=== PATIENT | male | born 1940 | race Caucasian/White ===

== ENCOUNTER 2020-05-26 18:31 | Emergency (ER) | payer MEDICARE, MEDICAID, SELFPAY ==
[2020-05-26 18:38] VITALS: BP 210/90; PULSE 102; RESP 20; TEMP 36.9; O2SAT 93; BMI 30.4
[2020-05-26 19:03] VITALS: BP 183/119; PULSE 106; RESP 16; O2SAT 95
--- NOTE | 2020-05-26 19:08 | XRR_ITS ---
PROCEDURE INFORMATION: Exam: XR Chest Exam date and time: 05/26/2020 7:20 PM Age: 79 years old Clinical indication: Other: Dizzy/weak; Additional info: Weakness TECHNIQUE: Imaging protocol: XR of the chest Views: 1 view. COMPARISON: CR Chest 1 [place] [id number] 01/07/2018 8:20 PM FINDINGS: Lungs: Under inflated lungs. No focal consolidation. Interstitium is grossly unremarkable. Pleural spaces: Unremarkable. No pleural effusion. No pneumothorax. Heart/Mediastinum: Mild cardiac enlargement. Bones/joints: Surgical anchors in the proximal right humerus. Bones are demineralized. No acute thoracic fractures. XR/XR chest 1V portable [id number] IMPRESSION: 1. No focal acute pulmonary disease. 2. No change from prior.
--- NOTE | 2020-05-26 19:20 | CTR_ITS ---
PROCEDURE INFORMATION: Exam: CT Head Without Contrast Exam date and time: 05/26/2020 7:27 PM Age: 79 years old Clinical indication: Patient HX: 3-4 episodes of dizziness today w HTN; Additional info: Syncope TECHNIQUE: Imaging protocol: Computed tomography of the head without contrast. Radiation optimization: All CT scans at this facility use at least one of these dose optimization techniques: automated exposure control; mA and/or kV adjustment per patient size (includes targeted exams where dose is matched to clinical indication); or iterative reconstruction. COMPARISON: CT head wo con* [id number] 03/27/2015 9:44 AM RADIATION DOSE METRICS: Total DLP (mGy-cm): 971.99 FINDINGS: Brain: There is moderate cerebral atrophy. No intracranial hemorrhage. No intracranial mass. No acute brain ischemia apparent. No midline shift of brain. Cerebral ventricles: No ventriculomegaly. Bones/joints: Unremarkable. No acute fracture. Paranasal sinuses: Visualized sinuses are unremarkable. No fluid levels. Mastoid air cells: Visualized mastoid air cells are well aerated. Orbital cavity: Orbits are symmetric. Bilateral lens replacements. Vasculature: Intracranial atherosclerosis. Soft tissues: Unremarkable. CT/CT head wo con* [id number] IMPRESSION: 1. No acute intracranial abnormality. 2. No change in the brain from comparison on 03/27/2015. Radiation Dose CTDIVOL = (mGy): DLP = 971.99 (mGy-cm)
--- NOTE | 2020-05-26 19:27 | W.ED.DIZZY ---
HPI - Dizziness General: Chief Complaint: Dizziness Stated Complaint: feels faint Time Seen by Provider: 05/26/20 18:56 Source: patient Mode of arrival: ambulatory Limitations: no limitations History of Present Illness: HPI Narrative: 79-year-old male states that today he has been feeling lightheaded at times and like he may pass out. He states last instance was at 3 PM. He is not had any syncope. Denies any headache denies any chest pain and has not had any shortness of breath. Patient is quite hypertensive here and he denies any known history of high blood pressure but states he does not take his blood pressure on a regular basis. He has no complaints at this time. Associated symptoms: Denies chest pain, chills, nausea or vomiting Review of Systems Const: Denies: fever(s), chills, body aches or change in appetite Eyes: Denies: blurry vision or eye discomfort ENMT: Denies: throat pain or dental pain Card: Denies: chest pain Resp: Denies: dyspnea GI: Denies: abdominal pain, nausea, vomiting or diarrhea : Denies: dysuria Musc: Denies: neck pain or back pain Skin/Breast: Denies: rash Neuro: Reports: dizziness Psych: Denies: depression Daniel/Lymph: Denies: easy bruising All/Imm: Denies: urticaria PFSH ED PFSH: Medical History (Updated 05/26/20 @ 21:05 by Chaz Lopez MD) Atherosclerotic heart disease of [place] coronary artery without angina pectoris Benign essential HTN Chronic episodic atrial fibrillation Dyslipidemia (high LDL; low HDL) Fibromyalgia GERD (gastroesophageal reflux disease) History of atrial fibrillation History of colon polyps Insomnia Lumbar disc disease Surgical History History of cardiac cath History of cholecystectomy History of colonoscopy History of shoulder surgery Family History Brother CAD (coronary artery disease) Social History Smoking and tobacco status: former smoker Alcohol intake: current Alcohol intake frequency: holidays/special occasions only Housing: House Marital status: / History of recent travel: No Physical Exam Const: COMMON NORMALS: no acute distress, patient oriented x3 and healthy appearing HENMT: COMMON NORMALS: normocephalic and atraumatic HEAD & SCALP: normocephalic and atraumatic Eye: COMMON NORMALS: Equal, round and reactive pupils present and EOMs intact bilaterally PUPIL: Yes Equal, round and reactive pupils present Neck/C-Spine: COMMON NORMALS: full ROM and supple Chest: COMMONS NORMALS: normal inspection of the chest and normal palpation of entire chest wall Resp: COMMON NORMALS: normal respiratory effort, No retractions, No use of accessory muscles and clear to auscultation bilaterally AUSCULTATION: clear to auscultation bilaterally Cardio: COMMON NORMALS: regular rate, regular rhythm and No murmurs present (Cardio) RATE: regular rate RHYTHM: regular rhythm GI: COMMON NORMALS: Normal to inspection, nondistended, normoactive bowel sounds present, Soft to palpation, non-tender and no masses PALPATION: Yes Soft to palpation Extremity: COMMON NORMALS: normal to inspection and full ROM Neuro: COMMON NORMALS: patient oriented x3, moves all extremities and no focal motor deficits Psych: COMMON NORMALS: mental status grossly normal, Normal thought process present and cooperative THOUGHT PROCESS: Normal thought process present Skin: COMMON NORMALS: no rashes or lesions noted and no wounds GENERAL SKIN EXAM: no rashes or lesions noted Course Vital Signs: Vital signs: Vital Signs Temperature 98.4 F 05/26/20 18:38 Pulse Rate 76 05/26/20 21:40 Respiratory Rate 16 05/26/20 21:40 Blood Pressure 168/87 05/26/20 21:40 Pulse Oximetry 97 05/26/20 21:40 MDM - Dizziness MDM Narrative: Medical decision making narrative: David presents here with high blood pressure along with near syncope. He is well-appearing here and is asymptomatic here. He said no chest pain his head CT is normal. He has no signs of stroke. Patient's blood pressure here is improved after labetalol. We will start him on metoprolol and he is to take his blood pressure 3 times a day and follow-up his PCP in 3 to 5 days. He is return if he has any return of his symptoms. He understands and agrees to this plan. Lab Data: Labs: Lab Results 05/26/20 05/26/20 05/26/20 Range/Units 19:27 19:27 20:09 WBC 7.9 (4.0-10.0) 10^3/ uL RBC 4.75 (4.1-5.3) 10^6/u L Hgb 15.7 (11.7-16.6) g/dL Hct 45.6 (42.0-52.0) % MCV 96.0 H (80-94) fL MCH 33.1 (28.0-34.0) pg MCHC 34.4 (30.0-36.0) g/dL RDW 12.9 (12.1-15.1) % Plt Count 219 (130-400) 10^3/c mm MPV 9.5 (7.4-10.4) fL Neut % (Auto) 77.8 % Lymph % (Auto) 16.4 % [place] % (Auto) 5.1 % Eos % (Auto) 0.3 % Baso % (Auto) 0.3 % Neut # (Auto) 6.17 (1.8-7.7) 10^3/u L Lymph # (Auto) 1.3 (0.8-4.8) 10^3/u L [place] # (Auto) 0.4 (0.2-0.9) 10^3/u L Eos # (Auto) 0.0 (0.0-0.8) 10^3/u L Baso # (Auto) 0.0 (0.0-0.1) 10^3/u L Nucleated RBC % (a uto) 0 % Nucleated RBCs # 0.0 /100WBC Sodium 137 (136-145) mmol/L Potassium 3.9 (3.5-5.1) mmol/L Chloride 99 (98-107) mmol/L Carbon Dioxide 26 (22-29) mmol/L Anion Gap 15.9 (5-19) BUN 11 (8-23) mg/dL Creatinine 1.0 (0.7-1.2) mg/dL GFR Calculation Not Reportable Glucose 109 (65-115) mg/dL Calculated Osmolal ity 284 L (285-295) mOsm/k g Calcium 9.0 (8.5-10.5) mg/dL Total Bilirubin 0.6 (0.15-1.2) mg/dL AST 17 (0-40) U/L ALT 11 (0-41) U/L Alkaline Phosphata se 79 (40-130) IU/L Total Protein 8.2 (6.6-8.7) g/dL Albumin 4.6 (3.5-5.2) g/dL Globulin 3.6 (1.3-4.6) g/dL Urine Color Yellow (Yellow) Urine Appearance Clear (CLEAR) Urine pH 8 H (5-7) Ur Specific Gravit y 1.010 (1.005-1.030) Urine Protein Neg (Negative) Urine Glucose (UA) 1+ (Normal) Urine Ketones 1+ H (Negative) Urine Blood 2+ H (Negative) Urine Nitrate Negative (Negative) Urine Bilirubin Neg (Negative) Prot Sulfosalicyli c Acd Negative (Negative) Urine Urobilinogen Norm (Negative) mg/dL Ur Leukocyte [place] ase Negative (Negative) Urine RBC 5-10 H (0-2) /hpf Urine WBC 0-4 H (0-5) /hpf Ur Squamous Epith Cells 0-4 H (0-5) /hpf Amorphous Sediment Not Reportable Urine Bacteria Trace (NONE) /hpf Urine Mucus Trace /hpf Imaging Data^: CT Head: Attestation: I personally reviewed and interpreted this imaging study as follows: Radiologist's impression: [address] [address] [address] Scan Report Signed Patient: David Orozco Unit #: [id number] : 1940 Age/Sex: 79 / M ADM Date: 05/26/20 Loc: ER Room/Bed: Attending Dr: Ordering Provider/Ordering MD: Chaz Lopez MD Date of Service: 05/26/20 Procedure(s): CT head wo con* [id number] Accession Number(s): [id number] Report Number: [id number] PROCEDURE INFORMATION: Exam: CT Head Without Contrast Exam date and time: 05/26/2020 7:27 PM Age: 79 years old Clinical indication: Patient HX: 3-4 episodes of dizziness today w HTN; Additional info: Syncope TECHNIQUE: Imaging protocol: Computed tomography of the head without contrast. Radiation optimization: All CT scans at this facility use at least one of these dose optimization techniques: automated exposure control; mA and/or kV adjustment per patient size (includes targeted exams where dose is matched to clinical indication); or iterative reconstruction. COMPARISON: CT head wo con* [id number] 03/27/2015 9:44 AM RADIATION DOSE METRICS: Total DLP (mGy-cm): 971.99 FINDINGS: Brain: There is moderate cerebral atrophy. No intracranial hemorrhage. No intracranial mass. No acute brain ischemia apparent. No midline shift of brain. Cerebral ventricles: No ventriculomegaly. Bones/joints: Unremarkable. No acute fracture. Paranasal sinuses: Visualized sinuses are unremarkable. No fluid levels. Mastoid air cells: Visualized mastoid air cells are well aerated. Orbital cavity: Orbits are symmetric. Bilateral lens replacements. Vasculature: Intracranial atherosclerosis. Soft tissues: Unremarkable. CT/CT head wo con* [id number] IMPRESSION: 1. No acute intracranial abnormality. 2. No change in the brain from comparison on 03/27/2015. EKG Data^: EKG 1: Attestation: I personally reviewed and interpreted this EKG as follows: EKG interpretation date: 05/26/20 EKG interpretation time: 18:47 Interpretation: sinus tach hr [address] or t wave abnormalities qrs 94 qtc 395 Discharge Plan Discharge Patient Disposition: Home Clinical Impression: Near syncope Hypertension Qualifiers: Hypertension type: unspecified Qualified Code(s): I10 - Essential (primary) hypertension Condition: Stable Prescriptions: New metoprolol succinate 50 mg tablet extended release 24 hr 50 mg PO DAILY Qty: 30 RF: 0 No Action ezetimibe [Zetia] 10 mg tablet 10 mg PO DAILY Qty: 90 RF: 3 Aspir-81 81 mg Tablet,Delayed Release (Dr/Ec) 81 mg PO DAILY RF: 0 vitamin E 1 cap PO DAILY RF: 0 Discharge Orders: Discharge ED (Routine); Ordered 05/26/20 Ordered By: Chaz Lopez Referrals: Denis Nowak MD [Primary Care Provider] - 1-3 days Discharge Diet: Advance as tolerated Discharge Activity: Resume usual activity Patient Instructions: Hypertension (ED) Coding Level of Care Code ED Cutting Machine Fixer for Chg Fwd Exam Comprehensive
[2020-05-26] MEDS: labetalol 5 mg/mL SDV 20mL 10 MG IVP (19:31)
--- NOTE | 2020-05-26 19:31 | PC.NURSE ---
PATIENT TO CT
[2020-05-26 19:33] LABS: Basophils % 0.3 %; Eosinophils % 0.3 %; Hematocrit 45.6 % (42.0-52.0); Hemoglobin 15.7 g/dL (11.7-16.6); Lymphocytes # 1.3 10^3/uL (0.8-4.8); Lymphocytes % 16.4 %; Mean Corpuscular HGB Conc 34.4 g/dL (30.0-36.0); Mean Corpuscular Hemoglobin 33.1 pg (28.0-34.0); Mean Platelet Volume 9.5 fL (7.4-10.4); Monocytes # 0.4 10^3/uL (0.2-0.9); Monocytes % 5.1 %; Neutrophils # 6.17 10^3/uL (1.8-7.7); Neutrophils % 77.8 %; Nucleated Red Blood Cells % 0 %; Platelet Count 219 10^3/cmm (130-400); Red Blood Count 4.75 10^6/uL (4.1-5.3); Red Cell Distribution Width 12.9 % (12.1-15.1); White Blood Count 7.9 10^3/uL (4.0-10.0)
--- NOTE | 2020-05-26 19:48 | PC.PHAR ---
pt states he takes care of his own medications-pt states he doesnt take his zetia like he is suppose to pt states he is unsure when he last took
[2020-05-26 19:50] LABS: Alanine Aminotransferase 11 U/L (0-41); Albumin Level 4.6 g/dL (3.5-5.2); Alkaline Phosphatase 79 IU/L (40-130); Anion Gap 15.9 (5-19); Aspartate Amino Transferase 17 U/L (0-40); Blood Urea Nitrogen 11 mg/dL (8-23); Carbon Dioxide 26 mmol/L (22-29); Chloride 99 mmol/L (98-107); Globulin 3.6 g/dL (1.3-4.6); Glucose 109 mg/dL (65-115); Osmolality Calculated 284 mOsm/kg (285-295); Potassium 3.9 mmol/L (3.5-5.1); Sodium 137 mmol/L (136-145); Total Bilirubin 0.6 mg/dL (0.15-1.2); Total Protein 8.2 g/dL (6.6-8.7)
[2020-05-26 20:02] VITALS: BP 189/110; PULSE 90; O2SAT 94
[2020-05-26 20:24] LABS: Add Urine Microscopic? YES; Bacteria Urine TRACE /hpf; Bilirubin Urine Neg (Negative); Blood Urine 2+ (Negative); Glucose Urine UA 1+ (Normal); Ketones Urine 1+ (Negative); Leukocyte Esterase Urine Negative (Negative); Mucus Urine TRACE /hpf; Nitrate Urine Negative (Negative); Protein Urine Neg (Negative); Squamous Epithelial Cell Urine 0-4 /hpf (0-5); Sulfosalicylic Acid Urine Negative (Negative); Urine Appearance Clear (CLEAR); Urine Color Yellow (Yellow); Urobilinogen Urine Norm (Negative); WBC Urine 0-4 /hpf (0-5); pH Urine 8 (5-7)
[2020-05-26 20:31] VITALS: BP 172/86; PULSE 83; RESP 16; O2SAT 97
[2020-05-26 21:40] VITALS: BP 168/87; PULSE 76; RESP 16; O2SAT 97
[2020-05-26 21:41] VITALS: BP 183/104; PULSE 71; RESP 17; O2SAT 96
== END 2020-05-26 21:44 | disposition home or self-care (01) ==
PROVIDERS: Emergency Provider Emergency Medicine; PCP Internal Medicine
DX: R55 Syncope and collapse (principal); I10 Essential (primary) hypertension; Z79.82 Long term (current) use of aspirin; I25.10 Atherosclerotic heart disease of native coronary artery without angina pectoris; I48.20 Chronic atrial fibrillation, unspecified; E78.5 Hyperlipidemia, unspecified; Z87.891 Personal history of nicotine dependence
CPT/HCPCS: 70450; 71045; 80053; 81001; 85025; 96374; 99283; J3490

== ENCOUNTER → 2020-06-28 12:43 | Outpatient (BNVA) | payer MEDICARE, MEDICAID, SELFPAY | PROVIDERS: PCP Internal Medicine; Visit Provider Internal Medicine Cardiovascular Disease | DX: R06.02 Shortness of breath (principal); I50.33 Acute on chronic diastolic (congestive) heart failure; I48.20 Chronic atrial fibrillation, unspecified; E78.5 Hyperlipidemia, unspecified; I10 Essential (primary) hypertension; I25.10 Atherosclerotic heart disease of native coronary artery without angina pectoris | CPT/HCPCS: 80048; 83880 ==

== ENCOUNTER 2020-07-06 19:49 | Observation (INO) | payer MEDICARE, MEDICAID, SELFPAY ==
[2020-07-06 19:57] VITALS: PULSE 49; RESP 18; TEMP 36.6; O2SAT 97; BMI 30.4
--- NOTE | 2020-07-06 20:15 | XRR_ITS ---
PROCEDURE INFORMATION: Exam: XR Chest Exam date and time: 07/06/2020 8:20 PM Age: 79 years old Clinical indication: Pain; Other: Afib; Prior surgery; Surgery type: Gb, RT shoulder; Additional info: Arrythmia TECHNIQUE: Imaging protocol: XR of the chest. Views: 1 view. Total images: 1 COMPARISON: CR XR chest 1V portable [id number] 05/26/2020 7:09 PM FINDINGS: Lungs: No visible active interstitial or alveolar airspace disease. Pleural spaces: Unremarkable. No pleural effusion. No pneumothorax. Heart/Mediastinum: Cardiomegaly with arteriosclerosis. Bones/joints: Right shoulder tendon anchors. Other findings: Obesity. XR/XR chest 1V portable [id number] IMPRESSION: Nonacute.
[2020-07-06 20:18] VITALS: BP 202/100
--- NOTE | 2020-07-06 20:18 | ECG_ITS ---
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 Measurements Intervals [place] Rate: 90 P: RI: QRS: -44 QRSD: 89 T: -8 QT: 366 QTc: 450 Interpretive Statements SINUS RHYTHM LEFT AXIS DEVIATION [QRS AXIS < -30] Compared to ECG 01/07/2018 23:26:51 Left-axis deviation now present T-wave abnormality no longer present Electronically Signed On 07-07-2020 7:15:23 CDT by Anna Soto M.D. [id number]
--- NOTE | 2020-07-06 20:18 | ED_ITS ---
HPI - Dizziness General: Chief Complaint: Dizziness Stated Complaint: htn dizzy Time Seen by Provider: 07/06/20 19:54 Source: patient Mode of arrival: EMS Limitations: no limitations History of Present Illness: HPI Narrative: 79-year-old male brought in by EMS with complaints of dizziness, palpitations, and felt like he was in a pass out. Symptoms were sudden on onset this afternoon. No associated nausea, vomiting, chest pain, diaphoresis. He was seen by cardiology last week, started on losartan for hypertension. Has a remote history of A. fib. EMS noted his pulse to be varying between 30s and 100s. MD elicited complaint: dizziness, lightheadedness and near syncope Onset (ago): hour(s) Associated symptoms: Denies chest pain, chills, diaphoresis, headache(s), nausea, palpitations or vomiting Associated neuro symptoms: Deny numbness in extremities Review of Systems General: Reports: 10 or more systems reviewed and unremarkable except in HPI and below Const: Reports: fatigue; Denies: fever(s), chills, body aches, change in appetite or diaphoresis Eyes: Denies: change in vision or blurry vision ENMT: Denies: throat pain, odynophagia or swelling of lips/tongue Card: Reports: irregular heart rhythm, lightheadedness and pre-syncope; Denies: chest pain, palpitations or swelling of feet/ankles Resp: Denies: dyspnea, productive cough, non-productive cough or wheezing GI: Denies: abdominal pain, nausea, vomiting or diarrhea : Denies: flank pain, difficulty urinating or dysuria Musc: Denies: neck pain, back pain or extremity pain Skin/Breast: Denies: rash, pruritus or erythema Neuro: Denies: headache(s), numbness in extremities or weakness in extremities Endo: Denies: polyuria, polydipsia or tired all the time PFS ED PFSH: Medical History Atherosclerotic heart disease of [place] coronary artery without angina pectoris Benign essential HTN 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 Father Dementia Denies family history of Diabetes CAD (coronary artery disease) Clotting disorder Chronic kidney disease (CKD) Suicide Anesthesia complication Bleeding disorder Lung disease Cancer Stroke Social History Smoking and tobacco status: former smoker Alcohol intake: current Alcohol intake frequency: holidays/special occasions only Housing: House Marital status: / History of recent travel: No Physical Exam Const: COMMON NORMALS: no acute distress, patient oriented x3, no limitations, healthy appearing and alert GENERAL APPEARANCE: cooperative, comfortable and well kempt; not in distress and not anxious ORIENTATION/CONSCIOUSNESS: Yes oriented to person and Yes oriented to place Eye: COMMON NORMALS: Equal, round and reactive pupils present, EOMs intact bilaterally, conjunctivae normal and negative for no scleral icterus CONJUNCTIVA: Yes conjunctivae normal PUPIL: Yes Equal, round and reactive pupils present Neck/C-Spine: COMMON NORMALS: no JVD Resp: COMMON NORMALS: normal respiratory effort EFFORT & INSPECTION: Yes able to speak in complete sentences, Yes symmetric chest movement and No tachypneic Cardio: COMMON NORMALS: no JVD, S1 normal heart sound present, S2 normal heart sound present and Peripheral pulses 2+ throughout RATE: bradycardic RHYTHM: abnormal rhythm irregularly irregular and with ectopic beats HEART SOUNDS: S1 normal heart sound present and S2 normal heart sound present PERIPHERAL PULSES: Peripheral pulses 2+ throughout Extremity: COMMON NORMALS: normal to inspection, full ROM, capillary refill normal and no pedal edema Neuro: COMMON NORMALS: patient oriented x3 and no focal motor deficits SENSORIUM/ORIENTATION: Yes alert, Yes oriented to person and Yes oriented to place Psych: APPEARANCE: Yes well kempt Skin: COMMON NORMALS: no rashes or lesions noted, no wounds, turgor normal and no jaundice GENERAL SKIN EXAM: no rashes or lesions noted and turgor normal Course Vital Signs: Vital signs: Vital Signs Temperature 97.7 F 07/07/20 04:00 Pulse Rate 47 L 07/07/20 04:00 Respiratory Rate 17 07/07/20 04:00 Blood Pressure 147/74 07/07/20 06:19 Pulse Oximetry 95 07/07/20 04:00 MDM - Dizziness MDM Narrative: Medical decision making narrative: 79-year-old male with presyncopal symptoms today, elevated blood pressures. Heart rate irregular, alternating between bradycardia in the high 30s to normal sinus rhythm in the 80s. No heartblock. No ST elevation or depression. He is not having any chest pain. serial troponins stable. Thyroid function tests pending. Discussed with Dr Berkowitz, tactical deception plans officer, who reccommended admission, he will consult tomorrow. NO BP meds. Dr Thomas accepts the admission. Differential Diagnosis: Dizziness Differential Diagnosis: Likely benign paroxysmal positional vertigo, orthostatic hypotension, cerebrovascular accident and transient cerebral ischemia Medical Records: Attestation: I reviewed the patient's medical records. Lab Data: Attestation: I reviewed the patient's lab results. Labs: Lab Results 07/06/20 07/06/20 07/06/20 Range/Units 20:05 20:05 20:05 WBC 9.1 (4.0-10.0) 10^3/ uL RBC 4.56 (4.1-5.3) 10^6/u L Hgb 14.8 (11.7-16.6) g/dL Hct 44.2 (42.0-52.0) % MCV 96.9 H (80-94) fL MCH 32.5 (28.0-34.0) pg MCHC 33.5 (30.0-36.0) g/dL RDW 12.5 (12.1-15.1) % Plt Count 212 (130-400) 10^3/c mm MPV 10.4 (7.4-10.4) fL Neut % (Auto) 71.2 % Lymph % (Auto) 17.3 % [place] % (Auto) 9.6 % Eos % (Auto) 1.3 % Baso % (Auto) 0.3 % Neut # (Auto) 6.44 (1.8-7.7) 10^3/u L Lymph # (Auto) 1.6 (0.8-4.8) 10^3/u L [place] # (Auto) 0.9 (0.2-0.9) 10^3/u L Eos # (Auto) 0.1 (0.0-0.8) 10^3/u L Baso # (Auto) 0.0 (0.0-0.1) 10^3/u L Nucleated RBC % (a uto) 0 % Nucleated RBCs # 0.0 /100WBC PT 14.20 (12.1-14.9) SECO NDS INR 1.06 (0.8-1.2) Sodium 136 (136-145) mmol/L Potassium 3.7 (3.5-5.1) mmol/L Chloride 100 (98-107) mmol/L Carbon Dioxide 26 (22-29) mmol/L Anion Gap 13.7 (5-19) BUN 11 (8-23) mg/dL Creatinine 0.9 (0.7-1.2) mg/dL GFR Calculation Not Reportable Glucose 109 (65-115) mg/dL Calculated Osmolal ity 282 L (285-295) mOsm/k g Calcium 8.6 (8.5-10.5) mg/dL Magnesium 1.9 (1.7-2.3) mg/dL Total Bilirubin 0.7 (0.15-1.2) mg/dL AST 17 (0-40) U/L ALT 10 (0-41) U/L Alkaline Phosphata se 76 (40-130) IU/L Troponin T Baselin e (0-15) ng/L Troponin T 120 Min [place] (0-15) ng/L Delta Troponin T (0-10) ABS# NT-Pro-B Natriuret Pep 191 (0-450) pg/mL Total Protein 7.1 (6.6-8.7) g/dL Albumin 4.4 (3.5-5.2) g/dL Globulin 2.7 (1.3-4.6) g/dL TSH (0.27-4.20) uIU/ mL Free T4 (0.82-1.77) ng/d L Urine Color (Yellow) Urine Appearance (CLEAR) Urine pH (5-7) Ur Specific Gravit y (1.005-1.030) Urine Protein (Negative) Urine Glucose (UA) (Normal) Urine Ketones (Negative) Urine Blood (Negative) Urine Nitrate (Negative) Urine Bilirubin (Negative) Prot Sulfosalicyli c Acd (Negative) Urine Urobilinogen (Negative) mg/dL Ur Leukocyte [place]ils[place] ase (Negative) 07/06/20 07/06/20 07/06/20 Range/Units 20:05 20:05 20:05 WBC (4.0-10.0) 10^3/ uL RBC (4.1-5.3) 10^6/u L Hgb (11.7-16.6) g/dL Hct (42.0-52.0) % MCV (80-94) fL MCH (28.0-34.0) pg MCHC (30.0-36.0) g/dL RDW (12.1-15.1) % Plt Count (130-400) 10^3/c mm MPV (7.4-10.4) fL Neut % (Auto) % Lymph % (Auto) % [place] % (Auto) % Eos % (Auto) % Baso % (Auto) % Neut # (Auto) (1.8-7.7) 10^3/u L Lymph # (Auto) (0.8-4.8) 10^3/u L [place] # (Auto) (0.2-0.9) 10^3/u L Eos # (Auto) (0.0-0.8) 10^3/u L Baso # (Auto) (0.0-0.1) 10^3/u L Nucleated RBC % (a uto) % Nucleated RBCs # /100WBC PT (12.1-14.9) SECO NDS INR (0.8-1.2) Sodium (136-145) mmol/L Potassium (3.5-5.1) mmol/L Chloride (98-107) mmol/L Carbon Dioxide (22-29) mmol/L Anion Gap (5-19) BUN (8-23) mg/dL Creatinine (0.7-1.2) mg/dL GFR Calculation Glucose (65-115) mg/dL Calculated Osmolal ity (285-295) mOsm/k g Calcium (8.5-10.5) mg/dL Magnesium (1.7-2.3) mg/dL Total Bilirubin (0.15-1.2) mg/dL AST (0-40) U/L ALT (0-41) U/L Alkaline Phosphata se (40-130) IU/L Troponin T Baselin e 13 (0-15) ng/L Troponin T 120 Min [place] (0-15) ng/L Delta Troponin T (0-10) ABS# NT-Pro-B Natriuret Pep (0-450) pg/mL Total Protein (6.6-8.7) g/dL Albumin (3.5-5.2) g/dL Globulin (1.3-4.6) g/dL TSH 5.84 H (0.27-4.20) uIU/ mL Free T4 1.17 (0.82-1.77) ng/d L Urine Color (Yellow) Urine Appearance (CLEAR) Urine pH (5-7) Ur Specific Gravit y (1.005-1.030) Urine Protein (Negative) Urine Glucose (UA) (Normal) Urine Ketones (Negative) Urine Blood (Negative) Urine Nitrate (Negative) Urine Bilirubin (Negative) Prot Sulfosalicyli c Acd (Negative) Urine Urobilinogen (Negative) mg/dL Ur Leukocyte Nilsa ase (Negative) 07/06/20 07/06/20 Range/Units 20:45 21:15 WBC (4.0-10.0) 10^3/ uL RBC (4.1-5.3) 10^6/u L Hgb (11.7-16.6) g/dL Hct (42.0-52.0) % MCV (80-94) fL MCH (28.0-34.0) pg MCHC (30.0-36.0) g/dL RDW (12.1-15.1) % Plt Count (130-400) 10^3/c mm MPV (7.4-10.4) fL Neut % (Auto) % Lymph % (Auto) % [place] % (Auto) % Eos % (Auto) % Baso % (Auto) % Neut # (Auto) (1.8-7.7) 10^3/u L Lymph # (Auto) (0.8-4.8) 10^3/u L [place] # (Auto) (0.2-0.9) 10^3/u L Eos # (Auto) (0.0-0.8) 10^3/u L Baso # (Auto) (0.0-0.1) 10^3/u L Nucleated RBC % (a uto) % Nucleated RBCs # /100WBC PT (12.1-14.9) SECO NDS INR (0.8-1.2) Sodium (136-145) mmol/L Potassium (3.5-5.1) mmol/L Chloride (98-107) mmol/L Carbon Dioxide (22-29) mmol/L Anion Gap (5-19) BUN (8-23) mg/dL Creatinine (0.7-1.2) mg/dL GFR Calculation Glucose (65-115) mg/dL Calculated Osmolal ity (285-295) mOsm/k g Calcium (8.5-10.5) mg/dL Magnesium (1.7-2.3) mg/dL Total Bilirubin (0.15-1.2) mg/dL AST (0-40) U/L ALT (0-41) U/L Alkaline Phosphata se (40-130) IU/L Troponin T Baselin e (0-15) ng/L Troponin T 120 Min [place] 12.32 (0-15) ng/L Delta Troponin T -0.68 L (0-10) ABS# NT-Pro-B Natriuret Pep (0-450) pg/mL Total Protein (6.6-8.7) g/dL Albumin (3.5-5.2) g/dL Globulin (1.3-4.6) g/dL TSH (0.27-4.20) uIU/ mL Free T4 (0.82-1.77) ng/d L Urine Color Yellow (Yellow) Urine Appearance Clear (CLEAR) Urine pH 8 H (5-7) Ur Specific Gravit y 1.010 (1.005-1.030) Urine Protein Neg (Negative) Urine Glucose (UA) Trace H (Normal) Urine Ketones Negative (Negative) Urine Blood Neg (Negative) Urine Nitrate Negative (Negative) Urine Bilirubin Neg (Negative) Prot Sulfosalicyli c Acd Negative (Negative) Urine Urobilinogen Norm (Negative) mg/dL Ur Leukocyte Nilsa ase Negative (Negative) EKG Data^: EKG 1: Attestation: I personally reviewed and interpreted this EKG as follows: EKG interpretation date: 07/06/20 EKG interpretation time: 20:25 Computer generated interpretation: Indeterminate rhythm, rate 90, Discharge Plan Discharge Patient Disposition: Placed in Observation Admit Provider: Antoinette Thomas Clinical Impression: Symptomatic bradycardia Coding Level of Care Code ED Osd Clerk for Chg Fwd Exam Comprehensive
[2020-07-06 20:27] LABS: Basophils % 0.3 %; Eosinophils # 0.1 10^3/uL (0.0-0.8); Eosinophils % 1.3 %; Hematocrit 44.2 % (42.0-52.0); Hemoglobin 14.8 g/dL (11.7-16.6); Lymphocytes # 1.6 10^3/uL (0.8-4.8); Lymphocytes % 17.3 %; Mean Corpuscular HGB Conc 33.5 g/dL (30.0-36.0); Mean Corpuscular Hemoglobin 32.5 pg (28.0-34.0); Mean Corpuscular Volume 96.9 fL (80-94); Mean Platelet Volume 10.4 fL (7.4-10.4); Monocytes # 0.9 10^3/uL (0.2-0.9); Monocytes % 9.6 %; Neutrophils # 6.44 10^3/uL (1.8-7.7); Neutrophils % 71.2 %; Nucleated Red Blood Cells % 0 %; Platelet Count 212 10^3/cmm (130-400); Red Blood Count 4.56 10^6/uL (4.1-5.3); Red Cell Distribution Width 12.5 % (12.1-15.1); White Blood Count 9.1 10^3/uL (4.0-10.0)
[2020-07-06 20:39] LABS: Troponin(5th) Baseline 13 ng/L (0-15)
[2020-07-06 20:40] LABS: INR 1.06 (0.8-1.2)
[2020-07-06 20:46] LABS: Alanine Aminotransferase 10 U/L (0-41); Albumin Level 4.4 g/dL (3.5-5.2); Alkaline Phosphatase 76 IU/L (40-130); Aspartate Amino Transferase 17 U/L (0-40); Blood Urea Nitrogen 11 mg/dL (8-23); Calcium 8.6 mg/dL (8.5-10.5); Carbon Dioxide 26 mmol/L (22-29); Chloride 100 mmol/L (98-107); Globulin 2.7 g/dL (1.3-4.6); Glucose 109 mg/dL (65-115); Magnesium 1.9 mg/dL (1.7-2.3); NT Pro B Type Natriuretic Pept 191 pg/mL (0-450); Osmolality Calculated 282 mOsm/kg (285-295); Sodium 136 mmol/L (136-145); Total Bilirubin 0.7 mg/dL (0.15-1.2); Total Protein 7.1 g/dL (6.6-8.7)
[2020-07-06 20:53] LABS: Anion Gap 13.7 (5-19); Potassium 3.7 mmol/L (3.5-5.1)
[2020-07-06 20:57] LABS: Add Urine Microscopic? NO; Charge for UA Resulting for Rev
[2020-07-06 21:04] LABS: Bilirubin Urine Neg (Negative); Blood Urine Neg (Negative); Glucose Urine UA Trace (Normal); Ketones Urine Negative (Negative); Leukocyte Esterase Urine Negative (Negative); Nitrate Urine Negative (Negative); Protein Urine Neg (Negative); Sulfosalicylic Acid Urine Negative (Negative); Urine Appearance Clear (CLEAR); Urine Color Yellow (Yellow); Urobilinogen Urine Norm (Negative); pH Urine 8 (5-7)
[2020-07-06 21:27] LABS: Thyroid Stimulating Hormone 5.84 uIU/mL (0.27-4.20)
--- NOTE | 2020-07-06 21:31 | PM.HP ---
Providers/Chief Complaint Primary Care Provider: Denis Nowak MD Chief Complaint: htn dizzy History of Present Illness David Orozco is a 79 year old male who has known history of atherosclerotic heart disease, BPH, paroxysmal A. fib(refused anticoagulation), has been recently evaluated for dizziness and hypertension by cardiology presented today with chief complaint of dizziness. Patient was in usual state of health until today when he started experiencing dizziness which he is describing as lightheadedness, no recent syncope or fall, he was [place] [facility] [facility] when his symptoms started. He did not experience any fever, chest pain, shortness of breath, as per the he seemed a bit confused as well at home. He does not take any AV zachary blocking agent, never took any anticoagulating agent, has mild coronary disease as per cardiac cath 2003. No previous history of thyroid disease. Diagnostics in the ER revealed sinus bradycardia, patient was asymptomatic, his was hemodynamically stable, TSH 5.8 otherwise electrolytes are normal magnesium 1.9, hypertensive, case was discussed with cardiology who recommended monitoring, no intervention because he is asymptomatic in the ER, his lowest heart rate was 45 detected in the ER Review of Systems Eyes: Denies: change in vision ENMT: Denies: throat pain Card: Reports: lightheadedness; Denies: chest pain Resp: Denies: dyspnea GI: Denies: abdominal pain : Denies: flank pain Musc: Denies: neck pain Skin/Breast: Denies: rash Neuro: Denies: headache(s) Psych: Denies: anxiety Endo: Denies: polyuria Daniel/Lymph: Denies: easy bruising All/Imm: Denies: urticaria Medications/Allergies Home Medications Medication Instructions Recorded Confirmed Last Taken Type aspirin [Aspir-81] 81 mg PO QAM 05/26/20 07/06/20 07/06/20 History vitamin E 1 cap PO QAM 05/26/20 07/06/20 07/06/20 History Zetia 10 mg PO QAM 07/06/20 07/06/20 07/06/20 History losartan 50 mg PO QAM 07/06/20 07/06/20 07/06/20 History Allergies Allergy/AdvReac Type Severity Reaction Status Date / Time atorvastatin [From Lipitor] Allergy Unknown Verified 07/06/20 20:59 cimetidine [From Tagamet] Allergy ALGY-Anaphy Verified 07/06/20 20:59 laxis pravastatin Allergy Unknown Verified 07/06/20 20:59 acetaminophen [From [place]] AdvReac ADR-Itching Verified 07/06/20 20:59 hydrocodone [From [place]] AdvReac ADR-Itching Verified 07/06/20 20:59 PFSH Acute PFSH: Medical History (Updated 07/06/20 @ 22:54 by Antoinette Thomas MD) Atherosclerotic heart disease of [place] coronary artery without angina pectoris Benign essential HTN 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 Father Dementia Denies family history of Diabetes CAD (coronary artery disease) Clotting disorder Chronic kidney disease (CKD) Suicide Anesthesia complication Bleeding disorder Lung disease Cancer Stroke Social History Smoking and tobacco status: former smoker Alcohol intake: current Alcohol intake frequency: holidays/special occasions only Housing: House Marital status: / History of recent travel: No Vitals/I&O/Wt Last Vital Signs Temp 97.8 F 07/06/20 19:57 Pulse 49 L 07/06/20 19:57 Resp 18 07/06/20 19:57 BP 202/100 07/06/20 20:18 Pulse Ox 97 07/06/20 19:57 Weight last 48 hrs Weight 90.718 kg Physical Exam Narrative: EXAM NARRATIVE: Pleasant elderly male Was laying supine in his bed no hemodynamic instability heart rate in 60s at the time of my evaluation No active chest pain shortness of breath abdominal pain S1, S2 no murmur appreciated No signs of heart failure Abdomen distended central obesity nontender Lower symmetry no edema gangrene ulcer Appropriate mood and affect GCS 15 alert oriented x3 No neurological deficit Data : 07/06/20 20:05 07/06/20 20:05 A&P Assessment and plan (1) Symptomatic bradycardia: Symptomatic bradycardia patient described his symptoms as lightheadedness Hypertensive, no active chest pain confusion or shortness of breath No AV zachary blocking agent detected in his home medications No previous history of thyroid disease however TSH is 5.8 will check free T4 level, hold off on starting levothyroxine for now Will follow up with echo in the morning No intervention needed as he is asymptomatic during my evaluation and heart rate is in 60s Monitor with telemetry No active chest pain, troponin not elevated, highly doubt coronary ischemia Consider cardiology evaluation before discharge if he would require Holter monitoring Status: Acute Additional A&P Information History of atrial fibrillation: Not on any AV zachary blocking agent, patient refused anticoagulation in the past Currently in sinus bradycardia Essential hypertension: We will increase dose of losartan to 100 mg daily Cardiac diet DVT prophylaxis Lovenox Full code Attestations Medical Necessity Statement*: Anticipating discharge in less than 48 hours overnight monitoring needed because of symptomatic bradycardia Time Spent in Patient Care: (>than 50% of time spent in counselling and/or direct pt care on unit). 40mins Coding Level of Care Code Acute Car Installations Supervisor for Victor M Hale Diagnoses Symptomatic bradycardia R00.1
[2020-07-06 21:39] LABS: Troponin 5 2HR 12.32 ng/L (0-15)
[2020-07-06 21:40] LABS: Troponin 5 2HR Delta -0.68 ABS# (0-10)
--- NOTE | 2020-07-06 22:16 | PC.NURSE ---
Addendum entered by Kait Ken, LAURO 07/06/20 22:16: Physician was Dr. Thomas Original Note: This nurse got verbal ok to admit the patient to Med Surg with tele.
--- NOTE | 2020-07-06 22:18 | ECG_ITS ---
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 Measurements Intervals [place] Rate: 45 P: 61 [place]: 203 QRS: 20 QRSD: 87 T: 43 QT: 410 QTc: 357 Interpretive Statements SINUS BRADYCARDIA LOW QRS VOLTAGE IN PRECORDIAL LEADS [QRS DEFLECTION < 1.0 mV IN CHEST LEADS] Compared to ECG 07/06/2020 20:22:57 Low QRS voltage now present Atrial fibrillation no longer present Left-axis deviation no longer present Electronically Signed On 07-07-2020 19:19:17 CDT by Maximino Berkowitz M.D. [id number]
[2020-07-06 23:04] VITALS: BP 182/76; PULSE 74; RESP 18; O2SAT 96
[2020-07-06 23:08] VITALS: PULSE 47; RESP 18; O2SAT 96
[2020-07-06 23:17] LABS: Free T4 Free Thyroxine 1.17 ng/dL (0.82-1.77)
[2020-07-06 23:36] VITALS: BP 193/93; PULSE 48; RESP 21; TEMP 36.6; O2SAT 94
[2020-07-06] MEDS: enoxaparin 40 mg/0.4 mL Syringe SUBCUT (23:37)
[2020-07-07] VITALS (10 sets, daily range): BP systolic 147–181; BP diastolic 68–96; PULSE 47–88; RESP 16–18; TEMP 36.4–37.1; O2SAT 92–95
--- NOTE | 2020-07-07 02:18 | ECG_ITS ---
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 Measurements Intervals [place] Rate: 44 P: [place]: QRS: -1 QRSD: 90 T: 44 QT: 418 QTc: 360 Interpretive Statements SINUS BRADYCARDIA WITH 2ND DEGREE AV BLOCK, MOBITZ TYPE II Compared to ECG 07/06/2020 22:44:31 No significant changes Electronically Signed On 07-18-2020 17:48:06 CDT by Anna Soto M.D. [email or web address] [email or web address] anderson hospitalBio-[facility]/store/[id number]
[2020-07-07] MEDS: ezetimibe 10 mg Tablet PO (06:19)
[2020-07-07] MEDS: losartan 50 mg Tablet PO (06:19)
[2020-07-07] MEDS: aspirin 81 mg EC Tablet PO (06:20)
[2020-07-07] MEDS: magnesium oxide 400 mg tablet PO ×2 (08:38→17:41)
--- NOTE | 2020-07-07 14:51 | PM.PN ---
Subjective Subjective: Interval history: Denies lightheadedness currently. No chest pain or pressure. Discussed with him regarding bradycardia, possible heart block, discussed regarding TSH abnormality, what appears to be subclinical hypothyroidism. Discussed obtaining cardiology consultation. He is agreeable. Vitals/I&O/Wt Last Vital Signs Temp 97.6 F 07/07/20 11:07 Pulse 62 07/07/20 11:07 Resp 16 07/07/20 11:07 BP 147/74 07/07/20 11:07 Pulse Ox 93 07/07/20 11:07 07/06/20 07/07/20 07/07/20 22:59 06:59 14:59 Intake Total 100 / 100 720 / 720 Output Total 300 / 300 Balance -200 / -200 720 / 720 Weight last 48 hrs Weight 90.718 kg Physical Exam Const: COMMON NORMALS: no acute distress and patient oriented x3 HENMT: COMMON NORMALS: oropharynx normal Neck/C-Spine: COMMON NORMALS: no JVD Resp: COMMON NORMALS: normal respiratory effort and clear to auscultation bilaterally AUSCULTATION: clear to auscultation bilaterally Cardio: COMMON NORMALS: no JVD, regular rhythm, S1 normal heart sound present, S2 normal heart sound present and No murmurs present (Cardio) RATE: bradycardic RHYTHM: regular rhythm HEART SOUNDS: S1 normal heart sound present and S2 normal heart sound present GI: COMMON NORMALS: Normal to inspection, nondistended, normoactive bowel sounds present, Soft to palpation and non-tender PALPATION: Yes Soft to palpation Extremity: COMMON NORMALS: no joint enlargement and no pedal edema Neuro: COMMON NORMALS: patient oriented x3 and moves all extremities Skin: COMMON NORMALS: no rashes or lesions noted GENERAL SKIN EXAM: no rashes or lesions noted Data : 07/06/20 20:05 07/06/20 20:05 A&P Assessment and plan (1) Symptomatic bradycardia: Second-degree block Mobitz 2 indicated by machine, but to me looks could be sinus arrest. Appreciate cardiology consultation. Continue to monitor on telemetry. Orthostatic precautions. Follow TTE. Monitor with telemetry Checked orthostatic blood pressures. Not significantly orthostatic. Status: Acute Additional A&P Information History of atrial fibrillation: Not on any AV zachary blocking agent, patient refused anticoagulation in the past. Monitor. Essential hypertension: losartan 100 mg daily Cardiac diet DVT prophylaxis Lovenox Full code Attestations Medical Necessity Statement*: Continue hospitalization for assessment of management of symptomatic bradycardia, ending echocardiogram, cardiology assessment, consideration of need of pacemaker. Coding Level of Care Code Acute Staffing And Scheduling Coordinator for Anag Fwd Exam Comprehensive Diagnoses Symptomatic bradycardia R00.1
--- NOTE | 2020-07-07 16:28 | PC.NURSE ---
Called report to Sergio RN on CSU. Report given all questions answered. Patient transferred at this time.
--- NOTE | 2020-07-07 17:27 | P.CONIM_ITS ---
Providers/Reason For Consult Consulting Physican/Specialty*: Cardiology Reason for Consult*: Bradycardia Attending Physician: Lex Dill Primary Care Provider: Denis Nowak MD History of Present Illness History of Present Illness David Orozco is a 79 year old male past medical history significant for no significant cardiac problem other than hyperlipidemia has been admitted with recurrent dizziness and presyncope. On telemetry he was found to be bradycardic occasionally his heart rate dips down to 38 for 2 or 3 beats and then goes right away in the 50s to 60s. According to him for many months he has been feeling this ongoing dizziness and nobody was able to figure it out. He denies dizziness or presyncopal episode while sitting or laying down only when he tried to stand up or occasionally when he is walking he noticed lightheadedness. He denies palpitation pounding or racing of the heart. He is not on any zachary antoinette. TSH is also normal. He denies history of coronary artery disease and denies any chest pain. Twelve-lead EKG is suggestive of possible intermittent sinus arrest. No other signs of ischemia noted. Review of Systems General: Reports: 10 or more systems reviewed and unremarkable except in HPI and below Const: Reports: fatigue; Denies: fever(s), chills, body aches, change in appetite or diaphoresis Eyes: Denies: change in vision or blurry vision ENMT: Denies: throat pain, odynophagia or swelling of lips/tongue Card: Reports: irregular heart rhythm, lightheadedness and pre-syncope; Denies: chest pain, palpitations or swelling of feet/ankles Resp: Denies: dyspnea, productive cough, non-productive cough or wheezing GI: Denies: abdominal pain, nausea, vomiting or diarrhea : Denies: flank pain, difficulty urinating or dysuria Musc: Denies: neck pain, back pain or extremity pain Skin/Breast: Denies: rash, pruritus or erythema Neuro: Denies: headache(s), numbness in extremities or weakness in extremities Psych: Reports: sleeping more; Denies: anxiety Endo: Denies: polyuria, polydipsia or tired all the time Daniel/Lymph: Denies: easy bruising All/Imm: Denies: urticaria or acute wheezing Meds/Allergies Home Medications and Allergies Home Medications Medication Instructions Recorded Confirmed Last Taken Type aspirin 81 mg PO QAM 05/26/20 07/06/20 07/06/20 History vitamin E 1 cap PO QAM 05/26/20 07/06/20 07/06/20 History Zetia 10 mg PO QAM 07/06/20 07/06/20 07/06/20 History losartan 50 mg PO QAM 07/06/20 07/06/20 07/06/20 History Allergies Allergy/AdvReac Type Severity Reaction Status Date / Time atorvastatin [From Lipitor] Allergy Unknown Verified 07/06/20 20:59 cimetidine [From Tagamet] Allergy ALGY-Anaphy Verified 07/06/20 20:59 laxis pravastatin Allergy Unknown Verified 07/06/20 20:59 acetaminophen [From [place]] AdvReac ADR-Itching Verified 07/06/20 20:59 hydrocodone [From [place]] AdvReac ADR-Itching Verified 07/06/20 20:59 Current Medications Current Medications Generic Name Dose Route Start Last Admin Trade Name Freq PRN Reason Stop Dose Admin Aspirin 81 mg 07/07/20 06:00 07/07/20 06:20 Aspirin 81 Mg Ec Tablet PO 81 mg QAM MISTY Administration Ezetimibe 10 mg 07/07/20 06:00 07/07/20 06:19 Ezetimibe 10 Mg Tablet PO 10 mg QAM MISTY Administration Enoxaparin Sodium 40 mg 07/06/20 23:18 07/06/20 23:37 Enoxaparin 40 Mg/0.4 Ml Syringe SUBCUT 40 mg Q24H MISTY Administration Losartan Potassium 50 mg 07/07/20 06:00 07/07/20 06:19 Losartan 50 Mg Tablet PO 50 mg QAM MISTY Administration Magnesium Oxide 400 mg 07/07/20 09:00 07/07/20 08:38 Magnesium Oxide 400 Mg Tablet PO 400 mg BID MISTY Administration PFSH Acute PFSH: Medical History Atherosclerotic heart disease of [place] coronary artery without angina pectoris Benign essential HTN 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 Father Dementia Denies family history of Diabetes CAD (coronary artery disease) Clotting disorder Chronic kidney disease (CKD) Suicide Anesthesia complication Bleeding disorder Lung disease Cancer Stroke Social History Smoking and tobacco status: former smoker Alcohol intake: current Alcohol intake frequency: holidays/special occasions only Housing: House Marital status: / History of recent travel: No Dietary Habits: Current diet type/program: regular Vitals/I&O/Wt Last Vital Signs Temp 97.6 F 07/07/20 11:07 Pulse 55 L 07/07/20 14:00 Resp 16 07/07/20 11:07 BP 147/74 07/07/20 11:07 Pulse Ox 93 07/07/20 11:07 07/07/20 07/07/20 07/07/20 06:59 14:59 22:59 Intake Total 100 / 100 720 / 720 Output Total 300 / 300 Balance -200 / -200 720 / 720 Weight last 48 hrs Weight 200 lb Physical Exam Narrative: EXAM NARRATIVE: GENERAL: Patient is alert, awake and oriented x3. NECK: No jugular vein distension. HEENT: No cyanosis. No icterus. No pallor. HEART: Regular S1 and S2. No murmur, rub or gallop. LUNGS: Clear to auscultate bilaterally. ABDOMEN: Soft, nontender and nondistended. Positive bowel sounds. No guarding, rebound or tenderness. CENTRAL NERVOUS SYSTEM: Grossly nonfocal. EXTREMITIES: Lower extremities without edema bilaterally. 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 He never had dizzy or presyncopal episode while sitting or lying down. He denies any significant shortness of breath or extreme tiredness. His heart rate mostly stays in the 50s occasional dips down to high 30s. We therefore recommending event monitor and treadmill stress test for chronotropic competence. According to the patient he would like to go home and will be taken care of by his friend. He is going to flower buncher or picker event monitor on Friday. Advised in case of worsening of symptoms dizziness fainting he should call 911 and come to ER. We will follow him up in our clinic. Status: Acute (2) Benign essential HTN: Well-controlled. Status: Acute Coding Level of Care Code Acute Paper Counter for g Fwd Diagnoses Bradycardia R00.1 Benign essential HTN I10
--- NOTE | 2020-07-07 20:10 | PC.NURSE ---
Discharge instructions explained to patient with verbalized understanding from patient. All appointment follow-ups were faxed to [facility], Centralized Scheduling and Dr. Nowak's office. IV removed from right wrist with cath intact. Patient taken via wheelchair to family waiting outside. Vital signs stable. Patient has no complaints of pain or other needs at this time.
--- NOTE | 2020-07-07 22:23 | PM.DCS ---
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 However, he otherwise had remained asymptomatic. No significant pauses have been noted. Troponin, EKG work-up not significant for acute ischemia. He remained chest pain-free. Blood pressure was elevated on presentation, as high as 202/100, however, today mostly closer to goal in the 140s/60s-70s. Heart rates here noted variable, mostly in the 40s, up into the 80s. Not currently on any zachary blocking agents. Electrolytes were okay. No suggestion of acute infection/sepsis. TSH noted mildly elevated at 5.84, but with normal free T4, considered subclinical hypothyroidism, not likely contributing. Will benefit from follow-up in outpatient settings. He was assessed by cardiology. Machine read of one of the EKGs reported possible second-degree block Mobitz 2, however, consensus is this was not accurate per discussion with cardiology. He does require, however, additional monitoring and work-up as discussed with him and his daughter by myself and with him by cardiology. Cardiology recommends additional assessment by treadmill stress test, as well as cardiac monitoring to assess for any severe bradycardia during episodes of symptoms, prolonged pauses. Discussed with him that these can be set up on Friday. We discussed staying in the hospital due to risk of significant bradycardia/pauses which are not identified occurring while he is awaiting the additional assessment. He preferred to return home. Discussed with him consideration that if he is returning home to have somebody available around who may keep an eye on him and call for help in case he develops any severe symptoms. He remained otherwise asymptomatic while in the hospital, either at rest, and with ambulation. The additional work-up is requested for him and he knows to follow-up on this at earliest available time which is Friday. Due to elevated blood pressure he is encouraged to adhere to the blood pressure medication given to him before, losartan 50 mg. He is encouraged to monitor blood pressure at least twice daily, in addition to his heart rates, record values. In case blood pressures are elevated he is encouraged to take an extra dose of losartan or seek medical attention if they are very high. Please follow-up on all of the above with him in office. Physical Exam Narrative: EXAM NARRATIVE: Daughter at bedside. Const: COMMON NORMALS: no acute distress and patient oriented x3 OTHER: He reports he is feeling well. Denies any complaints. We have had extensive discussion of all the above. At 1 point during the visit heart rate came down to as low as 37 for several beats, however, he remained asymptomatic. Heart rate continues in the 50s. HENMT: COMMON NORMALS: oropharynx normal Neck/C-Spine: COMMON NORMALS: no JVD Resp: COMMON NORMALS: normal respiratory effort and clear to auscultation bilaterally AUSCULTATION: clear to auscultation bilaterally Cardio: COMMON NORMALS: no JVD, regular rhythm, S1 normal heart sound present, S2 normal heart sound present and No murmurs present (Cardio) RHYTHM: regular rhythm HEART SOUNDS: S1 normal heart sound present and S2 normal heart sound present GI: COMMON NORMALS: Normal to inspection, nondistended, normoactive bowel sounds present, Soft to palpation and non-tender PALPATION: Yes Soft to palpation Extremity: COMMON NORMALS: no joint enlargement and no pedal edema Neuro: COMMON NORMALS: patient oriented x3 and moves all extremities Skin: COMMON NORMALS: no rashes or lesions noted GENERAL SKIN EXAM: no rashes or lesions noted Discharge Data Data Completed and Pending: Completed Studies During Hospitalization Category Date Time Status XR chest 1V martha ble [id number] Stat Exams 07/06/20 20:15 Completed Pending at discharge Category Date Time Status CV echo complete* [id number] Routine Ultrasound 07/07/20 23:18 Taken Labs from last 24 hours 07/07/20 07/06/20 02:26 20:05 Troponin T Hi Sens 6Hr 15.10 H Troponin T Hi Sens 6Hr Delta 2.10 Free T4 1.17 Vitals: Last Vital Signs Temp 98.7 F 07/07/20 19:40 Pulse 51 L 07/07/20 19:40 Resp 17 07/07/20 19:40 BP 149/68 07/07/20 19:40 Pulse Ox 92 07/07/20 19:40 Discharge Plan Discharge Patient Disposition: Home Condition: Stable Prescriptions: Continued aspirin 81 mg Tablet,Delayed Release (Dr/Ec) 81 mg PO QAM RF: 0 vitamin E 1 cap PO QAM RF: 0 losartan 50 mg tablet 50 mg PO QAM RF: 0 Zetia 10 mg tablet 10 mg PO QAM RF: 0 Discharge Orders: Discharge Order (Routine); Ordered 07/07/20 Ordered By: Lex Dill Other Ambulatory Orders: Cardiac Stress Test Request (Routine) Timeframe: 2 Days Facility: [facility] - Location: Cardiac Diagnostic Laboratory Ordered By: Lex VALIENTE cardiac event monitor (Routine) Timeframe: 2 Days Facility: [facility] - Location: Cardiac Diagnostic Laboratory Ordered By: Lex Dill Referrals: Denis Nowak MD [Primary Care Provider] - 4-7 days (You will have an appointment with Dr Nowak in 4-[address] Nowak's office will call on Friday, July 10, 2020 with this appointment. If you do not hear from them by end of day on Friday, please call his office. ) Antoinette Choi MD [Physician] - 2 weeks (You will have an appointment with Dr Choi in 2 weeks. [facility] will call on Friday, July 10, 2020 with this appointment. If you do not hear from them by end of day on Friday, please call his office. ) Luz Harris FNP [Nurse Practitioner] - 1 week (You will have an appointment with Luz Harris in 1 week. [facility] will call on Friday, July 10, 2020 with this appointment. If you do not hear from them by end of day on Friday, please call his office.) Discharge Diet: Cardiac Discharge Activity: Increase activity as tolerated and Limit activity as instructed Patient Instructions: Losartan (By mouth), Bradycardia (GEN), Hypertension (GEN) Activity Restrictions/Additional Instructions: Please monitor your heart rate and blood pressures at home. Please follow-up on Friday to be set up for event monitor, as well as for stress test to closer assess for slow heart rate or pauses. Until that time please have someone stay with you to make sure you do not develop any concerning symptoms. If you do, please call 911. Please avoid heights, avoid driving or operating heavy machinery. Please take the blood pressure medication prescribed by your heart doctor, losartan 50 mg every morning. Please check your blood pressure twice daily, if on recheck of the blood pressure in the afternoon/evening it is still elevated, above 170 top number or above 100 bottom number, please take additional dose of the same medication. If your blood pressure is elevated above 190 top number or above 110 bottom number, please call the cardiology office, or if you are having symptoms like chest pain, dizziness, shortness of breath, or others, call 911. Discharge Attestations Time Spent in Discharge Care*: greater than 30 min Quality Metrics Clinical Quality Measures During this hospital stay, did patient experience: None Coding Level of Care Code Acute Chg FW DC note Diagnoses Bradycardia R00.1 Benign essential HTN I10
--- NOTE | 2020-07-07 23:18 | USCV_ITS ---
David Orozco Age: 79 Gender: M : 1940 Exam Date: 07/07/2020 15:28 Ordering Phys: Antoinette Thomas MD Technologist: Exam Location: [facility] [place] Indication: CHEST PAIN BP: 134 / 75 HR: 64 Rhythm: Sinus Technical Quality: Adequate MEASUREMENTS (Male / Female) Normal Values 2D ECHO LV Diastolic Diameter PLAX 3.7 cm 4.2 - 5.9 / 3.9 - 5.3 cm LV Systolic Diameter PLAX 2.5 cm IVS Diastolic Thickness 1.2 cm 0.6 - 1.0 / 0.6 - 0.9 cm IVS Systolic Thickness 1.6 cm LVPW Diastolic Thickness 0.9 cm 0.6 - 1.0 / 0.6 - 0.9 cm LVPW Systolic Thickness 1.3 cm LVOT Diameter 2.0 cm LV Ejection Fraction 2D Teich 62.1 % LV Ejection Fraction MOD 2C 45.5 % LV Ejection Fraction 2C AL 45.9 % LA Diameter 3.9 cm LA Width 4.2 cm LA Height 5.3 cm RA Width 4.3 cm RA Height 4.9 cm M-MODE LV Diastolic Diameter MM 4.9 cm 4.2 - 5.9 / 3.9 - 5.3 cm LV Systolic Diameter MM 2.6 cm LV Ejection Fraction MM Teich 78.7 % IVS Diastolic Thickness MM 1.1 cm 0.6 - 1.0 / 0.6 - 0.9 cm IVS Systolic Thickness MM 1.2 cm LVPW Diastolic Thickness MM 1.1 cm 0.6 - 1.0 / 0.6 - 0.9 cm LVPW Systolic Thickness MM 1.7 cm RV Diastolic Diameter MM 2.2 cm Aortic Annulus Diameter 3.4 cm LA Ao Ratio MM 1.1 MV E Point Septal Separation 0.8 cm DOPPLER AV Peak Velocity 139.0 cm/s LVOT Peak Velocity 79.0 cm/s AV Area Cont Eq vti 2.7 cm squared AV Area Cont Eq pk 1.8 cm squared MV Area PHT 3.1 cm squared Mitral E to A Ratio 0.9 MV E' Velocity 39.5 cm/s Mitral E to MV E' Ratio 7.6 Mitral E to LV E' Lateral Ratio 8.0 Mitral E to LV E' Septal Ratio 7.4 TR Peak Velocity 285.0 cm/s TR Peak Gradient 32.5 mmHg TV Peak E Velocity 121.0 cm/s Right Atrial Pressure 3.0 mmHg Pulmonary Artery Systolic Pressu 35.5 mmHg FINDINGS Left Ventricle Normal left ventricular cavity size. Normal left ventricular systolic function. No regional wall motion abnormalities. Left ventricular ejection fraction is estimated at 70 %. Right Ventricle The right ventricle is normal in size and function. Right Atrium The right atrium is normal in size. Left Atrium The left atrium is normal in size. Mitral Valve Structurally normal mitral valve without significant stenosis or prolapse. There is no mitral regurgitation. Aortic Valve Moderate aortic valve calcification. Aortic valve sclerosis, mean gradient 2.9 mmHg, DIANA 2.7 cm squared. Mild aortic valve regurgitation. Tricuspid Valve Structurally normal tricuspid valve without significant stenosis or regurgitation. Pulmonary artery systolic pressure is normal. Pulmonic Valve Structurally normal pulmonic valve without significant stenosis. There is no pulmonic regurgitation. Pericardium Normal pericardium without effusion. Aorta Normal ascending aorta dimension. CONCLUSIONS 1-Normal left ventricular cavity size. Normal left ventricular systolic function. No regional wall motion abnormalities. Left ventricular ejection fraction is estimated at 70 %. 2-Moderate aortic valve calcification. Aortic valve sclerosis, mean gradient 2.9 mmHg, DIANA 2.7 cm squared. Mild aortic valve regurgitation. 3-There is no pericardial effusion. 4-Pulmonary artery systolic pressure is within normal limits. 5-Right atrial pressure is around 5 mm of mercury. 6-When compared to the prior echocardiogram dated July 05, 2016 there appeared to be mild aortic valve regurgitation Antoinette Choi MD (Electronically Signed) Final Date: 18 Jul 2020 22:38 S
== END 2020-07-07 20:08 | disposition home or self-care (01) ==
LOC: ER 20:29 → MEDSURG 07-07 08:04 → CSU 07-07 16:22
PROVIDERS: Admitting Provider Internal Medicine; Emergency Provider Family Medicine; PCP Internal Medicine; Visit Provider Internal Medicine
DX: R00.1 Bradycardia, unspecified (principal); I10 Essential (primary) hypertension; Z86.79 Personal history of other diseases of the circulatory system; E78.5 Hyperlipidemia, unspecified; K21.9 Gastro-esophageal reflux disease without esophagitis; M79.7 Fibromyalgia; Z87.891 Personal history of nicotine dependence
CPT/HCPCS: 36415; 71045; 80053; 81003; 83735; 83880; 84439; 84443; 84484; 85025; 85610; 93005; 93306; 96372; 99285; G0378; J1650

== ENCOUNTER 2020-07-13 06:48 | Outpatient (CLI) | payer MEDICARE, MEDICAID, SELFPAY ==
[2020-07-13 06:53] VITALS: BMI 31.3
--- NOTE | 2020-07-13 07:04 | ECG_ITS ---
[facility] Test Date: 2020-07-13 Pat Name: David Orozco Department: Room: Gender: Male Manager Nc: : 1940 Requested By: Lex Dill Order Number: [id number] Jessica MD: VIRGINIA FORTE Interpretive Statements NAME OF STUDY: TREADMILL STRESS TEST INDICATION: afib, EXERCISE DATA: The patient was exercised by Braden protocol. Baseline heart rate was 68 beats per minute. Baseline blood pressure was 175/94 millimeters of mercury. Target heart rate was 139 beats per minute. Maximum heart rate achieved was 147, which was 105 % of the target heart rate. Maximum blood pressure was 263/101 millimeters of mercury. Total exercise time was 40 minutes 36 seconds. Maximum METs achieved was 7.0, maximum VO2 was 24.5. The reason for ending the test was maximum effort achieved. The patient complained of shortness of during the stress test, which then resolved at the end of the test. ELECTROCARDIOGRAM: BASELINE: Showed sinus rhythm, normal axis, no significant ST-T changes at the baseline noted. EXERCISE: At the peak exercise level, no significant ST-T changes suggestive of ischemia noted. RECOVERY: During the recovery period, heart rate dropped appropriately. No significant ST-T changes in the recovery suggestive of ischemia noted. CONCLUSION: 1. Exercise capacity poor. 2. Heart rate response was appropriate. 3. Blood pressure response was hypertensive. 4. Symptoms not suggestive of ischemia. 5. Electrocardiogram portion of the stress test was not suggestive of ischemia. 6. Nuclear scan will be documented separately. Electronically Signed On 07-25-2020 19:10:21 CDT by VIRGINIA FORTE [id number]
[2020-07-13 07:36] VITALS: BP 166/74; PULSE 85
== END 2020-07-13 06:49 | disposition home or self-care (01) ==
LOC: CDL 06:50
PROVIDERS: PCP Internal Medicine; Visit Provider Internal Medicine
DX: I48.91 Unspecified atrial fibrillation (principal)
CPT/HCPCS: 93017

== ENCOUNTER 2020-07-21 06:40 | Outpatient (CLI) | payer MEDICARE, MEDICAID, SELFPAY ==
--- NOTE | 2020-07-21 07:28 | USCV_ITS ---
David Orozco Age: 79 Gender: M : 1940 Exam Date: 07/21/2020 07:32 Ordering Phys: Kavon Cordoba MD ([email or web address]) Technologist: Bijal Rocha Exam Location: [facility] [place] Indication: CHEST PAIN AND SYNCOPE AFIB BP: 150 / 80 HR: 54 Rhythm: Sinus Technical Quality: Adequate MEASUREMENTS (Male / Female) Normal Values 2D ECHO LV Diastolic Diameter PLAX 4.3 cm 4.2 - 5.9 / 3.9 - 5.3 cm LV Systolic Diameter PLAX 2.3 cm LV Chamber Size 3.6 cm IVS Diastolic Thickness 1.1 cm 0.6 - 1.0 / 0.6 - 0.9 cm IVS Systolic Thickness 1.9 cm LVPW Diastolic Thickness 1.2 cm 0.6 - 1.0 / 0.6 - 0.9 cm LVPW Systolic Thickness 1.7 cm RV Chamber Size 2.6 cm LVOT Diameter 2.0 cm LV Ejection Fraction 2D Teich 78.6 % LV Ejection Fraction MOD 2C 74.0 % LV Ejection Fraction 2C AL 75.9 % LA Diameter 3.5 cm LA Width 3.3 cm LA Height 3.9 cm RA Width 3.4 cm RA Height 5.2 cm Aorta at Sinotubular Diameter 3.3 cm M-MODE LV Diastolic Diameter MM 4.7 cm 4.2 - 5.9 / 3.9 - 5.3 cm LV Systolic Diameter MM 2.5 cm LV Ejection Fraction MM Teich 79.0 % IVS Diastolic Thickness MM 1.2 cm 0.6 - 1.0 / 0.6 - 0.9 cm IVS Systolic Thickness MM 1.8 cm LVPW Diastolic Thickness MM 1.1 cm 0.6 - 1.0 / 0.6 - 0.9 cm LVPW Systolic Thickness MM 1.7 cm RV Diastolic Diameter MM 1.8 cm Aortic Annulus Diameter 3.3 cm LA Ao Ratio MM 1.2 MV E Point Septal Separation 0.6 cm DOPPLER AV Peak Velocity 132.0 cm/s LVOT Peak Velocity 109.0 cm/s AV Area Cont Eq vti 2.3 cm squared AV Area Cont Eq pk 2.7 cm squared MV Area PHT 2.5 cm squared Mitral E to A Ratio 1.1 MV E' Velocity 47.5 cm/s Mitral E to MV E' Ratio 7.1 Mitral E to LV E' Lateral Ratio 5.4 Mitral E to LV E' Septal Ratio 10.3 TR Peak Velocity 220.2 cm/s TR Peak Gradient 19.4 mmHg TR Mean Velocity 170.9 cm/s TR Mean Gradient 12.9 mmHg TR Velocity Time Integral 64.1 cm TV Peak E Velocity 72.0 cm/s Right Atrial Pressure 3.0 mmHg Pulmonary Artery Systolic Pressu 22.4 mmHg PV Peak Velocity 50.0 cm/s RV Acceleration Time 0.1 s RV Ejection Time 0.4 s RV AcT/ET 0.3 FINDINGS Left Ventricle Normal left ventricular size and systolic function, EF 71 %. No regional wall motion abnormalities. Right Ventricle The right ventricle is normal in size and function. Right Atrium The right atrium is normal in size. Left Atrium The left atrium is normal in size. Mitral Valve Mild mitral valve regurgitation. Aortic Valve Mild aortic valve regurgitation. Thickened aortic valve. Tricuspid Valve Trace tricuspid valve regurgitation. Pulmonic Valve Pulmonic valve not well visualized. Pericardium Normal pericardium without effusion. Aorta Normal ascending aorta dimension. CONCLUSIONS Normal left ventricular size and systolic function, EF 71 %. No regional wall motion abnormalities. Thickened aortic valve. Mild aortic and mitral regurgitation with trace of tricuspid regurgitation There is no pericardial effusion. There are no intracardiac masses. Estimated pulmonary artery peak systolic pressure of 22 mmHg Compared to the study from 07/07/2020, there may not be a significant change Dr Kavon Cordoba MD [facility] (Electronically Signed) Final Date: 21 Jul 2020 18:19 S
== END 2020-07-21 06:41 | disposition home or self-care (01) ==
PROVIDERS: PCP Internal Medicine; Visit Provider Internal Medicine
DX: I48.91 Unspecified atrial fibrillation (principal); R55 Syncope and collapse; R07.9 Chest pain, unspecified; I08.0 Rheumatic disorders of both mitral and aortic valves
CPT/HCPCS: 93306

== ENCOUNTER 2020-09-29 12:16 | Emergency (ER) | payer MEDICARE, MEDICAID, SELFPAY ==
[2020-09-29 12:30] VITALS: BP 168/84; PULSE 69; RESP 16; TEMP 36.7; O2SAT 97; BMI 31.3
--- NOTE | 2020-09-29 12:38 | XR_ITS ---
WS: [id number] Portable AP upright chest, 09/29/2020 Clinical Data: dyspnea/cough Comparison: Portable chest, 07/06/2020. Findings: No nodules, masses or effusions are seen. The heart is slightly enlarged. The pulmonary vas cularity is not increased. No pneumonia or pneumothorax is seen. The aortic arch and descending aorta show tortuosity. There are monitor leads on the chest wall. There are 2 orthopedic anchors in the ri ght humeral head. XR/XR chest 1V portable [id number] Impression: Atherosclerosis and minimal cardiomegaly.
--- NOTE | 2020-09-29 12:38 | ECG_ITS ---
[facility] Test Date: 2020-09-29 Pat Name: David Orozco Department: Room: Gender: Male Roll Coverer: : 1940 Requested By: Glynn Stephen Order Number: [id number] Jessica MD: Kavon Cordoba M.D. Measurements Intervals [place] Rate: 75 P: HI: QRS: -3 QRSD: 84 T: 40 QT: 380 QTc: 427 Interpretive Statements Multifocal atrial rhythm with a short run of PAT LOW QRS VOLTAGE IN PRECORDIAL LEADS [QRS DEFLECTION < 1.0 mV IN CHEST LEADS] ABNORMAL RHYTHM ECG Compared to ECG 07/07/2020 04:09:41 Low QRS voltage now present Sinus bradycardia no longer present Electronically Signed On 09-29-2020 14:56:18 CDT by Kavon Cordoba M.D. [id number]
--- NOTE | 2020-09-29 12:39 | ED_ITS ---
HPI - Chest Pain General: Chief Complaint: Chest Pain Stated Complaint: CP Time Seen by Provider: 09/29/20 12:37 History of Present Illness: HPI narrative: 79-year-old male comes in complaining of chest pain.He has had intermittently for the last day. He has it at various times when he is resting for the most part today he had it while he was playing poker at a shop. He was not drinking anything he had just eaten. He denies any fever sweats chills cough or shortness of breath. He did have a stress test in July of this year that was negative as a sestamibi Lexiscan however I do not see any follow-up with cardiology after that. He is not currently having any chest pain now. He does take aspirin daily he is on Zetia and losartan as well. MD complaint: chest pain Pertinent past history: coronary artery disease Onset (ago): hour(s) Timing of current episode: episodic and stable Prior episodes: Yes Onset: during rest Pain location: left chest Pain radiation: none Severity: mild Quality: tightness and heaviness Relieving factors: nothing Exacerbating factors: nothing Associated symptoms: Deny abdominal pain, diaphoresis, dyspnea, fever(s), leg edema, nausea, palpitations, sense of impending doom, syncope or vomiting Treatment prior to arrival: none Review of Systems Const: Denies: fever(s) or diaphoresis ENMT: Denies: throat pain, ear or mastoid pain, nasal discharge or nasal congestion Card: Denies: palpitations or syncope Resp: Denies: dyspnea GI: Denies: abdominal pain, nausea or vomiting : Denies: flank pain, dysuria, urinary frequency or urinary urgency Skin/Breast: Denies: rash or pruritus PFSH ED PFSH: Medical History Atherosclerotic heart disease of [place] coronary artery without angina pectoris Benign essential HTN 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 Father Dementia Denies family history of Diabetes CAD (coronary artery disease) Clotting disorder Chronic kidney disease (CKD) Suicide Anesthesia complication Bleeding disorder Lung disease Cancer Stroke Social History Smoking and tobacco status: former smoker Alcohol intake: current Alcohol intake frequency: holidays/special occasions only Housing: House Marital status: / History of recent travel: No Physical Exam Const: COMMON NORMALS: no acute distress GENERAL APPEARANCE: cooperative and comfortable ORIENTATION/CONSCIOUSNESS: Yes awake, Yes oriented to person, Yes oriented to place and Yes oriented to time Neck/C-Spine: COMMON NORMALS: no JVD Resp: COMMON NORMALS: normal respiratory effort, No retractions, No use of accessory muscles and clear to auscultation bilaterally AUSCULTATION: clear to auscultation bilaterally Cardio: COMMON NORMALS: no JVD, regular rate, regular rhythm and No murmurs present (Cardio) RATE: regular rate RHYTHM: regular rhythm GI: COMMON NORMALS: Soft to palpation and No hepatosplenomegaly present AUSCULTATION: Yes normoactive bowel sounds PALPATION: Yes Soft to palpation, No Tenderness to palpation present (GI), No Guarding due to palpation present (GI) and Yes No hepatosplenomegaly present Extremity: COMMON NORMALS: normal to inspection, capillary refill normal, no clubbing, cyanosis or edema, no calf tenderness and no pedal edema Neuro: SENSORIUM/ORIENTATION: Yes oriented to person, Yes oriented to place and Yes oriented to time Skin: COMMON NORMALS: no rashes or lesions noted GENERAL SKIN EXAM: no rashes or lesions noted Course Vital Signs: Vital signs: Vital Signs Temperature 98.1 F 09/29/20 12:30 Pulse Rate 65 09/29/20 17:22 Respiratory Rate 16 09/29/20 17:22 Blood Pressure 159/89 09/29/20 17:22 Pulse Oximetry 98 09/29/20 17:22 MDM - Chest Pain MDM Narrative: Medical decision making narrative: Troponin is negative EKG negative. 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 Lab Data: Labs: Lab Results 09/29/20 09/29/20 09/29/20 Range/Units 13:23 13:23 13:23 WBC 8.1 (4.0-10.0) 10^3/ uL RBC 4.25 (4.1-5.3) 10^6/u L Hgb 13.9 (11.7-16.6) g/dL Hct 41.4 L (42.0-52.0) % MCV 97.4 H (80-94) fL MCH 32.7 (28.0-34.0) pg MCHC 33.6 (30.0-36.0) g/dL RDW 13.0 (12.1-15.1) % Plt Count 200 (130-400) 10^3/c mm MPV 9.9 (7.4-10.4) fL Neut % (Auto) 64.6 % Lymph % (Auto) 20.0 % [place] % (Auto) 12.6 % Eos % (Auto) 2.1 % Baso % (Auto) 0.5 % Neut # (Auto) 5.21 (1.8-7.7) 10^3/u L Lymph # (Auto) 1.6 (0.8-4.8) 10^3/u L [place] # (Auto) 1.0 H (0.2-0.9) 10^3/u L Eos # (Auto) 0.2 (0.0-0.8) 10^3/u L Baso # (Auto) 0.0 (0.0-0.1) 10^3/u L Nucleated RBC % (a uto) 0 % Nucleated RBCs # 0.0 /100WBC Sodium 136 (136-145) mmol/L Potassium 4.2 (3.5-5.1) mmol/L Chloride 102 (98-107) mmol/L Carbon Dioxide 24 (22-29) mmol/L Anion Gap 14.2 (5-19) BUN 11 (8-23) mg/dL Creatinine 1.1 (0.7-1.2) mg/dL GFR Calculation Not Reportable Glucose 101 (65-115) mg/dL Calculated Osmolal ity 282 L (285-295) mOsm/k g Calcium 8.4 L (8.5-10.5) mg/dL Total Bilirubin 0.8 (0.15-1.2) mg/dL AST 19 (0-40) U/L ALT 11 (0-41) U/L Alkaline Phosphata se 85 (40-130) IU/L Troponin T Baselin e 9 (0-15) ng/L Troponin T 120 Min [place] (0-15) ng/L Delta Troponin T (0-10) ABS# Total Protein 6.7 (6.6-8.7) g/dL Albumin 3.9 (3.5-5.2) g/dL Globulin 2.8 (1.3-4.6) g/dL Urine Color (Yellow) Urine Appearance (CLEAR) Urine pH (5-7) Ur Specific Gravit y (1.005-1.030) Urine Protein (Negative) Urine Glucose (UA) (Normal) Urine Ketones (Negative) Urine Blood (Negative) Urine Nitrate (Negative) Urine Bilirubin (Negative) Urine Urobilinogen (Negative) mg/dL Ur Leukocyte Nilsa ase (Negative) 09/29/20 09/29/20 Range/Units 15:21 15:34 WBC (4.0-10.0) 10^3/ uL RBC (4.1-5.3) 10^6/u L Hgb (11.7-16.6) g/dL Hct (42.0-52.0) % MCV (80-94) fL MCH (28.0-34.0) pg MCHC (30.0-36.0) g/dL RDW (12.1-15.1) % Plt Count (130-400) 10^3/c mm MPV (7.4-10.4) fL Neut % (Auto) % Lymph % (Auto) % [place] % (Auto) % Eos % (Auto) % Baso % (Auto) % Neut # (Auto) (1.8-7.7) 10^3/u L Lymph # (Auto) (0.8-4.8) 10^3/u L [place] # (Auto) (0.2-0.9) 10^3/u L Eos # (Auto) (0.0-0.8) 10^3/u L Baso # (Auto) (0.0-0.1) 10^3/u L Nucleated RBC % (a uto) % Nucleated RBCs # /100WBC Sodium (136-145) mmol/L Potassium (3.5-5.1) mmol/L Chloride (98-107) mmol/L Carbon Dioxide (22-29) mmol/L Anion Gap (5-19) BUN (8-23) mg/dL Creatinine (0.7-1.2) mg/dL GFR Calculation Glucose (65-115) mg/dL Calculated Osmolal ity (285-295) mOsm/k g Calcium (8.5-10.5) mg/dL Total Bilirubin (0.15-1.2) mg/dL AST (0-40) U/L ALT (0-41) U/L Alkaline Phosphata se (40-130) IU/L Troponin T Baselin e (0-15) ng/L Troponin T 120 Min [place] 10.12 (0-15) ng/L Delta Troponin T 1.12 (0-10) ABS# Total Protein (6.6-8.7) g/dL Albumin (3.5-5.2) g/dL Globulin (1.3-4.6) g/dL Urine Color Yellow (Yellow) Urine Appearance Clear (CLEAR) Urine pH 6.5 (5-7) Ur Specific Gravit y 1.010 (1.005-1.030) Urine Protein Neg (Negative) Urine Glucose (UA) Norm (Normal) Urine Ketones Negative (Negative) Urine Blood Neg (Negative) Urine Nitrate Negative (Negative) Urine Bilirubin Neg (Negative) Urine Urobilinogen Norm (Negative) mg/dL Ur Leukocyte Nilsa ase Negative (Negative) Discharge Plan Discharge Patient Disposition: Home Clinical Impression: Atypical chest pain, Atherosclerotic heart disease of [place] coronary artery without angina pectoris Condition: Stable Prescriptions: New isosorbide mononitrate 30 mg tablet extended release 24 hr 30 mg PO DAILY Qty: 30 RF: 0 No Action aspirin 81 mg Tablet,Delayed Release (Dr/Ec) 81 mg PO QAM RF: 0 vitamin E 1 cap PO QAM RF: 0 losartan 50 mg tablet 50 mg PO QAM RF: 0 ezetimibe [Zetia] 10 mg tablet 10 mg PO QAM RF: 0 aspirin 325 mg Tablet 650 mg PO PRN RF: 0 Discharge Orders: Discharge ED (Routine); Ordered 09/29/20 Ordered By: Glynn David Referrals: Denis Nowak MD [Primary Care Provider] - Patient Instructions: Opioid Safety Activity Restrictions/Additional Instructions: Follow-up with cardiology return to the emergency room if you have further discomfort. Coding Level of Care Code ED Fish Machine Feeder for Chg Fwd Exam Detailed
[2020-09-29 13:20] VITALS: BP 155/70; PULSE 67; RESP 20; O2SAT 97
[2020-09-29 13:27] LABS: Basophils % 0.5 %; Eosinophils # 0.2 10^3/uL (0.0-0.8); Eosinophils % 2.1 %; Hematocrit 41.4 % (42.0-52.0); Hemoglobin 13.9 g/dL (11.7-16.6); Lymphocytes # 1.6 10^3/uL (0.8-4.8); Mean Corpuscular HGB Conc 33.6 g/dL (30.0-36.0); Mean Corpuscular Hemoglobin 32.7 pg (28.0-34.0); Mean Corpuscular Volume 97.4 fL (80-94); Mean Platelet Volume 9.9 fL (7.4-10.4); Monocytes % 12.6 %; Neutrophils # 5.21 10^3/uL (1.8-7.7); Neutrophils % 64.6 %; Nucleated Red Blood Cells % 0 %; Platelet Count 200 10^3/cmm (130-400); Red Blood Count 4.25 10^6/uL (4.1-5.3); White Blood Count 8.1 10^3/uL (4.0-10.0)
[2020-09-29 13:49] LABS: Troponin(5th) Baseline 9 ng/L (0-15)
[2020-09-29 13:50] LABS: Alanine Aminotransferase 11 U/L (0-41); Albumin Level 3.9 g/dL (3.5-5.2); Alkaline Phosphatase 85 IU/L (40-130); Aspartate Amino Transferase 19 U/L (0-40); Blood Urea Nitrogen 11 mg/dL (8-23); Calcium 8.4 mg/dL (8.5-10.5); Carbon Dioxide 24 mmol/L (22-29); Chloride 102 mmol/L (98-107); Globulin 2.8 g/dL (1.3-4.6); Glucose 101 mg/dL (65-115); Osmolality Calculated 282 mOsm/kg (285-295); Sodium 136 mmol/L (136-145); Total Bilirubin 0.8 mg/dL (0.15-1.2); Total Protein 6.7 g/dL (6.6-8.7)
[2020-09-29 13:55] LABS: Anion Gap 14.2 (5-19); Potassium 4.2 mmol/L (3.5-5.1)
--- NOTE | 2020-09-29 14:38 | ECG_ITS ---
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 Measurements Intervals [place] Rate: 59 P: 67 [place]: 194 QRS: 6 QRSD: 87 T: 30 QT: 408 QTc: 406 Interpretive Statements SINUS BRADYCARDIA Compared to ECG 09/29/2020 12:32:22 No significant changes Electronically Signed On 10-02-2020 22:36:16 CDT by Anna Soto M.D. [id number]
[2020-09-29 15:17] VITALS: BP 160/83; PULSE 63; RESP 20; O2SAT 97
[2020-09-29 15:30] LABS: Add Urine Microscopic? NO; Charge for UA Resulting for Rev
[2020-09-29 15:38] LABS: Bilirubin Urine Neg (Negative); Blood Urine Neg (Negative); Glucose Urine UA Norm (Normal); Ketones Urine Negative (Negative); Leukocyte Esterase Urine Negative (Negative); Nitrate Urine Negative (Negative); Protein Urine Neg (Negative); Urine Appearance Clear (CLEAR); Urine Color Yellow (Yellow); Urobilinogen Urine Norm (Negative); pH Urine 6.5 (5-7)
[2020-09-29 16:03] LABS: Troponin 5 2HR 10.12 ng/L (0-15); Troponin 5 2HR Delta 1.12 ABS# (0-10)
[2020-09-29 16:42] VITALS: BP 165/79; PULSE 62; RESP 18; O2SAT 97
[2020-09-29 17:22] VITALS: BP 159/89; PULSE 65; RESP 16; O2SAT 98
--- NOTE | 2020-10-02 11:35 | DCPLANNER ---
landscape account manager had message to schedule a follow up appointment for patient with [facility]. landscape account manager called [facility], spoke with [place], gave clinic patients information. A follow up appointment was scheduled for Friday, October 04, 2020 at 2:[address] Cordoba. landscape account manager called patients daughter and gave her the appointment information.
== END 2020-09-29 17:33 | disposition home or self-care (01) ==
PROVIDERS: Emergency Provider Family Medicine; PCP Internal Medicine
DX: R07.89 Other chest pain (principal); I25.10 Atherosclerotic heart disease of native coronary artery without angina pectoris; I10 Essential (primary) hypertension; E78.5 Hyperlipidemia, unspecified; Z87.891 Personal history of nicotine dependence; Z79.82 Long term (current) use of aspirin
CPT/HCPCS: 71045; 80053; 81003; 84484; 85025; 93005; 99284

== ENCOUNTER 2020-10-17 19:28 | Emergency (ER) | payer MEDICARE, MEDICAID, SELFPAY ==
[2020-10-17 19:38] VITALS: BP 149/81; PULSE 83; RESP 18; TEMP 36.2; O2SAT 97; BMI 30.4
--- NOTE | 2020-10-17 20:05 | ECG_ITS ---
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 Measurements Intervals [place] Rate: 83 P: 28 [place]: 167 QRS: -3 QRSD: 87 T: 39 QT: 343 QTc: 405 Interpretive Statements SINUS RHYTHM LOW QRS VOLTAGE IN PRECORDIAL LEADS [QRS DEFLECTION < 1.0 mV IN CHEST LEADS] Compared to ECG 09/29/2020 16:29:29 Low QRS voltage now present Sinus bradycardia no longer present Electronically Signed On 10-19-2020 7:41:32 CDT by Anna Soto M.D. [id number]
--- NOTE | 2020-10-26 10:59 | DCPLANNER ---
Patient had a follow up appointment scheduled for 10.04.20 with [facility] - patient did attend appointment.
== END 2020-10-17 21:02 ==
PROVIDERS: PCP Internal Medicine
DX: R06.02 Shortness of breath (principal); M54.6 Pain in thoracic spine; Z53.21 Procedure and treatment not carried out due to patient leaving prior to being seen by health care provider
CPT/HCPCS: 93005

== ENCOUNTER 2021-02-15 07:42 | Emergency (ER) | payer MEDICARE, MEDICAID, SELFPAY ==
[2021-02-15] VITALS (7 sets, daily range): BP systolic 120–171; BP diastolic 71–101; PULSE 70–97; RESP 12–22; TEMP 36.8; O2SAT 93–96; BMI 30.4
--- NOTE | 2021-02-15 07:44 | XR_ITS ---
WS: [id number] Exam: XR chest 1V portable [id number] Date/Time of Exam: 02/15/2021 7:44 AM Reason For Exam: chest pain Comparison 09/29/2020. Findings: The lungs are clear and fully expanded. Costophrenic angles are sharp. No infiltrates. Bronchovascula r relief appears normal. Cardiac silhouette is unremarkable. Bony elements are intact. XR/XR chest 1V portable [id number] IMPRESSION: Unremarkable chest radiograph.
--- NOTE | 2021-02-15 07:44 | ED_ITS ---
HPI - Chest Pain General: Chief Complaint: Back Pain/Injury Stated Complaint: BACK PAIN/ SOB Time Seen by Provider: 02/15/21 07:43 History of Present Illness: HPI narrative: 80-year-old with history of CAD presents due to shortness of breath and pain radiating from between his shoulder blades to his chest. Denies any cough fever. Denies nausea or vomiting. Denies any lower back pain or neck pain. Denies any focal numbness or tingling or urinary or fecal incontinence or retention. Pain is not exertional or pleuritic. Given full-strength aspirin by EMS. Patient also was found to be quite hypertensive at 170/100. Review of Systems Narrative: - CONSTITUTIONAL: Denies weight loss, fever and chills. - HEENT: Denies changes in vision and hearing. - RESPIRATORY: As above - CV: As above - GI: Denies abdominal pain, nausea, vomiting and diarrhea. - : Denies dysuria and urinary frequency. - MSK: Denies myalgia and joint pain. - SKIN: Denies rash and pruritus. - NEUROLOGICAL: Denies headache, weakness, numbness and syncope. - PSYCHIATRIC: Denies suicidal ideation [facility] ED PFSH: Medical History Atherosclerotic heart disease of [place] coronary artery without angina pectoris Benign essential HTN 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 Father Dementia Denies family history of Diabetes CAD (coronary artery disease) Clotting disorder Chronic kidney disease (CKD) Suicide Anesthesia complication Bleeding disorder Lung disease Cancer Stroke Social History Smoking and tobacco status: former smoker Alcohol intake: current Alcohol intake frequency: holidays/special occasions only Housing: House Marital status: / History of recent travel: No Physical Exam Narrative: EXAM NARRATIVE: - GENERAL: Alert and oriented x 3. No acute distress. Well-nourished. - EYES: EOMI. Anicteric. - HENT: Atraumatic, no C-spine tenderness. Moist mucous membranes. No scleral icterus. No cervical lymphadenopathy. - LUNGS: Clear to auscultation bilaterally. No accessory muscle use. Equal lung sounds bilaterally. No respiratory distress. - CARDIOVASCULAR: Regular rate and rhythm. No murmur. No JVD. - ABDOMEN: Soft, non-tender and non-distended. Negative CVA tenderness bilaterally, no rebound or guarding, negative Mandel sign. No palpable masses. - EXTREMITIES: No edema. Non-tender. - SKIN: No rashes or lesions. Warm. - NEUROLOGIC: No meningismus or focal neurological deficits. CN II-XII grossly intact. - PSYCHIATRIC: Cooperative. Appropriate mood and affect. Course Vital Signs: Vital signs: Vital Signs Temperature 98.2 F 02/15/21 07:53 Pulse Rate 70 02/15/21 12:05 Respiratory Rate 12 02/15/21 12:05 Blood Pressure 133/77 02/15/21 12:05 Pulse Oximetry 96 02/15/21 12:05 MDM - Chest Pain MDM Narrative: Medical decision making narrative: 80-year-old male presents due to back pain radiating to her chest as well as nausea dyspnea on exertion. Denies any leonarda chest pain however. CT scan does not reveal any sign of PE or dissection. There is however Covid pneumonia. No sign of focal bacterial pneumonia. He saturating well on room air is hemodynamically stable afebrile nontoxic-appearing. Initially hypertensive but improved labetalol. EKG and 2 troponins do not reveal any sign of acute ischemia. There is however new onset A. fib. Discussed with patient risks and benefits and he elected for Eliquis treatment at this time which was prescribed. Remainder of lab work is unremarkable. Ambulated without desaturation. Nonfocal neurologic exam and did not see any sign of cord compression. At this time I believe patient would be safe for discharge and outpatient follow-up. Return precautions provided. Plan was reviewed with the patient who expressed understanding. Questions answered. Patient will follow up with PCP. Patient discharged in stable condition. Lab Data: Labs: Lab Results 02/15/21 02/15/21 02/15/21 07:59 07:59 07:59 WBC 5.2 10^3/uL 10^3/ uL (4.0-10.0) RBC 4.75 10^6/uL 10^6 /uL (4.1-5.3) Hgb 15.5 g/dL g/dL (11.7-16.6) Hct 46.2 % % (42.0-52.0) MCV 97.3 fl H fl (80-94) MCH 32.6 pg pg (28.0-34.0) MCHC 33.5 g/dL g/dL (30.0-36.0) RDW 12.6 % % (12.1-15.1) Plt Count 147 10^3/cmm 10^3 /cmm (130-400) MPV 9.7 fL fL (7.4-10.4) Neut % (Auto) 64.9 % % Lymph % (Auto) 22.5 % % [place] % (Auto) 11.8 % % Eos % (Auto) 0.2 % % Baso % (Auto) 0.2 % % Neut # (Auto) 3.40 10^3/uL 10^3 /uL (1.8-7.7) Lymph # (Auto) 1.2 10^3/uL 10^3/ uL (0.8-4.8) [place] # (Auto) 0.6 10^3/uL 10^3/ uL (0.2-0.9) Eos # (Auto) 0.0 10^3/uL 10^3/ uL (0.0-0.8) Baso # (Auto) 0.0 10^3/uL 10^3/ uL (0.0-0.1) Nucleated RBC % (a uto) 0 % % Nucleated RBCs # 0.0 /100WBC /100W BC PT 14.70 SECONDS SEC ONDS (12.1-14.9) INR 1.12 (0.8-1.2) APTT 30.9 SECONDS SECO NDS (23.9-36.7) Sodium 137 mmol/L mmol/L (136-145) Potassium 4.1 mmol/L mmol/L (3.5-5.1) Chloride 99 mmol/L mmol/L (98-107) Carbon Dioxide 20 mmol/L L mmol/ L (22-29) Anion Gap 22.1 H (5-19) BUN 15 mg/dL mg/dL (8-23) Creatinine 1.0 mg/dL mg/dL (0.7-1.2) GFR Calculation Not Reportable Glucose 97 mg/dL mg/dL (65-115) Calculated Osmolal ity 285 mOsm/kg mOsm/ kg (285-295) Calcium 8.4 mg/dL L mg/dL (8.5-10.5) Total Bilirubin 0.3 mg/dL mg/dL (0.15-1.2) AST 28 U/L U/L (0-40) ALT 18 U/L U/L (0-41) Alkaline Phosphata se 74 IU/L IU/L (40-130) Creatine Kinase Troponin T Baselin e Troponin T 120 Min [place] Troponin T NT-Pro-B Natriuret Pep 70 pg/mL pg/mL (0-450) Total Protein 7.0 g/dL g/dL (6.6-8.7) Albumin 4.3 g/dL g/dL (3.5-5.2) Globulin 2.7 g/dL g/dL (1.3-4.6) SARS-CoV-2 Ag (Rap id) 02/15/21 02/15/21 02/15/21 07:59 07:59 10:15 WBC RBC Hgb Hct MCV MCH MCHC RDW Plt Count MPV Neut % (Auto) Lymph % (Auto) [place] % (Auto) Eos % (Auto) Baso % (Auto) Neut # (Auto) Lymph # (Auto) [place] # (Auto) Eos # (Auto) Baso # (Auto) Nucleated RBC % (a uto) Nucleated RBCs # PT INR APTT Sodium Potassium Chloride Carbon Dioxide Anion Gap BUN Creatinine GFR Calculation Glucose Calculated Osmolal ity Calcium Total Bilirubin AST ALT Alkaline Phosphata se Creatine Kinase 131 U/L U/L (39-308) Troponin T Baselin e 13 ng/L ng/L (0-15) Troponin T 120 Min [place] 11.29 ng/L ng/L (0-15) Delta Troponin T -1.71 ABS# L ABS# (0-10) NT-Pro-B Natriuret Pep Total Protein Albumin Globulin SARS-CoV-2 Ag (Rap id) 02/15/21 10:55 WBC RBC Hgb Hct MCV MCH MCHC RDW Plt Count MPV Neut % (Auto) Lymph % (Auto) [place] % (Auto) Eos % (Auto) Baso % (Auto) Neut # (Auto) Lymph # (Auto) [place] # (Auto) Eos # (Auto) Baso # (Auto) Nucleated RBC % (a uto) Nucleated RBCs # PT INR APTT Sodium Potassium Chloride Carbon Dioxide Anion Gap BUN Creatinine GFR Calculation Glucose Calculated Osmolal ity Calcium Total Bilirubin AST ALT Alkaline Phosphata se Creatine Kinase Troponin T Baselin e Troponin T 120 Min [place] Troponin T NT-Pro-B Natriuret Pep Total Protein Albumin Globulin SARS-CoV-2 Ag (Rap id) Positive H (Negative) EKG Data^: EKG 1: Other EKG comments: A. fib with a controlled rate of 90, no sign of acute ischemia or other acute abnormality. Discharge Plan Discharge Patient Disposition: Home Clinical Impression: COVID-19, A-fib Condition: Stable Prescriptions: New Eliquis 5 mg tablet 5 mg PO BID Qty: 30 RF: 0 No Action losartan 100 mg tablet 100 mg PO QAM Qty: 30 RF: 3 aspirin 81 mg Tablet,Delayed Release (Dr/Ec) 81 mg PO QAM RF: 0 vitamin E 1 cap PO QAM RF: 0 ezetimibe [Zetia] 10 mg tablet 10 mg PO QAM RF: 0 Synthroid 25 mcg tablet 25 mcg PO DAILY RF: 0 Discharge Orders: Discharge ED (Routine); Ordered 02/15/21 Ordered By: Cholo Blanchard Referrals: Denis Nowak MD [Primary Care Provider] - 1-3 days Patient Instructions: A-fib (Atrial Fibrillation) (ED), COVID-19 (Coronavirus Disease 2019) (ED), Opioid Safety Coding Level of Care Code ED 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
--- NOTE | 2021-02-15 07:44 | CTR_ITS ---
PROCEDURE INFORMATION: Exam: CTA Chest With Contrast Exam date and time: 02/15/2021 7:44 AM Age: 80 years old Clinical indication: Pain; Other: In back between shoulder blades; Additional info: Dissection TECHNIQUE: Imaging protocol: Computed tomographic angiography of the chest with contrast. 3D rendering (Not supervised by radiologist): MIP and/or 3D reconstructed images were created by the technologist. Radiation optimization: All CT scans at this facility use at least one of these dose optimization techniques: automated exposure control; mA and/or kV adjustment per patient size (includes targeted exams where dose is matched to clinical indication); or iterative reconstruction. Contrast material: OMNI 350; Contrast volume: 95 ml; Contrast route: INTRAVENOUS (IV); COMPARISON: CTA Chest-Pulmonary Emb [id number] 03/09/2016 9:52 AM RADIATION DOSE METRICS: Total DLP (mGy-cm): 1437.35 FINDINGS: Pulmonary arteries: Normal. No pulmonary emboli. Aorta: Unremarkable. No aortic aneurysm. No aortic dissection. Lungs: Tiny calcified granuloma noted in the right lower lobe. Stable 1.1 cm nodule in the right upper lobe. Two stable subpleural nodules are again seen in the right lower lobe, the largest measuring 0.7 cm. No new nodule seen. Minimal paraseptal emphysema is present. There is ground-glass opacities scattered throughout both lungs in a predominantly peripheral distribution. Pleural spaces: Unremarkable. No pneumothorax. No pleural effusion. Heart: Normal heart size. Coronary atherosclerotic calcifications seen. No pericardial effusion. Lymph nodes: Tiny calcified lymph nodes noted in the right hilar region, likely sequela of previous granulomatous disease. Liver: Unchanged subcentimeter focus of decreased attenuation in the right hepatic lobe, which may represent a cyst or hemangioma. The liver is otherwise unremarkable. Gallbladder and bile ducts: The gallbladder has been surgically removed. Kidneys and ureters: Interval decrease in size of the cyst along the medial aspect of the left upper kidney. Other bilateral cystic and hyperdense bilateral kidney lesions are stable. There is bilateral nonobstructive kidney stones, the largest in the left upper kidney measuring 0.5 cm. No hydronephrosis. Stomach and bowel: There is diverticulosis without evidence of diverticulitis. Bones/joints: Degenerative changes of the spine seen. Surgical changes of the right shoulder noted. Soft tissues: Unremarkable. CT/CT angio chest [id number] IMPRESSION: 1. No pulmonary embolus. 2. Commonly reported imaging features of (COVID-19) pneumonia are present. Other processes such as influenza pneumonia and organizing pneumonia, as can be seen with drug toxicity and connective tissue disease, can cause a similar imaging pattern. 3. Lungs term stability or pulmonary nodules. No new nodule. 4. Stable bilateral kidney lesions. Further characterization with contrast enhanced abdomen MRI in a non emergent basis should be considered.
[2021-02-15] MEDS: labetalol 5 mg/mL SDV 20mL 10 MG IVP (08:00)
[2021-02-15 08:03] LABS: Basophils % 0.2 %; Eosinophils % 0.2 %; Hematocrit 46.2 % (42.0-52.0); Hemoglobin 15.5 g/dL (11.7-16.6); Lymphocytes # 1.2 10^3/uL (0.8-4.8); Lymphocytes % 22.5 %; Mean Corpuscular HGB Conc 33.5 g/dL (30.0-36.0); Mean Corpuscular Hemoglobin 32.6 pg (28.0-34.0); Mean Corpuscular Volume 97.3 fl (80-94); Mean Platelet Volume 9.7 fL (7.4-10.4); Monocytes # 0.6 10^3/uL (0.2-0.9); Monocytes % 11.8 %; Neutrophils % 64.9 %; Nucleated Red Blood Cells % 0 %; Platelet Count 147 10^3/cmm (130-400); Red Blood Count 4.75 10^6/uL (4.1-5.3); Red Cell Distribution Width 12.6 % (12.1-15.1); White Blood Count 5.2 10^3/uL (4.0-10.0)
[2021-02-15] MEDS: nitroglycerin 0.4 mg sublingual Tablet SUBLINGUAL ×2 (08:25→08:32)
[2021-02-15 08:26] LABS: Troponin(5th) Baseline 13 ng/L (0-15)
[2021-02-15 08:38] LABS: Alanine Aminotransferase 18 U/L (0-41); Albumin Level 4.3 g/dL (3.5-5.2); Alkaline Phosphatase 74 IU/L (40-130); Anion Gap 22.1 (5-19); Aspartate Amino Transferase 28 U/L (0-40); Blood Urea Nitrogen 15 mg/dL (8-23); Calcium 8.4 mg/dL (8.5-10.5); Carbon Dioxide 20 mmol/L (22-29); Chloride 99 mmol/L (98-107); Globulin 2.7 g/dL (1.3-4.6); Glucose 97 mg/dL (65-115); INR 1.12 (0.8-1.2); NT Pro B Type Natriuretic Pept 70 pg/mL (0-450); Osmolality Calculated 285 mOsm/kg (285-295); Potassium 4.1 mmol/L (3.5-5.1); Sodium 137 mmol/L (136-145); Total Bilirubin 0.3 mg/dL (0.15-1.2)
--- NOTE | 2021-02-15 08:51 | PC.NURSE ---
PATIENT GIVEN 2 NITRO TABLETS. THIRD TABLET NOT GIVEN, PATIENT STATES THAT HE IS FEELING BETTER AND CHEST PAIN IS BETTER. PATIENT BP 109/81.
[2021-02-15 08:55] LABS: Partial Thromboplastin Time 30.9 SECONDS (23.9-36.7)
[2021-02-15] MEDS: iohexol 350 mg/mL 100 mL Btl IV (08:56)
--- NOTE | 2021-02-15 09:44 | ECG_ITS ---
[facility] Test Date: 2021-02-15 Pat Name: David Orozco Department: Room: Gender: Male Manager Presentation: : 1940 Requested By: Cholo Blanchard Order Number: [id number] Lopez MD: Maximino Berkowitz M.D. Measurements Intervals [place] Rate: 72 P: 44 [place]: 203 QRS: -11 QRSD: 88 T: 46 QT: 368 QTc: 404 Interpretive Statements SINUS RHYTHM WITH OCCASIONAL SUPRAVENTRICULAR PREMATURE COMPLEXES NONSPECIFIC T-WAVE ABNORMALITY Compared to ECG 02/15/2021 07:51:09 T-wave abnormality now present Atrial fibrillation no longer present Myocardial infarct finding no longer present Electronically Signed On 02-17-2021 7:49:57 DIRECTOR CARDIOLOGY by Maximino Berkowitz M.D. [id number]
[2021-02-15 10:55] LABS: Troponin 5 2HR 11.29 ng/L (0-15)
[2021-02-15 10:56] LABS: Troponin 5 2HR Delta -1.71 ABS# (0-10)
[2021-02-15 11:26] LABS: SARS Covid-2 Antigen Positive (Negative)
--- NOTE | 2021-02-15 12:04 | PC.PHAR ---
pt states he takes care of his own medications-pt states he is unsure if he takes levothyroxine ext med history shows last filled 01/31/21 30d/s 25mcg daily-notes are made in the pharmacy comments
[2021-02-15 12:09] LABS: Creatine Phosphokinase 131 U/L (39-308)
--- NOTE | 2021-02-15 13:44 | ECG_ITS ---
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1940 Requested By: Cholo Blanchard Order Number: [id number] Jessica MD: VIRGINIA FORTE Measurements Intervals [place] Rate: 90 P: [place]: QRS: -21 QRSD: 80 T: 37 QT: 324 QTc: 398 Interpretive Statements ATRIAL FIBRILLATION POSSIBLE ANTERIOR MYOCARDIAL INFARCTION , PROBABLY OLD [30 ms Q WAVE IN V3/V4, OR R < 0.2 mV IN V4] ABNORMAL RHYTHM ECG Compared to ECG 10/17/2020 19:46:12 Myocardial infarct finding now present Sinus rhythm no longer present Electronically Signed On 02-15-2021 9:59:36 ADMINISTRATIVE SERVICES DIRECTOR by VIRGINIA FORTE [id number]
== END 2021-02-15 12:27 | disposition home or self-care (01) ==
PROVIDERS: Emergency Provider Emergency Medicine; PCP Internal Medicine
DX: U07.1 COVID-19 (principal); I48.91 Unspecified atrial fibrillation; Z79.82 Long term (current) use of aspirin; I25.10 Atherosclerotic heart disease of native coronary artery without angina pectoris; I10 Essential (primary) hypertension; E78.5 Hyperlipidemia, unspecified; Z87.891 Personal history of nicotine dependence
CPT/HCPCS: 71045; 71275; 80053; 82550; 83880; 84484; 85025; 85610; 85730; 87426; 93005; 96374; 99284; J3490; Q9967

== ENCOUNTER 2021-02-17 13:50 | Emergency (ER) | payer MEDICARE, MEDICAID, SELFPAY ==
[2021-02-17 13:52] VITALS: BP 168/88; PULSE 81; RESP 16; TEMP 37.1; O2SAT 97
--- NOTE | 2021-02-17 13:52 | ED_ITS ---
HPI - SOB/Dyspnea General: Chief Complaint: Chest Pain Stated Complaint: SOB Time Seen by Provider: 02/17/21 13:51 History of Present Illness: HPI Narrative: Mr. Orozco is an 80-year-old gentleman with history of new atrial fibrillation, hypertension, hyperlipidemia, hypothyroidism,and recent COVID-19 who presents to the emergency department due to pain between her shoulder blades. He reports it being worse throughout the day. He has trouble characterizing it but describes it as a moderate intensity pain. There are no specific other associated symptoms or exacerbating or alleviating factors. He has had similar episodes in the past and was recently in the emergency department on 02/15 and at that time new onset atrial fibrillation and Covid. Review of Systems General: Reports: 10 or more systems reviewed and unremarkable except in HPI and below PFSH ED PFSH: Medical History Atherosclerotic heart disease of [place] coronary artery without angina pectoris Benign essential HTN 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 Father Dementia Denies family history of Diabetes CAD (coronary artery disease) Clotting disorder Chronic kidney disease (CKD) Suicide Anesthesia complication Bleeding disorder Lung disease Cancer Stroke Social History Smoking and tobacco status: former smoker Alcohol intake: current Alcohol intake frequency: holidays/special occasions only Housing: House Marital status: / History of recent travel: No Physical Exam Narrative: EXAM NARRATIVE: GENERAL/CONSTITUTIONAL - well-appearing. Eyes - PERRL, no conjunctival injection ENMT - Atraumatic external nose and ears. Moist mucous membranes NECK - supple. trachea midline CARDIOVASCULAR - regular rate and rhythm. Normal peripheral perfusion RESPIRATORY - diminished and coarse to auscultation bilaterally. No retractions or accessory muscle use. ABDOMEN/GI - Nontender/Nondistended. No tenderness to percussion or evidence of peritonitis MSK - Extremities without obvious deformity or tenderness to palpation SKIN - Warm, Dry NEURO - alert and appropriately oriented. Moves all extremities equally. Course ED course: - Patient was seen and evaluated by me at bedside - Patient placed on cardiac monitors, IV access obtained - Initial evaluation notable for exam as above -Symptom treatment ordered - Labs notable for no significant hematologic or metabolic abnormality to explain patient's symptoms. Delta troponin negative. Procalcitonin negative. - Imaging notable for no acute finding on x-ray - Upon serial reexamination after treatment the patient was similar - Based on patient history, evaluation, labs, and imaging as interpreted the most likely cause of the patient's condition is unclear shoulder blade pain likely secondary to Covid. He has had a cardiac evaluation with the past year which did not reveal abnormality and I have no reason to believe that the patient is suffering from acute change given negative delta troponin and clinical history. - The results of ED evaluation were discussed with the patient including prescr iptions and/or symptomatic cares (if applicable) including appropriate and responsible use, followup plan, and return precautions. The patient did express some concern regarding that his pain did not change significantly however I do not believe that he meets inpatient or observation criteria at this time. - Patient discharged in satisfactory condition. Vital Signs: Vital signs: Vital Signs Temperature 98.7 F 02/17/21 14:44 Pulse Rate 80 02/17/21 19:52 Respiratory Rate 16 02/17/21 19:52 Blood Pressure 105/86 02/17/21 19:52 Pulse Oximetry 94 02/17/21 19:52 MDM - SOB/Dyspnea Medical Records: Attestation: I reviewed the patient's medical records. Lab Data: Attestation: I reviewed the patient's lab results. Labs: Lab Results 02/17/21 02/17/21 02/17/21 14:00 14:00 14:00 WBC 4.7 10^3/uL 10^3/ uL (4.0-10.0) RBC 4.91 10^6/uL 10^6 /uL (4.1-5.3) Hgb 16.0 g/dL g/dL (11.7-16.6) Hct 47.0 % % (42.0-52.0) MCV 95.7 fl H fl (80-94) MCH 32.6 pg pg (28.0-34.0) MCHC 34.0 g/dL g/dL (30.0-36.0) RDW 12.9 % % (12.1-15.1) Plt Count 150 10^3/cmm 10^3 /cmm (130-400) MPV 10.2 fL fL (7.4-10.4) Neut % (Auto) 66.6 % % Lymph % (Auto) 23.9 % % [place] % (Auto) 9.1 % % Eos % (Auto) 0.0 % % Baso % (Auto) 0.2 % % Neut # (Auto) 3.14 10^3/uL 10^3 /uL (1.8-7.7) Lymph # (Auto) 1.1 10^3/uL 10^3/ uL (0.8-4.8) [place] # (Auto) 0.4 10^3/uL 10^3/ uL (0.2-0.9) Eos # (Auto) 0.0 10^3/uL 10^3/ uL (0.0-0.8) Baso # (Auto) 0.0 10^3/uL 10^3/ uL (0.0-0.1) Nucleated RBC % (a uto) 0 % % Nucleated RBCs # 0.0 /100WBC /100W BC Sodium 136 mmol/L mmol/L (136-145) Potassium 4.1 mmol/L mmol/L (3.5-5.1) Chloride 100 mmol/L mmol/L (98-107) Carbon Dioxide 21 mmol/L L mmol/ L (22-29) Anion Gap 19.1 H (5-19) BUN 17 mg/dL mg/dL (8-23) Creatinine 1.1 mg/dL mg/dL (0.7-1.2) GFR Calculation Not Reportable Glucose 107 mg/dL mg/dL (65-115) Calculated Osmolal ity 284 mOsm/kg L mOs m/kg (285-295) Calcium 8.2 mg/dL L mg/dL (8.5-10.5) Total Bilirubin 0.3 mg/dL mg/dL (0.15-1.2) AST 34 U/L U/L (0-40) ALT 21 U/L U/L (0-41) Alkaline Phosphata se 69 IU/L IU/L (40-130) Troponin T Baselin e 14 ng/L ng/L (0-15) Troponin T 120 Min [place] Troponin T C-Reactive Protein NT-Pro-B Natriuret Pep 39 pg/mL pg/mL (0-450) Total Protein 6.7 g/dL g/dL (6.6-8.7) Albumin 3.9 g/dL g/dL (3.5-5.2) Globulin 2.8 g/dL g/dL (1.3-4.6) Lipase 52 U/L U/L (13-60) Procalcitonin 02/17/21 02/17/21 14:00 17:10 WBC RBC Hgb Hct MCV MCH MCHC RDW Plt Count MPV Neut % (Auto) Lymph % (Auto) [place] % (Auto) Eos % (Auto) Baso % (Auto) Neut # (Auto) Lymph # (Auto) [place] # (Auto) Eos # (Auto) Baso # (Auto) Nucleated RBC % (a uto) Nucleated RBCs # Sodium Potassium Chloride Carbon Dioxide Anion Gap BUN Creatinine GFR Calculation Glucose Calculated Osmolal ity Calcium Total Bilirubin AST ALT Alkaline Phosphata se Troponin T Baselin e Troponin T 120 Min [place] 12.94 ng/L ng/L (0-15) Delta Troponin T -1.06 ABS# L ABS# (0-10) C-Reactive Protein 34.5 mg/L H mg/L (0.0-4.9) NT-Pro-B Natriuret Pep Total Protein Albumin Globulin Lipase Procalcitonin 0.12 ng/mL ng/mL (0-0.5) EKG Data^: EKG 1: Attestation: I personally reviewed and interpreted this EKG as follows: EKG Interpretation Date: 02/07/21 EKG interpretation time: 14:47 Interpretation: Twelve-lead EKG shows a regular rhythm at a rate of 73. WA interval 196, QRS duration 89, QTc 393. Normal axis. Interpretation: Sinus rhythm, nonspecific ST segment abnormalities. EKG 2: Attestation: I personally reviewed and interpreted this EKG as follows: EKG Interpretation Date: 02/17/21 EKG interpretation time: 17:06 Interpretation: Twelve-lead EKG shows a regular rhythm at a rate of 70. WA interval is present and appears grossly normal, QRS duration 90, QTc 397. Normal axis. Interpretation: Sinus rhythm. Similar to prior. Electronic interpretation of atrial fibrillation is incorrect. Discharge Plan Discharge Patient Disposition: Home Clinical Impression: Chest pain, COVID-19 Condition: Stable Prescriptions: No Action losartan 100 mg tablet 100 mg PO QAM Qty: 30 RF: 3 aspirin 81 mg Tablet,Delayed Release (Dr/Ec) 81 mg PO QAM RF: 0 vitamin E 1 cap PO QAM RF: 0 ezetimibe [Zetia] 10 mg tablet 10 mg PO QAM RF: 0 Flonase 50 mcg/actuation [place],Suspension 2 spray INTRANASAL DAILY RF: 0 diclofenac sodium 1 % Gel 2 g TOPICAL QID PRN (Reason: Pain) RF: 0 levothyroxine [Synthroid] 25 mcg tablet 25 mcg PO DAILY RF: 0 Eliquis 5 mg tablet 5 mg PO BID Qty: 30 RF: 0 Discharge Orders: Discharge ED (Routine); Ordered 02/17/21 Ordered By: Orlando Valentine Referrals: Denis Nowak MD [Primary Care Provider] - Discharge Diet: Usual diet Discharge Activity: Resume usual activity Patient Instructions: Chest Pain (ED), COVID-19 (Coronavirus Disease 2019) (ED) Activity Restrictions/Additional Instructions: Thank you for visiting the emergency department. You were seen and evaluated for pain behind your shoulder blades. The exact cause of your symptoms is unclear however does not appear to need hospitalization at this time. It is likely related to COVID-19. Please follow-up with your primary care provider. Return to the ED for anything that you are concerned about and feel needs emergency department evaluation. Coding Level of Care Code ED Plant Science Professor for Victo rM Hale
[2021-02-17 14:02] VITALS: BP 168/88; PULSE 81; RESP 16; TEMP 37.1; O2SAT 97
--- NOTE | 2021-02-17 14:09 | XRR_ITS ---
PROCEDURE INFORMATION: Exam: XR Chest Exam date and time: 02/17/2021 2:09 PM Age: 80 years old Clinical indication: Other: Pain between shoulder blades TECHNIQUE: Imaging protocol: XR of the chest. Views: 1 view. COMPARISON: CR XR chest 1V portable [id number] 02/15/2021 7:57 AM FINDINGS: Lungs: No consolidation. Pleural spaces: No pleural effusion. No pneumothorax. Heart/Mediastinum: No cardiomegaly. Bones/joints: Rotator cuff anchors noted in the right humeral head. Visualized osseous structures are intact. XR/XR chest 1V portable [id number] IMPRESSION: No acute findings.
--- NOTE | 2021-02-17 14:10 | ECG_ITS ---
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 Measurements Intervals [place] Rate: 73 P: 56 NE: 196 QRS: 8 QRSD: 89 T: 23 QT: 367 QTc: 406 Interpretive Statements SINUS RHYTHM WITH OCCASIONAL SUPRAVENTRICULAR PREMATURE COMPLEXES LOW QRS VOLTAGE IN PRECORDIAL LEADS [QRS DEFLECTION < 1.0 mV IN CHEST LEADS] Compared to ECG 02/15/2021 10:06:03 Low QRS voltage now present T-wave abnormality no longer present Electronically Signed On 02-17-2021 16:52:02 CONSTRUCTION CARPENTER by Kavon Cordoba M.D. [id number] f
[2021-02-17 14:24] LABS: Basophils % 0.2 %; Lymphocytes # 1.1 10^3/uL (0.8-4.8); Lymphocytes % 23.9 %; Mean Corpuscular Hemoglobin 32.6 pg (28.0-34.0); Mean Corpuscular Volume 95.7 fl (80-94); Mean Platelet Volume 10.2 fL (7.4-10.4); Monocytes # 0.4 10^3/uL (0.2-0.9); Monocytes % 9.1 %; Neutrophils # 3.14 10^3/uL (1.8-7.7); Neutrophils % 66.6 %; Nucleated Red Blood Cells % 0 %; Platelet Count 150 10^3/cmm (130-400); Red Blood Count 4.91 10^6/uL (4.1-5.3); Red Cell Distribution Width 12.9 % (12.1-15.1); White Blood Count 4.7 10^3/uL (4.0-10.0)
[2021-02-17 14:44] VITALS: BP 163/82; PULSE 76; RESP 18; TEMP 37.1; O2SAT 95
[2021-02-17] MEDS: methocarbamol 750 mg Tablet PO (14:44)
[2021-02-17] MEDS: ketorolac 30 mg/mL INJ 15 MG IVP ×2 (14:44→19:27)
[2021-02-17 14:46] LABS: Troponin(5th) Baseline 14 ng/L (0-15)
[2021-02-17 14:53] LABS: Alanine Aminotransferase 21 U/L (0-41); Albumin Level 3.9 g/dL (3.5-5.2); Alkaline Phosphatase 69 IU/L (40-130); Anion Gap 19.1 (5-19); Aspartate Amino Transferase 34 U/L (0-40); Blood Urea Nitrogen 17 mg/dL (8-23); Calcium 8.2 mg/dL (8.5-10.5); Carbon Dioxide 21 mmol/L (22-29); Chloride 100 mmol/L (98-107); Globulin 2.8 g/dL (1.3-4.6); Glucose 107 mg/dL (65-115); Lipase 52 U/L (13-60); NT Pro B Type Natriuretic Pept 39 pg/mL (0-450); Osmolality Calculated 284 mOsm/kg (285-295); Potassium 4.1 mmol/L (3.5-5.1); Sodium 136 mmol/L (136-145); Total Bilirubin 0.3 mg/dL (0.15-1.2); Total Protein 6.7 g/dL (6.6-8.7)
--- NOTE | 2021-02-17 16:10 | ECG_ITS ---
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 Measurements Intervals [place] Rate: 70 P: [place]: QRS: 12 QRSD: 90 T: 12 QT: 377 QTc: 407 Interpretive Statements ATRIAL FIBRILLATION LOW QRS VOLTAGE IN PRECORDIAL LEADS [QRS DEFLECTION < 1.0 mV IN CHEST LEADS] ABNORMAL RHYTHM ECG Compared to ECG 02/17/2021 14:33:49 Sinus rhythm no longer present Electronically Signed On 02-18-2021 20:13:36 DIRECTOR PROCESS ENGINEERING by Kavon Cordoba M.D. [id number] f
[2021-02-17 16:17] LABS: C Reactive Protein 34.5 mg/L (0.0-4.9)
[2021-02-17 16:25] LABS: Procalcitonin 0.12 ng/mL (0-0.5)
[2021-02-17 17:40] LABS: Troponin 5 2HR 12.94 ng/L (0-15)
[2021-02-17 17:46] LABS: Troponin 5 2HR Delta -1.06 ABS# (0-10)
[2021-02-17 19:14] VITALS: BP 173/87; PULSE 76; RESP 18; O2SAT 94
[2021-02-17 19:52] VITALS: BP 105/86; PULSE 80; RESP 16; O2SAT 94
== END 2021-02-17 19:54 | disposition home or self-care (01) ==
PROVIDERS: Emergency Provider Emergency Medicine; PCP Internal Medicine
DX: U07.1 COVID-19 (principal); R07.9 Chest pain, unspecified; Z79.82 Long term (current) use of aspirin; Z79.01 Long term (current) use of anticoagulants; I25.10 Atherosclerotic heart disease of native coronary artery without angina pectoris; E78.5 Hyperlipidemia, unspecified; Z87.891 Personal history of nicotine dependence
CPT/HCPCS: 71045; 80053; 83690; 83880; 84145; 84484; 85025; 86140; 93005; 96374; 96375; 99284; J1885

== ENCOUNTER 2021-03-22 06:49 | Emergency (ER) | payer MEDICARE, MEDICAID, SELFPAY ==
[2021-03-22 07:12] VITALS: BP 180/83; PULSE 90; RESP 16; TEMP 36.8; O2SAT 97; BMI 30.4
--- NOTE | 2021-03-22 07:23 | CT_ITS ---
WS: [id number] CT ABDOMEN PELVIS TECHNIQUE: Contrast-enhanced CT of the abdomen and pelvis with coronal and sagittal reformatted image s. CLINICAL INFORMATION: LLQ pain, hx of diverticula COMPARISON: CT 10 ,018 DLP: 1751.[address] scans at [facility] use at least one of these dose optimization techniques: automated e xposure control; mA and/or kV adjustment per patient size (includes targeted exams where dose is matc hed to clinical indication); or iterative reconstruction. FINDINGS: Mild left hydronephrosis with pelvocaliectasis and ureterectasis. Obstructing left UVJ 5 mm calculus is new from previous. No hydronephrosis in right kidney. Right ureter is decompressed. Bilateral renal cysts largest in the left measuring 4.1 CM. Small hepatic cysts. Normal portal veins and splenic vein. Prior cholecystectomy. Normal GE junction. Lung bases are well aerated. Normal spleen. Adrenal glands are normal. Normal caliber abdominal aort a. Aortic calcification. Sigmoid diverticulosis. No evidence of acute diverticulitis. Normal appendix in the right lower quadr ant. Lumbar scoliosis convex right. No periaortic or pelvic lymphadenopathy. No inguinal lymphadenopa thy. Partial ankylosis of the L3-[address]/CT abdomen pelvis w con* [id number] IMPRESSION: 1. Obstructing 5 mm calculus at the left UVJ with mild left hydronephrosis or ureterectasis. 2. No hydronephrosis in right kidney. 3. Bilateral renal cysts. 4. Diverticulosis. No evidence of acute diverticulitis. 5. No other significant changes compared to previous. Notified REESE Pimentel at 03/22/2021 8:32 AM.
--- NOTE | 2021-03-22 07:25 | W.ED.ABDPA2 ---
HPI - Abdominal Pain General: Chief Complaint: Abdominal Pain Stated Complaint: pain in lower left side Time Seen by Provider: 03/22/21 07:01 History of Present Illness: HPI narrative: This pleasant gentleman presents to the ER with left lower quadrant abdominal pain that began last night. Patient states pain is slightly worse. Has not relented at all. Denies any other related illnesses or recent symptoms. MD elicited complaint: abdominal pain Onset (ago): hour(s) Pain Consistency: constant Location: LLQ Severity: mild Quality: aching Radiation: none Relieving factors: nothing Associated Symptoms: Reports no associated symptoms; Denies chills, fever(s), nausea and vomiting Review of Systems Const: Denies: fever(s), chills or body aches Eyes: Denies: change in vision or blurry vision ENMT: Denies: throat pain or nasal congestion Card: Denies: chest pain or dyspnea on exertion Resp: Denies: dyspnea, productive cough or non-productive cough GI: Reports: abdominal pain; Denies: nausea or vomiting : Denies: difficulty urinating Musc: Denies: extremity pain Skin/Breast: Denies: rash Neuro: Denies: headache(s) Psych: Denies: anxiety or depression Daniel/Lymph: Denies: easy bruising PFSH ED PFSH: Medical History Atherosclerotic heart disease of [place] coronary artery without angina pectoris Benign essential HTN 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 Father Dementia Denies family history of Diabetes CAD (coronary artery disease) Clotting disorder Chronic kidney disease (CKD) Suicide Anesthesia complication Bleeding disorder Lung disease Cancer Stroke Social History Smoking and tobacco status: former smoker Alcohol intake: current Alcohol intake frequency: holidays/special occasions only Housing: House Marital status: / History of recent travel: No Physical Exam Const: COMMON NORMALS: no acute distress, average body habitus and patient oriented x3 HENMT: COMMON NORMALS: normocephalic HEAD & SCALP: normal to inspection and normocephalic FACE & SINUS: normal facial exam Eye: COMMON NORMALS: conjunctivae normal GENERAL EYE: appearance normal, both eyes and all related structures CONJUNCTIVA: Yes conjunctivae normal Neck/C-Spine: COMMON NORMALS: no JVD Chest: COMMONS NORMALS: normal inspection of the chest Resp: COMMON NORMALS: normal respiratory effort and clear to auscultation bilaterally AUSCULTATION: clear to auscultation bilaterally Cardio: COMMON NORMALS: no JVD, regular rate and regular rhythm RATE: regular rate RHYTHM: regular rhythm GI: INSPECTION: Yes normal to inspection AUSCULTATION: Yes normoactive bowel sounds PALPATION: Yes Tenderness to palpation present (GI) Details: LLQ Extremity: COMMON NORMALS: normal to inspection and full ROM Neuro: COMMON NORMALS: patient oriented x3 Course Vital Signs: Vital signs: Vital Signs Temperature 98.3 F 03/22/21 07:12 Pulse Rate 84 03/22/21 08:10 Respiratory Rate 16 03/22/21 08:10 Blood Pressure 168/94 03/22/21 08:10 Pulse Oximetry 97 03/22/21 08:10 MDM - Abdominal Pain MDM Narrative: Medical decision making narrative: Patient presents with left lower quadrant pain and history of diverticulosis. Patient did not have any flank pain. Labs show urine with hematuria and creatinine 1.3 which is just above his baseline. CT were report shows obstructing 5 mm calculus left UVJ with mild hydronephrosis no evidence of diverticulitis. Patient given IV fluids pain medication and an appoint was made with Dr. Vinson for evaluation patient was provided with strainer given prescription for pain medicine and Flomax. Lab Data: Labs: Lab Results 03/22/21 03/22/21 03/22/21 07:55 07:55 07:55 WBC 7.2 10^3/uL 10^3/ uL (4.0-10.0) RBC 4.25 10^6/uL 10^6 /uL (4.1-5.3) Hgb 14.0 g/dL g/dL (11.7-16.6) Hct 41.3 % L % (42.0-52.0) MCV 97.2 fl H fl (80-94) MCH 32.9 pg pg (28.0-34.0) MCHC 33.9 g/dL g/dL (30.0-36.0) RDW 13.2 % % (12.1-15.1) Plt Count 215 10^3/cmm 10^3 /cmm (130-400) MPV 9.4 fL fL (7.4-10.4) Neut % (Auto) 64.8 % % Lymph % (Auto) 19.0 % % [place] % (Auto) 13.7 % % Eos % (Auto) 1.8 % % Baso % (Auto) 0.4 % % Neut # (Auto) 4.68 10^3/uL 10^3 /uL (1.8-7.7) Lymph # (Auto) 1.4 10^3/uL 10^3/ uL (0.8-4.8) [place] # (Auto) 1.0 10^3/uL H 10^ 3/uL (0.2-0.9) Eos # (Auto) 0.1 10^3/uL 10^3/ uL (0.0-0.8) Baso # (Auto) 0.0 10^3/uL 10^3/ uL (0.0-0.1) Nucleated RBC % (a uto) 0 % % Nucleated RBCs # 0.0 /100WBC /100W BC Sodium 138 mmol/L mmol/L (136-145) Potassium 4.0 mmol/L mmol/L (3.5-5.1) Chloride 101 mmol/L mmol/L (98-107) Carbon Dioxide 23 mmol/L mmol/L (22-29) Anion Gap 18.0 (5-19) BUN 11 mg/dL mg/dL (8-23) Creatinine 1.3 mg/dL H mg/dL (0.7-1.2) GFR Calculation Not Reportable Glucose 93 mg/dL mg/dL (65-115) Calculated Osmolal ity 285 mOsm/kg mOsm/ kg (285-295) Calcium 8.7 mg/dL mg/dL (8.5-10.5) Total Bilirubin 0.8 mg/dL mg/dL (0.15-1.2) AST 13 U/L U/L (0-40) ALT 8 U/L U/L (0-41) Alkaline Phosphata se 73 IU/L IU/L (40-130) Total Protein 7.1 g/dL g/dL (6.6-8.7) Albumin 4.0 g/dL g/dL (3.5-5.2) Globulin 3.1 g/dL g/dL (1.3-4.6) Lipase 32 U/L U/L (13-60) Urine Color Yellow (Yellow) Urine Appearance Clear (CLEAR) Urine pH 6 (5-7) Ur Specific Gravit y 1.020 (1.005-1.030) Urine Protein Neg (Negative) Urine Glucose (UA) Norm (Normal) Urine Ketones Negative (Negative) Urine Blood 3+ H (Negative) Urine Nitrate Negative (Negative) Urine Bilirubin Neg (Negative) Urine Urobilinogen Norm mg/dL mg/dL (Negative) Ur Leukocyte [place] ase Negative (Negative) Urine RBC 15-25 /hpf H /hpf (0-2) Urine WBC 0-4 /hpf H /hpf (0-5) Ur Squamous Epith Cells 0-4 /hpf H /hpf (0-5) Amorphous Sediment Not Reportable Urine Bacteria Trace /hpf /hpf (NONE) Urine Mucus Trace /hpf /hpf Discharge Plan Discharge Patient Disposition: Home Clinical Impression: Calculus of ureterovesical junction (UVJ) Condition: Stable Prescriptions: New Flomax 0.4 mg capsule 0.4 mg PO DAILY Qty: 14 RF: 0 tramadol 50 mg tablet 50 mg PO TID PRN (Reason: pain) Qty: 7 RF: 0 No Action ezetimibe [Zetia] 10 mg tablet 10 mg PO QAM Qty: 90 RF: 3 losartan 100 mg tablet 100 mg PO QAM Qty: 90 RF: 3 aspirin 81 mg Tablet,Delayed Release (Dr/Ec) 81 mg PO QAM RF: 0 vitamin E 1 cap PO QAM RF: 0 Flonase 50 mcg/actuation [place],Suspension 2 spray INTRANASAL DAILY RF: 0 diclofenac sodium 1 % Gel 2 g TOPICAL QID PRN (Reason: Pain) RF: 0 levothyroxine [Synthroid] 25 mcg tablet 25 mcg PO DAILY RF: 0 Eliquis 5 mg tablet 5 mg PO BID Qty: 30 RF: 0 Discharge Orders: Discharge ED (Routine); Ordered 03/22/21 Ordered By: John Lopez Referrals: Denis Nowak MD [Primary Care Provider] - Discharge Diet: Usual diet Discharge Activity: Increase activity as tolerated Patient Instructions: Kidney Stones (ED) Activity Restrictions/Additional Instructions: Follow-up with medical provider as directed. Take medications as prescribed. Return to the ER or your medical provider if condition worsens. Please read and understand discharge instructions. If any questions ask please. Make sure you use your strainer to strain all urine. You will be contacted by the hospital without appointment for follow-up with Dr. Vinson to make sure that the stone has moved out of your body. If you have worsening symptoms please return here or see your primary care provider. Coding Level of Care Code ED Carpet Technician for Anag Fwd Exam Comprehensive
[2021-03-22] MEDS: iodixanol 320 mg/mL 100mL Btl IV (07:54)
[2021-03-22 08:03] LABS: Basophils % 0.4 %; Eosinophils # 0.1 10^3/uL (0.0-0.8); Eosinophils % 1.8 %; Hematocrit 41.3 % (42.0-52.0); Lymphocytes # 1.4 10^3/uL (0.8-4.8); Mean Corpuscular HGB Conc 33.9 g/dL (30.0-36.0); Mean Corpuscular Hemoglobin 32.9 pg (28.0-34.0); Mean Corpuscular Volume 97.2 fl (80-94); Mean Platelet Volume 9.4 fL (7.4-10.4); Monocytes % 13.7 %; Neutrophils # 4.68 10^3/uL (1.8-7.7); Neutrophils % 64.8 %; Nucleated Red Blood Cells % 0 %; Platelet Count 215 10^3/cmm (130-400); Red Blood Count 4.25 10^6/uL (4.1-5.3); Red Cell Distribution Width 13.2 % (12.1-15.1); White Blood Count 7.2 10^3/uL (4.0-10.0)
[2021-03-22] MEDS: sodium chloride 0.9% 1,000 ML 125 ML IV (08:05)
[2021-03-22 08:10] VITALS: BP 168/94; PULSE 84; RESP 16; O2SAT 97
[2021-03-22 08:27] LABS: Add Urine Microscopic? YES; Alanine Aminotransferase 8 U/L (0-41); Alkaline Phosphatase 73 IU/L (40-130); Aspartate Amino Transferase 13 U/L (0-40); Bilirubin Urine Neg (Negative); Blood Urea Nitrogen 11 mg/dL (8-23); Blood Urine 3+ (Negative); Calcium 8.7 mg/dL (8.5-10.5); Carbon Dioxide 23 mmol/L (22-29); Chloride 101 mmol/L (98-107); Globulin 3.1 g/dL (1.3-4.6); Glucose 93 mg/dL (65-115); Glucose Urine UA Norm (Normal); Ketones Urine Negative (Negative); Leukocyte Esterase Urine Negative (Negative); Lipase 32 U/L (13-60); Nitrate Urine Negative (Negative); Osmolality Calculated 285 mOsm/kg (285-295); Protein Urine Neg (Negative); Sodium 138 mmol/L (136-145); Total Bilirubin 0.8 mg/dL (0.15-1.2); Total Protein 7.1 g/dL (6.6-8.7); Urine Appearance Clear (CLEAR); Urine Color Yellow (Yellow); Urobilinogen Urine Norm (Negative); pH Urine 6 (5-7)
[2021-03-22 08:28] LABS: Add Urine Culture? Yes; Bacteria Urine TRACE /hpf; Creatinine Clr Calc Pharmacy 47.9164; Mucus Urine TRACE /hpf; RBC Urine 15-25 /hpf (0-2); Squamous Epithelial Cell Urine 0-4 /hpf (0-5); WBC Urine 0-4 /hpf (0-5)
[2021-03-22] MEDS: TRAMadol 50 mg Tablet PO (08:44)
[2021-03-22 08:59] VITALS: BP 168/94; PULSE 84; O2SAT 97
--- NOTE | 2021-03-22 10:11 | DCPLANNER ---
marketing traffic manager had message to schedule a follow up appointment for patient with Dr. Vinson. marketing traffic manager emailed patients information to Lopez Alcala and Luz at the office of Dr. Vinson. Patients information will be printed and reviewed. Clinic will call patient with appointment information.
--- NOTE | 2021-03-23 05:34 | DCPLANNER ---
Patient has a follow up appointment scheduled for Tuesday, March 23, 2021 at 10:[address] Vinson. Clinic will call patient with appointment information.
--- NOTE | 2021-03-27 08:03 | DCPLANNER ---
Patient had a follow up appointment scheduled for 03.23.[address] Vinson - patient did not attend appointment.
== END 2021-03-22 09:02 | disposition home or self-care (01) ==
PROVIDERS: Emergency Provider Nurse Practitioner Family; PCP Internal Medicine
DX: N20.1 Calculus of ureter (principal); Z79.82 Long term (current) use of aspirin; Z79.01 Long term (current) use of anticoagulants; I25.10 Atherosclerotic heart disease of native coronary artery without angina pectoris; I10 Essential (primary) hypertension; Z87.442 Personal history of urinary calculi; E78.5 Hyperlipidemia, unspecified; Z87.891 Personal history of nicotine dependence
CPT/HCPCS: 74177; 80053; 81001; 83690; 85025; 87086; 99283; J7030; Q9967

== ENCOUNTER 2021-04-08 16:31 | Emergency (ER) | payer MEDICARE, MEDICAID, SELFPAY ==
[2021-04-08 16:43] VITALS: BP 165/89; PULSE 92; RESP 18; TEMP 36.8; O2SAT 96; BMI 30.9
--- NOTE | 2021-04-08 17:31 | ED_ITS ---
HPI - Abdominal Pain General: Chief Complaint: Abdominal Pain Stated Complaint: ABD Pain Keeps getting worse Time Seen by Provider: 04/08/21 17:28 History of Present Illness: Patient is an 80-year-old male who comes to the ED for abdominal pain. Patient was seen here in the ED on March 22 and diagnosed with a kidney stone. This morning he woke up and he had worsening pain in his left lower abdomen. Abdominal pain pain is episodic and comes and goes with waves of severity. Currently he says his pain is not too bad and he rates it a 5 out of 10. Patient does not want any narcotics for pain while here in the ED. [place] dysuria or hematuria. Any nausea, vomiting, diarrhea, fevers or chills. Associated Symptoms: Denies chills, constipation, diarrhea, dysuria, fever(s), hematochezia, hematuria, nausea and vomiting Review of Systems Const: Denies: fever(s), chills or fatigue Eyes: Denies: change in vision or eye discomfort ENMT: Denies: throat pain, odynophagia, nasal discharge or nasal congestion Card: Denies: chest pain, palpitations, edema, swelling of feet/ankles, dyspnea on exertion or orthopnea Resp: Denies: dyspnea, productive cough or non-productive cough GI: Reports: abdominal pain; Denies: nausea, vomiting, diarrhea, constipation or hematochezia : Denies: flank pain, difficulty urinating, dysuria or hematuria Musc: Denies: neck pain, back pain or extremity swelling Skin/Breast: Denies: rash or new lesions Neuro: Denies: headache(s), numbness in extremities or weakness in extremities [facility] ED PFSH: Medical History Atherosclerotic heart disease of [place] coronary artery without angina pectoris Benign essential HTN 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 Father Dementia Denies family history of Diabetes CAD (coronary artery disease) Clotting disorder Chronic kidney disease (CKD) Suicide Anesthesia complication Bleeding disorder Lung disease Cancer Stroke Social History Smoking and tobacco status: former smoker Alcohol intake: current Alcohol intake frequency: holidays/special occasions only Housing: House Marital status: / History of recent travel: No Physical Exam Const: COMMON NORMALS: no acute distress, patient oriented x3 and alert GENERAL APPEARANCE: cooperative and comfortable HENMT: COMMON NORMALS: normocephalic HEAD & SCALP: normocephalic MOUTH: Normal oral and palatal mucosa present THROAT: posterior oropharynx normal and uvula midline Neck/C-Spine: COMMON NORMALS: supple GENERAL: Yes normal visual inspection Resp: COMMON NORMALS: normal respiratory effort, No retractions, No use of accessory muscles and clear to auscultation bilaterally AUSCULTATION: clear to auscultation bilaterally Cardio: COMMON NORMALS: regular rate, regular rhythm, S1 normal heart sound present, S2 normal heart sound present, No gallops present (Cardio), No clicks present (Cardio), No murmurs present (Cardio) and Peripheral pulses 2+ throughout RATE: regular rate RHYTHM: regular rhythm HEART SOUNDS: S1 normal heart sound present and S2 normal heart sound present PERIPHERAL PULSES: Peripheral pulses 2+ throughout GI: COMMON NORMALS: Normal to inspection, nondistended, normoactive bowel sounds present, Soft to palpation, non-tender and no masses PALPATION: Yes Soft to palpation : COMMON NORMALS: Yes no CVA tenderness BLADDER/KIDNEY EXAM: Yes no CVA tenderness Back/Pelvis: COMMON NORMALS: no CVA tenderness Extremity: COMMON NORMALS: normal to inspection Neuro: COMMON NORMALS: patient oriented x3 SENSORIUM/ORIENTATION: Yes alert GAIT: Yes Normal gait present Skin: GENERAL SKIN EXAM: dry skin Course Vital Signs: Vital signs: Vital Signs Temperature 98.1 F 04/08/21 20:16 Pulse Rate 64 04/08/21 20:16 Respiratory Rate 18 04/08/21 20:16 Blood Pressure 174/78 04/08/21 20:16 Pulse Oximetry 96 04/08/21 20:16 MDM - Abdominal Pain Medical Decision Making Patient is an 80-year-old male comes to the ED with left lower quadrant abdominal pain. He was seen here in the ED back on March 22 and diagnosed with a kidney stone on the left side. He is currently in the process of being set up with urology for follow-up appointment. Today he started having some acute pain in left lower quadrant earlier during the day but it got better and h ere in the ED his pain is mild and he did not want any narcotics. He denies any other symptoms such as fever, dysuria, hematuria, nausea/vomiting or diarrhea. Vitals are stable. Patient sitting comfortably on exam chair when entered the room and appears in no acute distress or pain. The rest of exam is benign. CBC, CMP and UA were unremarkable. CT kidney stone showed left distal ureteral stone at the UVJ which appears slightly more progressed than prior CT findings. The left hydronephrosis has resolved compared to previous CT. No other acute findings seen in the abdomen. Patient was diagnosed with left-sided kidney stone and discharged home. He was told that case management should be contacting you the next several days to set up an appointment with the urologist for follow-up. He was told to continue taking his previously prescribed medications. Return to ED precautions given. Patient understood and agreed with plan. Lab Data I reviewed the patient's lab results. : 04/08/21 16:50 04/08/21 18:45 Labs/Radiology: Radiology Impressions Abdomen/Pelvis CT 04/08/21 18:08 IMPRESSION: 1. No additional acute abnormalities in the abdomen or pelvis are identified. 2. Left distal ureteral stone is within the distal left UVJ with slightly more distal progression since prior. The hydroureteronephrosis has now resolved. Laboratory Results WBC 5.5 10^3/uL (4.0-10.0) 04/08/21 16:50 RBC 4.26 10^6/uL (4.1-5.3) 04/08/21 16:50 Hgb 14.2 g/dL (11.7-16.6) 04/08/21 16:50 Hct 41.5 % (42.0-52.0) L 04/08/21 16:50 MCV 97.4 fl (80-94) H 04/08/21 16:50 MCH 33.3 pg (28.0-34.0) 04/08/21 16:50 MCHC 34.2 g/dL (30.0-36.0) 04/08/21 16:50 RDW 13.2 % (12.1-15.1) 04/08/21 16:50 Plt Count 234 10^3/cmm (130-400) 04/08/21 16:50 MPV 10.2 fL (7.4-10.4) 04/08/21 16:50 Neut % (Auto) 50.0 % 04/08/21 16:50 Lymph % (Auto) 35.3 % 04/08/21 16:50 [place] % (Auto) 10.5 % 04/08/21 16:50 Eos % (Auto) 3.6 % 04/08/21 16:50 Baso % (Auto) 0.4 % 04/08/21 16:50 Neut # (Auto) 2.75 10^3/uL (1.8-7.7) 04/08/21 16:50 Lymph # (Auto) 1.9 10^3/uL (0.8-4.8) 04/08/21 16:50 [place] # (Auto) 0.6 10^3/uL (0.2-0.9) 04/08/21 16:50 Eos # (Auto) 0.2 10^3/uL (0.0-0.8) 04/08/21 16:50 Baso # (Auto) 0.0 10^3/uL (0.0-0.1) 04/08/21 16:50 Nucleated RBC % (auto) 0 % 04/08/21 16:50 Nucleated RBCs # 0.0 /100WBC 04/08/21 16:50 Sodium 140 mmol/L (136-145) 04/08/21 18:45 Potassium 3.8 mmol/L (3.5-5.1) 04/08/21 18:45 Chloride 102 mmol/L (98-107) 04/08/21 18:45 Carbon Dioxide 24 mmol/L (22-29) 04/08/21 18:45 Anion Gap 17.8 (5-19) 04/08/21 18:45 BUN 11 mg/dL (8-23) 04/08/21 18:45 Creatinine 1.0 mg/dL (0.7-1.2) 04/08/21 18:45 GFR Calculation Not Reportable 04/08/21 18:45 Glucose 84 mg/dL (65-115) 04/08/21 18:45 Calculated Osmolality 289 mOsm/kg (285-295) 04/08/21 18:45 Calcium 9.7 mg/dL (8.5-10.5) 04/08/21 18:45 Total Bilirubin 0.4 mg/dL (0.15-1.2) 04/08/21 18:45 AST 13 U/L (0-40) 04/08/21 18:45 ALT 8 U/L (0-41) 04/08/21 18:45 Alkaline Phosphatase 69 IU/L (40-130) 04/08/21 18:45 Total Protein 7.0 g/dL (6.6-8.7) 04/08/21 18:45 Albumin 4.1 g/dL (3.5-5.2) 04/08/21 18:45 Globulin 2.9 g/dL (1.3-4.6) 04/08/21 18:45 Urine Color Yellow (Yellow) 04/08/21 18:45 Urine Appearance Clear (CLEAR) 04/08/21 18:45 Urine pH 6.5 (5-7) 04/08/21 18:45 Ur Specific [place] 1.015 (1.005-1.030) 04/08/21 18:45 Urine Protein Neg (Negative) 04/08/21 18:45 Urine Glucose (UA) Norm (Normal) 04/08/21 18:45 Urine Ketones Negative (Negative) 04/08/21 18:45 Urine Blood Trace (Negative) H 04/08/21 18:45 Urine Nitrate Negative (Negative) 04/08/21 18:45 Urine Bilirubin Neg (Negative) 04/08/21 18:45 Urine Urobilinogen Norm mg/dL (Negative) 04/08/21 18:45 Ur Leukocyte Esterase Negative (Negative) 04/08/21 18:45 Urine RBC 0-4 /hpf (0-2) H 04/08/21 18:45 Urine WBC 0-4 /hpf (0-5) H 04/08/21 18:45 Ur Squamous Epith Cells 0-4 /hpf (0-5) H 04/08/21 18:45 Amorphous Sediment Not Reportable 04/08/21 18:45 Urine Bacteria Trace /hpf (NONE) 04/08/21 18:45 Discharge Plan Discharge Patient Disposition: Home Clinical Impression: Kidney stone on left side Condition: Stable Prescriptions: No Action ezetimibe [Zetia] 10 mg tablet 10 mg PO QAM Qty: 90 3RF losartan 100 mg tablet 100 mg PO QAM Qty: 90 3RF aspirin 81 mg Tablet,Delayed Release (Dr/Ec) 81 mg PO QAM 0RF vitamin E 1 cap PO QAM 0RF Flonase 50 mcg/actuation [place],Suspension 2 spray INTRANASAL DAILY 0RF diclofenac sodium 1 % Gel 2 g TOPICAL QID PRN (Reason: Pain) 0RF levothyroxine [Synthroid] 25 mcg tablet 25 mcg PO DAILY 0RF Eliquis 5 mg tablet 5 mg PO BID Qty: 30 0RF Flomax 0.4 mg capsule 0.4 mg PO DAILY Qty: 14 0RF tramadol 50 mg tablet 50 mg PO TID PRN (Reason: pain) Qty: 7 0RF Discharge Orders: Discharge ED (Routine); Ordered 04/08/21 Ordered By: Austin Barrera Referrals: Denis Nowak MD [Primary Care Provider] - Discharge Diet: Regular Discharge Activity: Increase activity as tolerated Patient Instructions: Kidney Stones (ED), How to Strain Your Urine (ED) Activity Restrictions/Additional Instructions: Follow-up with medical provider as directed. Case management should be contacting you in the next several days to set up an appointment with Dr. Vinson the urologist. Strain urine to catch stone and drink lots of fluid to stay hydrated and help pass stone. Take medications as prescribed. You can take Tylenol for any pain or fevers. Return to the ER or your medical provider if condition worsens. Please read and understand discharge instructions. If any questions, please ask. Coding Level of Care Code ED Oil Expeller Operator for Victor M Fwd Exam Comprehensive
[2021-04-08 17:35] LABS: Basophils % 0.4 %; Eosinophils # 0.2 10^3/uL (0.0-0.8); Eosinophils % 3.6 %; Hematocrit 41.5 % (42.0-52.0); Hemoglobin 14.2 g/dL (11.7-16.6); Lymphocytes # 1.9 10^3/uL (0.8-4.8); Lymphocytes % 35.3 %; Mean Corpuscular HGB Conc 34.2 g/dL (30.0-36.0); Mean Corpuscular Hemoglobin 33.3 pg (28.0-34.0); Mean Corpuscular Volume 97.4 fl (80-94); Mean Platelet Volume 10.2 fL (7.4-10.4); Monocytes # 0.6 10^3/uL (0.2-0.9); Monocytes % 10.5 %; Neutrophils # 2.75 10^3/uL (1.8-7.7); Nucleated Red Blood Cells % 0 %; Platelet Count 234 10^3/cmm (130-400); Red Blood Count 4.26 10^6/uL (4.1-5.3); Red Cell Distribution Width 13.2 % (12.1-15.1); White Blood Count 5.5 10^3/uL (4.0-10.0)
--- NOTE | 2021-04-08 18:08 | CTR_ITS ---
PROCEDURE INFORMATION: Exam: CT Abdomen And Pelvis Without Contrast Exam date and time: 04/08/2021 6:08 PM Age: 80 years old Clinical indication: Abdominal pain; Flank; Left lower quadrant (llq); Prior surgery; Surgery date: 6+ months; Surgery type: Gb; Patient HX: HX of known stone C/O worsening L groin pain; Additional info: Left lower abdominal pain, recent 5mm stone lft uvj TECHNIQUE: Imaging protocol: Computed tomography of the abdomen and pelvis without contrast. Radiation optimization: All CT scans at this facility use at least one of these dose optimization techniques: automated exposure control; mA and/or kV adjustment per patient size (includes targeted exams where dose is matched to clinical indication); or iterative reconstruction. COMPARISON: CT abdomen pelvis w con* [id number] 03/22/2021 7:52 AM RADIATION DOSE METRICS: Total DLP (mGy-cm): 1619.22 FINDINGS: Liver: Small low-attenuation lesion in the lateral right hepatic lobe stable from prior which may represent small cyst or hemangioma. Gallbladder and bile ducts: Cholecystectomy. Nondilated biliary system. Pancreas: Normal. No ductal dilation. Spleen: Normal. No splenomegaly. Adrenal glands: Normal. No mass. Kidneys and ureters: Bilateral nonobstructing kidney stones are present. The left distal ureteral stone has moved more distal than prior, but still persists at the level of the distal UVJ. The mild severity left collecting system hydroureteronephrosis has resolved. Numerous rounded right renal cortically based lesions of both kidneys stable from prior. Most of the lesions are simple in appearance. A few of the lesions are homogeneous and hyperdense, likely representing proteinaceous cysts. Stomach and bowel: Diverticulosis coli. Negative for inflammatory bowel wall thickening. Negative for bowel obstruction. Negative for bowel perforation. Appendix: No evidence of appendicitis. Intraperitoneal space: Unremarkable. No free air. No significant fluid collection. Vasculature: Calcified plaques of abdominal aorta. Negative for aneurysm. Lymph nodes: Unremarkable. No enlarged lymph nodes. Urinary bladder: Unremarkable as visualized. Reproductive: Unremarkable as visualized. Bones/joints: Rightward convex lumbar spine scoliosis.The lumbar spine demonstrates marked discogenic and apophyseal joint degenerative changes at multiple levels. Soft tissues: Unremarkable. CT/CT kidney stone [id number] IMPRESSION: 1. No additional acute abnormalities in the abdomen or pelvis are identified. 2. Left distal ureteral stone is within the distal left UVJ with slightly more distal progression since prior. The hydroureteronephrosis has now resolved.
[2021-04-08 19:12] LABS: Add Urine Microscopic? YES; Bilirubin Urine Neg (Negative); Blood Urine Trace (Negative); Glucose Urine UA Norm (Normal); Ketones Urine Negative (Negative); Leukocyte Esterase Urine Negative (Negative); Nitrate Urine Negative (Negative); Protein Urine Neg (Negative); Specific Gravity, Urine 1.015 (1.005-1.030); Urine Appearance Clear (CLEAR); Urine Color Yellow (Yellow); Urobilinogen Urine Norm (Negative); pH Urine 6.5 (5-7)
[2021-04-08 19:14] LABS: Alanine Aminotransferase 8 U/L (0-41); Albumin Level 4.1 g/dL (3.5-5.2); Alkaline Phosphatase 69 IU/L (40-130); Anion Gap 17.8 (5-19); Aspartate Amino Transferase 13 U/L (0-40); Blood Urea Nitrogen 11 mg/dL (8-23); Calcium 9.7 mg/dL (8.5-10.5); Carbon Dioxide 24 mmol/L (22-29); Chloride 102 mmol/L (98-107); Globulin 2.9 g/dL (1.3-4.6); Glucose 84 mg/dL (65-115); Osmolality Calculated 289 mOsm/kg (285-295); Potassium 3.8 mmol/L (3.5-5.1); Sodium 140 mmol/L (136-145); Total Bilirubin 0.4 mg/dL (0.15-1.2)
[2021-04-08 19:17] LABS: Add Urine Culture? No; Bacteria Urine TRACE /hpf; RBC Urine 0-4 /hpf (0-2); Squamous Epithelial Cell Urine 0-4 /hpf (0-5); WBC Urine 0-4 /hpf (0-5)
[2021-04-08] MEDS: acetaminophen 500 mg Tablet 1000 MG PO (20:14)
[2021-04-08 20:16] VITALS: BP 174/78; PULSE 64; RESP 18; TEMP 36.7; O2SAT 96
== END 2021-04-08 20:18 | disposition home or self-care (01) ==
PROVIDERS: Emergency Provider Physician Assistant; PCP Internal Medicine
DX: N20.0 Calculus of kidney (principal); Z79.82 Long term (current) use of aspirin; Z79.01 Long term (current) use of anticoagulants; I25.10 Atherosclerotic heart disease of native coronary artery without angina pectoris; I10 Essential (primary) hypertension; Z87.442 Personal history of urinary calculi; E78.5 Hyperlipidemia, unspecified; Z87.891 Personal history of nicotine dependence
CPT/HCPCS: 74176; 80053; 81001; 85025; 99283

== ENCOUNTER 2021-04-23 05:41 | Emergency (ER) | payer MEDICARE, MEDICAID, SELFPAY ==
--- NOTE | 2021-04-23 | CT_ITS ---
WS: [id number] CT ABDOMEN PELVIS TECHNIQUE: Noncontrast CT of the abdomen and pelvis with coronal and sagittal reformatted images. CLINICAL INFORMATION: HEMATURIS / HX NEPHROLITHIASIS COMPARISON: April 08, 2021 DLP: 1538.[address] scans at [facility] use at least one of these dose optimization techniques: automated e xposure control; mA and/or kV adjustment per patient size (includes targeted exams where dose is matc hed to clinical indication); or iterative reconstruction. FINDINGS: Calculus at the LEFT distal UVJ is unchanged since April 08, 2021. Calculus measures 4.3 mm. No hyd ronephrosis or ureterectasis in the LEFT kidney. No obstructing RIGHT renal or ureteral calculi. No o ther significant changes compared to previous. Lung bases are well aerated. Stable RIGHT middle lobe nodule measuring 7 mm. Additional stable nodule RIGHT lower lobe measuring 4 mm. Noncontrast liver is normal. Low-attenuation lesion RIGHT hepatic l obe likely hepatic cyst unchanged. Normal GE junction. Cholecystectomy. Normal spleen. Adrenal glands are normal. Noncontrast pancreas is normal. Bilateral renal cysts are unchanged. A few increased att enuation likely hemorrhagic or proteinaceous cysts unchanged. Normal caliber abdominal aorta. Aortic calcification. Enlarged prostate measuring 4.7 CM. Sigmoid diverticulosis. No evidence of acute diverticulitis. Lumb ar curve convex RIGHT. Advanced spondylitic changes lumbar spine. Fat-containing LEFT inguinal hernia . Normal appendix in the RIGHT lower quadrant. CT/CT kidney stone [id number] IMPRESSION: 1. 4.3 mm LEFT UVJ calculus unchanged since April 08, 2021. 2. No hydronephrosis or ureterectasis LEFT kidney. 3. No obstructing RIGHT renal or ureteral calculi. 4. No other significant changes compared to previous. 5. Nonobstructing bilateral calyceal and renal parenchymal calculi. 6. Enlarged prostate measuring 4.7 CM. 7. Sigmoid diverticulosis. Notified Glynn David DO at 04/23/2021 8:30 AM.
[2021-04-23 05:47] VITALS: BP 168/83; PULSE 123; RESP 18; TEMP 36.5; O2SAT 97; BMI 30.4
--- NOTE | 2021-04-23 06:00 | W.ED.ABDPA2 ---
HPI - Abdominal Pain General: Chief Complaint: Abdominal Pain Stated Complaint: abd pain on left side Time Seen by Provider: 04/23/21 05:57 History of Present Illness: 80 yo male present to the ER with complaints of LLQ abd pain and recent hx of left ureteral stone based on recent CT done at our facility. Patient reports abdominal pain in the left lower quadrant that began overnight woke him up around 3:30 AM. He does not notice any association with urination or bowel movements. Denies any hematochezia melena hematemesis coffee-ground emesis denies any hematuria. Has not had any vomiting or diarrhea. He is unsure if he ever passed the stone he had last month. He has also had diverticulitis in the past. He is on oral anticoagulation for atrial fibrillation he is still taking his Eliquis. He denies any fever. MD elicited complaint: abdominal pain Pertinent past history: kidney stones Onset (ago): hour(s) Location: LLQ Severity: moderate Quality: cramping Radiation: none Exacerbating factors: nothing Relieving factors: nothing Associated Symptoms: Denies anorexia, belching, bloating, change in bowel habits, change in stool character, chills, coffee ground emesis, constipation, GI cramping, diarrhea, dyspepsia, dysuria, excessive flatus, fever(s), heartburn, hematochezia, hematuria, hematemesis, fecal incontinence, loose stools, melena, nausea, poor appetite, syncope and vomiting Review of Systems Const: Denies: fever(s) or chills ENMT: Denies: throat pain, ear or mastoid pain, nasal discharge or nasal congestion Card: Denies: syncope Resp: Denies: dyspnea, productive cough or non-productive cough GI: Reports: abdominal pain; Denies: nausea, vomiting, hematemesis, coffee ground emesis, heartburn, diarrhea, constipation, bloating, GI cramping, belching, excessive flatus, fecal incontinence, change in bowel habits, change in stool character, hematochezia or melena : Denies: dysuria or hematuria Skin/Breast: Denies: rash or pruritus PFSH ED PFSH: Medical History Atherosclerotic heart disease of [place] coronary artery without angina pectoris Benign essential HTN 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 Father Dementia Denies family history of Diabetes CAD (coronary artery disease) Clotting disorder Chronic kidney disease (CKD) Suicide Anesthesia complication Bleeding disorder Lung disease Cancer Stroke Social History Smoking and tobacco status: former smoker Alcohol intake: current Alcohol intake frequency: holidays/special occasions only Housing: House Marital status: / History of recent travel: No Physical Exam Const: COMMON NORMALS: no acute distress GENERAL APPEARANCE: cooperative and comfortable ORIENTATION/CONSCIOUSNESS: Yes awake, Yes oriented to person, Yes oriented to place and Yes oriented to time HENMT: COMMON NORMALS: normocephalic and atraumatic HEAD & SCALP: normocephalic and atraumatic Neck/C-Spine: COMMON NORMALS: no JVD Resp: COMMON NORMALS: normal respiratory effort, No retractions, No use of accessory muscles and clear to auscultation bilaterally AUSCULTATION: clear to auscultation bilaterally Cardio: COMMON NORMALS: no JVD, regular rate, regular rhythm and No murmurs present (Cardio) RATE: regular rate RHYTHM: regular rhythm GI: COMMON NORMALS: No hepatosplenomegaly present AUSCULTATION: Yes normoactive bowel sounds PALPATION: Yes Tenderness to palpation present (GI) (mild) Details: LLQ, No Guarding due to palpation present (GI) and Yes No hepatosplenomegaly present Extremity: COMMON NORMALS: normal to inspection, capillary refill normal, no clubbing, cyanosis or edema, no calf tenderness and no pedal edema Neuro: SENSORIUM/ORIENTATION: Yes oriented to person, Yes oriented to place and Yes oriented to time Skin: COMMON NORMALS: no rashes or lesions noted GENERAL SKIN EXAM: no rashes or lesions noted Course Vital Signs: Vital signs: Vital Signs Temperature 97.7 F 04/23/21 05:47 Pulse Rate 92 04/23/21 08:31 Respiratory Rate 16 04/23/21 08:16 Blood Pressure 148/82 04/23/21 08:31 Pulse Oximetry 96 04/23/21 08:31 MDM - Abdominal Pain Medical Decision Making Labs and imaging reviewed patient has persistent stone at the left UVJ there is no hydronephrosis no sign of infection continue Flomax prescription written for hydrocodone as well as Zofran we will set up follow-up with Dr. Alisson issa urine Medical Records I reviewed the patient's medical records. Lab Data I reviewed the patient's lab results. : 04/23/21 05:58 04/23/21 05:58 Labs/Radiology: Laboratory Results WBC 8.7 10^3/uL (4.0-10.0) 04/23/21 05:58 RBC 4.77 10^6/uL (4.1-5.3) 04/23/21 05:58 Hgb 15.9 g/dL (11.7-16.6) 04/23/21 05:58 Hct 47.0 % (42.0-52.0) 04/23/21 05:58 MCV 98.5 fl (80-94) H 04/23/21 05:58 MCH 33.3 pg (28.0-34.0) 04/23/21 05:58 MCHC 33.8 g/dL (30.0-36.0) 04/23/21 05:58 RDW 13.2 % (12.1-15.1) 04/23/21 05:58 Plt Count 210 10^3/cmm (130-400) 04/23/21 05:58 MPV 9.5 fL (7.4-10.4) 04/23/21 05:58 Neut % (Auto) 82.2 % 04/23/21 05:58 Lymph % (Auto) 9.2 % 04/23/21 05:58 [place] % (Auto) 6.1 % 04/23/21 05:58 Eos % (Auto) 2.1 % 04/23/21 05:58 Baso % (Auto) 0.2 % 04/23/21 05:58 Neut # (Auto) 7.16 10^3/uL (1.8-7.7) 04/23/21 05:58 Lymph # (Auto) 0.8 10^3/uL (0.8-4.8) 04/23/21 05:58 [place] # (Auto) 0.5 10^3/uL (0.2-0.9) 04/23/21 05:58 Eos # (Auto) 0.2 10^3/uL (0.0-0.8) 04/23/21 05:58 Baso # (Auto) 0.0 10^3/uL (0.0-0.1) 04/23/21 05:58 Nucleated RBC % (auto) 0 % 04/23/21 05:58 Nucleated RBCs # 0.0 /100WBC 04/23/21 05:58 Sodium 139 mmol/L (136-145) 04/23/21 05:58 Potassium 4.3 mmol/L (3.5-5.1) 04/23/21 05:58 Chloride 105 mmol/L (98-107) 04/23/21 05:58 Carbon Dioxide 22 mmol/L (22-29) 04/23/21 05:58 Anion Gap 16.3 (5-19) 04/23/21 05:58 BUN 17 mg/dL (8-23) 04/23/21 05:58 Creatinine 1.1 mg/dL (0.7-1.2) 04/23/21 05:58 GFR Calculation Not Reportable 04/23/21 05:58 Glucose 118 mg/dL (65-115) H 04/23/21 05:58 Calculated Osmolality 291 mOsm/kg (285-295) 04/23/21 05:58 Lactate 1.3 mmol/L (0.5-2.2) 04/23/21 05:58 Calcium 9.5 mg/dL (8.5-10.5) 04/23/21 05:58 Total Bilirubin 0.7 mg/dL (0.15-1.2) 04/23/21 05:58 AST 15 U/L (0-40) 04/23/21 05:58 ALT 9 U/L (0-41) 04/23/21 05:58 Alkaline Phosphatase 75 IU/L (40-130) 04/23/21 05:58 C-Reactive Protein 5.5 mg/L (0.0-4.9) H 04/23/21 05:58 Total Protein 8.1 g/dL (6.6-8.7) 04/23/21 05:58 Albumin 4.4 g/dL (3.5-5.2) 04/23/21 05:58 Globulin 3.7 g/dL (1.3-4.6) 04/23/21 05:58 Lipase 36 U/L (13-60) 04/23/21 05:58 Urine Color Yellow (Yellow) 04/23/21 06:30 Urine Appearance Sl hazy (CLEAR) 04/23/21 06:30 Urine pH 5 (5-7) 04/23/21 06:30 Ur Specific [place] 1.020 (1.005-1.030) 04/23/21 06:30 Urine Protein 1+ (Negative) H 04/23/21 06:30 Urine Glucose (UA) Norm (Normal) 04/23/21 06:30 Urine Ketones 1+ (Negative) H 04/23/21 06:30 Urine Blood 3+ (Negative) H 04/23/21 06:30 Urine Nitrate Negative (Negative) 04/23/21 06:30 Urine Bilirubin 1+ (Negative) H 04/23/21 06:30 Urine Urobilinogen 1 mg/dL (Negative) H 04/23/21 06:30 Ur Leukocyte Esterase Negative (Negative) 04/23/21 06:30 Urine RBC 5-10 /hpf (0-2) H 04/23/21 06:30 Urine WBC 5-10 /hpf (0-5) H 04/23/21 06:30 Ur Squamous Epith Cells 0-4 /hpf (0-5) H 04/23/21 06:30 Amorphous Sediment Not Reportable 04/23/21 06:30 Urine Bacteria Trace /hpf (NONE) 04/23/21 06:30 Hyaline Casts 15-25 /lpf H 04/23/21 06:30 Urine Mucus 2+ /hpf 04/23/21 06:30 Discharge Plan Discharge Patient Disposition: Home Clinical Impression: Left nephrolithiasis Condition: Stable Prescriptions: New hydrocodone-acetaminophen 5-325 mg tablet 1 tab PO Q6H PRN (Reason: pain) Qty: 15 0RF Zofran 4 mg tablet 4 mg PO Q6H PRN (Reason: nausea and vomiting) Qty: 15 0RF No Action ezetimibe [Zetia] 10 mg tablet 10 mg PO QAM Qty: 90 3RF losartan 100 mg tablet 100 mg PO QAM Qty: 90 3RF aspirin 81 mg Tablet,Delayed Release (Dr/Ec) 81 mg PO QAM 0RF vitamin E 1 cap PO QAM 0RF Flonase 50 mcg/actuation [place],Suspension 2 spray INTRANASAL DAILY 0RF diclofenac sodium 1 % Gel 2 g TOPICAL QID PRN (Reason: Pain) 0RF levothyroxine [Synthroid] 25 mcg tablet 25 mcg PO DAILY 0RF Eliquis 5 mg tablet 5 mg PO BID Qty: 30 0RF Flomax 0.4 mg capsule 0.4 mg PO DAILY Qty: 14 0RF tramadol 50 mg tablet 50 mg PO TID PRN (Reason: pain) Qty: 7 0RF Discharge Orders: Discharge ED (Routine); Ordered 04/23/21 Ordered By: Glynn David Referrals: Denis Nowak MD [Primary Care Provider] - Discharge Diet: Usual diet Discharge Activity: Resume usual activity Patient Instructions: Opioid Safety Activity Restrictions/Additional Instructions: Strain urine. global logistics manager will call to make follow-up appointment with Dr. Vinson's office. Coding Level of Care Code ED Viscose Cellar Charge Hand for Victor M Fwd Exam Comprehensive
--- NOTE | 2021-04-23 06:03 | XR_ITS ---
WS: [id number] ABDOMEN KUB CLINICAL INFORMATION: Renal/ureteral calculi. FINDINGS: 4.3 mm LEFT UVJ calculus better seen on the concurrent CT. Bilateral renal parenchymal calculi. Mariel cystectomy clips. Advanced spondylitic changes lumbar spine with lumbar scoliosis convex RIGHT. XR/XR KUB portable [id number] Impression: 4.3 mm LEFT UVJ calculus better seen on the concurrent CT
[2021-04-23 06:05] LABS: Basophils % 0.2 %; Eosinophils # 0.2 10^3/uL (0.0-0.8); Eosinophils % 2.1 %; Hemoglobin 15.9 g/dL (11.7-16.6); Lymphocytes # 0.8 10^3/uL (0.8-4.8); Lymphocytes % 9.2 %; Mean Corpuscular HGB Conc 33.8 g/dL (30.0-36.0); Mean Corpuscular Hemoglobin 33.3 pg (28.0-34.0); Mean Corpuscular Volume 98.5 fl (80-94); Mean Platelet Volume 9.5 fL (7.4-10.4); Monocytes # 0.5 10^3/uL (0.2-0.9); Monocytes % 6.1 %; Neutrophils # 7.16 10^3/uL (1.8-7.7); Neutrophils % 82.2 %; Nucleated Red Blood Cells % 0 %; Platelet Count 210 10^3/cmm (130-400); Red Blood Count 4.77 10^6/uL (4.1-5.3); Red Cell Distribution Width 13.2 % (12.1-15.1); White Blood Count 8.7 10^3/uL (4.0-10.0)
[2021-04-23 06:21] VITALS: RESP 18
[2021-04-23] MEDS: morphine 4 mg/mL SDV 1 mL IVP (06:21)
[2021-04-23] MEDS: ondansetron 2 mg/ML SDV 2 mL 4 MG IVP (06:23)
[2021-04-23 06:29] LABS: Lactate (Lactic Acid level) 1.3 mmol/L (0.5-2.2)
[2021-04-23 06:36] LABS: Alanine Aminotransferase 9 U/L (0-41); Albumin Level 4.4 g/dL (3.5-5.2); Alkaline Phosphatase 75 IU/L (40-130); Anion Gap 16.3 (5-19); Aspartate Amino Transferase 15 U/L (0-40); Blood Urea Nitrogen 17 mg/dL (8-23); C Reactive Protein 5.5 mg/L (0.0-4.9); Calcium 9.5 mg/dL (8.5-10.5); Carbon Dioxide 22 mmol/L (22-29); Chloride 105 mmol/L (98-107); Globulin 3.7 g/dL (1.3-4.6); Glucose 118 mg/dL (65-115); Lipase 36 U/L (13-60); Osmolality Calculated 291 mOsm/kg (285-295); Potassium 4.3 mmol/L (3.5-5.1); Sodium 139 mmol/L (136-145); Total Bilirubin 0.7 mg/dL (0.15-1.2); Total Protein 8.1 g/dL (6.6-8.7)
[2021-04-23 06:58] LABS: Bilirubin Urine 1+ (Negative); Blood Urine 3+ (Negative); Glucose Urine UA Norm (Normal); Ketones Urine 1+ (Negative); Nitrate Urine Negative (Negative); Protein Urine 1+ (Negative); Urine Appearance SL Hazy (CLEAR); Urine Color Yellow (Yellow); Urobilinogen Urine 1 mg/dL (Negative); pH Urine 5 (5-7)
[2021-04-23 06:59] LABS: Add Urine Microscopic? YES; Leukocyte Esterase Urine Negative (Negative)
[2021-04-23 07:11] LABS: Bacteria Urine TRACE /hpf; Mucus Urine 2+ /hpf; Squamous Epithelial Cell Urine 0-4 /hpf (0-5)
[2021-04-23 07:12] LABS: Add Urine Culture? No; Hyaline Casts Urine 15-25 /lpf
[2021-04-23 07:30] VITALS: BP 173/89; PULSE 84; RESP 18; O2SAT 96
[2021-04-23 08:16] VITALS: BP 132/87; PULSE 65; RESP 16; O2SAT 99
[2021-04-23 08:31] VITALS: BP 148/82; PULSE 92; O2SAT 96
[2021-04-23 08:55] VITALS: BP 148/82; PULSE 94; O2SAT 96
--- NOTE | 2021-04-24 13:53 | DCPLANNER ---
Addendum entered by Rianna Cardenas 05/04/21 13:12: Patient had a follow up appointment scheduled for 04.30.[address] vinson - patient did attend appointment. Addendum entered by Rianna Cardenas 04/27/21 14:23: Patient has a follow up appointment scheduled for Friday, April 30, 2021 at 8:[address] Vinson. Clinic will call patient with appointment information. Original Note: food and beverage assistant manager had message to schedule a follow up appointment for patient with Dr. Vinson. food and beverage assistant manager emailed patients information to Lopez Alcala and Julie at the office of Dr. Vinson. Patients information will be printed and reviewed. Clinic will call patient with appointment information.
== END 2021-04-23 08:57 | disposition home or self-care (01) ==
PROVIDERS: Emergency Medicine; Emergency Provider Family Medicine; PCP Internal Medicine
DX: N20.0 Calculus of kidney (principal); Z79.82 Long term (current) use of aspirin; Z79.01 Long term (current) use of anticoagulants; I25.10 Atherosclerotic heart disease of native coronary artery without angina pectoris; I10 Essential (primary) hypertension; Z87.442 Personal history of urinary calculi; E78.5 Hyperlipidemia, unspecified; Z87.891 Personal history of nicotine dependence
CPT/HCPCS: 74018; 74176; 80053; 81001; 83605; 83690; 85025; 86140; 96374; 96375; 99284; J2270; J2405

== ENCOUNTER 2021-04-30 07:21 | Outpatient (CLI) | payer MEDICARE, MEDICAID, SELFPAY ==
--- NOTE | 2021-04-30 07:27 | XR_ITS ---
WS: [id number] Exam: XR KUB [id number] Date/Time of Exam: 04/30/2021 7:30 AM Reason For Exam: NEPHROLITHAISIS Comparison 04/23/2021. No sign of bowel obstruction or free air. No sign of organ enlargement. Small calcifications are note d over both kidneys suggesting renal stones. Moderately advanced degenerative change and dextroscolio sis lumbar spine. XR/XR KUB [id number] IMPRESSION: 1. Small calcification superimpose both kidneys suggesting renal lithiasis. 2. No acute abdominal process identified. 3. Nonspecific pelvic calcifications unchanged.
== END 2021-04-30 07:22 | disposition home or self-care (01) ==
PROVIDERS: PCP Internal Medicine; Visit Provider Urology
DX: N20.0 Calculus of kidney (principal)
CPT/HCPCS: 74018; 81003

== ENCOUNTER 2021-05-08 07:07 | Outpatient (CLI) | payer MEDICARE, MEDICAID, SELFPAY ==
--- NOTE | 2021-05-08 07:15 | XRR_ITS ---
PROCEDURE INFORMATION: Exam: XR Abdomen Exam date and time: 05/08/2021 7:15 AM Age: 80 years old Clinical indication: Condition or disease; Kidney or ureter condition; Calculus (stone) in ureter; Additional info: Left ureteral calculus, kub @ [facility] on 05/08/21 @ 0715. Appt to follow TECHNIQUE: Imaging protocol: XR of the abdomen. Views: Frontal supine view of the abdomen. 1 View. COMPARISON: CR XR KUB [id number] 04/30/2021 7:31 AM FINDINGS: Gastrointestinal tract: Normal. No bowel dilation. Organs: Multiple bilateral renal calculi throughout the right kidney in the in the lower pole in the left kidney which are not significantly changed from prior studies. Bones/joints: Multilevel DJD throughout the visualized thoracolumbar spine. XR/XR KUB [id number] IMPRESSION: Similar appearance of bilateral renal calculi.
== END 2021-05-08 07:08 | disposition home or self-care (01) ==
LOC: RAD 07:08
PROVIDERS: PCP Internal Medicine; Visit Provider Urology
DX: N20.1 Calculus of ureter (principal); N20.0 Calculus of kidney
CPT/HCPCS: 74018; 81003

== ENCOUNTER 2021-05-13 07:34 | Emergency (ER) | payer MEDICARE, MEDICAID, SELFPAY ==
[2021-05-13 06:47] VITALS: BP 254/112; PULSE 67; RESP 20; TEMP 36.7; O2SAT 95; BMI 30.4
--- NOTE | 2021-05-13 06:51 | CTR_ITS ---
PROCEDURE INFORMATION: Exam: CT Head Without Contrast Exam date and time: 05/13/2021 6:51 AM Age: 80 years old Clinical indication: Pain; Dizziness; Headache not specified; Additional info: COLLINS TECHNIQUE: Imaging protocol: Computed tomography of the head without contrast. Radiation optimization: All CT scans at this facility use at least one of these dose optimization techniques: automated exposure control; mA and/or kV adjustment per patient size (includes targeted exams where dose is matched to clinical indication); or iterative reconstruction. COMPARISON: CT head wo con* [id number] 05/26/2020 7:47 PM RADIATION DOSE METRICS: Total DLP (mGy-cm): 991.41 FINDINGS: Brain: There is no acute intracranial hemorrhage or mass effect. Moderate diffuse volume loss is within the range of normal for patient age. There are small vessel ischemic changes within the periventricular and subcortical white matter, but the normal hammer-white matter delineation is maintained. Cerebral ventricles: Prominence of the ventricular system is commensurate with volume loss. Paranasal sinuses: Visualized sinuses are unremarkable. No fluid levels. Mastoid air cells: Visualized mastoid air cells are well aerated. Bones/joints: Unremarkable. No acute fracture. Soft tissues: Unremarkable. CT/CT head wo con* [id number] IMPRESSION: No acute hemorrhage or edema.
--- NOTE | 2021-05-13 06:51 | XRR_ITS ---
PROCEDURE INFORMATION: Exam: XR Chest Exam date and time: 05/13/2021 6:51 AM Age: 80 years old Clinical indication: Pain; Chest pressure; Additional info: Cp TECHNIQUE: Imaging protocol: XR of the chest. Views: 1 view. COMPARISON: CR XR chest 1V portable [id number] 02/17/2021 2:15 PM FINDINGS: Lungs: Unremarkable. No consolidation. Pleural spaces: Unremarkable. No pleural effusion. No pneumothorax. Heart/Mediastinum: Unremarkable. No cardiomegaly. Bones/joints: Unremarkable. XR/XR chest 1V portable [id number] IMPRESSION: No acute findings.
--- NOTE | 2021-05-13 06:51 | ECG_ITS ---
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 Measurements Intervals [place] Rate: 69 P: 77 IN: 176 QRS: -21 QRSD: 90 T: 6 QT: 377 QTc: 406 Interpretive Statements SINUS RHYTHM BORDERLINE LEFT AXIS DEVIATION [QRS AXIS < -20] LOW QRS VOLTAGE IN PRECORDIAL LEADS [QRS DEFLECTION < 1.0 mV IN CHEST LEADS] Compared to ECG 02/17/2021 17:01:49 Atrial fibrillation no longer present Electronically Signed On 05-13-2021 12:02:17 ENERGY TECHNICIAN by Anna Soto M.D. [id number]
[2021-05-13 07:00] VITALS: BP 254/112; PULSE 65; RESP 16; O2SAT 95
[2021-05-13] MEDS: labetalol 5 mg/mL SDV 20mL 10 MG IVP ×3 (07:02→08:31)
[2021-05-13] MEDS: meclizine 25 mg tablet 50 MG PO (07:03)
--- NOTE | 2021-05-13 07:20 | PC.NURSE ---
WHILE AT DOORWAY PT IS IN NAD. PT IS AWAKE AND ALERT.
--- NOTE | 2021-05-13 07:25 | PC.NURSE ---
PT PLACED ON CONTINUOUS SPO2, NIBP, AND CM.
[2021-05-13 07:33] LABS: Basophils % 0.6 %; Eosinophils # 0.2 10^3/uL (0.0-0.8); Eosinophils % 3.2 %; Hematocrit 43.4 % (42.0-52.0); Hemoglobin 14.6 g/dL (11.7-16.6); Lymphocytes # 1.5 10^3/uL (0.8-4.8); Lymphocytes % 30.4 %; Mean Corpuscular HGB Conc 33.6 g/dL (30.0-36.0); Mean Corpuscular Hemoglobin 32.3 pg (28.0-34.0); Mean Platelet Volume 10.1 fL (7.4-10.4); Monocytes # 0.6 10^3/uL (0.2-0.9); Monocytes % 12.5 %; Neutrophils # 2.63 10^3/uL (1.8-7.7); Neutrophils % 53.1 %; Nucleated Red Blood Cells % 0 %; Platelet Count 229 10^3/cmm (130-400); Red Blood Count 4.52 10^6/uL (4.1-5.3)
--- NOTE | 2021-05-13 07:37 | ED_ITS ---
HPI - Dizziness General: Chief Complaint: Dizziness Stated Complaint: DIZZY; HNT Source: patient and EMS Mode of arrival: EMS Limitations: no limitations History of Present Illness: HPI Narrative: 80-year-old male states that when he woke up this morning it felt very dizzy. He states he just felt like he was going to pass out he states he did not get out of bed due to feeling like he may fall. He denies any feeling of the room spinning denies a headache he is very hypertensive. States he has not taken his hypertensive meds this morning blood pressure is 254/112 denies chest pain or shortness of breath. Associated symptoms: Denies chest pain, chills, headache(s), nausea or vomiting Review of Systems Const: Denies: fever(s), chills, body aches or change in appetite Eyes: Denies: blurry vision or eye discomfort ENMT: Denies: throat pain or dental pain Card: Denies: chest pain Resp: Denies: dyspnea GI: Denies: abdominal pain, nausea, vomiting or diarrhea : Denies: dysuria Musc: Denies: neck pain or back pain Skin/Breast: Denies: rash Neuro: Reports: dizziness; Denies: headache(s) Psych: Denies: depression Daniel/Lymph: Denies: easy bruising All/Imm: Denies: urticaria PFSH ED PFSH: Medical History Atherosclerotic heart disease of [place] coronary artery without angina pectoris Benign essential HTN Calculus of kidney with calculus of ureter Chronic episodic atrial fibrillation Dyslipidemia (high LDL; low HDL) Fibromyalgia GERD (gastroesophageal reflux disease) History of atrial fibrillation History of colon polyps Insomnia Left ureteral calculus Lumbar disc disease Renal mass Surgical History History of cardiac cath History of cholecystectomy History of colonoscopy History of shoulder surgery Family History Brother No problems noted. Father , at age 93 Dementia Parkinsons Mother , at age 75 No problems noted. Denies family history of Diabetes CAD (coronary artery disease) Clotting disorder Chronic kidney disease (CKD) Suicide Anesthesia complication Bleeding disorder Lung disease Cancer Stroke Social History Smoking and tobacco status: never smoked Alcohol intake: current Alcohol intake frequency: holidays/special occasions only Housing: House Marital status: / Current occupational status: retired History of recent travel: No Physical Exam Const: COMMON NORMALS: no acute distress, patient oriented x3 and healthy appearing HENMT: COMMON NORMALS: normocephalic and atraumatic HEAD & SCALP: normocephalic and atraumatic Eye: COMMON NORMALS: Equal, round and reactive pupils present and EOMs intact bilaterally PUPIL: Yes Equal, round and reactive pupils present Neck/C-Spine: COMMON NORMALS: full ROM and supple Chest: COMMONS NORMALS: normal inspection of the chest and normal palpation of entire chest wall Resp: COMMON NORMALS: normal respiratory effort, No retractions, No use of accessory muscles and clear to auscultation bilaterally AUSCULTATION: clear to auscultation bilaterally Cardio: COMMON NORMALS: regular rate, regular rhythm and No murmurs present (Cardio) RATE: regular rate RHYTHM: regular rhythm GI: COMMON NORMALS: Normal to inspection, nondistended, normoactive bowel sounds present, Soft to palpation, non-tender and no masses PALPATION: Yes Soft to palpation Extremity: COMMON NORMALS: normal to inspection and full ROM Neuro: COMMON NORMALS: patient oriented x3, moves all extremities and no focal motor deficits Psych: COMMON NORMALS: mental status grossly normal, Normal thought process present and cooperative THOUGHT PROCESS: Normal thought process present Skin: COMMON NORMALS: no rashes or lesions noted and no wounds GENERAL SKIN EXAM: no rashes or lesions noted Course Vital Signs: Vital signs: Vital Signs Temperature 98.1 F 05/13/21 06:47 Pulse Rate 63 05/13/21 09:32 Respiratory Rate 12 05/13/21 09:32 Blood Pressure 180/79 05/13/21 09:32 Pulse Oximetry 96 05/13/21 09:32 MDM - Dizziness Medical Decision Making Patient presents here with dizziness likely from his high blood pressure his blood pressure here is improved and he feels much improved he is ambulating the halls here with no difficulty. Went and spoke to him he did not take his blood pressure medicine yet this morning is to take it as prescribed he is requesting to go home I feel he is stable for discharge he is to follow-up his PCP this week and monitor his blood pressure closely he understands agrees to plan. Lab Data : 05/13/21 06:50 05/13/21 08:35 Radiology Impressions Chest X-Ray 05/13/21 06:51 IMPRESSION: No acute findings. Head CT 05/13/21 06:51 IMPRESSION: No acute hemorrhage or edema. Laboratory Results WBC 5.0 10^3/uL (4.0-10.0) 05/13/21 06:50 RBC 4.52 10^6/uL (4.1-5.3) 05/13/21 06:50 Hgb 14.6 g/dL (11.7-16.6) 05/13/21 06:50 Hct 43.4 % (42.0-52.0) 05/13/21 06:50 MCV 96.0 fl (80-94) H 05/13/21 06:50 MCH 32.3 pg (28.0-34.0) 05/13/21 06:50 MCHC 33.6 g/dL (30.0-36.0) 05/13/21 06:50 RDW 13.0 % (12.1-15.1) 05/13/21 06:50 Plt Count 229 10^3/cmm (130-400) 05/13/21 06:50 MPV 10.1 fL (7.4-10.4) 05/13/21 06:50 Neut % (Auto) 53.1 % 05/13/21 06:50 Lymph % (Auto) 30.4 % 05/13/21 06:50 [place] % (Auto) 12.5 % 05/13/21 06:50 Eos % (Auto) 3.2 % 05/13/21 06:50 Baso % (Auto) 0.6 % 05/13/21 06:50 Neut # (Auto) 2.63 10^3/uL (1.8-7.7) 05/13/21 06:50 Lymph # (Auto) 1.5 10^3/uL (0.8-4.8) 05/13/21 06:50 [place] # (Auto) 0.6 10^3/uL (0.2-0.9) 05/13/21 06:50 Eos # (Auto) 0.2 10^3/uL (0.0-0.8) 05/13/21 06:50 Baso # (Auto) 0.0 10^3/uL (0.0-0.1) 05/13/21 06:50 Nucleated RBC % (auto) 0 % 05/13/21 06:50 Nucleated RBCs # 0.0 /100WBC 05/13/21 06:50 PT 12.40 SECONDS (12.1-14.9) 05/13/21 06:50 INR 0.90 (0.8-1.2) 05/13/21 06:50 Sodium 137 mmol/L (136-145) 05/13/21 08:35 Potassium 3.9 mmol/L (3.5-5.1) 05/13/21 08:35 Chloride 101 mmol/L (98-107) 05/13/21 08:35 Carbon Dioxide 25 mmol/L (22-29) 05/13/21 08:35 Anion Gap 14.9 (5-19) 05/13/21 08:35 BUN 9 mg/dL (8-23) 05/13/21 08:35 Creatinine 0.9 mg/dL (0.7-1.2) 05/13/21 08:35 GFR Calculation Not Reportable 05/13/21 08:35 Glucose 111 mg/dL (65-115) 05/13/21 08:35 Calculated Osmolality Cancelled 05/13/21 06:50 Calcium 8.6 mg/dL (8.5-10.5) 05/13/21 08:35 Total Bilirubin 0.6 mg/dL (0.15-1.2) 05/13/21 08:35 AST 13 U/L (0-40) 05/13/21 08:35 ALT 8 U/L (0-41) 05/13/21 08:35 Alkaline Phosphatase 69 IU/L (40-130) 05/13/21 08:35 Troponin T Baseline 8 ng/L (0-15) 05/13/21 08:29 Total Protein 6.8 g/dL (6.6-8.7) 05/13/21 08:35 Albumin 4.0 g/dL (3.5-5.2) 05/13/21 08:35 Globulin 2.8 g/dL (1.3-4.6) 05/13/21 08:35 EKG Data EKG 1: I personally reviewed and interpreted this EKG as follows: EKG interpretation date: 05/13/21 EKG interpretation time: 06:56 Interpretation: nsr hr [address] or t wave abnormalities qrs 90 qtc 396 EKG 2: I personally reviewed and interpreted this EKG as follows: EKG interpretation date: 05/13/21 EKG interpretation time: 10:02 Interpretation: nsr hr [address] or t wave abnormalities qrs 92 qtc 409 Discharge Plan Discharge Patient Disposition: Home Clinical Impression: Benign essential HTN, Dizziness Condition: Stable Prescriptions: New Antivert 50 mg tablet 50 mg PO BID PRN (Reason: dizziness) Qty: 20 0RF No Action tamsulosin 0.4 mg capsule 0.4 mg PO .at bedtime Qty: 30 0RF ezetimibe [Zetia] 10 mg tablet 10 mg PO QAM Qty: 90 3RF losartan 100 mg tablet 100 mg PO QAM Qty: 90 3RF aspirin 81 mg Tablet,Delayed Release (Dr/Ec) 81 mg PO QAM 0RF vitamin E 1 cap PO QAM 0RF Flonase 50 mcg/actuation [place],Suspension 2 spray INTRANASAL DAILY 0RF diclofenac sodium 1 % Gel 2 g TOPICAL QID PRN (Reason: Pain) 0RF Eliquis 5 mg tablet 5 mg PO BID Qty: 30 0RF Discharge Orders: Discharge ED (Routine); Ordered 05/13/21 Ordered By: Chaz Lopez Referrals: Denis Nowak MD [Primary Care Provider] - 1-3 days Discharge Diet: Advance as tolerated Discharge Activity: Resume usual activity Patient Instructions: Hypertension (ED), Dizziness (ED) Coding Level of Care Code ED Student Career Development Specialist for Chg Fwd Exam Comprehensive
[2021-05-13 08:39] VITALS: BP 170/80; PULSE 67; RESP 18; O2SAT 92
--- NOTE | 2021-05-13 08:51 | ECG_ITS ---
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 Measurements Intervals [place] Rate: 64 P: 1 NC: 155 QRS: -16 QRSD: 92 T: 7 QT: 399 QTc: 415 Interpretive Statements SINUS RHYTHM LOW QRS VOLTAGE IN PRECORDIAL LEADS [QRS DEFLECTION < 1.0 mV IN CHEST LEADS] Compared to ECG 05/13/2021 06:56:09 No significant changes Electronically Signed On 05-14-2021 16:22:52 MOBILITY MANAGER by Anna Soto M.D. [id number]
[2021-05-13 09:10] VITALS: BP 156/90; PULSE 66; RESP 12; O2SAT 96
[2021-05-13 09:28] LABS: Troponin(5th) Baseline 8 ng/L (0-15)
[2021-05-13 09:32] VITALS: BP 180/79; PULSE 63; RESP 12; O2SAT 96
[2021-05-13 10:03] LABS: Alanine Aminotransferase 8 U/L (0-41); Alkaline Phosphatase 69 IU/L (40-130); Anion Gap 14.9 (5-19); Aspartate Amino Transferase 13 U/L (0-40); Blood Urea Nitrogen 9 mg/dL (8-23); Calcium 8.6 mg/dL (8.5-10.5); Carbon Dioxide 25 mmol/L (22-29); Chloride 101 mmol/L (98-107); Creatinine Clr Calc Pharmacy 69.2126; Globulin 2.8 g/dL (1.3-4.6); Glucose 111 mg/dL (65-115); Osmolality Calculated 283 mOsm/kg (285-295); Potassium 3.9 mmol/L (3.5-5.1); Sodium 137 mmol/L (136-145); Total Bilirubin 0.6 mg/dL (0.15-1.2); Total Protein 6.8 g/dL (6.6-8.7)
--- NOTE | 2021-05-13 10:17 | PC.NURSE ---
Pt ambulated at this time. Pt ambulated without assistance.
== END 2021-05-13 10:24 | disposition home or self-care (01) ==
PROVIDERS: Emergency Provider Emergency Medicine; PCP Internal Medicine
DX: R42 Dizziness and giddiness (principal); I10 Essential (primary) hypertension; Z79.82 Long term (current) use of aspirin; Z79.01 Long term (current) use of anticoagulants; I25.10 Atherosclerotic heart disease of native coronary artery without angina pectoris; E78.5 Hyperlipidemia, unspecified
CPT/HCPCS: 70450; 71045; 80053; 84484; 85025; 85610; 93005; 96374; 96376; 99284; J3490; J8597

== ENCOUNTER 2021-06-09 19:15 | Emergency (ER) | payer MEDICARE, MEDICAID, SELFPAY ==
[2021-06-09 19:23] VITALS: BP 184/94; PULSE 87; RESP 18; TEMP 36.9; O2SAT 97; BMI 30.4
--- NOTE | 2021-06-09 19:33 | ECG_ITS ---
[facility] Test Date: 2021-06-09 Pat Name: David Orozco Department: Room: Gender: Male Moving Consultant: : 1940 Requested By: Wisam Avila Order Number: [id number] Jessica MD: Js Hendricks M.D. Measurements Intervals [place] Rate: 59 P: 14 ND: 141 QRS: -15 QRSD: 86 T: 31 QT: 400 QTc: 398 Interpretive Statements SINUS BRADYCARDIA Compared to ECG 06/09/2021 21:23:40 Sinus rhythm no longer present Electronically Signed On 06-10-2021 9:37:38 CDT by Js Hendricks M.D. [id number]
[2021-06-09 20:09] LABS: Basophils % 0.5 %; Eosinophils # 0.2 10^3/uL (0.0-0.8); Eosinophils % 2.7 %; Hematocrit 45.5 % (42.0-52.0); Hemoglobin 15.3 g/dL (11.7-16.6); Lymphocytes % 32.8 %; Mean Corpuscular HGB Conc 33.6 g/dL (30.0-36.0); Mean Corpuscular Hemoglobin 32.3 pg (28.0-34.0); Mean Corpuscular Volume 96.2 fl (80-94); Mean Platelet Volume 9.7 fL (7.4-10.4); Monocytes # 0.8 10^3/uL (0.2-0.9); Monocytes % 12.1 %; Neutrophils # 3.21 10^3/uL (1.8-7.7); Neutrophils % 51.6 %; Nucleated Red Blood Cells % 0 %; Platelet Count 229 10^3/cmm (130-400); Red Blood Count 4.73 10^6/uL (4.1-5.3); Red Cell Distribution Width 12.7 % (12.1-15.1); White Blood Count 6.2 10^3/uL (4.0-10.0)
--- NOTE | 2021-06-09 20:32 | W.ED.GENADLT ---
HPI - General Adult General: Chief complaint: General Medical Stated complaint: Pain Between Should blades\Dizzy Time Seen by Provider: 06/09/21 20:32 History of Present Illness: Mr. Orozco is an 80-year-old gentleman with significant past medical history of hypertension, hyperlipidemia, history of atrial fibrillation on anticoagulation who presents to the emergency department due to discomfort in his mid back between the shoulder blades. He also noticed elevated blood pressure. Symptom onset was at approximately noon earlier today. He denies specific provoking factors and was not doing strenuous activity during that time. At worst intensity was approximately 8 out of 10 and currently 3 out of 10. He did note mild lightheadedness. He does not recall how high his blood pressure was. Denies other recent changes in health or frequent episodes in past. And HPI Onset (ago): hour(s) Location: back Radiation: back Severity: mild Quality: other Relieving factors: none Exacerbating factors: none Review of Systems General: Reports: 10 or more systems reviewed and unremarkable except in HPI and below PFSH ED PFSH: Medical History Atherosclerotic heart disease of [place] coronary artery without angina pectoris Benign essential HTN Calculus of kidney with calculus of ureter Chronic episodic atrial fibrillation Dyslipidemia (high LDL; low HDL) Fibromyalgia GERD (gastroesophageal reflux disease) History of atrial fibrillation History of colon polyps Insomnia Left ureteral calculus Lumbar disc disease Renal mass Surgical History History of cardiac cath History of cholecystectomy History of colonoscopy History of shoulder surgery Family History Brother No problems noted. Father , at age 93 Dementia Parkinsons Mother , at age 75 No problems noted. Denies family history of Diabetes CAD (coronary artery disease) Clotting disorder Chronic kidney disease (CKD) Suicide Anesthesia complication Bleeding disorder Lung disease Cancer Stroke Social History Smoking and tobacco status: never smoked Alcohol intake: current Alcohol intake frequency: holidays/special occasions only Housing: House Marital status: / Current occupational status: retired History of recent travel: No Physical Exam Const: COMMON NORMALS: alert GENERAL APPEARANCE: cooperative and well developed HENMT: COMMON NORMALS: normocephalic and atraumatic HEAD & SCALP: normocephalic and atraumatic Eye: COMMON NORMALS: conjunctivae normal CONJUNCTIVA: Yes conjunctivae normal SCLERA: sclerae normal Neck/C-Spine: COMMON NORMALS: supple GENERAL: Yes trachea midline Resp: COMMON NORMALS: clear to auscultation bilaterally EFFORT & INSPECTION: Yes able to speak in complete sentences AUSCULTATION: clear to auscultation bilaterally Cardio: COMMON NORMALS: regular rate and regular rhythm RATE: regular rate RHYTHM: regular rhythm GI: COMMON NORMALS: Soft to palpation PALPATION: Yes Soft to palpation and No Tenderness to palpation present (GI) PERCUSSION: normal to percussion Extremity: GENERAL: Yes normal exam except as noted and No edema Neuro: COMMON NORMALS: moves all extremities SENSORIUM/ORIENTATION: Yes alert and No Orientation impaired Psych: COMMON NORMALS: mental status grossly normal and Normal thought process present THOUGHT PROCESS: Normal thought process present Course ED course: - Patient was seen and evaluated by me at bedside - Patient placed on cardiac monitors, IV access obtained - Initial evaluation notable for exam as above - Labs and xrays personally interpreted by me. EKG from 2122 and 2225 interpreted by me by me. Mild nonspecific ST segment abnormalities. No STEMI. -Symptom treatment noted - Labs notable for no acute hematologic or metabolic abnormality to explain patient's symptoms. Delta troponin is negative. - Imaging notable for no lobar consolidation or pneumothorax. Prior CT imaging reviewed, patient had CT chest from 02/15/2021 which showed unremarkable aorta. - Upon serial reexamination after treatment the patient was improved - Based on patient history, evaluation, and testing as interpreted the most likely cause of the patient's condition is back pain and hypertension of unclear etiology - The results of ED evaluation were discussed with the patient including prescriptions and/or symptomatic cares (if applicable) including appropriate and responsible use, followup plan, and return precautions. The patient verbalized understanding and felt safe for discharge. - Patient discharged in satisfactory condition. Note: Click bubbles or prepopulated naranjo in note writing are used for assistance with data collection and billing and are inherently more limited than narrative and other text portions of this note. Please use narrative for additional clinical history and defer to narrative/free test for any case of contradictory information. If information appears in only free text or click bubble it should be considered present or absent as reported. Please contact note speech writer for clarifications of clinical information or contradictory information. MDM is a brief summary, contradictory or erroneous seeming information should be clarified and full note should be reviewed. Recent CTs Vital Signs: Vital signs: Vital Signs Temperature 98.4 F 06/09/21 19:23 Pulse Rate 61 06/09/21 23:26 Respiratory Rate 17 06/09/21 23:26 Blood Pressure 195/91 06/09/21 23:26 Pulse Oximetry 96 06/09/21 23:26 MDM - General Adult Medical Decision Making 80-year-old gentleman presenting with back pain and high blood pressure. No acute abnormality identified on ED evaluation. Satisfactory for outpatient management. Will add amlodipine to antihypertensive regimen. Medical Records I reviewed the patient's medical records. Lab Data I reviewed the patient's lab results. : 06/09/21 19:59 06/09/21 19:59 Radiology Impressions Chest X-Ray 06/09/21 21:03 IMPRESSION: No acute findings. Laboratory Results WBC 6.2 10^3/uL (4.0-10.0) 06/09/21 19:59 RBC 4.73 10^6/uL (4.1-5.3) 06/09/21 19:59 Hgb 15.3 g/dL (11.7-16.6) 06/09/21 19:59 Hct 45.5 % (42.0-52.0) 06/09/21 19:59 MCV 96.2 fl (80-94) H 06/09/21 19:59 MCH 32.3 pg (28.0-34.0) 06/09/21 19:59 MCHC 33.6 g/dL (30.0-36.0) 06/09/21 19:59 RDW 12.7 % (12.1-15.1) 06/09/21 19:59 Plt Count 229 10^3/cmm (130-400) 06/09/21 19:59 MPV 9.7 fL (7.4-10.4) 06/09/21 19:59 Neut % (Auto) 51.6 % 06/09/21 19:59 Lymph % (Auto) 32.8 % 06/09/21 19:59 [place] % (Auto) 12.1 % 06/09/21 19:59 Eos % (Auto) 2.7 % 06/09/21 19:59 Baso % (Auto) 0.5 % 06/09/21 19:59 Neut # (Auto) 3.21 10^3/uL (1.8-7.7) 06/09/21 19:59 Lymph # (Auto) 2.0 10^3/uL (0.8-4.8) 06/09/21 19:59 [place]ley # (Auto) 0.8 10^3/uL (0.2-0.9) 06/09/21 19:59 Eos # (Auto) 0.2 10^3/uL (0.0-0.8) 06/09/21 19:59 Baso # (Auto) 0.0 10^3/uL (0.0-0.1) 06/09/21:59 Nucleated RBC % (auto) 0 % 06/09/21: Nucleated RBCs # 0.0 /100WBC 06/09/21 19:59 PT 13.00 SECONDS (12.1-14.9) 06/09/21 19:59 INR 0.95 (0.8-1.2) 06/09/21 19:59 APTT 26.0 SECONDS (23.9-36.7) 06/09/21 19:59 Sodium 136 mmol/L (136-145) 06/09/21 19:59 Potassium 4.0 mmol/L (3.5-5.1) 06/09/21 19:59 Chloride 100 mmol/L (98-107) 06/09/21 19:59 Carbon Dioxide 23 mmol/L (22-29) 06/09/21 19:59 Anion Gap 17.0 (5-19) 06/09/21 19:59 BUN 14 mg/dL (8-23) 06/09/21 19:59 Creatinine 1.2 mg/dL (0.7-1.2) 06/09/21 19:59 GFR Calculation Not Reportable 06/09/21 19:59 Glucose 82 mg/dL (65-115) 06/09/21 19:59 Calculated Osmolality 282 mOsm/kg (285-295) L 06/09/21 19:59 Calcium 10.1 mg/dL (8.5-10.5) 06/09/21 19:59 Total Bilirubin 0.7 mg/dL (0.15-1.2) 06/09/21 19:59 AST 17 U/L (0-40) 06/09/21 19:59 ALT 9 U/L (0-41) 06/09/21 19:59 Alkaline Phosphatase 89 IU/L (40-130) 06/09/21 19:59 Troponin T Baseline 10 ng/L (0-15) 06/09/21 19:59 Troponin T 120 Minute 10.77 ng/L (0-15) 06/09/21 22:00 Delta Troponin T Not Reportable 06/09/21 22:00 Total Protein 8.2 g/dL (6.6-8.7) 06/09/21 19:59 Albumin 4.6 g/dL (3.5-5.2) 06/09/21 19:59 Globulin 3.6 g/dL (1.3-4.6) 06/09/21 19:59 Lipase 40 U/L (13-60) 06/09/21 22:00 Discharge Plan Discharge Patient Disposition: Home Clinical Impression: Back pain, Hypertension Condition: Stable Prescriptions: New amlodipine 5 mg tablet 5 mg PO DAILY Qty: 30 0RF No Action tamsulosin 0.4 mg capsule 0.4 mg PO .at bedtime Qty: 30 0RF ezetimibe [Zetia] 10 mg tablet 10 mg PO QAM Qty: 90 3RF losartan 100 mg tablet 100 mg PO QAM Qty: 90 3RF aspirin 81 mg Tablet,Delayed Release (Dr/Ec) 81 mg PO QAM 0RF vitamin E 1 cap PO QAM 0RF Flonase 50 mcg/actuation [place],Suspension 2 spray INTRANASAL DAILY 0RF diclofenac sodium 1 % Gel 2 g TOPICAL QID PRN (Reason: Pain) 0RF Antivert 50 mg tablet 50 mg PO BID PRN (Reason: dizziness) Qty: 20 0RF Eliquis 5 mg tablet 5 mg PO BID Qty: 30 0RF Discharge Orders: Discharge ED (Routine); Ordered 06/09/21 Ordered By: Orlando Valentine Referrals: Denis Nowak MD [Primary Care Provider] - Discharge Diet: Usual diet Discharge Activity: Increase activity as tolerated Patient Instructions: Hypertension (ED), Back Pain (ED) Activity Restrictions/Additional Instructions: Thank you for visiting the emergency department. You were seen and evaluated for back pain and high blood pressure. The exact cause of back pain is unclear, no evidence of heart attack was identified and no other obvious cause was identified on ED exam. Your blood pressure is elevated, I will add a blood pressure medication. Please continue to take all your other medications. Please follow-up with your primary care provider. Please be cautious with new blood pressure medications due to risk of low blood pressure. Ensure that you do not go from laying to sitting or standing suddenly without giving your self time to adjust. Additionally please ensure that you are staying hydrated. Please follow-up with your primary care provider for further blood pressure control. Please return to the emergency department for chest pain, shortness of breath, any fall or head injury, or anything else that you are concerned about and feel needs emergency department evaluation. Coding Level of Care Code ED Lead Enterprise Architect for Victor M Hale
[2021-06-09 20:37] LABS: Alanine Aminotransferase 9 U/L (0-41); Albumin Level 4.6 g/dL (3.5-5.2); Alkaline Phosphatase 89 IU/L (40-130); Aspartate Amino Transferase 17 U/L (0-40); Blood Urea Nitrogen 14 mg/dL (8-23); Calcium 10.1 mg/dL (8.5-10.5); Carbon Dioxide 23 mmol/L (22-29); Chloride 100 mmol/L (98-107); Globulin 3.6 g/dL (1.3-4.6); Glucose 82 mg/dL (65-115); Osmolality Calculated 282 mOsm/kg (285-295); Sodium 136 mmol/L (136-145); Total Bilirubin 0.7 mg/dL (0.15-1.2); Total Protein 8.2 g/dL (6.6-8.7)
[2021-06-09 20:38] LABS: Troponin(5th) Baseline 10 ng/L (0-15)
[2021-06-09 20:51] LABS: INR 0.95 (0.8-1.2)
--- NOTE | 2021-06-09 21:03 | XRR_ITS ---
PROCEDURE INFORMATION: Exam: XR Chest Exam date and time: 06/09/2021 9:20 PM Age: 80 years old Clinical indication: Other: Pain in between shoulder blades TECHNIQUE: Imaging protocol: XR of the chest. Views: 1 view. COMPARISON: CR (CHEST, ) 05/13/2021 7:10 AM FINDINGS: Lungs: Unremarkable. No consolidation. Pleural spaces: Unremarkable. No pleural effusion. No pneumothorax. Heart/Mediastinum: Unremarkable. No cardiomegaly. Bones/joints: Unremarkable. XR/XR chest 1V portable [id number] IMPRESSION: No acute findings.
[2021-06-09] MEDS: ketorolac 30 mg/mL INJ 15 MG IVP (21:14)
[2021-06-09] MEDS: aspirin 81 mg Chew Tablet 324 MG PO (21:16)
[2021-06-09] MEDS: lidocaine 2% viscous 15 ML, aluminum-mag hydrox-simethicon 30 ML, sucralfate oral liq 1 GM PO (21:17)
--- NOTE | 2021-06-09 21:47 | ECG_ITS ---
[facility] Test Date: 2021-06-09 Pat Name: David Orozco Department: Room: Gender: Male Program Rep: : 1940 Requested By: Rodrigue Adorno Order Number: [id number] Jessica MD: Js Hendricks M.D. Measurements Intervals [place] Rate: 62 P: 16 PA: 139 QRS: -18 QRSD: 86 T: 29 QT: 385 QTc: 392 Interpretive Statements SINUS RHYTHM Compared to ECG 05/13/2021 10:02:16 No significant changes Electronically Signed On 06-10-2021 9:43:43 CDT by Js Hendricks M.D. [id number]
[2021-06-09 22:29] LABS: Troponin 5 2HR 10.77 ng/L (0-15)
[2021-06-09 22:31] LABS: Lipase 40 U/L (13-60)
[2021-06-09] MEDS: amlodipine 5 mg Tablet PO (22:35)
[2021-06-09 23:26] VITALS: BP 195/91; PULSE 61; RESP 17; O2SAT 96
== END 2021-06-09 23:27 | disposition home or self-care (01) ==
PROVIDERS: Emergency Medicine; Nurse Practitioner Family; Emergency Provider Emergency Medicine; PCP Internal Medicine
DX: M54.89 Other dorsalgia (principal); I10 Essential (primary) hypertension; I25.10 Atherosclerotic heart disease of native coronary artery without angina pectoris; E78.5 Hyperlipidemia, unspecified; I48.20 Chronic atrial fibrillation, unspecified; Z79.82 Long term (current) use of aspirin; Z79.01 Long term (current) use of anticoagulants
CPT/HCPCS: 71045; 80053; 83690; 84484; 85025; 85610; 85730; 93005; 96374; 99283; J1885

== ENCOUNTER 2021-06-19 13:48 | Emergency (ER) | payer MEDICARE, MEDICAID, SELFPAY ==
[2021-06-19 13:57] VITALS: BP 158/84; PULSE 95; RESP 16; TEMP 36.7; O2SAT 96; BMI 30.4
--- NOTE | 2021-06-19 15:44 | XRR_ITS ---
PROCEDURE INFORMATION: Exam: XR Chest Exam date and time: 06/19/2021 3:51 PM Age: 80 years old Clinical indication: Screening exam; Other screening; Additional info: Eval pathologies TECHNIQUE: Imaging protocol: XR of the chest. Views: 2 views. COMPARISON: CR (CHEST, ) 06/09/2021 9:20 PM FINDINGS: Lungs: Unremarkable. No consolidation. Pleural spaces: Unremarkable. No pleural effusion. No pneumothorax. Heart/Mediastinum: Unremarkable. No cardiomegaly. Bones/joints: Unremarkable. XR/XR chest 2V* [id number] IMPRESSION: No acute findings.
--- NOTE | 2021-06-19 16:12 | ECG_ITS ---
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 Measurements Intervals [place] Rate: 66 P: IN: QRS: -20 QRSD: 80 T: 29 QT: 365 QTc: 385 Interpretive Statements Sinus rhythm Compared to ECG 06/09/2021 22:26:31 Sinus bradycardia no longer present Electronically Signed On 06-19-2021 18:36:23 CDT by Anna Soto M.D. [id number]
[2021-06-19 16:20] VITALS: BP 169/98; PULSE 75; RESP 15; O2SAT 98
--- NOTE | 2021-06-19 16:36 | ED_ITS ---
Documented by User: Glynn David DO 06/20/21 08:38 HPI - Back Pain/Injury General: Chief Complaint: Back Pain/Injury Stated Complaint: pain between shoulder blades/dizziness Time Seen by Provider: 06/19/21 15:57 Source: patient Mode of arrival: ambulatory Limitations: no limitations History of Present Illness: 80-year-old male presents emergency room complaining of back pain mid scapular. Does not really have any chest pain per se he cannot recall anything he did that seem to precipitated he has not been short of breath sick to his stomach nauseous the pain does not radiate into his neck or arms. He has no known history of coronary disease no known history of aneurysm. He has not been short of breath not had fever sweats or chills. MD elicited complaint: back pain Onset (ago): hour(s) (8) Timing: constant Severity: mild Similar Symptoms Previously: Yes Location: lumbar spine Radiation: none Exacerbating factors: none Relieving factors: none Context: while lifting Associated symptoms: Deny abdominal pain, arthralgias, chills, change in bowel habits, difficulty walking, dysuria, fatigue, fecal incontinence, fever(s), hematuria, myalgias, nausea, numbness, syncope, tingling/numbness/burning, urinary frequency, urinary urgency, vomiting or weakness Review of Systems Const: Denies: fever(s), chills or fatigue ENMT: Denies: throat pain, ear or mastoid pain, nasal discharge or nasal congestion Card: Denies: chest pain, palpitations or syncope Resp: Denies: dyspnea, productive cough or non-productive cough GI: Denies: abdominal pain, nausea, vomiting, fecal incontinence or change in bowel habits : Denies: dysuria, urinary urgency or hematuria Musc: Reports: back pain Skin/Breast: Denies: rash or pruritus Neuro: Denies: difficulty walking PFSH ED PFSH: Medical History Atherosclerotic heart disease of alutiiq coronary artery without angina pectoris Benign essential HTN Calculus of kidney with calculus of ureter Chronic episodic atrial fibrillation Dyslipidemia (high LDL; low HDL) Fibromyalgia GERD (gastroesophageal reflux disease) History of atrial fibrillation History of colon polyps Insomnia Left ureteral calculus Lumbar disc disease Renal mass Surgical History History of cardiac cath History of cholecystectomy History of colonoscopy History of shoulder surgery Family History Brother No problems noted. Father , at age 93 Dementia Parkinsons Mother , at age 75 No problems noted. Denies family history of Diabetes CAD (coronary artery disease) Clotting disorder Chronic kidney disease (CKD) Suicide Anesthesia complication Bleeding disorder Lung disease Cancer Stroke Social History Smoking and tobacco status: never smoked Alcohol intake: current Alcohol intake frequency: holidays/special occasions only Housing: House Marital status: / Current occupational status: retired History of recent travel: No Physical Exam Const: GENERAL APPEARANCE: cooperative and comfortable ORIENT ATION/CONSCIOUSNESS: Yes awake, Yes oriented to person, Yes oriented to place and Yes oriented to time HENMT: COMMON NORMALS: normocephalic, atraumatic and hearing grossly normal bilaterally HEAD & SCALP: normocephalic and atraumatic Neck/C-Spine: COMMON NORMALS: no JVD OTHER: Back pain is not reproducible palpation in the mid thoracic spine region Resp: COMMON NORMALS: normal respiratory effort, No retractions, No use of accessory muscles and clear to auscultation bilaterally AUSCULTATION: clear to auscultation bilaterally Cardio: COMMON NORMALS: no JVD, regular rate, regular rhythm and No murmurs present (Cardio) RATE: regular rate RHYTHM: regular rhythm GI: COMMON NORMALS: Soft to palpation and No hepatosplenomegaly present AUSCULTATION: Yes normoactive bowel sounds PALPATION: Yes Soft to palpation, No Tenderness to palpation present (GI), No Guarding due to palpation present (GI) and Yes No hepatosplenomegaly present Extremity: COMMON NORMALS: normal to inspection, capillary refill normal, no clubbing, cyanosis or edema, no calf tenderness and no pedal edema Neuro: SENSORIUM/ORIENTATION: Yes oriented to person, Yes oriented to place and Yes oriented to time Skin: COMMON NORMALS: no rashes or lesions noted GENERAL SKIN EXAM: no rashes or lesions noted Course Vital Signs: Vital signs: Vital Signs Temperature 98.0 F 06/19/21 13:57 Pulse Rate 67 06/19/21 19:37 Respiratory Rate 20 H 06/19/21 19:37 Blood Pressure 173/86 06/19/21 19:37 Pulse Oximetry 96 06/19/21 19:37 MDM - Back Pain/Injury Medical Decision Making First troponin negative waiting on second thoracic spine negative. Remainder of labs reviewed. Patient of related chest pain was evaluating for this being an anginal equivalent. Pain is resolved spontaneously. Chest x-ray is normal no widening of the mediastinum no evidence of pneumonia or pneumothorax. If second troponin negative anticipate discharge. Care signed out to Dr. Valentine At change of shift. See final notes for diagnosis and disposition. See post handoff evaluation note below for my portion of patient care. Labs : 06/19/21 16:19 06/19/21 16:19 Radiology Impressions Chest X-Ray 06/19/21 15:44 IMPRESSION: No acute findings. Thoracic Spine X-Ray 06/19/21 16:40 IMPRESSION: No acute findings. Laboratory Results WBC 6.0 10^3/uL (4.0-10.0) 06/19/21 16:19 RBC 4.66 10^6/uL (4.1-5.3) 06/19/21 16:19 Hgb 15.4 g/dL (11.7-16.6) 06/19/21 16:19 Hct 44.7 % (42.0-52.0) 06/19/21 16:19 MCV 95.9 fl (80-94) H 06/19/21 16:19 MCH 33.0 pg (28.0-34.0) 06/19/21 16:19 MCHC 34.5 g/dL (30.0-36.0) 06/19/21 16:19 RDW 12.4 % (12.1-15.1) 06/19/21 16:19 Plt Count 236 10^3/cmm (130-400) 06/19/21 16:19 MPV 10.4 fL (7.4-10.4) 06/19/21 16:19 Neut % (Auto) 54.7 % 06/19/21 16:19 Lymph % (Auto) 30.8 % 06/19/21 16:19 Winn % (Auto) 11.9 % 06/19/21 16:19 Eos % (Auto) 1.8 % 06/19/21 16:19 Baso % (Auto) 0.5 % 06/19/21 16:19 Neut # (Auto) 3.29 10^3/uL (1.8-7.7) 06/19/21 16:19 Lymph # (Auto) 1.9 10^3/uL (0.8-4.8) 06/19/21 16:19 Winn # (Auto) 0.7 10^3/uL (0.2-0.9) 06/19/21 16:19 Eos # (Auto) 0.1 10^3/uL (0.0-0.8) 06/19/21 16:19 Baso # (Auto) 0.0 10^3/uL (0.0-0.1) 06/19/21 16:19 Nucleated RBC % (auto) 0 % 06/19/21 16:19 Nucleated RBCs # 0.0 /100WBC 06/19/21 16:19 Sodium 136 mmol/L (136-145) 06/19/21 16:19 Potassium 4.5 mmol/L (3.5-5.1) 06/19/21 16:19 Chloride 103 mmol/L (98-107) 06/19/21 16:19 Carbon Dioxide 22 mmol/L (22-29) 06/19/21 16:19 Anion Gap 15.5 (5-19) 06/19/21 16:19 BUN 16 mg/dL (8-23) 06/19/21 16:19 Creatinine 1.0 mg/dL (0.7-1.2) 06/19/21 16:19 GFR Calculation Not Reportable 06/19/21 16:19 Glucose 92 mg/dL (65-115) 06/19/21 16:19 Calculated Osmolality 283 mOsm/kg (285-295) L 06/19/21 16:19 Calcium 9.4 mg/dL (8.5-10.5) 06/19/21 16:19 Total Bilirubin 0.5 mg/dL (0.15-1.2) 06/19/21 16:19 AST 20 U/L (0-40) 06/19/21 16:19 ALT 12 U/L (0-41) 06/19/21 16:19 Alkaline Phosphatase 86 IU/L (40-130) 06/19/21 16:19 Troponin T Baseline 10 ng/L (0-15) 06/19/21 16:19 Troponin T 120 Minute 9.21 ng/L (0-15) 06/19/21 18:14 Delta Troponin T -0.79 ABS# (0-10) L 06/19/21 18:14 Troponin T Hi Sens 6Hr Cancelled 06/19/21 19:38 Troponin T Hi Sens 6Hr Delta Cancelled 06/19/21 19:38 Total Protein 7.8 g/dL (6.6-8.7) 06/19/21 16:19 Albumin 4.6 g/dL (3.5-5.2) 06/19/21 16:19 Globulin 3.2 g/dL (1.3-4.6) 06/19/21 16:19 Urine Color Yellow (Yellow) 06/19/21 18:04 Urine Appearance Clear (CLEAR) 06/19/21 18:04 Urine pH 5 (5-7) 06/19/21 18:04 Ur Specific [place] 1.020 (1.005-1.030) 06/19/21 18:04 Urine Protein Neg (Negative) 06/19/21 18:04 Urine Glucose (UA) Norm (Normal) 06/19/21 18:04 Urine Ketones 1+ (Negative) H 06/19/21 18:04 Urine Blood 2+ (Negative) H 06/19/21 18:04 Urine Nitrate Negative (Negative) 06/19/21 18:04 Urine Bilirubin Neg (Negative) 06/19/21 18:04 Urine Urobilinogen Neg mg/dL (Negative) 06/19/21 18:04 Ur Leukocyte Esterase Negative (Negative) 06/19/21 18:04 Urine RBC 5-10 /hpf (0-2) H 06/19/21 18:04 Urine WBC Rare /hpf (0-5) 06/19/21 18:04 Ur Squamous Epith Cells Rare /hpf (0-5) 06/19/21 18:04 Amorphous Sediment Not Reportable 06/19/21 18:04 Urine Bacteria None /hpf (NONE) 06/19/21 18:04 Urine Mucus 1+ /hpf 06/19/21 18:04 Discharge Plan Discharge Patient Disposition: Home Clinical Impression: Back pain, thoracic, Hematuria Condition: Stable Prescriptions: No Action ezetimibe [Zetia] 10 mg tablet 10 mg PO QAM Qty: 90 3RF losartan 100 mg tablet 100 mg PO QAM Qty: 90 3RF aspirin 81 mg Tablet,Delayed Release (Dr/Ec) 81 mg PO QAM 0RF vitamin E 1 cap PO QAM 0RF Antivert 50 mg tablet 50 mg PO BID PRN (Reason: dizziness) Qty: 20 0RF amlodipine 5 mg tablet 5 mg PO DAILY Qty: 30 0RF Discharge Orders: Discharge ED (Routine); Ordered 06/19/21 Ordered By: Orlando Valentine Referrals: Denis Nowak MD [Primary Care Provider] - Discharge Diet: Usual diet Discharge Activity: Resume usual activity Patient Instructions: Hematuria (ED), Back Pain (ED) Activity Restrictions/Additional Instructions: Thank you for visiting the emergency department. You were seen and evaluated for back pain. The exact cause of your symptoms is unclear however does not appear to need hospitalization at this time. Please follow-up with your primary care provider. Please return to the emergency department for anything that you are concerned about and feel needs emergency department evaluation. You do have a small amount of microscopic blood in your urine. I recommend follow-up with your primary care provider and repeat urinalysis with further testing as indicated if blood in urine persists. Sign Out Sign Out Data: Patient Sign Out occurred on 06/19/21 at 18:35. Patient's care was discussed, and care was transferred from to Orlando Valentine MD. Post-Handoff Eval: Patient care handoff received from Dr. David pending completion of ED eval uation. Laboratory studies and imaging were reviewed. Delta troponin, which was pending at time of handoff, was negative. Based on plan discussed with Dr. David patient satisfactory for discharge. 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 Comprehensive Documented by User: Orlando Valentine MD 06/19/21 19:46 HPI - Back Pain/Injury General: Chief Complaint: Back Pain/Injury Stated Complaint: pain between shoulder blades/dizziness Time Seen by Provider: 06/19/21 15:57 PFSH ED PFSH: Medical History Atherosclerotic heart disease of alutiiq coronary artery without angina pectoris Benign essential HTN Calculus of kidney with calculus of ureter Chronic episodic atrial fibrillation Dyslipidemia (high LDL; low HDL) Fibromyalgia GERD (gastroesophageal reflux disease) History of atrial fibrillation History of colon polyps Insomnia Left ureteral calculus Lumbar disc disease Renal mass Surgical History History of cardiac cath History of cholecystectomy History of colonoscopy History of shoulder surgery Family History Brother No problems noted. Father , at age 93 Dementia Parkinsons Mother , at age 75 No problems noted. Denies family history of Diabetes CAD (coronary artery disease) Clotting disorder Chronic kidney disease (CKD) Suicide Anesthesia complication Bleeding disorder Lung disease Cancer Stroke Social History Smoking and tobacco status: never smoked Alcohol intake: current Alcohol intake frequency: holidays/special occasions only Housing: House Marital status: / Current occupational status: retired History of recent travel: No Course Vital Signs: Vital signs: Vital Signs Temperature 98.0 F 06/19/21 13:57 Pulse Rate 67 06/19/21 19:37 Respiratory Rate 20 H 06/19/21 19:37 Blood Pressure 173/86 06/19/21 19:37 Pulse Oximetry 96 06/19/21 19:37 MDM - Back Pain/Injury Medical Decision Making See post handoff evaluation note below for my portion of patient care. Labs : 06/19/21 16:19 06/19/21 16:19 Radiology Impressions Chest X-Ray 06/19/21 15:44 IMPRESSION: No acute findings. Thoracic Spine X-Ray 06/19/21 16:40 IMPRESSION: No acute findings. Laboratory Results WBC 6.0 10^3/uL (4.0-10.0) 06/19/21 16:19 RBC 4.66 10^6/uL (4.1-5.3) 06/19/21 16:19 Hgb 15.4 g/dL (11.7-16.6) 06/19/21 16:19 Hct 44.7 % (42.0-52.0) 06/19/21 16:19 MCV 95.9 fl (80-94) H 06/19/21 16:19 MCH 33.0 pg (28.0-34.0) 06/19/21 16:19 MCHC 34.5 g/dL (30.0-36.0) 06/19/21 16:19 RDW 12.4 % (12.1-15.1) 06/19/21 16:19 Plt Count 236 10^3/cmm (130-400) 06/19/21 16:19 MPV 10.4 fL (7.4-10.4) 06/19/21 16:19 Neut % (Auto) 54.7 % 06/19/21 16:19 Lymph % (Auto) 30.8 % 06/19/21 16:19 Winn % (Auto) 11.9 % 06/19/21 16:19 Eos % (Auto) 1.8 % 06/19/21 16:19 Baso % (Auto) 0.5 % 06/19/21 16:19 Neut # (Auto) 3.29 10^3/uL (1.8-7.7) 06/19/21 16:19 Lymph # (Auto) 1.9 10^3/uL (0.8-4.8) 06/19/21 16:19 Winn # (Auto) 0.7 10^3/uL (0.2-0.9) 06/19/21 16:19 Eos # (Auto) 0.1 10^3/uL (0.0-0.8) 06/19/21 16:19 Baso # (Auto) 0.0 10^3/uL (0.0-0.1) 06/19/21 16:19 Nucleated RBC % (auto) 0 % 06/19/21 16:19 Nucleated RBCs # 0.0 /100WBC 06/19/21 16:19 Sodium 136 mmol/L (136-145) 06/19/21 16:19 Potassium 4.5 mmol/L (3.5-5.1) 06/19/21 16:19 Chloride 103 mmol/L (98-107) 06/19/21 16:19 Carbon Dioxide 22 mmol/L (22-29) 06/19/21 16:19 Anion Gap 15.5 (5-19) 06/19/21 16:19 BUN 16 mg/dL (8-23) 06/19/21 16:19 Creatinine 1.0 mg/dL (0.7-1.2) 06/19/21 16:19 GFR Calculation Not Reportable 06/19/21 16:19 Glucose 92 mg/dL (65-115) 06/19/21 16:19 Calculated Osmolality 283 mOsm/kg (285-295) L 06/19/21 16:19 Calcium 9.4 mg/dL (8.5-10.5) 06/19/21 16:19 Total Bilirubin 0.5 mg/dL (0.15-1.2) 06/19/21 16:19 AST 20 U/L (0-40) 06/19/21 16:19 ALT 12 U/L (0-41) 06/19/21 16:19 Alkaline Phosphatase 86 IU/L (40-130) 06/19/21 16:19 Troponin T Baseline 10 ng/L (0-15) 06/19/21 16:19 Troponin T 120 Minute 9.21 ng/L (0-15) 06/19/21 18:14 Delta Troponin T -0.79 ABS# (0-10) L 06/19/21 18:14 Troponin T Hi Sens 6Hr Cancelled 06/19/21 19:38 Troponin T Hi Sens 6Hr Delta Cancelled 06/19/21 19:38 Total Protein 7.8 g/dL (6.6-8.7) 06/19/21 16:19 Albumin 4.6 g/dL (3.5-5.2) 06/19/21 16:19 Globulin 3.2 g/dL (1.3-4.6) 06/19/21 16:19 Urine Color Yellow (Yellow) 06/19/21 18:04 Urine Appearance Clear (CLEAR) 06/19/21 18:04 Urine pH 5 (5-7) 06/19/21 18:04 Ur Specific [place] 1.020 (1.005-1.030) 06/19/21 18:04 Urine Protein Neg (Negative) 06/19/21 18:04 Urine Glucose (UA) Norm (Normal) 06/19/21 18:04 Urine Ketones 1+ (Negative) H 06/19/21 18:04 Urine Blood 2+ (Negative) H 06/19/21 18:04 Urine Nitrate Negative (Negative) 06/19/21 18:04 Urine Bilirubin Neg (Negative) 06/19/21 18:04 Urine Urobilinogen Neg mg/dL (Negative) 06/19/21 18:04 Ur Leukocyte Esterase Negative (Negative) 06/19/21 18:04 Urine RBC 5-10 /hpf (0-2) H 06/19/21 18:04 Urine WBC Rare /hpf (0-5) 06/19/21 18:04 Ur Squamous Epith Cells Rare /hpf (0-5) 06/19/21 18:04 Amorphous Sediment Not Reportable 06/19/21 18:04 Urine Bacteria None /hpf (NONE) 06/19/21 18:04 Urine Mucus 1+ /hpf 06/19/21 18:04 Discharge Plan Discharge Patient Disposition: Home Clinical Impression: Back pain, thoracic, Hematuria Condition: Stable Prescriptions: No Action ezetimibe [Zetia] 10 mg tablet 10 mg PO QAM Qty: 90 3RF losartan 100 mg tablet 100 mg PO QAM Qty: 90 3RF aspirin 81 mg Tablet,Delayed Release (Dr/Ec) 81 mg PO QAM 0RF vitamin E 1 cap PO QAM 0RF Antivert 50 mg tablet 50 mg PO BID PRN (Reason: dizziness) Qty: 20 0RF amlodipine 5 mg tablet 5 mg PO DAILY Qty: 30 0RF Discharge Orders: Discharge ED (Routine); Ordered 06/19/21 Ordered By: Orlando Valentine Referrals: Denis Nowak MD [Primary Care Provider] - Discharge Diet: Usual diet Discharge Activity: Resume usual activity Patient Instructions: Hematuria (ED), Back Pain (ED) Activity Restrictions/Additional Instructions: Thank you for visiting the emergency department. You were seen and evaluated fo r back pain. The exact cause of your symptoms is unclear however does not appear to need hospitalization at this time. Please follow-up with your primary care provider. Please return to the emergency department for anything that you are concerned about and feel needs emergency department evaluation. You do have a small amount of microscopic blood in your urine. I recommend follow-up with your primary care provider and repeat urinalysis with further testing as indicated if blood in urine persists. Sign Out Sign Out Data: Patient Sign Out occurred on 06/19/21 at 18:35. Patient's care was discussed, and care was transferred from to Orlando Valentine MD. Post-Handoff Eval: Patient care handoff received from Dr. David pending completion of ED evaluation. Laboratory studies and imaging were reviewed. Delta troponin, which was pending at time of handoff, was negative. Based on plan discussed with Dr. David patient satisfactory for discharge. 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 Comprehensive
--- NOTE | 2021-06-19 16:40 | XRR_ITS ---
PROCEDURE INFORMATION: Exam: XR Thoracic Spine Exam date and time: 06/19/2021 4:52 PM Age: 80 years old Clinical indication: Pain in thoracic spine; Additional info: Upper back pain TECHNIQUE: Imaging protocol: XR of the thoracic spine. Views: 3 views. COMPARISON: CR XR chest 2V* [id number] 06/19/2021 3:51 PM FINDINGS: Bones/joints: No acute fracture. Normal alignment. 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 Soft tissues: Unremarkable. XR/XR thoracic spine 3V* [id number] IMPRESSION: No acute findings.
[2021-06-19 16:55] LABS: Basophils % 0.5 %; Eosinophils # 0.1 10^3/uL (0.0-0.8); Eosinophils % 1.8 %; Hematocrit 44.7 % (42.0-52.0); Hemoglobin 15.4 g/dL (11.7-16.6); Lymphocytes # 1.9 10^3/uL (0.8-4.8); Lymphocytes % 30.8 %; Mean Corpuscular HGB Conc 34.5 g/dL (30.0-36.0); Mean Corpuscular Volume 95.9 fl (80-94); Mean Platelet Volume 10.4 fL (7.4-10.4); Monocytes # 0.7 10^3/uL (0.2-0.9); Monocytes % 11.9 %; Neutrophils # 3.29 10^3/uL (1.8-7.7); Neutrophils % 54.7 %; Nucleated Red Blood Cells % 0 %; Platelet Count 236 10^3/cmm (130-400); Red Blood Count 4.66 10^6/uL (4.1-5.3); Red Cell Distribution Width 12.4 % (12.1-15.1)
[2021-06-19 16:59] LABS: Troponin(5th) Baseline 10 ng/L (0-15)
[2021-06-19 17:02] LABS: Albumin Level 4.6 g/dL (3.5-5.2); Alkaline Phosphatase 86 IU/L (40-130); Blood Urea Nitrogen 16 mg/dL (8-23); Calcium 9.4 mg/dL (8.5-10.5); Carbon Dioxide 22 mmol/L (22-29); Chloride 103 mmol/L (98-107); Globulin 3.2 g/dL (1.3-4.6); Glucose 92 mg/dL (65-115); Osmolality Calculated 283 mOsm/kg (285-295); Sodium 136 mmol/L (136-145); Total Bilirubin 0.5 mg/dL (0.15-1.2); Total Protein 7.8 g/dL (6.6-8.7)
[2021-06-19 17:06] LABS: Alanine Aminotransferase 12 U/L (0-41); Anion Gap 15.5 (5-19); Aspartate Amino Transferase 20 U/L (0-40); Potassium 4.5 mmol/L (3.5-5.1)
[2021-06-19 17:12] VITALS: BP 190/80; PULSE 71; RESP 17; O2SAT 95
--- NOTE | 2021-06-19 17:24 | PC.PHAR ---
pt states he takes care of his own medications-pt states he takes a bp med but is unsure of the name-amlodpine 5mg daily filled and picked up on 06/10/21 30d/s-losartan 100mg qam filled on 03/15/21 90d/s-pt had levothyroxine 25mcg po daily filled on 04/18/21 30d/s no refills and flomax 0.4mg hs filled on 04/30/21 30d/s no refills-pt had eliquis 5mg bid filled on 02/16/21 15d/s pt states not taking any of those medications
[2021-06-19 18:04] VITALS: BP 162/89; PULSE 67; RESP 20; O2SAT 97
--- NOTE | 2021-06-19 18:12 | ECG_ITS ---
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 Measurements Intervals [place] Rate: 71 P: 36 [place]: 203 QRS: -5 QRSD: 87 T: 29 QT: 381 QTc: 414 Interpretive Statements SINUS RHYTHM WITH FREQUENT SUPRAVENTRICULAR PREMATURE COMPLEXES LOW QRS VOLTAGE IN PRECORDIAL LEADS [QRS DEFLECTION < 1.0 mV IN CHEST LEADS] ABNORMAL RHYTHM ECG Compared to ECG 06/19/2021 16:27:10 Low QRS voltage now present Electronically Signed On 06-20-2021 6:48:47 CDT by Anna Soto M.D. [id number]
[2021-06-19 18:24] LABS: Add Urine Microscopic? YES; Bilirubin Urine Neg (Negative); Blood Urine 2+ (Negative); Glucose Urine UA Norm (Normal); Ketones Urine 1+ (Negative); Leukocyte Esterase Urine Negative (Negative); Mucus Urine 1+ /hpf; Nitrate Urine Negative (Negative); Protein Urine Neg (Negative); Squamous Epithelial Cell Urine RARE /hpf (0-5); Urine Appearance Clear (CLEAR); Urine Color Yellow (Yellow); Urobilinogen Urine Neg (Negative); WBC Urine RARE /hpf (0-5); pH Urine 5 (5-7)
[2021-06-19 18:25] LABS: Add Urine Culture? No
[2021-06-19 19:07] LABS: Troponin 5 2HR 9.21 ng/L (0-15)
[2021-06-19 19:09] VITALS: BP 186/110; PULSE 69; RESP 20; O2SAT 96
[2021-06-19 19:37] VITALS: BP 173/86; PULSE 67; RESP 20; O2SAT 96
[2021-06-19 19:38] LABS: Troponin 5 2HR Delta -0.79 ABS# (0-10)
== END 2021-06-19 19:39 | disposition home or self-care (01) ==
PROVIDERS: Family Medicine; Emergency Provider Emergency Medicine; PCP Internal Medicine
DX: M54.6 Pain in thoracic spine (principal); R31.9 Hematuria, unspecified; I10 Essential (primary) hypertension; E78.5 Hyperlipidemia, unspecified
CPT/HCPCS: 36415; 71046; 72072; 80053; 81001; 84484; 85025; 93005; 99284

== ENCOUNTER 2021-08-24 14:00 | Emergency (ER) | payer MEDICARE, MEDICAID, SELFPAY ==
[2021-08-24 14:13] VITALS: BP 182/95; PULSE 117; RESP 20; TEMP 37.4; O2SAT 96; BMI 27.3
--- NOTE | 2021-08-24 15:30 | ECG_ITS ---
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 Measurements Intervals [place] Rate: 115 P: 47 [place]: 218 QRS: -15 QRSD: 86 T: 72 QT: 297 QTc: 412 Interpretive Statements SINUS TACHYCARDIA WITH FIRST DEGREE AV BLOCK NONSPECIFIC T-WAVE ABNORMALITY Compared to ECG 06/19/2021 19:21:45 First degree AV block now present T-wave abnormality now present Sinus rhythm no longer present Electronically Signed On 08-24-2021 20:41:59 CDT by Maximino Berkowitz M.D. [id number]
--- NOTE | 2021-08-24 15:30 | XRR_ITS ---
PROCEDURE INFORMATION: Exam: XR Chest Exam date and time: 08/24/2021 4:26 PM Age: 80 years old Clinical indication: Cough and shortness of breath; Additional info: Dyspnea/cough TECHNIQUE: Imaging protocol: Radiologic exam of the chest. Views: 1 view. COMPARISON: CR XR chest 2V* [id number] 06/19/2021 3:51 PM FINDINGS: Lungs: Two images of the chest were obtained. Bilateral lower lobe atelectasis noted only on the 2nd image acquired. Pleural spaces: No pleural effusion. No pneumothorax. Heart/Mediastinum: Stable mild enlargement of the cardiac silhouette. Mediastinal contours are unremarkable. Vasculature: Stable vascular calcifications in the aorta. Stable tortuosity of the aorta. Bones/joints: Bones are diffusely osteopenic. Degenerative changes in the spine and shoulders. Patient has had a previous right rotator cuff repair. XR/XR chest 1V portable [id number] IMPRESSION: 1. Two images of the chest were obtained. Bilateral lower lobe atelectasis noted only on the 2nd image acquired. 2. Incidental/nonacute findings are listed in the report.
--- NOTE | 2021-08-24 16:52 | W.ED.SOB ---
HPI - SOB/Dyspnea General: Chief Complaint: Shortness of Breath/Dyspnea Stated Complaint: sob Time Seen by Provider: 08/24/21 16:23 Source: patient Mode of arrival: ambulatory Limitations: no limitations History of Present Illness: HPI Narrative: 80-year-old male presents emergency room his initial complaint in the nurses note is that he short of breath and I came to see him he focused more on the fact that he has low back pain at the lumbosacral junction. There is no radiation of pain into the lower extremities. He has chronic low back pain he seems to have gotten worse recently. He has not taken anything for it. No vomiting or diarrhea. No dysuria urgency or frequency no hematuria. He is mildly tachycardic with a low-grade fever at this time. Went back to the patient's room and reinterviewed him asking about the shortness of breath he states that was yesterday and last evening resolved pretty much resolved now. He denies ever having any history of any coronary disease he is not on any anticoagulants. MD elicited complaint: shortness of breath Pertinent past history: COPD Timing: constant Severity: mild Exacerbating factors: exertion Relieving factors: rest Associated symptoms: Deny abdominal pain, chest congestion, chest pain, cough, diaphoresis, dizziness, extremity pain, fever(s), hemoptysis, lightheadedness, myalgias, nausea, orthopnea, palpitations, paresthesias, polydipsia, polyuria, rash, sense of impending doom, syncope or vomiting Treatment prior to arrival: none Review of Systems Const: Denies: fever(s) or diaphoresis ENMT: Denies: throat pain, ear or mastoid pain, nasal discharge or nasal congestion Card: Denies: chest pain, palpitations, lightheadedness, syncope or orthopnea Resp: Denies: hemoptysis or chest congestion GI: Denies: abdominal pain, nausea or vomiting : Denies: flank pain, dysuria, urinary frequency or urinary urgency Musc: Reports: back pain; Denies: extremity pain Skin/Breast: Denies: rash or pruritus Neuro: Denies: dizziness Endo: Denies: polyuria or polydipsia PFSH ED PFSH: Medical History Atherosclerotic heart disease of [place] coronary artery without angina pectoris Benign essential HTN Calculus of kidney with calculus of ureter Chronic episodic atrial fibrillation Dyslipidemia (high LDL; low HDL) Fibromyalgia GERD (gastroesophageal reflux disease) History of atrial fibrillation History of colon polyps Insomnia Left ureteral calculus Lumbar disc disease Renal mass Surgical History History of cardiac cath History of cholecystectomy History of colonoscopy History of shoulder surgery Family History Brother No problems noted. Father , at age 93 Dementia Parkinsons Mother , at age 75 No problems noted. Denies family history of Diabetes CAD (coronary artery disease) Clotting disorder Chronic kidney disease (CKD) Suicide Anesthesia complication Bleeding disorder Lung disease Cancer Stroke Social History Smoking and tobacco status: never smoked Alcohol intake: current Alcohol intake frequency: holidays/special occasions only Housing: House Marital status: / Current occupational status: retired History of recent travel: No Physical Exam Const: GENERAL APPEARANCE: cooperative and comfortable ORIENTATION/CONSCIOUSNESS: Yes awake, Yes oriented to person, Yes oriented to place and Yes oriented to time HENMT: COMMON NORMALS: normocephalic, atraumatic and hearing grossly normal bilaterally HEAD & SCALP: normocephalic and atraumatic Neck/C-Spine: COMMON NORMALS: no JVD Resp: COMMON NORMALS: normal respiratory effort, No retractions, No use of accessory muscles and clear to auscultation bilaterally AUSCULTATION: clear to auscultation bilaterally Cardio: COMMON NORMALS: no JVD, regular rate, regular rhythm and No murmurs present (Cardio) RATE: regular rate RHYTHM: regular rhythm GI: COMMON NORMALS: Soft to palpation and No hepatosplenomegaly present AUSCULTATION: Yes normoactive bowel sounds PALPATION: Yes Soft to palpation, No Tenderness to palpation present (GI), No Guarding due to palpation present (GI) and Yes No hepatosplenomegaly present Extremity: COMMON NORMALS: normal to inspection, capillary refill normal, no clubbing, cyanosis or edema, no calf tenderness and no pedal edema Neuro: SENSORIUM/ORIENTATION: Yes oriented to person, Yes oriented to place and Yes oriented to time Skin: COMMON NORMALS: no rashes or lesions noted GENERAL SKIN EXAM: no rashes or lesions noted Course Vital Signs: Vital signs: Vital Signs Temperature 99.4 F 08/24/21 14:13 Pulse Rate 117 H 08/24/21 14:13 Respiratory Rate 20 H 08/24/21 14:13 Blood Pressure 182/95 08/24/21 14:13 Pulse Oximetry 96 08/24/21 14:13 MDM - SOB/Dyspnea Medical Decision Making Patient's breathing remains good. He states he still has a little bit of back discomfort for the most part this is an acute worsening of chronic ongoing problem. We will refer him back to his primary care doctor gave Celebrex to use 1 p.o. twice daily additionally he use a prednisone taper. If he has worsening difficulty breathing return to the emergency room. Medical Records I reviewed the patient's medical records. Lab Data I reviewed the patient's lab results. : 08/24/21 16:45 08/24/21 17:25 Labs/Radiology: Radiology Impressions Chest X-Ray 08/24/21 15:30 IMPRESSION: 1. Two images of the chest were obtained. Bilateral lower lobe atelectasis noted only on the 2nd image acquired. 2. Incidental/nonacute findings are listed in the report. Laboratory Results WBC 11.2 10^3/uL (4.0-10.0) H 08/24/21 16:45 RBC 5.04 10^6/uL (4.1-5.3) 08/24/21 16:45 Hgb 16.4 g/dL (11.7-16.6) 08/24/21 16:45 Hct 46.7 % (42.0-52.0) 08/24/21 16:45 MCV 92.7 fl (80-94) 08/24/21 16:45 MCH 32.5 pg (28.0-34.0) 08/24/21 16:45 MCHC 35.1 g/dL (30.0-36.0) 08/24/21 16:45 RDW 12.6 % (12.1-15.1) 08/24/21 16:45 Plt Count 214 10^3/cmm (130-400) 08/24/21 16:45 MPV 11.1 fL (7.4-10.4) H 08/24/21 16:45 Neut % (Auto) 84.2 % 08/24/21 16:45 Lymph % (Auto) 7.7 % 08/24/21 16:45 [place] % (Auto) 7.3 % 08/24/21 16:45 Eos % (Auto) 0.3 % 08/24/21 16:45 Baso % (Auto) 0.2 % 08/24/21 16:45 Neut # (Auto) 9.44 10^3/uL (1.8-7.7) H 08/24/21 16:45 Lymph # (Auto) 0.9 10^3/uL (0.8-4.8) 08/24/21 16:45 [place] # (Auto) 0.8 10^3/uL (0.2-0.9) 08/24/21 16:45 Eos # (Auto) 0.0 10^3/uL (0.0-0.8) 08/24/21 16:45 Baso # (Auto) 0.0 10^3/uL (0.0-0.1) 08/24/21 16:45 Nucleated RBC % (auto) 0 % 08/24/21 16:45 Nucleated RBCs # 0.0 /100WBC 08/24/21 16:45 Sodium 133 mmol/L (136-145) L 08/24/21 17:25 Potassium 3.9 mmol/L (3.5-5.1) 08/24/21 17:25 Chloride 97 mmol/L (98-107) L 08/24/21 17:25 Carbon Dioxide 22 mmol/L (22-29) 08/24/21 17:25 Anion Gap 17.9 (5-19) 08/24/21 17:25 BUN 13 mg/dL (8-23) 08/24/21 17:25 Creatinine 1.1 mg/dL (0.7-1.2) 08/24/21 17:25 GFR Calculation Not Reportable 08/24/21 17:25 Glucose 95 mg/dL (65-115) 08/24/21 17:25 Calculated Osmolality 276 mOsm/kg (285-295) L 08/24/21 17:25 Calcium 9.2 mg/dL (8.5-10.5) 08/24/21 17:25 Total Bilirubin 0.8 mg/dL (0.15-1.2) 08/24/21 17:25 AST 15 U/L (0-40) 08/24/21 17:25 ALT 10 U/L (0-41) 08/24/21 17:25 Alkaline Phosphatase 82 IU/L (40-130) 08/24/21 17:25 Total Protein 7.9 g/dL (6.6-8.7) 08/24/21 17:25 Albumin 4.2 g/dL (3.5-5.2) 08/24/21 17:25 Globulin 3.7 g/dL (1.3-4.6) 08/24/21 17:25 Discharge Plan Discharge Patient Disposition: Home Clinical Impression: Back pain, COPD (chronic obstructive pulmonary disease) Condition: Stable Prescriptions: New Medrol (Kale) 4 mg tablets,dose pack See Rx Instructions .ROUTE .COMPLEX Qty: 21 0RF Rx Instructions: orally per package directions Celebrex 100 mg capsule 100 mg PO BID Qty: 20 0RF No Action amlodipine 5 mg tablet 5 mg PO DAILY Qty: 90 3RF ezetimibe [Zetia] 10 mg tablet 10 mg PO QAM Qty: 90 3RF losartan 100 mg tablet 100 mg PO QAM Qty: 90 3RF aspirin 81 mg Tablet,Delayed Release (Dr/Ec) 81 mg PO QAM 0RF vitamin E 1 cap PO QAM 0RF Discharge Orders: Discharge ED (Routine); Ordered 08/24/21 Ordered By: Glynn David Referrals: Denis Nowak MD [Primary Care Provider] - Discharge Activity: Limit activity as instructed Patient Instructions: Back Pain (ED), Opioid Safety Activity Restrictions/Additional Instructions: Avoid bending or stooping avoid lifting. Start prednisone taper use the Celebrex twice daily as needed follow-up with your primary care doctor if persists. Coding Level of Care Code ED Professional Wrestler for Victor M Fwd Exam Comprehensive
[2021-08-24 17:00] LABS: Basophils % 0.2 %; Eosinophils % 0.3 %; Hematocrit 46.7 % (42.0-52.0); Hemoglobin 16.4 g/dL (11.7-16.6); Lymphocytes # 0.9 10^3/uL (0.8-4.8); Lymphocytes % 7.7 %; Mean Corpuscular HGB Conc 35.1 g/dL (30.0-36.0); Mean Corpuscular Hemoglobin 32.5 pg (28.0-34.0); Mean Corpuscular Volume 92.7 fl (80-94); Mean Platelet Volume 11.1 fL (7.4-10.4); Monocytes # 0.8 10^3/uL (0.2-0.9); Monocytes % 7.3 %; Neutrophils # 9.44 10^3/uL (1.8-7.7); Neutrophils % 84.2 %; Nucleated Red Blood Cells % 0 %; Platelet Count 214 10^3/cmm (130-400); Red Blood Count 5.04 10^6/uL (4.1-5.3); Red Cell Distribution Width 12.6 % (12.1-15.1); White Blood Count 11.2 10^3/uL (4.0-10.0)
[2021-08-24] MEDS: ketorolac 30 mg/mL INJ 15 MG IVP (17:18)
[2021-08-24] MEDS: orphenadrine 30 mg/mL Inj 2 mL 60 MG IM (17:19)
--- NOTE | 2021-08-24 17:23 | PC.NURSE ---
PT IS PLACED ON CONTINUOUS SPO2, NIBP, AND CM.
[2021-08-24 17:49] LABS: Alanine Aminotransferase 10 U/L (0-41); Albumin Level 4.2 g/dL (3.5-5.2); Alkaline Phosphatase 82 IU/L (40-130); Anion Gap 17.9 (5-19); Aspartate Amino Transferase 15 U/L (0-40); Blood Urea Nitrogen 13 mg/dL (8-23); Calcium 9.2 mg/dL (8.5-10.5); Carbon Dioxide 22 mmol/L (22-29); Chloride 97 mmol/L (98-107); Creatinine Clr Calc Pharmacy 53.9713; Globulin 3.7 g/dL (1.3-4.6); Glucose 95 mg/dL (65-115); Osmolality Calculated 276 mOsm/kg (285-295); Potassium 3.9 mmol/L (3.5-5.1); Sodium 133 mmol/L (136-145); Total Bilirubin 0.8 mg/dL (0.15-1.2); Total Protein 7.9 g/dL (6.6-8.7)
[2021-08-24 18:42] VITALS: BP 171/93; PULSE 102; RESP 20; O2SAT 94
== END 2021-08-24 18:44 | disposition home or self-care (01) ==
PROVIDERS: Emergency Provider Family Medicine; PCP Internal Medicine
DX: J44.9 Chronic obstructive pulmonary disease, unspecified (principal); M54.9 Dorsalgia, unspecified
CPT/HCPCS: 71045; 80053; 85025; 93005; 96372; 96374; 99284; J1885; J2360

== ENCOUNTER 2021-12-03 00:04 | Emergency (ER) | payer MEDICARE, MEDICAID, SELFPAY ==
[2021-12-03] VITALS (10 sets, daily range): BP systolic 119–139; BP diastolic 63–88; PULSE 81–98; RESP 15–24; TEMP 36.6–36.7; O2SAT 91–96; BMI 30.4
--- NOTE | 2021-12-03 00:11 | XRR_ITS ---
PROCEDURE INFORMATION: Exam: XR Chest Exam date and time: 12/03/2021 12:38 AM Age: 81 years old Clinical indication: Pain; Other: Heart burn; Additional info: Abd pain TECHNIQUE: Imaging protocol: Radiologic exam of the chest. Views: 1 view. COMPARISON: CR XR chest 1V portable [id number] 08/24/2021 4:26 PM FINDINGS: Lungs: Unremarkable. No consolidation. Pleural spaces: Unremarkable. No pleural effusion. No pneumothorax. Heart/Mediastinum: Unremarkable. No cardiomegaly. Bones/joints: Suture anchor seen at right humeral head. XR/XR chest 1V portable [id number] IMPRESSION: No acute findings.
--- NOTE | 2021-12-03 00:12 | ECG_ITS ---
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 Measurements Intervals [place] Rate: 97 P: 46 MA: 198 QRS: -21 QRSD: 88 T: 82 QT: 316 QTc: 402 Interpretive Statements SINUS RHYTHM WITH OCCASIONAL SUPRAVENTRICULAR PREMATURE COMPLEXES POSSIBLE ANTERIOR MYOCARDIAL INFARCTION , PROBABLY OLD [30 ms Q WAVE IN V3/V4, OR R < 0.2 mV IN V4] Compared to ECG 08/24/2021 16:05:00 Myocardial infarct finding now present Sinus tachycardia no longer present First degree AV block no longer present T-wave abnormality no longer present Electronically Signed On 12-04-2021 0:06:35 CDT by Kavon Cordoba M.D. [email or web address]
--- NOTE | 2021-12-03 00:18 | ED_ITS ---
HPI - Abdominal Pain General: Chief Complaint: Abdominal Pain Stated Complaint: Heartburn, abd pain Time Seen by Provider: 12/03/21 00:06 Source: patient Mode of arrival: ambulatory Limitations: no limitations History of Present Illness: 81-year-old male who states that he has been having a burning sensation in his chest and upper abdomen since 3 PM he states been constant states it radiates to her shoulder blades as well. States pain is currently a 4 out of 10 denies any vomiting or diarrhea patient denies any fever he does have extensive heart disease. He denies any worsening improving factors . Associated Symptoms: Denies chills, dysuria and fever(s) Review of Systems Const: Denies: fever(s), chills, body aches or change in appetite Eyes: Denies: blurry vision or eye discomfort ENMT: Denies: throat pain or dental pain Card: Reports: chest pain Resp: Denies: dyspnea GI: Reports: abdominal pain : Denies: dysuria Musc: Denies: neck pain or back pain Skin/Breast: Denies: rash Neuro: Denies: headache(s) Psych: Denies: depression Daniel/Lymph: Denies: easy bruising All/Imm: Denies: urticaria PFSH ED PFSH: Medical History Atherosclerotic heart disease of [place] coronary artery without angina pectoris Benign essential HTN Calculus of kidney with calculus of ureter Chronic episodic atrial fibrillation Dyslipidemia (high LDL; low HDL) Fibromyalgia GERD (gastroesophageal reflux disease) History of atrial fibrillation History of colon polyps Insomnia Left ureteral calculus Lumbar disc disease Renal mass Surgical History History of cardiac cath History of cholecystectomy History of colonoscopy History of shoulder surgery Family History Brother No problems noted. Father , at age 93 Dementia Parkinsons Mother , at age 75 No problems noted. Denies family history of Diabetes CAD (coronary artery disease) Clotting disorder Chronic kidney disease (CKD) Suicide Anesthesia complication Bleeding disorder Lung disease Cancer Stroke Social History Smoking and tobacco status: never smoked Alcohol intake: current Alcohol intake frequency: holidays/special occasions only Housing: House Marital status: / Current occupational status: retired History of recent travel: No Physical Exam Const: COMMON NORMALS: patient oriented x3 HENMT: COMMON NORMALS: normocephalic and atraumatic HEAD & SCALP: normocephalic and atraumatic Eye: COMMON NORMALS: Equal, round and reactive pupils present and EOMs intact bilaterally PUPIL: Yes Equal, round and reactive pupils present Neck/C-Spine: COMMON NORMALS: full ROM and supple Chest: COMMONS NORMALS: normal inspection of the chest and normal palpation of entire chest wall Resp: COMMON NORMALS: normal respiratory effort, No retractions, No use of accessory muscles and clear to auscultation bilaterally AUSCULTATION: clear to auscultation bilaterally Cardio: COMMON NORMALS: regular rate, regular rhythm and No murmurs present (Cardio) RATE: regular rate RHYTHM: regular rhythm GI: COMMON NORMALS: Normal to inspection, nondistended, normoactive bowel sounds present, Soft to palpation, non-tender and no masses PALPATION: Yes Soft to palpation Extremity: COMMON NORMALS: normal to inspection and full ROM Neuro: COMMON NORMALS: patient oriented x3, moves all extremities and no focal motor deficits Psych: COMMON NORMALS: mental status grossly normal, Normal thought process present and cooperative THOUGHT PROCESS: Normal thought process present Skin: COMMON NORMALS: no rashes or lesions noted and no wounds GENERAL SKIN EXAM: no rashes or lesions noted Course Vital Signs: Vital signs: Vital Signs Temperature 97.8 F 12/03/21 00:20 Pulse Rate 82 12/03/21 04:00 Respiratory Rate 21 H 12/03/21 04:00 Blood Pressure 119/73 12/03/21 04:00 Pulse Oximetry 93 12/03/21 04:00 Oxygen Delivery Me thod 12/03/21 04:00 MDM - Abdominal Pain Medical Decision Making Patient presents here with abdominal pain likely reflux his pain is improved here with a GI cocktail CT scan is normal his blood work here is normal as well he is to follow-up with PCP and return if worsening he understands agrees to plan. Lab Data : 12/03/21 00:15 12/03/21 00:15 Labs/Radiology: Radiology Impressions Chest X-Ray 12/03/21 00:11 IMPRESSION: No acute findings. Chest/Abdomen/Pelvis CT 12/03/21 01:08 IMPRESSION: No acute findings. IMPRESSION: Bowel fluid can be correlated with infectious process or other etiology of secretory or osmotic diarrhea. Additional details as above. Laboratory Results WBC 7.4 10^3/uL (4.0-10.0) 12/03/21 00:15 RBC 4.89 10^6/uL (4.1-5.3) 12/03/21 00:15 Hgb 15.9 g/dL (11.7-16.6) 12/03/21 00:15 Hct 47.0 % (42.0-52.0) 12/03/21 00:15 MCV 96.1 fl (80-94) H 12/03/21 00:15 MCH 32.5 pg (28.0-34.0) 12/03/21 00:15 MCHC 33.8 g/dL (30.0-36.0) 12/03/21 00:15 RDW 13.4 % (12.1-15.1) 12/03/21 00:15 Plt Count 256 10^3/cmm (130-400) 12/03/21 00:15 MPV 9.5 fL (7.4-10.4) 12/03/21 00:15 Neut % (Auto) 72.8 % 12/03/21 00:15 Lymph % (Auto) 17.9 % 12/03/21 00:15 [place] % (Auto) 7.0 % 12/03/21 00:15 Eos % (Auto) 1.9 % 12/03/21 00:15 Baso % (Auto) 0.0 % 12/03/21 00:15 Neut # (Auto) 5.40 10^3/uL (1.8-7.7) 12/03/21 00:15 Lymph # (Auto) 1.3 10^3/uL (0.8-4.8) 12/03/21 00:15 [place] # (Auto) 0.5 10^3/uL (0.2-0.9) 12/03/21 00:15 Eos # (Auto) 0.1 10^3/uL (0.0-0.8) 12/03/21 00:15 Baso # (Auto) 0.0 10^3/uL (0.0-0.1) 12/03/21 00:15 Nucleated RBC % (auto) 0 % 12/03/21 00:15 Nucleated RBCs # 0.0 /100WBC 12/03/21 00:15 Sodium 137 mmol/L (136-145) 12/03/21 00:15 Potassium 4.1 mmol/L (3.5-5.1) 12/03/21 00:15 Chloride 101 mmol/L (98-107) 12/03/21 00:15 Carbon Dioxide 25 mmol/L (22-29) 12/03/21 00:15 Anion Gap 15.1 (5-19) 12/03/21 00:15 BUN 20 mg/dL (8-23) 12/03/21 00:15 Creatinine 1.2 mg/dL (0.7-1.2) 12/03/21 00:15 GFR Calculation Not Reportable 12/03/21 00:15 Glucose 118 mg/dL (65-115) H 12/03/21 00:15 Calculated Osmolality 288 mOsm/kg (285-295) 12/03/21 00:15 Calcium 9.2 mg/dL (8.5-10.5) 12/03/21 00:15 Total Bilirubin 0.7 mg/dL (0.15-1.2) 12/03/21 00:15 AST 18 U/L (0-40) 12/03/21 00:15 ALT 12 U/L (0-41) 12/03/21 00:15 Alkaline Phosphatase 85 U/L (40-130) 12/03/21 00:15 Troponin T Baseline 10 ng/L (0-15) 12/03/21 00:15 Troponin T 120 Minute 10.97 ng/L (0-15) 12/03/21 02:23 Delta Troponin T 0.97 ABS# (0-10) 12/03/21 02:23 Total Protein 8.0 g/dL (6.6-8.7) 12/03/21 00:15 Albumin 4.5 g/dL (3.5-5.2) 12/03/21 00:15 Globulin 3.5 g/dL (1.3-4.6) 12/03/21 00:15 Lipase 48 U/L (13-60) 12/03/21 00:15 EKG Data EKG 1: I personally reviewed and interpreted this EKG as follows: EKG interpretation date: 12/03/21 EKG interpretation time: 00:12 Interpretation: nsr hr [address] elevation qrs 88 qtc 370 Discharge Plan Discharge Patient Disposition: Home Clinical Impression: Abdominal pain, Chest pain Condition: Stable Prescriptions: No Action amlodipine 5 mg tablet 5 mg PO DAILY Qty: 90 3RF ezetimibe [Zetia] 10 mg tablet 10 mg PO QAM Qty: 90 3RF losartan 100 mg tablet 100 mg PO QAM Qty: 90 3RF vitamin E 100 unit Capsule 100 unit PO DAILY Qty: 0 aspirin 81 mg Tablet,Delayed Release (Dr/Ec) 81 mg PO QAM Medrol (Kale) 4 mg tablets,dose pack See Rx Instructions .ROUTE .COMPLEX Qty: 21 0RF Rx Instructions: orally per package directions Celebrex 100 mg capsule 100 mg PO BID Qty: 20 0RF Discharge Orders: Discharge ED (Routine); Ordered 12/03/21 Ordered By: Chaz Lopez Referrals: Denis Nowak MD [Primary Care Provider] - 1-3 days Discharge Diet: Advance as tolerated Discharge Activity: Resume usual activity Patient Instructions: Chest Pain (ED), Abdominal Pain (ED) Coding Level of Care Code ED Cardiology Technologist for Chg Fwd Exam Comprehensive
[2021-12-03 00:25] LABS: Eosinophils # 0.1 10^3/uL (0.0-0.8); Eosinophils % 1.9 %; Hemoglobin 15.9 g/dL (11.7-16.6); Lymphocytes # 1.3 10^3/uL (0.8-4.8); Lymphocytes % 17.9 %; Mean Corpuscular HGB Conc 33.8 g/dL (30.0-36.0); Mean Corpuscular Hemoglobin 32.5 pg (28.0-34.0); Mean Corpuscular Volume 96.1 fl (80-94); Mean Platelet Volume 9.5 fL (7.4-10.4); Monocytes # 0.5 10^3/uL (0.2-0.9); Neutrophils % 72.8 %; Nucleated Red Blood Cells % 0 %; Platelet Count 256 10^3/cmm (130-400); Red Blood Count 4.89 10^6/uL (4.1-5.3); Red Cell Distribution Width 13.4 % (12.1-15.1); White Blood Count 7.4 10^3/uL (4.0-10.0)
[2021-12-03] MEDS: ondansetron 2 mg/ML SDV 2 mL 4 MG IVP (00:25)
[2021-12-03] MEDS: lidocaine 2% viscous 15 ML, aluminum-mag hydrox-simethicon 30 ML, sucralfate oral liq 1 GM PO (00:25)
[2021-12-03 00:53] LABS: Alanine Aminotransferase 12 U/L (0-41); Albumin Level 4.5 g/dL (3.5-5.2); Alkaline Phosphatase 85 U/L (40-130); Anion Gap 15.1 (5-19); Aspartate Amino Transferase 18 U/L (0-40); Blood Urea Nitrogen 20 mg/dL (8-23); Calcium 9.2 mg/dL (8.5-10.5); Carbon Dioxide 25 mmol/L (22-29); Chloride 101 mmol/L (98-107); Globulin 3.5 g/dL (1.3-4.6); Glucose 118 mg/dL (65-115); Lipase 48 U/L (13-60); Osmolality Calculated 288 mOsm/kg (285-295); Potassium 4.1 mmol/L (3.5-5.1); Sodium 137 mmol/L (136-145); Total Bilirubin 0.7 mg/dL (0.15-1.2); Troponin(5th) Baseline 10 ng/L (0-15)
--- NOTE | 2021-12-03 01:08 | CTR_ITS ---
PROCEDURE INFORMATION: Exam: CTA Chest With Contrast Exam date and time: 12/03/2021 1:21 AM Age: 81 years old Clinical indication: Abdominal pain; Other: Back; Prior surgery; Surgery date: 6+ months; Surgery type: Cholecystectomy; Additional info: Abd pain TECHNIQUE: Imaging protocol: Computed tomographic angiography of the chest with contrast. 3D rendering (Not supervised by radiologist): MIP and/or 3D reconstructed images were created by the technologist. Radiation optimization: All CT scans at this facility use at least one of these dose optimization techniques: automated exposure control; mA and/or kV adjustment per patient size (includes targeted exams where dose is matched to clinical indication); or iterative reconstruction. Contrast material: OMNI 350; Contrast volume: 95 ml; Contrast route: INTRAVENOUS (IV); COMPARISON: CT angio chest [id number] 02/15/2021 8:55 AM RADIATION DOSE METRICS: Total DLP (mGy-cm): 1275.6 FINDINGS: Pulmonary arteries: Normal. No pulmonary emboli. Aorta: No aortic aneurysm. No aortic dissection. Lungs: Nodule at right upper lobe measures up to 1.2 cm greatest dimension and is unchanged dating back to 2016. Suture anchors are seen at right humeral head. Impression: No acute findings. Pleural spaces: No pneumothorax. No pleural effusion. Heart: Mild prominence of pericardial fat. Coronary calcifications are noted. Lymph nodes: No enlarged lymph nodes. Bones/joints: See Lungs finding. Soft tissues: Unremarkable. PROCEDURE INFORMATION: Exam: CT Abdomen And Pelvis With Contrast Exam date and time: 12/03/2021 1:21 AM Age: 81 years old Clinical indication: Abdominal pain; Other: Back; Prior surgery; Surgery date: 6+ months; Surgery type: Cholecystectomy; Additional info: Abd pain TECHNIQUE: Imaging protocol: Computed tomography of the abdomen and pelvis with contrast. Radiation optimization: All CT scans at this facility use at least one of these dose optimization techniques: automated exposure control; mA and/or kV adjustment per patient size (includes targeted exams where dose is matched to clinical indication); or iterative reconstruction. Contrast material: OMNI 350; Contrast volume: 95 ml; Contrast route: INTRAVENOUS (IV); COMPARISON: CT kidney stone [id number] 04/08/2021 6:29 PM RADIATION DOSE METRICS: Total DLP (mGy-cm): 1275.6 FINDINGS: Liver: Small lesion in right hepatic lobe is unchanged back at least to 2018. Gallbladder and bile ducts: Cholecystectomy. Pancreas: Normal. No ductal dilation. Spleen: Normal. No splenomegaly. Adrenal glands: Normal. No mass. Kidneys and ureters: Bilateral renal lesions are suggestive of benign lesions; the dense or intermediately dense findings are unchanged dating back at least to 2018. Stomach and bowel: Radiodense material in stomach can be correlated with ingestion of small quantity of therapeutic material or enteric contrast. There is moderate gastric fluid. Duodenal diverticulum noted. Fluid is seen in nondilated small bowel and colon. Colonic diverticuli are noted. Appendix: No evidence of appendicitis. Intraperitoneal space: Unremarkable. No free air. No significant fluid collection. Vasculature: Vascular calcifications are noted. No abdominal aortic aneurysm. Lymph nodes: Unremarkable. No enlarged lymph nodes. Urinary bladder: Unremarkable as visualized. Reproductive: Unremarkable as visualized. Bones/joints: No acute fracture. Soft tissues: Fatty left inguinal hernia noted. CT/CT angio chest w abd pel w con IMPRESSION: No acute findings. IMPRESSION: Bowel fluid can be correlated with infectious process or other etiology of secretory or osmotic diarrhea. Additional details as above.
[2021-12-03] MEDS: HYDROmorphone 1 mg/mL INJ 1 mL 0.5 MG IVP (01:36)
[2021-12-03] MEDS: iohexol 350 mg/mL 100 mL Btl IV (01:36)
[2021-12-03 02:56] LABS: Troponin 5 2HR 10.97 ng/L (0-15)
[2021-12-03 03:08] LABS: Troponin 5 2HR Delta 0.97 ABS# (0-10)
--- NOTE | 2021-12-03 03:18 | PC.NURSE ---
0305 orders acknowledged for patient's discharge; unable to discharge patient at this time due to the administration of 0.5 mg of IV Dilaudid @ 0136 and patient's only way home is to drive himself; will continue to monitor
== END 2021-12-03 06:20 | disposition home or self-care (01) ==
PROVIDERS: Emergency Provider Emergency Medicine; PCP Internal Medicine
DX: R10.9 Unspecified abdominal pain (principal); R07.9 Chest pain, unspecified; I10 Essential (primary) hypertension; E78.5 Hyperlipidemia, unspecified; I25.10 Atherosclerotic heart disease of native coronary artery without angina pectoris; I44.0 Atrioventricular block, first degree; Z79.82 Long term (current) use of aspirin
CPT/HCPCS: 71045; 71275; 74177; 80053; 83690; 84484; 85025; 93005; 96374; 96375; 99285; J1170; J2405; Q9967

== ENCOUNTER → 2021-12-05 15:17 | Outpatient (BNVA) | payer MEDICARE, MEDICAID, SELFPAY | PROVIDERS: PCP Internal Medicine; Visit Provider Internal Medicine | DX: K22.70 Barrett's esophagus without dysplasia (principal); R41.3 Other amnesia; Z09 Encounter for follow-up examination after completed treatment for conditions other than malignant neoplasm | CPT/HCPCS: 80053; 82607; 82746; 84443; 85025 ==

== ENCOUNTER 2022-01-30 04:11 | Emergency (ER) | payer MEDICARE, MEDICAID, SELFPAY ==
[2022-01-30 04:14] VITALS: BP 171/78; PULSE 86; RESP 16; TEMP 36.4; O2SAT 97
--- NOTE | 2022-01-30 04:19 | CTR_ITS ---
PROCEDURE INFORMATION: Exam: CT Abdomen And Pelvis Without Contrast Exam date and time: 01/30/2022 4:26 AM Age: 81 years old Clinical indication: Abdominal pain; Localized; Left lower quadrant (llq); Patient HX: C/O llq pain. History of nephrolithiasis. TECHNIQUE: Imaging protocol: Computed tomography of the abdomen and pelvis without contrast.The sensitivity and specificity for detection of intra-abdominal pathology is Radiation optimization: All CT scans at this facility use at least one of these dose optimization techniques: automated exposure control; mA and/or kV adjustment per patient size (includes targeted exams where dose is matched to clinical indication); or iterative reconstruction. Other technique: decreased due to lack of intravenous and oral contrast. COMPARISON: CT angio chest w abd pel w con 12/03/2021 1:21 AM RADIATION DOSE METRICS: Total DLP (mGy-cm): 824.44 FINDINGS: Lungs: 3-4 mm subpleural right lower lobe pulmonary nodule. Calcified granuloma noted in the right lower lobe. No consolidation. Heart: There are coronary artery calcifications. Liver: Hypodense lesion too small to characterize measuring 5 mm in the right hepatic lobe, no change. Gallbladder and bile ducts: Status post cholecystectomy. Pancreas: No ductal dilation. Spleen: No splenomegaly. Adrenal glands: Normal. No mass. Kidneys and ureters: Nonobstructing renal calculi. No calcified ureteral stones. No hydronephrosis. Multiple bilateral cortical renal lesions the larger hypodense lesions probably represents cysts. However, there are multiple indeterminate hyperdense lesions. Stomach and bowel: Colonic diverticulosis with thickening and mild stranding seen adjacent to the junction of the left and sigmoid colon suggestive of early acute diverticulitis. An underlying lesion cannot be excluded. No dilated bowel loops. No high-grade bowel obstruction. Appendix: No evidence of appendicitis. Intraperitoneal space: No free air. No significant fluid collection. Vasculature: Atherosclerotic changes of the aorta. Lymph nodes: No enlarged lymph nodes. Urinary bladder: Unremarkable as visualized. Reproductive: Prostate gland is enlarged. Bones/joints: Unremarkable. No acute fracture. Soft tissues: Small fat containing inguinal hernias. CT/CT kidney stone [id number] IMPRESSION: 1. Colonic diverticulosis with thickening and mild stranding seen adjacent to the junction of the left and sigmoid colon suggestive of early acute diverticulitis. An underlying lesion cannot be excluded. Further evaluation is suggested as clinically indicated. 2. Multiple bilateral cortical renal lesions the larger hypodense lesions probably represents cysts. However, there are multiple indeterminate hyperdense lesions. Nonemergent evaluation with renal ultrasound and/or MRI liver protocol may be helpful further characterization if not already performed. 3. 3-4 mm subpleural right lower lobe pulmonary nodule. For patients at low risk (minimal or absent history of smoking and of other known risk factors), no routine follow-up is indicated. For patients at high risk (history of smoking or of other known risk factors), consider optional CT Chest at 12 months. (Reference: Monty) References: Aleshahobeltran H, et al. Guidelines for Management of Incidental Pulmonary Nodules Detected on CT Images: From the Fleischner Society 2017. Radiology. 2017;284(1):228-243.
--- NOTE | 2022-01-30 04:20 | ED_ITS ---
HPI - Abdominal Pain General: Chief Complaint: Abdominal Pain Stated Complaint: left abdomen pain Time Seen by Provider: 01/30/22 04:14 Source: patient Mode of arrival: ambulatory Limitations: no limitations History of Present Illness: 81-year-old male who states that he has been having abdominal pain over the last 2 days he states it is worsened today states the pain is left lower quadrant denies any worsening proved factors he denies any fevers. He states his pain is currently a 5 out of 10. He denies any vomiting or diarrhea. Denies any dysuria. Associated Symptoms: Denies chills, dysuria and fever(s) Review of Systems Const: Denies: fever(s), chills, body aches or change in appetite Eyes: Denies: blurry vision or eye discomfort ENMT: Denies: throat pain or dental pain Card: Denies: chest pain Resp: Denies: dyspnea GI: Reports: abdominal pain : Denies: dysuria Musc: Denies: neck pain or back pain Skin/Breast: Denies: rash Neuro: Denies: headache(s) Psych: Denies: depression Daniel/Lymph: Denies: easy bruising All/Imm: Denies: urticaria PFSH ED PFSH: Medical History Atherosclerotic heart disease of [place] coronary artery without angina pectoris Benign essential HTN Calculus of kidney with calculus of ureter Chronic episodic atrial fibrillation Dyslipidemia (high LDL; low HDL) Fibromyalgia GERD (gastroesophageal reflux disease) History of atrial fibrillation History of colon polyps Insomnia Left ureteral calculus Lumbar disc disease Renal mass Surgical History History of cardiac cath History of cholecystectomy History of colonoscopy History of shoulder surgery Family History Brother No problems noted. Father , at age 93 Dementia Parkinsons Mother , at age 75 No problems noted. Denies family history of Diabetes CAD (coronary artery disease) Clotting disorder Chronic kidney disease (CKD) Suicide Anesthesia complication Bleeding disorder Lung disease Cancer Stroke Social History Smoking and tobacco status: never smoked Alcohol intake: current Alcohol intake frequency: holidays/special occasions only Housing: House Marital status: / Current occupational status: retired History of recent travel: No Physical Exam Const: COMMON NORMALS: no acute distress, patient oriented x3 and healthy appearing HENMT: COMMON NORMALS: normocephalic and atraumatic HEAD & SCALP: normocephalic and atraumatic Eye: COMMON NORMALS: Equal, round and reactive pupils present and EOMs intact bilaterally PUPIL: Yes Equal, round and reactive pupils present Neck/C-Spine: COMMON NORMALS: full ROM and supple Chest: COMMONS NORMALS: normal inspection of the chest and normal palpation of entire chest wall Resp: COMMON NORMALS: normal respiratory effort, No retractions, No use of accessory muscles and clear to auscultation bilaterally AUSCULTATION: clear to auscultation bilaterally Cardio: COMMON NORMALS: regular rate, regular rhythm and No murmurs present (Cardio) RATE: regular rate RHYTHM: regular rhythm GI: COMMON NORMALS: Normal to inspection, nondistended, normoactive bowel sounds present, Soft to palpation and no masses PALPATION: Yes Soft to palpation and Yes Tenderness to palpation present (GI) Details: LLQ Extremity: COMMON NORMALS: normal to inspection and full ROM Neuro: COMMON NORMALS: patient oriented x3, moves all extremities and no focal motor deficits Psych: COMMON NORMALS: mental status grossly normal, Normal thought process present and cooperative THOUGHT PROCESS: Normal thought process present Skin: COMMON NORMALS: no rashes or lesions noted and no wounds GENERAL SKIN EXAM: no rashes or lesions noted Course Vital Signs: Vital signs: Vital Signs Temperature 97.6 F 01/30/22 04:14 Pulse Rate 83 01/30/22 04:23 Respiratory Rate 16 01/30/22 04:37 Blood Pressure 171/78 01/30/22 04:14 Pulse Oximetry 98 01/30/22 04:23 Oxygen Delivery Me thod 01/30/22 04:23 MDM - Abdominal Pain Medical Decision Making Patient presents here with diverticulitis likely causing abdominal pain his exam here is benign he is nontoxic-appearing it is mild on CT I believe he is stable for discharge for treatment at home we will prescribe antibiotics he is to follow-up with PCP and return if worsening he understands agrees to plan. Lab Data 01/30/22 04:25 01/30/22 04:25 Labs/Radiology: Radiology Impressions Abdomen/Pelvis CT 01/30/22 04:19 IMPRESSION: 1. Colonic diverticulosis with thickening and mild stranding seen adjacent to the junction of the left and sigmoid colon suggestive of early acute diverticulitis. An underlying lesion cannot be excluded. Further evaluation is suggested as clinically indicated. 2. Multiple bilateral cortical renal lesions the larger hypodense lesions probably represents cysts. However, there are multiple indeterminate hyperdense lesions. Nonemergent evaluation with renal ultrasound and/or MRI liver protocol may be helpful further characterization if not already performed. 3. 3-4 mm subpleural right lower lobe pulmonary nodule. For patients at low risk (minimal or absent history of smoking and of other known risk factors), no routine follow-up is indicated. For patients at high risk (history of smoking or of other known risk factors), consider optional CT Chest at 12 months. (Reference: Monty) References: Monty Cooper, et al. Guidelines for Management of Incidental Pulmonary Nodules Detected on CT Images: From the Fleischner Society 2017. Radiology. 2017;284(1):228-243. Laboratory Results WBC 8.2 10^3/uL (4.0-10.0) 01/30/22 04:25 RBC 4.74 10^6/uL (4.1-5.3) 01/30/22 04:25 Hgb 15.7 g/dL (11.7-16.6) 01/30/22 04:25 Hct 45.9 % (42.0-52.0) 01/30/22 04:25 MCV 96.8 fl (80-94) H 01/30/22 04:25 MCH 33.1 pg (28.0-34.0) 01/30/22 04:25 MCHC 34.2 g/dL (30.0-36.0) 01/30/22 04:25 RDW 12.7 % (12.1-15.1) 01/30/22 04:25 Plt Count 211 10^3/cmm (130-400) 01/30/22 04:25 MPV 9.7 fL (7.4-10.4) 01/30/22 04:25 Neut % (Auto) 55.3 % 01/30/22 04:25 Lymph % (Auto) 28.6 % 01/30/22 04:25 Wood % (Auto) 11.3 % 01/30/22 04:25 Eos % (Auto) 3.9 % 01/30/22 04:25 Baso % (Auto) 0.5 % 01/30/22 04:25 Neut # (Auto) 4.55 10^3/uL (1.8-7.7) 01/30/22 04:25 Lymph # (Auto) 2.4 10^3/uL (0.8-4.8) 01/30/22 04:25 Wood # (Auto) 0.9 10^3/uL (0.2-0.9) 01/30/22 04:25 Eos # (Auto) 0.3 10^3/uL (0.0-0.8) 01/30/22 04:25 Baso # (Auto) 0.0 10^3/uL (0.0-0.1) 01/30/22 04:25 Nucleated RBC % (auto) 0 % 01/30/22 04:25 Nucleated RBCs # 0.0 /100WBC 01/30/22 04:25 Sodium 138 mmol/L (136-145) 01/30/22 04:25 Potassium 3.9 mmol/L (3.5-5.1) 01/30/22 04:25 Chloride 102 mmol/L (98-107) 01/30/22 04:25 Carbon Dioxide 25 mmol/L (22-29) 01/30/22 04:25 Anion Gap 14.9 (5-19) 01/30/22 04:25 BUN 12 mg/dL (8-23) 01/30/22 04:25 Creatinine 1.2 mg/dL (0.7-1.2) 01/30/22 04:25 GFR Calculation Not Reportable 01/30/22 04:25 Glucose 102 mg/dL (65-115) 01/30/22 04:25 Calculated Osmolality 286 mOsm/kg (285-295) 01/30/22 04:25 Calcium 9.5 mg/dL (8.5-10.5) 01/30/22 04:25 Total Bilirubin 0.5 mg/dL (0.15-1.2) 01/30/22 04:25 AST 14 U/L (0-40) 01/30/22 04:25 ALT 8 U/L (0-41) 01/30/22 04:25 Alkaline Phosphatase 88 U/L (40-130) 01/30/22 04:25 Total Protein 7.8 g/dL (6.6-8.7) 01/30/22 04:25 Albumin 4.3 g/dL (3.5-5.2) 01/30/22 04:25 Globulin 3.5 g/dL (1.3-4.6) 01/30/22 04:25 Lipase 58 U/L (13-60) 01/30/22 04:25 Discharge Plan Discharge Patient Disposition: Home Clinical Impression: Diverticulitis Condition: Stable Prescriptions: New hydrocodone-acetaminophen 5-325 mg tablet 1 tab PO Q6H PRN (Reason: pain) Qty: 14 0RF metronidazole 500 mg tablet 500 mg PO Q8H 7 Days Qty: 21 0RF Cipro 500 mg tablet 500 mg PO BID Qty: 14 0RF ondansetron 4 mg tablet,disintegrating 4 mg PO Q6H PRN (Reason: nausea and vomiting) Qty: 14 0RF No Action pantoprazole 40 mg tablet,delayed release (DR/EC) 40 mg PO QAM Qty: 90 3RF cyanocobalamin (vitamin B-12) 1,000 mcg/mL solution 1,000 mcg SUBCUT .Monthly Qty: 10 3RF Rx Instructions: Do weekly for the first month. Dispense appropriate needles and syringes. levothyroxine [Synthroid] 25 mcg tablet 25 mcg PO DAILY Qty: 90 3RF amlodipine 5 mg tablet 5 mg PO DAILY Qty: 90 3RF ezetimibe [Zetia] 10 mg tablet 10 mg PO QAM Qty: 90 3RF losartan 100 mg tablet 100 mg PO QAM Qty: 90 3RF vitamin E 100 unit Capsule 100 unit PO DAILY Qty: 0 aspirin 81 mg Tablet,Delayed Release (Dr/Ec) 81 mg PO QAM celecoxib [Celebrex] 100 mg capsule 100 mg PO BID Qty: 20 0RF Discharge Orders: Discharge ED (Routine); Ordered 01/30/22 Ordered By: Chaz Lopez Referrals: Denis Nowak MD [Primary Care Provider] - 1-3 days Discharge Diet: Advance as tolerated Discharge Activity: Resume usual activity Patient Instructions: Diverticulitis (ED), Opioid Safety Coding Level of Care Code ED Reinsurance Claim Analyst for Chg Fwd Exam Comprehensive
[2022-01-30 04:23] VITALS: PULSE 83; RESP 16; O2SAT 98
[2022-01-30 04:29] LABS: Basophils % 0.5 %; Eosinophils # 0.3 10^3/uL (0.0-0.8); Eosinophils % 3.9 %; Hematocrit 45.9 % (42.0-52.0); Hemoglobin 15.7 g/dL (11.7-16.6); Lymphocytes # 2.4 10^3/uL (0.8-4.8); Lymphocytes % 28.6 %; Mean Corpuscular HGB Conc 34.2 g/dL (30.0-36.0); Mean Corpuscular Hemoglobin 33.1 pg (28.0-34.0); Mean Corpuscular Volume 96.8 fl (80-94); Mean Platelet Volume 9.7 fL (7.4-10.4); Monocytes # 0.9 10^3/uL (0.2-0.9); Monocytes % 11.3 %; Neutrophils # 4.55 10^3/uL (1.8-7.7); Neutrophils % 55.3 %; Nucleated Red Blood Cells % 0 %; Platelet Count 211 10^3/cmm (130-400); Red Blood Count 4.74 10^6/uL (4.1-5.3); Red Cell Distribution Width 12.7 % (12.1-15.1); White Blood Count 8.2 10^3/uL (4.0-10.0)
[2022-01-30] MEDS: sodium chloride 0.9% 1,000 ML 999 ML IV (04:35)
[2022-01-30] MEDS: ondansetron 2 mg/ML SDV 2 mL 4 MG IVP (04:35)
[2022-01-30 04:37] VITALS: RESP 16
[2022-01-30] MEDS: morphine 4 mg/mL SDV 1 mL IVP (04:37)
[2022-01-30 04:46] LABS: Alanine Aminotransferase 8 U/L (0-41); Albumin Level 4.3 g/dL (3.5-5.2); Alkaline Phosphatase 88 U/L (40-130); Anion Gap 14.9 (5-19); Aspartate Amino Transferase 14 U/L (0-40); Blood Urea Nitrogen 12 mg/dL (8-23); Calcium 9.5 mg/dL (8.5-10.5); Carbon Dioxide 25 mmol/L (22-29); Chloride 102 mmol/L (98-107); Globulin 3.5 g/dL (1.3-4.6); Glucose 102 mg/dL (65-115); Lipase 58 U/L (13-60); Osmolality Calculated 286 mOsm/kg (285-295); Potassium 3.9 mmol/L (3.5-5.1); Sodium 138 mmol/L (136-145); Total Bilirubin 0.5 mg/dL (0.15-1.2); Total Protein 7.8 g/dL (6.6-8.7)
[2022-01-30 05:32] LABS: Urine Color Yellow (Yellow)
[2022-01-30 05:33] LABS: Add Urine Microscopic? YES; Bilirubin Urine Neg (Negative); Blood Urine 2+ (Negative); Glucose Urine UA Norm (Normal); Ketones Urine Negative (Negative); Leukocyte Esterase Urine Negative (Negative); Nitrate Urine Negative (Negative); Protein Urine Neg (Negative); RBC Urine 0-4 /hpf (0-2); Urine Appearance Clear (CLEAR); Urobilinogen Urine Norm (Negative); pH Urine 5 (5-7)
[2022-01-30 05:34] LABS: Add Urine Culture? No; Mucus Urine 1+ /hpf; Squamous Epithelial Cell Urine 0-4 /hpf (0-5)
[2022-01-30 06:00] VITALS: BP 130/74; PULSE 61; RESP 16; O2SAT 97
== END 2022-01-30 07:56 | disposition home or self-care (01) ==
PROVIDERS: Emergency Provider Emergency Medicine; PCP Internal Medicine
DX: K57.92 Diverticulitis of intestine, part unspecified, without perforation or abscess without bleeding (principal); Z79.82 Long term (current) use of aspirin; I25.10 Atherosclerotic heart disease of native coronary artery without angina pectoris; I10 Essential (primary) hypertension; E78.5 Hyperlipidemia, unspecified
CPT/HCPCS: 74176; 80053; 81001; 83690; 85025; 96361; 96374; 96375; 99285; J2270; J2405; J7030

== ENCOUNTER 2022-05-07 08:52 | Emergency (ER) | payer MEDICARE, MEDICAID, SELFPAY ==
[2022-05-07] VITALS (7 sets, daily range): BP systolic 126–186; BP diastolic 71–102; PULSE 76–94; RESP 16–19; TEMP 36.5; O2SAT 92–97; BMI 30.4
--- NOTE | 2022-05-07 09:06 | XR_ITS ---
WS: [id number] Chest 2 views, 05/07/2022 Clinical Data: cough Comparison: Portable chest, 12/03/2021 Findings: No nodules, masses or effusions are seen. The heart is normal. The pulmonary vascularity is not increased. No pneumonia or pneumothorax is seen. The aortic arch and descending thoracic aorta s how tortuosity. There are orthopedic anchors in the right humeral head. XR/XR chest 2V* [id number] Impression: Atherosclerosis.
--- NOTE | 2022-05-07 09:14 | ECG_ITS ---
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 Measurements Intervals [place] Rate: 83 P: 57 MA: 203 QRS: -5 QRSD: 85 T: 48 QT: 346 QTc: 408 Interpretive Statements SINUS RHYTHM Compared to ECG 12/03/2021 00:12:49 Myocardial infarct finding no longer present Electronically Signed On 05-08-2022 14:07:23 PETROLEUM ANALYST by Kavon Cordoba M.D. [id number]
[2022-05-07] MEDS: albuterol 2.5 mg/3 mL Neb INHALATION (09:43)
[2022-05-07 09:45] LABS: Influenza A by IFA negative (Negative); Influenza B by IFA negative (Negative); SARS Covid-2 Antigen negative (Negative)
[2022-05-07 10:05] LABS: Basophils % 0.4 %; Eosinophils # 0.3 10^3/uL (0.0-0.8); Eosinophils % 4.9 %; Hematocrit 44.5 % (42.0-52.0); Hemoglobin 14.8 g/dL (11.7-16.6); Lymphocytes # 1.3 10^3/uL (0.8-4.8); Mean Corpuscular HGB Conc 33.3 g/dL (30.0-36.0); Mean Corpuscular Hemoglobin 32.1 pg (28.0-34.0); Mean Corpuscular Volume 96.5 fl (80-94); Mean Platelet Volume 9.8 fL (7.4-10.4); Monocytes # 0.7 10^3/uL (0.2-0.9); Monocytes % 13.6 %; Neutrophils # 2.97 10^3/uL (1.8-7.7); Neutrophils % 55.9 %; Nucleated Red Blood Cells % 0 %; Platelet Count 195 10^3/cmm (130-400); Red Blood Count 4.61 10^6/uL (4.1-5.3); Red Cell Distribution Width 13.5 % (12.1-15.1); White Blood Count 5.3 10^3/uL (4.0-10.0)
[2022-05-07 10:26] LABS: Alanine Aminotransferase 10 U/L (0-41); Albumin Level 4.1 g/dL (3.5-5.2); Alkaline Phosphatase 95 U/L (40-130); Anion Gap 14.8 (5-19); Aspartate Amino Transferase 18 U/L (0-40); Blood Urea Nitrogen 12 mg/dL (8-23); Carbon Dioxide 26 mmol/L (22-29); Chloride 102 mmol/L (98-107); Globulin 2.9 g/dL (1.3-4.6); Glucose 104 mg/dL (65-115); Osmolality Calculated 286 mOsm/kg (285-295); Potassium 4.8 mmol/L (3.5-5.1); Sodium 138 mmol/L (136-145); Total Bilirubin 0.6 mg/dL (0.15-1.2)
[2022-05-07 10:29] LABS: Troponin(5th) Baseline 10 ng/L (0-15)
--- NOTE | 2022-05-07 11:07 | ECG_ITS ---
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 Measurements Intervals [place] Rate: 69 P: -5 IA: 180 QRS: -8 QRSD: 92 T: 31 QT: 362 QTc: 390 Interpretive Statements SINUS RHYTHM WITH OCCASIONAL SUPRAVENTRICULAR PREMATURE COMPLEXES Compared to ECG 05/07/2022 09:14:35 No significant changes Electronically Signed On 05-08-2022 16:17:38 SHOPPER'S AIDE by Kavon Cordoba M.D. [id number]
--- NOTE | 2022-05-07 11:11 | ED_ITS ---
HPI - General Adult General: Chief complaint: General Medical Stated complaint: states flu-like symptoms Time Seen by Provider: 05/07/22 09:00 History of Present Illness: Patient is in today for flulike symptoms. He reports that since yesterday he has had a cough minimally productive. He reports that he has pain between his shoulder blades that is not bad . He rates his pain a 7 on a 0-to-10 scale but states it is not bad. Patient reports that he has noticed wheezing when he breathes deep he has a couple chills. He denies fever. Patient offers that the pain between his shoulder blades is a constant pain since yesterday. He denies that anything makes the pain better or worse. He reports it is just a dull pressure Associated symptoms: Deny chest pain, headache(s), nausea, palpitations, syncope or vomiting Review of Systems Const: Reports: chills and body aches; Denies: fever(s) Eyes: Denies: change in vision or blurry vision ENMT: Denies: throat pain Card: Denies: chest pain, palpitations, irregular heart rhythm, lightheadedness or syncope Resp: Reports: productive cough and wheezing; Denies: non-productive cough GI: Denies: abdominal pain, nausea or vomiting : Denies: flank pain, dysuria, urinary frequency, urinary urgency or urinary hesitancy Musc: Denies: neck pain or back pain Neuro: Denies: headache(s), numbness in extremities or weakness in extremities PFSH ED PFSH: Medical History Atherosclerotic heart disease of [place] coronary artery without angina pectoris Benign essential HTN Calculus of kidney with calculus of ureter Chronic episodic atrial fibrillation Dyslipidemia (high LDL; low HDL) Fibromyalgia GERD (gastroesophageal reflux disease) History of atrial fibrillation History of colon polyps Insomnia Left ureteral calculus Lumbar disc disease Renal mass Surgical History History of cardiac cath History of cholecystectomy History of colonoscopy History of shoulder surgery Family History Brother No problems noted. Father , at age 93 Dementia Parkinsons Mother , at age 75 No problems noted. Denies family history of Diabetes CAD (coronary artery disease) Clotting disorder Chronic kidney disease (CKD) Suicide Anesthesia complication Bleeding disorder Lung disease Cancer Stroke Social History Smoking and tobacco status: never smoked Alcohol intake: current Alcohol intake frequency: holidays/special occasions only Housing: House Marital status: / Current occupational status: retired Physical Exam Const: COMMON NORMALS: no acute distress, patient oriented x3 and alert GENERAL APPEARANCE: cooperative ORIENTATION/CONSCIOUSNESS: Yes awake, Yes oriented to person, Yes oriented to place and Yes oriented to time Eye: COMMON NORMALS: Equal, round and reactive pupils present, EOMs intact bilaterally and conjunctivae normal GENERAL EYE: appearance normal, both eyes and all related structures ALIGNMENT: Yes alignment normal CONJUNCTIVA: Yes conjunctivae normal SCLERA: sclerae normal PUPIL: Yes Equal, round and reactive pupils present Neck/C-Spine: COMMON NORMALS: full ROM Resp: COMMON NORMALS: normal respiratory effort, No retractions and No use of accessory muscles EFFORT & INSPECTION: Yes symmetric chest movement AUSCULTATION: wheezes expiratory wheezes and throughout Cardio: COMMON NORMALS: regular rate, regular rhythm, S1 normal heart sound present and S2 normal heart sound present RATE: regular rate RHYTHM: regular rhythm HEART SOUNDS: S1 normal heart sound present and S2 normal heart sound present GI: COMMON NORMALS: Normal to inspection, nondistended, normoactive bowel sounds present, Soft to palpation, non-tender, No hepatosplenomegaly present, no masses and no bruits INSPECTION: Yes normal to inspection PALPATION: Yes Soft to palpation and Yes No hepatosplenomegaly present : COMMON NORMALS: Yes no CVA tenderness BLADDER/KIDNEY EXAM: Yes no CVA tenderness Back/Pelvis: COMMON NORMALS: no CVA tenderness Neuro: COMMON NORMALS: patient oriented x3 SENSORIUM/ORIENTATION: Yes alert, Yes oriented to person, Yes oriented to place and Yes oriented to time Psych: COMMON NORMALS: cooperative Course Vital Signs: Vital signs: Vital Signs Temperature 97.7 F 05/07/22 08:56 Pulse Rate 76 05/07/22 13:13 Respiratory Rate 18 05/07/22 11:33 Blood Pressure 135/76 05/07/22 13:13 Pulse Oximetry 95 05/07/22 11:33 Oxygen Delivery Me thod 05/07/22 11:33 MDM - General Adult Medical Decision Making Differentials include cardiac chest pain, pneumonia, upper respiratory infection X-ray chest no acute cardiopulmonary changes?atherosclerosis Initial troponin is within normal limits. 2-hour repeat troponin? EKG shows sinus rhythm with no acute ST changes Responded well to albuterol nebulized treatment We will treat patient for upper respiratory infection. Discussed typical course of illness. Discussed conservative treatments at home. Follow-up with primary care provider as needed. Return to the ER for new or worsening symptoms Lab Data 05/07/22 09:42 05/07/22 09:42 Radiology Impressions Chest X-Ray 05/07/22 09:06 Impression: Atherosclerosis. Laboratory Results WBC 5.3 10^3/uL (4.0-10.0) 05/07/22 09:42 RBC 4.61 10^6/uL (4.1-5.3) 05/07/22 09:42 Hgb 14.8 g/dL (11.7-16.6) 05/07/22 09:42 Hct 44.5 % (42.0-52.0) 05/07/22 09:42 MCV 96.5 fl (80-94) H 05/07/22 09:42 MCH 32.1 pg (28.0-34.0) 05/07/22 09:42 MCHC 33.3 g/dL (30.0-36.0) 05/07/22 09:42 RDW 13.5 % (12.1-15.1) 05/07/22 09:42 Plt Count 195 10^3/cmm (130-400) 05/07/22 09:42 MPV 9.8 fL (7.4-10.4) 05/07/22 09:42 Neut % (Auto) 55.9 % 05/07/22 09:42 Lymph % (Auto) 25.0 % 05/07/22 09:42 Mcdonald % (Auto) 13.6 % 05/07/22 09:42 Eos % (Auto) 4.9 % 05/07/22 09:42 Baso % (Auto) 0.4 % 05/07/22 09:42 Neut # (Auto) 2.97 10^3/uL (1.8-7.7) 05/07/22 09:42 Lymph # (Auto) 1.3 10^3/uL (0.8-4.8) 05/07/22 09:42 Mcdonald # (Auto) 0.7 10^3/uL (0.2-0.9) 05/07/22 09:42 Eos # (Auto) 0.3 10^3/uL (0.0-0.8) 05/07/22 09:42 Baso # (Auto) 0.0 10^3/uL (0.0-0.1) 05/07/22 09:42 Nucleated RBC % (auto) 0 % 05/07/22 09:42 Nucleated RBCs # 0.0 /100WBC 05/07/22 09:42 Sodium 138 mmol/L (136-145) 05/07/22 09:42 Potassium 4.8 mmol/L (3.5-5.1) 05/07/22 09:42 Chloride 102 mmol/L (98-107) 05/07/22 09:42 Carbon Dioxide 26 mmol/L (22-29) 05/07/22 09:42 Anion Gap 14.8 (5-19) 05/07/22 09:42 BUN 12 mg/dL (8-23) 05/07/22 09:42 Creatinine 1.3 mg/dL (0.7-1.2) H 05/07/22 09:42 GFR Calculation Not Reportable 05/07/22 09:42 Glucose 104 mg/dL (65-115) 05/07/22 09:42 Calculated Osmolality 286 mOsm/kg (285-295) 05/07/22 09:42 Calcium 9.0 mg/dL (8.5-10.5) 05/07/22 09:42 Total Bilirubin 0.6 mg/dL (0.15-1.2) 05/07/22 09:42 AST 18 U/L (0-40) 05/07/22 09:42 ALT 10 U/L (0-41) 05/07/22 09:42 Alkaline Phosphatase 95 U/L (40-130) 05/07/22 09:42 Troponin T Baseline 10 ng/L (0-15) 05/07/22 09:42 Troponin T 120 Minute 10.24 ng/L (0-15) 05/07/22 11:42 Delta Troponin T 0.24 ABS# (0-10) 05/07/22 11:42 Total Protein 7.0 g/dL (6.6-8.7) 05/07/22 09:42 Albumin 4.1 g/dL (3.5-5.2) 05/07/22 09:42 Globulin 2.9 g/dL (1.3-4.6) 05/07/22 09:42 Influenza Type A Ag negative (Negative) 05/07/22 09:10 Influenza Type B Ag negative (Negative) 05/07/22 09:10 SARS-CoV-2 Ag (Rapid) negative (Negative) 05/07/22 09:10 Discharge Plan Discharge Patient Disposition: Home Clinical Impression: Acute upper respiratory infection Condition: Stable Prescriptions: New Ventolin HFA 90 mcg/actuation HFA aerosol inhaler 2 inh inhalation QID PRN (Reason: shortness of breath or wheezing) Qty: 6.7 0RF No Action amlodipine 5 mg tablet 5 mg PO DAILY Qty: 90 3RF ezetimibe [Zetia] 10 mg tablet 10 mg PO QAM Qty: 90 3RF losartan 100 mg tablet 100 mg PO QAM Qty: 90 3RF vitamin E 100 unit Capsule 100 unit PO DAILY Qty: 0 aspirin 81 mg Tablet,Delayed Release (Dr/Ec) 81 mg PO QAM Synthroid 25 mcg tablet 25 mcg PO QAM pantoprazole 40 mg tablet,delayed release (DR/EC) 40 mg PO DAILY PRN (Reason: Heartburn) Discharge Orders: Discharge ED (Routine); Ordered 05/07/22 Ordered By: Tiffany Joshua Referrals: Denis Nowak MD [Primary Care Provider] - Discharge Diet: Usual diet Discharge Activity: Resume usual activity Patient Instructions: Upper Respiratory Infection - Adult Activity Restrictions/Additional Instructions: Make sure that you are staying well-hydrated. Make sure that you are coughing and deep breathing numerous times an hour to keep the airways opened up. Use the albuterol inhaler every 4-6 hours as needed for wheezing or shortness of breath. Follow-up with primary care provider. Return to the ER as needed for any new or worsening symptoms Coding Level of Care Code ED Guest Relations Executive for Victor M Hale
--- NOTE | 2022-05-07 11:24 | PC.NURSE ---
report taken at [facility] @ 4600.
[2022-05-07 12:45] LABS: Troponin 5 2HR 10.24 ng/L (0-15)
[2022-05-07 13:14] LABS: Troponin 5 2HR Delta 0.24 ABS# (0-10)
== END 2022-05-07 13:16 | disposition home or self-care (01) ==
PROVIDERS: Emergency Provider Nurse Practitioner Family; PCP Internal Medicine
DX: J06.9 Acute upper respiratory infection, unspecified (principal); Z20.822 Contact with and (suspected) exposure to COVID-19; Z79.82 Long term (current) use of aspirin; I25.10 Atherosclerotic heart disease of native coronary artery without angina pectoris; I10 Essential (primary) hypertension; E78.5 Hyperlipidemia, unspecified
CPT/HCPCS: 36415; 71046; 80053; 84484; 85025; 87426; 87804; 93005; 94640; 99285; J7613

== ENCOUNTER 2022-07-21 05:44 | Emergency (ER) | payer MEDICARE, MEDICAID, SELFPAY ==
--- NOTE | 2022-07-21 05:49 | XRR_ITS ---
PROCEDURE INFORMATION: Exam: XR Chest Exam date and time: 07/21/2022 5:59 AM Age: 81 years old Clinical indication: Shortness of breath; Additional info: SOB TECHNIQUE: Imaging protocol: Radiologic exam of the chest. Views: 1 view. COMPARISON: CR XR chest 2V* [id number] 05/07/2022 9:19 AM FINDINGS: Lungs: Unremarkable. No consolidation. Pleural spaces: Unremarkable. No pleural effusion. No pneumothorax. Heart/Mediastinum: Unremarkable. No cardiomegaly. Bones/joints: Unremarkable. XR/XR chest 1V portable [id number] IMPRESSION: No acute findings. Stable appearance of the chest compared with 05/07/2022.
--- NOTE | 2022-07-21 05:49 | ECG_ITS ---
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 Measurements Intervals [place] Rate: 114 P: 0 MT: 0 QRS: 23 QRSD: 85 T: 43 QT: 306 QTc: 422 Interpretive Statements ATRIAL FIBRILLATION WITH RAPID VENTRICULAR RESPONSE LOW QRS VOLTAGE IN PRECORDIAL LEADS [QRS DEFLECTION < 1.0 mV IN CHEST LEADS] MINIMAL ST DEPRESSION [0.025+ mV ST DEPRESSION] ABNORMAL RHYTHM ECG Compared to ECG 05/07/2022 11:10:45 Low QRS voltage now present ST (T wave) deviation now present Sinus rhythm no longer present Electronically Signed On 07-21-2022 21:07:27 CDT by Kavon Cordoba M.D. [id number]
[2022-07-21 05:51] VITALS: BP 148/78; PULSE 114; RESP 18; TEMP 36.6; O2SAT 92
[2022-07-21 06:08] VITALS: BP 124/73; PULSE 113; RESP 14; O2SAT 95
[2022-07-21] MEDS: dilTIAZem 5 mg/mL SDV 5 mL 10 MG IVP (06:08)
[2022-07-21 06:30] VITALS: BP 111/73; PULSE 90; RESP 27; O2SAT 94
[2022-07-21 06:38] LABS: Basophils % 0.4 %; Eosinophils # 0.2 10^3/uL (0.0-0.8); Eosinophils % 3.1 %; Hematocrit 44.1 % (42.0-52.0); Hemoglobin 14.9 g/dL (11.7-16.6); Lymphocytes # 0.9 10^3/uL (0.8-4.8); Lymphocytes % 12.2 %; Mean Corpuscular HGB Conc 33.8 g/dL (30.0-36.0); Mean Corpuscular Hemoglobin 32.4 pg (28.0-34.0); Mean Corpuscular Volume 95.9 fl (80-94); Mean Platelet Volume 9.9 fL (7.4-10.4); Monocytes # 0.8 10^3/uL (0.2-0.9); Monocytes % 10.3 %; Neutrophils # 5.56 10^3/uL (1.8-7.7); Neutrophils % 73.7 %; Nucleated Red Blood Cells % 0 %; Platelet Count 219 10^3/cmm (130-400); Red Cell Distribution Width 13.2 % (12.1-15.1); White Blood Count 7.5 10^3/uL (4.0-10.0)
[2022-07-21 06:45] LABS: INR 1.06 (0.8-1.2)
--- NOTE | 2022-07-21 06:46 | W.ED.SOB ---
HPI - SOB/Dyspnea General: Chief Complaint: Shortness of Breath/Dyspnea Stated Complaint: SOB Time Seen by Provider: 07/21/22 05:48 Source: patient Mode of arrival: ambulatory Limitations: no limitations History of Present Illness: HPI Narrative: 81-year-old male states that he is having some shortness of breath throughout the night. Denies any cough or fever he does have a history of episodic A-fib he is in A-fib with RVR here and denies any chest pain patient is in no distress here his pulse ox is 97% on room air. Denies any leg swelling or leg pain. Associated symptoms: Reports palpitations; Deny abdominal pain, fever(s), nausea or vomiting Review of Systems Const: Denies: fever(s), chills, body aches or change in appetite Eyes: Denies: eye discomfort ENMT: Denies: throat pain or dental pain Card: Reports: palpitations Resp: Reports: dyspnea GI: Denies: abdominal pain, nausea, vomiting or diarrhea : Denies: dysuria Musc: Denies: neck pain or back pain Skin/Breast: Denies: rash Neuro: Denies: headache(s) Psych: Denies: depression PFSH ED PFSH: Medical History Atherosclerotic heart disease of [place] coronary artery without angina pectoris Benign essential HTN Calculus of kidney with calculus of ureter Chronic episodic atrial fibrillation Dyslipidemia (high LDL; low HDL) Fibromyalgia GERD (gastroesophageal reflux disease) History of atrial fibrillation History of colon polyps Insomnia Left ureteral calculus Lumbar disc disease Renal mass Surgical History History of cardiac cath History of cholecystectomy History of colonoscopy History of shoulder surgery Family History Brother No problems noted. Father , at age 93 Dementia Parkinsons Mother , at age 75 No problems noted. Denies family history of Diabetes CAD (coronary artery disease) Clotting disorder Chronic kidney disease (CKD) Suicide Anesthesia complication Bleeding disorder Lung disease Cancer Stroke Social History Smoking and tobacco status: never smoked Alcohol intake: current Alcohol intake frequency: holidays/special occasions only Substance/Drug Use: never Housing: House Marital status: / Current occupational status: retired Physical Exam Const: COMMON NORMALS: no acute distress, patient oriented x3 and healthy appearing HENMT: COMMON NORMALS: normocephalic and atraumatic HEAD & SCALP: normocephalic and atraumatic Eye: COMMON NORMALS: conjunctivae normal CONJUNCTIVA: Yes conjunctivae normal Neck/C-Spine: COMMON NORMALS: full ROM and supple Chest: COMMONS NORMALS: normal inspection of the chest and normal palpation of entire chest wall Resp: COMMON NORMALS: normal respiratory effort, No retractions, No use of accessory muscles and clear to auscultation bilaterally AUSCULTATION: clear to auscultation bilaterally Cardio: COMMON NORMALS: No murmurs present (Cardio) RATE: tachycardic RHYTHM: abnormal rhythm irregularly irregular GI: COMMON NORMALS: Normal to inspection, nondistended, normoactive bowel sounds present, Soft to palpation, non-tender and no masses PALPATION: Yes Soft to palpation Extremity: COMMON NORMALS: normal to inspection and full ROM Neuro: COMMON NORMALS: patient oriented x3, moves all extremities and no focal motor deficits Psych: COMMON NORMALS: mental status grossly normal, Normal thought process present and cooperative THOUGHT PROCESS: Normal thought process present Skin: COMMON NORMALS: no rashes or lesions noted and no wounds GENERAL SKIN EXAM: no rashes or lesions noted Course Vital Signs: Vital signs: Vital Signs Temperature 97.8 F 07/21/22 05:51 Pulse Rate 90 07/21/22 06:30 Respiratory Rate 27 H 07/21/22 06:30 Blood Pressure 111/73 07/21/22 06:30 Pulse Oximetry 94 07/21/22 06:30 Oxygen Delivery Me thod Room Air 07/21/22 06:30 MDM - SOB/Dyspnea Medical Decision Making Patient presents here with some dyspnea palpitations likely due to his A-fib and his heart rates in the 80s after Cardizem his symptoms of complete resolved and no longer has any dyspnea never had any chest pain he has no signs of pulmonary embolism his x-ray here is normal no signs of pneumonia we will start him on metoprolol he is to follow-up with his PCP in 3 to 5 days return if worsening he understands agrees to plan. Lab Data 07/21/22 06:04 07/21/22 06:04 Labs/Radiology: Laboratory Results WBC 7.5 10^3/uL (4.0-10.0) 07/21/22 06:04 RBC 4.60 10^6/uL (4.1-5.3) 07/21/22 06:04 Hgb 14.9 g/dL (11.7-16.6) 07/21/22 06:04 Hct 44.1 % (42.0-52.0) 07/21/22 06:04 MCV 95.9 fl (80-94) H 07/21/22 06:04 MCH 32.4 pg (28.0-34.0) 07/21/22 06:04 MCHC 33.8 g/dL (30.0-36.0) 07/21/22 06:04 RDW 13.2 % (12.1-15.1) 07/21/22 06:04 Plt Count 219 10^3/cmm (130-400) 07/21/22 06:04 MPV 9.9 fL (7.4-10.4) 07/21/22 06:04 Neut % (Auto) 73.7 % 07/21/22 06:04 Lymph % (Auto) 12.2 % 07/21/22 06:04 [place] % (Auto) 10.3 % 07/21/22 06:04 Eos % (Auto) 3.1 % 07/21/22 06:04 Baso % (Auto) 0.4 % 07/21/22 06:04 Neut # (Auto) 5.56 10^3/uL (1.8-7.7) 07/21/22 06:04 Lymph # (Auto) 0.9 10^3/uL (0.8-4.8) 07/21/22 06:04 [place] # (Auto) 0.8 10^3/uL (0.2-0.9) 07/21/22 06:04 Eos # (Auto) 0.2 10^3/uL (0.0-0.8) 07/21/22 06:04 Baso # (Auto) 0.0 10^3/uL (0.0-0.1) 07/21/22 06:04 Nucleated RBC % (auto) 0 % 07/21/22 06:04 Nucleated RBCs # 0.0 /100WBC 07/21/22 06:04 PT 14.10 SECONDS (12.1-14.9) 07/21/22 06:04 INR 1.06 (0.8-1.2) 07/21/22 06:04 Sodium 137 mmol/L (136-145) 07/21/22 06:04 Potassium 4.0 mmol/L (3.5-5.1) 07/21/22 06:04 Chloride 105 mmol/L (98-107) 07/21/22 06:04 Carbon Dioxide 22 mmol/L (22-29) 07/21/22 06:04 Anion Gap 14.0 (5-19) 07/21/22 06:04 BUN 12 mg/dL (8-23) 07/21/22 06:04 Creatinine 1.3 mg/dL (0.7-1.2) H 07/21/22 06:04 GFR Calculation Not Reportable 07/21/22 06:04 Glucose 107 mg/dL (65-115) 07/21/22 06:04 Calculated Osmolality 284 mOsm/kg (285-295) L 07/21/22 06:04 Calcium 8.7 mg/dL (8.5-10.5) 07/21/22 06:04 Total Bilirubin 0.7 mg/dL (0.15-1.2) 07/21/22 06:04 AST 14 U/L (0-40) 07/21/22 06:04 ALT 8 U/L (0-41) 07/21/22 06:04 Alkaline Phosphatase 82 U/L (40-130) 07/21/22 06:04 NT-Pro-B Natriuret Pep 1178 pg/mL (0-450) H 07/21/22 06:04 Total Protein 7.2 g/dL (6.6-8.7) 07/21/22 06:04 Albumin 4.0 g/dL (3.5-5.2) 07/21/22 06:04 Globulin 3.2 g/dL (1.3-4.6) 07/21/22 06:04 Discharge Plan Discharge Patient Disposition: Home Clinical Impression: A-fib, Dyspnea Condition: Stable Prescriptions: New metoprolol succinate 25 mg capsule,sprinkle,ER 24hr 25 mg PO DAILY Qty: 30 0RF No Action amlodipine 5 mg tablet 5 mg PO DAILY Qty: 90 3RF ezetimibe [Zetia] 10 mg tablet 10 mg PO QAM Qty: 30 0RF Rx Instructions: patient needs follow up for future refills losartan 100 mg tablet 100 mg PO QAM Qty: 30 0RF Rx Instructions: patient needs follow up for future refills vitamin E 100 unit Capsule 100 unit PO DAILY Qty: 0 aspirin 81 mg Tablet,Delayed Release (Dr/Ec) 81 mg PO QAM Synthroid 25 mcg tablet 25 mcg PO QAM pantoprazole 40 mg tablet,delayed release (DR/EC) 40 mg PO DAILY PRN (Reason: Heartburn) Ventolin HFA 90 mcg/actuation HFA aerosol inhaler 2 inh inhalation QID PRN (Reason: shortness of breath or wheezing) Qty: 6.7 0RF Discharge Orders: Discharge ED (Routine); Ordered 07/21/22 Ordered By: Chaz Lopez Referrals: Denis Nowak MD [Primary Care Provider] - 1-3 days Discharge Diet: Advance as tolerated Discharge Activity: Resume usual activity Patient Instructions: A-fib (Atrial Fibrillation) (ED), Dyspnea (ED) Coding Level of Care Code ED Station Manager for Victor M Hale
[2022-07-21 06:59] LABS: Alanine Aminotransferase 8 U/L (0-41); Alkaline Phosphatase 82 U/L (40-130); Aspartate Amino Transferase 14 U/L (0-40); Blood Urea Nitrogen 12 mg/dL (8-23); Calcium 8.7 mg/dL (8.5-10.5); Carbon Dioxide 22 mmol/L (22-29); Chloride 105 mmol/L (98-107); Globulin 3.2 g/dL (1.3-4.6); Glucose 107 mg/dL (65-115); NT Pro B Type Natriuretic Pept 1178 pg/mL (0-450); Osmolality Calculated 284 mOsm/kg (285-295); Sodium 137 mmol/L (136-145); Total Bilirubin 0.7 mg/dL (0.15-1.2); Total Protein 7.2 g/dL (6.6-8.7)
[2022-07-21 07:36] VITALS: BP 114/71; PULSE 88; RESP 19; O2SAT 91
== END 2022-07-21 07:40 | disposition home or self-care (01) ==
PROVIDERS: Emergency Provider Emergency Medicine; PCP Internal Medicine
DX: I48.91 Unspecified atrial fibrillation (principal); R06.00 Dyspnea, unspecified; Z79.82 Long term (current) use of aspirin; I25.10 Atherosclerotic heart disease of native coronary artery without angina pectoris; I10 Essential (primary) hypertension; E78.5 Hyperlipidemia, unspecified
CPT/HCPCS: 71045; 80053; 83880; 85025; 85610; 93005; 96374; 99285; J3490

== ENCOUNTER 2022-08-13 14:00 | Emergency (ER) | payer MEDICARE, MEDICAID, SELFPAY ==
[2022-08-13 14:39] VITALS: BP 173/98; PULSE 101; RESP 14; TEMP 36.8; O2SAT 96; BMI 30.4
--- NOTE | 2022-08-13 14:53 | XRR_ITS ---
PROCEDURE INFORMATION: Exam: XR Chest Exam date and time: 08/13/2022 3:07 PM Age: 81 years old Clinical indication: Pain; Other: Mid back/shoulder; Additional info: R shoulder pain TECHNIQUE: Imaging protocol: Radiologic exam of the chest. Views: 1 view. COMPARISON: CR (CHEST, ) 07/21/2022 5:59 AM FINDINGS: Lungs: Unremarkable. No consolidation. Pleural spaces: Unremarkable. No pleural effusion. No pneumothorax. Heart/Mediastinum: Unremarkable. No cardiomegaly. Bones/joints: Unremarkable. XR/XR chest 1V portable [id number] IMPRESSION: No acute findings.
--- NOTE | 2022-08-13 14:54 | W.ED.EXTPRO ---
HPI - Extremity Problem General: Chief complaint: Back Pain/Injury Stated complaint: upper back pain Time Seen by Provider: 08/13/22 14:46 Source: patient Mode of arrival: ambulatory Limitations: no limitations History of Present Illness: Patient is an 81-year-old male who presents to ED today with a complaint of pain near his right shoulder blade. He states pain began yesterday while at rest. He states it is not my shoulder as he proceeds to move his shoulder joint all around. He states it feels deeper inside . Looks like patient has been seen here previously for thoracic and scapular discomforts. Patient is not having any chest pain. He does not complain of any shortness of breath or difficulty breathing. He has not had any recent injury or traumas or lifting/straining injuries. MD Complaint: extremity pain Onset (ago): day(s) (yesterday) Pain Consistency: constant Location: right and upper extremity Quality: sharp Radiation: none Relieving factors: nothing Exacerbating factors: nothing Associated symptoms: Reports no associated symptoms; Deny chest pain, fever(s) or rash Review of Systems Const: Denies: fever(s), chills, body aches, fatigue or malaise Card: Reports: irregular heart rhythm (hx of atrial fib); Denies: chest pain, palpitations, edema, lightheadedness, syncope, pre-syncope, dyspnea on exertion, orthopnea, leg pain with exertion or acrocyanosis Resp: Reports: pain on inspiration; Denies: dyspnea, productive cough, wheezing, hemoptysis or chest congestion GI: Denies: abdominal pain, nausea, vomiting or diarrhea Musc: Reports: joint pain (R posterior shoulder); Denies: neck pain, back pain, extremity pain, extremity swelling, joint swelling, joint redness or joint warmth Skin/Breast: Denies: rash Neuro: Denies: headache(s), numbness in extremities, weakness in extremities or sensory changes PFSH ED PFSH: Medical History Atherosclerotic heart disease of [place] coronary artery without angina pectoris Benign essential HTN Calculus of kidney with calculus of ureter Chronic episodic atrial fibrillation Dyslipidemia (high LDL; low HDL) Fibromyalgia GERD (gastroesophageal reflux disease) History of atrial fibrillation History of colon polyps Insomnia Left ureteral calculus Lumbar disc disease Renal mass Surgical History History of cardiac cath History of cholecystectomy History of colonoscopy History of shoulder surgery Family History Brother No problems noted. Father , at age 93 Dementia Parkinsons Mother , at age 75 No problems noted. Denies family history of Diabetes CAD (coronary artery disease) Clotting disorder Chronic kidney disease (CKD) Suicide Anesthesia complication Bleeding disorder Lung disease Cancer Stroke Social History Smoking and tobacco status: never smoked Alcohol intake: current Alcohol intake frequency: holidays/special occasions only Substance/Drug Use: never Housing: House Marital status: / Current occupational status: retired Physical Exam Const: COMMON NORMALS: no acute distress, average body habitus, patient oriented x3, no limitations, healthy appearing, alert and well nourished HENMT: COMMON NORMALS: normocephalic and atraumatic HEAD & SCALP: normal to inspection, normocephalic and atraumatic Neck/C-Spine: COMMON NORMALS: full ROM, no lymphadenopathy, supple, no meningeal signs and no JVD Chest: COMMONS NORMALS: normal inspection of the chest and normal palpation of entire chest wall Resp: COMMON NORMALS: normal respiratory effort and clear to auscultation bilaterally AUSCULTATION: clear to auscultation bilaterally Cardio: COMMON NORMALS: no JVD and regular rate RATE: regular rate RHYTHM: abnormal rhythm irregularly irregular GI: COMMON NORMALS: Normal to inspection, nondistended, normoactive bowel sounds present, Soft to palpation, non-tender, No hepatosplenomegaly present and no masses PALPATION: Yes Soft to palpation and Yes No hepatosplenomegaly present : COMMON NORMALS: Yes no CVA tenderness BLADDER/KIDNEY EXAM: Yes no CVA tenderness Back/Pelvis: COMMON NORMALS: no CVA tenderness, thoracic and lumbar spine normal to inspection, no thoracic nor lumbar tenderness and thoraco-lumbar ROM normal Extremity: COMMON NORMALS: normal to inspection, full ROM, capillary refill normal and no joint enlargement GENERAL: Yes normal exam except as noted LEFT UPPER EXTREMITY: Yes shoulder joint (normal ROM; pain is not reproducible with palpation) Left shoulder joint: Yes neurovascular exam (normal) Neuro: DELMY COMA SCALE: document GCS findings Delmy coma scale eye opening: Spontaneous [place] coma scale verbal response: Orientated [place] coma scale motor response: Obey commands Delmy coma scale total score: 15 COMMON NORMALS: patient oriented x3, moves all extremities, no focal motor deficits and no sensory deficits noted SENSORIUM/ORIENTATION: Yes alert MENINGEAL SIGNS: Yes no meningeal signs MOTOR EXAM: 5/5 motor strength present throughout Skin: COMMON NORMALS: no rashes or lesions noted GENERAL SKIN EXAM: no rashes or lesions noted Course Vital Signs: Vital signs: Vital Signs Temperature 98.2 F 08/13/22 14:39 Pulse Rate 79 08/13/22 17:00 Respiratory Rate 16 08/13/22 17:00 Blood Pressure 149/64 08/13/22 17:00 Pulse Oximetry 95 08/13/22 17:00 Oxygen Delivery Me thod Room Air 08/13/22 17:00 MDM - Extremity (Nontraumatic) Medical Decision Making Patient here with nonreproducible right scapular pain. Patient appears in no acute distress. His vital signs are stable. Blood work including baseline and repeat troponins are nonconcerning. EKG showing his known chronic atrial fibrillation-rate controlled. CXR showing no acute findings. Looking at previous documentation he has been here several times for complaints of thoracic region and scapular discomforts. At this time I would have a low suspicion that symptoms are secondary to any type of cardiac etiology/angina equivalent. Patient states he is going to follow-up with his PCP Dr. Nowak. He is stable for discharge from an ED standpoint. Lab Data 08/13/22 15:12 08/13/22 15:12 Radiology Impressions Chest X-Ray 08/13/22 14:53 IMPRESSION: No acute findings. Laboratory Results WBC 7.6 10^3/uL (4.0-10.0) 08/13/22 15:12 RBC 4.57 10^6/uL (4.1-5.3) 08/13/22 15:12 Hgb 14.8 g/dL (11.7-16.6) 08/13/22 15:12 Hct 44.5 % (42.0-52.0) 08/13/22 15:12 MCV 97.4 fl (80-94) H 08/13/22 15:12 MCH 32.4 pg (28.0-34.0) 08/13/22 15:12 MCHC 33.3 g/dL (30.0-36.0) 08/13/22 15:12 RDW 12.9 % (12.1-15.1) 08/13/22 15:12 Plt Count 198 10^3/cmm (130-400) 08/13/22 15:12 MPV 9.8 fL (7.4-10.4) 08/13/22 15:12 Neut % (Auto) 61.0 % 08/13/22 15:12 Lymph % (Auto) 23.6 % 08/13/22 15:12 [place] % (Auto) 13.4 % 08/13/22 15:12 Eos % (Auto) 1.0 % 08/13/22 15:12 Baso % (Auto) 0.7 % 08/13/22 15:12 Neut # (Auto) 4.65 10^3/uL (1.8-7.7) 08/13/22 15:12 Lymph # (Auto) 1.8 10^3/uL (0.8-4.8) 08/13/22 15:12 [place] # (Auto) 1.0 10^3/uL (0.2-0.9) H 08/13/22 15:12 Eos # (Auto) 0.1 10^3/uL (0.0-0.8) 08/13/22 15:12 Baso # (Auto) 0.1 10^3/uL (0.0-0.1) 08/13/22 15:12 Nucleated RBC % (auto) 0 % 08/13/22 15:12 Nucleated RBCs # 0.0 /100WBC 08/13/22 15:12 Sodium 138 mmol/L (136-145) 08/13/22 15:12 Potassium 4.1 mmol/L (3.5-5.1) 08/13/22 15:12 Chloride 103 mmol/L (98-107) 08/13/22 15:12 Carbon Dioxide 23 mmol/L (22-29) 08/13/22 15:12 Anion Gap 16.1 (5-19) 08/13/22 15:12 BUN 10 mg/dL (8-23) 08/13/22 15:12 Creatinine 1.2 mg/dL (0.7-1.2) 08/13/22 15:12 GFR Calculation Not Reportable 08/13/22 15:12 Glucose 98 mg/dL (65-115) 08/13/22 15:12 Calculated Osmolality 285 mOsm/kg (285-295) 08/13/22 15:12 Calcium 9.3 mg/dL (8.5-10.5) 08/13/22 15:12 Total Bilirubin 1.0 mg/dL (0.15-1.2) 08/13/22 15:12 AST 15 U/L (0-40) 08/13/22 15:12 ALT 7 U/L (0-41) 08/13/22 15:12 Alkaline Phosphatase 91 U/L (40-130) 08/13/22 15:12 Troponin T Baseline 9 ng/L (0-15) 08/13/22 15:12 Troponin T 120 Minute 8.81 ng/L (0-15) 08/13/22 17:12 Delta Troponin T -0.19 ABS# (0-10) L 08/13/22 17:12 Total Protein 7.8 g/dL (6.6-8.7) 08/13/22 15:12 Albumin 4.0 g/dL (3.5-5.2) 08/13/22 15:12 Globulin 3.8 g/dL (1.3-4.6) 08/13/22 15:12 Discharge Plan Discharge Patient Disposition: Home Clinical Impression: Pain in right shoulder Qualifiers: Chronicity: acute Qualified Code(s): M25.511 - Pain in right shoulder Condition: Stable Prescriptions: No Action amlodipine 5 mg tablet 5 mg PO DAILY Qty: 90 3RF ezetimibe [Zetia] 10 mg tablet 10 mg PO QAM Qty: 30 0RF Rx Instructions: patient needs follow up for future refills losartan 100 mg tablet 100 mg PO QAM Qty: 30 0RF Rx Instructions: patient needs follow up for future refills vitamin E 100 unit Capsule 100 unit PO DAILY Qty: 0 aspirin 81 mg Tablet,Delayed Release (Dr/Ec) 81 mg PO QAM metoprolol succinate 25 mg capsule,sprinkle,ER 24hr 25 mg PO DAILY Qty: 30 0RF Synthroid 25 mcg tablet 25 mcg PO QAM pantoprazole 40 mg tablet,delayed release (DR/EC) 40 mg PO DAILY PRN (Reason: Heartburn) Ventolin HFA 90 mcg/actuation HFA aerosol inhaler 2 inh inhalation QID PRN (Reason: shortness of breath or wheezing) Qty: 6.7 0RF Discharge Orders: Discharge ED (Routine); Ordered 08/13/22 Ordered By: Dana Singh Referrals: Denis Nowak MD [Primary Care Provider] - Coding Level of Care Code ED Doctor Of Veterinary Medicine for Victor M Hale
[2022-08-13 15:23] LABS: Basophils # 0.1 10^3/uL (0.0-0.1); Basophils % 0.7 %; Eosinophils # 0.1 10^3/uL (0.0-0.8); Hematocrit 44.5 % (42.0-52.0); Hemoglobin 14.8 g/dL (11.7-16.6); Lymphocytes # 1.8 10^3/uL (0.8-4.8); Lymphocytes % 23.6 %; Mean Corpuscular HGB Conc 33.3 g/dL (30.0-36.0); Mean Corpuscular Hemoglobin 32.4 pg (28.0-34.0); Mean Corpuscular Volume 97.4 fl (80-94); Mean Platelet Volume 9.8 fL (7.4-10.4); Monocytes % 13.4 %; Neutrophils # 4.65 10^3/uL (1.8-7.7); Nucleated Red Blood Cells % 0 %; Platelet Count 198 10^3/cmm (130-400); Red Blood Count 4.57 10^6/uL (4.1-5.3); Red Cell Distribution Width 12.9 % (12.1-15.1); White Blood Count 7.6 10^3/uL (4.0-10.0)
--- NOTE | 2022-08-13 15:42 | ECG_ITS ---
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 Measurements Intervals [place] Rate: 91 P: 0 DE: 0 QRS: -23 QRSD: 89 T: 41 QT: 336 QTc: 414 Interpretive Statements SINUS RHYTHM WITH PACs POSSIBLE ANTERIOR MYOCARDIAL INFARCTION , PROBABLY OLD [30 ms Q WAVE IN V3/V4, OR R < 0.2 mV IN V4] Compared to ECG 07/21/2022 05:58:03 Myocardial infarct finding now present ST (T wave) deviation no longer present Electronically Signed On 08-14-2022 2:56:01 CDT by Maximino Berkowitz M.D. [id number]
[2022-08-13 15:45] LABS: Alanine Aminotransferase 7 U/L (0-41); Alkaline Phosphatase 91 U/L (40-130); Anion Gap 16.1 (5-19); Aspartate Amino Transferase 15 U/L (0-40); Blood Urea Nitrogen 10 mg/dL (8-23); Calcium 9.3 mg/dL (8.5-10.5); Carbon Dioxide 23 mmol/L (22-29); Chloride 103 mmol/L (98-107); Globulin 3.8 g/dL (1.3-4.6); Glucose 98 mg/dL (65-115); Osmolality Calculated 285 mOsm/kg (285-295); Potassium 4.1 mmol/L (3.5-5.1); Sodium 138 mmol/L (136-145); Total Protein 7.8 g/dL (6.6-8.7)
[2022-08-13 16:54] LABS: Troponin(5th) Baseline 9 ng/L (0-15)
[2022-08-13 17:00] VITALS: BP 149/64; PULSE 79; RESP 16; O2SAT 95
[2022-08-13 17:47] LABS: Troponin 5 2HR 8.81 ng/L (0-15)
[2022-08-13 18:08] LABS: Troponin 5 2HR Delta -0.19 ABS# (0-10)
== END 2022-08-13 17:37 | disposition home or self-care (01) ==
PROVIDERS: Emergency Provider Physician Assistant; PCP Internal Medicine
DX: M25.511 Pain in right shoulder (principal); I48.91 Unspecified atrial fibrillation
CPT/HCPCS: 36415; 71045; 80053; 84484; 85025; 93005; 99285

== ENCOUNTER 2022-09-10 21:42 | Observation (INO) | payer MEDICARE, MEDICAID, SELFPAY ==
[2022-09-10 21:56] VITALS: BP 155/82; PULSE 115; RESP 20; TEMP 36.9; O2SAT 94; BMI 30.4
--- NOTE | 2022-09-10 22:07 | W.ED.SOB ---
HPI - SOB/Dyspnea General: Chief Complaint: Shortness of Breath/Dyspnea Stated Complaint: Feel Bad\Head Ache Time Seen by Provider: 09/10/22 22:07 History of Present Illness: HPI Narrative: 81-year-old gentleman presenting with shortness of breath started approximately 2 hours prior to arrival at rest. Notes associated generalized aches and pains with it. Denies fevers, no cough, no specific chest pain. Moderate to severe in intensity. No other specific changes in health, exacerbating, or alleviating factors identified. Onset (ago): hour(s) Timing: constant Severity: moderate Review of Systems General: Reports: 10 or more systems reviewed and unremarkable except in HPI and below PFSH ED PFSH: Medical History Atherosclerotic heart disease of [place] coronary artery without angina pectoris Benign essential HTN Calculus of kidney with calculus of ureter Chronic episodic atrial fibrillation Dyslipidemia (high LDL; low HDL) Fibromyalgia GERD (gastroesophageal reflux disease) History of atrial fibrillation History of colon polyps Insomnia Left ureteral calculus Lumbar disc disease Renal mass Surgical History History of cardiac cath History of cholecystectomy History of colonoscopy History of shoulder surgery Family History Brother No problems noted. Father , at age 93 Dementia Parkinsons Mother , at age 75 No problems noted. Denies family history of Diabetes CAD (coronary artery disease) Clotting disorder Chronic kidney disease (CKD) Suicide Anesthesia complication Bleeding disorder Lung disease Cancer Stroke Social History Smoking and tobacco status: never smoked Alcohol intake: current Alcohol intake frequency: holidays/special occasions only Substance/Drug Use: never Housing: House Marital status: / Current occupational status: retired Physical Exam Const: COMMON NORMALS: alert GENERAL APPEARANCE: cooperative, well developed and ill appearing HENMT: COMMON NORMALS: normocephalic and atraumatic HEAD & SCALP: normocephalic and atraumatic Eye: COMMON NORMALS: conjunctivae normal CONJUNCTIVA: Yes conjunctivae normal SCLERA: sclerae normal Neck/C-Spine: COMMON NORMALS: supple GENERAL: Yes trachea midline Resp: COMMON NORMALS: clear to auscultation bilaterally EFFORT & INSPECTION: Yes able to speak in complete sentences AUSCULTATION: clear to auscultation bilaterally Cardio: RATE: tachycardic RHYTHM: abnormal rhythm GI: COMMON NORMALS: Soft to palpation PALPATION: Yes Soft to palpation and No Tenderness to palpation present (GI) Extremity: GENERAL: Yes normal exam except as noted and No edema Neuro: COMMON NORMALS: moves all extremities SENSORIUM/ORIENTATION: Yes alert and No Orientation impaired Psych: COMMON NORMALS: mental status grossly normal and Normal thought process present THOUGHT PROCESS: Normal thought process present Course Vital Signs: Vital signs: Vital Signs Temperature 98.1 F 09/11/22 07:38 Pulse Rate 59 L 09/11/22 14:23 Respiratory Rate 19 H 09/11/22 14:23 Blood Pressure 143/71 09/11/22 14:23 Pulse Oximetry 94 09/11/22 14:23 Oxygen Delivery Me thod Room Air 09/11/22 11:55 MDM - SOB/Dyspnea Medical Decision Making 81-year-old gentleman presenting with generalized illness. Exam as above. Ill however nontoxic. EKG demonstrates atrial fibrillation with rapid ventricular response, no STEMI. Labs with unremarkable hematologic panel. Metabolic panel without significant derangement. Negative range 2-hour delta troponin. Viral panel pending. Chest x-ray with no lobar consolidation or pneumothorax. CTA demonstrates no PE, patient has cardiomegaly with pulmonary vascular congestion. Treated with RT treatment, small fluid bolus, analgesia, metoprolol, Lasix. Most likely has heart failure exacerbation and atrial fibrillation with RVR. The results of ED evaluation were discussed with the patient including plan for admission due to requirement for level of care not available if discharged to prevent significant worsening/deterioration. Patient agreeable with plan. Discussed with hospitalist service who was agreeable to admit patient. Medical Records I reviewed the patient's medical records. Lab Data I reviewed the patient's lab results. 09/10/22 22:30 09/10/22 22:30 Labs/Radiology: Radiology Impressions Chest X-Ray 09/10/22 22:16 IMPRESSION: No acute finding. Chest CTA 09/10/22 23:51 IMPRESSION: 1. No PE. 2. Large heart with mild venous congestion. No focal pneumonia. 3. Multiple chronic/incidental findings above. These are similar to 12/03/2021. Recommend six-month follow-up. Laboratory Results WBC 6.1 10^3/uL (4.0-10.0) 09/10/22: RBC 4.55 10^6/uL (4.1-5.3) 09/10/22: Hgb 14.6 g/dL (11.7-16.6) 09/10/22: Hct 42.8 % (42.0-52.0) 09/10/22: MCV 94.1 fl (80-94) H 09/10/22: MCH 32.1 pg (28.0-34.0) 09/10/22: MCHC 34.1 g/dL (30.0-36.0) 09/10/22: RDW 13.3 % (12.1-15.1) 09/10/22: Plt Count 210 10^3/cmm (130-400) 09/10/22: MPV 9.8 fL (7.4-10.4) 09/10/22: Neut % (Auto) 71.5 % 09/10/22: Lymph % (Auto) 11.1 % 09/10/22: Graves % (Auto) 14.3 % 09/10/22: Eos % (Auto) 2.5 % 09/10/22: Baso % (Auto) 0.3 % 09/10/22: Neut # (Auto) 4.36 10^3/uL (1.8-7.7) 09/10/22: Lymph # (Auto) 0.7 10^3/uL (0.8-4.8) L 09/10/22: Graves # (Auto) 0.9 10^3/uL (0.2-0.9) 09/10/22: Eos # (Auto) 0.2 10^3/uL (0.0-0.8) 09/10/22: Baso # (Auto) 0.0 10^3/uL (0.0-0.1) 09/10/22: Nucleated RBC % (auto) 0 % 09/10/22:30 Nucleated RBCs # 0.0 /100WBC 09/10/22 22:30 D-Dimer 0.96 ug/mIFEU (0-0.59) H 09/10/22 23:20 Sodium 139 mmol/L (136-145) 09/10/22 22:30 Potassium 4.2 mmol/L (3.5-5.1) 09/10/22 22:30 Chloride 102 mmol/L (98-107) 09/10/22 22:30 Carbon Dioxide 23 mmol/L (22-29) 09/10/22 22:30 Anion Gap 18.2 (5-19) 09/10/22 22:30 BUN 10 mg/dL (8-23) 09/10/22 22:30 Creatinine 1.2 mg/dL (0.7-1.2) 09/10/22 22:30 GFR Calculation Not Reportable 09/10/22 22:30 Glucose 123 mg/dL (65-115) H 09/10/22 22:30 Estimat Average Glucose 105 09/10/22 22:30 Hemoglobin A1c 5.3 % (4.0-6.0) 09/10/22 22:30 Calculated Osmolality 288 mOsm/kg (285-295) 09/10/22 22:30 Lactic Acid 1.7 mmol/L (0.5-2.2) 09/10/22 22:45 Calcium 9.0 mg/dL (8.5-10.5) 09/10/22 22:30 Total Bilirubin 0.4 mg/dL (0.15-1.2) 09/10/22 22:30 AST 16 U/L (0-40) 09/10/22 22:30 ALT 7 U/L (0-41) 09/10/22 22:30 Alkaline Phosphatase 88 U/L (40-130) 09/10/22 22:30 Troponin T Baseline 11 ng/L (0-15) 09/10/22 22:30 Troponin T 120 Minute 10.59 ng/L (0-15) 09/11/22 00:10 Delta Troponin T -0.41 ABS# (0-10) L 09/11/22 00:10 NT-Pro-B Natriuret Pep 302 pg/mL (0-450) 09/10/22 22:30 Total Protein 7.3 g/dL (6.6-8.7) 09/10/22 22:30 Albumin 4.2 g/dL (3.5-5.2) 09/10/22 22:30 Globulin 3.1 g/dL (1.3-4.6) 09/10/22 22:30 Procalcitonin 0.07 ng/mL (0-0.5) 09/11/22 00:10 TSH 1.79 uIU/mL (0.27-4.20) 09/11/22 00:10 Nasal Influ A H1 2009 PCR Not detected (NOT DETECT) 09/10/22 23:45 Adenovirus (PCR) Not detected (NOT DETECT) 09/10/22 23:45 C. pneumoniae DNA (PCR) Not detected (NOT DETECT) 09/10/22 23:45 Coronavirus 229E (PCR) Not detected (NOT DETECT) 09/10/22 23:45 Human Metapneumovir PCR Not detected (NOT DETECT) 09/10/22 23:45 Influenza A (H1) PCR Not detected (NOT DETECT) 09/10/22 23:45 Influenza A (H3) PCR Not detected (NOT DETECT) 09/10/22 23:45 Influenza Type A (PCR) Not detected (NOT DETECT) 09/10/22 23:45 Influenza Type B (PCR) Not detected (NOT DETECT) 09/10/22 23:45 M. pneumoniae (PCR) Not detected (NOT DETECT) 09/10/22 23:45 Parainfluenza 1 (PCR) Not detected (NOT DETECT) 09/10/22 23:45 Parainfluenza 2 (PCR) Not detected (NOT DETECT) 09/10/22 23:45 Parainfluenza 3 (PCR) Not detected (NOT DETECT) 09/10/22 23:45 Parainfluenza 4 (PCR) Not detected (NOT DETECT) 09/10/22 23:45 RSV Type A (PCR) Not detected (NOT DETECT) 09/10/22 23:45 RSV Type B (PCR) Not detected (NOT DETECT) 09/10/22 23:45 Entero/Rhino (PCR) Not detected (NOT DETECT) 09/10/22 23:45 SARS-CoV-2 (PCR) Detected (NOT DETECT) A 09/10/22 23:45 Critical Care Time Critical Care Time: Critical Care Time: Yes Total Critical Care Time: 35 Attestation: Due to a high probability of clinically significant, possibly life threatening deterioration, the patient required my highest level of attention and preparedness to intervene emergently and I personally spent this critical care time directly and personally managing the patient. This critical care time included obtaining a history; examining the patient; pulse oximetry; ordering and review of laboratory and imaging studies; arranging urgent treatment with development of a management plan; evaluation of patient's response to treatment; frequent reassessment; and, discussions with other providers as applicable. It was exclusive of separately billable procedures. Primary system involved is cardiac Discharge Plan Discharge Patient Disposition: Placed in Observation Admit Provider: Tasha Meadows Clinical Impression: Acute exacerbation of CHF (congestive heart failure), Atrial fibrillation with RVR Discharge Diet: Cardiac Coding Level of Care Code ED [employer] Operator for Victor M Hale
[2022-09-10 22:16] VITALS: PULSE 88
--- NOTE | 2022-09-10 22:16 | XRR_ITS ---
PROCEDURE INFORMATION: Exam: XR Chest Exam date and time: 09/10/2022 10:42 PM Age: 81 years old Clinical indication: Shortness of breath; Additional info: SOB TECHNIQUE: Imaging protocol: Radiologic exam of the chest. Views: 1 view. COMPARISON: CR XR chest 1V portable [id number] 08/13/2022 3:07 PM FINDINGS: Lungs: Mild COPD. Lung base atelectasis or scarring. No consolidation. Pleural spaces: Unremarkable. No pleural effusion. No pneumothorax. Heart/Mediastinum: Heart is mildly enlarged. Bones/joints: Right humeral head screw. XR/XR chest 1V portable [id number] IMPRESSION: No acute finding.
[2022-09-10 22:37] LABS: Basophils % 0.3 %; Eosinophils # 0.2 10^3/uL (0.0-0.8); Eosinophils % 2.5 %; Hematocrit 42.8 % (42.0-52.0); Hemoglobin 14.6 g/dL (11.7-16.6); Lymphocytes # 0.7 10^3/uL (0.8-4.8); Lymphocytes % 11.1 %; Mean Corpuscular HGB Conc 34.1 g/dL (30.0-36.0); Mean Corpuscular Hemoglobin 32.1 pg (28.0-34.0); Mean Corpuscular Volume 94.1 fl (80-94); Mean Platelet Volume 9.8 fL (7.4-10.4); Monocytes # 0.9 10^3/uL (0.2-0.9); Monocytes % 14.3 %; Neutrophils # 4.36 10^3/uL (1.8-7.7); Neutrophils % 71.5 %; Nucleated Red Blood Cells % 0 %; Platelet Count 210 10^3/cmm (130-400); Red Blood Count 4.55 10^6/uL (4.1-5.3); Red Cell Distribution Width 13.3 % (12.1-15.1); White Blood Count 6.1 10^3/uL (4.0-10.0)
--- NOTE | 2022-09-10 22:39 | ECG_ITS ---
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 Measurements Intervals [place] Rate: 108 P: 0 NV: 0 QRS: -3 QRSD: 89 T: 55 QT: 293 QTc: 394 Interpretive Statements ATRIAL FIBRILLATION WITH RAPID VENTRICULAR RESPONSE ABNORMAL RHYTHM ECG Compared to ECG 08/13/2022 15:42:30 Sinus rhythm no longer present Myocardial infarct finding no longer present Electronically Signed On 09-11-2022 4:15:37 CDT by Anna Soto M.D. [id number]
[2022-09-10 23:02] LABS: Troponin(5th) Baseline 11 ng/L (0-15)
[2022-09-10] MEDS: morphine 4 mg/mL SDV 1 mL IVP (23:08)
[2022-09-10] MEDS: sodium chloride 0.9% 500 ML 999 ML IV (23:08)
[2022-09-10 23:11] LABS: Alanine Aminotransferase 7 U/L (0-41); Albumin Level 4.2 g/dL (3.5-5.2); Alkaline Phosphatase 88 U/L (40-130); Blood Urea Nitrogen 10 mg/dL (8-23); Carbon Dioxide 23 mmol/L (22-29); Chloride 102 mmol/L (98-107); Globulin 3.1 g/dL (1.3-4.6); Glucose 123 mg/dL (65-115); NT Pro B Type Natriuretic Pept 302 pg/mL (0-450); Osmolality Calculated 288 mOsm/kg (285-295); Sodium 139 mmol/L (136-145); Total Bilirubin 0.4 mg/dL (0.15-1.2); Total Protein 7.3 g/dL (6.6-8.7)
[2022-09-10 23:13] LABS: Anion Gap 18.2 (5-19); Aspartate Amino Transferase 16 U/L (0-40); Potassium 4.2 mmol/L (3.5-5.1)
[2022-09-10] MEDS: metoprolol tartrate 1 mg/1 mL SDV 5 mL 5 MG IVP (23:29)
[2022-09-10] MEDS: ipratropium-albuterol 3 mL Neb INHALATION (23:33)
[2022-09-10 23:35] VITALS: PULSE 99; RESP 18; O2SAT 96
[2022-09-10 23:41] VITALS: PULSE 91; RESP 16; O2SAT 97
[2022-09-10 23:42] LABS: Lactic Sepsis W/Reflex 1.7 mmol/L (0.5-2.2)
[2022-09-10 23:47] LABS: D Dimer 0.96 ug/mIFEU (0-0.59)
--- NOTE | 2022-09-10 23:51 | CTR_ITS ---
PROCEDURE INFORMATION: Exam: CTA Chest With Contrast Exam date and time: 09/11/2022 12:21 AM Age: 81 years old Clinical indication: Shortness of breath; Additional info: SOB, elevated ddimer TECHNIQUE: Imaging protocol: Computed tomographic angiography of the chest with contrast. Exam focused on the arteries. 3D rendering (Not supervised by radiologist): MIP and/or 3D reconstructed images were created by the technologist. Radiation optimization: All CT scans at this facility use at least one of these dose optimization techniques: automated exposure control; mA and/or kV adjustment per patient size (includes targeted exams where dose is matched to clinical indication); or iterative reconstruction. Contrast material: OMNI 350; Contrast volume: 85 ml; Contrast route: INTRAVENOUS (IV); REPORTING DATA: Count of CT and Cardiac NM exams in prior 12 months: This patient has received 2 known CTs and 0 known cardiac nuclear medicine studies in the 12 months prior to the current study. COMPARISON: CT angio chest w abd pel w con 12/03/2021 1:21 AM RADIATION DOSE METRICS: Total DLP (mGy-cm): 395.87 FINDINGS: Pulmonary arteries: No evidence of PE. Aorta: Unremarkable. No aortic aneurysm. No aortic dissection. Veins: Mild venous congestion. Lungs: Mild areas of lung base atelectasis or scarring. RUL noncalcified 9 mm nodule. This has not grown from 12/03/2021. No new mass or spiculated nodule. A few minute calcified lung nodules are seen incidentally. No new consolidation. Pleural spaces: No pneumothorax. No pleural effusion noted. Heart: The heart is large. No pericardial effusion. No evidence of main, lobar, or segmental occlusive PE. Lymph nodes: There is mild mediastinal lymphadenopathy with nodes measuring up to about 2.1 cm. Liver: A few minute hepatic cystic foci are too small to characterize. Bones/joints: Cenl-hj-zvelkwah spine DJD. Soft tissues: Unremarkable. Other findings: Advanced diffuse vascular calcification noted. CT/CT angio chest PE protcl [id number] IMPRESSION: 1. No PE. 2. Large heart with mild venous congestion. No focal pneumonia. 3. Multiple chronic/incidental findings above. These are similar to 12/03/2021. Recommend six-month follow-up.
[2022-09-10 23:56] VITALS: BP 136/93; PULSE 99; RESP 16; O2SAT 96
[2022-09-11] VITALS (37 sets, daily range): BP systolic 136–157; BP diastolic 71–97; PULSE 59–98; RESP 13–26; TEMP 36.7–36.9; O2SAT 91–98
[2022-09-11] MEDS: iohexol 350 mg/mL 500 mL Btl (per mL) IV (00:26)
--- NOTE | 2022-09-11 00:34 | ECG_ITS ---
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 Measurements Intervals [place] Rate: 98 P: 0 GA: 0 QRS: -18 QRSD: 91 T: 45 QT: 330 QTc: 421 Interpretive Statements ATRIAL FIBRILLATION ABNORMAL RHYTHM ECG Compared to ECG 09/10/2022 22:39:42 No significant changes Electronically Signed On 09-11-2022 4:17:26 CDT by Anna Soto M.D. [id number]
[2022-09-11 00:41] LABS: Troponin 5 2HR 10.59 ng/L (0-15)
[2022-09-11 01:06] LABS: Troponin 5 2HR Delta -0.41 ABS# (0-10)
[2022-09-11] MEDS: FUROsemide 10 mg/mL SDV 4mL 40 MG IVP (01:11)
--- NOTE | 2022-09-11 01:11 | PM.HP ---
Providers/Chief Complaint Primary Care Provider: Denis Nowak MD Chief Complaint: Feel Bad\Head Ache\SOB History of Present Illness David Orozco is a 81 year old male With history of chronic episodic atrial fibrillation, colonic polyps, hypertension, renal mass, atherosclerotic heart disease, dyslipidemia, GERD, fibromyalgia, kidney stone presented to the hospital today for complaint of shortness of breath that started pretty much suddenly about 2 hours prior to arrival to ER. He was sitting down when the shortness of breath started. He also states that he has been having generalized aches and pains lately. Nothing made the shortness of breath better or worse. Denies cough chest pain, fever, nausea, vomiting, diarrhea, abdominal pain. Does not have a formal diagnosis of heart failure from before. Denies recent illness or sick contacts. ED course: 155/82, 20, 115, 98.4, saturating 94% on room air. EKG showed A-fib with RVR with rate of 108. Patient was given 5 mg metoprolol tartrate x1, DuoNeb x1, 1 L normal saline bolus. D-dimer was checked which was elevated slightly. CTA chest was pursued which ruled out a PE but showed enlarged heart with mild venous congestion no focal pneumonia. BNP 300. WBC 6.1, platelets 210, creatinine 1.2, sodium 139, potassium four-point, lactic acid 1.7. 2-hour delta troponin -0.41. Respiratory viral panel is ordered however pending at this time. Medications/Allergies Home Medications Medication Instructions Recorded Confirmed Last Taken Type aspirin 81 mg tablet,delayed 81 mg PO QAM 05/26/20 05/07/22 05/06/22 History release vitamin E 100 unit capsule 100 unit PO DAILY ##0 05/26/20 05/07/22 06/19/21 History amlodipine 5 mg tablet 5 mg PO DAILY #90 tabs 06/27/21 05/07/22 05/06/22 Rx albuterol sulfate 90 mcg/actuation 2 inh inhalation QID PRN shortness 05/07/22 Unknown Rx aerosol inhaler (Ventolin HFA) of breath or wheezing #6.7 grams levothyroxine 25 mcg tablet 25 mcg PO QAM 05/07/22 05/07/22 05/06/22 History (Synthroid) pantoprazole 40 mg tablet,delayed 40 mg PO DAILY PRN Heartburn 05/07/22 05/07/22 Unknown History release ezetimibe 10 mg tablet (Zetia) 10 mg PO QAM #30 tabs 05/13/22 Unknown Rx losartan 100 mg tablet 100 mg PO QAM #30 tabs 07/05/22 Unknown Rx metoprolol succinate 25 mg capsule 25 mg PO DAILY #30 ea 07/21/22 Unknown Rx sprinkle, ext. release 24 hr Allergies Allergy/AdvReac Type Severity Reaction Status Date / Time No Known Allergies Allergy Verified 09/10/22 21:56 PFSH Acute PFSH: Medical History Atherosclerotic heart disease of [place] coronary artery without angina pectoris Benign essential HTN Calculus of kidney with calculus of ureter Chronic episodic atrial fibrillation Dyslipidemia (high LDL; low HDL) Fibromyalgia GERD (gastroesophageal reflux disease) History of atrial fibrillation History of colon polyps Insomnia Left ureteral calculus Lumbar disc disease Renal mass Surgical History History of cardiac cath History of cholecystectomy History of colonoscopy History of shoulder surgery Family History Brother No problems noted. Father , at age 93 Dementia Parkinsons Mother , at age 75 No problems noted. Denies family history of Diabetes CAD (coronary artery disease) Clotting disorder Chronic kidney disease (CKD) Suicide Anesthesia complication Bleeding disorder Lung disease Cancer Stroke Social History Smoking and tobacco status: never smoked Alcohol intake: current Alcohol intake frequency: holidays/special occasions only Substance/Drug Use: never Housing: House Marital status: / Current occupational status: retired Vitals/I&O/Wt Last Vital Signs Temp 98.4 F 09/10/22 21:56 Pulse 98 09/11/22 01:08 Resp 16 09/11/22 01:08 BP 136/93 09/10/22 23:56 Pulse Ox 96 09/11/22 01:08 O2 Del Method Room Air 09/10/22 23:41 Weight last 48 hrs Weight 90.718 kg Physical Exam Narrative: General: Alert oriented x3, patient seen in bed, no acute distress. HEENT: Normocephalic, atraumatic, EOMI, breathing room air saturating 96% Cardio: RRR normal S1-S2, Respiratory: Clear to auscultation bilaterally no wheezes or rhonchi. GI: Abdomen soft, nontender, nondistended, bowel sounds + Behavior: Appropriate and cooperative Extremities: No lower extremity edema present. Data 09/10/22 22:30 09/10/22 22:30 A&P Assessment and plan (1) Acute exacerbation of CHF (congestive heart failure): (2) Atrial fibrillation with RVR: (3) Hypothyroidism: (4) B12 deficiency: (5) A-fib: (6) Dyslipidemia (high LDL; low HDL): (7) Benign essential HTN: (8) GERD (gastroesophageal reflux disease): (9) Atherosclerotic heart disease of [place] coronary artery without angina pectoris: Qualifiers: [place] vs. transplanted heart: [place] heart Qualified Code(s): I25.10 - Atherosclerotic heart disease of [place] coronary artery without angina pectoris (10) Chronic episodic atrial fibrillation: Plan #Shortness of breath, sudden onset, PE ruled out #Hx of bradycardia #Atrial fibrillation with RVR, carries a history of paroxysmal atrial fibrillation #COVID positive #Hypertension #Atherosclerotic heart disease #Dyslipidemia #GERD #Fibromyalgia ? Patient is on metoprolol succinate 25 daily at home. I will switch to metoprolol titrate 25 twice daily at this time and continue to monitor on telemetry. Patient does have a history of bradycardia with first-degree AV block. He wore a Holter monitor in 2020 which showed frequent PACs associated bradycardia and lowest heart rate being 34. Patient may not be able to tolerate higher dose of metoprolol. We will have to monitor on telemetry at this time. ? PE has been ruled out. ? Check echocardiogram ? BNP 300. Venous congestion and cardiomegaly noted on CT scan. Patient given Lasix 40 IV x1 in ER. He appears euvolemic to me. I would hold off on giving further doses of lasix at this time. ? Check TSH, magnesium, potassium. Keep potassium above 4, magnesium above 2 ? Continue on Synthroid 25 daily till TSH returns and may need dose adjustment. ? Patient did get 1 L of normal saline bolus in ER as well. ? Continue amlodipine.. ? Observation admission to cardiac stepdown unit at this time. ? Continue aspirin, ? DuoNeb every 6 hours as needed ? Respiratory viral panel pending at this time ? 6-hour troponin pending at this time. 2-hour troponin has negative delta. -Patient to follow-up with cardiology at discharge -Consider placing on Eliquis at discharge for atrial fibrillation. [id number] score: 3 - He has been found to be covid positive, not requiring any supplemental oxygen. Will start dexamethasone 6 mg IV daily. Hold of on remdesivir. - Continue vitamin C, vitamin D Full code SCDs, heparin SQ twice daily Attestations Medical Necessity Statement*: Observation admission for atrial fibrillation, shortness of breath. Coding Level of Care Code G0425 (30 min) TH Encounter Time (min): 45 Patient seen via Telehealth in the acute care setting (hospital or ED location) by agreement and consent of patient or patient claims representative. Telehealth technology used during the visit includes video and audio. This patient encounter is appropriate and reasonable under the circumstances given the patient?s particular presentation at this time. The patient has been advised of the potential risks and limitations of this mode of treatment (including but not limited to the absence of in-person examination at this time) and has agreed to be treated by an off-site physician for this visit. If deemed clinically necessary from this telehealth visit, or if condition or consent for telehealth visit changes, an in-person visit will be arranged. For this encounter, total time for the origination of telehealth care on this date is as shown. Diagnoses Acute exacerbation of CHF (congestive heart failure) I50.9 Atrial fibrillation with RVR I48.91 Hypothyroidism E03.9 B12 deficiency E53.8 A-fib I48.91 Dyslipidemia (high LDL; low HDL) E78.5 Benign essential HTN I10 GERD (gastroesophageal reflux disease) K21.9 Atherosclerotic heart disease of [place] coronary artery without angina pectoris I25.10 [place] vs. transplanted heart: [place] heart Chronic episodic atrial fibrillation I48.20
--- NOTE | 2022-09-11 01:14 | USCV_ITS ---
David Orozco Age: 81 Gender: M : 1940 Exam Date: 09/11/2022 04:31 Ordering Phys: Tasha Meadows MD Technologist: DAVID [place] [facility] [place]: SOB, hf. No history of cardiac intervention per patient. BP: 157 / 97 HR: 75 Rhythm: Sinus Technical Quality: Adequate MEASUREMENTS (Male / Female) Normal Values 2D ECHO LV Diastolic Diameter PLAX 4.6 cm 4.2 - 5.9 / 3.9 - 5.3 cm LV Systolic Diameter PLAX 2.7 cm IVS Diastolic Thickness 1.6 cm 0.6 - 1.0 / 0.6 - 0.9 cm IVS Systolic Thickness 1.9 cm LVPW Diastolic Thickness 0.9 cm 0.6 - 1.0 / 0.6 - 0.9 cm LVPW Systolic Thickness 1.6 cm LVOT Diameter 2.0 cm LV Ejection Fraction 2D Teich 72.7 % LV Ejection Fraction MOD 2C 71.0 % LV Ejection Fraction 2C AL 70.0 % LA Diameter 3.5 cm LA Width 4.4 cm LA Height 5.9 cm RA Width 2.2 cm RA Height 4.2 cm Aorta at Sinotubular Diameter 2.9 cm IVC Diameter 1.6 cm M-MODE Aortic Annulus Diameter 3.0 cm LA Ao Ratio MM 1.2 MV E Point Septal Separation 0.4 cm DOPPLER AV Peak Velocity 100.0 cm/s LVOT Peak Velocity 62.0 cm/s AV Area Cont Eq vti 2.0 cm squared AV Area Cont Eq pk 1.9 cm squared MV Area PHT 4.2 cm squared Mitral E to A Ratio 1.6 MV E' Velocity 50.5 cm/s Mitral E to MV E' Ratio 13.4 Mitral E to LV E' Lateral Ratio 11.9 Mitral E to LV E' Septal Ratio 15.5 TV Peak E Velocity 38.0 cm/s PV Peak Velocity 113.0 cm/s RV Acceleration Time 0.1 s RV Ejection Time 0.3 s RV AcT/ET 0.2 FINDINGS Left Ventricle Normal left ventricular size, systolic function and wall thickness, with no regional wall motion abnormalities. Left ventricular ejection fraction is estimated at 65-70 %. Grade II diastolic dysfunction, moderately elevated filling pressures. Right Ventricle Normal right ventricular size and systolic function. RVSP could not be calculated due to incomplete tricuspid regurgitation velocity profile. Right Atrium Normal right atrial size. Left Atrium Mildly increased left atrial size. Mitral Valve Structurally normal mitral valve. No mitral valve stenosis. Mild-moderate eccentric mitral valve regurgitation. Aortic Valve Mildly thickened trileaflet aortic valve. No aortic valve stenosis. Trace aortic valve regurgitation. Tricuspid Valve Structurally normal tricuspid valve. No tricuspid valve stenosis. Trace tricuspid valve regurgitation. Pulmonic Valve Structurally normal pulmonic valve. No pulmonary valve stenosis. Trace pulmonary valve regurgitation. Pericardium No pericardial effusion. Aorta Normal size aortic root and proximal ascending aorta. IVC Normal IVC dimension with >50% respiratory change of the inferior vena cava. CONCLUSIONS 1. Normal left ventricular size, systolic function and wall thickness, with no regional wall motion abnormalities. Left ventricular ejection fraction is estimated at 65-70 %. Grade II diastolic dysfunction, moderately elevated filling pressures. 2. Mild-moderate eccentric mitral valve regurgitation. 3. When compared to study dated 07/21/2020, mitral regurgitation may be somewhat worse. Anna Soto MD (Electronically Signed) Final Date: 11 September 2022 12:07 S
[2022-09-11] MEDS: heparin 5,000 unit/mL INJ 1 mL 5000 UNIT SUBCUT (01:28)
[2022-09-11 01:30] LABS: Adenovirus Not Detected (NOT DETECT); Chlamydia Pneumoniae Not Detected (NOT DETECT); Coronavirus 229E,HKU1,NL63,OC4 Not Detected (NOT DETECT); Human Metapneumovirus Not Detected (NOT DETECT); Human Rhinovirus/Enterovirus Not Detected (NOT DETECT); Influenza A Not Detected (NOT DETECT); Influenza A H1 Not Detected (NOT DETECT); Influenza A H1-2009 Not Detected (NOT DETECT); Influenza A H3 Not Detected (NOT DETECT); Influenza B Not Detected (NOT DETECT); Mycoplasma Pneumoniae Not Detected (NOT DETECT); Parainfluenza Virus Type 1 Not Detected (NOT DETECT); Parainfluenza Virus Type 2 Not Detected (NOT DETECT); Parainfluenza Virus Type 3 Not Detected (NOT DETECT); Parainfluenza Virus Type 4 Not Detected (NOT DETECT); Respiratory Syncytial Virus A Not Detected (NOT DETECT); Respiratory Syncytial Virus B Not Detected (NOT DETECT)
[2022-09-11 02:01] LABS: Procalcitonin 0.07 ng/mL (0-0.5); Thyroid Stimulating Hormone 1.79 uIU/mL (0.27-4.20)
[2022-09-11 02:03] LABS: SARS-COV-2 Detected (NOT DETECT)
[2022-09-11 02:32] LABS: Estmated Average Glucose 105; Hemoglobin A1C 5.3 % (4.0-6.0)
[2022-09-11] MEDS: dexamethasone 10 mg/mL INJ 6 MG IVP (03:46)
--- NOTE | 2022-09-11 04:16 | ECG_ITS ---
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 Measurements Intervals [place] Rate: 68 P: -63 [place]: 178 QRS: 7 QRSD: 88 T: 3 QT: 388 QTc: 415 Interpretive Statements SINUS RHYTHM POSSIBLE ANTERIOR MYOCARDIAL INFARCTION , OF INDETERMINATE AGE [30 ms Q WAVE IN V3/V4, OR R < 0.2 mV IN V4] Compared to ECG 09/11/2022 00:34:19 Myocardial infarct finding now present Atrial fibrillation no longer present Electronically Signed On 09-11-2022 9:52:23 CDT by Anna Soto M.D. [id number]
[2022-09-11] MEDS: aspirin 81 mg EC Tablet PO (06:09)
[2022-09-11] MEDS: levothyroxine 25 mcg Tablet PO (06:09)
[2022-09-11] MEDS: metoprolol tartrate 25 mg Tablet PO (09:17)
[2022-09-11] MEDS: cholecalciferol (vitamin D3) 1,000 unit Tablet 2000 UNIT PO (09:17)
[2022-09-11] MEDS: amlodipine 5 mg Tablet PO (09:17)
[2022-09-11] MEDS: ascorbic acid 500 mg Tablet 1000 MG PO (09:17)
[2022-09-11] MEDS: zinc gluconate 50 mg Tablet PO (09:18)
--- NOTE | 2022-09-11 12:57 | PM.DCS ---
Discharge Providers Date of Admission: 09/11/22 01:03 Date of Discharge: September 11, 2022 Attending Provider at Admission: Tasha Meadows MD Attending Provider at Discharge: Lex Dill Primary Care Provider: Denis Nowak MD Diagnoses at Discharge Discharge Diagnosis (1) Acute exacerbation of CHF (congestive heart failure): Status: Acute (2) Atrial fibrillation with RVR: Status: Acute (3) Hypothyroidism: Status: Acute (4) B12 deficiency: Status: Acute (5) A-fib: Status: Acute (6) Dyslipidemia (high LDL; low HDL): Status: Acute (7) Benign essential HTN: Status: Acute (8) GERD (gastroesophageal reflux disease): Status: Acute (9) Atherosclerotic heart disease of [place] coronary artery without angina pectoris: Status: Acute Qualifiers: [place] vs. transplanted heart: [place] heart Qualified Code(s): I25.10 - Atherosclerotic heart disease of [place] coronary artery without angina pectoris (10) Chronic episodic atrial fibrillation: Status: Acute Reason for Visit Reason for Visit: Feel Bad\Head Ache\SOB Hospital Course Hospital Course Pleasant 80-year-old gentleman with history of HTN, paroxysmal A-fib, additional comorbidities including CAD was placed in observation presenting with shortness of breath, malaise, headache, on presentation found to be in atrial fibrillation with RVR, for which his metoprolol dose was adjusted with metoprolol changed from succinate to tartrate with dose of 25 mg twice daily. His heart rate has improved. He was also found to be positive for COVID-19. He has not required any oxygen supplementation and is found to have mild to moderate COVID. As such options were discussed with him for consideration of additional treatment with either remdesivir in the hospital or with Paxlovid at discharge due to some risk factors of severe COVID-19. Alternatively he prefers, as he otherwise is doing better, to continue with expectant management, but knows to seek medical attention in case of any worsening. He denies having any cough, has not had any chest pain or pressure. Shortness of breath has improved. Denies any headache, no nausea vomiting or diarrhea. He is saturating mid 90s on room air, home oxygen evaluation is being obtained at discharge. Additionally on chest imaging on presentation, CTA was negative for PE, however, is noted to have venous congestion changes with concern for decompensated diastolic CHF. Echocardiogram was obtained. Troponin series not suggestive of acute CO, although with mild increase at 6 hours although he has remained chest pain-free and overall feeling much better. He did receive a dose of Lasix last night. Echocardiogram is coming back with grade 2 diastolic dysfunction, mild to moderate mitral regurgitation. Findings discussed with him. Discussed with him exacerbation of diastolic heart failure. Discussed follow-up with cardiology. Discussed additionally need for continued optimization of risk factors of CAD, especially hypertension as it may lead to further progression of diastolic function and heart failure. To aid in blood pressure control he is additionally started on 5 mg daily amlodipine. Additionally with risk factors of CVA with [id number] score of 4 discussed with him consideration of anticoagulation for stroke risk reduction, discussed risks, he is agreeable to start with Eliquis. He states he will follow-up with cardiology in office. Physical Exam Const: COMMON NORMALS: patient oriented x3 and alert GENERAL APPEARANCE: cooperative ORIENTATION/CONSCIOUSNESS: Yes awake HENMT: COMMON NORMALS: oropharynx normal Neck/C-Spine: COMMON NORMALS: no JVD Resp: COMMON NORMALS: normal respiratory effort and clear to auscultation bilaterally AUSCULTATION: clear to auscultation bilaterally Cardio: COMMON NORMALS: no JVD, regular rhythm, S1 normal heart sound present, S2 normal heart sound present and No murmurs present (Cardio) RHYTHM: regular rhythm HEART SOUNDS: S1 normal heart sound present and S2 normal heart sound present GI: COMMON NORMALS: Normal to inspection, nondistended, normoactive bowel sounds present, Soft to palpation and non-tender PALPATION: Yes Soft to palpation Extremity: COMMON NORMALS: no joint enlargement and no pedal edema Neuro: COMMON NORMALS: patient oriented x3 and moves all extremities SENSORIUM/ORIENTATION: Yes alert Skin: COMMON NORMALS: no rashes or lesions noted GENERAL SKIN EXAM: no rashes or lesions noted Discharge Data Studies Completed and Pending Completed Studies During Hospitalization Category Date Time Status CTA chest [CT angio chest PE protcl [id number]] Stat Cat Scan 09/10/22 23:51 Completed XR chest 1V portable [id number] Stat Exams 09/10/22 22:16 Completed US echo complete [CV. echo complete* [id number]] Routine Ultrasound 09/11/22 01:14 Completed Pending at discharge Category Date Time Status Basic Metabolic Panel AM LABS Lab 09/12/22 04:00 Ordered Complete Blood Count w/Auto AM LABS Lab 09/12/22 04:00 Ordered Magnesium AM LABS Lab 09/12/22 04:00 Ordered Sputum Culture and Gram Stain Stat Lab 09/11/22 02:13 Uncollected Radiology Impressions Chest X-Ray 09/10/22 22:16 IMPRESSION: No acute finding. Chest CTA 09/10/22 23:51 IMPRESSION: 1. No PE. 2. Large heart with mild venous congestion. No focal pneumonia. 3. Multiple chronic/incidental findings above. These are similar to 12/03/2021. Recommend six-month follow-up. Laboratory Results WBC 6.1 10^3/uL (4.0-10.0) 09/10/22 22:30 RBC 4.55 10^6/uL (4.1-5.3) 09/10/22 22:30 Hgb 14.6 g/dL (11.7-16.6) 09/10/22 22:30 Hct 42.8 % (42.0-52.0) 09/10/22 22:30 MCV 94.1 fl (80-94) H 09/10/22 22:30 MCH 32.1 pg (28.0-34.0) 09/10/22 22:30 MCHC 34.1 g/dL (30.0-36.0) 09/10/22 22:30 RDW 13.3 % (12.1-15.1) 09/10/22 22:30 Plt Count 210 10^3/cmm (130-400) 09/10/22 22:30 MPV 9.8 fL (7.4-10.4) 09/10/22 22:30 Neut % (Auto) 71.5 % 09/10/22 22:30 Lymph % (Auto) 11.1 % 09/10/22 22:30 [place] % (Auto) 14.3 % 09/10/22 22:30 Eos % (Auto) 2.5 % 09/10/22 22:30 Baso % (Auto) 0.3 % 09/10/22 22:30 Neut # (Auto) 4.36 10^3/uL (1.8-7.7) 09/10/22 22:30 Lymph # (Auto) 0.7 10^3/uL (0.8-4.8) L 09/10/22 22:30 [place] # (Auto) 0.9 10^3/uL (0.2-0.9) 09/10/22 22:30 Eos # (Auto) 0.2 10^3/uL (0.0-0.8) 09/10/22 22:30 Baso # (Auto) 0.0 10^3/uL (0.0-0.1) 09/10/22 22:30 Nucleated RBC % (auto) 0 % 09/10/22 22:30 Nucleated RBCs # 0.0 /100WBC 09/10/22 22:30 D-Dimer 0.96 ug/mIFEU (0-0.59) H 09/10/22 23:20 Sodium 139 mmol/L (136-145) 09/10/22 22:30 Potassium 4.2 mmol/L (3.5-5.1) 09/10/22 22:30 Chloride 102 mmol/L (98-107) 09/10/22 22:30 Carbon Dioxide 23 mmol/L (22-29) 09/10/22 22:30 Anion Gap 18.2 (5-19) 09/10/22 22:30 BUN 10 mg/dL (8-23) 09/10/22 22:30 Creatinine 1.2 mg/dL (0.7-1.2) 09/10/22 22:30 GFR Calculation Not Reportable 09/10/22 22:30 Glucose 123 mg/dL (65-115) H 09/10/22 22:30 Estimat Average Glucose 105 09/10/22 22:30 Hemoglobin A1c 5.3 % (4.0-6.0) 09/10/22 22:30 Calculated Osmolality 288 mOsm/kg (285-295) 09/10/22 22:30 Lactic Acid 1.7 mmol/L (0.5-2.2) 09/10/22 22:45 Calcium 9.0 mg/dL (8.5-10.5) 09/10/22 22:30 Total Bilirubin 0.4 mg/dL (0.15-1.2) 09/10/22 22:30 AST 16 U/L (0-40) 09/10/22 22:30 ALT 7 U/L (0-41) 09/10/22 22:30 Alkaline Phosphatase 88 U/L (40-130) 09/10/22 22:30 Troponin T Baseline 11 ng/L (0-15) 09/10/22 22:30 Troponin T 120 Minute 10.59 ng/L (0-15) 09/11/22 00:10 Delta Troponin T -0.41 ABS# (0-10) L 09/11/22 00:10 Troponin T Hi Sens 6Hr 20.90 ng/L (0-15) H 09/11/22 04:20 Troponin T Hi Sens 6Hr Delta 9.90 ng/L (0-12) 09/11/22 04:20 NT-Pro-B Natriuret Pep 302 pg/mL (0-450) 09/10/22 22:30 Total Protein 7.3 g/dL (6.6-8.7) 09/10/22 22:30 Albumin 4.2 g/dL (3.5-5.2) 09/10/22 22:30 Globulin 3.1 g/dL (1.3-4.6) 09/10/22 22:30 Procalcitonin 0.07 ng/mL (0-0.5) 09/11/22 00:10 TSH 1.79 uIU/mL (0.27-4.20) 09/11/22 00:10 Nasal Influ A H1 2008 PCR Not detected (NOT DETECT) 09/10/22 23:45 Adenovirus (PCR) Not detected (NOT DETECT) 09/10/22 23:45 C. pneumoniae DNA (PCR) Not detected (NOT DETECT) 09/10/22 23:45 Coronavirus 229E (PCR) Not detected (NOT DETECT) 09/10/22 23:45 Human Metapneumovir PCR Not detected (NOT DETECT) 09/10/22 23:45 Influenza A (H1) PCR Not detected (NOT DETECT) 09/10/22 23:45 Influenza A (H3) PCR Not detected (NOT DETECT) 09/10/22 23:45 Influenza Type A (PCR) Not detected (NOT DETECT) 09/10/22 23:45 Influenza Type B (PCR) Not detected (NOT DETECT) 09/10/22 23:45 M. pneumoniae (PCR) Not detected (NOT DETECT) 09/10/22 23:45 Parainfluenza 1 (PCR) Not detected (NOT DETECT) 09/10/22 23:45 Parainfluenza 2 (PCR) Not detected (NOT DETECT) 09/10/22 23:45 Parainfluenza 3 (PCR) Not detected (NOT DETECT) 09/10/22 23:45 Parainfluenza 4 (PCR) Not detected (NOT DETECT) 09/10/22 23:45 RSV Type A (PCR) Not detected (NOT DETECT) 09/10/22 23:45 RSV Type B (PCR) Not detected (NOT DETECT) 09/10/22 23:45 Entero/Rhino (PCR) Not detected (NOT DETECT) 09/10/22 23:45 SARS-CoV-2 (PCR) Detected (NOT DETECT) A 09/10/22 23:45 Vitals Last Vital Signs Temp 98.1 F 09/11/22 07:38 Pulse 59 L 09/11/22 11:55 Resp 19 H 09/11/22 11:55 BP 143/71 09/11/22 11:55 Pulse Ox 94 09/11/22 11:55 O2 Del Method Room Air 09/11/22 11:55 Discharge Plan Discharge Patient Disposition: Home Condition: Stable Prescriptions: New amlodipine 5 mg Tablet 5 mg PO DAILY Qty: 90 0RF apixaban 5 mg tablet 5 mg PO BID Qty: 180 0RF benzonatate 100 mg Capsule 100 mg PO TID PRN (Reason: Cough) Qty: 30 3RF metoprolol tartrate 25 mg Tablet 25 mg PO BID@0900,2100 Qty: 180 0RF furosemide [Lasix] 20 mg tablet 20 mg PO DAILY PRN (Reason: edema) Qty: 30 0RF Continued ezetimibe [Zetia] 10 mg tablet 10 mg PO QAM Qty: 30 0RF Rx Instructions: patient needs follow up for future refills losartan 100 mg tablet 100 mg PO QAM Qty: 30 0RF Rx Instructions: patient needs follow up for future refills vitamin E 100 unit Capsule 100 unit PO DAILY Qty: 0 aspirin 81 mg Tablet,Delayed Release (Dr/Ec) 81 mg PO QAM levothyroxine [Synthroid] 25 mcg tablet 25 mcg PO QAM pantoprazole 40 mg tablet,delayed release (DR/EC) 40 mg PO DAILY PRN (Reason: Heartburn) albuterol sulfate [Ventolin HFA] 90 mcg/actuation HFA aerosol inhaler 2 inh inhalation QID PRN (Reason: shortness of breath or wheezing) Qty: 6.7 0RF Discontinued metoprolol succinate 25 mg capsule,sprinkle,ER 24hr 25 mg PO DAILY Qty: 30 0RF Discharge Orders: Discharge Order (Routine); Ordered 09/11/22 Ordered By: Lex Dill Referrals: Denis Nowak MD [Primary Care Provider] - 4-7 days Kavon Cordoba MD [Physician] - 2 weeks (HFpEF, MVR, AFib RVR) Discharge Diet: Cardiac Patient Instructions: Apixaban (By mouth), Congestive Heart Failure, A-fib (Atrial Fibrillation) (GEN), Mitral Regurgitation (GEN), Heart Healthy Diet (GEN), Hypertension (GEN), COVID-19 (Coronavirus Disease 2019) (GEN) Activity Restrictions/Additional Instructions: You were found to have mild-moderate COVID-19 infection. In case you are having cough, use cough medicine as needed. Isolate over the next 5 days, if in 5 days your symptoms are improving, you are not spiking fever, and otherwise doing better, you can discontinue isolation. In case experience worsening shortness of breath, extreme tiredness, worsening cough, chest pain, or any other concerning symptoms, go to ER. Please note we are also finding that you are having grade 2 diastolic dysfunction, as well as mild to moderate mitral regurgitation which may contribute to you developing diastolic congestive heart failure. You are prescribed a diuretic, however, please only take it as needed in case of worsening shortness of breath with lying down or exertion, or lower extremity edema or rapid weight gain of more than 3 pounds in 2 days. Please follow-up with your primary doctor and you are also referred for follow-up with cardiology with regards to Episode of diastolic CHF, diastolic dysfunction as well as mitral valve regurgitation. Due to atrial fibrillation and with the risk factors for stroke as per discussion you are also started on a blood thinner medication with Eliquis. Please avoid any injury or fall. In case of minor bleeding apply pressure. In case bleeding not resolving, or major or concerning bleeding, seek medical attention immediately. Due to initial fast heart rate with atrial fibrillation with rapid ventricular response your metoprolol is changed to a different formulation from succinate to tartrate 25 mg twice daily for better heart rate control. You are also found to have suboptimally controlled high blood pressure. Amlodipine is added to your regimen. Please monitor blood pressures at least twice daily at home. Write down values to bring to your appointment. Maintain heart healthy diet. Discharge Attestations Time Spent in Discharge Care*: greater than 30 min Quality Metrics Clinical Quality Measures [ No reported AMI, CVA or VTE this stay] Coding Level of Care Code 71228 Total time (in minutes) for Discharge: 55 Diagnoses Acute exacerbation of CHF (congestive heart failure) I50.9 Atrial fibrillation with RVR I48.91 Hypothyroidism E03.9 B12 deficiency E53.8 A-fib I48.91 Dyslipidemia (high LDL; low HDL) E78.5 Benign essential HTN I10 GERD (gastroesophageal reflux disease) K21.9 Atherosclerotic heart disease of [place] coronary artery without angina pectoris I25.10 [place] vs. transplanted heart: [place] heart Chronic episodic atrial fibrillation I48.20
== END 2022-09-11 14:53 ==
LOC: ER 09-11 01:03 → CSU 09-11 01:29
PROVIDERS: Admitting Provider Internal Medicine; Emergency Provider Emergency Medicine; PCP Internal Medicine; Visit Provider Internal Medicine
DX: I48.20 Chronic atrial fibrillation, unspecified (principal); U07.1 COVID-19; R77.8 Other specified abnormalities of plasma proteins; Z79.82 Long term (current) use of aspirin; I34.0 Nonrheumatic mitral (valve) insufficiency; I25.10 Atherosclerotic heart disease of native coronary artery without angina pectoris; I10 Essential (primary) hypertension; E78.5 Hyperlipidemia, unspecified; K21.9 Gastro-esophageal reflux disease without esophagitis; M79.7 Fibromyalgia; Z79.899 Other long term (current) drug therapy
CPT/HCPCS: 36415; 71045; 71275; 80053; 83036; 83605; 83880; 84145; 84443; 84484; 85025; 85378; 87486; 87581; 87633; 93005; 93306; 94640; 94664; 94760; 96372; 96374; 96375; 99285; G0378; J1100; J1644; J1940; J2270; J3490; J7040; Q9967

== ENCOUNTER → 2023-02-03 09:20 | Outpatient (BNVA) | payer MEDICARE, MEDICAID, SELFPAY | PROVIDERS: PCP Internal Medicine; Visit Provider Nurse Practitioner Family | DX: M25.532 Pain in left wrist (principal) | CPT/HCPCS: 73110 ==

== ENCOUNTER 2023-02-09 07:15 | Emergency (ER) | payer MEDICARE, MEDICAID, SELFPAY ==
[2023-02-09 07:22] VITALS: BP 177/111; PULSE 114; RESP 18; TEMP 36.8; O2SAT 96; BMI 32.3
[2023-02-09 07:30] VITALS: BP 155/95; PULSE 113; RESP 16; O2SAT 97
--- NOTE | 2023-02-09 07:42 | CTR_ITS ---
PROCEDURE INFORMATION: Exam: CT Head Without Contrast Exam date and time: 02/09/2023 7:56 AM Age: 82 years old Clinical indication: Dizziness; Additional info: Dizzy TECHNIQUE: Imaging protocol: Computed tomography of the head without contrast. Radiation optimization: All CT scans at this facility use at least one of these dose optimization techniques: automated exposure control; mA and/or kV adjustment per patient size (includes targeted exams where dose is matched to clinical indication); or iterative reconstruction. REPORTING DATA: Count of CT and Cardiac NM exams in prior 12 months: This patient has received [address] and 0 known cardiac nuclear medicine studies in the 12 months prior to the current study. COMPARISON: CT head wo con* [id number] 05/13/2021 7:16 AM RADIATION DOSE METRICS: Total DLP (mGy-cm): 1154.44 FINDINGS: Study is degraded by motion artifact. Brain: There is no mass effect, midline shift, acute hemorrhage, extra-axial fluid collection or acute lobar infarct. Cerebral ventricles: No ventriculomegaly. Paranasal sinuses: Visualized sinuses are unremarkable. No fluid levels. Mastoid air cells: Visualized mastoid air cells are well aerated. Orbital cavities: The patient is post bilateral cataract surgery. The patient is post bilateral cataract surgery. Bones/joints: Unremarkable. No acute fracture. Soft tissues: Unremarkable. CT/CT head wo con* [id number] IMPRESSION: No acute intracranial process.
--- NOTE | 2023-02-09 07:42 | XRR_ITS ---
PROCEDURE INFORMATION: Exam: XR Chest Exam date and time: 02/09/2023 7:59 AM Age: 82 years old Clinical indication: Shortness of breath; Additional info: Dizzy SOB TECHNIQUE: Imaging protocol: Radiologic exam of the chest. Views: 1 view. COMPARISON: CT angio chest PE protcl [id number] 09/11/2022 12:21 AM FINDINGS: Lungs: Unremarkable. No consolidation. Pleural spaces: Unremarkable. No pleural effusion. No pneumothorax. Heart/Mediastinum: Mild cardiomegaly. Uncoiling of the thoracic aorta. Bones/joints: Unremarkable. XR/XR chest 1V portable [id number] IMPRESSION: No acute findings.
--- NOTE | 2023-02-09 07:44 | ECG_ITS ---
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 Measurements Intervals [place] Rate: 91 P: 0 [place]: 0 QRS: -9 QRSD: 78 T: 39 QT: 347 QTc: 427 Interpretive Statements ATRIAL FIBRILLATION ABNORMAL RHYTHM ECG Compared to ECG 09/11/2022 06:25:03 Sinus rhythm no longer present Myocardial infarct finding no longer present Electronically Signed On 02-09-2023 21:28:34 CHASSIS INSPECTOR by Anna Soto M.D. [id number]
--- NOTE | 2023-02-09 07:53 | PC.PHAR ---
PT STS HE ONLY TAKES 3 MEDICATIONS A DAY ASP 81, LEVOTHYROXINE 25 MCG, AND VITAMIN E- PT HAS BEEN ON SEVERAL BP MEDS, DR SARGENT REQUESTED MEDICATIONS BE LEFT IN MED LIST WITH UNKNOWN LAST TAKEN SO HE CAN SEE WHAT PT IS SUPPOSED TO BE TAKING
[2023-02-09] MEDS: metoprolol tartrate 1 mg/1 mL SDV 5 mL 5 MG IVP (07:56)
[2023-02-09 07:58] LABS: Basophils % 0.5 %; Eosinophils # 0.1 10^3/uL (0.0-0.8); Eosinophils % 1.1 %; Lymphocytes # 1.4 10^3/uL (0.8-4.8); Lymphocytes % 23.3 %; Mean Corpuscular HGB Conc 33.8 g/dL (30-55); Mean Corpuscular Hemoglobin 32.9 pg (27-33); Mean Corpuscular Volume 97.3 fl (82-101); Mean Platelet Volume 9.5 fL (7.4-10.4); Monocytes # 0.7 10^3/uL (0.2-0.9); Monocytes % 11.4 %; Neutrophils # 3.89 10^3/uL (1.8-7.7); Neutrophils % 63.2 %; Nucleated Red Blood Cells % 0 %; Platelet Count 210 10^3/cmm (157-399); Red Blood Count 4.83 10^6/uL (3.85-5.65); Red Cell Distribution Width 13.3 % (12.1-15.1); White Blood Count 6.15 10^3/uL (3.29-11.43)
--- NOTE | 2023-02-09 08:03 | W.ED.DIZZY ---
HPI - Dizziness General: Chief Complaint: Dizziness Stated Complaint: BP Time Seen by Provider: 02/09/23 07:17 History of Present Illness: HPI Narrative: Mr. Orozco is a pleasant 82-year-old male who brought himself to the hospital today. He tells me he does not have any significant problems, but on chart review, it appears he has a history of coronary disease, atrial fibrillation, hypertension, and hypothyroidism. He presents with dizziness upon waking today. He felt woozy as if he may pass out. This is a new sensation for him. He felt well last night. He says he is more short of breath than normal this morning. However, the symptoms are resolved on my examination. He says he is breathing better, and is not dizzy anymore. He denies any language problems, weakness, or vision changes. He is able to walk normally. He appears to not be taking Eliquis currently, as well as amlodipine, losartan, or metoprolol. Associated symptoms: Denies chest pain, chills, headache(s), nausea, palpitations or vomiting Associated neuro symptoms: Deny confusion Review of Systems Const: Denies: fever(s), chills or body aches Eyes: Denies: change in vision Card: Denies: chest pain or palpitations Resp: Denies: productive cough, non-productive cough or wheezing GI: Denies: abdominal pain, nausea, vomiting, diarrhea or hematochezia Skin/Breast: Denies: rash Neuro: Denies: headache(s), weakness in extremities or confusion PFS ED PFSH: Medical History Atherosclerotic heart disease of [place] coronary artery without angina pectoris Benign essential HTN Calculus of kidney with calculus of ureter Chronic episodic atrial fibrillation Dyslipidemia (high LDL; low HDL) Fibromyalgia GERD (gastroesophageal reflux disease) History of atrial fibrillation History of colon polyps Insomnia Left ureteral calculus Lumbar disc disease Renal mass Surgical History History of cardiac cath History of cholecystectomy History of colonoscopy History of shoulder surgery Family History Brother No problems noted. Father , at age 93 Dementia Parkinson disease Mother , at age 75 No problems noted. Denies family history of Diabetes CAD (coronary artery disease) Clotting disorder Chronic kidney disease (CKD) Suicide Anesthesia complication Bleeding disorder Lung disease Cancer Stroke Social History Smoking and tobacco/nicotine status: never used tobacco/nicotine Alcohol intake: current Alcohol intake frequency: holidays/special occasions only Substance/Drug Use: never Housing: House Marital status: / Current occupational status: retired Physical Exam Const: COMMON NORMALS: no acute distress GENERAL APPEARANCE: cooperative; not ill appearing and not frail appearing HENMT: COMMON NORMALS: normocephalic, atraumatic and Normal external nose present HEAD & SCALP: normocephalic and atraumatic FACE & SINUS: normal facial exam and face symmetric NOSE: Normal external nose present Eye: COMMON NORMALS: Equal, round and reactive pupils present and EOMs intact bilaterally PUPIL: Yes Equal, round and reactive pupils present Neck/C-Spine: GENERAL: Yes trachea midline Chest: CHEST: Yes Symmetrical chest wall rise Resp: COMMON NORMALS: normal respiratory effort, No retractions, No use of accessory muscles and clear to auscultation bilaterally AUSCULTATION: clear to auscultation bilaterally Cardio: RATE: tachycardic RHYTHM: abnormal rhythm irregularly irregular GI: COMMON NORMALS: Normal to inspection, nondistended, normoactive bowel sounds present Extremity: GENERAL: Yes edema (1+) Neuro: DELMY COMA SCALE: document GCS findings [employer] coma scale eye opening: Spontaneous [employer] coma scale verbal response: Orientated Dlemy coma scale motor response: Obey commands [employer] coma scale total score: 15 SENSORY EXAM: Yes extremities (intact) Psych: COMMON NORMALS: speech normal SPEECH: Yes normal speech Skin: COMMON NORMALS: no rashes or lesions noted GENERAL SKIN EXAM: no rashes or lesions noted Course Vital Signs: Vital signs: Vital Signs Temperature 98.3 F 02/09/23 07:22 Pulse Rate 85 02/09/23 08:45 Respiratory Rate 16 02/09/23 08:45 Blood Pressure 158/113 02/09/23 08:45 Pulse Oximetry 98 02/09/23 08:45 Oxygen Delivery Me thod Room Air 02/09/23 07:30 MDM - Dizziness Medical Decision Making Mr. Orozco has a NIH score of 0. He is tachycardic and irregular on arrival. He is moderately hypertensive. Metoprolol improved this. CBC is normal. Other laboratories pending. He appears to be either purposefully or nonpurposely noncompliant with some of his medications. Lab Data 02/09/23 07:53 02/09/23 07:53 Radiology Impressions Chest X-Ray 02/09/23 07:42 IMPRESSION: No acute findings. Head CT 02/09/23 07:42 IMPRESSION: No acute intracranial process. Laboratory Results WBC 6.15 10^3/uL (3.29-11.43) 02/09/23 07:53 RBC 4.83 10^6/uL (3.85-5.65) 02/09/23 07:53 Hgb 15.90 g/dL (11.27-16.99) 02/09/23 07:53 Hct 47.0 % (37-53) 02/09/23 07:53 MCV 97.3 fl (82-101) 02/09/23 07:53 MCH 32.9 pg (27-33) 02/09/23 07:53 MCHC 33.8 g/dL (30-55) 02/09/23 07:53 RDW 13.3 % (12.1-15.1) 02/09/23 07:53 Plt Count 210 10^3/cmm (157-399) 02/09/23 07:53 MPV 9.5 fL (7.4-10.4) 02/09/23 07:53 Neut % (Auto) 63.2 % 02/09/23 07:53 Lymph % (Auto) 23.3 % 02/09/23 07:53 [place] % (Auto) 11.4 % 02/09/23 07:53 Eos % (Auto) 1.1 % 02/09/23 07:53 Baso % (Auto) 0.5 % 02/09/23 07:53 Neut # (Auto) 3.89 10^3/uL (1.8-7.7) 02/09/23 07:53 Lymph # (Auto) 1.4 10^3/uL (0.8-4.8) 02/09/23 07:53 [place] # (Auto) 0.7 10^3/uL (0.2-0.9) 02/09/23 07:53 Eos # (Auto) 0.1 10^3/uL (0.0-0.8) 02/09/23 07:53 Baso # (Auto) 0.0 10^3/uL (0.0-0.1) 02/09/23 07:53 Nucleated RBC % (auto) 0 % 02/09/23 07:53 Nucleated RBCs # 0.0 /100WBC 02/09/23 07:53 PT 14.60 SECONDS (12.1-14.9) 02/09/23 07:53 INR 1.10 (0.8-1.2) 02/09/23 07:53 APTT 29.6 SECONDS (23.9-36.7) 02/09/23 07:53 Sodium 139 mmol/L (136-145) 02/09/23 07:53 Potassium 4.1 mmol/L (3.5-5.1) 02/09/23 07:53 Chloride 103 mmol/L (98-107) 02/09/23 07:53 Carbon Dioxide 23 mmol/L (22-29) 02/09/23 07:53 Anion Gap 17.1 (5-19) 02/09/23 07:53 BUN 8 mg/dL (8-23) 02/09/23 07:53 Creatinine 1.1 mg/dL (0.7-1.2) 02/09/23 07:53 GFR Calculation Not Reportable 02/09/23 07:53 Glucose 118 mg/dL (65-115) H 02/09/23 07:53 Calculated Osmolality 287 mOsm/kg (285-295) 02/09/23 07:53 Calcium 9.2 mg/dL (8.5-10.5) 02/09/23 07:53 Magnesium 1.7 mg/dL (1.7-2.3) 02/09/23 07:53 Total Bilirubin 1.3 mg/dL (0.15-1.2) H 02/09/23 07:53 AST 22 U/L (0-40) 02/09/23 07:53 ALT 12 U/L (0-41) 02/09/23 07:53 Alkaline Phosphatase 90 U/L (40-130) 02/09/23 07:53 NT-Pro-B Natriuret Pep 990 pg/mL (0-450) H 02/09/23 07:53 Total Protein 7.8 g/dL (6.6-8.7) 02/09/23 07:53 Albumin 4.0 g/dL (3.5-5.2) 02/09/23 07:53 Globulin 3.8 g/dL (1.3-4.6) 02/09/23 07:53 TSH 2.36 uIU/mL (0.27-4.20) 02/09/23 07:53 All radiology interpretation(s) finalized by discharge Discharge Plan Discharge Patient Disposition: Home Clinical Impression: Atrial fibrillation with RVR, Benign essential HTN Condition: Stable Prescriptions: Continued ezetimibe [Zetia] 10 mg tablet 10 mg PO QAM Qty: 30 0RF Rx Instructions: patient needs follow up for future refills aspirin 81 mg Tablet,Delayed Release (Dr/Ec) 81 mg PO QAM furosemide [Lasix] 20 mg tablet 20 mg PO DAILY PRN (Reason: edema) Qty: 30 0RF vitamin E 268 mg (400 unit) Capsule 268 mg PO DAILY metoprolol tartrate 25 mg Tablet 25 mg PO BID@0900,2100 Qty: 180 0RF apixaban 5 mg tablet 5 mg PO BID Qty: 180 0RF levothyroxine [Synthroid] 25 mcg tablet 25 mcg PO QAM Discontinued losartan 100 mg tablet 100 mg PO QAM Qty: 30 0RF Rx Instructions: patient needs follow up for future refills amlodipine 5 mg Tablet 5 mg PO DAILY Qty: 90 0RF Discharge Orders: Discharge ED (Routine); Ordered 02/09/23 Ordered By: Wisam Mendez Referrals: Denis Nowak MD [Primary Care Provider] - 1-3 days Patient Instructions: A-fib (Atrial Fibrillation) (ED), Hypertension (ED), Opioid Safety, Pain Management Activity Restrictions/Additional Instructions: Above listed other medications you should be taking to maintain a controlled heart rate with your atrial fibrillation, and a good blood pressure, which will keep you from getting the symptoms you presented with today. Take medication as instructed as above. Metoprolol and apixaban have been printed for you to fill at the pharmacy in case you do not have them at home. See your doctor next week. Take these instructions about medication with you, and let them know you were seen here in the emergency room. That way your medication list can be updated. Return for any return of dizziness, language problems, weakness, new vision problems, other concerning symptoms. Coding Level of Care Code ED Director Business Development for [facility] NIH stroke score NIHSS Level Of Consciousness - 1a: 0 Level Of Consciousness Questions - 1b: Both Correct Level Of Consciousness Commands - 1c: Both Correct Best Gaze - 2: Normal Visual Guo - 3: No Visual Loss Facial Palsy - 4: Normal Motor Arm Right - 5: No Drift Motor Arm Left - 5: No Drift Motor Leg Right - 6: No Drift Motor Leg Left - 6: No Drift Limb Ataxia - 7: Absent Sensory - 8: Normal Best Language - 9: No Aphasia Dysarthia - 10: Normal Extinction And Inattention - 11: 0 Score Total Score: 0
[2023-02-09 08:15] LABS: Partial Thromboplastin Time 29.6 SECONDS (23.9-36.7)
[2023-02-09 08:25] LABS: Alanine Aminotransferase 12 U/L (0-41); Alkaline Phosphatase 90 U/L (40-130); Anion Gap 17.1 (5-19); Aspartate Amino Transferase 22 U/L (0-40); Blood Urea Nitrogen 8 mg/dL (8-23); Calcium 9.2 mg/dL (8.5-10.5); Carbon Dioxide 23 mmol/L (22-29); Chloride 103 mmol/L (98-107); Creatinine Clr Calc Pharmacy 52.7243; Globulin 3.8 g/dL (1.3-4.6); Glucose 118 mg/dL (65-115); Magnesium 1.7 mg/dL (1.7-2.3); Osmolality Calculated 287 mOsm/kg (285-295); Potassium 4.1 mmol/L (3.5-5.1); Sodium 139 mmol/L (136-145); Total Bilirubin 1.3 mg/dL (0.15-1.2); Total Protein 7.8 g/dL (6.6-8.7)
[2023-02-09 08:29] LABS: NT Pro B Type Natriuretic Pept 990 pg/mL (0-450)
[2023-02-09 08:45] VITALS: BP 158/113; PULSE 85; RESP 16; O2SAT 98
[2023-02-09 08:52] LABS: Thyroid Stimulating Hormone 2.36 uIU/mL (0.27-4.20)
== END 2023-02-09 09:23 | disposition home or self-care (01) ==
PROVIDERS: Emergency Provider Emergency Medicine; PCP Internal Medicine
DX: I48.20 Chronic atrial fibrillation, unspecified (principal); I10 Essential (primary) hypertension; Z79.82 Long term (current) use of aspirin; I25.10 Atherosclerotic heart disease of native coronary artery without angina pectoris; E78.5 Hyperlipidemia, unspecified
CPT/HCPCS: 70450; 71045; 80053; 83735; 83880; 84443; 85025; 85610; 85730; 93005; 96374; 99285; J3490

== ENCOUNTER 2023-02-18 05:52 | Emergency (ER) | payer MEDICARE, MEDICAID, SELFPAY ==
[2023-02-18 06:04] VITALS: BP 148/107; PULSE 90; RESP 18; TEMP 36.7; O2SAT 96; BMI 30.4
--- NOTE | 2023-02-18 06:09 | ECG_ITS ---
[facility] Test Date: 2023-02-18 Pat Name: David Orozco Department: Room: Gender: Male Medical Reception: : 1940 Requested By: Glynn Stephen Order Number: [id number] Jessica MD: Maximino Berkowitz M.D. Measurements Intervals [place] Rate: 87 P: 0 TN: 0 QRS: -2 QRSD: 92 T: 37 QT: 354 QTc: 428 Interpretive Statements ATRIAL FIBRILLATION Compared to ECG 02/09/2023 08:05:02 No significant changes Electronically Signed On 02-18-2023 11:43:31 RIB CUTTER by Maximino Berkowitz M.D. [id number] f
--- NOTE | 2023-02-18 06:20 | ED_ITS ---
HPI - SOB/Dyspnea 2 General: Chief Complaint: Shortness of Breath/Dyspnea Stated Complaint: SOB Time Seen by Provider: 02/18/23 06:16 Source: patient Mode of arrival: ambulatory History of Present Illness: HPI Narrative: 82-year-old male presents emergency room complaining of shortness of breath. He has a history of atrial fibrillation he states he woke up short of breath this morning some pain between his shoulder blades. Pain resolved spontaneously. He is not taking any of his medications this morning he has a history of A-fib and is on metoprolol apixaban and aspirin. No fever sweats chills no nausea vomiting or diarrhea. General he is a negative review of systems other than his chief complaint of brief episode of chest pain and shortness of breath this morning. No recent medication changes. Blood pressure little bit high on arrival here likely from not having taken his medications this morning. He does not notice any swelling in his legs. No recent orthopnea. He has had a few echoes in the last couple years all have shown some diastolic dysfunction with ejection fraction in the 65 to 70% range. Graded exercise stress test done in July 2020 did not show any acute changes. There is a comment in the test that a nuclear scan would be documented separately but reading the body of the text and reviewing the rest of the chart it looks like this was just a graded exercise stress test and there was no sestamibi portion done. Patient denies any previous angiograms. MD elicited complaint: shortness of breath Pertinent past history: other (Atrial fibrillation) Onset (ago): hour(s) Severity: mild Exacerbating factors: nothing Relieving factors: nothing Associated symptoms: Reports chest pain; Deny abdominal pain, chest congestion, cough, diaphoresis, dizziness, extremity pain, fever(s), hemoptysis, lightheadedness, myalgias, nausea, orthopnea, palpitations, paresthesias, polydipsia, polyuria, rash, sense of impending doom, syncope or vomiting Treatment prior to arrival: none Review of Systems 2 Const: Denies: fever(s), chills or diaphoresis Card: Reports: chest pain; Denies: palpitations, lightheadedness, syncope or orthopnea Resp: Reports: dyspnea; Denies: hemoptysis or chest congestion GI: Denies: abdominal pain, nausea or vomiting : Denies: dysuria, urinary frequency or urinary urgency Musc: Denies: neck pain, back pain or extremity pain Skin/Breast: Denies: rash Neuro: Denies: dizziness Endo: Denies: polyuria or polydipsia PFSH ED 2 PFSH: Medical History Left ureteral calculus Renal mass Calculus of kidney with calculus of ureter History of atrial fibrillation Dyslipidemia (high LDL; low HDL) Chronic episodic atrial fibrillation Benign essential HTN Atherosclerotic heart disease of [place] coronary artery without angina pectoris Insomnia History of colon polyps Lumbar disc disease GERD (gastroesophageal reflux disease) Fibromyalgia Surgical History History of cardiac cath History of cholecystectomy History of shoulder surgery History of colonoscopy Family History Brother No problems noted. Father , at age 93 Dementia Parkinson disease Mother , at age 75 No problems noted. Denies family history of Diabetes CAD (coronary artery disease) Clotting disorder Chronic kidney disease (CKD) Suicide Anesthesia complication Bleeding disorder Lung disease Cancer Stroke Social History Smoking and tobacco/nicotine status: never used tobacco/nicotine Alcohol intake: current Alcohol intake frequency: holidays/special occasions only Substance/Drug Use: never Housing: House Marital status: / Current occupational status: retired Physical Exam 2 Const: COMMON NORMALS: no acute distress GENERAL APPEARANCE: cooperative and comfortable ORIENTATION/CONSCIOUSNESS: Yes awake, Yes oriented to person, Yes oriented to place and Yes oriented to time HENMT: COMMON NORMALS: normocephalic, atraumatic and hearing grossly normal bilaterally HEAD & SCALP: normocephalic and atraumatic Resp: COMMON NORMALS: normal respiratory effort, No retractions, No use of accessory muscles and clear to auscultation bilaterally AUSCULTATION: clear to auscultation bilaterally Cardio: COMMON NORMALS: regular rate RATE: regular rate RHYTHM: abnormal rhythm irregularly irregular GI: COMMON NORMALS: Soft to palpation and No hepatosplenomegaly present A USCULTATION: Yes normoactive bowel sounds PALPATION: Yes Soft to palpation, No Tenderness to palpation present (GI), No Guarding due to palpation present (GI) and Yes No hepatosplenomegaly present Extremity: COMMON NORMALS: normal to inspection, capillary refill normal, no clubbing, cyanosis or edema, no calf tenderness and no pedal edema Neuro: SENSORIUM/ORIENTATION: Yes oriented to person, Yes oriented to place and Yes oriented to time Skin: COMMON NORMALS: no rashes or lesions noted GENERAL SKIN EXAM: no rashes or lesions noted Course 2 Vital Signs: Vital signs: Vital Signs Temperature 98.1 F 02/18/23 06:04 Pulse Rate 90 02/18/23 06:04 Respiratory Rate 18 02/18/23 06:04 Blood Pressure 148/107 02/18/23 06:04 Pulse Oximetry 96 02/18/23 06:04 Oxygen Delivery Me thod Room Air 02/18/23 06:04 MDM - SOB/Dyspnea Medical Decision Making BNP elevated he is stable at this time minimal changes on his chest x-ray. He is limiting his Lasix as needed. He is given a dose of Lasix IV here in the emergency room. Recommend that he start Lasix 40 mg daily for the next 5 days and resume 20 mg and take daily follow-up with his primary care doctor cardiology within the next 10 to 14 days return if has further problems. Medical Records I reviewed the patient's medical records. Lab Data I reviewed the patient's lab results. 02/18/23 06:23 02/18/23 06:23 Labs/Radiology: Laboratory Results WBC 7.46 10^3/uL (3.29-11.43) 02/18/23 06:23 RBC 4.86 10^6/uL (3.85-5.65) 02/18/23 06:23 Hgb 16.30 g/dL (11.27-16.99) 02/18/23 06:23 Hct 47.6 % (37-53) 02/18/23 06:23 MCV 97.9 fl (82-101) 02/18/23 06:23 MCH 33.5 pg (27-33) H 02/18/23 06:23 MCHC 34.2 g/dL (30-55) 02/18/23 06:23 RDW 13.7 % (12.1-15.1) 02/18/23 06:23 Plt Count 209 10^3/cmm (157-399) 02/18/23 06: MPV 10.1 fL (7.4-10.4) 02/18/23 06:23 Neut % (Auto) 67.4 % 02/18/23 06:23 Lymph % (Auto) 19.4 % 02/18/23 06:23 [place] % (Auto) 10.5 % 02/18/23 06:23 Eos % (Auto) 2.0 % 02/18/23 06:23 Baso % (Auto) 0.3 % 02/18/23 06:23 Neut # (Auto) 5.03 10^3/uL (1.8-7.7) 02/18/23 06:23 Lymph # (Auto) 1.5 10^3/uL (0.8-4.8) 02/18/23 06:23 [place] # (Auto) 0.8 10^3/uL (0.2-0.9) 02/18/23 06:23 Eos # (Auto) 0.2 10^3/uL (0.0-0.8) 02/18/23 06:23 Baso # (Auto) 0.0 10^3/uL (0.0-0.1) 02/18/23 06:23 Nucleated RBC % (auto) 0 % 02/18/23 06: Nucleated RBCs # 0.0 /100WBC 02/18/23 06:23 Sodium 137 mmol/L (136-145) 02/18/23 06:23 Potassium 4.1 mmol/L (3.5-5.1) 02/18/23 06:23 Chloride 101 mmol/L (98-107) 02/18/23 06:23 Carbon Dioxide 23 mmol/L (22-29) 02/18/23 06:23 Anion Gap 17.1 (5-19) 02/18/23 06:23 BUN 13 mg/dL (8-23) 02/18/23 06:23 Creatinine 1.1 mg/dL (0.7-1.2) 02/18/23 06:23 GFR Calculation Not Reportable 02/18/23 06:23 Glucose 99 mg/dL (65-115) 02/18/23 06:23 Calculated Osmolality 284 mOsm/kg (285-295) L 02/18/23 06:23 Calcium 9.3 mg/dL (8.5-10.5) 02/18/23 06:23 Total Bilirubin 1.6 mg/dL (0.15-1.2) H 02/18/23 06:23 AST 18 U/L (0-40) 02/18/23 06:23 ALT 11 U/L (0-41) 02/18/23 06:23 Alkaline Phosphatase 85 U/L (40-130) 02/18/23 06:23 Troponin T Baseline 10 ng/L (0-15) 02/18/23 06:23 NT-Pro-B Natriuret Pep 1299 pg/mL (0-450) H 02/18/23 06:23 Total Protein 7.6 g/dL (6.6-8.7) 02/18/23 06:23 Albumin 4.4 g/dL (3.5-5.2) 02/18/23 06:23 Globulin 3.2 g/dL (1.3-4.6) 02/18/23 06:23 XR interpretation done by ED provider, pending radiology final review Discharge Plan Discharge Patient Disposition: Home Clinical Impression: Congestive heart failure, History of atrial fibrillation Condition: Stable Prescriptions: New Lasix 40 mg tablet 40 mg PO DAILY Qty: 5 0RF No Action ezetimibe [Zetia] 10 mg tablet 10 mg PO QAM Qty: 30 0RF Rx Instructions: patient needs follow up for future refills aspirin 81 mg Tablet,Delayed Release (Dr/Ec) 81 mg PO QAM furosemide [Lasix] 20 mg tablet 20 mg PO DAILY PRN (Reason: edema) Qty: 30 0RF vitamin E 268 mg (400 unit) Capsule 268 mg PO DAILY metoprolol tartrate 25 mg Tablet 25 mg PO BID@0900,2100 Qty: 180 0RF apixaban 5 mg tablet 5 mg PO BID Qty: 180 0RF levothyroxine [Synthroid] 25 mcg tablet 25 mcg PO QAM Discharge Orders: Discharge ED (Routine); Ordered 02/18/23 Ordered By: Glynn David Referrals: Denis Nowak MD [Primary Care Provider] - Discharge Diet: Cardiac and Low Salt Discharge Activity: Increase activity as tolerated Patient Instructions: Opioid Safety, Pain Management Activity Restrictions/Additional Instructions: Thank you for choosing [facility] for your healthcare needs today. Please realize this is an emergency room and that we are providing you with a medical screening exam and this may not be complete and all inclusive of all the testing and or work up that you may need to determine your ailment or severity of your illness. It is very important that you follow up as instructed or that you return to the Emergency Department should you have concerns or if your condition changes or worsens in any way. You are seen today for complaint of shortness of breath you have some mild congestive heart failure recommend for the next 5 days take Lasix 40 mg daily at the end of that time resume your Lasix at 20 mg daily follow-up with your primary care doctor within the next 10 to 14 days Coding Level of Care Code ED Ophthalmic Medical Technician for [facility]
--- NOTE | 2023-02-18 06:22 | XR_ITS ---
WS: [id number] Exam: XR chest 1V portable [id number] Date/Time of Exam: 02/18/2023 6:51 AM Reason For Exam: dyspnea Comparison 02/09/2023. The lungs are fully expanded. No consolidating infiltrates. Chronic interstitial changes. Normal card iomediastinal silhouette and regional bony elements. DJD of both shoulders. IMPRESSION: 1. No acute cardiopulmonary finding.
[2023-02-18 06:45] LABS: Basophils % 0.3 %; Eosinophils # 0.2 10^3/uL (0.0-0.8); Hematocrit 47.6 % (37-53); Lymphocytes # 1.5 10^3/uL (0.8-4.8); Lymphocytes % 19.4 %; Mean Corpuscular HGB Conc 34.2 g/dL (30-55); Mean Corpuscular Hemoglobin 33.5 pg (27-33); Mean Corpuscular Volume 97.9 fl (82-101); Mean Platelet Volume 10.1 fL (7.4-10.4); Monocytes # 0.8 10^3/uL (0.2-0.9); Monocytes % 10.5 %; Neutrophils # 5.03 10^3/uL (1.8-7.7); Neutrophils % 67.4 %; Nucleated Red Blood Cells % 0 %; Platelet Count 209 10^3/cmm (157-399); Red Blood Count 4.86 10^6/uL (3.85-5.65); Red Cell Distribution Width 13.7 % (12.1-15.1); White Blood Count 7.46 10^3/uL (3.29-11.43)
[2023-02-18] MEDS: metoprolol tartrate 25 mg Tablet PO (06:45)
[2023-02-18] MEDS: aspirin 81 mg Chew Tablet 324 MG PO (06:45)
[2023-02-18] MEDS: apixaban 5 mg Tablet PO (06:45)
[2023-02-18 06:55] LABS: Troponin(5th) Baseline 10 ng/L (0-15)
[2023-02-18 07:03] LABS: Alanine Aminotransferase 11 U/L (0-41); Albumin Level 4.4 g/dL (3.5-5.2); Alkaline Phosphatase 85 U/L (40-130); Anion Gap 17.1 (5-19); Aspartate Amino Transferase 18 U/L (0-40); Blood Urea Nitrogen 13 mg/dL (8-23); Calcium 9.3 mg/dL (8.5-10.5); Carbon Dioxide 23 mmol/L (22-29); Chloride 101 mmol/L (98-107); Creatinine Clr Calc Pharmacy 54.6758; Globulin 3.2 g/dL (1.3-4.6); Glucose 99 mg/dL (65-115); NT Pro B Type Natriuretic Pept 1299 pg/mL (0-450); Osmolality Calculated 284 mOsm/kg (285-295); Potassium 4.1 mmol/L (3.5-5.1); Sodium 137 mmol/L (136-145); Total Bilirubin 1.6 mg/dL (0.15-1.2); Total Protein 7.6 g/dL (6.6-8.7)
[2023-02-18] MEDS: FUROsemide 10 mg/mL SDV 4mL 40 MG IVP (07:32)
[2023-02-18 08:44] LABS: Troponin 5 2HR 9.58 ng/L (0-15); Troponin 5 2HR Delta -0.42 ABS# (0-10)
== END 2023-02-18 08:36 | disposition home or self-care (01) ==
PROVIDERS: Emergency Provider Family Medicine; PCP Internal Medicine
DX: I11.0 Hypertensive heart disease with heart failure (principal); I50.9 Heart failure, unspecified; Z79.82 Long term (current) use of aspirin; E78.5 Hyperlipidemia, unspecified; I25.10 Atherosclerotic heart disease of native coronary artery without angina pectoris
CPT/HCPCS: 36415; 71045; 80053; 83880; 84484; 85025; 93005; 96374; 99285; J1940

== ENCOUNTER 2023-02-27 03:57 | Emergency (ER) | payer MEDICARE, MEDICAID, SELFPAY ==
[2023-02-27 03:59] VITALS: BP 192/130; PULSE 99; RESP 27; TEMP 36.8; O2SAT 97; BMI 30.4
--- NOTE | 2023-02-27 04:06 | XRR_ITS ---
PROCEDURE INFORMATION: Exam: XR Chest Exam date and time: 02/27/2023 4:13 AM Age: 82 years old Clinical indication: Dyspnea; Prior surgery; Surgery date: 6+ months; Surgery type: RT shoulder TECHNIQUE: Imaging protocol: Radiologic exam of the chest. Views: 1 view. COMPARISON: CR XR chest 1V portable [id number] 02/18/2023 6:53 AM FINDINGS: Lungs: Interstitial prominence without acute airspace disease. Pleural spaces: No pleural effusion. Heart/Mediastinum: Epicardial fat and cardiomegaly. Bones/joints: Osteopenia, degenerative change, and right rotator cuff repair. When correlating with the previous study, no significant interval changes are present. XR/XR chest 1V portable [id number] IMPRESSION: Stable appearance of the chest, not significantly changed from 02/18/2023 .
--- NOTE | 2023-02-27 04:06 | ECG_ITS ---
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 Measurements Intervals [place] Rate: 102 P: 0 MT: 0 QRS: 3 QRSD: 82 T: 59 QT: 350 QTc: 457 Interpretive Statements ATRIAL FIBRILLATION WITH RAPID VENTRICULAR RESPONSE MINIMAL ST DEPRESSION [0.025+ mV ST DEPRESSION] ABNORMAL RHYTHM ECG Compared to ECG 02/18/2023 06:09:37 ST (T wave) deviation now present Electronically Signed On 02-28-2023 19:13:37 MARKETING AUTOMATION SPECIALIST by Kavon Cordoba M.D. [id number]
[2023-02-27 04:16] LABS: Basophils % 0.2 %; Eosinophils # 0.1 10^3/uL (0.0-0.8); Eosinophils % 1.2 %; Hematocrit 48.4 % (37-53); Lymphocytes # 2.1 10^3/uL (0.8-4.8); Lymphocytes % 22.5 %; Mean Corpuscular HGB Conc 34.7 g/dL (30-55); Mean Platelet Volume 10.6 fL (7.4-10.4); Monocytes # 0.8 10^3/uL (0.2-0.9); Monocytes % 9.1 %; Neutrophils # 6.14 10^3/uL (1.8-7.7); Neutrophils % 66.7 %; Nucleated Red Blood Cells % 0 %; Platelet Count 214 10^3/cmm (157-399); Red Blood Count 4.94 10^6/uL (3.85-5.65); Red Cell Distribution Width 13.9 % (12.1-15.1); White Blood Count 9.21 10^3/uL (3.29-11.43)
--- NOTE | 2023-02-27 04:18 | W.ED.ARRPALP ---
HPI - Arrhythmia/Palpitations General: Chief Complaint: Arrhythmia/Palpitations Stated Complaint: SOB, Time Seen by Provider: 02/27/23 04:06 History of Present Illness: Patient presents to the ER with complaints of shortness of breath that woke him up about 1:00 this morning. Patient states he went to bed feeling just fine. Patient's of rather poor historian. Patient is on Eliquis for A-fib. Patient's blood pressure upon arrival was 192/130. Patient's O2 sat on room air was 97%. It does appear patient may have a history of A-fib due to possibly being on Lasix. Patient said he is taken all of his medicine and has not missed any doses but yet he does not know what medicines he takes. Patient denies any chest pain, nausea vomiting diarrhea, edema to the lower extremities, On further review of the chart this has happened to him before. Patient does have a history of A-fib he is on metoprolol apixaban and aspirin. No recent medication changes. He has had multiple echoes in the last couple years showing his ejection fraction is 65 to 70% range with some diastolic dysfunction. He had a graded exercise stress test done in July 2020 that did not show any acute changes. Review of Systems General: Reports: 10 or more systems reviewed and unremarkable except in HPI and below PFSH ED PFSH: Medical History Left ureteral calculus Renal mass Calculus of kidney with calculus of ureter History of atrial fibrillation Dyslipidemia (high LDL; low HDL) Chronic episodic atrial fibrillation Benign essential HTN Atherosclerotic heart disease of [place] coronary artery without angina pectoris Insomnia History of colon polyps Lumbar disc disease GERD (gastroesophageal reflux disease) Fibromyalgia Surgical History History of cardiac cath History of cholecystectomy History of shoulder surgery History of colonoscopy Family History Brother No problems noted. Father , at age 93 Dementia Parkinson disease Mother , at age 75 No problems noted. Denies family history of Diabetes CAD (coronary artery disease) Clotting disorder Chronic kidney disease (CKD) Suicide Anesthesia complication Bleeding disorder Lung disease Cancer Stroke Social History Smoking and tobacco/nicotine status: never used tobacco/nicotine Alcohol intake: current Alcohol intake frequency: holidays/special occasions only Substance/Drug Use: never Housing: House Marital status: / Current occupational status: retired Physical Exam Const: COMMON NORMALS: no acute distress, average body habitus, patient oriented x3, no limitations, healthy appearing, alert and well nourished HENMT: COMMON NORMALS: normocephalic, atraumatic, hearing grossly normal bilaterally, external ears normal, Normal external nose present, moist oral mucous membranes and oropharynx normal HEAD & SCALP: normocephalic and atraumatic NOSE: Normal external nose present EXTERNAL EAR: Yes external ears normal Neck/C-Spine: COMMON NORMALS: no JVD Chest: COMMONS NORMALS: normal inspection of the chest and normal palpation of entire chest wall Resp: COMMON NORMALS: normal respiratory effort, No retractions, No use of accessory muscles and clear to auscultation bilaterally AUSCULTATION: clear to auscultation bilaterally Cardio: COMMON NORMALS: no JVD, S1 normal heart sound present, S2 normal heart sound present, No gallops present (Cardio), No clicks present (Cardio) and No murmurs present (Cardio); negative for regular rate (Irregularly irregular rhythm) RATE: abnormal rate (Irregularly irregular rhythm) HEART SOUNDS: S1 normal heart sound present and S2 normal heart sound present GI: COMMON NORMALS: Normal to inspection, nondistended, normoactive bowel sounds present, Soft to palpation, non-tender, No hepatosplenomegaly present and no masses PALPATION: Yes Soft to palpation and Yes No hepatosplenomegaly present : COMMON NORMALS: Yes no CVA tenderness BLADDER/KIDNEY EXAM: Yes no CVA tenderness Back/Pelvis: COMMON NORMALS: no CVA tenderness Neuro: COMMON NORMALS: patient oriented x3 SENSORIUM/ORIENTATION: Yes alert Course Vital Signs: Vital signs: Vital Signs Temperature 98.2 F 02/27/23 03:59 Pulse Rate 101 H 02/27/23 04:42 Respiratory Rate 15 02/27/23 04:42 Blood Pressure 121/80 02/27/23 04:42 Pulse Oximetry 96 02/27/23 04:42 Oxygen Delivery Me thod Room Air 02/27/23 04:42 MDM - Arrhythmia/Palpitations Medical Decision Making Patient presented with shortness of breath and high blood pressure 192/130. Patient was satting 97% on room air chest x-ray was stable as well as all blood work included CBC CMP cardiac enzymes TSH BNP. Patient's blood pressure decreased down to 121/80 and patient was lying comfortably in bed when I discussed these results with him. Patient be discharged to go home and follow-up with his PCP within the next week for further evaluation and treatment. Differential Diagnosis Likely artial fibrillation; Unlikely palpitations, anxiety, sinus tachycardia, artial flutter, ventricular premature beats, supraventricular tachycardia, ventricular tachycardia or WPW Medical Records I reviewed the patient's medical records. Lab Data I reviewed the patient's lab results. 02/27/23 04:09 02/27/23 04:40 Radiology Impressions Chest X-Ray 02/27/23 04:06 IMPRESSION: Stable appearance of the chest, not significantly changed from 02/18/2023 . Laboratory Results WBC 9.21 10^3/uL (3.29-11.43) 02/27/23 04:09 RBC 4.94 10^6/uL (3.85-5.65) 02/27/23 04:09 Hgb 16.80 g/dL (11.27-16.99) 02/27/23 04:09 Hct 48.4 % (37-53) 02/27/23 04:09 MCV 98.0 fl (82-101) 02/27/23 04:09 MCH 34.0 pg (27-33) H 02/27/23 04:09 MCHC 34.7 g/dL (30-55) 02/27/23 04:09 RDW 13.9 % (12.1-15.1) 02/27/23 04:09 Plt Count 214 10^3/cmm (157-399) 02/27/23 04:09 MPV 10.6 fL (7.4-10.4) H 02/27/23 04:09 Neut % (Auto) 66.7 % 02/27/23 04:09 Lymph % (Auto) 22.5 % 02/27/23 04:09 [place] % (Auto) 9.1 % 02/27/23 04:09 Eos % (Auto) 1.2 % 02/27/23 04:09 Baso % (Auto) 0.2 % 02/27/23 04:09 Neut # (Auto) 6.14 10^3/uL (1.8-7.7) 02/27/23 04:09 Lymph # (Auto) 2.1 10^3/uL (0.8-4.8) 02/27/23 04:09 [place] # (Auto) 0.8 10^3/uL (0.2-0.9) 02/27/23 04:09 Eos # (Auto) 0.1 10^3/uL (0.0-0.8) 02/27/23 04:09 Baso # (Auto) 0.0 10^3/uL (0.0-0.1) 02/27/23 04:09 Nucleated RBC % (auto) 0 % 02/27/23 04:09 Nucleated RBCs # 0.0 /100WBC 02/27/23 04:09 PT 14.90 SECONDS (12.1-14.9) 02/27/23 04:09 INR 1.13 (0.8-1.2) 02/27/23 04:09 Sodium 135 mmol/L (136-145) L 02/27/23 04:40 Potassium 3.4 mmol/L (3.5-5.1) L 02/27/23 04:40 Chloride 103 mmol/L (98-107) 02/27/23 04:40 Carbon Dioxide 20 mmol/L (22-29) L 02/27/23 04:40 Anion Gap 15.4 (5-19) 02/27/23 04:40 BUN 10 mg/dL (8-23) 02/27/23 04:40 Creatinine 0.9 mg/dL (0.7-1.2) 02/27/23 04:40 GFR Calculation Not Reportable 02/27/23 04:40 Glucose 96 mg/dL (65-115) 02/27/23 04:40 Calculated Osmolality 279 mOsm/kg (285-295) L 02/27/23 04:40 Calcium 8.4 mg/dL (8.5-10.5) L 02/27/23 04:40 Total Bilirubin 1.4 mg/dL (0.15-1.2) H 02/27/23 04:40 AST 13 U/L (0-40) 02/27/23 04:40 ALT 10 U/L (0-41) 02/27/23 04:40 Alkaline Phosphatase 69 U/L (40-130) 02/27/23 04:40 Troponin T Baseline 10 ng/L (0-15) 02/27/23 04:09 NT-Pro-B Natriuret Pep 1931 pg/mL (0-450) H 02/27/23 04:40 Total Protein 6.4 g/dL (6.6-8.7) L 02/27/23 04:40 Albumin 3.6 g/dL (3.5-5.2) 02/27/23 04:40 Globulin 2.8 g/dL (1.3-4.6) 02/27/23 04:40 TSH 4.29 uIU/mL (0.27-4.20) H 02/27/23 04:40 All radiology interpretation(s) finalized by discharge EKG Data EKG 1: I personally reviewed and interpreted this EKG as follows: EKG interpretation date: 02/27/23 EKG interpretation time: 04:03 Prior EKG tracings: available for review Interpretation: EKG shows ventricular rate 102 beats minute, QRS duration 82, QTc of 4 9, A-fib with RVR, minimal ST depression Other EKG comments: Chest X-Ray 02/27/23 04:06 IMPRESSION: Stable appearance of the chest, not significantly changed from 02/18/2023 . Discharge Plan Discharge Patient Disposition: Home Clinical Impression: A-fib, Dyspnea Condition: Stable Prescriptions: No Action ezetimibe [Zetia] 10 mg tablet 10 mg PO QAM Qty: 30 0RF Rx Instructions: patient needs follow up for future refills aspirin 81 mg Tablet,Delayed Release (Dr/Ec) 81 mg PO QAM furosemide [Lasix] 20 mg tablet 20 mg PO DAILY PRN (Reason: edema) Qty: 30 0RF vitamin E 268 mg (400 unit) Capsule 268 mg PO DAILY metoprolol tartrate 25 mg Tablet 25 mg PO BID@0900,2100 Qty: 180 0RF apixaban 5 mg tablet 5 mg PO BID Qty: 180 0RF levothyroxine [Synthroid] 25 mcg tablet 25 mcg PO QAM Lasix 40 mg tablet 40 mg PO DAILY Qty: 5 0RF Discharge Orders: Discharge ED (Routine); Ordered 02/27/23 Ordered By: Remy Melgoza Referrals: Denis Nowak MD [Primary Care Provider] - 1 week Patient Instructions: A-fib (Atrial Fibrillation) (ED), Dyspnea (ED) Activity Restrictions/Additional Instructions: Please continue take all medicine as directed. Please follow-up with your family practice physician within the next 7 to 10 days for further evaluation and treatment. Coding Level of Care Code ED Station Engineer for Victor M Hale
[2023-02-27] MEDS: hyDRALAzine 20 mg/mL INJ 1 mL IVP (04:22)
[2023-02-27 04:27] VITALS: BP 146/97; PULSE 84; RESP 16; O2SAT 96
[2023-02-27 04:29] LABS: INR 1.13 (0.8-1.2)
[2023-02-27 04:42] VITALS: BP 121/80; PULSE 101; RESP 15; O2SAT 96
[2023-02-27 04:49] LABS: Troponin(5th) Baseline 10 ng/L (0-15)
[2023-02-27 05:14] LABS: Alanine Aminotransferase 10 U/L (0-41); Albumin Level 3.6 g/dL (3.5-5.2); Alkaline Phosphatase 69 U/L (40-130); Anion Gap 15.4 (5-19); Aspartate Amino Transferase 13 U/L (0-40); Blood Urea Nitrogen 10 mg/dL (8-23); Calcium 8.4 mg/dL (8.5-10.5); Carbon Dioxide 20 mmol/L (22-29); Chloride 103 mmol/L (98-107); Globulin 2.8 g/dL (1.3-4.6); Glucose 96 mg/dL (65-115); NT Pro B Type Natriuretic Pept 1931 pg/mL (0-450); Osmolality Calculated 279 mOsm/kg (285-295); Potassium 3.4 mmol/L (3.5-5.1); Sodium 135 mmol/L (136-145); Thyroid Stimulating Hormone 4.29 uIU/mL (0.27-4.20); Total Bilirubin 1.4 mg/dL (0.15-1.2); Total Protein 6.4 g/dL (6.6-8.7)
[2023-02-27 05:37] VITALS: BP 130/70; PULSE 98; RESP 14; O2SAT 98
== END 2023-02-27 05:39 | disposition home or self-care (01) ==
PROVIDERS: Emergency Provider Emergency Medicine; PCP Internal Medicine
DX: I48.91 Unspecified atrial fibrillation (principal); R06.00 Dyspnea, unspecified; Z79.82 Long term (current) use of aspirin; E78.5 Hyperlipidemia, unspecified; I25.10 Atherosclerotic heart disease of native coronary artery without angina pectoris; I10 Essential (primary) hypertension
CPT/HCPCS: 71045; 80053; 83880; 84443; 84484; 85025; 85610; 93005; 96374; 99285; J0360

== ENCOUNTER 2023-03-15 04:50 | Emergency (ER) | payer MEDICARE, MEDICAID, SELFPAY ==
[2023-03-15 04:56] VITALS: PULSE 106; RESP 20; TEMP 36.9; O2SAT 95; BMI 30.4
--- NOTE | 2023-03-15 05:03 | ECG_ITS ---
[facility] Test Date: 2023-03-15 Pat Name: David Orozco Department: Room: Gender: Male Help Desk Coordinator: : 1940 Requested By: Wisam Avila Order Number: [id number] Lopez MD: Maximino Berkowitz M.D. Measurements Intervals [place] Rate: 109 P: 0 UT: 0 QRS: 8 QRSD: 87 T: 44 QT: 341 QTc: 461 Interpretive Statements ATRIAL FIBRILLATION WITH RAPID VENTRICULAR RESPONSE MINIMAL ST DEPRESSION [0.025+ mV ST DEPRESSION] Compared to ECG 02/27/2023 04:03:34 No significant changes Electronically Signed On 03-17-2023 10:55:32 ROLL FORMING SUPERVISOR by Maximino Berkowitz M.D. [email or web address]
[2023-03-15 05:13] VITALS: BP 193/146; PULSE 100; RESP 18; O2SAT 95
--- NOTE | 2023-03-15 05:21 | XRR_ITS ---
PROCEDURE INFORMATION: Exam: XR Chest Exam date and time: 03/15/2023 5:31 AM Age: 82 years old Clinical indication: Dyspnea; Additional info: SOB TECHNIQUE: Imaging protocol: Radiologic exam of the chest. Views: 1 view. COMPARISON: CR (CHEST, ) 02/27/2023 4:13 AM FINDINGS: Lungs: Unremarkable. No consolidation. Pleural spaces: Unremarkable. No pleural effusion. No pneumothorax. Heart/Mediastinum: Unremarkable. No cardiomegaly. Bones/joints: Unremarkable. XR/XR chest 1V portable [id number] IMPRESSION: No acute findings.
--- NOTE | 2023-03-15 05:23 | ED_ITS ---
HPI - SOB/Dyspnea 2 General: Chief Complaint: Shortness of Breath/Dyspnea Stated Complaint: sob History of Present Illness: HPI Narrative: 82-year-old gentleman who lives at home. Again, he denies significant medical problems, but does have a history of coronary disease, atrial fibrillation, mitral valve regurgitation. He is on Eliquis and apparently is supposed to be taking furosemide although he states that he is not taking that. He is quite hypertensive on arrival. He is also mildly tachycardic and in atrial fibrillation. He says that he has not taken his metoprolol this morning. He denies fever. Denies chest pain. He says his shortness of breath is improved now after getting up from a lying position and being up and about for a while. He denies significant lower extremity edema. Associated symptoms: Reports palpitations; Deny chest pain or fever(s) Review of Systems 2 Const: Denies: fever(s) ENMT: Denies: throat pain Card: Reports: palpitations; Denies: chest pain or edema Resp: Reports: dyspnea; Denies: productive cough or non-productive cough PFSH ED 2 PFSH: Medical History Left ureteral calculus Renal mass Calculus of kidney with calculus of ureter History of atrial fibrillation Dyslipidemia (high LDL; low HDL) Chronic episodic atrial fibrillation Benign essential HTN Atherosclerotic heart disease of [place] coronary artery without angina pectoris Insomnia History of colon polyps Lumbar disc disease GERD (gastroesophageal reflux disease) Fibromyalgia Surgical History History of cardiac cath History of cholecystectomy History of shoulder surgery History of colonoscopy Family History Brother No problems noted. Father , at age 93 Dementia Parkinson disease Mother , at age 75 No problems noted. Denies family history of Diabetes CAD (coronary artery disease) Clotting disorder Chronic kidney disease (CKD) Suicide Anesthesia complication Bleeding disorder Lung disease Cancer Stroke Social History Smoking and tobacco/nicotine status: never used tobacco/nicotine Alcohol intake: current Alcohol intake frequency: holidays/special occasions only Substance/Drug Use: never Housing: House Marital status: / Current occupational status: retired Physical Exam 2 Const: COMMON NORMALS: no acute distress GENERAL APPEARANCE: cooperative; not ill appearing and not frail appearing HENMT: COMMON NORMALS: normocephalic, atraumatic and Normal external nose present HEAD & SCALP: normocephalic and atraumatic FACE & SINUS: normal facial exam and face symmetric NOSE: Normal external nose present Eye: COMMON NORMALS: Equal, round and reactive pupils present and EOMs intact bilaterally PUPIL: Yes Equal, round and reactive pupils present Neck/C-Spine: GENERAL: Yes trachea midline Chest: CHEST: Yes Symmetrical chest wall rise Resp: COMMON NORMALS: normal respiratory effort, No retractions, No use of accessory muscles and clear to auscultation bilaterally AUSCULTATION: clear to auscultation bilaterally Cardio: RATE: tachycardic RHYTHM: abnormal rhythm irregularly irregular HEART SOUNDS: Murmur heart sound present GI: COMMON NORMALS: Normal to inspection, nondistended, normoactive bowel sounds present Extremity: COMMON NORMALS: no pedal edema Neuro: [place] COMA SCALE: document GCS findings Delmy coma scale eye opening: Spontaneous [place] coma scale verbal response: Orientated Del[place] coma scale motor response: Obey commands [place] coma scale total score: 15 S ENSORY EXAM: Yes extremities (intact) Psych: COMMON NORMALS: speech normal SPEECH: Yes normal speech Skin: COMMON NORMALS: no rashes or lesions noted GENERAL SKIN EXAM: no rashes or lesions noted Course 2 Vital Signs: Vital signs: Vital Signs Temperature 98.4 F 03/15/23 04:56 Pulse Rate 86 03/15/23 06:39 Respiratory Rate 18 03/15/23 06:39 Blood Pressure 173/111 03/15/23 06:39 Pulse Oximetry 94 03/15/23 06:39 Oxygen Delivery Me thod Room Air 03/15/23 05:53 MDM - SOB/Dyspnea Medical Decision Making 82-year-old gentleman with a history of atrial fibrillation, diastolic dysfunction, mitral valve regurgitation, and coronary disease. He presents with shortness of breath. He denies chest pain. He is given IV Lasix, nitroglycerin paste, and metoprolol, as he is mildly tachycardic and significantly hypertensive this morning. Suspect he is noncompliant with medication either knowingly or unknowingly. Improved shortness of breath in a patient with a history of atrial fibrillation, diastolic dysfunction, mitral valve regurgitation. His heart rate is down to 78. His blood pressure is 120 systolic. He has received 60 mg of Lasix and is started to diurese. He will be allowed home. This patient would likely benefit from at least home health to help set up his medication to be taken appropriately. Lab Data 03/15/23 05:11 03/15/23 05:11 Labs/Radiology: Radiology Impressions Chest X-Ray 03/15/23 05:21 IMPRESSION: No acute findings. Laboratory Results WBC 6.81 10^3/uL (3.29-11.43) 03/15/23 05:11 RBC 4.96 10^6/uL (3.85-5.65) 03/15/23 05:11 Hgb 16.80 g/dL (11.27-16.99) 03/15/23 05:11 Hct 48.5 % (37-53) 03/15/23 05:11 MCV 97.8 fl (82-101) 03/15/23 05:11 MCH 33.9 pg (27-33) H 03/15/23 05:11 MCHC 34.6 g/dL (30-55) 03/15/23 05:11 RDW 13.9 % (12.1-15.1) 03/15/23 05:11 Plt Count 213 10^3/cmm (157-399) 03/15/23 05:11 MPV 10.4 fL (7.4-10.4) 03/15/23 05:11 Neut % (Auto) 67.2 % 03/15/23 05:11 Lymph % (Auto) 23.2 % 03/15/23 05:11 [place] % (Auto) 7.9 % 03/15/23 05:11 Eos % (Auto) 1.2 % 03/15/23 05:11 Baso % (Auto) 0.4 % 03/15/23 05:11 Neut # (Auto) 4.57 10^3/uL (1.8-7.7) 03/15/23 05:11 Lymph # (Auto) 1.6 10^3/uL (0.8-4.8) 03/15/23 05:11 [place] # (Auto) 0.5 10^3/uL (0.2-0.9) 03/15/23 05:11 Eos # (Auto) 0.1 10^3/uL (0.0-0.8) 03/15/23 05:11 Baso # (Auto) 0.0 10^3/uL (0.0-0.1) 03/15/23 05:11 Nucleated RBC % (auto) 0 % 03/15/23 05:11 Nucleated RBCs # 0.0 /100WBC 03/15/23 05:11 PT 14.90 SECONDS (12.1-14.9) 03/15/23 05:11 INR 1.13 (0.8-1.2) 03/15/23 05:11 APTT 29.1 SECONDS (23.9-36.7) 03/15/23 05:11 Sodium 131 mmol/L (136-145) L 03/15/23 05:11 Potassium 4.0 mmol/L (3.5-5.1) 03/15/23 05:11 Chloride 97 mmol/L (98-107) L 03/15/23 05:11 Carbon Dioxide 23 mmol/L (22-29) 03/15/23 05:11 Anion Gap 15.0 (5-19) 03/15/23 05:11 BUN 14 mg/dL (8-23) 03/15/23 05:11 Creatinine 1.1 mg/dL (0.7-1.2) 03/15/23 05:11 GFR Calculation Not Reportable 03/15/23 05:11 Glucose 113 mg/dL (65-115) 03/15/23 05:11 Calculated Osmolality 273 mOsm/kg (285-295) L 03/15/23 05:11 Calcium 9.7 mg/dL (8.5-10.5) 03/15/23 05:11 Total Bilirubin 1.6 mg/dL (0.15-1.2) H 03/15/23 05:11 AST 17 U/L (0-40) 03/15/23 05:11 ALT 15 U/L (0-41) 03/15/23 05:11 Alkaline Phosphatase 96 U/L (40-130) 03/15/23 05:11 Troponin T Baseline 12 ng/L (0-15) 03/15/23 05:11 NT-Pro-B Natriuret Pep 2737 pg/mL (0-450) H 03/15/23 05:11 Total Protein 8.0 g/dL (6.6-8.7) 03/15/23 05:11 Albumin 4.1 g/dL (3.5-5.2) 03/15/23 05:11 Globulin 3.9 g/dL (1.3-4.6) 03/15/23 05:11 All radiology interpretation(s) finalized by discharge Discharge Plan Discharge Patient Disposition: Home Clinical Impression: A-fib Qualifiers: Atrial fibrillation type: longstanding persistent Qualified Code(s): I48.11 - Longstanding persistent atrial fibrillation Condition: Stable Prescriptions: No Action ezetimibe [Zetia] 10 mg tablet 10 mg PO QAM Qty: 30 0RF Rx Instructions: patient needs follow up for future refills aspirin 81 mg Tablet,Delayed Release (Dr/Ec) 81 mg PO QAM furosemide [Lasix] 20 mg tablet 20 mg PO DAILY PRN (Reason: edema) Qty: 30 0RF vitamin E 268 mg (400 unit) Capsule 268 mg PO DAILY metoprolol tartrate 25 mg Tablet 25 mg PO BID@0900,2100 Qty: 180 0RF apixaban 5 mg tablet 5 mg PO BID Qty: 180 0RF levothyroxine [Synthroid] 25 mcg tablet 25 mcg PO QAM Lasix 40 mg tablet 40 mg PO DAILY Qty: 5 0RF Discharge Orders: Discharge ED (Routine); Ordered 03/15/23 Ordered By: Wisam Mendez Referrals: Denis Nowak MD [Primary Care Provider] - Patient Instructions: A-fib (Atrial Fibrillation) (ED), Opioid Safety, Pain Management Activity Restrictions/Additional Instructions: Take your medication as prescribed. You may benefit from home nursing services to help you set up your medication. Return for worsening shortness of breath despite treatment, Coding Level of Care Code ED Operations Management Trainee for Victor M Hale
[2023-03-15 05:29] LABS: Basophils % 0.4 %; Eosinophils # 0.1 10^3/uL (0.0-0.8); Eosinophils % 1.2 %; Hematocrit 48.5 % (37-53); Lymphocytes # 1.6 10^3/uL (0.8-4.8); Lymphocytes % 23.2 %; Mean Corpuscular HGB Conc 34.6 g/dL (30-55); Mean Corpuscular Hemoglobin 33.9 pg (27-33); Mean Corpuscular Volume 97.8 fl (82-101); Mean Platelet Volume 10.4 fL (7.4-10.4); Monocytes # 0.5 10^3/uL (0.2-0.9); Monocytes % 7.9 %; Neutrophils # 4.57 10^3/uL (1.8-7.7); Neutrophils % 67.2 %; Nucleated Red Blood Cells % 0 %; Platelet Count 213 10^3/cmm (157-399); Red Blood Count 4.96 10^6/uL (3.85-5.65); Red Cell Distribution Width 13.9 % (12.1-15.1); White Blood Count 6.81 10^3/uL (3.29-11.43)
[2023-03-15 05:39] LABS: INR 1.13 (0.8-1.2); Partial Thromboplastin Time 29.1 SECONDS (23.9-36.7)
[2023-03-15 05:43] LABS: Alanine Aminotransferase 15 U/L (0-41); Albumin Level 4.1 g/dL (3.5-5.2); Alkaline Phosphatase 96 U/L (40-130); Aspartate Amino Transferase 17 U/L (0-40); Blood Urea Nitrogen 14 mg/dL (8-23); Calcium 9.7 mg/dL (8.5-10.5); Carbon Dioxide 23 mmol/L (22-29); Chloride 97 mmol/L (98-107); Creatinine Clr Calc Pharmacy 54.6758; Globulin 3.9 g/dL (1.3-4.6); Glucose 113 mg/dL (65-115); Osmolality Calculated 273 mOsm/kg (285-295); Sodium 131 mmol/L (136-145); Total Bilirubin 1.6 mg/dL (0.15-1.2)
[2023-03-15 05:46] LABS: Troponin(5th) Baseline 12 ng/L (0-15)
[2023-03-15 05:50] VITALS: BP 193/146; PULSE 110
[2023-03-15] MEDS: nitroglycerin 1 gm/inch oint Pkt 1 INCH TOPICAL (05:50)
[2023-03-15] MEDS: metoprolol tartrate 1 mg/1 mL SDV 5 mL 5 MG IVP (05:51)
[2023-03-15 05:53] VITALS: BP 193/146; PULSE 110; RESP 18; O2SAT 93
[2023-03-15] MEDS: FUROsemide 10 mg/mL SDV 10mL 60 MG IVP (05:54)
[2023-03-15 05:57] LABS: NT Pro B Type Natriuretic Pept 2737 pg/mL (0-450)
[2023-03-15 06:39] VITALS: BP 173/111; PULSE 86; RESP 18; O2SAT 94
== END 2023-03-15 06:41 | disposition home or self-care (01) ==
PROVIDERS: Emergency Provider Emergency Medicine; PCP Internal Medicine
DX: I48.11 Longstanding persistent atrial fibrillation (principal); Z79.82 Long term (current) use of aspirin; E78.5 Hyperlipidemia, unspecified; I10 Essential (primary) hypertension; I25.10 Atherosclerotic heart disease of native coronary artery without angina pectoris
CPT/HCPCS: 71045; 80053; 83880; 84484; 85025; 85610; 85730; 93005; 96374; 96375; 99285; J1940; J3490

== ENCOUNTER 2023-03-19 04:31 | Inpatient (IN) | payer MEDICARE, MEDICAID, SELFPAY ==
[2023-03-19] VITALS (16 sets, daily range): BP systolic 136–203; BP diastolic 90–149; PULSE 72–115; RESP 15–25; TEMP 36.6–36.7; O2SAT 92–98; BMI 30.4; BMI 28.0
--- NOTE | 2023-03-19 04:48 | XRR_ITS ---
PROCEDURE INFORMATION: Exam: XR Chest Exam date and time: 03/19/2023 4:58 AM Age: 82 years old Clinical indication: Dyspnea TECHNIQUE: Imaging protocol: Radiologic exam of the chest. Views: 1 view. COMPARISON: CR (CHEST, ) 03/15/2023 5:31 AM FINDINGS: Lungs: There is subsegmental basilar atelectasis. Pleural spaces: Unremarkable. No pleural effusion. No pneumothorax. Heart/Mediastinum: Unremarkable. No cardiomegaly. Bones/joints: Degenerative changes are noted in the bones. Metallic fixation anchors overlie the right humeral head. XR/XR chest 1V portable [id number] IMPRESSION: Basilar atelectasis.
--- NOTE | 2023-03-19 04:54 | ECG_ITS ---
[facility] Test Date: 2023-03-19 Pat Name: David Orozco Department: Room: Gender: Male Department Editor: : 1940 Requested By: Augustine Field Order Number: [id number] Lopez MD: Maximino Berkowitz M.D. Measurements Intervals [place] Rate: 110 P: 0 CT: 0 QRS: 15 QRSD: 88 T: 51 QT: 323 QTc: 437 Interpretive Statements ATRIAL FIBRILLATION WITH RAPID VENTRICULAR RESPONSE POSSIBLE ANTERIOR MYOCARDIAL INFARCTION , PROBABLY OLD [30 ms Q WAVE IN V3/V4, OR R < 0.2 mV IN V4] Compared to ECG 03/15/2023 05:03:51 Myocardial infarct finding now present ST (T wave) deviation no longer present Electronically Signed On 03-19-2023 9:34:32 BIG DATA DEVELOPER by Maximino Berkowitz M.D. [id number]
[2023-03-19 04:58] LABS: Basophils % 0.4 %; Eosinophils # 0.1 10^3/uL (0.0-0.8); Eosinophils % 1.3 %; Hematocrit 48.8 % (37-53); Lymphocytes # 1.7 10^3/uL (0.8-4.8); Lymphocytes % 22.3 %; Mean Corpuscular HGB Conc 34.2 g/dL (30-55); Mean Corpuscular Volume 99.4 fl (82-101); Mean Platelet Volume 10.1 fL (7.4-10.4); Monocytes # 0.7 10^3/uL (0.2-0.9); Monocytes % 8.8 %; Neutrophils # 5.01 10^3/uL (1.8-7.7); Neutrophils % 66.9 %; Nucleated Red Blood Cells % 0 %; Platelet Count 195 10^3/cmm (157-399); Red Blood Count 4.91 10^6/uL (3.85-5.65); Red Cell Distribution Width 13.9 % (12.1-15.1); White Blood Count 7.49 10^3/uL (3.29-11.43)
[2023-03-19] MEDS: metoprolol tartrate 1 mg/1 mL SDV 5 mL 5 MG IVP (05:10)
[2023-03-19 05:15] LABS: Troponin(5th) Baseline 16 ng/L (0-15)
[2023-03-19 05:22] LABS: Alanine Aminotransferase 12 U/L (0-41); Alkaline Phosphatase 87 U/L (40-130); Aspartate Amino Transferase 18 U/L (0-40); Blood Urea Nitrogen 13 mg/dL (8-23); Calcium 9.4 mg/dL (8.5-10.5); Carbon Dioxide 21 mmol/L (22-29); Chloride 106 mmol/L (98-107); Creatinine Clr Calc Pharmacy 50.1195; Globulin 3.2 g/dL (1.3-4.6); Glucose 108 mg/dL (65-115); NT Pro B Type Natriuretic Pept 1697 pg/mL (0-450); Osmolality Calculated 291 mOsm/kg (285-295); Sodium 140 mmol/L (136-145); Total Bilirubin 1.1 mg/dL (0.15-1.2); Total Protein 7.2 g/dL (6.6-8.7)
--- NOTE | 2023-03-19 05:29 | W.ED.SOB ---
Documented by User: Augustine Field MD 03/20/23 03:01 HPI - SOB/Dyspnea General: Chief Complaint: Shortness of Breath/Dyspnea Stated Complaint: SOB Time Seen by Provider: 03/19/23 04:35 History of Present Illness: HPI Narrative: 82-year-old male presents emergency department with complaints of feeling like he is having shortness of breath. He states that he woke up this morning feeling short of breath. He also states he feels like his heart is racing. Patient has a longstanding history of atrial fibrillation and medication noncompliance. Patient states that Dr. Nowak is his primary care provider but has not seen him in over a year. He states he is unsure of which blood pressure medications he takes. Patient was seen here in the emergency department on 03/15/2023 and was treated and discharged home with recommended follow-up with primary care provider. Associated symptoms: Reports palpitations Review of Systems General: Reports: 10 or more systems reviewed and unremarkable except in HPI and below Card: Reports: palpitations and irregular heart rhythm Resp: Reports: dyspnea PFSH ED PFSH: Medical History Left ureteral calculus Renal mass Calculus of kidney with calculus of ureter History of atrial fibrillation Dyslipidemia (high LDL; low HDL) Chronic episodic atrial fibrillation Benign essential HTN Atherosclerotic heart disease of [place] coronary artery without angina pectoris Insomnia History of colon polyps Lumbar disc disease GERD (gastroesophageal reflux disease) Fibromyalgia Surgical History History of cardiac cath History of cholecystectomy History of shoulder surgery History of colonoscopy Family History Brother No problems noted. Father , at age 93 Dementia Parkinson disease Mother , at age 75 No problems noted. Denies family history of Diabetes CAD (coronary artery disease) Clotting disorder Chronic kidney disease (CKD) Suicide Anesthesia complication Bleeding disorder Lung disease Cancer Stroke Social History Smoking and tobacco/nicotine status: never used tobacco/nicotine Alcohol intake: current Alcohol intake frequency: holidays/special occasions only Substance/Drug Use: never Housing: House Marital status: / Current occupational status: retired Physical Exam Narrative: EXAM NARRATIVE: Constitutional: the patient appears well nourished and with normal development. Vital signs reviewed as documented. HENMT: Normocephalic, atraumatic. Extermal ears with normal appearance without drainage. Nose without drainage, normal appearance. Mucus membranes moist. Neck is supple, No jugular venous distension, trachea is midline, no appreciable carotid bruits. No lymphadenopathy. No meningeal signs. Flexion, extension and lateral rotation is without pain. Eyes: Pupils are equal, round, reactive to light and accommodation. No scleral icterus. Extra-ocular movement are intact. Thorax is symmetrical and with equal rise and fall with respirations. Resp: Lungs are clear to auscultation. No wheezes, rales, crackles or ronchi at present. Cardio: Irregularly irregular rhythm with a rapid ventricular response consistent with atrial fibrillation. Positive S1, S2. No rubs or gallops. 3/6 systolic murmur noted. GI: Abdominal exam reveals normal bowel sounds to all quadrants. No organomegaly. No obvious palpable masses noted. No hepatomegally appreciated. Soft, nontender to palpation. Extremity: Extremities are non-edematous and both femoral and pedal pulses are 2+ and equal bilaterally. Moves all extremities well, sensation in all extremities. Neuro: Alert and oriented x4, person, place, time and situation. Cranial nerves II through XII are grossly intact, there is no focal neurological deficits that I can appreciate at present. Motor strength in the upper and lower extremities are equal and bilateral 5/5. Psych: Cooperative, calm, normal thought process, appropriate judgment. Skin: No lesions, rashes. No gross abnormalities noted. Back: Symmetrical, no obvious deformity, No CVA tenderness Course Vital Signs: Vital signs: Vital Signs Temperature 98.1 F 03/19/23 23:46 Pulse Rate 72 03/19/23 23:46 Respiratory Rate 18 03/19/23 23:46 Blood Pressure 141/91 03/19/23 23:46 Pulse Oximetry 98 03/19/23 23:46 Oxygen Delivery Me thod Room Air 03/19/23 23:46 Oxygen Flow Rate 6 03/19/23 14:58 MDM - SOB/Dyspnea Medical Decision Making Physical exam completed and documented, I will obtain a CBC and CMP as well as a chest x-ray and a B-type natriuretic peptide to evaluate the patient's fluid volume status. I will provide IV beta-antoinette as well as Lasix diuretic to control his heart rate and blood pressure. Lab Data I reviewed the patient's lab results. 03/19/23 04:46 03/19/23 04:46 Labs/Radiology: Radiology Impressions Chest X-Ray 03/19/23 04:48 IMPRESSION: Basilar atelectasis. Laboratory Results WBC 7.49 10^3/uL (3.29-11.43) 03/19/23 04:46 RBC 4.91 10^6/uL (3.85-5.65) 03/19/23 04:46 Hgb 16.70 g/dL (11.27-16.99) 03/19/23 04:46 Hct 48.8 % (37-53) 03/19/23 04:46 MCV 99.4 fl (82-101) 03/19/23 04:46 MCH 34.0 pg (27-33) H 03/19/23 04:46 MCHC 34.2 g/dL (30-55) 03/19/23 04:46 RDW 13.9 % (12.1-15.1) 03/19/23 04:46 Plt Count 195 10^3/cmm (157-399) 03/19/23 04:46 MPV 10.1 fL (7.4-10.4) 03/19/23 04:46 Neut % (Auto) 66.9 % 03/19/23 04:46 Lymph % (Auto) 22.3 % 03/19/23 04:46 [place] % (Auto) 8.8 % 03/19/23 04:46 Eos % (Auto) 1.3 % 03/19/23 04:46 Baso % (Auto) 0.4 % 03/19/23 04:46 Neut # (Auto) 5.01 10^3/uL (1.8-7.7) 03/19/23 04:46 Lymph # (Auto) 1.7 10^3/uL (0.8-4.8) 03/19/23 04:46 [place] # (Auto) 0.7 10^3/uL (0.2-0.9) 03/19/23 04:46 Eos # (Auto) 0.1 10^3/uL (0.0-0.8) 03/19/23 04:46 Baso # (Auto) 0.0 10^3/uL (0.0-0.1) 03/19/23 04:46 Nucleated RBC % (auto) 0 % 03/19/23 04:46 Nucleated RBCs # 0.0 /100WBC 03/19/23 04:46 Sodium 140 mmol/L (136-145) 03/19/23 04:46 Potassium 4.0 mmol/L (3.5-5.1) 03/19/23 04:46 Chloride 106 mmol/L (98-107) 03/19/23 04:46 Carbon Dioxide 21 mmol/L (22-29) L 03/19/23 04:46 Anion Gap 17.0 (5-19) 03/19/23 04:46 BUN 13 mg/dL (8-23) 03/19/23 04:46 Creatinine 1.2 mg/dL (0.7-1.2) 03/19/23 04:46 GFR Calculation Not Reportable 03/19/23 04:46 Glucose 108 mg/dL (65-115) 03/19/23 04:46 Calculated Osmolality 291 mOsm/kg (285-295) 03/19/23 04:46 Calcium 9.4 mg/dL (8.5-10.5) 03/19/23 04:46 Total Bilirubin 1.1 mg/dL (0.15-1.2) 03/19/23 04:46 AST 18 U/L (0-40) 03/19/23 04:46 ALT 12 U/L (0-41) 03/19/23 04:46 Alkaline Phosphatase 87 U/L (40-130) 03/19/23 04:46 Troponin T Baseline 16 ng/L (0-15) H 03/19/23 04:46 Troponin T 120 Minute 15.17 ng/L (0-15) H 03/19/23 06:58 Delta Troponin T -0.83 ABS# (0-10) L 03/19/23 06:58 NT-Pro-B Natriuret Pep 1697 pg/mL (0-450) H 03/19/23 04:46 Total Protein 7.2 g/dL (6.6-8.7) 03/19/23 04:46 Albumin 4.0 g/dL (3.5-5.2) 03/19/23 04:46 Globulin 3.2 g/dL (1.3-4.6) 03/19/23 04:46 EKG Data EKG 1: Interpretation: Twelve-lead EKG obtained at 1442 and reviewed at 1442 demonstrates atrial fibrillation with rapid ventricular response with a ventricular rate of 110 bpm, QRS duration 88 QT 323 QTc 388 at present there is no significant ST elevation. There is concern for ST depression in leads II, III and aVF. Discharge Plan Discharge Patient Disposition: Admitted As Inpatient Admit Provider: Jimbo Torres Clinical Impression: Atrial fibrillation with RVR, History of atrial fibrillation, Congestive heart failure, Angina at rest Condition: Stable Sign Out Sign Out Data: Patient Sign Out occurred on 03/19/23 at 06:49. Patient's care was discussed, and care was transferred from Augustine Field MD to Glynn David DO. Coding Level of Care Code ED Spiral Winding Machine Helper for Chg Fwd Documented by User: Glynn David DO 03/19/23 09:25 HPI - SOB/Dyspnea General: Chief Complaint: Shortness of Breath/Dyspnea Stated Complaint: SOB Time Seen by Provider: 03/19/23 04:35 PFSH ED PFSH: Medical History Left ureteral calculus Renal mass Calculus of kidney with calculus of ureter History of atrial fibrillation Dyslipidemia (high LDL; low HDL) Chronic episodic atrial fibrillation Benign essential HTN Atherosclerotic heart disease of [place] coronary artery without angina pectoris Insomnia History of colon polyps Lumbar disc disease GERD (gastroesophageal reflux disease) Fibromyalgia Surgical History History of cardiac cath History of cholecystectomy History of shoulder surgery History of colonoscopy Family History Brother No problems noted. Father , at age 93 Dementia Parkinson disease Mother , at age 75 No problems noted. Denies family history of Diabetes CAD (coronary artery disease) Clotting disorder Chronic kidney disease (CKD) Suicide Anesthesia complication Bleeding disorder Lung disease Cancer Stroke Social History Smoking and tobacco/nicotine status: never used tobacco/nicotine Alcohol intake: current Alcohol intake frequency: holidays/special occasions only Substance/Drug Use: never Housing: House Marital status: / Current occupational status: retired Course Vital Signs: Vital signs: Vital Signs Temperature 98.1 F 03/19/23 23:46 Pulse Rate 72 03/19/23 23:46 Respiratory Rate 18 03/19/23 23:46 Blood Pressure 141/91 03/19/23 23:46 Pulse Oximetry 98 03/19/23 23:46 Oxygen Delivery Me thod Room Air 03/19/23 23:46 Oxygen Flow Rate 6 03/19/23 14:58 MDM - SOB/Dyspnea Medical Decision Making Physical exam completed and documented, I will obtain a CBC and CMP as well as a chest x-ray and a B-type natriuretic peptide to evaluate the patient's fluid volume status. I will provide IV beta-antoinette as well as Lasix diuretic to control his heart rate and blood pressure. 82-year-old male presents with recurrent episodes of PND chest discomfort atrial fibrillation accelerated hypertension has been in several times has had 4 episodes in the last 2 weeks with PND associated with chest discomfort. He arrived here with a rapid rate with EKG changes he was initially heparinized when he reviewed the chart he is on apixaban -will stop the heparin drip. After diuresis and improvement of his right his chest discomfort and EKG changes have resolved. His blood pressure still elevated will give another dose of metoprolol as well as topical nitro. Discussed with Dr. Cordoba will admit for further evaluation and medical management of heart failure hypertension atrial fibrillation and further evaluation and EKG changes present on admission. No acute EKG changes this time no chest pain. Medical Records I reviewed the patient's medical records. Lab Data I reviewed the patient's lab results. 03/19/23 04:46 03/19/23 04:46 Labs/Radiology: Radiology Impressions Chest X-Ray 03/19/23 04:48 IMPRESSION: Basilar atelectasis. Laboratory Results WBC 7.49 10^3/uL (3.29-11.43) 03/19/23 04:46 RBC 4.91 10^6/uL (3.85-5.65) 03/19/23 04:46 Hgb 16.70 g/dL (11.27-16.99) 03/19/23 04:46 Hct 48.8 % (37-53) 03/19/23 04:46 MCV 99.4 fl (82-101) 03/19/23 04:46 MCH 34.0 pg (27-33) H 03/19/23 04:46 MCHC 34.2 g/dL (30-55) 03/19/23 04:46 RDW 13.9 % (12.1-15.1) 03/19/23 04:46 Plt Count 195 10^3/cmm (157-399) 03/19/23 04:46 MPV 10.1 fL (7.4-10.4) 03/19/23 04:46 Neut % (Auto) 66.9 % 03/19/23 04:46 Lymph % (Auto) 22.3 % 03/19/23 04:46 [place] % (Auto) 8.8 % 03/19/23 04:46 Eos % (Auto) 1.3 % 03/19/23 04:46 Baso % (Auto) 0.4 % 03/19/23 04:46 Neut # (Auto) 5.01 10^3/uL (1.8-7.7) 03/19/23 04:46 Lymph # (Auto) 1.7 10^3/uL (0.8-4.8) 03/19/23 04:46 [place] # (Auto) 0.7 10^3/uL (0.2-0.9) 03/19/23 04:46 Eos # (Auto) 0.1 10^3/uL (0.0-0.8) 03/19/23 04:46 Baso # (Auto) 0.0 10^3/uL (0.0-0.1) 03/19/23 04:46 Nucleated RBC % (auto) 0 % 03/19/23 04:46 Nucleated RBCs # 0.0 /100WBC 03/19/23 04:46 Sodium 140 mmol/L (136-145) 03/19/23 04:46 Potassium 4.0 mmol/L (3.5-5.1) 03/19/23 04:46 Chloride 106 mmol/L (98-107) 03/19/23 04:46 Carbon Dioxide 21 mmol/L (22-29) L 03/19/23 04:46 Anion Gap 17.0 (5-19) 03/19/23 04:46 BUN 13 mg/dL (8-23) 03/19/23 04:46 Creatinine 1.2 mg/dL (0.7-1.2) 03/19/23 04:46 GFR Calculation Not Reportable 03/19/23 04:46 Glucose 108 mg/dL (65-115) 03/19/23 04:46 Calculated Osmolality 291 mOsm/kg (285-295) 03/19/23 04:46 Calcium 9.4 mg/dL (8.5-10.5) 03/19/23 04:46 Total Bilirubin 1.1 mg/dL (0.15-1.2) 03/19/23 04:46 AST 18 U/L (0-40) 03/19/23 04:46 ALT 12 U/L (0-41) 03/19/23 04:46 Alkaline Phosphatase 87 U/L (40-130) 03/19/23 04:46 Troponin T Baseline 16 ng/L (0-15) H 03/19/23 04:46 Troponin T 120 Minute 15.17 ng/L (0-15) H 03/19/23 06:58 Delta Troponin T -0.83 ABS# (0-10) L 03/19/23 06:58 NT-Pro-B Natriuret Pep 1697 pg/mL (0-450) H 03/19/23 04:46 Total Protein 7.2 g/dL (6.6-8.7) 03/19/23 04:46 Albumin 4.0 g/dL (3.5-5.2) 03/19/23 04:46 Globulin 3.2 g/dL (1.3-4.6) 03/19/23 04:46 All radiology interpretation(s) finalized by discharge Discharge Plan Discharge Patient Disposition: Admitted As Inpatient Admit Provider: Jimbo Torres Clinical Impression: Atrial fibrillation with RVR, History of atrial fibrillation, Congestive heart failure, Angina at rest Condition: Stable Sign Out Sign Out Data: Patient Sign Out occurred on 03/19/23 at 06:49. Patient's care was discussed, and care was transferred from Augustine Field MD to Glynn David DO. Coding Level of Care Code ED Spiral Winding Machine Helper for Victor M Hale
[2023-03-19] MEDS: FUROsemide 10 mg/mL SDV 4mL 40 MG IVP (05:47)
[2023-03-19] MEDS: heparin 5,000 unit/mL INJ 1 mL 4000 UNIT IVP (06:13)
[2023-03-19] MEDS: heparin drip 25,000 UNIT/500 ML PREMIX 25 UNIT IV (06:14)
--- NOTE | 2023-03-19 06:54 | ECG_ITS ---
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 Measurements Intervals [place] Rate: 97 P: 0 UT: 0 QRS: 18 QRSD: 88 T: 46 QT: 360 QTc: 458 Interpretive Statements ATRIAL FIBRILLATION POSSIBLE RIGHT VENTRICULAR CONDUCTION DELAY [RSR (QR) IN V1/V2] POSSIBLE ANTERIOR MYOCARDIAL INFARCTION , PROBABLY OLD [30 ms Q WAVE IN V3/V4, OR R < 0.2 mV IN V4] Compared to ECG 03/19/2023 04:42:08 No significant changes Electronically Signed On 03-19-2023 19:00:38 AGILE JAVA DEVELOPER by Maximino Berkowitz M.D. [email or web address]
[2023-03-19 07:46] LABS: Troponin 5 2HR 15.17 ng/L (0-15)
[2023-03-19 07:51] LABS: Troponin 5 2HR Delta -0.83 ABS# (0-10)
[2023-03-19] MEDS: metoprolol tartrate 50 mg Tablet PO ×2 (09:15→22:11)
[2023-03-19] MEDS: nitroglycerin 1 gm/inch oint Pkt 1 INCH TOPICAL (09:15)
--- NOTE | 2023-03-19 09:27 | PC.NURSE ---
HEPARIN PAUSED PER IFRAH DUE TO PT RX ELIQUIS.
--- NOTE | 2023-03-19 10:54 | ECG_ITS ---
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 Measurements Intervals [place] Rate: 90 P: 0 DE: 0 QRS: -3 QRSD: 90 T: 35 QT: 388 QTc: 476 Interpretive Statements ATRIAL FIBRILLATION POSSIBLE ANTERIOR MYOCARDIAL INFARCTION , PROBABLY OLD [30 ms Q WAVE IN V3/V4, OR R < 0.2 mV IN V4] Compared to ECG 03/19/2023 06:08:52 No significant changes Electronically Signed On 03-19-2023 19:00:15 SENIOR RISK MANAGER by Maximino Berkowitz M.D. [id number]
[2023-03-19 11:47] LABS: Troponin 5 6HR 14.76 ng/L (0-15)
[2023-03-19 11:48] LABS: Troponin 5 6HR Delta -1.24 ng/L (0-12)
--- NOTE | 2023-03-19 12:15 | PM.HP ---
Providers/Chief Complaint Admitting Physician: Jimbo Torres MD Primary Care Provider: Denis Nowak MD Chief Complaint: SOB History of Present Illness David Orozco is a 82 year old male presenting to the emergency department with complaints of significant shortness of breath. His last episode occurred last night, and lasted for approximately an hour before it went away. He states he has had 2 other episodes. He denies any chest discomfort, or exertional symptoms during the day. He denies any history of sleep apnea, and does not believe he snores. He has not been ill recently with any fever or cough. He is not for sure what his blood pressure has been running. He does have a history of mild to moderate mitral regurgitation and hypertension. Review of Systems General: Reports: 10 or more systems reviewed and unremarkable except in HPI and below Card: Reports: orthopnea; Denies: chest pain Resp: Reports: dyspnea GI: Denies: abdominal pain, nausea, vomiting, hematochezia or melena Medications/Allergies Home Medications Medication Instructions Recorded Confirmed Last Taken Type aspirin 81 mg tablet,delayed 81 mg PO QAM 05/26/20 03/19/23 03/18/23 History release apixaban 5 mg tablet 5 mg PO BID #180 tabs 02/09/23 03/19/23 03/18/23 Rx metoprolol tartrate 25 mg tablet 25 mg PO BID@0900,2100 #180 tabs 02/09/23 03/19/23 03/18/23 Rx vitamin E 268 mg (400 unit) capsule 268 mg PO DAILY 02/09/23 03/19/23 03/18/23 History furosemide 40 mg tablet (Lasix) 40 mg PO DAILY #5 tabs 02/18/23 03/19/23 03/18/23 Rx Allergies Allergy/AdvReac Type Severity Reaction Status Date / Time No Known Allergies Allergy Verified 03/19/23 04:42 PFSH Acute PFSH: Medical History Left ureteral calculus Renal mass Calculus of kidney with calculus of ureter History of atrial fibrillation Dyslipidemia (high LDL; low HDL) Chronic episodic atrial fibrillation Benign essential HTN Atherosclerotic heart disease of [place] coronary artery without angina pectoris Insomnia History of colon polyps Lumbar disc disease GERD (gastroesophageal reflux disease) Fibromyalgia Surgical History History of cardiac cath History of cholecystectomy History of shoulder surgery History of colonoscopy Family History Brother No problems noted. Father , at age 93 Dementia Parkinson disease Mother , at age 75 No problems noted. Denies family history of Diabetes CAD (coronary artery disease) Clotting disorder Chronic kidney disease (CKD) Suicide Anesthesia complication Bleeding disorder Lung disease Cancer Stroke Social History Smoking and tobacco/nicotine status: never used tobacco/nicotine Alcohol intake: current Alcohol intake frequency: holidays/special occasions only Substance/Drug Use: never Housing: House Marital status: / Current occupational status: retired Vitals/I&O/Wt Last Vital Signs Temp 97.9 F 03/19/23 04:35 Pulse 92 03/19/23 10:20 Resp 16 03/19/23 08:22 BP 145/114 03/19/23 10:20 Pulse Ox 96 03/19/23 10:20 O2 Del Method Room Air 03/19/23 10:20 Weight last 48 hrs Weight 90.718 kg Physical Exam Narrative: General exam is a white male, currently in no distress. Blood pressure is noted to be significantly elevated. HEENT: Atraumatic normocephalic. Pupils equally round. Oropharynx clear. Neck is supple no lymphadenopathy thyromegaly Cardiovascular irregular, irregular rhythm with a 3/6 systolic murmur heard best in his mitral area Lungs are clear no wheezing or crackles Abdomen is soft with positive bowel sounds. No obvious organomegaly exam was deferred Extremities show trace edema bilaterally, no cyanosis or clubbing Skin no rash Neuro no obvious focal deficits Data 03/19/23 04:46 03/19/23 04:46 Other Labs: LFTs normal normal Troponin 16 with repeat of 15 BNP elevated at 1697 Chest x-ray per my read demonstrates some basilar infiltrates/atelectasis versus edema EKG per my read demonstrates atrial fibrillation, rate around 100, normal axis, no significant ST or T wave changes. Initial EKG rate was around 110. Echo 09/29 demonstrated EF 65%, grade 2 diastolic dysfunction, mild to moderate mitral regurg A&P Assessment and plan (1) Congestive heart failure: Consistent with acute diastolic heart failure Lasix given in the emergency department Continue beta-antoinette Add ARB. Note that he is markedly hypertensive as well. He will need good blood pressure control considering his mitral regurgitation Increase oral diuretic Observation Cardiology consultation. The emergency department physician had already contacted cardiology regarding this evaluation. Check TSH (2) Atrial fibrillation with RVR: Patient was in atrial fibrillation with rapid ventricular rate on arrival Increase his metoprolol to 50 mg twice daily Discontinue heparin drip. Change to Lovenox. Holding Eliquis in case procedure might need to be done (3) Atherosclerotic heart disease of [place] coronary artery without angina pectoris: Apparently had a negative nuclear stress test in 2020 He believes he has had an angiogram greater than 5 years before that, I am not for sure the results at this time. Qualifiers: [place] vs. transplanted heart: [place] heart Qualified Code(s): I25.10 - Atherosclerotic heart disease of [place] coronary artery without angina pectoris Plan Hypertensive urgency. Increase metoprolol, addition of losartan. Multiple other medical problems as outlined in past medical history Full code Lovenox will suffice for DVT prophylaxis Attestations Medical Necessity Statement*: Will need less than 2 midnight stay for evaluation acute heart failure with need for close follow-up Diagnoses Congestive heart failure I50.9 Atrial fibrillation with RVR I48.91 Atherosclerosis of [place] coronary artery of [place] heart without angina pectoris I25.10 [place] vs. transplanted heart: [place] heart Time Spent (min) 56
--- NOTE | 2023-03-19 12:31 | ECG_ITS ---
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 Interpretive Statements NAME OF STUDY: LEXISCAN SESTAMIBI STRESS TEST INDICATION: Chest Pain PROCEDURE: At the baseline, the EKG revealed atrial fibrillation with a controlled ventricular response rate of 87 bpm. Poor R wave progression.. The baseline heart was 95 bpm with a blood pressue of 131/98 mm of Hg Lexiscan was infused over a period of 20 seconds. A total of 0.4 milligrams of Lexiscan was infused. The stress phase was continued for a total of 5 minutes. Heart rate at the end of the stress phase was 115 bpm with a blood pressure 137/80 mm of Hg. The EKG at the peak infusion revealed no significant changes. Sestamibi was injected 20 seconds after the Lexiscan infusion. Heart rate at the end of the recovery phase was 99 bpm with a blood pressure of 148/87 mm of Hg. CONCLUSION: 1. No significant EKG changes with the LexiScan infusion 2. No LexiScan induced chest pain or cardiac arrhythmia 3. Normal blood pressure and heart rate response 4. Sestamibi/sestamibi perfusion scan pending; see separate report. Electronically Signed On 03-21-2023 18:48:14 CABLE CUTTER AND SWAGER by Kavon Cordoba M.D. [id number]
[2023-03-19 13:02] LABS: Thyroid Stimulating Hormone 3.23 uIU/mL (0.27-4.20)
[2023-03-19] MEDS: losartan 50 mg Tablet PO (13:07)
--- NOTE | 2023-03-19 13:08 | P.CONIM_ITS ---
Providers/Reason For Consult 2 Consulting Physician/Specialty*: MERLINE Cordoba MD/cardiology Reason for Consult*: Patient with chest pain, atrial fibrillation Requesting Physician: Dr. Jimbo Torres Attending Physician: Jimbo Torres MD Primary Care Provider: Denis Nowak MD History of Present Illness History of Present Illness David Orozco is a 82 year old male with a history of mild coronary disease, high blood pressure, dyslipidemia, recurrent diastolic heart failure, is presenting with episodes of shortness of breath that wakes him up from sleep around the server administrator hours. This is the fourth the ER visit for this patient within the last 1 month with a similar complaints. He gets severely short of breath around midnight/server administrator hours. The shortness of breath persist for couple of hours. During all these spells, he was found to have elevated blood pressure, systolic in the 1 50-1 90 range and the diastolic from 102 to 116 millimeters of mercury. Also was found to be in atrial fibrillation with a rapid rate. He has no associated chest pain, palpitation, dizziness or syncopal episodes. No fever or chills. No cough. No other associated symptoms. Has been compliant with medications. Patient has no previous history for any obstructive sleep apnea. He has a history of mild coronary artery disease by angiogram in 2002. Since then, he had multiple Myocardial perfusion imaging-showing no evidence of ischemia. History of hypertension and diastolic heart failure as mentioned above. Chronic atrial fibrillation, he is on oral anticoagulation. Has a history of dyslipidemia, hypothyroidism and GERD. I have not seen him in the office for the last couple of years. He has been on oral anticoagulation. Has not had any bleeding complications. He has a history of bradycardia, possibly medication induced Last night around 130 or so, he woke up with the shortness of breath. No associated chest pain or palpitations. No fever or chills. No significant cough. Review of Systems 2 Narrative: CONSTITUTIONAL: No fever or chills. EYES: No blurring of vision or other visual disturbances lately. ENT: No hoarseness of voice, auditory disturbances or sore throat. CARDIOVASCULAR: As mentioned above. RESPIRATORY: No significant cough. Intermittent episodes of shortness of breath as mentioned above GASTROINTESTINAL: No hematemesis or melena. GENITOURINARY: No dysuria or hematuria. INTEGUMENTARY: No skin rashes or history of skin cancer. NEURO: No transient ischemic attacks or amaurosis. PSYCHIATRIC: No history of psychosis or major depression. HEMATOLOGIC: No bleeding disorders or significant anemia. ENDOCRINE: History of hypothyroidism MUSCULOSKELETAL: No recent joint pain or swelling. ALLERGY/IMMUNOLOGY: As mentioned above. Medications/Allergies Home Medications Medication Instructions Recorded Confirmed Last Taken Type aspirin 81 mg tablet,delayed 81 mg PO QAM 05/26/20 03/19/23 03/18/23 History release apixaban 5 mg tablet 5 mg PO BID #180 tabs 02/09/23 03/19/23 03/18/23 Rx metoprolol tartrate 25 mg tablet 25 mg PO BID@0900,2100 #180 tabs 02/09/23 03/19/23 03/18/23 Rx vitamin E 268 mg (400 unit) capsule 268 mg PO DAILY 02/09/23 03/19/23 03/18/23 History furosemide 40 mg tablet (Lasix) 40 mg PO DAILY #5 tabs 02/18/23 03/19/23 03/18/23 Rx Allergies Allergy/AdvReac Type Severity Reaction Status Date / Time No Known Allergies Allergy Verified 03/19/23 04:42 PFSH Acute 2 PFSH: Medical History Left ureteral calculus Renal mass Calculus of kidney with calculus of ureter History of atrial fibrillation Dyslipidemia (high LDL; low HDL) Chronic episodic atrial fibrillation Benign essential HTN Atherosclerotic heart disease of [place] coronary artery without angina pectoris Insomnia History of colon polyps Lumbar disc disease GERD (gastroesophageal reflux disease) Fibromyalgia Surgical History History of cardiac cath History of cholecystectomy History of shoulder surgery History of colonoscopy Family History Brother No problems noted. Father , at age 93 Dementia Parkinson disease Mother , at age 75 No problems noted. Denies family history of Diabetes CAD (coronary artery disease) Clotting disorder Chronic kidney disease (CKD) Suicide Anesthesia complication Bleeding disorder Lung disease Cancer Stroke Social History Smoking and tobacco/nicotine status: never used tobacco/nicotine Alcohol intake: current Alcohol intake frequency: holidays/special occasions only Substance/Drug Use: never Housing: House Marital status: / Current occupational status: retired Vitals/I&O/Wt Last Vital Signs Temp 97.9 F 03/19/23 04:35 Pulse 92 03/19/23 10:20 Resp 16 03/19/23 08:22 BP 145/114 03/19/23 10:20 Pulse Ox 96 03/19/23 10:20 O2 Del Method Room Air 03/19/23 10:20 Weight last 48 hrs Weight 200 lb Physical Exam 2 Narrative: GENERAL: The patient is alert and oriented times three. Not in any acute distress. HEENT: No significant pallor, icterus or lymphadenopathy.Oral cavity: There are no mucous membrane lesions. NECK: Trachea appears to be central. No masses noted. No JVD or thyromegaly appreciated. RESPIRATORY: Chest is symmetrical. No intercostals muscle retraction or any accessory muscle activation. There is no chest wall tenderness. Breath sounds are heard bilaterally. No rales or rhonchi heard. No evidence of any consolidation. BREASTS: Deferred. HEART: The heart sounds are normal. No S3 or S4. Short systolic murmur in the left sternal border. No diastolic murmurs. No pericardial rub ABDOMEN: No vessel pulsations or distention. No tenderness. No organomegaly appreciated. Bowel sounds are normally heard. : Deferred. RECTAL: Deferred. LYMPHATIC: No lymphadenopathy noted in the neck. EXTREMITIES: No edema or cyanosis. No clubbing. MUSCULOSKELETAL: No acute joint deformities or swelling SKIN: There are no significant rashes or ecchymosis NEUROPSYCHIATRIC: The patient is alert and oriented x3. Appears to be in a good mood. No tremors or rigidity noted. Data 03/20/23 03:17 03/20/23 03:17 Other Labs: Laboratory Last Values WBC 7.49 10^3/uL (3.29-11.43) 03/19/23 04:46 RBC 4.91 10^6/uL (3.85-5.65) 03/19/23 04:46 Hgb 16.70 g/dL (11.27-16.99) 03/19/23 04:46 Hct 48.8 % (37-53) 03/19/23 04:46 MCV 99.4 fl (82-101) 03/19/23 04:46 MCH 34.0 pg (27-33) H 03/19/23 04:46 MCHC 34.2 g/dL (30-55) 03/19/23 04:46 RDW 13.9 % (12.1-15.1) 03/19/23 04:46 Plt Count 195 10^3/cmm (157-399) 03/19/23 04:46 MPV 10.1 fL (7.4-10.4) 03/19/23 04:46 Neut % (Auto) 66.9 % 03/19/23 04:46 Lymph % (Auto) 22.3 % 03/19/23 04:46 [place] % (Auto) 8.8 % 03/19/23 04:46 Eos % (Auto) 1.3 % 03/19/23 04:46 Baso % (Auto) 0.4 % 03/19/23 04:46 Neut # (Auto) 5.01 10^3/uL (1.8-7.7) 03/19/23 04:46 Lymph # (Auto) 1.7 10^3/uL (0.8-4.8) 03/19/23 04:46 [place] # (Auto) 0.7 10^3/uL (0.2-0.9) 03/19/23 04:46 Eos # (Auto) 0.1 10^3/uL (0.0-0.8) 03/19/23 04:46 Baso # (Auto) 0.0 10^3/uL (0.0-0.1) 03/19/23 04:46 Nucleated RBC % (auto) 0 % 03/19/23 04:46 Nucleated RBCs # 0.0 /100WBC 03/19/23 04:46 Sodium 140 mmol/L (136-145) 03/19/23 04:46 Potassium 4.0 mmol/L (3.5-5.1) 03/19/23 04:46 Chloride 106 mmol/L (98-107) 03/19/23 04:46 Carbon Dioxide 21 mmol/L (22-29) L 03/19/23 04:46 Anion Gap 17.0 (5-19) 03/19/23 04:46 BUN 13 mg/dL (8-23) 03/19/23 04:46 Creatinine 1.2 mg/dL (0.7-1.2) 03/19/23 04:46 GFR Calculation Not Reportable 03/19/23 04:46 Glucose 108 mg/dL (65-115) 03/19/23 04:46 Calculated Osmolality 291 mOsm/kg (285-295) 03/19/23 04:46 Calcium 9.4 mg/dL (8.5-10.5) 03/19/23 04:46 Total Bilirubin 1.1 mg/dL (0.15-1.2) 03/19/23 04:46 AST 18 U/L (0-40) 03/19/23 04:46 ALT 12 U/L (0-41) 03/19/23 04:46 Alkaline Phosphatase 87 U/L (40-130) 03/19/23 04:46 Troponin T Baseline 16 ng/L (0-15) H 03/19/23 04:46 Troponin T 120 Minute 15.17 ng/L (0-15) H 03/19/23 06:58 Delta Troponin T -0.83 ABS# (0-10) L 03/19/23 06:58 Troponin T Hi Sens 6Hr 14.76 ng/L (0-15) 03/19/23 11:05 Troponin T Hi Sens 6Hr Delta -1.24 ng/L (0-12) L 03/19/23 11:05 NT-Pro-B Natriuret Pep 1697 pg/mL (0-450) H 03/19/23 04:46 Total Protein 7.2 g/dL (6.6-8.7) 03/19/23 04:46 Albumin 4.0 g/dL (3.5-5.2) 03/19/23 04:46 Globulin 3.2 g/dL (1.3-4.6) 03/19/23 04:46 TSH 3.23 uIU/mL (0.27-4.20) 03/19/23 11:05 EKG 1: My Interpretation: Atrial fibrillation with rapid ventricular rate. No acute ST-T changes. Other data: Echocardiogram done on 09/11/2022 revealed 1. Normal left ventricular size, systolic function and wall thickness, with no regional wall motion abnormalities. Left ventricular ejection fraction is estimated at 65-70 %. Grade II diastolic dysfunction, moderately elevated filling pressures. 2. Mild-moderate eccentric mitral valve regurgitation. 3. When compared to study dated 07/21/2020, mitral regurgitation may be somewhat worse. A&P Assessment and plan (1) Acute on chronic diastolic (congestive) heart failure: The patient is recurrent episodes of shortness of breath, most likely related to acute on chronic diastolic heart failure. Uncontrolled blood pressure, atrial fibrillation, left ventricular dysfunction, possible sleep apnea etc. are contributing factors. The patient will be carefully treated with diuretics. (2) Atherosclerotic heart disease of [place] coronary artery without angina pectoris: Patient had only mild coronary disease by angiogram in 2002. Since then had multiple perfusion scans. They are all low probability for coronary ischemia. At this time, the patient may continue on the current medications. Qualifiers: [place] vs. transplanted heart: [place] heart Qualified Code(s): I25.10 - Atherosclerotic heart disease of [place] coronary artery without angina pectoris (3) Benign essential HTN: For better control of blood pressure, I may start him on amlodipine 5 mg p.o. daily, in addition to the other medications. Will try not to help on the metoprolol because of the history of bradycardia. (4) Chronic episodic atrial fibrillation: Patient may be kept on the current medication for the time being. Also continue with the oral anticoagulant. (5) Dyslipidemia (high LDL; low HDL): Continue on the current management. Plan Possibility of him having underlying coronary ischemia causing this is a consideration but my clinical suspicion is very low. Based on his clinical response to the above medication changes, further recommendations will be made. Thank you for the opportunity to eval this patient make these recommendations. Consult Attestations 2 Medical Necessity Statement: Patient requires continued hospital stay for close monitoring and further management Coding Level of Care Code 78109 Diagnoses Acute on chronic diastolic (congestive) heart failure I50.33 Atherosclerosis of [place] coronary artery of [place] heart without angina pectoris I25.10 [place] vs. transplanted heart: [place] heart Benign essential HTN I10 Chronic episodic atrial fibrillation I48.20 Dyslipidemia (high LDL; low HDL) E78.5
--- OUTSIDE RECORDS SUMMARY | 2023-03-19 18:52 | XMS_ITS | Patient Health Record ---
Author Name Unknown Organization [facility] Address [address] [place] [address] Care Team Providers Care Designer Name Role Phone Brady Nowak Primary Care Provider [phone] ALLERGIES No Known Allergies REASON FOR REFERRAL No Information MEDICATIONS Medication SIG (Take, Route, Frequency, Duration) Notes Start Date End Date Status Levothyroxine Sodium 25 MCG 1 tablet in the morning on an empty stomach Orally Once a day Active Pantoprazole Sodium 40 MG 1 tablet Orall y Once a day Active Albuterol Sulfate 108 (90 Base) MCG/ACT 1 puff as needed Inhalation every 4 hrs Active amLODIPine Besylate 5 MG 1 tablet Orally Once a day Active Apixaban 5 MG 1 tablet Orally Twic e a day Active Benzonatate 100 MG 1 capsule as needed Orally Three times a day Active Metoprolol Tartrate 25 MG 1 tablet with food Orally Twice a day Active Furosemide 20 MG 1 tablet Orally Once a day Active Ezetimibe 10 MG 1 tablet Orally Once a day Active Losartan Potassium 100 MG 1 tablet Orall y Once a day Active Vitamin E 100 UNIT as directed Orally Active Aspirin 81 81 MG 1 tablet Orally Once a day Active Cyanocobalamin 1000 MCG/ML 1 mL Injectio n Monthly for 90 days Active SOCIAL HISTORY Tobacco Use: Social History Observation Description Date Details (start date - stop date) Never Smoker NA - NA Sex Assigned At : Social History Observation Description Sex Assigned At Unknown Household Question Answer Notes Marital status: single Number of adults in household: 1 Tobacco Use/Smoking Question Answer Notes Are you a nonsmoker Alcohol Screen (Audit-C) Question Answer Notes Did you have a drink containing alcohol in the p ast year? No Points 0 Interpretation Negative PROBLEMS Problem Type ICD Code Onset Dates Problem Status W/U Status Risk SNOMED Code Notes Problem Intermittent atrial fibrillation (I48.0) Active confirmed 068669452 Problem Acquired hypothyroidism (E03.9) Active confirmed 002979375 Problem B12 deficiency (E53.8) Active confirmed 218406790 VITAL SIGNS Heart Rate 57 /min 09/16/2022 Temperature 98.0 degrees Fahrenheit 09/16/2022 Oximetry 98 % 09/16/2022 Blood pressure diastolic 78 mm Hg 09/16/2022 Weight-kg 88.45 kg 09/16/2022 Blood pressure systolic 162 mm Hg 09/16/2022 Weight 195 lbs 09/16/2022 Encounters Encounter Location Date Provider Diagnosis [facility] [address] [place] [address] 09/16/2022 Brady Nowak B12 deficiency E53.8 ; Acquired hypothyroidism E03.9 and Intermittent atrial fibrillation I48.0 [facility] [address] [place] [address] 10/21/2022 Brady Nowak [facility] [address] [place] [address] 01/14/2023 Brady Nowak [facility] [address] [place] [address] 02/10/2023 Brady Nowak ASSESSMENTS Encounter Date Diagnosis Assessment Notes Treatment Notes Treatment Clinical Notes 09/16/2022 Acquired hypothyroidism (ICD-10 - E03.9) 09/16/2022 B12 deficiency (ICD-10 - E53.8) 09/16/2022 Intermittent atrial fibrillation (ICD-10 - I48.0) PLAN OF TREATMENT No Information Insurance Providers Payer Name Payer Address Payer Phone Subscriber Number Group Number Insured Name Patient Relationship to Insured Coverage Start Date Coverage End Date [place] [address] [place] [address] [id number] David Orozco Self - patient is the insured MEDICATIONS ADMINISTERED Medication Instructions Date of Administration Dosage Notes Cyanocobalamin 09/16/2022 1 ug MEDICAL (GENERAL) HISTORY Hospitalization History Reason Date(Month/Year) a-Fib, Covid
[2023-03-19] MEDS: enoxaparin 100 mg/mL Syringe 90 MG SUBCUT (19:22)
[2023-03-20] VITALS (7 sets, daily range): BP systolic 131–161; BP diastolic 86–104; PULSE 76–118; RESP 16–19; TEMP 36.6; O2SAT 96–99; BMI 28.0
[2023-03-20 04:02] LABS: Basophils % 0.5 %; Eosinophils # 0.1 10^3/uL (0.0-0.8); Hematocrit 46.8 % (37-53); Lymphocytes # 1.5 10^3/uL (0.8-4.8); Lymphocytes % 28.2 %; Mean Corpuscular HGB Conc 33.8 g/dL (30-55); Mean Corpuscular Hemoglobin 34.1 pg (27-33); Mean Corpuscular Volume 100.9 fl (82-101); Mean Platelet Volume 10.8 fL (7.4-10.4); Monocytes # 0.7 10^3/uL (0.2-0.9); Neutrophils # 3.06 10^3/uL (1.8-7.7); Neutrophils % 56.1 %; Nucleated Red Blood Cells % 0 %; Platelet Count 187 10^3/cmm (157-399); Red Blood Count 4.64 10^6/uL (3.85-5.65); Red Cell Distribution Width 13.8 % (12.1-15.1); White Blood Count 5.46 10^3/uL (3.29-11.43)
[2023-03-20 04:25] LABS: Alanine Aminotransferase 10 U/L (0-41); Albumin Level 3.7 g/dL (3.5-5.2); Alkaline Phosphatase 81 U/L (40-130); Anion Gap 13.8 (5-19); Aspartate Amino Transferase 17 U/L (0-40); Blood Urea Nitrogen 21 mg/dL (8-23); Calcium 9.9 mg/dL (8.5-10.5); Carbon Dioxide 28 mmol/L (22-29); Chloride 102 mmol/L (98-107); Globulin 3.6 g/dL (1.3-4.6); Glucose 87 mg/dL (65-115); Osmolality Calculated 292 mOsm/kg (285-295); Potassium 3.8 mmol/L (3.5-5.1); Sodium 140 mmol/L (136-145); Total Bilirubin 1.4 mg/dL (0.15-1.2); Total Protein 7.3 g/dL (6.6-8.7)
[2023-03-20] MEDS: losartan 50 mg Tablet PO (05:10)
[2023-03-20] MEDS: aspirin 81 mg EC Tablet PO (05:10)
--- NOTE | 2023-03-20 06:25 | PC.NURSE ---
patient BP was 161/104, notified Dr Lagos and she instructed to give losartan 50 mg early 509.
[2023-03-20] MEDS: ondansetron 2 mg/ML SDV 2 mL 4 MG IVP (07:26)
[2023-03-20] MEDS: regadenoson 0.4 Mg/5 ml Syringe IVP (07:30)
[2023-03-20] MEDS: metoprolol tartrate 50 mg Tablet PO (08:58)
[2023-03-20] MEDS: FUROsemide 40 mg Tablet PO (08:58)
[2023-03-20] MEDS: pantoprazole DR 40 mg Tablet PO (08:58)
--- NOTE | 2023-03-20 09:00 | NMCV_ITS ---
NM stephan perf SPECT r/s* [id number] David Orozco Age: 82 Gender: M : 1940 Exam Date: 03/20/2023 06:41 Ordering Phys: Jimbo Torres MD Technologist: HANNAH Sarabia Exam Location: [facility] Indications: CHEST PAIN STRESS TEST Please see separate stress test report in [facility] for full findings IMAGE PROTOCOL Rest/Stress 1 Lexiscan Day Radiopharmaceutical Dose (mCi) Administration Site Administered by Rest: Tc-99m 10.7 IV HANNAH Tobar Sestamibi Stress:Tc-99m 32.4 IV HANNAH Tobar Sestamibi Rest: 20-Mar-2023 60 Discovery 630 Stress: 20-Mar-2023 30 Discovery 630 0.4mg Lexiscan. Images obtained in supine and prone position. SPECT RESULTS Technical Quality: Excellent Raw Data Analysis: Normal Image Corrections: No attenuation or motion correction applied Summed Stress Score: 0 Summed Rest Score: 0 Summed Difference Score: 0 PERFUSION FINDINGS Uniform myocardial tracer uptake with no significant perfusion abnormalities FUNCTIONAL RESULTS (calculated via Gated SPECT) Stress Image LV EF (%): 70 Stress EDV (mL):83 TID: 0.89 Stress ESV (mL):25 FUNCTIONAL FINDINGS: Segmental wall motion analysis revealing no gross wall motion abnormalities IMPRESSIONS 1. Uniform myocardial tracer uptake with no significant perfusion abnormalities 2. Normal ejection fraction 70% 3. LV wall motion analysis revealing no gross wall motion abnormalities. 4. Normal LV volume Low probability for coronary ischemia, based on the above findings Dr Kavon Cordoba MD FAC (Electronically Signed) Final Date: 20 March 2023 13:14 S
--- NOTE | 2023-03-20 09:17 | P.PN_ITS ---
Subjective 2 Subjective: Patient is feeling better. No chest pain. No new arrhythmias on the monitor. The blood pressure is slightly elevated. Medications: Medication Review Details: Current Medications Acetaminophen (Acetaminophen 325 Mg Tablet) 650 mg PO Q6H PRN PRN Reason: Mild/Mod Pain Or Temp >/= 101 Aminophylline (Aminophylline 25 Mg/Ml Sdv 10 Ml) 25 mg IVP Q2M PRN PRN Reason: see dose instructions Stop: 03/21/23 07:11 Amlodipine Besylate (Amlodipine 5 Mg Tablet) 2.5 mg PO DAILY [facility] Aspirin (Aspirin 81 Mg Ec Tablet) 81 mg PO QAM [facility] Last Admin: 03/20/23 05:10 Dose: 81 mg Enoxaparin Sodium (Enoxaparin 100 Mg/Ml Syringe) 90 mg 1 mg/kg (90 mg) SUBCUT Q12H [facility] Last Admin: 03/20/23 07:13 Dose: Not Given Furosemide (Furosemide 40 Mg Tablet) 40 mg PO DAILY [facility] Last Admin: 03/20/23 08:58 Dose: 40 mg Losartan Potassium (Losartan 50 Mg Tablet) 50 mg PO DAILY [facility] Last Admin: 03/20/23 05:10 Dose: 50 mg Metoprolol Tartrate (Metoprolol Tartrate 50 Mg Tablet) 50 mg PO BID@0900,2100 [facility] Last Admin: 03/20/23 08:58 Dose: 50 mg Nitroglycerin (Nitroglycerin 0.4 Mg Sublingual Tablet) 0.4 mg SUBLINGUAL Q5M PRN PRN Reason: CHEST PAIN Stop: 03/21/23 07:11 Ondansetron HCl (Ondansetron 2 Mg/Ml Sdv 2 Ml) 4 mg IVP Q6H PRN PRN Reason: vomiting, or N/V if npo Ondansetron HCl (Ondansetron 2 Mg/Ml Sdv 2 Ml) 4 mg IVP Q2M PRN PRN Reason: NAUSEA Last Admin: 03/20/23 07:26 Dose: 4 mg Pantoprazole Sodium (Pantoprazole Dr 40 Mg Tablet) 40 mg PO DAILY [facility] Last Admin: 03/20/23 08:58 Dose: 40 mg Vitals/I&O/Wt Last Vital Signs Temp 97.8 F 03/20/23 04:00 Pulse 118 H 03/20/23 08:00 Resp 19 H 03/20/23 08:00 BP 154/102 03/20/23 08:00 Pulse Ox 96 03/20/23 08:00 O2 Del Method Room Air 03/20/23 08:00 O2 Flow Rate 6 03/19/23 14:58 03/19/23 03/20/23 03/20/23 22:59 06:59 14:59 Intake Total 300 / 300 200 / 500 1200 / 1200 Balance 300 / 300 200 / 500 1200 / 1200 Weight last 48 hrs Weight 184 lb 4 oz Weight 184 lb 8 oz Weight 200 lb Physical Exam 2 Narrative: GENERAL: The patient is alert and oriented times three. Not in any acute distress. HEENT: No significant pallor, icterus or lymphadenopathy.Oral cavity: There are no mucous membrane lesions. NECK: Trachea appears to be central. No masses noted. No JVD or thyromegaly appreciated. RESPIRATORY: Chest is symmetrical. No intercostals muscle retraction or any accessory muscle activation. There is no chest wall tenderness. Breath sounds are heard bilaterally. No rales or rhonchi heard. No evidence of any consolidation. BREASTS: Deferred. HEART: The heart sounds are normal. No S3 or S4. Short systolic murmur in the left sternal border. No diastolic murmurs. No pericardial rub ABDOMEN: No vessel pulsations or distention. No tenderness. No organomegaly appreciated. Bowel sounds are normally heard. : Deferred. RECTAL: Deferred. LYMPHATIC: No lymphadenopathy noted in the neck. EXTREMITIES: No edema or cyanosis. No clubbing. MUSCULOSKELETAL: No acute joint deformities or swelling SKIN: There are no significant rashes or ecchymosis NEUROPSYCHIATRIC: The patient is alert and oriented x3. Appears to be in a good mood. No tremors or rigidity noted. Data 03/20/23 03:17 03/20/23 03:17 Other Labs: Laboratory Last Values WBC 5.46 10^3/uL (3.29-11.43) 03/20/23 03:17 RBC 4.64 10^6/uL (3.85-5.65) 03/20/23 03:17 Hgb 15.80 g/dL (11.27-16.99) 03/20/23 03:17 Hct 46.8 % (37-53) 03/20/23 03:17 MCV 100.9 fl (82-101) 03/20/23 03:17 MCH 34.1 pg (27-33) H 03/20/23 03:17 MCHC 33.8 g/dL (30-55) 03/20/23 03:17 RDW 13.8 % (12.1-15.1) 03/20/23 03:17 Plt Count 187 10^3/cmm (157-399) 03/20/23 03:17 MPV 10.8 fL (7.4-10.4) H 03/20/23 03:17 Neut % (Auto) 56.1 % 03/20/23 03:17 Lymph % (Auto) 28.2 % 03/20/23 03:17 [place] % (Auto) 13.0 % 03/20/23 03:17 Eos % (Auto) 2.0 % 03/20/23 03:17 Baso % (Auto) 0.5 % 03/20/23 03:17 Neut # (Auto) 3.06 10^3/uL (1.8-7.7) 03/20/23 03:17 Lymph # (Auto) 1.5 10^3/uL (0.8-4.8) 03/20/23 03:17 [place] # (Auto) 0.7 10^3/uL (0.2-0.9) 03/20/23 03:17 Eos # (Auto) 0.1 10^3/uL (0.0-0.8) 03/20/23 03:17 Baso # (Auto) 0.0 10^3/uL (0.0-0.1) 03/20/23 03:17 Nucleated RBC % (auto) 0 % 03/20/23 03:17 Nucleated RBCs # 0.0 /100WBC 03/20/23 03:17 Sodium 140 mmol/L (136-145) 03/20/23 03:17 Potassium 3.8 mmol/L (3.5-5.1) 03/20/23 03:17 Chloride 102 mmol/L (98-107) 03/20/23 03:17 Carbon Dioxide 28 mmol/L (22-29) 03/20/23 03:17 Anion Gap 13.8 (5-19) 03/20/23 03:17 BUN 21 mg/dL (8-23) 03/20/23 03:17 Creatinine 1.2 mg/dL (0.7-1.2) 03/20/23 03:17 GFR Calculation Not Reportable 03/20/23 03:17 Glucose 87 mg/dL (65-115) 03/20/23 03:17 Calculated Osmolality 292 mOsm/kg (285-295) 03/20/23 03:17 Calcium 9.9 mg/dL (8.5-10.5) 03/20/23 03:17 Magnesium 2.0 mg/dL (1.7-2.3) 03/20/23 03:17 Total Bilirubin 1.4 mg/dL (0.15-1.2) H 03/20/23 03:17 AST 17 U/L (0-40) 03/20/23 03:17 ALT 10 U/L (0-41) 03/20/23 03:17 Alkaline Phosphatase 81 U/L (40-130) 03/20/23 03:17 Troponin T Baseline 16 ng/L (0-15) H 03/19/23 04:46 Troponin T 120 Minute 15.17 ng/L (0-15) H 03/19/23 06:58 Delta Troponin T -0.83 ABS# (0-10) L 03/19/23 06:58 Troponin T Hi Sens 6Hr 14.76 ng/L (0-15) 03/19/23 11:05 Troponin T Hi Sens 6Hr Delta -1.24 ng/L (0-12) L 03/19/23 11:05 NT-Pro-B Natriuret Pep 1697 pg/mL (0-450) H 03/19/23 04:46 Total Protein 7.3 g/dL (6.6-8.7) 03/20/23 03:17 Albumin 3.7 g/dL (3.5-5.2) 03/20/23 03:17 Globulin 3.6 g/dL (1.3-4.6) 03/20/23 03:17 TSH 3.23 uIU/mL (0.27-4.20) 03/19/23 11:05 A&P Assessment and plan (1) Acute on chronic diastolic (congestive) heart failure: The heart failure seems to be compensated at this time. (2) Atherosclerotic heart disease of [place] coronary artery without angina pectoris: Patient had only mild coronary disease by angiogram in 2002. Since then had multiple perfusion scans. They are all low probability for coronary ischemia. At this time, the patient may continue on the current medications. Qualifiers: [place] vs. transplanted heart: [place] heart Qualified Code(s): I25.10 - Atherosclerotic heart disease of [place] coronary artery without angina pectoris (3) Benign essential HTN: The blood pressure seems to be slowly getting under control. (4) Chronic episodic atrial fibrillation: Patient may be kept on the current medication for the time being. Also continue with the oral anticoagulant. (5) Dyslipidemia (high LDL; low HDL): Continue on the current management. Plan If the patient continues to remain stable, he may not require any further investigation at this point. Further workup may be performed as an outpatient Attestations 2 Medical Necessity Statement*: Disposition as per the primary Coding Level of Care Code 17453 Diagnoses Acute on chronic diastolic (congestive) heart failure I50.33 Atherosclerosis of [place] coronary artery of [place] heart without angina pectoris I25.10 [place] vs. transplanted heart: [place] heart Benign essential HTN I10 Chronic episodic atrial fibrillation I48.20 Dyslipidemia (high LDL; low HDL) E78.5
[2023-03-20] MEDS: amlodipine 5 mg Tablet 2.5 MG PO (09:43)
--- NOTE | 2023-03-20 10:10 | PC.CHAP ---
Pastoral Care Encounter/Spiritual Assessment Type of Contact [] Declined licensing worker visit [] Patient/Family/Request visit [] Outpatient visit [] Follow-up visit [] Physician referral [] Code/Alert [x] Routine visit [] Staff referral [] Actively dying [] Patient sleeping [] Family support [] [] Out of room [] Palliative care [] [x] Receiving care in room [] Pre-surgical visit [] Trauma [] Long length of stay [] ICU visit [] Other: Relational/Emotional Strength [x] Patient feels connected with others/family/visitors/staff [] Distress [] Loneliness/isolation [] Abandonment Spirituality of Patient [x] Person of Najma [] Attends Anglican of their Najma [x] Believes in Prayer [] Reads Bible or Sabianist materials [] There are Spiritual issues to be addressed Blending Tank Helper Interventions [x] Prayer [x] Active listening [x] Non-anxious presence [x] Spiritual/emotional support [] Crisis/trauma care [x] Spiritual counseling [] Bereavement support [] Provided bereavement packet [] Provided Bible/devotional materials [] Provided toy/stuffed animal, coloring book to patient or family member [] Provided Communion [] Anointing/[employer] [] Salvation [x] Completed spiritual assessment [] Other: Impact on Illness or Injury [] Angry [] Fearful [] Anxious [] Often cries [] Exhaustion [] Unable to work [] Unable to attend christian [] Unable to walk/stand [] Unable to read [] Unable to drive [] Unable to eat/drink [] Unable to sleep [] Unable to be with family [] Patient intubated [] Other: Summary need to check breathing had tests doing much better has a good attirude well be going home Time spent with patient 10 mins
--- NOTE | 2023-03-20 13:04 | PC.NURSE ---
Pt apparently eloped and has been off telemetry since 11:15 a.m.. and security was notified
--- NOTE | 2023-03-20 13:13 | PC.NURSE ---
Reached pt via phone and he said that someone said that he could go and so he took off his stuff and left. I informed pt that we had some medication adjustments to do and that the doc wanted to go over his stress test results. Asked the pt if he could come back to the hospital and the pt adked if he could come back tomorrow. I informed him that we really need to have him come back today as he was not properly disharged. Pt stated that he would come back Security and MD lowe.
--- NOTE | 2023-03-20 13:50 | PC.NURSE ---
pt returned to the facility with friend / family member. and security notified
--- NOTE | 2023-03-20 14:37 | P.DS_ITS ---
Discharge Providers Date of Admission: 03/19/23 09:37 Date of Discharge: March 20, 2023 Attending Provider at Admission: Jimbo Torres MD Attending Provider at Discharge: Jimbo Torres MD Primary Care Provider: Denis Nowak MD Diagnoses at Discharge Discharge Diagnosis (1) Acute on chronic diastolic (congestive) heart failure: Status: Acute (2) Atherosclerotic heart disease of [place] coronary artery without angina pectoris: Status: Acute Qualifiers: [place] vs. transplanted heart: [place] heart Qualified Code(s): I25.10 - Atherosclerotic heart disease of [place] coronary artery without angina pectoris (3) Benign essential HTN: Status: Acute (4) Chronic episodic atrial fibrillation: Status: Acute (5) Dyslipidemia (high LDL; low HDL): Status: Acute Reason for Visit Reason for Visit: SOB Hospital Course Hospital Course David is an 82-year-old white male who presented to the hospital with complaints of some shortness of breath at night. Troponin trend was not concerning. BNP was less than it had been in the past. No significant EKG changes. There was concern this was an anginal equivalent. He was placed in the hospital, observed, and a nuclear stress test was arranged the next day. On this, there was no obvious reversible ischemia. His blood pressure was noted to be elevated, and this in conjunction with his moderate mitral regurgitation might be playing a role. Therefore blood pressure medicine was adjusted while in the hospital to try to achieve better control. On March 20 he was asymptomatic, and wanting to be discharged. He was discharged for follow-up with cardiology and his primary care provider. He was given opportunity ask questions and agreed with the plan. I discussed the limitations of nuclear stress testing on discharge with the patient. Physical Exam Narrative: General exam no distress Neck is supple Cardiovascular regular rate and rhythm with 3/6 systolic murmur Lungs clear Abdomen is soft Extremities no cyanosis clubbing or edema Discharge Data Studies Completed and Pending Completed Studies During Hospitalization Category Date Time Status Cardiac Stress Test MIBI [Sestamibi Stress Test Request Exams 03/19/23 12:31 Draft ] Routine XR chest 1V portable [id number] Stat Exams 03/19/23 04:48 Completed NM stephan perf SPECT r/s* [id number] Routine Nuc Med 03/20/23 09:00 Completed Radiology Impressions Chest X-Ray 03/19/23 04:48 IMPRESSION: Basilar atelectasis. Laboratory Results WBC 5.46 10^3/uL (3.29-11.43) 03/20/23 03:17 RBC 4.64 10^6/uL (3.85-5.65) 03/20/23 03:17 Hgb 15.80 g/dL (11.27-16.99) 03/20/23 03:17 Hct 46.8 % (37-53) 03/20/23 03:17 MCV 100.9 fl (82-101) 03/20/23 03:17 MCH 34.1 pg (27-33) H 03/20/23 03:17 MCHC 33.8 g/dL (30-55) 03/20/23 03:17 RDW 13.8 % (12.1-15.1) 03/20/23 03:17 Plt Count 187 10^3/cmm (157-399) 03/20/23 03:17 MPV 10.8 fL (7.4-10.4) H 03/20/23 03:17 Neut % (Auto) 56.1 % 03/20/23 03:17 Lymph % (Auto) 28.2 % 03/20/23 03:17 [place] % (Auto) 13.0 % 03/20/23 03:17 Eos % (Auto) 2.0 % 03/20/23 03:17 Baso % (Auto) 0.5 % 03/20/23 03:17 Neut # (Auto) 3.06 10^3/uL (1.8-7.7) 03/20/23 03:17 Lymph # (Auto) 1.5 10^3/uL (0.8-4.8) 03/20/23 03:17 [place] # (Auto) 0.7 10^3/uL (0.2-0.9) 03/20/23 03:17 Eos # (Auto) 0.1 10^3/uL (0.0-0.8) 03/20/23 03:17 Baso # (Auto) 0.0 10^3/uL (0.0-0.1) 03/20/23 03:17 Nucleated RBC % (auto) 0 % 03/20/23 03:17 Nucleated RBCs # 0.0 /100WBC 03/20/23 03:17 Sodium 140 mmol/L (136-145) 03/20/23 03:17 Potassium 3.8 mmol/L (3.5-5.1) 03/20/23 03:17 Chloride 102 mmol/L (98-107) 03/20/23 03:17 Carbon Dioxide 28 mmol/L (22-29) 03/20/23 03:17 Anion Gap 13.8 (5-19) 03/20/23 03:17 BUN 21 mg/dL (8-23) 03/20/23 03:17 Creatinine 1.2 mg/dL (0.7-1.2) 03/20/23 03:17 GFR Calculation Not Reportable 03/20/23 03:17 Glucose 87 mg/dL (65-115) 03/20/23 03:17 Calculated Osmolality 292 mOsm/kg (285-295) 03/20/23 03:17 Calcium 9.9 mg/dL (8.5-10.5) 03/20/23 03:17 Magnesium 2.0 mg/dL (1.7-2.3) 03/20/23 03:17 Total Bilirubin 1.4 mg/dL (0.15-1.2) H 03/20/23 03:17 AST 17 U/L (0-40) 03/20/23 03:17 ALT 10 U/L (0-41) 03/20/23 03:17 Alkaline Phosphatase 81 U/L (40-130) 03/20/23 03:17 Troponin T Baseline 16 ng/L (0-15) H 03/19/23 04:46 Troponin T 120 Minute 15.17 ng/L (0-15) H 03/19/23 06:58 Delta Troponin T -0.83 ABS# (0-10) L 03/19/23 06:58 Troponin T Hi Sens 6Hr 14.76 ng/L (0-15) 03/19/23 11:05 Troponin T Hi Sens 6Hr Delta -1.24 ng/L (0-12) L 03/19/23 11:05 NT-Pro-B Natriuret Pep 1697 pg/mL (0-450) H 03/19/23 04:46 Total Protein 7.3 g/dL (6.6-8.7) 03/20/23 03:17 Albumin 3.7 g/dL (3.5-5.2) 03/20/23 03:17 Globulin 3.6 g/dL (1.3-4.6) 03/20/23 03:17 TSH 3.23 uIU/mL (0.27-4.20) 03/19/23 11:05 Vitals Last Vital Signs Temp 97.8 F 03/20/23 04:00 Pulse 118 H 03/20/23 14:13 Resp 19 H 03/20/23 14:13 BP 154/102 03/20/23 14:13 Pulse Ox 96 03/20/23 14:13 O2 Del Method Room Air 03/20/23 08:00 O2 Flow Rate 6 03/19/23 14:58 Discharge Plan Discharge Patient Disposition: Home Condition: Stable Prescriptions: New losartan 50 mg Tablet 50 mg PO DAILY Qty: 30 0RF amlodipine 5 mg Tablet 2.5 mg PO DAILY Qty: 15 0RF pantoprazole 40 mg Tablet,Delayed Release (Dr/Ec) 40 mg PO DAILY Qty: 30 0RF Continued aspirin 81 mg Tablet,Delayed Release (Dr/Ec) 81 mg PO QAM vitamin E 268 mg (400 unit) Capsule 268 mg PO DAILY metoprolol tartrate 25 mg Tablet 25 mg PO BID@0900,2100 Qty: 180 0RF apixaban 5 mg tablet 5 mg PO BID Qty: 180 0RF furosemide [Lasix] 40 mg tablet 40 mg PO DAILY Qty: 5 0RF Discharge Orders: Discharge Order (Routine); Ordered 03/20/23 Ordered By: Jimbo Torres Referrals: Denis Nowak MD [Primary Care Provider] - 03/27/23 2:00 pm Luz Harris FNP [Nurse Practitioner] - 04/03/23 1:30 pm Discharge Diet: Cardiac Discharge Activity: Increase activity as tolerated Patient Instructions: Amlodipine (By mouth) (Hypertenipine-2.5, Norvasc, Norliqva), Losartan (By mouth) (Cozaar), Pantoprazole (By mouth) (Protonix), Heart Failure (DC), Seasoning Without Salt (DC), Low-Sodium Diet (DC), CHF Stopl ight, Opioid Safety Activity Restrictions/Additional Instructions: Take all medicine as prescribed Follow-up with your primary care provider 3 to 5 days Follow-up with cardiology 2 weeks Return for any concerns Discharge Attestations Time Spent in Discharge Care*: greater than 30 min Quality Metrics Clinical Quality Measures [ No reported AMI, CVA or VTE this stay] Coding Level of Care Code 57697 Total time (in minutes) for Discharge: 31 Diagnoses Acute on chronic diastolic (congestive) heart failure I50.33 Atherosclerosis of [place] coronary artery of [place] heart without angina pectoris I25.10 [place] vs. transplanted heart: [place] heart Benign essential HTN I10 Chronic episodic atrial fibrillation I48.20 Dyslipidemia (high LDL; low HDL) E78.5
--- NOTE | 2023-03-20 15:01 | PC.NURSE ---
Discharge Note Patient discharged to [home] via [ambulation] accompanied by [friend / family members]. Discharge instructions reviewed with patient and/or professional healthcare representative. Mobile pharmacy medications and/or prescriptions provided. Belongings/home medications returned.
== END 2023-03-20 14:20 | disposition home or self-care (01) | DRG 291 ==
LOC: ER 09:25 → CSU 18:50
PROVIDERS: Internal Medicine; Admitting Provider Internal Medicine; Emergency Provider Family Medicine; PCP Internal Medicine; Visit Provider Internal Medicine
DX: I11.0 Hypertensive heart disease with heart failure (principal); I50.33 Acute on chronic diastolic (congestive) heart failure; I48.20 Chronic atrial fibrillation, unspecified; I16.0 Hypertensive urgency; Z79.01 Long term (current) use of anticoagulants; Z91.148 Patient's other noncompliance with medication regimen for other reason; E78.5 Hyperlipidemia, unspecified; I25.10 Atherosclerotic heart disease of native coronary artery without angina pectoris; G47.00 Insomnia, unspecified; K21.9 Gastro-esophageal reflux disease without esophagitis; M79.7 Fibromyalgia; I34.0 Nonrheumatic mitral (valve) insufficiency; E03.9 Hypothyroidism, unspecified
CPT/HCPCS: 36415; 71045; 78452; 80053; 83735; 83880; 84443; 84484; 85025; 93005; 93017; 96365; 96372; 96375; 96376; 99285; A9500; J1644; J1650; J1940; J2405; J2785; J3490

== ENCOUNTER 2023-04-18 16:25 | Emergency (ER) | payer MEDICARE, MEDICAID, SELFPAY ==
[2023-04-18 16:29] VITALS: BP 196/114; PULSE 103; RESP 22; TEMP 36.7; O2SAT 95
--- NOTE | 2023-04-18 16:38 | ED_ITS ---
Documented by User: Glynn David DO 04/19/23 05:26 HPI - Chest Pain 2 General: Chief Complaint: Chest Pain Stated Complaint: sob, back pain Time Seen by Provider: 04/18/23 16:34 Source: patient Mode of arrival: ambulatory History of Present Illness: 52-year-old male presents emergency room with complaint of chest pain rating to his back for began while he was at rest last about 30 minutes and resolved spontaneously. Has a history of atrial fibrillation for which he takes apixaban and metoprolol. He does not change his medications or missing doses recently. MD complaint: chest pain Onset (ago): minute(s) Onset: during rest Pain location: left chest Pain radiation: back Relieving factors: nothing Exacerbating factors: nothing Associated symptoms: Reports palpitations; Deny abdominal pain, dyspnea or fever(s) Review of Systems 2 Const: Denies: fever(s) or chills Card: Reports: palpitations and irregular heart rhythm; Denies: chest pain Resp: Denies: dyspnea GI: Denies: abdominal pain : Denies: dysuria, urinary frequency or urinary urgency Musc: Reports: back pain; Denies: neck pain Skin/Breast: Denies: rash PFSH ED 2 PFSH: Medical History Left ureteral calculus Renal mass Calculus of kidney with calculus of ureter History of atrial fibrillation Dyslipidemia (high LDL; low HDL) Chronic episodic atrial fibrillation Benign essential HTN Atherosclerotic heart disease of [place] coronary artery without angina pectoris Insomnia History of colon polyps Lumbar disc disease GERD (gastroesophageal reflux disease) Fibromyalgia Surgical History History of cardiac cath History of cholecystectomy History of shoulder surgery History of colonoscopy Family History Brother No problems noted. Father , at age 93 Dementia Parkinson disease Mother , at age 75 No problems noted. Denies family history of Diabetes CAD (coronary artery disease) Clotting disorder Chronic kidney disease (CKD) Suicide Anesthesia complication Bleeding disorder Lung disease Cancer Stroke Social History Smoking and tobacco/nicotine status: never used tobacco/nicotine Alcohol intake: current Alcohol intake frequency: holidays/special occasions only Substance/Drug Use: never Housing: House Marital status: / Current occupational status: retired Physical Exam 2 Const: COMMON NORMALS: no acute distress GENERAL APPEARANCE: cooperative and comfortable ORIENTATION/CONSCIOUSNESS: Yes awake, Yes oriented to person, Yes oriented to place and Yes oriented to time HENMT: COMMON NORMALS: normocephalic, atraumatic and hearing grossly normal bilaterally HEAD & SCALP: normocephalic and atraumatic Resp: COMMON NORMALS: normal respiratory effort, No retractions, No use of accessory muscles and clear to auscultation bilaterally AUSCULTATION: clear to auscultation bilaterally Cardio: COMMON NORMALS: regular rate, regular rhythm and No murmurs present (Cardio) RATE: regular rate RHYTHM: regular rhythm GI: COMMON NORMALS: Soft to palpation and No hepatosplenomegaly present A USCULTATION: Yes normoactive bowel sounds PALPATION: Yes Soft to palpation, No Tenderness to palpation present (GI), No Guarding due to palpation present (GI) and Yes No hepatosplenomegaly present Extremity: COMMON NORMALS: normal to inspection, capillary refill normal, no clubbing, cyanosis or edema, no calf tenderness and no pedal edema Neuro: SENSORIUM/ORIENTATION: Yes oriented to person, Yes oriented to place and Yes oriented to time Skin: COMMON NORMALS: no rashes or lesions noted GENERAL SKIN EXAM: no rashes or lesions noted Course 2 Vital Signs: Vital signs: Vital Signs Temperature 98.1 F 04/18/23 16:29 Pulse Rate 90 04/18/23 20:46 Respiratory Rate 17 04/18/23 20:46 Blood Pressure 196/114 04/18/23 16:29 Pulse Oximetry 96 04/18/23 20:46 Oxygen Delivery Me thod Room Air 04/18/23 16:29 MDM - Chest Pain Medical Decision Making Care signed out to Dr. Melgoza at change of shift. See final notes for diagnosis and disposition. Patient was transferred over shift change. Patient was worked up in a standard chest pain fashion with serial EKGs, serial lab work, all which was essentially benign except for an elevated bilirubin at 3.1, BUN/creatinine 13 and 1.3. Patient be discharged from the ER and should follow-up with his PCP within the next 7 days for reevaluation of his bilirubin. Patient denies any nausea vomiting right upper quadrant abdominal pain Lab Data 04/18/23 16:50 04/18/23 17:34 Laboratory Results WBC 6.60 10^3/uL (3.29-11.43) 04/18/23 16:50 RBC 4.53 10^6/uL (3.85-5.65) 04/18/23 16:50 Hgb 15.60 g/dL (11.27-16.99) 04/18/23 16:50 Hct 45.2 % (37-53) 04/18/23 16:50 MCV 99.8 fl (82-101) 04/18/23 16:50 MCH 34.4 pg (27-33) H 04/18/23 16:50 MCHC 34.5 g/dL (30-55) 04/18/23 16:50 RDW 13.9 % (12.1-15.1) 04/18/23 16:50 Plt Count 182 10^3/cmm (157-399) 04/18/23 16:50 MPV 11.2 fL (7.4-10.4) H 04/18/23 16:50 Neut % (Auto) 62.7 % 04/18/23 16:50 Lymph % (Auto) 25.3 % 04/18/23 16:50 [place] % (Auto) 10.5 % 04/18/23 16:50 Eos % (Auto) 0.9 % 04/18/23 16:50 Baso % (Auto) 0.3 % 04/18/23 16:50 Neut # (Auto) 4.14 10^3/uL (1.8-7.7) 04/18/23 16:50 Lymph # (Auto) 1.7 10^3/uL (0.8-4.8) 04/18/23 16:50 [place] # (Auto) 0.7 10^3/uL (0.2-0.9) 04/18/23 16:50 Eos # (Auto) 0.1 10^3/uL (0.0-0.8) 04/18/23 16:50 Baso # (Auto) 0.0 10^3/uL (0.0-0.1) 04/18/23 16:50 Nucleated RBC % (auto) 0 % 04/18/23 16:50 Nucleated RBCs # 0.0 /100WBC 04/18/23 16:50 Sodium 139 mmol/L (136-145) 04/18/23 17:34 Potassium 4.2 mmol/L (3.5-5.1) 04/18/23 17:34 Chloride 103 mmol/L (98-107) 04/18/23 17:34 Carbon Dioxide 24 mmol/L (22-29) 04/18/23 17:34 Anion Gap 16.2 (5-19) 04/18/23 17:34 BUN 13 mg/dL (8-23) 04/18/23 17:34 Creatinine 1.3 mg/dL (0.7-1.2) H 04/18/23 17:34 GFR Calculation Not Reportable 04/18/23 17:34 Glucose 102 mg/dL (65-115) 04/18/23 17:34 Calculated Osmolality 288 mOsm/kg (285-295) 04/18/23 17:34 Calcium 9.0 mg/dL (8.5-10.5) 04/18/23 17:34 Total Bilirubin 3.1 mg/dL (0.15-1.2) H 04/18/23 17:34 AST 14 U/L (0-40) 04/18/23 17:34 ALT 10 U/L (0-41) 04/18/23 17:34 Alkaline Phosphatase 84 U/L (40-130) 04/18/23 17:34 Troponin T Baseline 29 ng/L (0-15) H 04/18/23 17:34 Troponin T 120 Minute 31.17 ng/L (0-15) H 04/18/23 19:24 Delta Troponin T 2.17 ABS# (0-10) 04/18/23 19:24 Total Protein 6.7 g/dL (6.6-8.7) 04/18/23 17:34 Albumin 3.8 g/dL (3.5-5.2) 04/18/23 17:34 Globulin 2.9 g/dL (1.3-4.6) 04/18/23 17:34 Discharge Plan Discharge Patient Disposition: Home Clinical Impression: Elevated bilirubin Chest pain Qualifiers: Chest pain type: unspecified Qualified Code(s): R07.9 - Chest pain, unspecified Condition: Stable Prescriptions: No Action aspirin 81 mg Tablet,Delayed Release (Dr/Ec) 81 mg PO QAM vitamin E 268 mg (400 unit) Capsule 268 mg PO DAILY metoprolol tartrate 25 mg Tablet 25 mg PO BID@0900,2100 Qty: 180 0RF apixaban 5 mg tablet 5 mg PO BID Qty: 180 0RF furosemide [Lasix] 40 mg tablet 40 mg PO DAILY Qty: 5 0RF losartan 50 mg Tablet 50 mg PO DAILY Qty: 30 0RF amlodipine 5 mg Tablet 2.5 mg PO DAILY Qty: 15 0RF pantoprazole 40 mg Tablet,Delayed Release (Dr/Ec) 40 mg PO DAILY Qty: 30 0RF Discharge Orders: Discharge ED (Routine); Ordered 04/18/23 Ordered By: Remy Melgoza Referrals: Denis Nowak MD [Primary Care Provider] - 1 week Patient Instructions: Chest Pain (ED) Activity Restrictions/Additional Instructions: Your workup today for your chest pain was essentially negative for any acute causes. Is felt to be noncardiac in nature. The only abnormality on your labs was your bilirubin which was elevated at 3.1. With you not having any nausea vomiting right upper quadrant pain I do not suspect any issues however you may want to follow-up with your family practice doctor in the next 1 to 2 weeks to have it rechecked. If your pain comes back or worsens please feel free to return to the ER for further evaluation. Coding Level of Care Code ED Fruit Loader for Chg Fwd Documented by User: Remy Melgoza DO 04/18/23 22:16 HPI - Chest Pain 2 General: Chief Complaint: Chest Pain Stated Complaint: sob, back pain Time Seen by Provider: 04/18/23 16:34 [facility] ED 2 PFSH: Medical History Left ureteral calculus Renal mass Calculus of kidney with calculus of ureter History of atrial fibrillation Dyslipidemia (high LDL; low HDL) Chronic episodic atrial fibrillation Benign essential HTN Atherosclerotic heart disease of [place] coronary artery without angina pectoris Insomnia History of colon polyps Lumbar disc disease GERD (gastroesophageal reflux disease) Fibromyalgia Surgical History History of cardiac cath History of cholecystectomy History of shoulder surgery History of colonoscopy Family History Brother No problems noted. Father , at age 93 Dementia Parkinson disease Mother , at age 75 No problems noted. Denies family history of Diabetes CAD (coronary artery disease) Clotting disorder Chronic kidney disease (CKD) Suicide Anesthesia complication Bleeding disorder Lung disease Cancer Stroke Social History Smoking and tobacco/nicotine status: never used tobacco/nicotine Alcohol intake: current Alcohol intake frequency: holidays/special occasions only Substance/Drug Use: never Housing: House Marital status: / Current occupational status: retired Course 2 Vital Signs: Vital signs: Vital Signs Temperature 98.1 F 04/18/23 16:29 Pulse Rate 90 04/18/23 20:46 Respiratory Rate 17 04/18/23 20:46 Blood Pressure 196/114 04/18/23 16:29 Pulse Oximetry 96 04/18/23 20:46 Oxygen Delivery Me thod Room Air 04/18/23 16:29 MDM - Chest Pain Medical Decision Making Patient was transferred over shift change. Patient was worked up in a standard chest pain fashion with serial EKGs, serial lab work, all which was essentially benign except for an elevated bilirubin at 3.1, BUN/creatinine 13 and 1.3. Patient be discharged from the ER and should follow-up with his PCP within the next 7 days for reevaluation of his bilirubin. Patient denies any nausea vomiting right upper quadrant abdominal pain Lab Data 04/18/23 16:50 04/18/23 17:34 Laboratory Results WBC 6.60 10^3/uL (3.29-11.43) 04/18/23 16:50 RBC 4.53 10^6/uL (3.85-5.65) 04/18/23 16:50 Hgb 15.60 g/dL (11.27-16.99) 04/18/23 16:50 Hct 45.2 % (37-53) 04/18/23 16:50 MCV 99.8 fl (82-101) 04/18/23 16:50 MCH 34.4 pg (27-33) H 04/18/23 16:50 MCHC 34.5 g/dL (30-55) 04/18/23 16:50 RDW 13.9 % (12.1-15.1) 04/18/23 16:50 Plt Count 182 10^3/cmm (157-399) 04/18/23 16:50 MPV 11.2 fL (7.4-10.4) H 04/18/23 16:50 Neut % (Auto) 62.7 % 04/18/23 16:50 Lymph % (Auto) 25.3 % 04/18/23 16:50 Hardy % (Auto) 10.5 % 04/18/23 16:50 Eos % (Auto) 0.9 % 04/18/23 16:50 Baso % (Auto) 0.3 % 04/18/23 16:50 Neut # (Auto) 4.14 10^3/uL (1.8-7.7) 04/18/23 16:50 Lymph # (Auto) 1.7 10^3/uL (0.8-4.8) 04/18/23 16:50 [place] # (Auto) 0.7 10^3/uL (0.2-0.9) 04/18/23 16:50 Eos # (Auto) 0.1 10^3/uL (0.0-0.8) 04/18/23 16:50 Baso # (Auto) 0.0 10^3/uL (0.0-0.1) 04/18/23 16:50 Nucleated RBC % (auto) 0 % 04/18/23 16:50 Nucleated RBCs # 0.0 /100WBC 04/18/23 16:50 Sodium 139 mmol/L (136-145) 04/18/23 17:34 Potassium 4.2 mmol/L (3.5-5.1) 04/18/23 17:34 Chloride 103 mmol/L (98-107) 04/18/23 17:34 Carbon Dioxide 24 mmol/L (22-29) 04/18/23 17:34 Anion Gap 16.2 (5-19) 04/18/23 17:34 BUN 13 mg/dL (8-23) 04/18/23 17:34 Creatinine 1.3 mg/dL (0.7-1.2) H 04/18/23 17:34 GFR Calculation Not Reportable 04/18/23 17:34 Glucose 102 mg/dL (65-115) 04/18/23 17:34 Calculated Osmolality 288 mOsm/kg (285-295) 04/18/23 17:34 Calcium 9.0 mg/dL (8.5-10.5) 04/18/23 17:34 Total Bilirubin 3.1 mg/dL (0.15-1.2) H 04/18/23 17:34 AST 14 U/L (0-40) 04/18/23 17:34 ALT 10 U/L (0-41) 04/18/23 17:34 Alkaline Phosphatase 84 U/L (40-130) 04/18/23 17:34 Troponin T Baseline 29 ng/L (0-15) H 04/18/23 17:34 Troponin T 120 Minute 31.17 ng/L (0-15) H 04/18/23 19:24 Delta Troponin T 2.17 ABS# (0-10) 04/18/23 19:24 Total Protein 6.7 g/dL (6.6-8.7) 04/18/23 17:34 Albumin 3.8 g/dL (3.5-5.2) 04/18/23 17:34 Globulin 2.9 g/dL (1.3-4.6) 04/18/23 17:34 All radiology interpretation(s) finalized by discharge Discharge Plan Discharge Patient Disposition: Home Clinical Impression: Elevated bilirubin Chest pain Qualifiers: Chest pain type: unspecified Qualified Code(s): R07.9 - Chest pain, unspecified Condition: Stable Prescriptions: No Action aspirin 81 mg Tablet,Delayed Release (Dr/Ec) 81 mg PO QAM vitamin E 268 mg (400 unit) Capsule 268 mg PO DAILY metoprolol tartrate 25 mg Tablet 25 mg PO BID@0900,2100 Qty: 180 0RF apixaban 5 mg tablet 5 mg PO BID Qty: 180 0RF furosemide [Lasix] 40 mg tablet 40 mg PO DAILY Qty: 5 0RF losartan 50 mg Tablet 50 mg PO DAILY Qty: 30 0RF amlodipine 5 mg Tablet 2.5 mg PO DAILY Qty: 15 0RF pantoprazole 40 mg Tablet,Delayed Release (Dr/Ec) 40 mg PO DAILY Qty: 30 0RF Discharge Orders: Discharge ED (Routine); Ordered 04/18/23 Ordered By: Remy Melgoza Referrals: Denis Nowak MD [Primary Care Provider] - 1 week Patient Instructions: Chest Pain (ED) Activity Restrictions/Additional Instructions: Your workup today for your chest pain was essentially negative for any acute causes. Is felt to be noncardiac in nature. The only abnormality on your labs was your bilirubin which was elevated at 3.1. With you not having any nausea vomiting right upper quadrant pain I do not suspect any issues however you may want to follow-up with your family practice doctor in the next 1 to 2 weeks to have it rechecked. If your pain comes back or worsens please feel free to return to the ER for further evaluation. Coding Level of Care Code ED Fruit Loader for Victor M Hale
--- NOTE | 2023-04-18 17:13 | ECG_ITS ---
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 Measurements Intervals [place] Rate: 112 P: 0 NV: 0 QRS: 4 QRSD: 83 T: 51 QT: 296 QTc: 405 Interpretive Statements ATRIAL FIBRILLATION WITH RAPID VENTRICULAR RESPONSE MINIMAL ST DEPRESSION [0.025+ mV ST DEPRESSION] Compared to ECG 03/19/2023 12:01:34 ST (T wave) deviation now present Myocardial infarct finding no longer present Electronically Signed On 04-19-2023 5:55:45 ADMINISTRATION INTERN by Maximino Berkowitz M.D. [id number]
[2023-04-18 17:20] LABS: Basophils % 0.3 %; Eosinophils # 0.1 10^3/uL (0.0-0.8); Eosinophils % 0.9 %; Hematocrit 45.2 % (37-53); Lymphocytes # 1.7 10^3/uL (0.8-4.8); Lymphocytes % 25.3 %; Mean Corpuscular HGB Conc 34.5 g/dL (30-55); Mean Corpuscular Hemoglobin 34.4 pg (27-33); Mean Corpuscular Volume 99.8 fl (82-101); Mean Platelet Volume 11.2 fL (7.4-10.4); Monocytes # 0.7 10^3/uL (0.2-0.9); Monocytes % 10.5 %; Neutrophils # 4.14 10^3/uL (1.8-7.7); Neutrophils % 62.7 %; Nucleated Red Blood Cells % 0 %; Platelet Count 182 10^3/cmm (157-399); Red Blood Count 4.53 10^6/uL (3.85-5.65); Red Cell Distribution Width 13.9 % (12.1-15.1)
[2023-04-18] MEDS: metoprolol tartrate 25 mg Tablet 12.5 MG PO (17:26)
[2023-04-18] MEDS: aspirin 81 mg Chew Tablet 324 MG PO (17:26)
[2023-04-18 17:59] LABS: Alanine Aminotransferase 10 U/L (0-41); Albumin Level 3.8 g/dL (3.5-5.2); Alkaline Phosphatase 84 U/L (40-130); Anion Gap 16.2 (5-19); Aspartate Amino Transferase 14 U/L (0-40); Blood Urea Nitrogen 13 mg/dL (8-23); Carbon Dioxide 24 mmol/L (22-29); Chloride 103 mmol/L (98-107); Creatinine Clr Calc Pharmacy 46.2641; Globulin 2.9 g/dL (1.3-4.6); Glucose 102 mg/dL (65-115); Osmolality Calculated 288 mOsm/kg (285-295); Potassium 4.2 mmol/L (3.5-5.1); Sodium 139 mmol/L (136-145); Total Bilirubin 3.1 mg/dL (0.15-1.2); Total Protein 6.7 g/dL (6.6-8.7)
[2023-04-18 18:03] LABS: Troponin(5th) Baseline 29 ng/L (0-15)
--- NOTE | 2023-04-18 19:15 | ECG_ITS ---
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 Measurements Intervals [place] Rate: 90 P: 0 [place]: 0 QRS: 6 QRSD: 78 T: 33 QT: 343 QTc: 420 Interpretive Statements ATRIAL FIBRILLATION Compared to ECG 04/18/2023 16:31:31 ST (T wave) deviation no longer present Electronically Signed On 04-19-2023 6:00:02 ELECTRICAL LINEMAN by Maximino Berkowitz M.D. [id number]
[2023-04-18 19:47] LABS: Troponin 5 2HR 31.17 ng/L (0-15); Troponin 5 2HR Delta 2.17 ABS# (0-10)
[2023-04-18 20:46] VITALS: PULSE 90; RESP 17; O2SAT 96
== END 2023-04-18 20:47 | disposition home or self-care (01) ==
PROVIDERS: Emergency Provider Family Medicine; PCP Internal Medicine
DX: R07.9 Chest pain, unspecified (principal); R17 Unspecified jaundice; Z79.82 Long term (current) use of aspirin; E78.5 Hyperlipidemia, unspecified; I10 Essential (primary) hypertension; I25.10 Atherosclerotic heart disease of native coronary artery without angina pectoris
CPT/HCPCS: 36415; 80053; 84484; 85025; 93005; 99284

== ENCOUNTER 2023-04-19 05:37 | Emergency (ER) | payer MEDICARE, MEDICAID, SELFPAY ==
[2023-04-19] VITALS (7 sets, daily range): BP systolic 151–177; BP diastolic 96–110; PULSE 97–115; RESP 20; O2SAT 94–96; BMI 30.4
--- NOTE | 2023-04-19 05:47 | XRR_ITS ---
PROCEDURE INFORMATION: Exam: XR Chest Exam date and time: 04/19/2023 5:51 AM Age: 82 years old Clinical indication: Pain; Shortness of breath; Chest pressure; Prior surgery; Surgery date: 6+ months; Surgery type: RT shoulder; Patient HX: C/O cp with SOB; Additional info: Chest pain TECHNIQUE: Imaging protocol: Radiologic exam of the chest. Views: 1 view. COMPARISON: CR (CHEST, ) 03/19/2023 4:58 AM FINDINGS: Lungs: Similar mild diffuse chronic interstitial lung changes, without definite superimposed infiltrate or consolidate. Pleural spaces: No pneumothorax Heart/Mediastinum: Heart size normal Bones/joints: No suspicious osseous findings Other findings: No effusion XR/XR chest 1V portable [id number] IMPRESSION: No findings of acute cardiopulmonary process.
--- NOTE | 2023-04-19 05:47 | W.ED.CHESTPA ---
HPI - Chest Pain General: Chief Complaint: Shortness of Breath/Dyspnea Stated Complaint: pain between shoulders SOB Time Seen by Provider: 04/19/23 05:47 Source: patient Mode of arrival: ambulatory History of Present Illness: 82-year-old male with a history of atrial fibrillation presents to the emergency room with complaints of chest pain radiating to his back. He has some associated shortness of breath he was seen last night his rate was slightly elevated serial cardiac enzymes were negative. 1 month ago patient a myocardial perfusion scan which was negative for any signs of ischemia. He is mildly hypertensive and tachycardic on arrival here. The nurse it was in the room with me on when I initially assessed the patient advised me later that his complaints with the nursing staff were different than when I asked him the same questions. He denied any chest pain to them denies any back pain denied any history of any heart arrhythmias or taking any medications for blood pressure or heart rate. MD complaint: chest pain Onset (ago): hour(s) Timing of current episode: episodic Prior episodes: Yes Onset: during rest Quality: aching Relieving factors: nothing Exacerbating factors: nothing Associated symptoms: Reports dyspnea; Deny abdominal pain, diaphoresis, fever(s), leg edema, nausea, palpitations, sense of impending doom, syncope or vomiting Treatment prior to arrival: aspirin Review of Systems Const: Denies: fever(s), chills or diaphoresis Card: Denies: chest pain, palpitations or syncope Resp: Reports: dyspnea GI: Denies: abdominal pain, nausea or vomiting : Denies: dysuria, urinary frequency or urinary urgency Musc: Denies: neck pain or back pain Skin/Breast: Denies: rash PFS ED PFSH: Medical History Left ureteral calculus Renal mass Calculus of kidney with calculus of ureter History of atrial fibrillation Dyslipidemia (high LDL; low HDL) Chronic episodic atrial fibrillation Benign essential HTN Atherosclerotic heart disease of [place] coronary artery without angina pectoris Insomnia History of colon polyps Lumbar disc disease GERD (gastroesophageal reflux disease) Fibromyalgia Surgical History History of cardiac cath History of cholecystectomy History of shoulder surgery History of colonoscopy Family History Brother No problems noted. Father , at age 93 Dementia Parkinson disease Mother , at age 75 No problems noted. Denies family history of Diabetes CAD (coronary artery disease) Clotting disorder Chronic kidney disease (CKD) Suicide Anesthesia complication Bleeding disorder Lung disease Cancer Stroke Social History Smoking and tobacco/nicotine status: never used tobacco/nicotine Alcohol intake: current Alcohol intake frequency: holidays/special occasions only Substance/Drug Use: never Housing: House Marital status: / Current occupational status: retired Physical Exam Const: COMMON NORMALS: no acute distress GENERAL APPEARANCE: cooperative and comfortable ORIENTATION/CONSCIOUSNESS: Yes awake, Yes oriented to person, Yes oriented to place and Yes oriented to time HENMT: COMMON NORMALS: normocephalic, atraumatic and hearing grossly normal bilaterally HEAD & SCALP: normocephalic and atraumatic Resp: COMMON NORMALS: normal respiratory effort, No retractions, No use of accessory muscles and clear to auscultation bilaterally AUSCULTATION: clear to auscultation bilaterally Cardio: COMMON NORMALS: regular rate, regular rhythm and No murmurs present (Cardio) RATE: regular rate RHYTHM: regular rhythm GI: COMMON NORMALS: Soft to palpation and No hepatosplenomegaly present AUSCULTATION: Yes normoactive bowel sounds PALPATION: Yes Soft to palpation, No Tenderness to palpation present (GI), No Guarding due to palpation present (GI) and Yes No hepatosplenomegaly present Extremity: COMMON NORMALS: normal to inspection, capillary refill normal, no clubbing, cyanosis or edema, no calf tenderness and no pedal edema Neuro: SENSORIUM/ORIENTATION: Yes oriented to person, Yes oriented to place and Yes oriented to time Skin: COMMON NORMALS: no rashes or lesions noted GENERAL SKIN EXAM: no rashes or lesions noted Course Vital Signs: Vital signs: Vital Signs Pulse Rate 99 04/19/23 06:50 Respiratory Rate 20 H 04/19/23 06:20 Blood Pressure 151/96 04/19/23 06:35 Pulse Oximetry 95 04/19/23 06:50 Oxygen Delivery Me thod Room Air 04/19/23 06:50 MDM - Chest Pain Medical Decision Making Cardiac enzymes are negative patient had a normal stress test last month. He is having some breakthrough in his A-fib although it is not terribly high. He missed his medicines both yesterday and today when he came in may be an issue of compliance with remembering to take his medicines. He also has a small possible mass in the pancreas and the slight increase in his T. bili is otherwise asymptomatic no fever sweats chills no leukocytosis think he can be discharged at this point but he will need follow-up encouraged to follow-up with Dr. Nowak his usual doctor to have further evaluation of this done. Medical Records I reviewed the patient's medical records. Lab Data I reviewed the patient's lab results. 04/19/23 07:04 04/19/23 07:04 Radiology Impressions Chest X-Ray 04/19/23 05:47 IMPRESSION: No findings of acute cardiopulmonary process. Abdomen/Pelvis CT 04/19/23 07:51 IMPRESSION: 1. Question of subtle ill-defined approximate 10 x 12 mm hypodensity within the pancreatic head as seen on series 07/07. Can not exclude underlying mass. Consider pancreatic protocol CT follow-up for further characterization if clinically indicated. 2. Extensive left and sigmoid colon diverticulosis without CT findings of diverticulitis. Diffuse left colonic and focal sigmoid colon wall thickening is noted; differential diagnosis for this appearance includes inflammatory/infectious/neoplastic etiologies.. 3. Apparent wall thickening seen at the cecum. Correlate with any recent colonoscopy to exclude possibility of neoplasm. 4. Redemonstrated numerous bilateral renal cysts, including several containing complex contents. With nonemergent renal ultrasound if clinically indicated. 5. Pulmonary nodules as discussed. Consider follow-up per Fleischner society protocol. (For patients at low risk (minimal or absent history of smoking and of other known risk factors), no routine follow-up is indicated. For patients at high risk (history of smoking or of other known risk factors), consider optional CT Chest at 12 months. (Reference: Monty) 6. Other chronic/incidental findings as above. REFERENCES: Monty Cooper, et al. Guidelines for Management of Incidental Pulmonary Nodules Detected on CT Images: From the Fleischner Society 2017. Radiology. 2017;284(1):228-243.) Liver Ultrasound 04/19/23 07:51 IMPRESSION: 1. Limited study as above 2. Right renal simple cyst Laboratory Results WBC 8.31 10^3/uL (3.29-11.43) 04/19/23 07:04 RBC 4.35 10^6/uL (3.85-5.65) 04/19/23 07:04 Hgb 14.90 g/dL (11.27-16.99) 04/19/23 07:04 Hct 44.6 % (37-53) 04/19/23 07:04 MCV 102.5 fl (82-101) H 04/19/23 07:04 MCH 34.3 pg (27-33) H 04/19/23 07:04 MCHC 33.4 g/dL (30-55) 04/19/23 07:04 RDW 13.7 % (12.1-15.1) 04/19/23 07:04 Plt Count 182 10^3/cmm (157-399) 04/19/23 07:04 MPV 10.0 fL (7.4-10.4) 04/19/23 07:04 Neut % (Auto) 77.9 % 04/19/23 07:04 Lymph % (Auto) 11.8 % 04/19/23 07:04 [place] % (Auto) 9.3 % 04/19/23 07:04 Eos % (Auto) 0.5 % 04/19/23 07:04 Baso % (Auto) 0.1 % 04/19/23 07:04 Neut # (Auto) 6.48 10^3/uL (1.8-7.7) 04/19/23 07:04 Lymph # (Auto) 1.0 10^3/uL (0.8-4.8) 04/19/23 07:04 [place] # (Auto) 0.8 10^3/uL (0.2-0.9) 04/19/23 07:04 Eos # (Auto) 0.0 10^3/uL (0.0-0.8) 04/19/23 07:04 Baso # (Auto) 0.0 10^3/uL (0.0-0.1) 04/19/23 07:04 Nucleated RBC % (auto) 0 % 04/19/23 07:04 Nucleated RBCs # 0.0 /100WBC 04/19/23 07:04 PT 15.70 SECONDS (12.1-14.9) H 04/19/23 07:04 INR 1.21 (0.8-1.2) H 04/19/23 07:04 APTT 30.2 SECONDS (23.9-36.7) 04/19/23 07:04 Sodium 140 mmol/L (136-145) 04/19/23 07:04 Potassium 4.4 mmol/L (3.5-5.1) 04/19/23 07:04 Chloride 103 mmol/L (98-107) 04/19/23 07:04 Carbon Dioxide 23 mmol/L (22-29) 04/19/23 07:04 Anion Gap 18.4 (5-19) 04/19/23 07:04 BUN 15 mg/dL (8-23) 04/19/23 07:04 Creatinine 1.2 mg/dL (0.7-1.2) 04/19/23 07:04 GFR Calculation Not Reportable 04/19/23 07:04 Glucose 97 mg/dL (65-115) 04/19/23 07:04 Calculated Osmolality 291 mOsm/kg (285-295) 04/19/23 07:04 Calcium 9.0 mg/dL (8.5-10.5) 04/19/23 07:04 Total Bilirubin 2.7 mg/dL (0.15-1.2) H 04/19/23 07:04 AST 16 U/L (0-40) 04/19/23 07:04 ALT 9 U/L (0-41) 04/19/23 07:04 Alkaline Phosphatase 85 U/L (40-130) 04/19/23 07:04 Troponin T Baseline 32 ng/L (0-15) H 04/19/23 07:04 Troponin T 120 Minute 32.77 ng/L (0-15) H 04/19/23 09:15 Delta Troponin T 0.77 ABS# (0-10) 04/19/23 09:15 Total Protein 6.9 g/dL (6.6-8.7) 04/19/23 07:04 Albumin 3.8 g/dL (3.5-5.2) 04/19/23 07:04 Globulin 3.1 g/dL (1.3-4.6) 04/19/23 07:04 Lipase 35 U/L (13-60) 04/19/23 07:04 Hepatitis A IgM Ab Non-reactive (Nonreactive) 04/19/23 07:04 Hep Bs Antigen Non-reactive (Nonreactive) 04/19/23 07:04 Hep B Core IgM Ab Non-reactive (Nonreactive) 04/19/23 07:04 Hepatitis C Antibody Non-reactive (Nonreactive) 04/19/23 07:04 All radiology interpretation(s) finalized by discharge Discharge Plan Discharge Patient Disposition: Home Clinical Impression: Chronic episodic atrial fibrillation, Serum total bilirubin elevated, Pancreatic mass Condition: Stable Prescriptions: New amlodipine 2.5 mg tablet 2.5 mg PO DAILY Qty: 30 0RF No Action aspirin 81 mg Tablet,Delayed Release (Dr/Ec) 81 mg PO QAM vitamin E 268 mg (400 unit) Capsule 268 mg PO DAILY apixaban 5 mg tablet 5 mg PO BID Qty: 180 0RF metoprolol succinate 25 mg tablet extended release 24 hr 25 mg PO DAILY pantoprazole 40 mg Tablet,Delayed Release (Dr/Ec) 40 mg PO DAILY Qty: 30 0RF Discharge Orders: Discharge ED (Routine); Ordered 04/19/23 Ordered By: Glynn David Referrals: Denis Nowak MD [Primary Care Provider] - Discharge Diet: Usual diet Discharge Activity: Increase activity as tolerated Patient Instructions: Opioid Safety, Pain Management Activity Restrictions/Additional Instructions: Thank you for choosing [facility] for your healthcare needs today. Please realize this is an emergency room and that we are providing you with a medical screening exam and this may not be complete and all inclusive of all the testing and or work up that you may need to determine your ailment or severity of your illness. It is very important that you follow up as instructed or that you return to the Emergency Department should you have concerns or if your condition changes or worsens in any way. You are seen today for complaints of back pain. Your cardiac enzymes are unremarkable. Blood pressure is persistently elevated we did give you a prescription for amlodipine 2.5 mg daily to take in addition to your metoprolol. Your bilirubin is elevated. This is a product of liver function. On the CT there is a possible pancreatic mass that should be evaluated further. Follow-up with your primary care doctor for further evaluation referral for evaluation of this pancreatic mass. Coding Level of Care Code ED Java Software Developer for Victor M Hale
--- NOTE | 2023-04-19 05:48 | ECG_ITS ---
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 Measurements Intervals [place] Rate: 118 P: 0 [place]: 0 QRS: -9 QRSD: 80 T: 54 QT: 295 QTc: 414 Interpretive Statements ATRIAL FIBRILLATION WITH RAPID VENTRICULAR RESPONSE POSSIBLE ANTERIOR MYOCARDIAL INFARCTION , PROBABLY OLD [30 ms Q WAVE IN V3/V4, OR R < 0.2 mV IN V4] ABNORMAL RHYTHM ECG Compared to ECG 04/18/2023 19:15:36 Myocardial infarct finding now present Electronically Signed On 04-19-2023 5:53:00 MENTAL TELEPATHIST by Maximino Berkowitz M.D. [id number]
[2023-04-19] MEDS: metoprolol tartrate 25 mg Tablet PO ×2 (05:55→11:16)
[2023-04-19] MEDS: aspirin 81 mg Chew Tablet 324 MG PO (06:05)
[2023-04-19] MEDS: nitroglycerin 1 gm/inch oint Pkt 1 INCH TOPICAL (06:08)
[2023-04-19] MEDS: lidocaine 2% viscous 15 ML, aluminum-mag hydrox-simethicon 30 ML, sucralfate oral liq 1 GM PO (06:54)
[2023-04-19 07:10] LABS: Basophils % 0.1 %; Eosinophils % 0.5 %; Hematocrit 44.6 % (37-53); Lymphocytes % 11.8 %; Mean Corpuscular HGB Conc 33.4 g/dL (30-55); Mean Corpuscular Hemoglobin 34.3 pg (27-33); Mean Corpuscular Volume 102.5 fl (82-101); Monocytes # 0.8 10^3/uL (0.2-0.9); Monocytes % 9.3 %; Neutrophils # 6.48 10^3/uL (1.8-7.7); Neutrophils % 77.9 %; Nucleated Red Blood Cells % 0 %; Platelet Count 182 10^3/cmm (157-399); Red Blood Count 4.35 10^6/uL (3.85-5.65); Red Cell Distribution Width 13.7 % (12.1-15.1); White Blood Count 8.31 10^3/uL (3.29-11.43)
--- NOTE | 2023-04-19 07:35 | PC.PHAR ---
PT STATES REDUCED METOPROLOL ER SUCCINATE 25 MG FROM TWICE DAILY TO ONCE DAILY. PT NO LONGER TAKES AMLODIPINE 5 MG, FUROSEMIDE 40 MG, OR LOSARTAN 50 MG. 04/19/23
[2023-04-19 07:43] LABS: Alanine Aminotransferase 9 U/L (0-41); Albumin Level 3.8 g/dL (3.5-5.2); Alkaline Phosphatase 85 U/L (40-130); Anion Gap 18.4 (5-19); Aspartate Amino Transferase 16 U/L (0-40); Blood Urea Nitrogen 15 mg/dL (8-23); Carbon Dioxide 23 mmol/L (22-29); Chloride 103 mmol/L (98-107); Creatinine Clr Calc Pharmacy 50.1195; Globulin 3.1 g/dL (1.3-4.6); Glucose 97 mg/dL (65-115); Osmolality Calculated 291 mOsm/kg (285-295); Potassium 4.4 mmol/L (3.5-5.1); Sodium 140 mmol/L (136-145); Total Bilirubin 2.7 mg/dL (0.15-1.2); Total Protein 6.9 g/dL (6.6-8.7)
[2023-04-19 07:44] LABS: Troponin(5th) Baseline 32 ng/L (0-15)
--- NOTE | 2023-04-19 07:48 | ECG_ITS ---
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 Measurements Intervals [place] Rate: 84 P: 0 [place]: 0 QRS: -5 QRSD: 82 T: 29 QT: 360 QTc: 427 Interpretive Statements ATRIAL FIBRILLATION ABNORMAL RHYTHM ECG Compared to ECG 04/19/2023 05:43:32 Myocardial infarct finding no longer present Electronically Signed On 04-19-2023 15:45:22 TOOL ADJUSTER by Js Hendricks M.D. [id number]
--- NOTE | 2023-04-19 07:51 | USR_ITS ---
PROCEDURE INFORMATION: Exam: US Abdomen, Limited; Right Upper Quadrant Exam date and time: 04/19/2023 8:47 AM Age: 82 years old Clinical indication: Abnormal findings; Abnormal lab test; Other: Elevated t bili; Prior surgery; Surgery date: 6+ months; Surgery type: Gb removed TECHNIQUE: Imaging protocol: Real time ultrasound of the abdomen with image documentation. Limited exam focused on the right upper quadrant. COMPARISON: CT abdomen pelvis w con* [id number] 04/19/2023 8:15 AM FINDINGS: Liver: Liver is poorly visualized secondary to obscuration from adjacent bowel gas; it is grossly normal in size and no focal liver abnormality is demonstrated. The known 1 cm right hepatic lobe hypodensity seen on the recent CT is not definitely appreciated on today's study Gallbladder: Surgically absent gallbladder Biliary ducts: No biliary ductal dilation.The CBD is within normal limits for the patient's age measuring 7 mm diameter. Pancreas: Pancreas is inadequately visualized Right kidney: Right kidney is very poorly visualized but measures roughly 11.6 cm in length. A 3.6 cm right renal interpolar region simple cyst is seen. The multiple other known right renal cysts are not well demonstrated on this study. Aorta: Visualized abdominal aorta is within normal limits for size measuring maximally 2.3 cm diameter. US/US liver [id number] IMPRESSION: 1. Limited study as above 2. Right renal simple cyst
--- NOTE | 2023-04-19 07:51 | CTR_ITS ---
PROCEDURE INFORMATION: Exam: CT Abdomen And Pelvis With Contrast Exam date and time: 04/19/2023 8:15 AM Age: 82 years old Clinical indication: Abdominal pain; Generalized; Additional info: Abd pain TECHNIQUE: Imaging protocol: Computed tomography of the abdomen and pelvis with contrast. Radiation optimization: All CT scans at this facility use at least one of these dose optimization techniques: automated exposure control; mA and/or kV adjustment per patient size (includes targeted exams where dose is matched to clinical indication); or iterative reconstruction. Contrast material: OMNI 350; Contrast volume: 100 ml; Contrast route: INTRAVENOUS (IV); COMPARISON: CT kidney stone [id number] 01/30/2022 4:26 AM RADIATION DOSE METRICS: Total DLP (mGy-cm): 625.76 FINDINGS: Lungs: Visualized lung bases redemonstrate a 7 mm ground-glass nodule at the RLL base on series 06/13. Unchanged RLL basilar 4 mm subpleural nodule on series 06/11. Unchanged 5 mm LLL basilar nodule on series 06/22. Minimal right basilar lung atelectasis. Heart: Mild cardiomegaly persists; reflux of contrast into the hepatic veins suggests right heart dysfunction. Liver: Unchanged 10 mm right hepatic lobe hypodensity, too small to definitively characterize. Mild diffuse hepatic steatosis. Gallbladder and bile ducts: Surgically absent gallbladder, with expected postoperative CBD dilation (10 mm diameter maximally). Pancreas: Mild pancreatic atrophy. Question of subtle ill-defined approximate 10 x 12 mm hypodensity within the pancreatic uncinate as seen on series 07/07. Can not exclude underlying mass. Consider pancreatic protocol CT follow-up for further characterization if clinically indicated. Spleen: Normal. No splenomegaly. Adrenal glands: Normal. No mass. Kidneys and ureters: Re-identified innumerable bilateral renal cysts, including numerous internally high density cysts which may represent complex/hemorrhagic cysts, although other etiologies such as solid neoplasm can not be excluded on the basis of this study alone. The largest of these is on the left measuring 39 mm diameter and again demonstrates a punctate wall calcification versus enhancing nodule. Redemonstrated bilateral punctate nephrolithiasis. No urinary obstruction. Stomach and bowel: Re-identified extensive diverticulosis involving the left colon and sigmoid colon; there is mild wall thickening involving the entire left colon as well as an approximate 6 cm long segment of the distal sigmoid colon as seen on series ;. Apparent wall thickening seen at the cecum. Correlate with any recent colonoscopy to exclude possibility of neoplasm. Appendix: Appendix is well seen and unremarkable. Intraperitoneal space: Unremarkable. No free air. No significant fluid collection. Vasculature: Unremarkable. No abdominal aortic aneurysm. Lymph nodes: Unremarkable. No enlarged lymph nodes. Urinary bladder: Unremarkable as visualized. Reproductive: Prostate is moderately enlarged; correlate with any recent PSA. Bones/joints: Unchanged right anterior acetabular 5 mm sclerotic density which may represent a bone island. 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 Suggestion of bilateral femoral neck tunneling related to prior core decompression procedure. Similar lumbar dextroscoliosis, up to severe lumbar spondylosis, thoracic spine DISH, and ankylosis of the L3 and L4 bodies. Unchanged L1 body subcentimeter sclerotic focus which may represent a bone island. Soft tissues: Unremarkable. Other findings: Interval development of small bilateral effusions. CT/CT abdomen pelvis w con* [id number] IMPRESSION: 1. Question of subtle ill-defined approximate 10 x 12 mm hypodensity within the pancreatic head as seen on series 07/07. Can not exclude underlying mass. Consider pancreatic protocol CT follow-up for further characterization if clinically indicated. 2. Extensive left and sigmoid colon diverticulosis without CT findings of diverticulitis. Diffuse left colonic and focal sigmoid colon wall thickening is noted; differential diagnosis for this appearance includes inflammatory/infectious/neoplastic etiologies.. 3. Apparent wall thickening seen at the cecum. Correlate with any recent colonoscopy to exclude possibility of neoplasm. 4. Redemonstrated numerous bilateral renal cysts, including several containing complex contents. With nonemergent renal ultrasound if clinically indicated. 5. Pulmonary nodules as discussed. Consider follow-up per Fleischner society protocol. (For patients at low risk (minimal or absent history of smoking and of other known risk factors), no routine follow-up is indicated. For patients at high risk (history of smoking or of other known risk factors), consider optional CT Chest at 12 months. (Reference: Monty) 6. Other chronic/incidental findings as above. REFERENCES: Monty Cooper et al. Guidelines for Management of Incidental Pulmonary Nodules Detected on CT Images: From the Fleischner Society 2017. Radiology. 2017;284(1):228-243.)
[2023-04-19] MEDS: iohexol 350 mg/mL 500 mL Btl (per mL) IV (08:22)
[2023-04-19 08:59] LABS: INR 1.21 (0.8-1.2)
[2023-04-19 09:00] LABS: Partial Thromboplastin Time 30.2 SECONDS (23.9-36.7)
[2023-04-19 09:15] LABS: Hepatitis A Antibody IgM Non-Reactive (Nonreactive); Hepatitis B Core IgM Non-Reactive (Nonreactive); Hepatitis B Surface Antigen Non-Reactive (Nonreactive); Hepatitis C Virus Antibody Non-Reactive (Nonreactive)
[2023-04-19 09:46] LABS: Troponin 5 2HR 32.77 ng/L (0-15); Troponin 5 2HR Delta 0.77 ABS# (0-10)
[2023-04-19 10:36] LABS: Lipase 35 U/L (13-60)
[2023-04-19] MEDS: amlodipine 5 mg Tablet 2.5 MG PO (11:16)
== END 2023-04-19 11:22 | disposition home or self-care (01) ==
PROVIDERS: Emergency Provider Family Medicine; PCP Internal Medicine
DX: I48.20 Chronic atrial fibrillation, unspecified (principal); K86.9 Disease of pancreas, unspecified; R17 Unspecified jaundice; Z79.82 Long term (current) use of aspirin; E78.5 Hyperlipidemia, unspecified; I10 Essential (primary) hypertension; I25.10 Atherosclerotic heart disease of native coronary artery without angina pectoris
CPT/HCPCS: 36415; 71045; 74177; 76705; 80053; 80074; 83690; 84484; 85025; 85610; 85730; 93005; 99285; Q9967

== ENCOUNTER 2023-04-26 05:18 | Emergency (ER) | payer MEDICARE, MEDICAID, SELFPAY ==
[2023-04-26 05:27] VITALS: BP 206/145; PULSE 120; RESP 18; TEMP 36.6; O2SAT 100; BMI 27.0
--- NOTE | 2023-04-26 05:31 | ECG_ITS ---
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 Measurements Intervals [place] Rate: 119 P: 0 [place]: 0 QRS: -11 QRSD: 85 T: 64 QT: 301 QTc: 423 Interpretive Statements ATRIAL FIBRILLATION WITH RAPID VENTRICULAR RESPONSE NONSPECIFIC ST & T-WAVE ABNORMALITY ABNORMAL RHYTHM ECG Compared to ECG 04/19/2023 07:45:24 T-wave abnormality now present Electronically Signed On 04-27-2023 7:41:44 CANOE INSPECTOR FINAL by Js Hendricks M.D. [id number]
--- NOTE | 2023-04-26 05:31 | XRR_ITS ---
PROCEDURE INFORMATION: Exam: XR Chest Exam date and time: 04/26/2023 5:46 AM Age: 82 years old Clinical indication: Chest wall pain; Additional info: Cxp TECHNIQUE: Imaging protocol: Radiologic exam of the chest. Views: 1 view. COMPARISON: CR (CHEST, ) 04/19/2023 5:51 AM FINDINGS: Lungs: See Heart/Mediastinum finding. Pleural spaces: No pneumothorax or failure. Heart/Mediastinum: Mild vascular and interstitial prominence, cardiac decompensation is probably present. Vasculature: Mild cardiomegaly and uncoiling of the thoracic aorta accentuated by the AP positioning. Bones/joints: Unremarkable. XR/XR chest 1V portable [id number] IMPRESSION: Mild cardiac decompensation is developing.
[2023-04-26 05:44] LABS: Basophils % 0.3 %; Eosinophils % 0.3 %; Hematocrit 48.9 % (37-53); Lymphocytes # 1.1 10^3/uL (0.8-4.8); Lymphocytes % 15.2 %; Mean Corpuscular HGB Conc 33.9 g/dL (30-55); Mean Corpuscular Hemoglobin 34.4 pg (27-33); Mean Corpuscular Volume 101.5 fl (82-101); Mean Platelet Volume 10.4 fL (7.4-10.4); Monocytes # 0.5 10^3/uL (0.2-0.9); Monocytes % 7.3 %; Neutrophils # 5.35 10^3/uL (1.8-7.7); Neutrophils % 76.5 %; Nucleated Red Blood Cells % 0 %; Platelet Count 216 10^3/cmm (157-399); Red Blood Count 4.82 10^6/uL (3.85-5.65); Red Cell Distribution Width 13.9 % (12.1-15.1); White Blood Count 6.99 10^3/uL (3.29-11.43)
[2023-04-26] MEDS: aspirin 81 mg Chew Tablet 324 MG PO (05:44)
[2023-04-26] MEDS: nitroglycerin 0.4 mg sublingual Tablet SUBLINGUAL ×2 (05:44→05:53)
[2023-04-26 05:49] VITALS: BP 169/117; PULSE 118; O2SAT 95
[2023-04-26 05:55] LABS: INR 1.16 (0.8-1.2)
[2023-04-26 05:56] LABS: Partial Thromboplastin Time 29.1 SECONDS (23.9-36.7)
[2023-04-26 05:59] VITALS: BP 131/85; PULSE 108; O2SAT 92
[2023-04-26 06:03] LABS: Troponin(5th) Baseline 12 ng/L (0-15)
[2023-04-26 06:17] LABS: Alanine Aminotransferase 13 U/L (0-41); Albumin Level 4.4 g/dL (3.5-5.2); Alkaline Phosphatase 90 U/L (40-130); Aspartate Amino Transferase 17 U/L (0-40); Blood Urea Nitrogen 12 mg/dL (8-23); Calcium 9.3 mg/dL (8.5-10.5); Carbon Dioxide 23 mmol/L (22-29); Chloride 100 mmol/L (98-107); Creatinine Clr Calc Pharmacy 51.8535; Globulin 4.4 g/dL (1.3-4.6); Glucose 148 mg/dL (65-115); NT Pro B Type Natriuretic Pept 2714 pg/mL (0-450); Osmolality Calculated 287 mOsm/kg (285-295); Sodium 137 mmol/L (136-145); Total Protein 8.8 g/dL (6.6-8.7)
--- NOTE | 2023-04-26 06:25 | W.ED.CHESTPA ---
Documented by User: Augustine Field MD 04/26/23 06:39 HPI - Chest Pain General: Chief Complaint: Chest Pain Stated Complaint: SoB Time Seen by Provider: 04/26/23 05:31 History of Present Illness: 82-year-old male presents emergency department with feeling like he is having chest pain that is substernal radiating to between his bilateral shoulder blades. He states he also feels like he is having some intermittent shortness of breath. He states the chest pain he is having is a 6 out of 10 and pressure. He states that the pain woke him from his sleep this morning. He denies nausea vomiting fevers chills or night sweats. He states he has no past medical history although on review of his medical chart it does appear that he has a history of atrial fibrillation hypertension hypercholesterolemia. The patient states he takes no medications although on review of his past medical chart states that he has several medications that have been prescribed to him. Associated symptoms: Reports dyspnea Review of Systems General: Reports: 10 or more systems reviewed and unremarkable except in HPI and below Card: Reports: chest pain Resp: Reports: dyspnea PFSH ED PFSH: Medical History Left ureteral calculus Renal mass Calculus of kidney with calculus of ureter History of atrial fibrillation Dyslipidemia (high LDL; low HDL) Chronic episodic atrial fibrillation Benign essential HTN Atherosclerotic heart disease of [place] coronary artery without angina pectoris Insomnia History of colon polyps Lumbar disc disease GERD (gastroesophageal reflux disease) Fibromyalgia Surgical History History of cardiac cath History of cholecystectomy History of shoulder surgery History of colonoscopy Family History Brother No problems noted. Father , at age 93 Dementia Parkinson disease Mother , at age 75 No problems noted. Denies family history of Diabetes CAD (coronary artery disease) Clotting disorder Chronic kidney disease (CKD) Suicide Anesthesia complication Bleeding disorder Lung disease Cancer Stroke Social History Smoking and tobacco/nicotine status: never used tobacco/nicotine Alcohol intake: current Alcohol intake frequency: holidays/special occasions only Substance/Drug Use: never Housing: House Marital status: / Current occupational status: retired Physical Exam Narrative: EXAM NARRATIVE: Constitutional: the patient appears well nourished and with normal development. Vital signs reviewed as documented. HENMT: Normocephalic, atraumatic. External ears normal appearance without drainage. Nose without drainage, normal appearance. Mucus membranes moist. Neck is supple, No jugular venous distension, trachea is midline, no appreciable carotid bruits. No lymphadenopathy. No meningeal signs. Flexion, extension and lateral rotation is without pain. Eyes: Pupils are equal, round, reactive to light and accommodation. No scleral icterus. Extra-ocular movement are intact. Thorax is symmetrical and with equal rise and fall with respirations. Resp: Lungs are clear to auscultation. No wheezes, rales, crackles or ronchi at present. Cardio: Atrial fibrillation with rapid ventricular response and a ventricular rate of 119.. Positive S1, S2. No appreciable murmurs, rubs or gallops. GI: Abdominal exam reveals normal bowel sounds to all quadrants. No organomegaly. No obvious palpable masses noted. No hepatomegally appreciated. Soft, non-tender to palpation. Extremity: Extremities are non-edematous and both femoral and pedal pulses are 2+ and equal bilaterally. Moves all extremities well, sensation in all extremities. Neuro: Alert and oriented x4, person, place, time and situation. Cranial nerves II through XII are grossly intact, there is no focal neurological deficits that I can appreciate at present. Motor strength in the upper and lower extremities are equal and bilateral 5/5. Psych: Cooperative, calm, normal thought process, appropriate judgment. Skin: No lesions, rashes. No gross abnormalities noted. Back: Symmetrical, no obvious deformity, No CVA tenderness Course Vital Signs: Vital signs: Vital Signs Temperature 98 F 04/26/23 05:27 Pulse Rate 91 04/26/23 07:47 Respiratory Rate 17 04/26/23 07:47 Blood Pressure 158/99 04/26/23 07:47 Pulse Oximetry 97 04/26/23 07:47 Oxygen Delivery Me thod Room Air 04/26/23 06:35 MDM - Chest Pain Medical Decision Making Physical exam completed document I will order cardiac enzymes and serial EKGs as well as chest x-ray CBC CMP PTT INR and reevaluate. I have provided the patient cardiac dose aspirin as well as sublingual nitroglycerin. I have discussed the patient's case with the on-coming physician < Dr. David > and they have assumed care of the patient. We have discussed the current lab/radiographic results that have been resulted and the pending tests. Medical Records I reviewed the patient's medical records. Lab Data I reviewed the patient's lab results. 04/26/23 05:40 04/26/23 05:40 Radiology Impressions Chest X-Ray 04/26/23 05:31 IMPRESSION: Mild cardiac decompensation is developing. Laboratory Results WBC 6.99 10^3/uL (3.29-11.43) 04/26/23 05:40 RBC 4.82 10^6/uL (3.85-5.65) 04/26/23 05:40 Hgb 16.60 g/dL (11.27-16.99) 04/26/23 05:40 Hct 48.9 % (37-53) 04/26/23 05:40 MCV 101.5 fl (82-101) H 04/26/23 05:40 MCH 34.4 pg (27-33) H 04/26/23 05:40 MCHC 33.9 g/dL (30-55) 04/26/23 05:40 RDW 13.9 % (12.1-15.1) 04/26/23 05:40 Plt Count 216 10^3/cmm (157-399) 04/26/23 05:40 MPV 10.4 fL (7.4-10.4) 04/26/23 05:40 Neut % (Auto) 76.5 % 04/26/23 05:40 Lymph % (Auto) 15.2 % 04/26/23 05:40 [place] % (Auto) 7.3 % 04/26/23 05:40 Eos % (Auto) 0.3 % 04/26/23 05:40 Baso % (Auto) 0.3 % 04/26/23 05:40 Neut # (Auto) 5.35 10^3/uL (1.8-7.7) 04/26/23 05:40 Lymph # (Auto) 1.1 10^3/uL (0.8-4.8) 04/26/23 05:40 [place] # (Auto) 0.5 10^3/uL (0.2-0.9) 04/26/23 05:40 Eos # (Auto) 0.0 10^3/uL (0.0-0.8) 04/26/23 05:40 Baso # (Auto) 0.0 10^3/uL (0.0-0.1) 04/26/23 05:40 Nucleated RBC % (auto) 0 % 04/26/23 05:40 Nucleated RBCs # 0.0 /100WBC 04/26/23 05:40 PT 15.10 SECONDS (12.1-14.9) H 04/26/23 05:40 INR 1.16 (0.8-1.2) 04/26/23 05:40 APTT 29.1 SECONDS (23.9-36.7) 04/26/23 05:40 Sodium 137 mmol/L (136-145) 04/26/23 05:40 Potassium 4.0 mmol/L (3.5-5.1) 04/26/23 05:40 Chloride 100 mmol/L (98-107) 04/26/23 05:40 Carbon Dioxide 23 mmol/L (22-29) 04/26/23 05:40 Anion Gap 18.0 (5-19) 04/26/23 05:40 BUN 12 mg/dL (8-23) 04/26/23 05:40 Creatinine 1.1 mg/dL (0.7-1.2) 04/26/23 05:40 GFR Calculation Not Reportable 04/26/23 05:40 Glucose 148 mg/dL (65-115) H 04/26/23 05:40 Calculated Osmolality 287 mOsm/kg (285-295) 04/26/23 05:40 Calcium 9.3 mg/dL (8.5-10.5) 04/26/23 05:40 Total Bilirubin 1.0 mg/dL (0.15-1.2) 04/26/23 05:40 AST 17 U/L (0-40) 04/26/23 05:40 ALT 13 U/L (0-41) 04/26/23 05:40 Alkaline Phosphatase 90 U/L (40-130) 04/26/23 05:40 Troponin T Baseline 12 ng/L (0-15) 04/26/23 05:40 Troponin T 120 Minute 13.46 ng/L (0-15) 04/26/23 07:42 Delta Troponin T 1.46 ABS# (0-10) 04/26/23 07:42 NT-Pro-B Natriuret Pep 2714 pg/mL (0-450) H 04/26/23 05:40 Total Protein 8.8 g/dL (6.6-8.7) H 04/26/23 05:40 Albumin 4.4 g/dL (3.5-5.2) 04/26/23 05:40 Globulin 4.4 g/dL (1.3-4.6) 04/26/23 05:40 All radiology interpretation(s) finalized by discharge EKG Data EKG 1: Interpretation: Twelve-lead EKG obtained at 531 and reviewed at 532 demonstrates atrial fibrillation with rapid ventricular response, ventricular rate of 119, QRS duration 85 QT [address] elevation or depression to demonstrate acute ischemia or infarction at present Discharge Plan Discharge Patient Disposition: Home Clinical Impression: Atypical chest pain Condition: Stable Prescriptions: No Action aspirin 81 mg Tablet,Delayed Release (Dr/Ec) 81 mg PO QAM vitamin E 268 mg (400 unit) Capsule 268 mg PO DAILY apixaban 5 mg tablet 5 mg PO BID Qty: 180 0RF metoprolol succinate 25 mg tablet extended release 24 hr 25 mg PO DAILY amlodipine 2.5 mg tablet 2.5 mg PO DAILY Qty: 30 0RF pantoprazole 40 mg Tablet,Delayed Release (Dr/Ec) 40 mg PO DAILY Qty: 30 0RF Discharge Orders: Discharge ED (Routine); Ordered 04/26/23 Ordered By: Ally David Referrals: Denis Nowak MD [Primary Care Provider] - (You have been screened and evaluated and felt safe for discharge. Health conditions do change or evolve sometimes and as such it is important that you follow up with your Primary Doctor to be re checked, 3-5 days is a general good time frame for follow up. You are always welcome to return to the ED for re assessment if your symptoms are worsening or you have new concerns) Discharge Diet: Advance as tolerated Patient Instructions: Opioid Safety, Pain Management, Chest Pain - Noncardiac Coding Level of Care Code ED Bag Filler Machine Operator for Chg Fwd Documented by User: Ally David MD 04/26/23 11:30 HPI - Chest Pain General: Chief Complaint: Chest Pain Stated Complaint: SoB Time Seen by Provider: 04/26/23 05:31 PFSH ED PFSH: Medical History Left ureteral calculus Renal mass Calculus of kidney with calculus of ureter History of atrial fibrillation Dyslipidemia (high LDL; low HDL) Chronic episodic atrial fibrillation Benign essential HTN Atherosclerotic heart disease of [place] coronary artery without angina pectoris Insomnia History of colon polyps Lumbar disc disease GERD (gastroesophageal reflux disease) Fibromyalgia Surgical History History of cardiac cath History of cholecystectomy History of shoulder surgery History of colonoscopy Family History Brother No problems noted. Father , at age 93 Dementia Parkinson disease Mother , at age 75 No problems noted. Denies family history of Diabetes CAD (coronary artery disease) Clotting disorder Chronic kidney disease (CKD) Suicide Anesthesia complication Bleeding disorder Lung disease Cancer Stroke Social History Smoking and tobacco/nicotine status: never used tobacco/nicotine Alcohol intake: current Alcohol intake frequency: holidays/special occasions only Substance/Drug Use: never Housing: House Marital status: / Current occupational status: retired Course Vital Signs: Vital signs: Vital Signs Temperature 98 F 04/26/23 05:27 Pulse Rate 91 04/26/23 07:47 Respiratory Rate 17 04/26/23 07:47 Blood Pressure 158/99 04/26/23 07:47 Pulse Oximetry 97 04/26/23 07:47 Oxygen Delivery Me thod Room Air 04/26/23 06:35 MDM - Chest Pain Lab Data 04/26/23 05:40 04/26/23 05:40 Radiology Impressions Chest X-Ray 04/26/23 05:31 IMPRESSION: Mild cardiac decompensation is developing. Laboratory Results WBC 6.99 10^3/uL (3.29-11.43) 04/26/23 05:40 RBC 4.82 10^6/uL (3.85-5.65) 04/26/23 05:40 Hgb 16.60 g/dL (11.27-16.99) 04/26/23 05:40 Hct 48.9 % (37-53) 04/26/23 05:40 MCV 101.5 fl (82-101) H 04/26/23 05:40 MCH 34.4 pg (27-33) H 04/26/23 05:40 MCHC 33.9 g/dL (30-55) 04/26/23 05:40 RDW 13.9 % (12.1-15.1) 04/26/23 05:40 Plt Count 216 10^3/cmm (157-399) 04/26/23 05:40 MPV 10.4 fL (7.4-10.4) 04/26/23 05:40 Neut % (Auto) 76.5 % 04/26/23 05:40 Lymph % (Auto) 15.2 % 04/26/23 05:40 [place] % (Auto) 7.3 % 04/26/23 05:40 Eos % (Auto) 0.3 % 04/26/23 05:40 Baso % (Auto) 0.3 % 04/26/23 05:40 Neut # (Auto) 5.35 10^3/uL (1.8-7.7) 04/26/23 05:40 Lymph # (Auto) 1.1 10^3/uL (0.8-4.8) 04/26/23 05:40 [place] # (Auto) 0.5 10^3/uL (0.2-0.9) 04/26/23 05:40 Eos # (Auto) 0.0 10^3/uL (0.0-0.8) 04/26/23 05:40 Baso # (Auto) 0.0 10^3/uL (0.0-0.1) 04/26/23 05:40 Nucleated RBC % (auto) 0 % 04/26/23 05:40 Nucleated RBCs # 0.0 /100WBC 04/26/23 05:40 PT 15.10 SECONDS (12.1-14.9) H 04/26/23 05:40 INR 1.16 (0.8-1.2) 04/26/23 05:40 APTT 29.1 SECONDS (23.9-36.7) 04/26/23 05:40 Sodium 137 mmol/L (136-145) 04/26/23 05:40 Potassium 4.0 mmol/L (3.5-5.1) 04/26/23 05:40 Chloride 100 mmol/L (98-107) 04/26/23 05:40 Carbon Dioxide 23 mmol/L (22-29) 04/26/23 05:40 Anion Gap 18.0 (5-19) 04/26/23 05:40 BUN 12 mg/dL (8-23) 04/26/23 05:40 Creatinine 1.1 mg/dL (0.7-1.2) 04/26/23 05:40 GFR Calculation Not Reportable 04/26/23 05:40 Glucose 148 mg/dL (65-115) H 04/26/23 05:40 Calculated Osmolality 287 mOsm/kg (285-295) 04/26/23 05:40 Calcium 9.3 mg/dL (8.5-10.5) 04/26/23 05:40 Total Bilirubin 1.0 mg/dL (0.15-1.2) 04/26/23 05:40 AST 17 U/L (0-40) 04/26/23 05:40 ALT 13 U/L (0-41) 04/26/23 05:40 Alkaline Phosphatase 90 U/L (40-130) 04/26/23 05:40 Troponin T Baseline 12 ng/L (0-15) 04/26/23 05:40 Troponin T 120 Minute 13.46 ng/L (0-15) 04/26/23 07:42 Delta Troponin T 1.46 ABS# (0-10) 04/26/23 07:42 NT-Pro-B Natriuret Pep 2714 pg/mL (0-450) H 04/26/23 05:40 Total Protein 8.8 g/dL (6.6-8.7) H 04/26/23 05:40 Albumin 4.4 g/dL (3.5-5.2) 04/26/23 05:40 Globulin 4.4 g/dL (1.3-4.6) 04/26/23 05:40 Other Data Serial troponins have remained negative. Serial EKGs have been nonischemic. Patient feels better and wants to go home. - Discharged home - Discussed findings and plan with patient. Answered any questions. - All laboratory values were reviewed and interpreted personally by myself, the ER physician - All imaging was reviewed and interpreted personally by myself, the ER physician. - Evaluation and treatment of this problem were appropriate in the emergency setting Discharge Plan Discharge Patient Disposition: Home Clinical Impression: Atypical chest pain Condition: Stable Prescriptions: No Action aspirin 81 mg Tablet,Delayed Release (Dr/Ec) 81 mg PO QAM vitamin E 268 mg (400 unit) Capsule 268 mg PO DAILY apixaban 5 mg tablet 5 mg PO BID Qty: 180 0RF metoprolol succinate 25 mg tablet extended release 24 hr 25 mg PO DAILY amlodipine 2.5 mg tablet 2.5 mg PO DAILY Qty: 30 0RF pantoprazole 40 mg Tablet,Delayed Release (Dr/Ec) 40 mg PO DAILY Qty: 30 0RF Discharge Orders: Discharge ED (Routine); Ordered 04/26/23 Ordered By: Ally David Referrals: Denis Nowak MD [Primary Care Provider] - (You have been screened and evaluated and felt safe for discharge. Health conditions do change or evolve sometimes and as such it is important that you follow up with your Primary Doctor to be re checked, 3-5 days is a general good time frame for follow up. You are always welcome to return to the ED for re assessment if your symptoms are worsening or you have new concerns) Discharge Diet: Advance as tolerated Patient Instructions: Opioid Safety, Pain Management, Chest Pain - Noncardiac Coding Level of Care Code ED Bag Filler Machine Operator for Victor M Hale
[2023-04-26 06:35] VITALS: BP 149/97; PULSE 90; O2SAT 91
[2023-04-26 07:47] VITALS: BP 158/99; PULSE 91; RESP 17; O2SAT 97
[2023-04-26 08:16] LABS: Troponin 5 2HR 13.46 ng/L (0-15); Troponin 5 2HR Delta 1.46 ABS# (0-10)
[2023-04-26 12:49] VITALS: BP 151/96; PULSE 87; O2SAT 92
== END 2023-04-26 12:50 | disposition home or self-care (01) ==
PROVIDERS: Emergency Provider Internal Medicine; PCP Internal Medicine
DX: R07.89 Other chest pain (principal); Z79.82 Long term (current) use of aspirin; E78.5 Hyperlipidemia, unspecified; I10 Essential (primary) hypertension; I25.10 Atherosclerotic heart disease of native coronary artery without angina pectoris
CPT/HCPCS: 36415; 71045; 80053; 83880; 84484; 85025; 85610; 85730; 93005; 99285

== ENCOUNTER 2023-05-08 05:34 | Emergency (ER) | payer MEDICARE, MEDICAID, SELFPAY ==
[2023-05-08] VITALS (7 sets, daily range): BP systolic 135–212; BP diastolic 97–122; PULSE 82–110; RESP 12–18; TEMP 36.4; O2SAT 96–97; BMI 30.4
--- NOTE | 2023-05-08 05:37 | XRR_ITS ---
PROCEDURE INFORMATION: Exam: XR Chest Exam date and time: 05/08/2023 5:53 AM Age: 82 years old Clinical indication: Chest wall pain; Additional info: Chest pain TECHNIQUE: Imaging protocol: Radiologic exam of the chest. Views: 1 view. COMPARISON: CR (CHEST, ) 04/26/2023 5:46 AM FINDINGS: Lungs: Mild interstitial prominence. No consolidation or pneumothorax. Pleural spaces: Unremarkable. No pleural effusion. No pneumothorax. Heart/Mediastinum: Unremarkable. No cardiomegaly. Bones/joints: Unremarkable. XR/XR chest 1V portable [id number] IMPRESSION: No acute findings.
--- NOTE | 2023-05-08 05:38 | ECG_ITS ---
[facility] Test Date: 2023-05-08 Pat Name: David Orozco Department: Room: Gender: Male Employee Relations Assistant: : 1940 Requested By: Remy Melgoza Order Number: [id number] Jessica MD: Kavon Cordoba M.D. Measurements Intervals [place] Rate: 106 P: 0 WI: 0 QRS: -3 QRSD: 86 T: 66 QT: 328 QTc: 437 Interpretive Statements ATRIAL FIBRILLATION WITH RAPID VENTRICULAR RESPONSE MODERATE ST DEPRESSION [0.05+ mV ST DEPRESSION] Compared to ECG 04/26/2023 05:31:09 ST (T wave) deviation now present T-wave abnormality no longer present Electronically Signed On 05-08-2023 21:03:40 [employer] by Kavon Cordoba M.D. [email or web address]
[2023-05-08 05:58] LABS: Basophils % 0.4 %; Eosinophils # 0.1 10^3/uL (0.0-0.8); Eosinophils % 1.7 %; Hematocrit 46.9 % (37-53); Lymphocytes # 1.5 10^3/uL (0.8-4.8); Lymphocytes % 19.9 %; Mean Corpuscular HGB Conc 34.3 g/dL (30-55); Mean Corpuscular Hemoglobin 34.9 pg (27-33); Mean Corpuscular Volume 101.7 fl (82-101); Mean Platelet Volume 10.4 fL (7.4-10.4); Monocytes # 0.7 10^3/uL (0.2-0.9); Monocytes % 9.5 %; Neutrophils # 5.12 10^3/uL (1.8-7.7); Neutrophils % 68.2 %; Nucleated Red Blood Cells % 0 %; Platelet Count 186 10^3/cmm (157-399); Red Blood Count 4.61 10^6/uL (3.85-5.65); Red Cell Distribution Width 13.9 % (12.1-15.1)
--- NOTE | 2023-05-08 06:04 | W.ED.SOB ---
HPI - SOB/Dyspnea General: Chief Complaint: Shortness of Breath/Dyspnea Stated Complaint: SOB\Pain Between Shoulders Time Seen by Provider: 05/08/23 05:37 Source: patient History of Present Illness: HPI Narrative: 82-year-old male presents emergency room again with complaints of shortness of breath and chest discomfort. He has had multiple workups for this including a stress test 1 month ago that was negative (Lexiscan sestamibi stress test). He has a known history of atrial fibrillation and he is on metoprolol and apixaban as well as amlodipine for blood pressure. He is also on pantoprazole. He has a known history of diastolic congestive heart failure as well and has had hospitalizations for same. His heart rate when he arrives here today is right at 100 complaining of shortness of breath chest pain radiating to his back between his shoulder blades. MD elicited complaint: shortness of breath and chest pain Associated symptoms: Deny abdominal pain, chest pain or fever(s) Review of Systems Const: Denies: fever(s) or chills Card: Denies: chest pain Resp: Denies: dyspnea GI: Denies: abdominal pain : Denies: dysuria, urinary frequency or urinary urgency Musc: Denies: neck pain or back pain Skin/Breast: Denies: rash PFSH ED PFSH: Medical History Left ureteral calculus Renal mass Calculus of kidney with calculus of ureter History of atrial fibrillation Dyslipidemia (high LDL; low HDL) Chronic episodic atrial fibrillation Benign essential HTN Atherosclerotic heart disease of [place] coronary artery without angina pectoris Insomnia History of colon polyps Lumbar disc disease GERD (gastroesophageal reflux disease) Fibromyalgia Surgical History History of cardiac cath History of cholecystectomy History of shoulder surgery History of colonoscopy Family History Brother No problems noted. Father , at age 93 Dementia Parkinson disease Mother , at age 75 No problems noted. Denies family history of Diabetes CAD (coronary artery disease) Clotting disorder Chronic kidney disease (CKD) Suicide Anesthesia complication Bleeding disorder Lung disease Cancer Stroke Social History (Reviewed 05/08/23 @ 06:05 by PALLAVI Pinto Smoking and tobacco/nicotine status: never used tobacco/nicotine Alcohol intake: current Alcohol intake frequency: holidays/special occasions only Substance/Drug Use: never Housing: House Marital status: / Current occupational status: retired Physical Exam Const: GENERAL APPEARANCE: cooperative and comfortable ORIENTATION/CONSCIOUSNESS: Yes awake, Yes oriented to person, Yes oriented to place and Yes oriented to time HENMT: COMMON NORMALS: normocephalic, atraumatic and hearing grossly normal bilaterally HEAD & SCALP: normocephalic and atraumatic Resp: COMMON NORMALS: normal respiratory effort, No retractions, No use of accessory muscles and clear to auscultation bilaterally AUSCULTATION: clear to auscultation bilaterally Cardio: COMMON NORMALS: No murmurs present (Cardio) RATE: tachycardic RHYTHM: abnormal rhythm irregularly irregular GI: COMMON NORMALS: Soft to palpation and No hepatosplenomegaly present AUSCULTATION: Yes normoactive bowel sounds PALPATION: Yes Soft to palpation, No Tenderness to palpation present (GI), No Guarding due to palpation present (GI) and Yes No hepatosplenomegaly present Extremity: COMMON NORMALS: normal to inspection, capillary refill normal, no clubbing, cyanosis or edema, no calf tenderness and no pedal edema Neuro: SENSORIUM/ORIENTATION: Yes oriented to person, Yes oriented to place and Yes oriented to time Skin: COMMON NORMALS: no rashes or lesions noted GENERAL SKIN EXAM: no rashes or lesions noted Course Vital Signs: Vital signs: Vital Signs Temperature 97.5 F L 05/08/23 05:39 Pulse Rate 110 H 05/08/23 09:36 Respiratory Rate 18 05/08/23 09:36 Blood Pressure 140/97 05/08/23 09:36 Pulse Oximetry 96 05/08/23 09:36 Oxygen Delivery Me thod Room Air 05/08/23 07:45 MDM - SOB/Dyspnea Medical Decision Making Cardiac enzymes negative EKG does not show acute changes chest x-ray normal CT of the aorta does not show any sign of dissection there is no sign of pneumonia or pneumothorax. Discussed with the patient no acute emergent findings at this time. I think some of his symptoms were from COPD somewhere from his chronic atrial fibrillation continue to follow-up with cardiology I will refer to pulmonology. Return if is further problems. Differential Diagnosis Unlikely congestive heart failure, community acquired pneumonia or pulmonary embolism Medical Records I reviewed the patient's medical records. Lab Data I reviewed the patient's lab results. 05/08/23 05:47 05/08/23 05:47 Labs/Radiology: Radiology Impressions Chest X-Ray 05/08/23 05:37 IMPRESSION: No acute findings. Chest/Abdomen/Pelvis CT 05/08/23 06:28 IMPRESSION: 1. Stable scattered pulmonary nodules, the largest 10 mm. 2. Additional follow-up chest CT in 12 additional months recommended. 3. No vascular abnormality. IMPRESSION: No acute findings. COMMENTS: Consistent with the [employer]'s Incidental Findings Committee white paper (J Am Eyal Radiol 2018): Any incidental renal lesion less than 1 cm or classified as too small to characterize, or any incidental cystic renal lesion characterized as simple-appearing, is likely benign. No follow-up imaging is recommended for these lesions per consensus recommendations based on imaging criteria. Laboratory Results WBC 7.50 10^3/uL (3.29-11.43) 05/08/23 05:47 RBC 4.61 10^6/uL (3.85-5.65) 05/08/23 05:47 Hgb 16.10 g/dL (11.27-16.99) 05/08/23 05:47 Hct 46.9 % (37-53) 05/08/23 05:47 MCV 101.7 fl (82-101) H 05/08/23 05:47 MCH 34.9 pg (27-33) H 05/08/23 05:47 MCHC 34.3 g/dL (30-55) 05/08/23 05:47 RDW 13.9 % (12.1-15.1) 05/08/23 05:47 Plt Count 186 10^3/cmm (157-399) 05/08/23 05:47 MPV 10.4 fL (7.4-10.4) 05/08/23 05:47 Neut % (Auto) 68.2 % 05/08/23 05:47 Lymph % (Auto) 19.9 % 05/08/23 05:47 [place] % (Auto) 9.5 % 05/08/23 05:47 Eos % (Auto) 1.7 % 05/08/23 05:47 Baso % (Auto) 0.4 % 05/08/23 05:47 Neut # (Auto) 5.12 10^3/uL (1.8-7.7) 05/08/23 05:47 Lymph # (Auto) 1.5 10^3/uL (0.8-4.8) 05/08/23 05:47 [place] # (Auto) 0.7 10^3/uL (0.2-0.9) 05/08/23 05:47 Eos # (Auto) 0.1 10^3/uL (0.0-0.8) 05/08/23 05:47 Baso # (Auto) 0.0 10^3/uL (0.0-0.1) 05/08/23 05:47 Nucleated RBC % (auto) 0 % 05/08/23 05:47 Nucleated RBCs # 0.0 /100WBC 05/08/23 05:47 PT 17.70 SECONDS (12.1-14.9) H 05/08/23 05:47 INR 1.41 (0.8-1.2) H 05/08/23 05:47 Sodium 140 mmol/L (136-145) 05/08/23 05:47 Potassium 3.7 mmol/L (3.5-5.1) 05/08/23 05:47 Chloride 105 mmol/L (98-107) 05/08/23 05:47 Carbon Dioxide 25 mmol/L (22-29) 05/08/23 05:47 Anion Gap 13.7 (5-19) 05/08/23 05:47 BUN 11 mg/dL (8-23) 05/08/23 05:47 Creatinine 1.2 mg/dL (0.7-1.2) 05/08/23 05:47 GFR Calculation Not Reportable 05/08/23 05:47 Glucose 119 mg/dL (65-115) H 05/08/23 05:47 Calculated Osmolality 291 mOsm/kg (285-295) 05/08/23 05:47 Calcium 9.4 mg/dL (8.5-10.5) 05/08/23 05:47 Total Bilirubin 1.3 mg/dL (0.15-1.2) H 05/08/23 05:47 AST 17 U/L (0-40) 05/08/23 05:47 ALT 10 U/L (0-41) 05/08/23 05:47 Alkaline Phosphatase 95 U/L (40-130) 05/08/23 05:47 Troponin T Baseline 12 ng/L (0-15) 05/08/23 05:47 Troponin T 120 Minute 11.06 ng/L (0-15) 05/08/23 07:39 Delta Troponin T -0.94 ABS# (0-10) L 05/08/23 07:39 Total Protein 7.8 g/dL (6.6-8.7) 05/08/23 05:47 Albumin 4.0 g/dL (3.5-5.2) 05/08/23 05:47 Globulin 3.8 g/dL (1.3-4.6) 05/08/23 05:47 All radiology interpretation(s) finalized by discharge Discharge Plan Discharge Patient Disposition: Home Clinical Impression: Dyspnea, Benign essential HTN, History of atrial fibrillation Condition: Stable Prescriptions: No Action aspirin 81 mg Tablet,Delayed Release (Dr/Ec) 81 mg PO QAM vitamin E 268 mg (400 unit) Capsule 268 mg PO DAILY apixaban 5 mg tablet 5 mg PO BID Qty: 180 0RF metoprolol succinate 25 mg tablet extended release 24 hr 25 mg PO DAILY amlodipine 2.5 mg tablet 2.5 mg PO DAILY Qty: 30 0RF pantoprazole 40 mg Tablet,Delayed Release (Dr/Ec) 40 mg PO DAILY Qty: 30 0RF Discharge Orders: Discharge ED (Routine); Ordered 05/08/23 Ordered By: Glynn David Referrals: Denis Nowak MD [Primary Care Provider] - Patient Instructions: Opioid Safety, Pain Management Activity Restrictions/Additional Instructions: Thank you for choosing [facility] for your healthcare needs today. Please realize this is an emergency room and that we are providing you with a medical screening exam and this may not be complete and all inclusive of all the testing and or work up that you may need to determine your ailment or severity of your illness. It is very important that you follow up as instructed or that you return to the Emergency Department should you have concerns or if your condition changes or worsens in any way. You are seen today for complaint shortness of breath EKG cardiac enzymes are negative chest x-ray and CTA of your chest were all normal for any acute pathologic findings in the chest. 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 Coding Level of Care Code ED Special Investigation Unit Investigator for Victor M Hale
[2023-05-08 06:05] LABS: INR 1.41 (0.8-1.2)
[2023-05-08 06:14] LABS: Troponin(5th) Baseline 12 ng/L (0-15)
[2023-05-08 06:16] LABS: Alanine Aminotransferase 10 U/L (0-41); Alkaline Phosphatase 95 U/L (40-130); Anion Gap 13.7 (5-19); Aspartate Amino Transferase 17 U/L (0-40); Blood Urea Nitrogen 11 mg/dL (8-23); Calcium 9.4 mg/dL (8.5-10.5); Carbon Dioxide 25 mmol/L (22-29); Chloride 105 mmol/L (98-107); Creatinine Clr Calc Pharmacy 50.1195; Globulin 3.8 g/dL (1.3-4.6); Glucose 119 mg/dL (65-115); Osmolality Calculated 291 mOsm/kg (285-295); Potassium 3.7 mmol/L (3.5-5.1); Sodium 140 mmol/L (136-145); Total Bilirubin 1.3 mg/dL (0.15-1.2); Total Protein 7.8 g/dL (6.6-8.7)
--- NOTE | 2023-05-08 06:28 | CTR_ITS ---
PROCEDURE INFORMATION: Exam: CTA Chest With Contrast Exam date and time: 05/08/2023 6:50 AM Age: 82 years old Clinical indication: Other: SOB, back pain; Prior surgery; Surgery date: 6+ months; Surgery type: Mariel; Additional info: Possible aortic dissection TECHNIQUE: Imaging protocol: Computed tomographic angiography of the chest with contrast. Exam focused on the arteries. 3D rendering (Not supervised by radiologist): MIP and/or 3D reconstructed images were created by the technologist. Radiation optimization: All CT scans at this facility use at least one of these dose optimization techniques: automated exposure control; mA and/or kV adjustment per patient size (includes targeted exams where dose is matched to clinical indication); or iterative reconstruction. Contrast material: OMNI 350; Contrast volume: 100 ml; Contrast route: INTRAVENOUS (IV); COMPARISON: CT angio chest PE protcl [id number] 09/11/2022 12:21 AM RADIATION DOSE METRICS: Total DLP (mGy-cm): 1429.19 FINDINGS: Pulmonary arteries: Normal. No pulmonary emboli. Aorta: Unremarkable. No aortic aneurysm. No aortic dissection. Lungs: Stable 10 mm right upper lobe pulmonary nodule (7-38) with smaller additional nodule seen in the right middle lobe and right lower lobe. Pleural spaces: Small bilateral pleural effusions. Heart: Unremarkable. No cardiomegaly. No pericardial effusion. Coronary arteries: Coronary artery calcifications. Lymph nodes: Moderate central adenopathy is stable. The largest lymph node remains 11 mm in short axis dimension. Bones/joints: Unremarkable. No acute fracture. Soft tissues: Unremarkable. PROCEDURE INFORMATION: Exam: CT Abdomen And Pelvis With Contrast Exam date and time: 05/08/2023 6:50 AM Age: 82 years old Clinical indication: Other: SOB, back pain; Prior surgery; Surgery date: 6+ months; Surgery type: Mariel; Additional info: Possible aortic dissection TECHNIQUE: Imaging protocol: Computed tomography of the abdomen and pelvis with contrast. Radiation optimization: All CT scans at this facility use at least one of these dose optimization techniques: automated exposure control; mA and/or kV adjustment per patient size (includes targeted exams where dose is matched to clinical indication); or iterative reconstruction. Contrast material: OMNI 350; Contrast volume: 100 ml; Contrast route: INTRAVENOUS (IV); COMPARISON: CT abdomen pelvis w con* [id number] 04/19/2023 8:15 AM RADIATION DOSE METRICS: Total DLP (mGy-cm): 1429.19 FINDINGS: Liver: 10 mm right hepatic cyst or hemangioma. Gallbladder and bile ducts: Cholecystectomy. Pancreas: Normal. No ductal dilation. Spleen: Normal. No splenomegaly. Adrenal glands: Normal. No mass. Kidneys and ureters: Bilateral renal cysts. The largest contains faint dependent calcifications. Nonobstructing right renal calculi. Stomach and bowel: Diverticulosis without evidence of diverticulitis. Small duodenal diverticulum. Appendix: No evidence of appendicitis. Intraperitoneal space: Unremarkable. No free air. No significant fluid collection. Vasculature: Unremarkable. No abdominal aortic aneurysm. Lymph nodes: Unremarkable. No enlarged lymph nodes. Urinary bladder: Unremarkable as visualized. Reproductive: Unremarkable as visualized. Bones/joints: Unremarkable. No acute fracture. Soft tissues: Unremarkable. CT/CT angio chest w abd pel w con IMPRESSION: 1. Stable scattered pulmonary nodules, the largest 10 mm. 2. Additional follow-up chest CT in 12 additional months recommended. 3. No vascular abnormality. IMPRESSION: No acute findings. COMMENTS: Consistent with the [employer]'s Incidental Findings Committee white paper (J Am Eyal Radiol 2018): Any incidental renal lesion less than 1 cm or classified as too small to characterize, or any incidental cystic renal lesion characterized as simple-appearing, is likely benign. No follow-up imaging is recommended for these lesions per consensus recommendations based on imaging criteria.
[2023-05-08] MEDS: hyDRALAzine 20 mg/mL INJ 1 mL 10 MG IVP (06:39)
[2023-05-08] MEDS: iohexol 350 mg/mL 500 mL Btl (per mL) IV (07:03)
--- NOTE | 2023-05-08 07:38 | ECG_ITS ---
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 Measurements Intervals [place] Rate: 89 P: 0 HI: 0 QRS: 10 QRSD: 96 T: 43 QT: 379 QTc: 461 Interpretive Statements ATRIAL FIBRILLATION ABNORMAL RHYTHM ECG Compared to ECG 05/08/2023 05:41:03 ST (T wave) deviation no longer present Electronically Signed On 05-08-2023 21:14:00 FINISH FILER by Kavon Cordoba M.D. [email or web address]
[2023-05-08 08:05] LABS: Troponin 5 2HR 11.06 ng/L (0-15)
[2023-05-08 08:11] LABS: Troponin 5 2HR Delta -0.94 ABS# (0-10)
--- NOTE | 2023-05-08 09:31 | DCPLANNER ---
A message was sent to pulmonology on 05/08/23 at 0932. [facility] to contact patient for appt.
== END 2023-05-08 09:37 | disposition home or self-care (01) ==
PROVIDERS: Emergency Medicine; Emergency Provider Family Medicine; PCP Internal Medicine
DX: I10 Essential (primary) hypertension (principal); R06.00 Dyspnea, unspecified; I48.91 Unspecified atrial fibrillation; Z79.82 Long term (current) use of aspirin; E78.5 Hyperlipidemia, unspecified; I25.10 Atherosclerotic heart disease of native coronary artery without angina pectoris
CPT/HCPCS: 36415; 71045; 71275; 74177; 80053; 84484; 85025; 85610; 93005; 96374; 99285; J0360; Q9967

== ENCOUNTER 2023-05-20 07:00 | Inpatient (IN) | payer MEDICARE, MEDICAID, SELFPAY ==
[2023-05-20] VITALS (17 sets, daily range): BP systolic 127–182; BP diastolic 73–122; PULSE 66–114; RESP 16–26; TEMP 36.4–37.1; O2SAT 93–100; BMI 30.4; BMI 25.0
--- NOTE | 2023-05-20 07:03 | W.ED.SOB ---
HPI - SOB/Dyspnea General: Chief Complaint: Shortness of Breath/Dyspnea Stated Complaint: Resp Distress Time Seen by Provider: 05/20/23 07:03 Source: patient Mode of arrival: EMS History of Present Illness: HPI Narrative: 82-year-old male presents emergency room with complaint of respiratory distress. He is short of breath with activity. He denies any chest pain. He states has been intermittent for the last couple of weeks he does not notice any orthopnea or swelling in his legs but with activity he has increasing shortness of breath. Patient has a known history of atrial fibrillation he is on Eliquis and metoprolol. He has not had any recent changes in medications run out of his medicines or missed any doses. No fever sweats or chills or productive cough MD elicited complaint: shortness of breath Pertinent past history: other Timing: constant Exacerbating factors: exertion Relieving factors: rest Known history of: other (Atrial fibrillation) Associated symptoms: Reports palpitations; Deny abdominal pain, chest congestion, chest pain, cough, diaphoresis, dizziness, extremity pain, fever(s), hemoptysis, lightheadedness, myalgias, nausea, orthopnea, paresthesias, polydipsia, polyuria, rash, sense of impending doom, syncope or vomiting Treatment prior to arrival: none Review of Systems Const: Denies: fever(s), chills or diaphoresis Card: Reports: palpitations, irregular heart rhythm and dyspnea on exertion; Denies: chest pain, edema, swelling of feet/ankles, lightheadedness, syncope or orthopnea Resp: Reports: dyspnea; Denies: hemoptysis or chest congestion GI: Denies: abdominal pain, nausea or vomiting : Denies: dysuria, urinary frequency or urinary urgency Musc: Denies: neck pain, back pain or extremity pain Skin/Breast: Denies: rash Neuro: Denies: dizziness Endo: Denies: polyuria or polydipsia PFSH ED PFSH: Medical History Left ureteral calculus Renal mass Calculus of kidney with calculus of ureter History of atrial fibrillation Dyslipidemia (high LDL; low HDL) Chronic episodic atrial fibrillation Benign essential HTN Atherosclerotic heart disease of [place] coronary artery without angina pectoris Insomnia History of colon polyps Lumbar disc disease GERD (gastroesophageal reflux disease) Fibromyalgia Surgical History History of cardiac cath History of cholecystectomy History of shoulder surgery History of colonoscopy Family History Brother No problems noted. Father , at age 93 Dementia Parkinson disease Mother , at age 75 No problems noted. Denies family history of Diabetes CAD (coronary artery disease) Clotting disorder Chronic kidney disease (CKD) Suicide Anesthesia complication Bleeding disorder Lung disease Cancer Stroke Social History Smoking and tobacco/nicotine status: never used tobacco/nicotine Alcohol intake: current Alcohol intake frequency: holidays/special occasions only Substance/Drug Use: never Housing: House Marital status: / Current occupational status: retired Physical Exam Const: COMMON NORMALS: no acute distress GENERAL APPEARANCE: cooperative and comfortable ORIENTATION/CONSCIOUSNESS: Yes awake, Yes oriented to person, Yes oriented to place and Yes oriented to time HENMT: COMMON NORMALS: normocephalic, atraumatic and hearing grossly normal bilaterally HEAD & SCALP: normocephalic and atraumatic Resp: COMMON NORMALS: normal respiratory effort, No retractions and No use of accessory muscles AUSCULTATION: crackles Cardio: COMMON NORMALS: regular rate, regular rhythm and No murmurs present (Cardio) RATE: regular rate and tachycardic RHYTHM: regular rhythm and abnormal rhythm irregularly irregular GI: COMMON NORMALS: Soft to palpation and No hepatosplenomegaly present AUSCULTATION: Yes normoactive bowel sounds PALPATION: Yes Soft to palpation, No Tenderness to palpation present (GI), No Guarding due to palpation present (GI) and Yes No hepatosplenomegaly present Extremity: COMMON NORMALS: normal to inspection, capillary refill normal, no clubbing, cyanosis or edema, no calf tenderness and no pedal edema Neuro: SENSORIUM/ORIENTATION: Yes oriented to person, Yes oriented to place and Yes oriented to time Skin: COMMON NORMALS: no rashes or lesions noted GENERAL SKIN EXAM: no rashes or lesions noted Course Vital Signs: Vital signs: Vital Signs Temperature 98.7 F 05/20/23 07:04 Pulse Rate 73 05/20/23 10:19 Respiratory Rate 18 05/20/23 07:53 Blood Pressure 150/100 05/20/23 10:19 Pulse Oximetry 96 05/20/23 10:19 Oxygen Delivery Me thod Room Air 05/20/23 10:19 MDM - SOB/Dyspnea Medical Decision Making Patient presents with intermittent A-fib with RVR we attempted to give small IV push and an extra dose of oral to control rate. He continued to have A-fib with RVR chest x-ray shows decompensated congestive heart failure. He is symptomatically atrial fibrillation the initial doses of IV push metoprolol and extra dose of p.o. did not control his rate we put him on Cardizem on a drip and his rate improved quite quickly and he is feeling better. Discussed with hospitalist will admit for symptomatic A-fib with RVR and decompensated congestive heart failure. Orders written Medical Records I reviewed the patient's medical records. Lab Data I reviewed the patient's lab results. 05/20/23 07:34 05/20/23 07:34 Labs/Radiology: Radiology Impressions Chest X-Ray 05/20/23 07:04 IMPRESSION: 1. No acute findings. 2. No significant change. Laboratory Results WBC 7.29 10^3/uL (3.29-11.43) 05/20/23 07:34 RBC 4.89 10^6/uL (3.85-5.65) 05/20/23 07:34 Hgb 16.80 g/dL (11.27-16.99) 05/20/23 07:34 Hct 50.6 % (37-53) 05/20/23 07:34 MCV 103.5 fl (82-101) H 05/20/23 07:34 MCH 34.4 pg (27-33) H 05/20/23 07:34 MCHC 33.2 g/dL (30-55) 05/20/23 07:34 RDW 14.7 % (12.1-15.1) 05/20/23 07:34 Plt Count 222 10^3/cmm (157-399) 05/20/23 07:34 MPV 10.3 fL (7.4-10.4) 05/20/23 07:34 Neut % (Auto) 74.1 % 05/20/23 07:34 Lymph % (Auto) 15.9 % 05/20/23 07:34 [place] % (Auto) 8.0 % 05/20/23 07:34 Eos % (Auto) 1.0 % 05/20/23 07:34 Baso % (Auto) 0.5 % 05/20/23 07:34 Neut # (Auto) 5.40 10^3/uL (1.8-7.7) 05/20/23 07:34 Lymph # (Auto) 1.2 10^3/uL (0.8-4.8) 05/20/23 07:34 [place] # (Auto) 0.6 10^3/uL (0.2-0.9) 05/20/23 07:34 Eos # (Auto) 0.1 10^3/uL (0.0-0.8) 05/20/23 07:34 Baso # (Auto) 0.0 10^3/uL (0.0-0.1) 05/20/23 07:34 Nucleated RBC % (auto) 0 % 05/20/23 07:34 Nucleated RBCs # 0.0 /100WBC 05/20/23 07:34 Specimen Type Arterial 05/20/23 07:23 Sample Site Radial, left 05/20/23 07:23 ABG pH 7.41 (7.35-7.45) 05/20/23 07:23 ABG pCO2 35.0 mmHg (35-45) 05/20/23 07:23 ABG pO2 61.4 mmHg (80.0-100.0) L 05/20/23 07:23 ABG PO2/FiO2 Ratio 0 05/20/23 07:23 ABG HCO3 22.3 mmol/L (22-26) 05/20/23 07:23 ABG O2 Saturation 92.0 05/20/23 07:23 ABG Base Excess -1.6 mmol/L (-2.0-2.0) 05/20/23 07:23 Yousuf Test Pos 05/20/23 07:23 A-a O2 Gradient 5.8 mmHg (5-10) 05/20/23 07:23 Hematocrit 49.6 % (42-52) 05/20/23 07:23 Hgb O2 Saturation 90.4 % (95-100) L 05/20/23 07:23 Carboxyhemoglobin 1.0 %THgb (0.4-20.1) 05/20/23 07:23 Methemoglobin 0.7 % (0.4-1.5) 05/20/23 07:23 Total Hemoglobin 16.2 g/dL (14-18) 05/20/23 07:23 Sodium 141.0 mmol/L (131-143) 05/20/23 07:23 Potassium 4.5 mmol/L (3.5-5.0) 05/20/23 07:23 Glucose 116.0 mg/dL (70-115) H 05/20/23 07:23 Ionized Calcium 1.2 mmol/L (1.1-1.4) 05/20/23 07:23 O2 Delivery Device Room air 05/20/23 07:23 FiO2 21.0 % 05/20/23 07:23 Hydraulic Barker Operator ID [place] 05/20/23 07:23 Sodium 139 mmol/L (136-145) 05/20/23 07:34 Potassium 5.0 mmol/L (3.5-5.1) 05/20/23 07:34 Chloride 103 mmol/L (98-107) 05/20/23 07:34 Carbon Dioxide 23 mmol/L (22-29) 05/20/23 07:34 Anion Gap 18.0 (5-19) 05/20/23 07:34 BUN 10 mg/dL (8-23) 05/20/23 07:34 Creatinine 1.1 mg/dL (0.7-1.2) 05/20/23 07:34 GFR Calculation Not Reportable 05/20/23 07:34 Glucose 112 mg/dL (65-115) 05/20/23 07:34 Estimat Average Glucose 100 05/20/23 07:34 Hemoglobin A1c 5.1 % (4.0-6.0) 05/20/23 07:34 Calculated Osmolality 288 mOsm/kg (285-295) 05/20/23 07:34 Calcium 9.1 mg/dL (8.5-10.5) 05/20/23 07:34 Total Bilirubin 0.8 mg/dL (0.15-1.2) 05/20/23 07:34 AST 17 U/L (0-40) 05/20/23 07:34 ALT 11 U/L (0-41) 05/20/23 07:34 Alkaline Phosphatase 94 U/L (40-130) 05/20/23 07:34 Troponin T Baseline 15 ng/L (0-15) 05/20/23 07:34 Troponin T 120 Minute 16.65 ng/L (0-15) H 05/20/23 09:33 Delta Troponin T 1.65 ABS# (0-10) 05/20/23 09:33 NT-Pro-B Natriuret Pep 1533 pg/mL (0-450) H 05/20/23 07:34 Total Protein 8.0 g/dL (6.6-8.7) 05/20/23 07:34 Albumin 4.0 g/dL (3.5-5.2) 05/20/23 07:34 Globulin 4.0 g/dL (1.3-4.6) 05/20/23 07:34 Triglycerides 62 mg/dL (0-150) 05/20/23 07:34 Cholesterol 192 mg/dL (0-200) 05/20/23 07:34 LDL Cholesterol, Calc 127 mg/dL (50-129) 05/20/23 07:34 HDL Cholesterol 53 mg/dL (60-100) L 05/20/23 07:34 LDL/HDL Ratio 2.40 RATIO (0.00-3.22) 05/20/23 07:34 Cholesterol/HDL Ratio 3.62 mg/dL (1.0-5.00) 05/20/23 07:34 Procalcitonin 0.08 ng/mL (0-0.5) 05/20/23 07:34 Procalcitonin 0.10 ng/mL (0-0.5) 05/20/23 07:34 TSH 8.91 uIU/mL (0.27-4.20) H 05/20/23 07:34 Urine Color Yellow (Yellow) 05/20/23 08:21 Urine Appearance Clear (CLEAR) 05/20/23 08:21 Urine pH 6 (5-7) 05/20/23 08:21 Ur Specific [place] 1.020 (1.005-1.030) 05/20/23 08:21 Urine Protein Neg (Negative) 05/20/23 08:21 Urine Glucose (UA) Norm (Normal) 05/20/23 08:21 Urine Ketones Negative (Negative) 05/20/23 08:21 Urine Blood Neg (Negative) 05/20/23 08:21 Urine Nitrate Negative (Negative) 05/20/23 08:21 Urine Bilirubin Neg (Negative) 05/20/23 08:21 Urine Urobilinogen Norm mg/dL (Negative) 05/20/23 08:21 Ur Leukocyte Esterase Negative (Negative) 05/20/23 08:21 All radiology interpretation(s) finalized by discharge Discharge Plan Discharge Patient Disposition: Admitted As Inpatient Clinical Impression: A-fib, Congestive heart failure Condition: Stable Prescriptions: No Action aspirin 81 mg Tablet,Delayed Release (Dr/Ec) 81 mg PO QAM vitamin E 268 mg (400 unit) Capsule 268 mg PO QAM losartan 50 mg tablet 50 mg PO QAM apixaban 5 mg tablet 5 mg PO QAM Referrals: Denis Nowak MD [Primary Care Provider] - Coding Level of Care Code ED Dentistry Teacher for Victor M Hale
--- NOTE | 2023-05-20 07:04 | ECG_ITS ---
[facility] Test Date: 2023-05-20 Pat Name: David Orozco Department: Room: Gender: Male Medical Records Tech: : 1940 Requested By: Glynn Stephen Order Number: [id number] Jessica MD: Kavon Cordoba M.D. Measurements Intervals [place] Rate: 111 P: 0 CA: 0 QRS: 26 QRSD: 134 T: -17 QT: 363 QTc: 494 Interpretive Statements ATRIAL FIBRILLATION WITH RAPID VENTRICULAR RESPONSE INTRAVENTRICULAR CONDUCTION DELAY [130+ ms QRS DURATION] ANTERIOR MYOCARDIAL INFARCTION , POSSIBLY ACUTE [40+ ms Q WAVE AND/OR ST/T ABNORMALITY IN V3/V4] ACUTE IN Compared to ECG 05/08/2023 07:27:07 Intraventricular conduction delay now present Myocardial infarct finding now present Electronically Signed On 05-20-2023 23:04:06 CDT by Kavon Cordoba M.D. [id number]
--- NOTE | 2023-05-20 07:04 | XRR_ITS ---
PROCEDURE INFORMATION: Exam: XR Chest Exam date and time: 05/20/2023 7:24 AM Age: 82 years old Clinical indication: Dyspnea; Additional info: Dyspnea/cough TECHNIQUE: Imaging protocol: Radiologic exam of the chest. Views: 1 view. COMPARISON: CT angio chest w abd pel w con 05/08/2023 6:50 AM FINDINGS: Lungs: Moderate stable parenchymal fibrosis unchanged since 05/08/2023. Pleural spaces: Unremarkable. No pleural effusion. No pneumothorax. Heart/Mediastinum: See Vasculature finding. Vasculature: Mild cardiomegaly and uncoiling of the thoracic aorta accentuated by the AP positioning. Bones/joints: Unremarkable. XR/XR chest 1V portable [id number] IMPRESSION: 1. No acute findings. 2. No significant change.
--- NOTE | 2023-05-20 07:22 | ECG_ITS ---
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 Measurements Intervals [place] Rate: 94 P: 0 NE: 0 QRS: 48 QRSD: 141 T: 61 QT: 376 QTc: 471 Interpretive Statements ATRIAL FIBRILLATION INTRAVENTRICULAR CONDUCTION DELAY [130+ ms QRS DURATION] Compared to ECG 05/20/2023 06:13:22 Myocardial infarct finding no longer present Electronically Signed On 05-20-2023 23:18:41 CDT by Kavon Cordoba M.D. [id number]
--- NOTE | 2023-05-20 07:33 | PC.PHAR ---
Addendum entered by Ani Cabrera 05/20/23 08:47: called [facility] states they last filled losartan 50mg daily on 03/20/23 30d/s no refills-has rx on hold from for amlodipine 2.5mg daily states last time filled 03/20/23 30d/s no refills-pantoprazole 40mg daily 03/20/23 30d/s no refills-metoprolol er succinate 25mg bid last filled 02/10/23 90d/s no refills-eliquis 5mg bid filled 02/10/23 90d/s no refills-levothyroxine 25mcg daily filled 10/25/22 90d/s no refills-states they had a rx that was closed out from a er dr for lasix 40mg one tab daily #5 with one refills but states it was closed out- Original Note: pt states he takes care of his own medications-pt states he is only taking 4 medications when he remembers states he tries to remember everyday-pt states he takes his apixaban 5mg one tab in the am ext shows last filled 02/10/23 90d/s 5mg bid-pt states he thinks his blood pressure medication he is taking is losartan 50mg daily ext shows last filled 03/20/23 30d/s-pt states he also takes a vitamin e and aspirin 81mg in the am-ext shows amlodipine 5mg takes 1/2 (2.5mg) po daily ext shows last filled 03/20/23 30d/s-metoprolol succinate er 25mg bid filled 02/10/23 90d/s-pantoprazole 40mg daily filled 03/20/23 30d/s-levothyroxine 25mcg po daily filled 10/25/22 90d/s-and vitamin b12 1000mcg q30d filled 09/16/22 90d/s-
[2023-05-20 07:34] LABS: ABG PH Result 7.41 (7.35-7.45); Alveolar-Arterial Oxygen Gradi 5.8 mmHg (5-10); Arterial Blood Gas Hematocrit 49.6 % (42-52); Base Excess ABG -1.6 mmol/L (-2.0-2.0); Blood Gas Allen Test Pos; Blood Gas Operator Identificat WALCI; Blood Gas Sample Site Radial, left; Blood Gas Sample Type Arterial; HCO3 ABG 22.3 mmol/L (22-26); HGB O2 Sat 90.4 % (95-100); Ionized Calcium Level - ABG 1.2 mmol/L (1.1-1.4); Methemoglobin 0.7 % (0.4-1.5); Oxygen Device ROOM AIR; PO2 ABG 61.4 mmHg (80.0-100.0); PO2 FiO2 Ratio Arterial Blood 0; Potassium Level - ABG 4.5 mmol/L (3.5-5.0); Total Hemoglobin 16.2 g/dL (14-18)
[2023-05-20] MEDS: FUROsemide 10 mg/mL SDV 4mL 40 MG IVP ×2 (07:41→19:45)
[2023-05-20] MEDS: metoprolol tartrate 25 mg Tablet PO (07:41)
[2023-05-20] MEDS: metoprolol tartrate 1 mg/1 mL SDV 5 mL 2.5 MG IVP (07:41)
[2023-05-20 07:44] LABS: Basophils % 0.5 %; Eosinophils # 0.1 10^3/uL (0.0-0.8); Hematocrit 50.6 % (37-53); Lymphocytes # 1.2 10^3/uL (0.8-4.8); Lymphocytes % 15.9 %; Mean Corpuscular HGB Conc 33.2 g/dL (30-55); Mean Corpuscular Hemoglobin 34.4 pg (27-33); Mean Corpuscular Volume 103.5 fl (82-101); Mean Platelet Volume 10.3 fL (7.4-10.4); Monocytes # 0.6 10^3/uL (0.2-0.9); Neutrophils % 74.1 %; Nucleated Red Blood Cells % 0 %; Platelet Count 222 10^3/cmm (157-399); Red Blood Count 4.89 10^6/uL (3.85-5.65); Red Cell Distribution Width 14.7 % (12.1-15.1); White Blood Count 7.29 10^3/uL (3.29-11.43)
[2023-05-20 08:18] LABS: Troponin(5th) Baseline 15 ng/L (0-15)
[2023-05-20 08:25] LABS: NT Pro B Type Natriuretic Pept 1533 pg/mL (0-450); Procalcitonin 0.08 ng/mL (0-0.5)
[2023-05-20] MEDS: dilTIAZem 5 mg/mL SDV 5 mL 10 MG IVP (08:31)
[2023-05-20 08:36] LABS: Alanine Aminotransferase 11 U/L (0-41); Alkaline Phosphatase 94 U/L (40-130); Aspartate Amino Transferase 17 U/L (0-40); Blood Urea Nitrogen 10 mg/dL (8-23); Calcium 9.1 mg/dL (8.5-10.5); Carbon Dioxide 23 mmol/L (22-29); Chloride 103 mmol/L (98-107); Creatinine Clr Calc Pharmacy 54.6758; Glucose 112 mg/dL (65-115); Osmolality Calculated 288 mOsm/kg (285-295); Sodium 139 mmol/L (136-145); Total Bilirubin 0.8 mg/dL (0.15-1.2)
[2023-05-20] MEDS: dilTIAZem 100 MG in sodium chloride 0.9% (add-van) 100 ML IV (08:37)
[2023-05-20 08:38] LABS: Add Urine Microscopic? NO; Charge for UA Resulting for Rev
[2023-05-20 08:51] LABS: Urine Appearance Clear (CLEAR); Urine Color Yellow (Yellow); pH Urine 6 (5-7)
[2023-05-20 08:52] LABS: Bilirubin Urine Neg (Negative); Blood Urine Neg (Negative); Glucose Urine UA Norm (Normal); Ketones Urine Negative (Negative); Leukocyte Esterase Urine Negative (Negative); Nitrate Urine Negative (Negative); Protein Urine Neg (Negative); Urobilinogen Urine Norm (Negative)
--- NOTE | 2023-05-20 09:38 | P.HP_ITS ---
Providers/Chief Complaint 2 Primary Care Provider: Denis Nowak MD Chief Complaint: Resp Distress History of Present Illness David Orozco is a 82 year old male With history of chronic episodic atrial fibrillation, colonic polyps, hypertension, renal mass, atherosclerotic heart disease, dyslipidemia, GERD, fibromyalgia, kidney stone presented to the hospital today for complaint of shortness of breath. He denies any leg swelling, orthopnea, does not use extra pillows to sleep, denies any heart racing. Says he does have a history of A-fib from last 3 years and is currently on Eliquis. Dr. Cordoba is his earth science professor. Does not remember when was the last time he saw him. Dr. Nowak is his primary care doctor. Patient denies any other symptoms right now except shortness of breath. He has had COVID before. Denies nausea vomiting diarrhea abdominal pain, chest pain, recent ill contacts. Previous records indicated that he was on metoprolol at home however I do not see that on his home medication list at this time. Medications/Allergies Home Medications Medication Instructions Recorded Confirmed Last Taken Type aspirin 81 mg tablet,delayed 81 mg PO QAM 05/26/20 05/20/23 05/07/23 History release vitamin E 268 mg (400 unit) capsule 268 mg PO QAM 02/09/23 05/20/23 05/07/23 History apixaban 5 mg tablet 5 mg PO QAM 05/20/23 05/20/23 Unknown History losartan 50 mg tablet 50 mg PO QAM 05/20/23 05/20/23 Unknown History Allergies Allergy/AdvReac Type Severity Reaction Status Date / Time No Known Allergies Allergy Verified 05/20/23 07:25 PFSH Acute 2 PFSH: Medical History Left ureteral calculus Renal mass Calculus of kidney with calculus of ureter History of atrial fibrillation Dyslipidemia (high LDL; low HDL) Chronic episodic atrial fibrillation Benign essential HTN Atherosclerotic heart disease of [place] coronary artery without angina pectoris Insomnia History of colon polyps Lumbar disc disease GERD (gastroesophageal reflux disease) Fibromyalgia Surgical History History of cardiac cath History of cholecystectomy History of shoulder surgery History of colonoscopy Family History Brother No problems noted. Father , at age 93 Dementia Parkinson disease Mother , at age 75 No problems noted. Denies family history of Diabetes CAD (coronary artery disease) Clotting disorder Chronic kidney disease (CKD) Suicide Anesthesia complication Bleeding disorder Lung disease Cancer Stroke Social History Smoking and tobacco/nicotine status: never used tobacco/nicotine Alcohol intake: current Alcohol intake frequency: holidays/special occasions only Substance/Drug Use: never Housing: House Marital status: / Current occupational status: retired Vitals/I&O/Wt Last Vital Signs Temp 98.7 F 05/20/23 07:04 Pulse 78 05/20/23 08:39 Resp 18 05/20/23 07:53 BP 133/73 05/20/23 08:39 Pulse Ox 93 05/20/23 08:39 O2 Del Method Room Air 05/20/23 08:39 Weight last 48 hrs Weight 90.718 kg Physical Exam 2 Narrative: General: Alert oriented x3, patient seen laying in bed appearing comfortable at this time., Poor historian HEENT: Normocephalic, atraumatic, EOMI, b room air Cardio: Irregularly irregular, tachycardic, normal S1-S2 Respiratory: Clear to auscultation bilaterally no wheezes no rhonchi no crackles GI: Abdomen soft, nontender, nondistended, bowel sounds + Behavior: Appropriate and cooperative Extremities: No edema bilateral lower extremities Data 05/20/23 07:34 05/20/23 07:34 A&P Assessment and plan (1) Benign essential HTN: (2) Congestive heart failure: (3) A-fib: Qualifiers: Atrial fibrillation type: longstanding persistent Qualified Code(s): I 48.11 - Longstanding persistent atrial fibrillation (4) Chronic episodic atrial fibrillation: (5) History of atrial fibrillation: (6) Bradycardia: (7) Dyslipidemia (high LDL; low HDL): (8) Hypothyroid: Qualifiers: Hypothyroidism type: acquired Qualified Code(s): E03.9 - Hypothyroidism, unspecified (9) B12 deficiency: Plan #Shortness of breath, most likely secondary to congestive heart failure #History of bradycardia #Atrial fibrillation with RVR, carries a history of paroxysmal atrial fibrillation # History of COVID infection in the past #Hypertension #Atherosclerotic heart disease #Dyslipidemia #GERD #Fibromyalgia #10 Millimeter pulmonary nodule ? Previously was on metoprolol at home however no longer see that on his medication list at this time. Patient does have a history of bradycardia with first-degree AV block. He wore a Holter monitor in 2020 which showed frequent PACs associated bradycardia and lowest heart rate being 34. Patient may not be able to tolerate higher dose of metoprolol. We will have to monitor on telemetry at this time. ? He was given metoprolol IV push in the ER. Followed by oral metoprolol however remained tachycardic therefore Cardizem drip was started. - Last echo in 2022 showed EF 65 to 70%, grade 2 diastolic dysfunction, mild to moderate mitral valve regurgitation -Check TSH ? Continue Cardizem drip at this time. Convert to oral once rate controlled. ? Admit to cardiac stepdown unit ? Continue aspirin, Eliquis ? Hold losartan at this time ? Check echo ? Chest x-ray does show pulmonary vascular congestion and fluid in the fissure. ? Continue on Lasix 40 IV daily. First dose received in ER. ? Most recent stress test done March 20 showed normal EF and low probability for ischemia. Chest abdomen CT pelvis showed pulmonary nodules largest being 10 mm on . Patient to follow-up as an outpatient for this at this time. ? Patient will need Lasix at discharge Full code Cristian Attestations 2 Medical Necessity Statement*: Will cross greater than 2 midnight stay for management of atrial fibrillation with RVR and congestive heart failure exacerbation. Coding Level of Care Code Acute Code for Chg Fwd Diagnoses Benign essential HTN I10 Congestive heart failure I50.9 A-fib I48.11 Atrial fibrillation type: longstanding persistent Chronic episodic atrial fibrillation I48.20 History of atrial fibrillation Z86.79 Bradycardia R00.1 Dyslipidemia (high LDL; low HDL) E78.5 Acquired hypothyroidism E03.9 Hypothyroidism type: acquired B12 deficiency E53.8
[2023-05-20 10:08] LABS: Troponin 5 2HR 16.65 ng/L (0-15); Troponin 5 2HR Delta 1.65 ABS# (0-10)
[2023-05-20] MEDS: heparin 5,000 unit/mL INJ 1 mL 5000 UNIT SUBCUT (10:20)
[2023-05-20 10:24] LABS: Thyroid Stimulating Hormone 8.91 uIU/mL (0.27-4.20)
[2023-05-20 10:35] LABS: Chol HDL Ratio 3.62 mg/dL (1.0-5.00); Cholesterol 192 mg/dL (0-200); HDL Cholesterol 53 mg/dL (60-100); LDL Cholesterol Calculated 127 mg/dL (50-129); Triglycerides 62 mg/dL (0-150)
[2023-05-20 10:46] LABS: Estmated Average Glucose 100; Hemoglobin A1C 5.1 % (4.0-6.0)
[2023-05-20] MEDS: sodium chloride 0.9% 1,000 ML 75 ML IV (10:59)
--- NOTE | 2023-05-20 11:51 | ECG_ITS ---
[facility] Test Date: 2023-05-20 Pat Name: David Orozco Department: Room: Gender: Male Facilities Manager: : 1940 Requested By: Glynn Stephen Order Number: [id number] Jessica MD: Kavon Cordoba M.D. Measurements Intervals [place] Rate: 74 P: 0 [place]: 0 QRS: 29 QRSD: 85 T: 42 QT: 405 QTc: 452 Interpretive Statements ATRIAL FIBRILLATION ABNORMAL RHYTHM ECG Compared to ECG 05/20/2023 07:22:13 Intraventricular conduction delay no longer present Electronically Signed On 05-20-2023 23:21:12 CDT by Kavon Cordoba M.D. [id number]
[2023-05-20 14:09] LABS: Troponin 5 6HR 15.32 ng/L (0-15); Troponin 5 6HR Delta 0.32 ng/L (0-12)
[2023-05-20 14:58] LABS: Free T4 Free Thyroxine 1.13 ng/dL (0.82-1.77)
[2023-05-20 15:50] LABS: Vitamin B12 236 pg/mL (232-1245)
[2023-05-21] VITALS (13 sets, daily range): BP systolic 132–154; BP diastolic 89–107; PULSE 67–105; RESP 18–28; TEMP 36.4–37.3; O2SAT 94–98; BMI 26.8
[2023-05-21] MEDS: zolpidem 5 mg Tablet PO (00:14)
[2023-05-21 04:54] LABS: Basophils % 0.7 %; Eosinophils # 0.2 10^3/uL (0.0-0.8); Eosinophils % 3.5 %; Hematocrit 45.3 % (37-53); Lymphocytes # 1.6 10^3/uL (0.8-4.8); Lymphocytes % 27.4 %; Mean Corpuscular HGB Conc 33.6 g/dL (30-55); Mean Corpuscular Hemoglobin 34.6 pg (27-33); Mean Corpuscular Volume 103.2 fl (82-101); Mean Platelet Volume 10.5 fL (7.4-10.4); Monocytes # 0.8 10^3/uL (0.2-0.9); Monocytes % 14.1 %; Neutrophils # 3.11 10^3/uL (1.8-7.7); Nucleated Red Blood Cells % 0 %; Platelet Count 195 10^3/cmm (157-399); Red Blood Count 4.39 10^6/uL (3.85-5.65); Red Cell Distribution Width 14.4 % (12.1-15.1); White Blood Count 5.76 10^3/uL (3.29-11.43)
[2023-05-21 05:19] LABS: Anion Gap 17.6 (5-19); Blood Urea Nitrogen 16 mg/dL (8-23); Carbon Dioxide 25 mmol/L (22-29); Chloride 95 mmol/L (98-107); Creatinine Clr Calc Pharmacy 46.0037; Glucose 86 mg/dL (65-115); Osmolality Calculated 278 mOsm/kg (285-295); Potassium 3.6 mmol/L (3.5-5.1); Sodium 134 mmol/L (136-145)
[2023-05-21] MEDS: aspirin 81 mg EC Tablet PO (06:32)
[2023-05-21] MEDS: apixaban 5 mg Tablet PO (06:32)
[2023-05-21] MEDS: dilTIAZem 100 MG in sodium chloride 0.9% (add-van) 100 ML IV (06:36)
[2023-05-21] MEDS: metoprolol tartrate 25 mg Tablet 12.5 MG PO (10:30)
--- NOTE | 2023-05-21 14:21 | USCV_ITS ---
David Orozco Age: 82 Gender: M : 1940 Exam Date: 05/21/2023 17:02 Ordering Phys: Tasha Meadows MD Technologist: [place] [facility] [place]: chf,afib BP: 150 / 91 HR: 98 Rhythm: Atrial fibrillation Technical Quality: Adequate MEASUREMENTS (Male / Female) Normal Values 2D ECHO LVOT Diameter 2.0 cm LV Ejection Fraction MOD 2C 49.6 % LV Ejection Fraction 2C AL 53.4 % LA Diameter 4.7 cm Aorta at Sinotubular Diameter 2.6 cm M-MODE LA Ao Ratio MM 1.8 AV Cusp Separation MM 1.8 cm DOPPLER AV Peak Velocity 127.3 cm/s LVOT Peak Velocity 73.0 cm/s AV Area Cont Eq vti 1.8 cm squared AV Area Cont Eq pk 1.9 cm squared MV Peak Velocity 110.0 cm/s MV Area PHT 3.5 cm squared Mitral E to A Ratio 0.0 TV Peak Velocity 335.0 cm/s TR Peak Velocity 348.0 cm/s TR Peak Gradient 48.4 mmHg TV Peak E Velocity 97.0 cm/s Right Atrial Pressure 3.0 mmHg Pulmonary Artery Systolic Pressu 51.4 mmHg PV Peak Velocity 95.0 cm/s FINDINGS Left Ventricle Normal left ventricular size, systolic function and wall thickness, with no regional wall motion abnormalities. Rhythm precludes evaluation of diastolic function. Left ventricular ejection fraction is estimated at 55-60 %. Right Ventricle Normal right ventricular size and systolic function. Mild pulmonary hypertension, RVSP 51.4 mmHg. Right Atrium Mildly increased right atrial size. Left Atrium Moderately increased left atrial size. Mitral Valve Thickened mitral valve with moderate mitral annular calcification. There is at least moderate mitral regurgitation. The jet is directed toward the lateral atrial wall suggesting a defect in the anterior leaflet. Aortic Valve Structurally normal trileaflet aortic valve. Mild aortic valve regurgitation. Tricuspid Valve Structurally normal tricuspid valve. Mild tricuspid valve regurgitation. Pulmonic Valve Pulmonic valve not well visualized. Pericardium Normal pericardium without effusion. Aorta Normal ascending aorta dimension. IVC The inferior vena cava appears normal. CONCLUSIONS Normal left ventricular size, systolic function and wall thickness, with no regional wall motion abnormalities. Rhythm precludes evaluation of diastolic function. Left ventricular ejection fraction is estimated at 55-60 %. Normal right ventricular size and systolic function. Mild pulmonary hypertension, RVSP 51.4 mmHg. Mildly increased right atrial size. Moderately increased left atrial size. Thickened mitral valve with moderate mitral annular calcification. There is at least moderate mitral regurgitation. The jet is directed toward the lateral atrial wall suggesting a defect in the anterior leaflet. Structurally normal trileaflet aortic valve. Mild aortic valve regurgitation. Previous echo is September 2022. The atrial fibrillation is new as is the mild pulmonary hypertension. Otherwise, no change. Dr. Js Hendricks MD (Electronically Signed) Final Date: 22 May 2023 09:16 S
--- NOTE | 2023-05-21 14:22 | P.PN_ITS ---
Subjective 2 Subjective: Patient rate controlled since morning. Has been transition over to a beta- antoinette. Feels well. Echo is pending at this time. He is unable to tell me why he is on a beta- antoinette at home however records indicate that he was supposed to be on metoprolol apparently. I cannot find evidence in the chart to see when it was stopped or why it was stopped. Patient has not been to see the irrigation equipment remover in the recent few months and I see a few canceled appointments. Vitals/I&O/Wt Last Vital Signs Temp 97.5 F L 05/21/23 04:22 Pulse 72 05/21/23 09:15 Resp 18 05/21/23 09:15 BP 132/95 05/21/23 09:03 Pulse Ox 98 05/21/23 09:15 O2 Del Method Nasal Cannula 05/21/23 09:15 O2 Flow Rate 1 05/21/23 09:15 05/20/23 05/21/23 05/21/23 22:59 06:59 14:59 Intake Total 263.917 / 409.167 327.25 / 736.417 240 / 240 Output Total 500 / 500 925 / 1425 200 / 200 Balance -236.083 / -90.833 -597.75 / -688.583 40 / 40 Weight last 48 hrs Weight 80.031 kg Weight 74.843 kg Weight 90.718 kg Physical Exam 2 Narrative: General: Alert oriented x3, very poor historian HEENT: Normocephalic, atraumatic, EOMI, b room air Cardio: Regular rate rhythm, normal S1-S2 Respiratory: Clear to auscultation bilaterally no wheezes no rhonchi no crackles GI: Abdomen soft, nontender, nondistended, bowel sounds + Behavior: Appropriate and cooperative Extremities: No edema bilateral lower extremities Data 05/21/23 04:24 05/21/23 04:24 A&P Assessment and plan (1) Benign essential HTN: (2) Congestive heart failure: (3) A-fib: Qualifiers: Atrial fibrillation type: longstanding persistent Qualified Code(s): I 48.11 - Longstanding persistent atrial fibrillation (4) Chronic episodic atrial fibrillation: (5) History of atrial fibrillation: (6) Bradycardia: (7) Dyslipidemia (high LDL; low HDL): (8) Hypothyroid: Qualifiers: Hypothyroidism type: acquired Qualified Code(s): E03.9 - Hypothyroidism, unspecified (9) B12 deficiency: Plan #Shortness of breath, most likely secondary to congestive heart failure #History of bradycardia #Atrial fibrillation with RVR, carries a history of paroxysmal atrial fibrillation # History of COVID infection in the past #Hypertension #Atherosclerotic heart disease #Dyslipidemia #GERD #Fibromyalgia #10 Millimeter pulmonary nodule ? Previously was on metoprolol at home however no longer see that on his medication list at this time. Patient does have a history of bradycardia with first-degree AV block. He wore a Holter monitor in 2020 which showed frequent PACs associated bradycardia and lowest heart rate being 34. Patient may not be able to tolerate higher dose of metoprolol. We will have to monitor on telemetry at this time. ? He was given metoprolol IV push in the ER. Followed by oral metoprolol however remained tachycardic therefore Cardizem drip was started. Cardizem drip has been stopped at this time ? Started on metoprolol 12.5 twice daily. Continue to monitor on telemetry. ? Diurese patient with Lasix 40 IV daily. ? He will need Lasix at discharge along with potassium - Last echo in 2022 showed EF 65 to 70%, grade 2 diastolic dysfunction, mild to moderate mitral valve regurgitation. I repeated an echo. Awaiting results. -TSH elevated however free T4 normal range. Subclinical hypothyroidism. TSH 8.91. I would probably treat with levothyroxine 25 daily at this time. ? Admit to cardiac stepdown unit ? Continue aspirin, Eliquis ? Continue losartan ? Chest x-ray does show pulmonary vascular congestion and fluid in the fissure. ? Continue on Lasix 40 IV daily. First dose received in ER. ? Most recent stress test done March 20 showed normal EF and low probability for ischemia. Chest abdomen CT pelvis showed pulmonary nodules largest being 10 mm on . Patient to follow-up as an outpatient for this at this time. Full code Cristian Attestations 2 Medical Necessity Statement*: Beta-antoinette has been started. Patient has been monitored in telemetry. Echo pending. Diagnoses Benign essential HTN I10 Congestive heart failure I50.9 A-fib I48.11 Atrial fibrillation type: longstanding persistent Chronic episodic atrial fibrillation I48.20 History of atrial fibrillation Z86.79 Bradycardia R00.1 Dyslipidemia (high LDL; low HDL) E78.5 Acquired hypothyroidism E03.9 Hypothyroidism type: acquired B12 deficiency E53.8
[2023-05-21] MEDS: FUROsemide 10 mg/mL SDV 4mL 40 MG IVP (19:47)
--- NOTE | 2023-05-21 21:39 | PC.NURSE ---
Patient refusing to wear telemetry and refusing medications. Educated patient on need for vital sign and heart monitoring during hospital stay and the importance of medication compliance. Notified hospitalist, Dr. Thomas, of refusals.
[2023-05-22 03:08] VITALS: BP 145/97; PULSE 84; RESP 16; TEMP 36.6; O2SAT 95
[2023-05-22] MEDS: apixaban 5 mg Tablet PO (05:25)
[2023-05-22] MEDS: acetaminophen 325 mg Tablet 650 MG PO (05:25)
[2023-05-22] MEDS: aspirin 81 mg EC Tablet PO (05:25)
[2023-05-22 05:37] VITALS: PULSE 103
--- NOTE | 2023-05-22 09:29 | P.DS_ITS ---
Discharge Providers Date of Admission: 05/20/23 14:08 Date of Discharge: May 22, 2023 Attending Provider at Admission: Tasha Meadows MD Attending Provider at Discharge: Tasha Meadows MD Primary Care Provider: Denis Nowak MD Diagnoses at Discharge Discharge Diagnosis (1) Benign essential HTN: Status: Acute (2) Congestive heart failure: Status: Acute (3) A-fib: Status: Acute Qualifiers: Atrial fibrillation type: longstanding persistent Qualified Code(s): I48.11 - Longstanding persistent atrial fibrillation (4) Chronic episodic atrial fibrillation: Status: Acute (5) History of atrial fibrillation: Status: Acute (6) Bradycardia: Status: Acute (7) Dyslipidemia (high LDL; low HDL): Status: Acute (8) Hypothyroid: Status: Acute Qualifiers: Hypothyroidism type: acquired Qualified Code(s): E03.9 - Hypothyroidism, unspecified (9) B12 deficiency: Status: Acute Reason for Visit Reason for Visit: Resp Distress Hospital Course Hospital Course Admitted with A-fib with RVR. Apparently was on a beta-antoinette at home however not taking. Sees Dr. Cordoba as an outpatient. Initially patient was placed on a Cardizem drip however only required 2.5/h. He was transitioned over to metoprolol 25 twice daily and sent home on Toprol 25 daily. There is a questionable history of bradycardia in the past however there were no episodes of bradycardia on telemetry. From notes it is indicated that patient was still supposed to be on metoprolol. He is also missed his last few appointments with cardiology. Most likely secondary to underlying dementia. He states he just forgets and we should write down his appointment down for him. Sister will be notified regarding appointment as per her request at this time. Patient will be discharged home on Toprol 25 daily. He will also be started on Lasix 20 with 80 potassium. Patient did have diastolic CHF exacerbation during stay as well. Echo was done which supported the above. Patient discharged home to follow-up with PCP and cardiology. Of note patient does have a 10 mm pulmonary nodule. This needs to be followed up as an outpatient. I will defer this to primary care physician. Patient will need repeat imaging and pulmonology consult eventually. Physical Exam Narrative: General: Alert oriented x3, very poor historian HEENT: Normocephalic, atraumatic, EOMI, b room air Cardio: Regular rate rhythm, normal S1-S2 Respiratory: Clear to auscultation bilaterally no wheezes no rhonchi no crackles GI: Abdomen soft, nontender, nondistended, bowel sounds + Behavior: Appropriate and cooperative Extremities: No edema bilateral lower extremities Discharge Data Studies Completed and Pending Completed Studies During Hospitalization Category Date Time Status XR chest 1V portable [id number] Stat Exams 05/20/23 07:04 Completed CV. echo complete* [id number] Urgent Ultrasound 05/21/23 14:21 Completed Radiology Impressions Chest X-Ray 05/20/23 07:04 IMPRESSION: 1. No acute findings. 2. No significant change. Laboratory Results WBC 5.76 10^3/uL (3.29-11.43) 05/21/23 04:24 RBC 4.39 10^6/uL (3.85-5.65) 05/21/23 04:24 Hgb 15.20 g/dL (11.27-16.99) 05/21/23 04:24 Hct 45.3 % (37-53) 05/21/23 04:24 MCV 103.2 fl (82-101) H 05/21/23 04:24 MCH 34.6 pg (27-33) H 05/21/23 04:24 MCHC 33.6 g/dL (30-55) 05/21/23 04:24 RDW 14.4 % (12.1-15.1) 05/21/23 04:24 Plt Count 195 10^3/cmm (157-399) 05/21/23 04:24 MPV 10.5 fL (7.4-10.4) H 05/21/23 04:24 Neut % (Auto) 54.0 % 05/21/23 04:24 Lymph % (Auto) 27.4 % 05/21/23 04:24 Evangeline % (Auto) 14.1 % 05/21/23 04:24 Eos % (Auto) 3.5 % 05/21/23 04:24 Baso % (Auto) 0.7 % 05/21/23 04:24 Neut # (Auto) 3.11 10^3/uL (1.8-7.7) 05/21/23 04:24 Lymph # (Auto) 1.6 10^3/uL (0.8-4.8) 05/21/23 04:24 Evangeline # (Auto) 0.8 10^3/uL (0.2-0.9) 05/21/23 04:24 Eos # (Auto) 0.2 10^3/uL (0.0-0.8) 05/21/23 04:24 Baso # (Auto) 0.0 10^3/uL (0.0-0.1) 05/21/23 04:24 Nucleated RBC % (auto) 0 % 05/21/23 04:24 Nucleated RBCs # 0.0 /100WBC 05/21/23 04:24 Specimen Type Arterial 05/20/23 07:23 Sample Site Radial, left 05/20/23 07:23 ABG pH 7.41 (7.35-7.45) 05/20/23 07:23 ABG pCO2 35.0 mmHg (35-45) 05/20/23 07:23 ABG pO2 61.4 mmHg (80.0-100.0) L 05/20/23 07:23 ABG PO2/FiO2 Ratio 0 05/20/23 07:23 ABG HCO3 22.3 mmol/L (22-26) 05/20/23 07:23 ABG O2 Saturation 92.0 05/20/23 07:23 ABG Base Excess -1.6 mmol/L (-2.0-2.0) 05/20/23 07:23 Yousuf Test Pos 05/20/23 07:23 A-a O2 Gradient 5.8 mmHg (5-10) 05/20/23 07:23 Hematocrit 49.6 % (42-52) 05/20/23 07:23 Hgb O2 Saturation 90.4 % (95-100) L 05/20/23 07:23 Carboxyhemoglobin 1.0 %THgb (0.4-20.1) 05/20/23 07:23 Methemoglobin 0.7 % (0.4-1.5) 05/20/23 07:23 Total Hemoglobin 16.2 g/dL (14-18) 05/20/23 07:23 Sodium 141.0 mmol/L (131-143) 05/20/23 07:23 Potassium 4.5 mmol/L (3.5-5.0) 05/20/23 07:23 Glucose 116.0 mg/dL (70-115) H 05/20/23 07:23 Ionized Calcium 1.2 mmol/L (1.1-1.4) 05/20/23 07:23 O2 Delivery Device Room air 05/20/23 07:23 FiO2 21.0 % 05/20/23 07:23 Director Of Instrumental Music ID Destini 05/20/23 07:23 Sodium 134 mmol/L (136-145) L 05/21/23 04:24 Potassium 3.6 mmol/L (3.5-5.1) 05/21/23 04:24 Chloride 95 mmol/L (98-107) L 05/21/23 04:24 Carbon Dioxide 25 mmol/L (22-29) 05/21/23 04:24 Anion Gap 17.6 (5-19) 05/21/23 04:24 BUN 16 mg/dL (8-23) 05/21/23 04:24 Creatinine 1.2 mg/dL (0.7-1.2) 05/21/23 04:24 GFR Calculation Not Reportable 05/21/23 04:24 Glucose 86 mg/dL (65-115) 05/21/23 04:24 Estimat Average Glucose 100 05/20/23 07:34 Hemoglobin A1c 5.1 % (4.0-6.0) 05/20/23 07:34 Calculated Osmolality 278 mOsm/kg (285-295) L 05/21/23 04:24 Calcium 9.0 mg/dL (8.5-10.5) 05/21/23 04:24 Magnesium 2.0 mg/dL (1.7-2.3) 05/21/23 04:24 Total Bilirubin 0.8 mg/dL (0.15-1.2) 05/20/23 07:34 AST 17 U/L (0-40) 05/20/23 07:34 ALT 11 U/L (0-41) 05/20/23 07:34 Alkaline Phosphatase 94 U/L (40-130) 05/20/23 07:34 Troponin T Baseline 15 ng/L (0-15) 05/20/23 07:34 Troponin T 120 Minute 16.65 ng/L (0-15) H 05/20/23 09:33 Delta Troponin T 1.65 ABS# (0-10) 05/20/23 09:33 Troponin T Hi Sens 6Hr 15.32 ng/L (0-15) H 05/20/23 13:23 Troponin T Hi Sens 6Hr Delta 0.32 ng/L (0-12) 05/20/23 13:23 NT-Pro-B Natriuret Pep 1533 pg/mL (0-450) H 05/20/23 07:34 Total Protein 8.0 g/dL (6.6-8.7) 05/20/23 07:34 Albumin 4.0 g/dL (3.5-5.2) 05/20/23 07:34 Globulin 4.0 g/dL (1.3-4.6) 05/20/23 07:34 Triglycerides 62 mg/dL (0-150) 05/20/23 07:34 Cholesterol 192 mg/dL (0-200) 05/20/23 07:34 LDL Cholesterol, Calc 127 mg/dL (50-129) 05/20/23 07:34 HDL Cholesterol 53 mg/dL (60-100) L 05/20/23 07:34 LDL/HDL Ratio 2.40 RATIO (0.00-3.22) 05/20/23 07:34 Cholesterol/HDL Ratio 3.62 mg/dL (1.0-5.00) 05/20/23 07:34 Vitamin B12 236 pg/mL (232-1245) 05/20/23 07:34 Procalcitonin 0.08 ng/mL (0-0.5) 05/20/23 07:34 Procalcitonin 0.10 ng/mL (0-0.5) 05/20/23 07:34 TSH 8.91 uIU/mL (0.27-4.20) H 05/20/23 07:34 Free T4 1.13 ng/dL (0.82-1.77) 05/20/23 07:34 Urine Color Yellow (Yellow) 05/20/23 08:21 Urine Appearance Clear (CLEAR) 05/20/23 08:21 Urine pH 6 (5-7) 05/20/23 08:21 Ur Specific Randolph 1.020 (1.005-1.030) 05/20/23 08:21 Urine Protein Neg (Negative) 05/20/23 08:21 Urine Glucose (UA) Norm (Normal) 05/20/23 08:21 Urine Ketones Negative (Negative) 05/20/23 08:21 Urine Blood Neg (Negative) 05/20/23 08:21 Urine Nitrate Negative (Negative) 05/20/23 08:21 Urine Bilirubin Neg (Negative) 05/20/23 08:21 Urine Urobilinogen Norm mg/dL (Negative) 05/20/23 08:21 Ur Leukocyte Esterase Negative (Negative) 05/20/23 08:21 Vitals Last Vital Signs Temp 97.9 F 05/22/23 03:08 Pulse 103 H 05/22/23 05:37 Resp 16 05/22/23 03:08 BP 145/97 05/22/23 03:08 Pulse Ox 95 05/22/23 03:08 O2 Del Method Room Air 05/22/23 03:08 O2 Flow Rate 1 05/21/23 09:15 Discharge Plan Discharge Patient Disposition: Home Condition: Stable Prescriptions: New Toprol XL 25 mg tablet extended release 24 hr 25 mg PO DAILY Qty: 30 0RF Lasix 20 mg tablet 20 mg PO DAILY Qty: 30 0RF potassium chloride 8 mEq capsule, extended release 8 meq PO DAILY Qty: 30 0RF Continued aspirin 81 mg Tablet,Delayed Release (Dr/Ec) 81 mg PO QAM vitamin E 268 mg (400 unit) Capsule 268 mg PO QAM losartan 50 mg tablet 50 mg PO QAM apixaban 5 mg tablet 5 mg PO QAM Discharge Orders: Discharge Order (Routine); Ordered 05/22/23 Ordered By: Tasha Meadows Other Ambulatory Orders: Basic Metabolic Panel (Q3D) Timeframe: 20230524 Facility: [facility] - Location: Lab - Main Lab Ordered By: Tasha Meadows Basic Metabolic Panel (Q3D) Timeframe: 20230527 Facility: [facility] - Location: Lab - Main Lab Ordered By: Tasha Meadows Basic Metabolic Panel (Q3D) Timeframe: 20230530 Facility: [facility] - Location: Lab - Main Lab Ordered By: Tasha Meadows Referrals: Denis Nowak MD [Primary Care Provider] - 05/29/23 10:20 am Discharge Diet: Cardiac Discharge Activity: Resume usual activity Patient Instructions: Metoprolol (By mouth) (Lopressor, Toprol XL), Furosemide (By mouth) (Lasix), Potassium Chloride (By mouth) (K-Dur, K-Lucina, K-Tab, Luis M Mur), Heart Failure (DC), A-fib (Atrial Fibrillation) (DC), CHF Stoplight, Opioid Safety Discharge Attestations Time Spent in Discharge Care*: less than 30 min Quality Metrics Clinical Quality Measures [ No reported AMI, CVA or VTE this stay] Coding Level of Care Code Acute Code for Chg Fwd Diagnoses Benign essential HTN I10 Congestive heart failure I50.9 A-fib I48.11 Atrial fibrillation type: longstanding persistent Chronic episodic atrial fibrillation I48.20 History of atrial fibrillation Z86.79 Bradycardia R00.1 Dyslipidemia (high LDL; low HDL) E78.5 Acquired hypothyroidism E03.9 Hypothyroidism type: acquired B12 deficiency E53.8
[2023-05-22] MEDS: metoprolol tartrate 25 mg Tablet PO (09:49)
[2023-05-22 10:21] VITALS: PULSE 85; RESP 17; O2SAT 95
[2023-05-22 11:00] VITALS: BP 146/87; PULSE 81; RESP 18; O2SAT 94
[2023-05-22 13:05] VITALS: BP 146/87; PULSE 81; RESP 18; O2SAT 94
--- NOTE | 2023-05-22 13:43 | PC.NURSE ---
discharge instructions given and explained.pt and friend verb understanding of instructions.discharged ambulatory to exit at this time.friend to drive pt home
== END 2023-05-22 13:47 | disposition home or self-care (01) | DRG 308 ==
LOC: ER 12:43 → CSU 14:08
PROVIDERS: Admitting Provider Internal Medicine; Emergency Provider Family Medicine; PCP Internal Medicine; Visit Provider Internal Medicine
DX: I48.20 Chronic atrial fibrillation, unspecified (principal); I50.33 Acute on chronic diastolic (congestive) heart failure; I11.0 Hypertensive heart disease with heart failure; R00.1 Bradycardia, unspecified; Z79.01 Long term (current) use of anticoagulants; R91.1 Solitary pulmonary nodule; E78.5 Hyperlipidemia, unspecified; E03.8 Other specified hypothyroidism; Z86.16 Personal history of COVID-19; I25.10 Atherosclerotic heart disease of native coronary artery without angina pectoris; E53.8 Deficiency of other specified B group vitamins
CPT/HCPCS: 36415; 36600; 71045; 80048; 80051; 80053; 80061; 81003; 82330; 82607; 82805; 83036; 83735; 83880; 84145; 84439; 84443; 84484; 85025; 93005; 93306; 96365; 96366; 96372; 96375; 96376; 97161; 99285; J1644; J1940; J3490; J7030

== ENCOUNTER 2023-05-28 06:43 | Emergency (ER) | payer MEDICARE, MEDICAID, SELFPAY ==
--- NOTE | 2023-05-28 06:43 | ECG_ITS ---
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 Measurements Intervals [place] Rate: 111 P: 0 WI: 0 QRS: 125 QRSD: 137 T: 64 QT: 356 QTc: 485 Interpretive Statements ATRIAL FIBRILLATION WITH RAPID VENTRICULAR RATE RIGHT AXIS DEVIATION [QRS AXIS > 100] INTRAVENTRICULAR CONDUCTION DELAY [130+ ms QRS DURATION] ANTERIOR MYOCARDIAL INFARCTION , POSSIBLY ACUTE [40+ ms Q WAVE AND/OR ST/T ABNORMALITY IN V3/V4] Compared to ECG 05/20/2023 11:51:44 Right-axis deviation now present Intraventricular conduction delay now present Myocardial infarct finding now present Atrial fibrillation no longer present Electronically Signed On 05-28-2023 16:51:50 CDT by Maximino Berkowitz M.D. [id number] f
[2023-05-28 06:50] VITALS: BP 159/104; PULSE 95; TEMP 36.6; O2SAT 98; BMI 30.4
[2023-05-28 07:07] VITALS: BP 152/96; PULSE 95; RESP 17; O2SAT 95
--- NOTE | 2023-05-28 07:09 | ED_ITS ---
HPI - Chest Pain 2 General: Chief Complaint: Chest Pain Stated Complaint: sob Time Seen by Provider: 05/28/23 06:46 Source: patient Mode of arrival: ambulatory History of Present Illness: 82-year-old male who has a known history of atrial fibrillation presents morning in [facility] with RVR with a rate around 1 10-1 15. He has some chest discomfort. He has been in the emergency room multiple times for this was admitted earlier this month briefly. He had a stress test in March of this year that was normal. But the time I seen the patient his heart rate had began to slow down. He had not taken his morning medications chest discomfort is resolved. MD complaint: chest pain Onset (ago): hour(s) Timing of current episode: episodic Prior episodes: Yes Onset: during rest Pain location: substernal Relieving factors: nothing Exacerbating factors: nothing Associated symptoms: Reports palpitations; Deny abdominal pain, diaphoresis, dyspnea, fever(s), leg edema, nausea, sense of impending doom, syncope or vomiting Review of Systems 2 Const: Denies: fever(s), chills or diaphoresis Card: Reports: palpitations; Denies: chest pain or syncope Resp: Denies: dyspnea GI: Denies: abdominal pain, nausea or vomiting : Denies: dysuria, urinary frequency or urinary urgency Musc: Denies: neck pain or back pain Skin/Breast: Denies: rash PFSH ED 2 PFSH: Medical History Left ureteral calculus Renal mass Calculus of kidney with calculus of ureter History of atrial fibrillation Dyslipidemia (high LDL; low HDL) Chronic episodic atrial fibrillation Benign essential HTN Atherosclerotic heart disease of [place] coronary artery without angina pectoris Insomnia History of colon polyps Lumbar disc disease GERD (gastroesophageal reflux disease) Fibromyalgia Surgical History History of cardiac cath History of cholecystectomy History of shoulder surgery History of colonoscopy Family History Brother No problems noted. Father , at age 93 Dementia Parkinson disease Mother , at age 75 No problems noted. Denies family history of Diabetes CAD (coronary artery disease) Clotting disorder Chronic kidney disease (CKD) Suicide Anesthesia complication Bleeding disorder Lung disease Cancer Stroke Social History Smoking and tobacco/nicotine status: never used tobacco/nicotine Alcohol intake: current Alcohol intake frequency: holidays/special occasions only Substance/Drug Use: never Housing: House Marital status: / Current occupational status: retired Physical Exam 2 Const: COMMON NORMALS: no acute distress GENERAL APPEARANCE: cooperative and comfortable ORIENTATION/CONSCIOUSNESS: Yes awake, Yes oriented to person, Yes oriented to place and Yes oriented to time HENMT: COMMON NORMALS: normocephalic, atraumatic and hearing grossly normal bilaterally HEAD & SCALP: normocephalic and atraumatic Resp: COMMON NORMALS: normal respiratory effort, No retractions, No use of accessory muscles and clear to auscultation bilaterally AUSCULTATION: clear to auscultation bilaterally Cardio: COMMON NORMALS: No murmurs present (Cardio) RATE: tachycardic R HYTHM: abnormal rhythm irregularly irregular GI: COMMON NORMALS: Soft to palpation and No hepatosplenomegaly present A USCULTATION: Yes normoactive bowel sounds PALPATION: Yes Soft to palpation, No Tenderness to palpation present (GI), No Guarding due to palpation present (GI) and Yes No hepatosplenomegaly present Extremity: COMMON NORMALS: normal to inspection, capillary refill normal, no clubbing, cyanosis or edema, no calf tenderness and no pedal edema Neuro: SENSORIUM/ORIENTATION: Yes oriented to person, Yes oriented to place and Yes oriented to time Skin: COMMON NORMALS: no rashes or lesions noted GENERAL SKIN EXAM: no rashes or lesions noted Course 2 Vital Signs: Vital signs: Vital Signs Temperature 97.8 F 05/28/23 06:50 Pulse Rate 74 05/28/23 09:18 Respiratory Rate 25 H 05/28/23 08:14 Blood Pressure 142/90 05/28/23 09:18 Pulse Oximetry 96 05/28/23 09:18 Oxygen Delivery Me thod Room Air 05/28/23 09:18 MDM - Chest Pain Medical Decision Making Patient initially seen in [facility] with rapid ventricular response rate was not terribly high we gave him his morning medications and his rate became very well- controlled however he continued in atrial fibrillation blood pressure still moderately elevated. Discharge home after EKGs and troponins were negative. There is no acute ST changes although patient did have continued A-fib the rate was controlled on EKG. Increase his metoprolol to 37.5 mg once daily. And follow-up with his doctor within the next week return if has further problems. Medical Records I reviewed the patient's medical records. Lab Data I reviewed the patient's lab results. 05/28/23 07:21 05/28/23 07:21 Laboratory Results WBC 6.71 10^3/uL (3.29-11.43) 05/28/23 07:21 RBC 4.38 10^6/uL (3.85-5.65) 05/28/23 07:21 Hgb 15.20 g/dL (11.27-16.99) 05/28/23 07:21 Hct 45.1 % (37-53) 05/28/23 07:21 MCV 103.0 fl (82-101) H 05/28/23 07:21 MCH 34.7 pg (27-33) H 05/28/23 07:21 MCHC 33.7 g/dL (30-55) 05/28/23 07:21 RDW 13.6 % (12.1-15.1) 05/28/23 07:21 Plt Count 203 10^3/cmm (157-399) 05/28/23 07:21 MPV 9.8 fL (7.4-10.4) 05/28/23 07:21 Neut % (Auto) 66.6 % 05/28/23 07:21 Lymph % (Auto) 19.7 % 05/28/23 07:21 Campbell % (Auto) 11.3 % 05/28/23 07:21 Eos % (Auto) 1.6 % 05/28/23 07:21 Baso % (Auto) 0.4 % 05/28/23 07:21 Neut # (Auto) 4.46 10^3/uL (1.8-7.7) 05/28/23 07:21 Lymph # (Auto) 1.3 10^3/uL (0.8-4.8) 05/28/23 07:21 Campbell # (Auto) 0.8 10^3/uL (0.2-0.9) 05/28/23 07:21 Eos # (Auto) 0.1 10^3/uL (0.0-0.8) 05/28/23 07:21 Baso # (Auto) 0.0 10^3/uL (0.0-0.1) 05/28/23 07:21 Nucleated RBC % (auto) 0 % 05/28/23 07:21 Nucleated RBCs # 0.0 /100WBC 05/28/23 07:21 Sodium 139 mmol/L (136-145) 05/28/23 07:21 Potassium 5.0 mmol/L (3.5-5.1) 05/28/23 07:21 Chloride 103 mmol/L (98-107) 05/28/23 07:21 Carbon Dioxide 25 mmol/L (22-29) 05/28/23 07:21 Anion Gap 16.0 (5-19) 05/28/23 07:21 BUN 14 mg/dL (8-23) 05/28/23 07:21 Creatinine 1.2 mg/dL (0.7-1.2) 05/28/23 07:21 GFR Calculation Not Reportable 05/28/23 07:21 Glucose 104 mg/dL (65-115) 05/28/23 07:21 Calculated Osmolality 289 mOsm/kg (285-295) 05/28/23 07:21 Calcium 9.1 mg/dL (8.5-10.5) 05/28/23 07:21 Total Bilirubin 1.1 mg/dL (0.15-1.2) 05/28/23 07:21 AST 19 U/L (0-40) 05/28/23 07:21 ALT 14 U/L (0-41) 05/28/23 07:21 Alkaline Phosphatase 82 U/L (40-130) 05/28/23 07:21 Troponin T Baseline 25 ng/L (0-15) H 05/28/23 07:21 Troponin T 120 Minute 20.94 ng/L (0-15) H 05/28/23 09:11 Delta Troponin T -4.06 ABS# (0-10) L 05/28/23 09:11 Total Protein 7.1 g/dL (6.6-8.7) 05/28/23 07:21 Albumin 3.9 g/dL (3.5-5.2) 03/20/24 07:21 Globulin 3.2 g/dL (1.3-4.6) 05/28/23 07:21 All radiology interpretation(s) finalized by discharge Discharge Plan Discharge Patient Disposition: Home Clinical Impression: Benign essential HTN A-fib Qualifiers: Atrial fibrillation type: longstanding persistent Qualified Code(s): I48.11 - Longstanding persistent atrial fibrillation Condition: Stable Prescriptions: Changed metoprolol succinate 25 mg tablet extended release 24 hr 37.5 mg PO DAILY Qty: 45 0RF No Action aspirin 81 mg Tablet,Delayed Release (Dr/Ec) 81 mg PO QAM vitamin E 268 mg (400 unit) Capsule 268 mg PO QAM losartan 50 mg tablet 50 mg PO QAM apixaban 5 mg tablet 5 mg PO QAM furosemide [Lasix] 20 mg tablet 20 mg PO DAILY Qty: 30 0RF potassium chloride 8 mEq capsule, extended release 8 meq PO DAILY Qty: 30 0RF pantoprazole 40 mg tablet,delayed release (DR/EC) 40 mg PO DAILY PRN (Reason: Acid Reflux) Discharge Orders: Discharge ED (Routine); Ordered 05/28/23 Ordered By: Glynn David Referrals: Denis Nowak MD [Primary Care Provider] - Discharge Diet: Usual diet Discharge Activity: Increase activity as tolerated Patient Instructions: Opioid Safety, Pain Management Activity Restrictions/Additional Instructions: Thank you for choosing [facility] for your healthcare needs today. Please realize this is an emergency room and that we are providing you with a medical screening exam and this may not be complete and all inclusive of all the testing and or work up that you may need to determine your ailment or severity of your illness. It is very important that you follow up as instructed or that you return to the Emergency Department should you have concerns or if your condition changes or worsens in any way. You were seen today atrial fibrillation rapid ventricular response is improved and you are given your regular morning medications. Recommend increasing your metoprolol succinate to 1-1/2 tablets (37.5 mg daily). Follow-up with your doctor within the next week. Coding Level of Care Code ED Painting Contractor for Victor M Hale
[2023-05-28] MEDS: metoprolol tartrate 25 mg Tablet PO (07:27)
[2023-05-28 07:30] LABS: Basophils % 0.4 %; Eosinophils # 0.1 10^3/uL (0.0-0.8); Eosinophils % 1.6 %; Hematocrit 45.1 % (37-53); Lymphocytes # 1.3 10^3/uL (0.8-4.8); Lymphocytes % 19.7 %; Mean Corpuscular HGB Conc 33.7 g/dL (30-55); Mean Corpuscular Hemoglobin 34.7 pg (27-33); Mean Platelet Volume 9.8 fL (7.4-10.4); Monocytes # 0.8 10^3/uL (0.2-0.9); Monocytes % 11.3 %; Neutrophils # 4.46 10^3/uL (1.8-7.7); Neutrophils % 66.6 %; Nucleated Red Blood Cells % 0 %; Platelet Count 203 10^3/cmm (157-399); Red Blood Count 4.38 10^6/uL (3.85-5.65); Red Cell Distribution Width 13.6 % (12.1-15.1); White Blood Count 6.71 10^3/uL (3.29-11.43)
--- NOTE | 2023-05-28 07:30 | PC.PHAR ---
Addendum entered by Kimberley Logan 05/28/23 07:34: PT DOES TAKE TOPROL XL 25MG. Original Note: PT HAS 3 NEW RX'S:LASIX 20MG, POTASSIUM CHL 8MEQ, AND TOPROL XL 25MG ER. WRITTEN BY DONNIE OSEI- PT STATES HE DOES NOT TAKE ANY OF THESE MEDICATIONS. WILL VERIFY IF HE HAS PICKED THEM UP WITH [facility], WHEN THEY OPEN TODAY. 05/28/23
[2023-05-28 07:44] LABS: Alanine Aminotransferase 14 U/L (0-41); Albumin Level 3.9 g/dL (3.5-5.2); Alkaline Phosphatase 82 U/L (40-130); Aspartate Amino Transferase 19 U/L (0-40); Blood Urea Nitrogen 14 mg/dL (8-23); Calcium 9.1 mg/dL (8.5-10.5); Carbon Dioxide 25 mmol/L (22-29); Chloride 103 mmol/L (98-107); Creatinine Clr Calc Pharmacy 50.1195; Globulin 3.2 g/dL (1.3-4.6); Glucose 104 mg/dL (65-115); Osmolality Calculated 289 mOsm/kg (285-295); Sodium 139 mmol/L (136-145); Total Bilirubin 1.1 mg/dL (0.15-1.2); Total Protein 7.1 g/dL (6.6-8.7)
[2023-05-28 07:54] LABS: Troponin(5th) Baseline 25 ng/L (0-15)
[2023-05-28 08:14] VITALS: BP 139/94; PULSE 83; RESP 25; O2SAT 96
--- NOTE | 2023-05-28 08:53 | ECG_ITS ---
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 Measurements Intervals [place] Rate: 93 P: 0 [place]: 0 QRS: 30 QRSD: 91 T: 45 QT: 341 QTc: 425 Interpretive Statements ATRIAL FIBRILLATION Compared to ECG 05/28/2023 06:43:35 Right-axis deviation no longer present Intraventricular conduction delay no longer present Myocardial infarct finding no longer present Electronically Signed On 05-28-2023 16:59:43 CDT by Maximino Berkowitz M.D. [id number] f
[2023-05-28 09:18] VITALS: BP 142/90; PULSE 74; O2SAT 96
[2023-05-28 09:39] LABS: Troponin 5 2HR 20.94 ng/L (0-15)
[2023-05-28 09:54] LABS: Troponin 5 2HR Delta -4.06 ABS# (0-10)
[2023-05-28] MEDS: metoprolol succinate ER (24 HR) 25 mg Tablet PO (10:28)
[2023-05-28 10:35] VITALS: BP 142/90; PULSE 74; O2SAT 96
== END 2023-05-28 10:40 | disposition home or self-care (01) ==
PROVIDERS: Emergency Provider Family Medicine; PCP Internal Medicine
DX: I48.11 Longstanding persistent atrial fibrillation (principal); I10 Essential (primary) hypertension; Z79.82 Long term (current) use of aspirin; E78.5 Hyperlipidemia, unspecified; I25.10 Atherosclerotic heart disease of native coronary artery without angina pectoris
CPT/HCPCS: 36415; 80053; 84484; 85025; 93005; 99284

== ENCOUNTER 2023-06-03 06:37 | Emergency (ER) | payer MEDICARE, MEDICAID, SELFPAY ==
[2023-06-03 06:45] VITALS: BP 170/124; PULSE 108; RESP 15; TEMP 36.3; O2SAT 98
--- NOTE | 2023-06-03 06:46 | ECG_ITS ---
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 Measurements Intervals [place] Rate: 97 P: 0 SC: 0 QRS: -8 QRSD: 84 T: 47 QT: 331 QTc: 421 Interpretive Statements ATRIAL FIBRILLATION MINIMAL ST DEPRESSION [0.025+ mV ST DEPRESSION] ABNORMAL RHYTHM ECG Compared to ECG 05/28/2023 07:13:54 ST (T wave) deviation now present Electronically Signed On 06-04-2023 23:40:07 CDT by Kavon Cordoba M.D. [id number] f
--- NOTE | 2023-06-03 06:47 | XR_ITS ---
WS: [id number] Exam: XR chest 1V portable [id number] Date/Time of Exam: 06/03/2023 6:53 AM Reason For Exam: dyspnea/cough Comparison 05/20/2023. The lungs are clear and fully inflated. Normal cardiomediastinal silhouette for technique. No pleural effusions. Regional bony elements are intact. Anchoring screws in the RIGHT humeral head. Moderate D PAYTON of both shoulders. IMPRESSION: 1. No acute cardiopulmonary finding.
--- NOTE | 2023-06-03 06:48 | ED_ITS ---
HPI - SOB/Dyspnea 2 General: Chief Complaint: Shortness of Breath/Dyspnea Stated Complaint: sob Time Seen by Provider: 06/03/23 06:46 Source: patient Mode of arrival: ambulatory History of Present Illness: HPI Narrative: 82-year-old male with a known history of atrial fibrillation presents emergency room with complaints of rapid heart rate and short of breath shortness of breath began last night. He is currently on 37 of milligrams daily metoprolol has not taken his morning dose of metoprolol at this point. No chest pain, no fever sweats or chills or productive cough Associated symptoms: Deny abdominal pain, chest pain or fever(s) Review of Systems 2 Const: Denies: fever(s) or chills Card: Denies: chest pain Resp: Denies: dyspnea GI: Denies: abdominal pain : Denies: dysuria, urinary frequency or urinary urgency Musc: Denies: neck pain or back pain Skin/Breast: Denies: rash PFSH ED 2 PFSH: Medical History Left ureteral calculus Renal mass Calculus of kidney with calculus of ureter History of atrial fibrillation Dyslipidemia (high LDL; low HDL) Chronic episodic atrial fibrillation Benign essential HTN Atherosclerotic heart disease of [place] coronary artery without angina pectoris Insomnia History of colon polyps Lumbar disc disease GERD (gastroesophageal reflux disease) Fibromyalgia Surgical History History of cardiac cath History of cholecystectomy History of shoulder surgery History of colonoscopy Family History Brother No problems noted. Father , at age 93 Dementia Parkinson disease Mother , at age 75 No problems noted. Denies family history of Diabetes CAD (coronary artery disease) Clotting disorder Chronic kidney disease (CKD) Suicide Anesthesia complication Bleeding disorder Lung disease Cancer Stroke Social History Smoking and tobacco/nicotine status: never used tobacco/nicotine Alcohol intake: current Alcohol intake frequency: holidays/special occasions only Substance/Drug Use: never Housing: House Marital status: / Current occupational status: retired Physical Exam 2 Const: GENERAL APPEARANCE: cooperative and comfortable O RIENTATION/CONSCIOUSNESS: Yes awake, Yes oriented to person, Yes oriented to place and Yes oriented to time HENMT: COMMON NORMALS: normocephalic, atraumatic and hearing grossly normal bilaterally HEAD & SCALP: normocephalic and atraumatic Resp: COMMON NORMALS: normal respiratory effort, No retractions, No use of accessory muscles and clear to auscultation bilaterally AUSCULTATION: clear to auscultation bilaterally Cardio: COMMON NORMALS: No murmurs present (Cardio) RATE: tachycardic R HYTHM: abnormal rhythm irregularly irregular GI: COMMON NORMALS: Soft to palpation and No hepatosplenomegaly present A USCULTATION: Yes normoactive bowel sounds PALPATION: Yes Soft to palpation, No Tenderness to palpation present (GI), No Guarding due to palpation present (GI) and Yes No hepatosplenomegaly present Extremity: COMMON NORMALS: normal to inspection, capillary refill normal, no clubbing, cyanosis or edema, no calf tenderness and no pedal edema Neuro: SENSORIUM/ORIENTATION: Yes oriented to person, Yes oriented to place and Yes oriented to time Skin: COMMON NORMALS: no rashes or lesions noted GENERAL SKIN EXAM: no rashes or lesions noted Course 2 Vital Signs: Vital signs: Vital Signs Temperature 97.4 F L 06/03/23 06:45 Pulse Rate 86 06/03/23 08:04 Respiratory Rate 15 06/03/23 06:45 Blood Pressure 143/95 06/03/23 09:08 Pulse Oximetry 96 06/03/23 08:04 Oxygen Delivery Me thod Room Air 06/03/23 08:04 MDM - SOB/Dyspnea Medical Decision Making Rate improved with medications given. Will increase his Toprol-XL to 50 total in a day have him split up to 25 mg in the morning and 25 mg at night has been having difficulty where he has breakthrough rapid rates in the morning. Follow- up with Within the next week Medical Records I reviewed the patient's medical records. Lab Data I reviewed the patient's lab results. 06/03/23 06:50 06/03/23 07:18 Labs/Radiology: Laboratory Results WBC 6.33 10^3/uL (3.29-11.43) 06/03/23 06:50 RBC 4.49 10^6/uL (3.85-5.65) 06/03/23 06:50 Hgb 15.70 g/dL (11.27-16.99) 06/03/23 06:50 Hct 45.5 % (37-53) 06/03/23 06:50 MCV 101.3 fl (82-101) H 06/03/23 06:50 MCH 35.0 pg (27-33) H 06/03/23 06:50 MCHC 34.5 g/dL (30-55) 06/03/23 06:50 RDW 14.1 % (12.1-15.1) 06/03/23 06:50 Plt Count 184 10^3/cmm (157-399) 06/03/23 06:50 MPV 10.2 fL (7.4-10.4) 06/03/23 06:50 Neut % (Auto) 57.0 % 06/03/23 06:50 Lymph % (Auto) 29.7 % 06/03/23 06:50 [place] % (Auto) 10.1 % 06/03/23 06:50 Eos % (Auto) 2.2 % 06/03/23 06:50 Baso % (Auto) 0.5 % 06/03/23 06:50 Neut # (Auto) 3.61 10^3/uL (1.8-7.7) 06/03/23 06:50 Lymph # (Auto) 1.9 10^3/uL (0.8-4.8) 06/03/23 06:50 [place] # (Auto) 0.6 10^3/uL (0.2-0.9) 06/03/23 06:50 Eos # (Auto) 0.1 10^3/uL (0.0-0.8) 06/03/23 06:50 Baso # (Auto) 0.0 10^3/uL (0.0-0.1) 06/03/23 06:50 Nucleated RBC % (auto) 0 % 06/03/23 06:50 Nucleated RBCs # 0.0 /100WBC 06/03/23 06:50 Sodium 137 mmol/L (136-145) 06/03/23 07:18 Potassium 4.1 mmol/L (3.5-5.1) 06/03/23 07:18 Chloride 101 mmol/L (98-107) 06/03/23 07:18 Carbon Dioxide 24 mmol/L (22-29) 06/03/23 07:18 Anion Gap 16.1 (5-19) 06/03/23 07:18 BUN 14 mg/dL (8-23) 06/03/23 07:18 Creatinine 1.3 mg/dL (0.7-1.2) H 06/03/23 07:18 GFR Calculation Not Reportable 06/03/23 07:18 Glucose 99 mg/dL (65-115) 06/03/23 07:18 Calculated Osmolality 285 mOsm/kg (285-295) 06/03/23 07:18 Calcium 8.9 mg/dL (8.5-10.5) 06/03/23 07:18 Total Bilirubin 1.3 mg/dL (0.15-1.2) H 06/03/23 07:18 AST 16 U/L (0-40) 06/03/23 07:18 ALT 10 U/L (0-41) 06/03/23 07:18 Alkaline Phosphatase 75 U/L (40-130) 06/03/23 07:18 Total Protein 7.3 g/dL (6.6-8.7) 06/03/23 07:18 Albumin 3.9 g/dL (3.5-5.2) 06/03/23 07:18 Globulin 3.4 g/dL (1.3-4.6) 06/03/23 07:18 All radiology interpretation(s) finalized by discharge Discharge Plan Discharge Patient Disposition: Home Clinical Impression: Benign essential HTN A-fib Qualifiers: Atrial fibrillation type: longstanding persistent Qualified Code(s): I48.11 - Longstanding persistent atrial fibrillation Prescriptions: New Toprol XL 25 mg tablet extended release 24 hr 25 mg PO BID Qty: 60 0RF Discontinued metoprolol succinate 25 mg tablet extended release 24 hr 37.5 mg PO DAILY Qty: 45 0RF No Action aspirin 81 mg Tablet,Delayed Release (Dr/Ec) 81 mg PO QAM vitamin E 268 mg (400 unit) Capsule 268 mg PO QAM losartan 50 mg tablet 50 mg PO QAM apixaban 5 mg tablet 5 mg PO QAM furosemide [Lasix] 20 mg tablet 20 mg PO DAILY Qty: 30 0RF potassium chloride 8 mEq capsule, extended release 8 meq PO DAILY Qty: 30 0RF pantoprazole 40 mg tablet,delayed release (DR/EC) 40 mg PO DAILY PRN (Reason: Acid Reflux) Discharge Orders: Discharge ED (Routine); Ordered 06/03/23 Ordered By: Glynn David Referrals: Denis Nowak MD [Primary Care Provider] - Discharge Diet: Usual diet Discharge Activity: Increase activity as tolerated Patient Instructions: Opioid Safety, Pain Management Activity Restrictions/Additional Instructions: Thank you for choosing [facility] [place] for your healthcare needs today. Please realize this is an emergency room and that we are providing you with a medical screening exam and this may not be complete and all inclusive of all the testing and or work up that you may need to determine your ailment or severity of your illness. It is very important that you follow up as instructed or that you return to the Emergency Department should you have concerns or if your condition changes or worsens in any way. You are seen today for an episode of atrial fibrillation. Recommend changing your metoprolol dose to Toprol XL 25 mg 1 tablet twice a day. You were given the morning dose here in the emergency room should take your metoprolol this evening. Coding Level of Care Code ED Manager [employer] [facility] for [facility]
[2023-06-03 07:00] LABS: Basophils % 0.5 %; Eosinophils # 0.1 10^3/uL (0.0-0.8); Eosinophils % 2.2 %; Hematocrit 45.5 % (37-53); Lymphocytes # 1.9 10^3/uL (0.8-4.8); Lymphocytes % 29.7 %; Mean Corpuscular HGB Conc 34.5 g/dL (30-55); Mean Corpuscular Volume 101.3 fl (82-101); Mean Platelet Volume 10.2 fL (7.4-10.4); Monocytes # 0.6 10^3/uL (0.2-0.9); Monocytes % 10.1 %; Neutrophils # 3.61 10^3/uL (1.8-7.7); Nucleated Red Blood Cells % 0 %; Platelet Count 184 10^3/cmm (157-399); Red Blood Count 4.49 10^6/uL (3.85-5.65); Red Cell Distribution Width 14.1 % (12.1-15.1); White Blood Count 6.33 10^3/uL (3.29-11.43)
[2023-06-03] MEDS: metoprolol tartrate 1 mg/1 mL SDV 5 mL 2.5 MG IVP (07:02)
[2023-06-03] MEDS: metoprolol tartrate 25 mg Tablet 37.5 MG PO (07:02)
[2023-06-03 07:42] VITALS: BP 135/91; O2SAT 99
[2023-06-03 07:43] LABS: Alanine Aminotransferase 10 U/L (0-41); Albumin Level 3.9 g/dL (3.5-5.2); Alkaline Phosphatase 75 U/L (40-130); Anion Gap 16.1 (5-19); Aspartate Amino Transferase 16 U/L (0-40); Blood Urea Nitrogen 14 mg/dL (8-23); Calcium 8.9 mg/dL (8.5-10.5); Carbon Dioxide 24 mmol/L (22-29); Chloride 101 mmol/L (98-107); Creatinine Clr Calc Pharmacy 46.2641; Globulin 3.4 g/dL (1.3-4.6); Glucose 99 mg/dL (65-115); Osmolality Calculated 285 mOsm/kg (285-295); Potassium 4.1 mmol/L (3.5-5.1); Sodium 137 mmol/L (136-145); Total Bilirubin 1.3 mg/dL (0.15-1.2); Total Protein 7.3 g/dL (6.6-8.7)
[2023-06-03 08:04] VITALS: BP 153/95; PULSE 86; O2SAT 96
[2023-06-03 09:08] VITALS: BP 143/95
== END 2023-06-03 09:09 | disposition home or self-care (01) ==
PROVIDERS: Emergency Provider Family Medicine; PCP Internal Medicine
DX: I48.11 Longstanding persistent atrial fibrillation (principal); Z79.82 Long term (current) use of aspirin; E78.5 Hyperlipidemia, unspecified; I10 Essential (primary) hypertension; I25.10 Atherosclerotic heart disease of native coronary artery without angina pectoris
CPT/HCPCS: 36415; 71045; 80053; 85025; 93005; 96374; 99285; J3490

== ENCOUNTER 2023-06-20 07:12 | Emergency (ER) | payer MEDICARE, MEDICAID, SELFPAY ==
--- NOTE | 2023-06-20 07:15 | XR_ITS ---
WS: [id number] Portable AP upright chest, 06/20/2023 Clinical Data: dyspnea/cough Comparison: Portable chest, 06/03/2023 Findings: No nodules, masses or effusions are seen. The heart is slightly enlarged. The pulmonary vas cularity is not increased. No pneumonia or pneumothorax is seen. The aortic arch shows tortuosity. Th ere are monitor leads on the chest wall. There is an orthopedic anchor in the right humeral head. Impression: Cardiomegaly and atherosclerosis.
--- NOTE | 2023-06-20 07:15 | ECG_ITS ---
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 Measurements Intervals [place] Rate: 101 P: 0 [place]: 0 QRS: 74 QRSD: 87 T: 70 QT: 327 QTc: 425 Interpretive Statements ATRIAL FIBRILLATION WITH RAPID VENTRICULAR RESPONSE MINIMAL ST DEPRESSION [0.025+ mV ST DEPRESSION] Compared to ECG 06/03/2023 06:46:17 No significant changes Electronically Signed On 06-20-2023 17:02:03 CDT by Maximino Berkowitz M.D. [id number] f
--- NOTE | 2023-06-20 07:16 | W.ED.SOB ---
HPI - SOB/Dyspnea General: Chief Complaint: Shortness of Breath/Dyspnea Stated Complaint: SOB Time Seen by Provider: 06/20/23 07:14 Source: patient Mode of arrival: ambulatory History of Present Illness: HPI Narrative: 82-year-old male with a known history of A-fib but he has been into the emergency room multiple times in the last couple of months. In reviewing chart he is at 8 visits since the beginning of the year including 2 hospitalizations. We have increased his metoprolol to succinate up to 25 mg twice a day. He denies any chest pain at this time. He is uncertain if he took his medication this morning his heart rates hovering around 100 his blood pressure is elevated. No shortness of breath or orthopnea MD elicited complaint: shortness of breath Pertinent past history: other (Atrial fibrillation) Exacerbating factors: exertion Relieving factors: rest Known history of: other (Atrial fibrillation) Associated symptoms: Deny abdominal pain, chest congestion, chest pain, cough, diaphoresis, dizziness, extremity pain, fever(s), hemoptysis, lightheadedness, myalgias, nausea, orthopnea, palpitations, paresthesias, polydipsia, polyuria, rash, sense of impending doom, syncope or vomiting Treatment prior to arrival: none Review of Systems Const: Denies: fever(s), chills or diaphoresis Card: Denies: chest pain, palpitations, lightheadedness, syncope or orthopnea Resp: Denies: dyspnea, hemoptysis or chest congestion GI: Denies: abdominal pain, nausea or vomiting : Denies: dysuria, urinary frequency or urinary urgency Musc: Denies: neck pain, back pain or extremity pain Skin/Breast: Denies: rash Neuro: Denies: dizziness Endo: Denies: polyuria or polydipsia PFS ED PFSH: Medical History Left ureteral calculus Renal mass Calculus of kidney with calculus of ureter History of atrial fibrillation Dyslipidemia (high LDL; low HDL) Chronic episodic atrial fibrillation Benign essential HTN Atherosclerotic heart disease of [place] coronary artery without angina pectoris Insomnia History of colon polyps Lumbar disc disease GERD (gastroesophageal reflux disease) Fibromyalgia Surgical History History of cardiac cath History of cholecystectomy History of shoulder surgery History of colonoscopy Family History Brother No problems noted. Father , at age 93 Dementia Parkinson disease Mother , at age 75 No problems noted. Denies family history of Diabetes CAD (coronary artery disease) Clotting disorder Chronic kidney disease (CKD) Suicide Anesthesia complication Bleeding disorder Lung disease Cancer Stroke Social History Smoking and tobacco/nicotine status: never used tobacco/nicotine Alcohol intake: current Alcohol intake frequency: holidays/special occasions only Substance/Drug Use: never Housing: House Marital status: / Current occupational status: retired Physical Exam Const: COMMON NORMALS: no acute distress GENERAL APPEARANCE: cooperative and comfortable ORIENTATION/CONSCIOUSNESS: Yes awake, Yes oriented to person, Yes oriented to place and Yes oriented to time HENMT: COMMON NORMALS: normocephalic, atraumatic and hearing grossly normal bilaterally HEAD & SCALP: normocephalic and atraumatic Resp: COMMON NORMALS: normal respiratory effort, No retractions, No use of accessory muscles and clear to auscultation bilaterally AUSCULTATION: clear to auscultation bilaterally Cardio: COMMON NORMALS: regular rate, regular rhythm and No murmurs present (Cardio) RATE: regular rate RHYTHM: regular rhythm GI: COMMON NORMALS: Soft to palpation and No hepatosplenomegaly present AUSCULTATION: Yes normoactive bowel sounds PALPATION: Yes Soft to palpation, No Tenderness to palpation present (GI), No Guarding due to palpation present (GI) and Yes No hepatosplenomegaly present Extremity: COMMON NORMALS: normal to inspection, capillary refill normal, no clubbing, cyanosis or edema, no calf tenderness and no pedal edema Neuro: SENSORIUM/ORIENTATION: Yes oriented to person, Yes oriented to place and Yes oriented to time Skin: COMMON NORMALS: no rashes or lesions noted GENERAL SKIN EXAM: no rashes or lesions noted Course Vital Signs: Vital signs: Vital Signs Temperature 97.5 F L 06/20/23 07:17 Pulse Rate 100 06/20/23 07:53 Respiratory Rate 18 06/20/23 07:26 Blood Pressure 150/91 06/20/23 08:25 Pulse Oximetry 95 06/20/23 07:53 Oxygen Delivery Me thod Room Air 06/20/23 07:53 MDM - SOB/Dyspnea Medical Decision Making Rate improved and is maintaining around 100. Will discharge charge patient home continue medications. He has been given his morning dose of Toprol as well as a small dose of IV metoprolol. Encourage patient to take medications on a scheduled basis. Medical Records I reviewed the patient's medical records. Lab Data I reviewed the patient's lab results. 06/20/23 07:24 06/20/23 07:24 Labs/Radiology: Laboratory Results WBC 8.90 10^3/uL (3.29-11.43) 06/20/23 07:24 RBC 4.50 10^6/uL (3.85-5.65) 06/20/23 07:24 Hgb 15.70 g/dL (11.27-16.99) 06/20/23 07:24 Hct 47.2 % (37-53) 06/20/23 07:24 MCV 104.9 fl (82-101) H 06/20/23 07:24 MCH 34.9 pg (27-33) H 06/20/23 07:24 MCHC 33.3 g/dL (30-55) 06/20/23 07:24 RDW 13.9 % (12.1-15.1) 06/20/23 07:24 Plt Count 191 10^3/cmm (157-399) 06/20/23 07:24 MPV 10.1 fL (7.4-10.4) 06/20/23 07:24 Neut % (Auto) 72.8 % 06/20/23 07:24 Lymph % (Auto) 16.6 % 06/20/23 07:24 [place] % (Auto) 8.7 % 06/20/23 07:24 Eos % (Auto) 1.2 % 06/20/23 07:24 Baso % (Auto) 0.3 % 06/20/23 07:24 Neut # (Auto) 6.47 10^3/uL (1.8-7.7) 06/20/23 07:24 Lymph # (Auto) 1.5 10^3/uL (0.8-4.8) 06/20/23 07:24 [place] # (Auto) 0.8 10^3/uL (0.2-0.9) 06/20/23 07:24 Eos # (Auto) 0.1 10^3/uL (0.0-0.8) 06/20/23 07:24 Baso # (Auto) 0.0 10^3/uL (0.0-0.1) 06/20/23 07:24 Nucleated RBC % (auto) 0 % 06/20/23 07:24 Nucleated RBCs # 0.0 /100WBC 06/20/23 07:24 Sodium 136 mmol/L (136-145) 06/20/23 07:24 Potassium 4.5 mmol/L (3.5-5.1) 06/20/23 07:24 Chloride 102 mmol/L (98-107) 06/20/23 07:24 Carbon Dioxide 23 mmol/L (22-29) 06/20/23 07:24 Anion Gap 15.5 (5-19) 06/20/23 07:24 BUN 14 mg/dL (8-23) 06/20/23 07:24 Creatinine 1.2 mg/dL (0.7-1.2) 06/20/23 07:24 GFR Calculation Not Reportable 06/20/23 07:24 Glucose 106 mg/dL (65-115) 06/20/23 07:24 Calculated Osmolality 283 mOsm/kg (285-295) L 06/20/23 07:24 Calcium 9.0 mg/dL (8.5-10.5) 06/20/23 07:24 Total Bilirubin 1.5 mg/dL (0.15-1.2) H 06/20/23 07:24 AST 18 U/L (0-40) 06/20/23 07:24 ALT 8 U/L (0-41) 06/20/23 07:24 Alkaline Phosphatase 83 U/L (40-130) 06/20/23 07:24 Troponin T Baseline 12 ng/L (0-15) 06/20/23 07:24 Total Protein 7.5 g/dL (6.6-8.7) 06/20/23 07:24 Albumin 4.1 g/dL (3.5-5.2) 06/20/23 07:24 Globulin 3.4 g/dL (1.3-4.6) 06/20/23 07:24 All radiology interpretation(s) finalized by discharge Discharge Plan Discharge Patient Disposition: Home Clinical Impression: A-fib Qualifiers: Atrial fibrillation type: longstanding persistent Qualified Code(s): I48.11 - Longstanding persistent atrial fibrillation Condition: Stable Prescriptions: No Action aspirin 81 mg Tablet,Delayed Release (Dr/Ec) 81 mg PO QAM vitamin E 268 mg (400 unit) Capsule 268 mg PO QAM losartan 50 mg tablet 50 mg PO QAM apixaban 5 mg tablet 5 mg PO QAM furosemide [Lasix] 20 mg tablet 20 mg PO DAILY Qty: 30 0RF metoprolol succinate [Toprol XL] 25 mg tablet extended release 24 hr 25 mg PO BID Qty: 60 0RF Discharge Orders: Discharge ED (Routine); Ordered 06/20/23 Ordered By: Glynn David Referrals: Denis Nowak MD [Primary Care Provider] - Discharge Diet: Advance as tolerated Discharge Activity: Resume usual activity Patient Instructions: Opioid Safety, Pain Management Activity Restrictions/Additional Instructions: Thank you for choosing [facility] for your healthcare needs today. Please realize this is an emergency room and that we are providing you with a medical screening exam and this may not be complete and all inclusive of all the testing and or work up that you may need to determine your ailment or severity of your illness. It is very important that you follow up as instructed or that you return to the Emergency Department should you have concerns or if your condition changes or worsens in any way. You are seen today for complaints of rapid heart rate. You are given your regular morning medications as well as a little extra IV version of the morning medicine. Your heart rate is controlled. It is very important to take your metoprolol daily at the prescribed high. You should be taking 1 tablet twice a day. Follow-up with your doctor within the next week. Coding Level of Care Code ED Sample Display Preparer for [facility]
[2023-06-20 07:17] VITALS: BP 178/110; PULSE 106; TEMP 36.4; O2SAT 94
[2023-06-20 07:26] VITALS: PULSE 98; RESP 18; O2SAT 98
[2023-06-20 07:29] LABS: Basophils % 0.3 %; Eosinophils # 0.1 10^3/uL (0.0-0.8); Eosinophils % 1.2 %; Hematocrit 47.2 % (37-53); Lymphocytes # 1.5 10^3/uL (0.8-4.8); Lymphocytes % 16.6 %; Mean Corpuscular HGB Conc 33.3 g/dL (30-55); Mean Corpuscular Hemoglobin 34.9 pg (27-33); Mean Corpuscular Volume 104.9 fl (82-101); Mean Platelet Volume 10.1 fL (7.4-10.4); Monocytes # 0.8 10^3/uL (0.2-0.9); Monocytes % 8.7 %; Neutrophils # 6.47 10^3/uL (1.8-7.7); Neutrophils % 72.8 %; Nucleated Red Blood Cells % 0 %; Platelet Count 191 10^3/cmm (157-399); Red Cell Distribution Width 13.9 % (12.1-15.1)
[2023-06-20] MEDS: metoprolol tartrate 1 mg/1 mL SDV 5 mL 2.5 MG IVP (07:49)
[2023-06-20] MEDS: metoprolol succinate ER (24 HR) 25 mg Tablet PO (07:50)
[2023-06-20 07:52] LABS: Alanine Aminotransferase 8 U/L (0-41); Albumin Level 4.1 g/dL (3.5-5.2); Alkaline Phosphatase 83 U/L (40-130); Blood Urea Nitrogen 14 mg/dL (8-23); Carbon Dioxide 23 mmol/L (22-29); Chloride 102 mmol/L (98-107); Creatinine Clr Calc Pharmacy 50.1195; Globulin 3.4 g/dL (1.3-4.6); Glucose 106 mg/dL (65-115); Osmolality Calculated 283 mOsm/kg (285-295); Sodium 136 mmol/L (136-145); Total Bilirubin 1.5 mg/dL (0.15-1.2); Total Protein 7.5 g/dL (6.6-8.7)
[2023-06-20 07:53] VITALS: BP 153/106; PULSE 100; O2SAT 95
[2023-06-20 07:54] LABS: Troponin(5th) Baseline 12 ng/L (0-15)
[2023-06-20 07:56] LABS: Anion Gap 15.5 (5-19); Aspartate Amino Transferase 18 U/L (0-40); Potassium 4.5 mmol/L (3.5-5.1)
--- NOTE | 2023-06-20 08:10 | PC.PHAR ---
PT UNCOOPERATIVE - PT STS HE TAKES MEDICATIONS WHEN HE THINKS ABOUT IT, STS IF HE PICKED IT UP HE PROBABLY TAKES THEM - MEDICATIONS VERIFIED USING EXTERNAL MED LIST LAST FILLED- PT STS HE DOES NOT TAKE LASIX BECAUSE HE DOES NOT LIKE THEM
[2023-06-20 08:25] VITALS: BP 150/91
== END 2023-06-20 09:29 | disposition home or self-care (01) ==
PROVIDERS: Emergency Provider Family Medicine; PCP Internal Medicine
DX: I48.11 Longstanding persistent atrial fibrillation (principal); Z79.82 Long term (current) use of aspirin; E78.5 Hyperlipidemia, unspecified; I10 Essential (primary) hypertension; I25.10 Atherosclerotic heart disease of native coronary artery without angina pectoris
CPT/HCPCS: 36415; 71045; 80053; 84484; 85025; 93005; 96374; 99285; J3490

== ENCOUNTER 2023-06-21 00:08 | Emergency (ER) | payer MEDICARE, MEDICAID, SELFPAY ==
--- NOTE | 2023-06-21 00:11 | ECG_ITS ---
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 Measurements Intervals [place] Rate: 99 P: 0 [place]: 0 QRS: -3 QRSD: 90 T: 37 QT: 347 QTc: 447 Interpretive Statements ATRIAL FIBRILLATION POSSIBLE ANTERIOR MYOCARDIAL INFARCTION , PROBABLY OLD [30 ms Q WAVE IN V3/V4, OR R < 0.2 mV IN V4] ABNORMAL RHYTHM ECG Compared to ECG 06/20/2023 07:20:57 Myocardial infarct finding now present ST (T wave) deviation no longer present Electronically Signed On 06-21-2023 13:45:41 CDT by Kavon Cordoba M.D. [id number]
[2023-06-21 00:15] VITALS: BP 172/93; PULSE 109; RESP 22; TEMP 36.6; O2SAT 97
--- NOTE | 2023-06-21 00:23 | XRR_ITS ---
PROCEDURE INFORMATION: Exam: XR Chest Exam date and time: 06/21/2023 12:34 AM Age: 82 years old Clinical indication: Shortness of breath; Prior surgery; Surgery date: 6+ months; Surgery type: Cardiac cath. Gb. Patient HX: C/O SOB TECHNIQUE: Imaging protocol: Radiologic exam of the chest. Views: 1 view. COMPARISON: CR XR chest 1V portable [id number] 06/20/2023 7:43 AM FINDINGS: Lungs: There is mild bronchial wall thickening, indistinctness of the pulmonary vasculature and increased interstitial opacities present in the mid and lower [place] thoraces, findings suggesting pulmonary edema. Pleural spaces: Unremarkable. No pleural effusion. No pneumothorax. Heart/Mediastinum: Cardiac silhouette is at the upper limits of normal. Bones/joints: Unremarkable. XR/XR chest 1V portable [id number] IMPRESSION: Peribronchial cuffing, indistinct pulmonary vasculature and increased interstitial opacities in the lower thoraces suggests pulmonary edema.
--- NOTE | 2023-06-21 00:30 | W.ED.SOB ---
Documented by User: FLORENCIO Jo 06/21/23 12:53 HPI - SOB/Dyspnea General: Chief Complaint: Shortness of Breath/Dyspnea Stated Complaint: SOB Time Seen by Provider: 06/21/23 00:22 Source: patient Mode of arrival: ambulatory Limitations: no limitations History of Present Illness: HPI Narrative: Patient is an 82-year-old male with history of chronic persistent atrial fibrillation presenting to the emergency department complaining of shortness of breath onset intermittently for the past few weeks. Patient was seen just yesterday, where he had a normal cardiac workup and was discharged home in stable conditions. He had reported at that time that he takes his medications infrequently, and when I ask him what he takes for his A-fib, he simply states I just take a pill I do not know what it is. He notes that the breathing is not exacerbated by anything specific, and it comes on primarily when he is sitting and doing nothing physical. When asked if his condition has changed at all since his visit yesterday, he says not really. He denies any current chest pain, diaphoresis, nausea, peripheral edema, or any other symptoms. He denies any personal history of heart attacks, strokes, or blood clots. MD elicited complaint: shortness of breath Pertinent past history: other (A-fib) Onset (ago): week(s) Timing: intermittent Severity: mild Exacerbating factors: nothing Relieving factors: rest Associated symptoms: Reports no associated symptoms; Deny abdominal pain, chest pain, fever(s), lightheadedness, nausea, palpitations or vomiting Review of Systems General: Reports: 10 or more systems reviewed and unremarkable except in HPI and below Const: Denies: fever(s), chills or fatigue Eyes: Denies: change in vision ENMT: Denies: throat pain, ear or mastoid pain or nasal discharge Card: Denies: chest pain, palpitations, swelling of feet/ankles or lightheadedness Resp: Reports: dyspnea; Denies: productive cough or wheezing GI: Denies: abdominal pain, nausea, vomiting, diarrhea or constipation : Denies: flank pain, difficulty urinating, dysuria or urinary frequency Musc: Denies: neck pain, back pain or joint pain Skin/Breast: Denies: rash Neuro: Denies: headache(s), numbness in extremities or weakness in extremities PFSH ED PFSH: Medical History Left ureteral calculus Renal mass Calculus of kidney with calculus of ureter History of atrial fibrillation Dyslipidemia (high LDL; low HDL) Chronic episodic atrial fibrillation Benign essential HTN Atherosclerotic heart disease of [place] coronary artery without angina pectoris Insomnia History of colon polyps Lumbar disc disease GERD (gastroesophageal reflux disease) Fibromyalgia Surgical History History of cardiac cath History of cholecystectomy History of shoulder surgery History of colonoscopy Family History Brother No problems noted. Father , at age 93 Dementia Parkinson disease Mother , at age 75 No problems noted. Denies family history of Diabetes CAD (coronary artery disease) Clotting disorder Chronic kidney disease (CKD) Suicide Anesthesia complication Bleeding disorder Lung disease Cancer Stroke Social History Smoking and tobacco/nicotine status: never used tobacco/nicotine Alcohol intake: current Alcohol intake frequency: holidays/special occasions only Substance/Drug Use: never Housing: House Marital status: / Current occupational status: retired Physical Exam Const: COMMON NORMALS: no acute distress, patient oriented x3 and no limitations GENERAL APPEARANCE: cooperative, comfortable and well developed ORIENTATION/CONSCIOUSNESS: Yes awake, Yes oriented to person, Yes oriented to place and Yes oriented to time HENMT: COMMON NORMALS: normocephalic, atraumatic and hearing grossly normal bilaterally HEAD & SCALP: normocephalic and atraumatic THROAT: posterior oropharynx normal Eye: COMMON NORMALS: Equal, round and reactive pupils present, EOMs intact bilaterally and conjunctivae normal CONJUNCTIVA: Yes conjunctivae normal PUPIL: Yes Equal, round and reactive pupils present Neck/C-Spine: COMMON NORMALS: full ROM, supple and no JVD Chest: COMMONS NORMALS: normal inspection of the chest CHEST: Yes Symmetrical chest wall rise Resp: COMMON NORMALS: normal respiratory effort, No retractions, No use of accessory muscles and clear to auscultation bilaterally EFFORT & INSPECTION: Yes able to speak in complete sentences and Yes symmetric chest movement AUSCULTATION: clear to auscultation bilaterally Cardio: COMMON NORMALS: no JVD, No clicks present (Cardio), No murmurs present (Cardio) and No rub (Cardio) RATE: tachycardic RHYTHM: abnormal rhythm irregularly irregular GI: COMMON NORMALS: Normal to inspection, nondistended, normoactive bowel sounds present, Soft to palpation and non-tender INSPECTION: Yes central obesity AUSCULTATION: Yes normoactive bowel sounds PALPATION: Yes Soft to palpation RECTAL EXAM: Yes deferred Extremity: COMMON NORMALS: normal to inspection, full ROM and capillary refill normal Neuro: COMMON NORMALS: patient oriented x3, moves all extremities, no focal motor deficits and no sensory deficits noted SENSORIUM/ORIENTATION: Yes oriented to person, Yes oriented to place and Yes oriented to time Psych: COMMON NORMALS: mental status grossly normal and Normal thought process present THOUGHT PROCESS: Normal thought process present Skin: COMMON NORMALS: no rashes or lesions noted GENERAL SKIN EXAM: no rashes or lesions noted Course Vital Signs: Vital signs: Vital Signs Temperature 97.8 F 06/21/23 00:15 Pulse Rate 93 06/21/23 02:53 Respiratory Rate 22 H 06/21/23 02:53 Blood Pressure 165/96 06/21/23 02:53 Pulse Oximetry 97 06/21/23 02:53 Oxygen Delivery Me thod Room Air 06/21/23 01:07 MDM - SOB/Dyspnea Lab Data 06/21/23 00:35 06/21/23 00:35 Labs/Radiology: Radiology Impressions Chest X-Ray 06/21/23 00:23 IMPRESSION: Peribronchial cuffing, indistinct pulmonary vasculature and increased interstitial opacities in the lower thoraces suggests pulmonary edema. Laboratory Results WBC 7.94 10^3/uL (3.29-11.43) 06/21/23 00:35 RBC 4.10 10^6/uL (3.85-5.65) 06/21/23 00:35 Hgb 14.30 g/dL (11.27-16.99) 06/21/23 00:35 Hct 42.2 % (37-53) 06/21/23 00:35 MCV 102.9 fl (82-101) H 06/21/23 00:35 MCH 34.9 pg (27-33) H 06/21/23 00:35 MCHC 33.9 g/dL (30-55) 06/21/23 00:35 RDW 13.9 % (12.1-15.1) 06/21/23 00:35 Plt Count 192 10^3/cmm (157-399) 06/21/23 00:35 MPV 10.4 fL (7.4-10.4) 06/21/23 00:35 Neut % (Auto) 70.5 % 06/21/23 00:35 Lymph % (Auto) 18.6 % 06/21/23 00:35 [place] % (Auto) 8.7 % 06/21/23 00:35 Eos % (Auto) 1.4 % 06/21/23 00:35 Baso % (Auto) 0.3 % 06/21/23 00:35 Neut # (Auto) 5.60 10^3/uL (1.8-7.7) 06/21/23 00:35 Lymph # (Auto) 1.5 10^3/uL (0.8-4.8) 06/21/23 00:35 [place] # (Auto) 0.7 10^3/uL (0.2-0.9) 06/21/23 00:35 Eos # (Auto) 0.1 10^3/uL (0.0-0.8) 06/21/23 00:35 Baso # (Auto) 0.0 10^3/uL (0.0-0.1) 06/21/23 00:35 Nucleated RBC % (auto) 0 % 06/21/23 00:35 Nucleated RBCs # 0.0 /100WBC 06/21/23 00:35 Sodium 137 mmol/L (136-145) 06/21/23 00:35 Potassium 4.3 mmol/L (3.5-5.1) 06/21/23 00:35 Chloride 101 mmol/L (98-107) 06/21/23 00:35 Carbon Dioxide 24 mmol/L (22-29) 06/21/23 00:35 Anion Gap 16.3 (5-19) 06/21/23 00:35 BUN 15 mg/dL (8-23) 06/21/23 00:35 Creatinine 1.3 mg/dL (0.7-1.2) H 06/21/23 00:35 GFR Calculation Not Reportable 06/21/23 00:35 Glucose 125 mg/dL (65-115) H 06/21/23 00:35 Calculated Osmolality 286 mOsm/kg (285-295) 06/21/23 00:35 Calcium 9.0 mg/dL (8.5-10.5) 06/21/23 00:35 Total Bilirubin 1.2 mg/dL (0.15-1.2) 06/21/23 00:35 AST 14 U/L (0-40) 06/21/23 00:35 ALT 7 U/L (0-41) 06/21/23 00:35 Alkaline Phosphatase 79 U/L (40-130) 06/21/23 00:35 NT-Pro-B Natriuret Pep 5600 pg/mL (0-450) H 06/21/23 00:35 Total Protein 6.9 g/dL (6.6-8.7) 06/21/23 00:35 Albumin 3.8 g/dL (3.5-5.2) 06/21/23 00:35 Globulin 3.1 g/dL (1.3-4.6) 06/21/23 00:35 Influenza Type A Ag negative (Negative) 06/21/23 00:53 Influenza Type B Ag negative (Negative) 06/21/23 00:53 SARS-CoV-2 Ag (Rapid) negative (Negative) 06/21/23 00:53 All radiology interpretation(s) finalized by discharge Discharge Plan Discharge Patient Disposition: Home Clinical Impression: Chronic episodic atrial fibrillation, Noncompliance with medication regimen Congestive heart failure Qualifiers: Heart failure type: unspecified Heart failure chronicity: chronic Qualified Code(s): I50.9 - Heart failure, unspecified Condition: Stable Prescriptions: No Action aspirin 81 mg Tablet,Delayed Release (Dr/Ec) 81 mg PO QAM vitamin E 268 mg (400 unit) Capsule 268 mg PO QAM losartan 50 mg tablet 50 mg PO QAM apixaban 5 mg tablet 5 mg PO QAM furosemide [Lasix] 20 mg tablet 20 mg PO DAILY Qty: 30 0RF metoprolol succinate [Toprol XL] 25 mg tablet extended release 24 hr 25 mg PO BID Qty: 60 0RF Discharge Orders: Discharge ED (Routine); Ordered 06/21/23 Ordered By: Remy Melgoza Referrals: Denis Nowak MD [Primary Care Provider] - 1 week Patient Instructions: Dependent Edema, Congestive Heart Failure, Pulmonary Edema (ED) Activity Restrictions/Additional Instructions: Your evaluation in ER revealed you are overloaded with fluid. Please take your medicine you have at home as directed daily inconsistently. Your furosemide is a diuretic and will help you urinate off the excess fluid in your body and thus help you breathe the the easier and swell less. If you are noncompliant he will become more edematous and more short of breath. Please follow-up with your family practice physician for further evaluation and treatment within the next 7 days. Coding Level of Care Code ED Mental Health Unit Lead Psychologist for [facility] Documented by User: Remy Melgoza DO 06/21/23 01:59 HPI - SOB/Dyspnea General: Chief Complaint: Shortness of Breath/Dyspnea Stated Complaint: SOB Time Seen by Provider: 06/21/23 00:22 [facility] ED PFSH: Medical History Left ureteral calculus Renal mass Calculus of kidney with calculus of ureter History of atrial fibrillation Dyslipidemia (high LDL; low HDL) Chronic episodic atrial fibrillation Benign essential HTN Atherosclerotic heart disease of [place] coronary artery without angina pectoris Insomnia History of colon polyps Lumbar disc disease GERD (gastroesophageal reflux disease) Fibromyalgia Surgical History History of cardiac cath History of cholecystectomy History of shoulder surgery History of colonoscopy Family History Brother No problems noted. Father , at age 93 Dementia Parkinson disease Mother , at age 75 No problems noted. Denies family history of Diabetes CAD (coronary artery disease) Clotting disorder Chronic kidney disease (CKD) Suicide Anesthesia complication Bleeding disorder Lung disease Cancer Stroke Social History Smoking and tobacco/nicotine status: never used tobacco/nicotine Alcohol intake: current Alcohol intake frequency: holidays/special occasions only Substance/Drug Use: never Housing: House Marital status: / Current occupational status: retired Course Vital Signs: Vital signs: Vital Signs Temperature 97.8 F 06/21/23 00:15 Pulse Rate 93 06/21/23 02:53 Respiratory Rate 22 H 06/21/23 02:53 Blood Pressure 165/96 06/21/23 02:53 Pulse Oximetry 97 06/21/23 02:53 Oxygen Delivery Hi thod Room Air 06/21/23 01:07 MDM - SOB/Dyspnea Medical Decision Making Patient was transferred over to vt during shift change. Lab work was reviewed and elevated BNP of 5600, patient normally runs about 2000, patient is noncompliant with medication. Chest x-ray showed interstitial opacities consistent with pulmonary edema. Patient remained on room air saturating oxygen of 97%. Patient was given additional dose of 40 mg of Lasix IV as well as 10 mg of hydralazine for his high blood pressure. Patient be discharged home instructed to take the medicine he has at home consistently as directed. Lab Data 06/21/23 00:35 06/21/23 00:35 Labs/Radiology: Radiology Impressions Chest X-Ray 06/21/23 00:23 IMPRESSION: Peribronchial cuffing, indistinct pulmonary vasculature and increased interstitial opacities in the lower thoraces suggests pulmonary edema. Laboratory Results WBC 7.94 10^3/uL (3.29-11.43) 06/21/23 00:35 RBC 4.10 10^6/uL (3.85-5.65) 06/21/23 00:35 Hgb 14.30 g/dL (11.27-16.99) 06/21/23 00:35 Hct 42.2 % (37-53) 06/21/23 00:35 MCV 102.9 fl (82-101) H 06/21/23 00:35 MCH 34.9 pg (27-33) H 06/21/23 00:35 MCHC 33.9 g/dL (30-55) 06/21/23 00:35 RDW 13.9 % (12.1-15.1) 06/21/23 00:35 Plt Count 192 10^3/cmm (157-399) 06/21/23 00:35 MPV 10.4 fL (7.4-10.4) 06/21/23 00:35 Neut % (Auto) 70.5 % 06/21/23 00:35 Lymph % (Auto) 18.6 % 06/21/23 00:35 [place] % (Auto) 8.7 % 06/21/23 00:35 Eos % (Auto) 1.4 % 06/21/23 00:35 Baso % (Auto) 0.3 % 06/21/23 00:35 Neut # (Auto) 5.60 10^3/uL (1.8-7.7) 06/21/23 00:35 Lymph # (Auto) 1.5 10^3/uL (0.8-4.8) 06/21/23 00:35 [place] # (Auto) 0.7 10^3/uL (0.2-0.9) 06/21/23 00:35 Eos # (Auto) 0.1 10^3/uL (0.0-0.8) 06/21/23 00:35 Baso # (Auto) 0.0 10^3/uL (0.0-0.1) 06/21/23 00:35 Nucleated RBC % (auto) 0 % 06/21/23 00:35 Nucleated RBCs # 0.0 /100WBC 06/21/23 00:35 Sodium 137 mmol/L (136-145) 06/21/23 00:35 Potassium 4.3 mmol/L (3.5-5.1) 06/21/23 00:35 Chloride 101 mmol/L (98-107) 06/21/23 00:35 Carbon Dioxide 24 mmol/L (22-29) 06/21/23 00:35 Anion Gap 16.3 (5-19) 06/21/23 00:35 BUN 15 mg/dL (8-23) 06/21/23 00:35 Creatinine 1.3 mg/dL (0.7-1.2) H 06/21/23 00:35 GFR Calculation Not Reportable 06/21/23 00:35 Glucose 125 mg/dL (65-115) H 06/21/23 00:35 Calculated Osmolality 286 mOsm/kg (285-295) 06/21/23 00:35 Calcium 9.0 mg/dL (8.5-10.5) 06/21/23 00:35 Total Bilirubin 1.2 mg/dL (0.15-1.2) 06/21/23 00:35 AST 14 U/L (0-40) 06/21/23 00:35 ALT 7 U/L (0-41) 06/21/23 00:35 Alkaline Phosphatase 79 U/L (40-130) 06/21/23 00:35 NT-Pro-B Natriuret Pep 5600 pg/mL (0-450) H 06/21/23 00:35 Total Protein 6.9 g/dL (6.6-8.7) 06/21/23 00:35 Albumin 3.8 g/dL (3.5-5.2) 06/21/23 00:35 Globulin 3.1 g/dL (1.3-4.6) 06/21/23 00:35 Influenza Type A Ag negative (Negative) 06/21/23 00:53 Influenza Type B Ag negative (Negative) 06/21/23 00:53 SARS-CoV-2 Ag (Rapid) negative (Negative) 06/21/23 00:53 Discharge Plan Discharge Patient Disposition: Home Clinical Impression: Chronic episodic atrial fibrillation, Noncompliance with medication regimen Congestive heart failure Qualifiers: Heart failure type: unspecified Heart failure chronicity: chronic Qualified Code(s): I50.9 - Heart failure, unspecified Condition: Stable Prescriptions: No Action aspirin 81 mg Tablet,Delayed Release (Dr/Ec) 81 mg PO QAM vitamin E 268 mg (400 unit) Capsule 268 mg PO QAM losartan 50 mg tablet 50 mg PO QAM apixaban 5 mg tablet 5 mg PO QAM furosemide [Lasix] 20 mg tablet 20 mg PO DAILY Qty: 30 0RF metoprolol succinate [Toprol XL] 25 mg tablet extended release 24 hr 25 mg PO BID Qty: 60 0RF Discharge Orders: Discharge ED (Routine); Ordered 06/21/23 Ordered By: Remy Melgoza Referrals: Denis Nowak MD [Primary Care Provider] - 1 week Patient Instructions: Dependent Edema, Congestive Heart Failure, Pulmonary Edema (ED) Activity Restrictions/Additional Instructions: Your evaluation in ER revealed you are overloaded with fluid. Please take your medicine you have at home as directed daily inconsistently. Your furosemide is a diuretic and will help you urinate off the excess fluid in your body and thus help you breathe the the easier and swell less. If you are noncompliant he will become more edematous and more short of breath. Please follow-up with your family practice physician for further evaluation and treatment within the next 7 days. Coding Level of Care Code ED Mental Health Unit Lead Psychologist for [facility]
[2023-06-21 00:40] VITALS: BP 181/136; PULSE 107; RESP 20; O2SAT 99
[2023-06-21] MEDS: methylPREDNISolone sod succ 125 mg/2 mL INJ IVP (00:40)
[2023-06-21] MEDS: ketorolac 60 mg/2 mL INJ IM (00:41)
[2023-06-21 00:56] LABS: Basophils % 0.3 %; Eosinophils # 0.1 10^3/uL (0.0-0.8); Eosinophils % 1.4 %; Hematocrit 42.2 % (37-53); Lymphocytes # 1.5 10^3/uL (0.8-4.8); Lymphocytes % 18.6 %; Mean Corpuscular HGB Conc 33.9 g/dL (30-55); Mean Corpuscular Hemoglobin 34.9 pg (27-33); Mean Corpuscular Volume 102.9 fl (82-101); Mean Platelet Volume 10.4 fL (7.4-10.4); Monocytes # 0.7 10^3/uL (0.2-0.9); Monocytes % 8.7 %; Neutrophils % 70.5 %; Nucleated Red Blood Cells % 0 %; Platelet Count 192 10^3/cmm (157-399); Red Cell Distribution Width 13.9 % (12.1-15.1); White Blood Count 7.94 10^3/uL (3.29-11.43)
[2023-06-21 01:07] VITALS: PULSE 84; RESP 17; O2SAT 97
[2023-06-21] MEDS: ipratropium-albuterol 3 mL Neb INHALATION (01:07)
[2023-06-21] MEDS: FUROsemide 10 mg/mL SDV 4mL 40 MG IVP (01:25)
[2023-06-21 01:26] LABS: Alanine Aminotransferase 7 U/L (0-41); Albumin Level 3.8 g/dL (3.5-5.2); Alkaline Phosphatase 79 U/L (40-130); Anion Gap 16.3 (5-19); Aspartate Amino Transferase 14 U/L (0-40); Blood Urea Nitrogen 15 mg/dL (8-23); Carbon Dioxide 24 mmol/L (22-29); Chloride 101 mmol/L (98-107); Creatinine Clr Calc Pharmacy 46.2641; Globulin 3.1 g/dL (1.3-4.6); Glucose 125 mg/dL (65-115); NT Pro B Type Natriuretic Pept 5600 pg/mL (0-450); Osmolality Calculated 286 mOsm/kg (285-295); Potassium 4.3 mmol/L (3.5-5.1); Sodium 137 mmol/L (136-145); Total Bilirubin 1.2 mg/dL (0.15-1.2); Total Protein 6.9 g/dL (6.6-8.7)
[2023-06-21 01:38] LABS: Influenza A by IFA negative (Negative); Influenza B by IFA negative (Negative); SARS Covid-2 Antigen negative (Negative)
[2023-06-21] MEDS: hyDRALAzine 20 mg/mL INJ 1 mL 10 MG IVP (01:59)
[2023-06-21 02:53] VITALS: BP 165/96; PULSE 93; RESP 22; O2SAT 97
== END 2023-06-21 02:26 | disposition home or self-care (01) ==
PROVIDERS: Emergency Provider Physician Assistant; PCP Internal Medicine
DX: I11.0 Hypertensive heart disease with heart failure (principal); I50.9 Heart failure, unspecified; I48.20 Chronic atrial fibrillation, unspecified; Z91.148 Patient's other noncompliance with medication regimen for other reason; Z79.82 Long term (current) use of aspirin; E78.5 Hyperlipidemia, unspecified; I25.10 Atherosclerotic heart disease of native coronary artery without angina pectoris
CPT/HCPCS: 71045; 80053; 83880; 85025; 87426; 87804; 93005; 94640; 96372; 96374; 96375; 99285; J0360; J1885; J1940; J2919

== ENCOUNTER 2023-06-25 04:43 | Observation (INO) | payer MEDICARE, MEDICAID, SELFPAY ==
[2023-06-25] VITALS (12 sets, daily range): BP systolic 128–214; BP diastolic 81–150; PULSE 69–114; RESP 15–23; TEMP 36.3–36.7; O2SAT 93–97; BMI 30.4; BMI 28.8
--- NOTE | 2023-06-25 04:51 | ECG_ITS ---
[facility] Test Date: 2023-06-25 Pat Name: David Orozco Department: Room: 106 Gender: Male Glass Blower: : 1940 Requested By: Augustine Field Order Number: [id number] Jessica MD: Js Hendricks M.D. Measurements Intervals [place] Rate: 110 P: 0 AL: 0 QRS: 18 QRSD: 86 T: 59 QT: 307 QTc: 417 Interpretive Statements ATRIAL FIBRILLATION WITH RAPID VENTRICULAR RESPONSE MINIMAL ST DEPRESSION [0.025+ mV ST DEPRESSION] ABNORMAL RHYTHM ECG Compared to ECG 06/21/2023 00:11:49 ST (T wave) deviation now present Myocardial infarct finding no longer present Electronically Signed On 06-25-2023 15:26:54 CDT by Js Hendricks M.D. [id number] f
--- NOTE | 2023-06-25 05:04 | XRR_ITS ---
PROCEDURE INFORMATION: Exam: XR Chest Exam date and time: 06/25/2023 5:18 AM Age: 82 years old Clinical indication: Shortness of breath; Additional info: Cxp TECHNIQUE: Imaging protocol: Radiologic exam of the chest. Views: 1 view. COMPARISON: CR (CHEST, ) 06/21/2023 12:34 AM FINDINGS: Lungs: Prominent interstitial lung markings are similar to comparison imaging. Negative for consolidation. Pleural spaces: Unremarkable. No pleural effusion. No pneumothorax. Heart/Mediastinum: Cardiomegaly. Bones/joints: Unremarkable. XR/XR chest 1V portable [id number] IMPRESSION: 1. Mild interstitial edema. 2. No significant interval change.
--- NOTE | 2023-06-25 05:04 | W.ED.SOB ---
HPI - SOB/Dyspnea General: Chief Complaint: Shortness of Breath/Dyspnea Stated Complaint: sob, back and shoulder blade pain Time Seen by Provider: 06/25/23 05:04 History of Present Illness: HPI Narrative: 82-year-old male presents emergency department with complaints of shortness of breath and chest pain/pressure in the middle of the chest radiating to the middle of his back. He states he has a history of irregular heartbeat and has been to the emergency department several times for similar complaints. Patient states he sees a primary care physician in [facility] but states he has not seen a primary care provider for many months. He states that he was seen here in the emergency department on June 20, 2023 and states he has not followed up with his primary care provider after that ER discharge. He states that he feels like he has had extra heartbeats this morning that woke him up from sleep. He states that he has continued to feel short of breath since that time. He denies nausea, vomiting, fevers chills or night sweats. He denies dizziness or lightheaded feeling. Associated symptoms: Reports chest pain and palpitations Review of Systems General: Reports: 10 or more systems reviewed and unremarkable except in HPI and below Card: Reports: chest pain, palpitations and irregular heart rhythm Resp: Reports: dyspnea; Denies: non-productive cough or wheezing [facility] ED PFSH: Medical History Left ureteral calculus Renal mass Calculus of kidney with calculus of ureter History of atrial fibrillation Dyslipidemia (high LDL; low HDL) Chronic episodic atrial fibrillation Benign essential HTN Atherosclerotic heart disease of [place] coronary artery without angina pectoris Insomnia History of colon polyps Lumbar disc disease GERD (gastroesophageal reflux disease) Fibromyalgia Surgical History History of cardiac cath History of cholecystectomy History of shoulder surgery History of colonoscopy Family History Brother No problems noted. Father , at age 93 Dementia Parkinson disease Mother , at age 75 No problems noted. Denies family history of Diabetes CAD (coronary artery disease) Clotting disorder Chronic kidney disease (CKD) Suicide Anesthesia complication Bleeding disorder Lung disease Cancer Stroke Social History Smoking and tobacco/nicotine status: never used tobacco/nicotine Alcohol intake: current Alcohol intake frequency: holidays/special occasions only Substance/Drug Use: never Housing: House Marital status: / Current occupational status: retired Physical Exam Narrative: EXAM NARRATIVE: Constitutional: the patient appears well nourished and with normal development. Vital signs reviewed as documented. No acute distress at present. HENMT: Normocephalic, atraumatic. External ears normal appearance without drainage. Nose without drainage, normal appearance. Mucus membranes moist. Neck is supple, No jugular venous distension, trachea is midline, no appreciable carotid bruits. No lymphadenopathy. No meningeal signs. Flexion, extension and lateral rotation is without pain. Eyes: Pupils are equal, round, reactive to light and accommodation. No scleral icterus. Extra-ocular movement are intact. Thorax is symmetrical and with equal rise and fall with respirations. Resp: Lungs are clear to auscultation. No wheezes, rales, crackles or ronchi at present. Cardio: Irregularly irregular rhythm consistent with atrial fibrillation with rapid ventricular response. Patient blood pressure is significantly elevated to over a systolic of 210.. Positive S1, S2. No appreciable murmurs, rubs or gallops. GI: Abdominal exam reveals normal bowel sounds to all quadrants. No organomegaly. No obvious palpable masses noted. No hepatomegally appreciated. Soft, non-tender to palpation. Extremity: Extremities are non-edematous and both femoral and pedal pulses are 2+ and equal bilaterally. Moves all extremities well, sensation in all extremities. Neuro: Alert and oriented x4, person, place, time and situation. Cranial nerves II through XII are grossly intact, there is no focal neurological deficits that I can appreciate at present. Sensation intact to all extremities. 2-point discrimination intact. Light touch intact to all extremities. Motor strength in the upper and lower extremities are equal and bilateral 5/5. Psych: Cooperative, calm, normal thought process, appropriate judgment. Skin: No lesions, rashes. No gross abnormalities noted. Back: Symmetrical, no obvious deformity, Course Vital Signs: Vital signs: Vital Signs Temperature 97.7 F 06/26/23 00:00 Pulse Rate 79 06/26/23 00:00 Respiratory Rate 20 H 06/26/23 00:00 Blood Pressure 102/82 06/26/23 00:00 Pulse Oximetry 92 06/26/23 00:00 Oxygen Delivery Me thod Nasal Cannula 06/26/23 00:00 MDM - SOB/Dyspnea Medical Decision Making Physical exam completed and documented I will obtain a CBC and CMP as well as serial cardiac enzymes and EKGs. I reviewed the patient's previous medical record it does appear that he is noncompliant with his medications. I will obtain a chest x-ray as well as provide the patient cardiac dose aspirin and provide him Cardizem IV bolus and Cardizem IV drip. Medical Records I reviewed the patient's medical records. Lab Data I reviewed the patient's lab results. 06/25/23 04:57 06/25/23 04:57 Labs/Radiology: Radiology Impressions Chest X-Ray 06/25/23 05:04 IMPRESSION: 1. Mild interstitial edema. 2. No significant interval change. Laboratory Results WBC 8.77 10^3/uL (3.29-11.43) 06/25/23 04:57 RBC 4.21 10^6/uL (3.85-5.65) 06/25/23 04:57 Hgb 14.90 g/dL (11.27-16.99) 06/25/23 04:57 Hct 43.3 % (37-53) 06/25/23 04:57 MCV 102.9 fl (82-101) H 06/25/23 04:57 MCH 35.4 pg (27-33) H 06/25/23 04:57 MCHC 34.4 g/dL (30-55) 06/25/23 04:57 RDW 14.4 % (12.1-15.1) 06/25/23 04:57 Plt Count 203 10^3/cmm (157-399) 06/25/23 04:57 MPV 9.7 fL (7.4-10.4) 06/25/23 04:57 Neut % (Auto) 68.0 % 06/25/23 04:57 Lymph % (Auto) 19.2 % 06/25/23 04:57 [place] % (Auto) 9.6 % 06/25/23 04:57 Eos % (Auto) 2.4 % 06/25/23 04:57 Baso % (Auto) 0.3 % 06/25/23 04:57 Neut # (Auto) 5.97 10^3/uL (1.8-7.7) 06/25/23 04:57 Lymph # (Auto) 1.7 10^3/uL (0.8-4.8) 06/25/23 04:57 [place] # (Auto) 0.8 10^3/uL (0.2-0.9) 06/25/23 04:57 Eos # (Auto) 0.2 10^3/uL (0.0-0.8) 06/25/23 04:57 Baso # (Auto) 0.0 10^3/uL (0.0-0.1) 06/25/23 04:57 Nucleated RBC % (auto) 0 % 06/25/23 04:57 Nucleated RBCs # 0.0 /100WBC 06/25/23 04:57 PT 14.50 SECONDS (12.1-14.9) 06/25/23 04:57 INR 1.10 (0.8-1.2) 06/25/23 04:57 Sodium 137 mmol/L (136-145) 06/25/23 04:57 Potassium 4.0 mmol/L (3.5-5.1) 06/25/23 04:57 Chloride 104 mmol/L (98-107) 06/25/23 04:57 Carbon Dioxide 22 mmol/L (22-29) 06/25/23 04:57 Anion Gap 15.0 (5-19) 06/25/23 04:57 BUN 16 mg/dL (8-23) 06/25/23 04:57 Creatinine 1.1 mg/dL (0.7-1.2) 06/25/23 04:57 GFR Calculation Not Reportable 06/25/23 04:57 Glucose 110 mg/dL (65-115) 06/25/23 04:57 Calculated Osmolality 286 mOsm/kg (285-295) 06/25/23 04:57 Calcium 8.7 mg/dL (8.5-10.5) 06/25/23 04:57 Total Bilirubin 1.1 mg/dL (0.15-1.2) 06/25/23 04:57 AST 14 U/L (0-40) 06/25/23 04:57 ALT 10 U/L (0-41) 06/25/23 04:57 Alkaline Phosphatase 73 U/L (40-130) 06/25/23 04:57 Troponin T Baseline 12 ng/L (0-15) 06/25/23 04:57 Troponin T 120 Minute 12.21 ng/L (0-15) 06/25/23 06:50 Delta Troponin T 0.21 ABS# (0-10) 06/25/23 06:50 NT-Pro-B Natriuret Pep 2677 pg/mL (0-450) H 06/25/23 04:57 Total Protein 7.4 g/dL (6.6-8.7) 06/25/23 04:57 Albumin 3.8 g/dL (3.5-5.2) 06/25/23 04:57 Globulin 3.6 g/dL (1.3-4.6) 06/25/23 04:57 TSH 5.74 uIU/mL (0.27-4.20) H 06/25/23 04:57 Urine Color Yellow (Yellow) 06/25/23 05:46 Urine Appearance Clear (CLEAR) 06/25/23 05:46 Urine pH 7 (5-7) 06/25/23 05:46 Ur Specific [place] 1.010 (1.005-1.030) 06/25/23 05:46 Urine Protein Neg (Negative) 06/25/23 05:46 Urine Glucose (UA) Norm (Normal) 06/25/23 05:46 Urine Ketones Negative (Negative) 06/25/23 05:46 Urine Blood 2+ (Negative) H 06/25/23 05:46 Urine Nitrate Negative (Negative) 06/25/23 05:46 Urine Bilirubin Neg (Negative) 06/25/23 05:46 Urine Urobilinogen Neg mg/dL (Negative) 06/25/23 05:46 Ur Leukocyte Esterase Negative (Negative) 06/25/23 05:46 Urine RBC 0-4 /hpf (0-2) H 06/25/23 05:46 Urine WBC None /hpf (0-5) 06/25/23 05:46 Ur Squamous Epith Cells None /hpf (0-5) 06/25/23 05:46 Amorphous Sediment Not Reportable 06/25/23 05:46 Urine Bacteria Trace /hpf (NONE) 06/25/23 05:46 Urine Mucus 1+ /hpf 06/25/23 05:46 All radiology interpretation(s) finalized by discharge EKG Data EKG 1: Interpretation: Twelve-lead EKG obtained at 0 451 and reviewed at 0 452 demonstrates atrial fibrillation with a rapid ventricular response with a ventricular rate of 110 bpm, QRS duration is 86 QT 307 QTc [address] elevation or depression to demonstrate acute ischemia or infarction at present. Discharge Plan Discharge Patient Disposition: Admitted As Inpatient Admit Provider: Chris Murdock Clinical Impression: Atrial fibrillation with rapid ventricular response, Noncompliance with medication regimen, Acute dyspnea Condition: Stable Coding Level of Care Code ED Floor Refinisher for Victor M Hale
[2023-06-25] MEDS: dilTIAZem 5 mg/mL SDV 5 mL 20 MG IVP (05:12)
[2023-06-25] MEDS: aspirin 81 mg Chew Tablet 324 MG PO (05:12)
[2023-06-25 05:14] LABS: Basophils % 0.3 %; Eosinophils # 0.2 10^3/uL (0.0-0.8); Eosinophils % 2.4 %; Hematocrit 43.3 % (37-53); Lymphocytes # 1.7 10^3/uL (0.8-4.8); Lymphocytes % 19.2 %; Mean Corpuscular HGB Conc 34.4 g/dL (30-55); Mean Corpuscular Hemoglobin 35.4 pg (27-33); Mean Corpuscular Volume 102.9 fl (82-101); Mean Platelet Volume 9.7 fL (7.4-10.4); Monocytes # 0.8 10^3/uL (0.2-0.9); Monocytes % 9.6 %; Neutrophils # 5.97 10^3/uL (1.8-7.7); Nucleated Red Blood Cells % 0 %; Platelet Count 203 10^3/cmm (157-399); Red Blood Count 4.21 10^6/uL (3.85-5.65); Red Cell Distribution Width 14.4 % (12.1-15.1); White Blood Count 8.77 10^3/uL (3.29-11.43)
[2023-06-25] MEDS: dilTIAZem 100 MG in sodium chloride 0.9% (add-van) 100 ML IV (05:34)
[2023-06-25 05:35] LABS: Troponin(5th) Baseline 12 ng/L (0-15)
[2023-06-25 05:39] LABS: Alanine Aminotransferase 10 U/L (0-41); Albumin Level 3.8 g/dL (3.5-5.2); Alkaline Phosphatase 73 U/L (40-130); Aspartate Amino Transferase 14 U/L (0-40); Blood Urea Nitrogen 16 mg/dL (8-23); Calcium 8.7 mg/dL (8.5-10.5); Carbon Dioxide 22 mmol/L (22-29); Chloride 104 mmol/L (98-107); Creatinine Clr Calc Pharmacy 54.6758; Globulin 3.6 g/dL (1.3-4.6); Glucose 110 mg/dL (65-115); NT Pro B Type Natriuretic Pept 2677 pg/mL (0-450); Osmolality Calculated 286 mOsm/kg (285-295); Sodium 137 mmol/L (136-145); Total Bilirubin 1.1 mg/dL (0.15-1.2); Total Protein 7.4 g/dL (6.6-8.7)
[2023-06-25 05:59] LABS: Add Urine Culture? No; Add Urine Microscopic? YES; Bacteria Urine TRACE /hpf; Bilirubin Urine Neg (Negative); Blood Urine 2+ (Negative); Glucose Urine UA Norm (Normal); Ketones Urine Negative (Negative); Leukocyte Esterase Urine Negative (Negative); Mucus Urine 1+ /hpf; Nitrate Urine Negative (Negative); Protein Urine Neg (Negative); RBC Urine 0-4 /hpf (0-2); Urine Appearance Clear (CLEAR); Urine Color Yellow (Yellow); Urobilinogen Urine Neg (Negative); pH Urine 7 (5-7)
--- NOTE | 2023-06-25 06:00 | PC.NURSE ---
Ntfd ER Provider Dr Field that heart rate is between 80-90s which is below titrate protocol of 110. Dr Field advised to leave pt at current starting rate until heart rate is in mid 70s then begin to titrate down
--- NOTE | 2023-06-25 06:55 | ECG_ITS ---
[facility] Test Date: 2023-06-25 Pat Name: David Orozco Department: Room: Gender: Male [employer]izer: : 1940 Requested By: Augustine Field Order Number: [id number] Lopez MD: Js Hendricks M.D. Measurements Intervals [place] Rate: 86 P: 0 CA: 0 QRS: 28 QRSD: 89 T: 46 QT: 369 QTc: 443 Interpretive Statements ATRIAL FIBRILLATION MINIMAL ST DEPRESSION [0.025+ mV ST DEPRESSION] ABNORMAL RHYTHM ECG Compared to ECG 06/21/2023 00:11:49 ST (T wave) deviation now present Myocardial infarct finding no longer present Electronically Signed On 06-25-2023 15:30:29 CDT by Js Hendricks M.D. [id number]
[2023-06-25 07:14] LABS: Troponin 5 2HR 12.21 ng/L (0-15); Troponin 5 2HR Delta 0.21 ABS# (0-10)
--- NOTE | 2023-06-25 08:51 | PM.HP ---
Documented by User: Bala Courtney, [facility] 06/25/23 09:49 Providers/Chief Complaint Admitting Physician: Chris Murdock DO Primary Care Provider: Denis Nowak MD Chief Complaint: sob, back and shoulder blade pain History of Present Illness David Orozco is a 82 year old male who presents to the ED this morning with shortness of breath, chest pain and pressure radiating to the back, onset approximately 1 hour prior to his admission. He endorses greater than 4 episodes in the past 3 months. He states that these episodes can happen randomly, even while at rest, and usually resolve within 1 to 2 hours of onset. He reports that he has been taking his Eliquis, aspirin, losartan, and his vitamin E, however, he has not been taking his metoprolol or his furosemide as prescribed. He has history significant for atrial fibrillation with RVR, acute diastolic heart failure, hypothyroidism, hyperlipidemia, GERD, medication noncompliance, and lumbar disc disease. At the time of the interview he reports that his chest pain and shortness of breath have resolved, and he has been on his diltiazem drip prior to his transfer from the ER to the unit. He reports no other concerns for this visit. At the time of the interview he denies any headache, dizziness, changes in vision, chest pain or palpitation, shortness of breath, nausea, vomiting, diarrhea, constipation, extremity swelling. Medications/Allergies Home Medications Medication Instructions Recorded Confirmed Last Taken Type aspirin 81 mg tablet,delayed 81 mg PO QAM 05/26/20 06/25/23 06/24/23 History release vitamin E 268 mg (400 unit) capsule 268 mg PO QAM 02/09/23 06/25/23 06/24/23 History apixaban 5 mg tablet 5 mg PO QAM 05/20/23 06/25/23 06/24/23 History losartan 50 mg tablet 50 mg PO QAM 05/20/23 06/25/23 06/24/23 History furosemide 20 mg tablet (Lasix) 20 mg PO DAILY #30 tabs 05/21/23 06/25/23 06/24/23 Rx metoprolol succinate 25 mg 25 mg PO BID #60 tabs 06/03/23 06/25/23 06/24/23 Rx tablet,extended release 24 hr (Toprol XL) potassium chloride 8 mEq 8 meq PO QAM 06/25/23 06/25/23 06/24/23 History tablet,extended release Allergies Allergy/AdvReac Type Severity Reaction Status Date / Time No Known Allergies Allergy Verified 06/20/23 07:23 PFSH Acute PFSH: Medical History Left ureteral calculus Renal mass Calculus of kidney with calculus of ureter History of atrial fibrillation Dyslipidemia (high LDL; low HDL) Chronic episodic atrial fibrillation Benign essential HTN Atherosclerotic heart disease of [place] coronary artery without angina pectoris Insomnia History of colon polyps Lumbar disc disease GERD (gastroesophageal reflux disease) Fibromyalgia Surgical History History of cardiac cath History of cholecystectomy History of shoulder surgery History of colonoscopy Family History Brother No problems noted. Father , at age 93 Dementia Parkinson disease Mother , at age 75 No problems noted. Denies family history of Diabetes CAD (coronary artery disease) Clotting disorder Chronic kidney disease (CKD) Suicide Anesthesia complication Bleeding disorder Lung disease Cancer Stroke Social History Smoking and tobacco/nicotine status: never used tobacco/nicotine Alcohol intake: current Alcohol intake frequency: holidays/special occasions only Substance/Drug Use: never Housing: House Marital status: / Current occupational status: retired Vitals/I&O/Wt Last Vital Signs Temp 97.9 F 06/25/23 08:28 Pulse 90 06/25/23 08:28 Resp 23 H 06/25/23 08:28 BP 150/104 06/25/23 08:28 Pulse Ox 97 06/25/23 08:28 O2 Del Method Room Air 06/25/23 08:28 Weight last 48 hrs Weight 200 lb Physical Exam Narrative: General: Comfortable looking patient resting in bed, alert and oriented, conversing appropriately, and tracking provider appropriately. HEENT: Head atraumatic, normocephalic, by visual inspection. Neck supple no thyromegaly noted. No lymphadenopathy noted. CV: Regular rate, irregular rhythm, 2 out of 6 diastolic murmur, no rubs or gallops noted. Capillary refill <2 sec. Pulm: Lungs clear to auscultation bilaterally. GI: Abdomen soft, nontender to palpitation, bowel sounds intact. Extremity: Digital clubbing noted bilaterally on both hands, no extremity swelling or edema noted. Data 06/25/23 04:57 06/25/23 04:57 Other Labs: ED labs: PT: 14.5 INR: 1.1 Calcium: 8.7 Troponin: 12.00, serial troponin 12.21 A&P Assessment and plan (1) Atrial fibrillation with rapid ventricular response: Patient's current episode, and previous episodes, are highly suggestive of atrial fibrillation with RVR. Symptoms have resolved after initiation of diltiazem drip in the ED. Shortness of breath and atrial fibrillation are possibly attributed to his acute diastolic heart failure. Patient reports inconsistent adherence to medication, specifically metoprolol, which has possibly precipitated this and his previous episodes of RVR. EKG performed in the ER revealed atrial fibrillation with RVR. Troponin: 12.00, serial troponin 12.21. Diltiazem drip started in the ED. Will continue inpatient, until home medications can be restarted, specifically the metoprolol to help control rate. Metoprolol 25 mg, p.o., twice daily?rate and blood pressure control. Aspirin 81 mg p.o. every morning?antiplatelet. Apixaban 5 mg, p.o., twice daily?antiplatelet and DVT prophylaxis. (2) Acute diastolic heart failure: Patient has a history of diastolic heart failure, with consistent elevated BNP. BNP performed in the ED was elevated, but trending appropriately with his previous elevated BNP's. Chest x-ray reveals mild interstitial edema, and consistent with previous x-rays. Patient inconsistent with home furosemide regimen. Denied taking his furosemide at home during interview. Furosemide 20 mg, p.o., daily. (3) Hypothyroid: Patient has a history of hypothyroidism, and his last TSH 1 month ago was elevated at 8.9. Will recheck TSH this visit. May need supplementation. Qualifiers: Hypothyroidism type: acquired Qualified Code(s): E03.9 - Hypothyroidism, unspecified (4) Noncompliance with medication regimen: Patient has history of inconsistent medication adherence. Spoke with patient about the importance of timely medication administration to prevent future episodes like this. Coding Level of Care Code 44253 Diagnoses Atrial fibrillation with rapid ventricular response I48.91 Acute diastolic heart failure I50.31 Acquired hypothyroidism E03.9 Hypothyroidism type: acquired Noncompliance with medication regimen Z91.148 Time Spent (min) 46 Documented by User: Jimbo Torres MD 06/25/23 09:49 Providers/Chief Complaint Admitting Physician: Jimbo Chi MD Chief Complaint: sob, back and shoulder blade pain Review of Systems General: Reports: 10 or more systems reviewed and unremarkable except in HPI and below Card: Reports: chest pain Resp: Reports: dyspnea GI: Denies: abdominal pain, nausea, hematochezia or melena Medications/Allergies Home Medications Medication Instructions Recorded Confirmed Last Taken Type aspirin 81 mg tablet,delayed 81 mg PO QAM 05/26/20 06/25/23 06/24/23 History release vitamin E 268 mg (400 unit) capsule 268 mg PO QAM 02/09/23 06/25/23 06/24/23 History apixaban 5 mg tablet 5 mg PO QAM 05/20/23 06/25/23 06/24/23 History losartan 50 mg tablet 50 mg PO QAM 05/20/23 06/25/23 06/24/23 History furosemide 20 mg tablet (Lasix) 20 mg PO DAILY #30 tabs 05/21/23 06/25/23 06/24/23 Rx metoprolol succinate 25 mg 25 mg PO BID #60 tabs 06/03/23 06/25/23 06/24/23 Rx tablet,extended release 24 hr (Toprol XL) potassium chloride 8 mEq 8 meq PO QAM 06/25/23 06/25/23 06/24/23 History tablet,extended release Allergies Allergy/AdvReac Type Severity Reaction Status Date / Time No Known Allergies Allergy Verified 06/20/23 07:23 PFSH Acute PFSH: Medical History Left ureteral calculus Renal mass Calculus of kidney with calculus of ureter History of atrial fibrillation Dyslipidemia (high LDL; low HDL) Chronic episodic atrial fibrillation Benign essential HTN Atherosclerotic heart disease of [place] coronary artery without angina pectoris Insomnia History of colon polyps Lumbar disc disease GERD (gastroesophageal reflux disease) Fibromyalgia Surgical History History of cardiac cath History of cholecystectomy History of shoulder surgery History of colonoscopy Family History Brother No problems noted. Father , at age 93 Dementia Parkinson disease Mother , at age 75 No problems noted. Denies family history of Diabetes CAD (coronary artery disease) Clotting disorder Chronic kidney disease (CKD) Suicide Anesthesia complication Bleeding disorder Lung disease Cancer Stroke Social History Smoking and tobacco/nicotine status: never used tobacco/nicotine Alcohol intake: current Alcohol intake frequency: holidays/special occasions only Substance/Drug Use: never Housing: House Marital status: / Current occupational status: retired Physical Exam Narrative: General: Comfortable looking patient resting in bed, alert and oriented, conversing appropriately, and tracking provider appropriately. HEENT: Head atraumatic, normocephalic, by visual inspection. Neck supple no thyromegaly noted. No lymphadenopathy noted. CV: irregular, irregular rhythm, 2 out of 6 diastolic murmur, no rubs or gallops noted. Capillary refill <2 sec. Pulm: Lungs clear to auscultation bilaterally. GI: Abdomen soft, nontender to palpitation, bowel sounds intact. Extremity: Digital clubbing noted bilaterally on both hands, no extremity swelling or edema noted. Data 06/25/23 04:57 06/25/23 04:57 Other Labs: ED labs: PT: 14.5 INR: 1.1 Calcium: 8.7 Troponin: 12.00, serial troponin 12.21 BNP 2677 LFTs normal Urinalysis negative Chest x-ray by my read demonstrates cardiomegaly, interstitial edema, slight blunting of the right costophrenic angle, fluid in the right fissure EKG demonstrates atrial fibrillation, rate around 110. [place] is normal. No significant ST or T wave changes. This is per my read. A&P Assessment and plan (1) Atrial fibrillation with rapid ventricular response: Patient's current episode, and previous episodes, are highly suggestive of atrial fibrillation with RVR. Symptoms have resolved after initiation of diltiazem drip in the ED. Shortness of breath and atrial fibrillation are possibly attributed to his acute diastolic heart failure. Patient reports inconsistent adherence to medication, specifically metoprolol, which has possibly precipitated this and his previous episodes of RVR. EKG performed in the ER revealed atrial fibrillation with RVR. Troponin: 12.00, serial troponin 12.21. Diltiazem drip started in the ED. Will continue inpatient, until home medications can be restarted, specifically the metoprolol to help control rate. Restart patient's metoprolol 25 mg, p.o., twice daily?rate and blood pressure control. He has been noncompliant with his medication. It may need to be adjusted depending upon his heart rate response. Diltiazem can be weaned off as this is initiated Aspirin 81 mg p.o. every morning?antiplatelet. Apixaban 5 mg, p.o., twice daily?antiplatelet and DVT prophylaxis. Note that he had a nuclear stress test without any reversible ischemia in March of this year Note that he had an echocardiogram demonstrating preserved EF, mitral regurgitation at least moderate and pulmonary hypertension. He has not been compliant with his cardiology follow-up. Will try to stress this again when he does leave the hospital. Check magnesium and TSH (2) Acute diastolic heart failure: Patient has a history of diastolic heart failure, with consistent elevated BNP. BNP performed in the ED was elevated, but trending appropriately with his previous elevated BNP's. Chest x-ray reveals mild interstitial edema, and consistent with previous x-rays. Patient inconsistent with home furosemide regimen. Denied taking his furosemide at home during interview. Restart patient's furosemide With rate control likely acute diastolic heart failure will clear some on its own. (3) Hypothyroid: Patient has a history of hypothyroidism, and his last TSH 1 month ago was elevated at 8.9. Will recheck TSH this visit. May need supplementation. If this is true, would need to proceed cautiously in the face of atrial fibrillation Qualifiers: Hypothyroidism type: acquired Qualified Code(s): E03.9 - Hypothyroidism, unspecified (4) Noncompliance with medication regimen: Patient has history of inconsistent medication adherence. Spoke with patient about the importance of timely medication administration to prevent future episodes like this. Will see if he qualifies for home health Plan Other medical problems as documented in his HPI Full code Cristian will suffice for DVT prophylaxis along with SCDs Attestations Medical Necessity Statement*: Will need less than 2 midnight stay for evaluation and treatment of A-fib with RVR Diagnoses Atrial fibrillation with rapid ventricular response I48.91 Acute diastolic heart failure I50.31 Acquired hypothyroidism E03.9 Hypothyroidism type: acquired Noncompliance with medication regimen Z91.148 Time Spent (min) 46
[2023-06-25 09:40] LABS: Thyroid Stimulating Hormone 5.74 uIU/mL (0.27-4.20)
[2023-06-25] MEDS: FUROsemide 20 mg Tablet PO (09:46)
[2023-06-25] MEDS: potassium chloride ER 10 mEq Tablet PO (09:46)
[2023-06-25] MEDS: apixaban 5 mg Tablet PO ×2 (09:46→20:43)
[2023-06-25] MEDS: metoprolol succinate ER (24 HR) 25 mg Tablet PO ×2 (09:46→17:28)
--- NOTE | 2023-06-25 11:04 | ECG_ITS ---
[facility] Test Date: 2023-06-25 Pat Name: David Orozco Department: Room: 106 Gender: Male [employer] Director: : 1940 Requested By: Augustine Field Order Number: [id number] Jessica MD: Js Hendricks M.D. Measurements Intervals [place] Rate: 81 P: 0 [place]: 0 QRS: 28 QRSD: 89 T: 47 QT: 364 QTc: 423 Interpretive Statements ATRIAL FIBRILLATION ABNORMAL RHYTHM ECG INTERPRETATION BASED ON A DEFAULT AGE OF 40 YEARS Compared to ECG 06/25/2023 06:55:42 ST (T wave) deviation no longer present Electronically Signed On 06-25-2023 15:30:41 CDT by Js Hendricks M.D. [email or web address]
[2023-06-25 11:49] LABS: Troponin 5 6HR 12.34 ng/L (0-15); Troponin 5 6HR Delta 0.34 ng/L (0-12)
[2023-06-25] MEDS: acetaminophen 325 mg Tablet 650 MG PO (17:28)
--- NOTE | 2023-06-25 23:53 | PC.NURSE ---
Patient stated that he feels like that he cannot breathe when he starts to fall asleep causing him to wake up. I placed patient on [address] Lagos.
[2023-06-26] VITALS: BP 102/82; PULSE 79; RESP 20; TEMP 36.5; O2SAT 92
[2023-06-26 04:00] VITALS: BP 156/96; PULSE 96; RESP 19; TEMP 36.8; O2SAT 99
[2023-06-26 04:41] LABS: Basophils % 0.3 %; Eosinophils # 0.2 10^3/uL (0.0-0.8); Eosinophils % 3.4 %; Hematocrit 40.6 % (37-53); Lymphocytes # 1.4 10^3/uL (0.8-4.8); Lymphocytes % 19.8 %; Mean Corpuscular HGB Conc 33.7 g/dL (30-55); Mean Corpuscular Hemoglobin 35.3 pg (27-33); Mean Corpuscular Volume 104.6 fl (82-101); Mean Platelet Volume 10.1 fL (7.4-10.4); Monocytes # 0.8 10^3/uL (0.2-0.9); Monocytes % 11.4 %; Neutrophils # 4.49 10^3/uL (1.8-7.7); Neutrophils % 64.5 %; Nucleated Red Blood Cells % 0 %; Platelet Count 181 10^3/cmm (157-399); Red Blood Count 3.88 10^6/uL (3.85-5.65); Red Cell Distribution Width 14.3 % (12.1-15.1); White Blood Count 6.96 10^3/uL (3.29-11.43)
[2023-06-26 05:07] LABS: Alanine Aminotransferase 7 U/L (0-41); Albumin Level 3.5 g/dL (3.5-5.2); Alkaline Phosphatase 68 U/L (40-130); Aspartate Amino Transferase 12 U/L (0-40); Blood Urea Nitrogen 19 mg/dL (8-23); Calcium 8.8 mg/dL (8.5-10.5); Carbon Dioxide 25 mmol/L (22-29); Chloride 102 mmol/L (98-107); Creatinine Clr Calc Pharmacy 53.4316; Globulin 3.3 g/dL (1.3-4.6); Glucose 95 mg/dL (65-115); Magnesium 1.9 mg/dL (1.7-2.3); Osmolality Calculated 286 mOsm/kg (285-295); Sodium 137 mmol/L (136-145); Total Bilirubin 1.5 mg/dL (0.15-1.2); Total Protein 6.8 g/dL (6.6-8.7)
[2023-06-26 05:13] LABS: Anion Gap 14.4 (5-19); Potassium 4.4 mmol/L (3.5-5.1)
[2023-06-26 05:16] VITALS: PULSE 79
[2023-06-26 06:05] VITALS: BP 154/103
[2023-06-26] MEDS: losartan 50 mg Tablet PO (06:05)
[2023-06-26 07:14] VITALS: BP 140/104; PULSE 99; RESP 17; TEMP 36.9; O2SAT 95
--- NOTE | 2023-06-26 07:42 | P.DS_ITS ---
Discharge Providers Date of Admission: 06/25/23 07:19 Date of Discharge: June 26, 2023 Attending Provider at Admission: Jimbo Torres MD, hospitalist Attending Provider at Discharge: Jimbo Torres MD Primary Care Provider: Denis Nowak MD Diagnoses at Discharge Discharge Diagnosis (1) Atrial fibrillation with rapid ventricular response: Status: Acute (2) Acute diastolic heart failure: Status: Acute (3) Hypothyroid: Status: Acute Qualifiers: Hypothyroidism type: acquired Qualified Code(s): E03.9 - Hypothyroidism, unspecified (4) Noncompliance with medication regimen: Status: Acute Reason for Visit Reason for Visit: sob, back and shoulder blade pain Hospital Course Hospital Course David is an 82-year-old white male who presents to the hospital with A-fib with RVR. He reported chest discomfort and palpitations as well as shortness of breath. He has had previous similar hospital stays. He was placed on a Cardizem drip, and transition to his regular medicine. With this his heart rate remained under control. He admitted to not taking his medication lately. I had a long discussion with him, and then his daughter regarding the importance of his medication. She reports he is resistant to taking his medications at times, and does have some memory gaps. He has refused home health. I did interview him and he was alert and oriented, showed understanding in the moment of his concerns. Daughter reports he is still functional, managing at home but certainly has been having more memory problems as of late. I encouraged her to have him evaluated by his primary care provider, and to do frequent home checks. Patient and daughter were given the opportunity ask questions and agreed with the plan. Echocardiogram, nuclear stress test were not performed as they were performed earlier this year with a similar hospitalization. Physical Exam Narrative: General exam no distress Neck is supple Cardiovascular irregular irregular with a 2/6 systolic murmur Lungs clear Abdomen is soft Extremities no cyanosis clubbing or edema Discharge Data Studies Completed and Pending Completed Studies During Hospitalization Category Date Time Status XR chest 1V portable [id number] Stat Exams 06/25/23 05:04 Completed Radiology Impressions Chest X-Ray 06/25/23 05:04 IMPRESSION: 1. Mild interstitial edema. 2. No significant interval change. Laboratory Results WBC 6.96 10^3/uL (3.29-11.43) 06/26/23 04:10 RBC 3.88 10^6/uL (3.85-5.65) 06/26/23 04:10 Hgb 13.70 g/dL (11.27-16.99) 06/26/23 04:10 Hct 40.6 % (37-53) 06/26/23 04:10 MCV 104.6 fl (82-101) H 06/26/23 04:10 MCH 35.3 pg (27-33) H 06/26/23 04:10 MCHC 33.7 g/dL (30-55) 06/26/23 04:10 RDW 14.3 % (12.1-15.1) 06/26/23 04:10 Plt Count 181 10^3/cmm (157-399) 06/26/23 04:10 MPV 10.1 fL (7.4-10.4) 06/26/23 04:10 Neut % (Auto) 64.5 % 06/26/23 04:10 Lymph % (Auto) 19.8 % 06/26/23 04:10 [place] % (Auto) 11.4 % 06/26/23 04:10 Eos % (Auto) 3.4 % 06/26/23 04:10 Baso % (Auto) 0.3 % 06/26/23 04:10 Neut # (Auto) 4.49 10^3/uL (1.8-7.7) 06/26/23 04:10 Lymph # (Auto) 1.4 10^3/uL (0.8-4.8) 06/26/23 04:10 [place] # (Auto) 0.8 10^3/uL (0.2-0.9) 06/26/23 04:10 Eos # (Auto) 0.2 10^3/uL (0.0-0.8) 06/26/23 04:10 Baso # (Auto) 0.0 10^3/uL (0.0-0.1) 06/26/23 04:10 Nucleated RBC % (auto) 0 % 06/26/23 04:10 Nucleated RBCs # 0.0 /100WBC 06/26/23 04:10 PT 14.50 SECONDS (12.1-14.9) 06/25/23 04:57 INR 1.10 (0.8-1.2) 06/25/23 04:57 Sodium 137 mmol/L (136-145) 06/26/23 04:10 Potassium 4.4 mmol/L (3.5-5.1) 06/26/23 04:10 Chloride 102 mmol/L (98-107) 06/26/23 04:10 Carbon Dioxide 25 mmol/L (22-29) 06/26/23 04:10 Anion Gap 14.4 (5-19) 06/26/23 04:10 BUN 19 mg/dL (8-23) 06/26/23 04:10 Creatinine 1.1 mg/dL (0.7-1.2) 06/26/23 04:10 GFR Calculation Not Reportable 06/26/23 04:10 Glucose 95 mg/dL (65-115) 06/26/23 04:10 Calculated Osmolality 286 mOsm/kg (285-295) 06/26/23 04:10 Calcium 8.8 mg/dL (8.5-10.5) 06/26/23 04:10 Magnesium 1.9 mg/dL (1.7-2.3) 06/26/23 04:10 Total Bilirubin 1.5 mg/dL (0.15-1.2) H 06/26/23 04:10 AST 12 U/L (0-40) 06/26/23 04:10 ALT 7 U/L (0-41) 06/26/23 04:10 Alkaline Phosphatase 68 U/L (40-130) 06/26/23 04:10 Troponin T Baseline 12 ng/L (0-15) 06/25/23 04:57 Troponin T 120 Minute 12.21 ng/L (0-15) 06/25/23 06:50 Delta Troponin T 0.21 ABS# (0-10) 06/25/23 06:50 Troponin T Hi Sens 6Hr 12.34 ng/L (0-15) 06/25/23 11:12 Troponin T Hi Sens 6Hr Delta 0.34 ng/L (0-12) 06/25/23 11:12 NT-Pro-B Natriuret Pep 2677 pg/mL (0-450) H 06/25/23 04:57 Total Protein 6.8 g/dL (6.6-8.7) 06/26/23 04:10 Albumin 3.5 g/dL (3.5-5.2) 06/26/23 04:10 Globulin 3.3 g/dL (1.3-4.6) 06/26/23 04:10 TSH 5.74 uIU/mL (0.27-4.20) H 06/25/23 04:57 Urine Color Yellow (Yellow) 06/25/23 05:46 Urine Appearance Clear (CLEAR) 06/25/23 05:46 Urine pH 7 (5-7) 06/25/23 05:46 Ur Specific [place] 1.010 (1.005-1.030) 06/25/23 05:46 Urine Protein Neg (Negative) 06/25/23 05:46 Urine Glucose (UA) Norm (Normal) 06/25/23 05:46 Urine Ketones Negative (Negative) 06/25/23 05:46 Urine Blood 2+ (Negative) H 06/25/23 05:46 Urine Nitrate Negative (Negative) 06/25/23 05:46 Urine Bilirubin Neg (Negative) 06/25/23 05:46 Urine Urobilinogen Neg mg/dL (Negative) 06/25/23 05:46 Ur Leukocyte Esterase Negative (Negative) 06/25/23 05:46 Urine RBC 0-4 /hpf (0-2) H 06/25/23 05:46 Urine WBC None /hpf (0-5) 06/25/23 05:46 Ur Squamous Epith Cells None /hpf (0-5) 06/25/23 05:46 Amorphous Sediment Not Reportable 06/25/23 05:46 Urine Bacteria Trace /hpf (NONE) 06/25/23 05:46 Urine Mucus 1+ /hpf 06/25/23 05:46 Vitals Last Vital Signs Temp 98.4 F 06/26/23 07:14 Pulse 99 06/26/23 07:14 Resp 17 06/26/23 07:14 BP 140/104 06/26/23 07:14 Pulse Ox 95 06/26/23 07:14 O2 Del Method Nasal Cannula 06/26/23 07:14 O2 Flow Rate 1 06/26/23 07:14 Discharge Plan Discharge Patient Disposition: Home Condition: Stable Prescriptions: New Eliquis 5 mg Tablet 5 mg PO BID@0900,2100 Qty: 60 0RF Continued aspirin 81 mg Tablet,Delayed Release (Dr/Ec) 81 mg PO QAM Qty: 30 0RF losartan 50 mg tablet 50 mg PO QAM Qty: 30 0RF furosemide [Lasix] 20 mg tablet 20 mg PO DAILY Qty: 30 0RF metoprolol succinate [Toprol XL] 25 mg tablet extended release 24 hr 25 mg PO BID Qty: 60 0RF potassium chloride 8 mEq tablet extended release 8 meq PO QAM Qty: 30 0RF Discontinued vitamin E 268 mg (400 unit) Capsule 268 mg PO QAM apixaban 5 mg tablet 5 mg PO QAM Discharge Orders: Discharge Order (Routine); Ordered 06/26/23 Ordered By: Jimbo Torres Referrals: Denis Nowak MD [Primary Care Provider] - 4-7 days (BMP on follow up) Luz Harris FNP [Nurse Practitioner] - 1 week Discharge Diet: Cardiac Discharge Activity: Resume usual activity Patient Instructions: Opioid Safety Activity Restrictions/Additional Instructions: Take all medicine as prescribed Follow-up with your primary care provider as scheduled For any concerns Keep follow-up with your business analytics specialist BMP on follow-up with your primary care provider Discharge Attestations Time Spent in Discharge Care*: greater than 30 min Quality Metrics Clinical Quality Measures [ No reported AMI, CVA or VTE this stay] Coding Level of Care Code 68806 Total time (in minutes) for Discharge: 36 Diagnoses Atrial fibrillation with rapid ventricular response I48.91 Acute diastolic heart failure I50.31 Acquired hypothyroidism E03.9 Hypothyroidism type: acquired Noncompliance with medication regimen Z91.148
[2023-06-26] MEDS: FUROsemide 20 mg Tablet PO (08:32)
[2023-06-26] MEDS: potassium chloride ER 10 mEq Tablet PO (08:32)
[2023-06-26] MEDS: apixaban 5 mg Tablet PO (08:32)
[2023-06-26] MEDS: metoprolol succinate ER (24 HR) 25 mg Tablet PO (08:32)
== END 2023-06-26 10:27 | disposition home or self-care (01) ==
LOC: ER 06:14 → CSU 08:11
PROVIDERS: Admitting Provider Internal Medicine; Emergency Provider Internal Medicine; PCP Internal Medicine; Visit Provider Internal Medicine
DX: I48.91 Unspecified atrial fibrillation (principal); I11.0 Hypertensive heart disease with heart failure; I50.31 Acute diastolic (congestive) heart failure; E03.9 Hypothyroidism, unspecified; Z91.148 Patient's other noncompliance with medication regimen for other reason; Z86.010 Personal history of colon polyps; K21.9 Gastro-esophageal reflux disease without esophagitis; M79.7 Fibromyalgia
CPT/HCPCS: 36415; 71045; 80053; 81001; 83735; 83880; 84443; 84484; 85025; 85610; 93005; 96365; 96375; 99285; G0378; J3490

== ENCOUNTER 2023-07-02 05:44 | Emergency (ER) | payer MEDICARE, MEDICAID, SELFPAY ==
[2023-07-02 05:47] VITALS: BP 199/128; PULSE 102; RESP 30; TEMP 36.4; O2SAT 97; BMI 30.4
--- NOTE | 2023-07-02 05:50 | ECG_ITS ---
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 Measurements Intervals [place] Rate: 109 P: 0 [place]: 0 QRS: 49 QRSD: 77 T: 63 QT: 314 QTc: 424 Interpretive Statements ATRIAL FIBRILLATION WITH RAPID VENTRICULAR RESPONSE MODERATE ST DEPRESSION [0.05+ mV ST DEPRESSION] Compared to ECG 06/25/2023 11:05:03 ST (T wave) deviation now present Electronically Signed On 07-02-2023 18:29:23 CDT by Kavon Cordoba M.D. [id number] f
--- NOTE | 2023-07-02 05:57 | XRR_ITS ---
PROCEDURE INFORMATION: Exam: XR Chest Exam date and time: 07/02/2023 5:59 AM Age: 82 years old Clinical indication: Shortness of breath; Additional info: Dyspnea/cough TECHNIQUE: Imaging protocol: Radiologic exam of the chest. Views: 1 view. COMPARISON: CR (CHEST, ) 06/25/2023 5:18 AM FINDINGS: Lungs: Chronic interstitial prominence is stable, accentuated by the poor inspiratory effort today. Pleural spaces: Unremarkable. No pleural effusion. No pneumothorax. Heart/Mediastinum: Mild cardiomegaly. Uncoiling of the thoracic aorta. Hypoventilatory changes in the lower lobes. Bones/joints: Unremarkable. XR/XR chest 1V portable [id number] IMPRESSION: No acute findings.
--- NOTE | 2023-07-02 06:03 | ED_ITS ---
HPI - SOB/Dyspnea 2 General: Chief Complaint: Shortness of Breath/Dyspnea Stated Complaint: SOB Time Seen by Provider: 07/02/23 05:50 Source: patient Mode of arrival: ambulatory History of Present Illness: HPI Narrative: 89-year-old male presents to the emergen cy room complaining of shortness of breath and hurting all over . Patient has a history of atrial fibrillation with congestive heart failure was seen frequently early in the morning with his rate poorly controlled once his rate is controlled his symptoms get better. We had changed his metoprolol to Toprol XL and titrated his dose up through ER visits ultimately leading to Toprol-XL 25 twice daily. He is unsure if he took his dose last night he is knows he did not take it this morning. When he arrives today he is in A-fib with RVR after a single dose of IV metoprolol his breathing is better. He is also somewhat hypertensive he denies any chest pain. He was recently hospitalized overnight with similar symptoms with diastolic heart failure and was started on Eliquis. No chest pain at this time. MD elicited complaint: shortness of breath Pertinent past history: congestive heart failure and other (Atrial fibrillation) Exacerbating factors: lying flat and exertion Relieving factors: rest and upright position Known history of: congestive heart failure Associated symptoms: Reports orthopnea and palpitations; Deny abdominal pain, chest congestion, chest pain, cough, diaphoresis, dizziness, extremity pain, fever(s), hemoptysis, lightheadedness, myalgias, nausea, paresthesias, polydipsia, polyuria, rash, sense of impending doom, syncope or vomiting Treatment prior to arrival: none Review of Systems 2 Const: Denies: fever(s), chills or diaphoresis Card: Reports: palpitations, irregular heart rhythm and orthopnea; Denies: chest pain, lightheadedness or syncope Resp: Reports: dyspnea; Denies: hemoptysis or chest congestion GI: Denies: abdominal pain, nausea or vomiting : Denies: dysuria, urinary frequency or urinary urgency Musc: Denies: neck pain, back pain or extremity pain Skin/Breast: Denies: rash Neuro: Denies: dizziness Endo: Denies: polyuria or polydipsia PFSH ED 2 PFSH: Medical History Left ureteral calculus Renal mass Calculus of kidney with calculus of ureter History of atrial fibrillation Dyslipidemia (high LDL; low HDL) Chronic episodic atrial fibrillation Benign essential HTN Atherosclerotic heart disease of [place] coronary artery without angina pectoris Insomnia History of colon polyps Lumbar disc disease GERD (gastroesophageal reflux disease) Fibromyalgia Surgical History History of cardiac cath History of cholecystectomy History of shoulder surgery History of colonoscopy Family History Brother No problems noted. Father , at age 93 Dementia Parkinson disease Mother , at age 75 No problems noted. Denies family history of Diabetes CAD (coronary artery disease) Clotting disorder Chronic kidney disease (CKD) Suicide Anesthesia complication Bleeding disorder Lung disease Cancer Stroke Social History Smoking and tobacco/nicotine status: never used tobacco/nicotine Alcohol intake: current Alcohol intake frequency: holidays/special occasions only Substance/Drug Use: never Housing: House Marital status: / Current occupational status: retired Physical Exam 2 Const: GENERAL APPEARANCE: cooperative and comfortable O RIENTATION/CONSCIOUSNESS: Yes awake, Yes oriented to person, Yes oriented to place and Yes oriented to time HENMT: COMMON NORMALS: normocephalic, atraumatic and hearing grossly normal bilaterally HEAD & SCALP: normocephalic and atraumatic Resp: COMMON NORMALS: normal respiratory effort, No retractions and No use of accessory muscles AUSCULTATION: crackles Cardio: COMMON NORMALS: No murmurs present (Cardio) RATE: tachycardic R HYTHM: abnormal rhythm irregularly irregular GI: COMMON NORMALS: Soft to palpation and No hepatosplenomegaly present A USCULTATION: Yes normoactive bowel sounds PALPATION: Yes Soft to palpation, No Tenderness to palpation present (GI), No Guarding due to palpation present (GI) and Yes No hepatosplenomegaly present Extremity: COMMON NORMALS: normal to inspection, capillary refill normal, no clubbing, cyanosis or edema, no calf tenderness and no pedal edema Neuro: SENSORIUM/ORIENTATION: Yes oriented to person, Yes oriented to place and Yes oriented to time Skin: COMMON NORMALS: no rashes or lesions noted GENERAL SKIN EXAM: no rashes or lesions noted Course 2 Vital Signs: Vital signs: Vital Signs Temperature 97.6 F 07/02/23 05:47 Pulse Rate 101 H 07/02/23 06:53 Respiratory Rate 24 H 07/02/23 06:53 Blood Pressure 163/98 07/02/23 06:53 Pulse Oximetry 96 07/02/23 06:53 Oxygen Delivery Me thod Room Air 07/02/23 06:10 MDM - SOB/Dyspnea Medical Decision Making Chronic atrial fibrillation rate improved after medications given he is feeling better labs and imaging reviewed. Discussed with patient the importance of taking medications timely. Will add Lasix 40 mg daily additionally increase his nighttime dose of metoprolol to 37-1/2 mg he seems to always have these episodes in the morning hopefully larger dose will control his blood pressure and heart rate better in the morning when he seems to arrive in the emergency room most often with a rapid heart rate. Strongly encourage patient to follow-up with his primary care doctor. Medical Records I reviewed the patient's medical records. Lab Data I reviewed the patient's lab results. 07/02/23 05:50 07/02/23 05:50 Labs/Radiology: Radiology Impressions Chest X-Ray 07/02/23 05:57 IMPRESSION: No acute findings. Laboratory Results WBC 9.45 10^3/uL (3.29-11.43) 07/02/23 05:50 RBC 4.33 10^6/uL (3.85-5.65) 07/02/23 05:50 Hgb 15.20 g/dL (11.27-16.99) 07/02/23 05:50 Hct 44.7 % (37-53) 07/02/23 05:50 MCV 103.2 fl (82-101) H 07/02/23 05:50 MCH 35.1 pg (27-33) H 07/02/23 05:50 MCHC 34.0 g/dL (30-55) 07/02/23 05:50 RDW 14.3 % (12.1-15.1) 07/02/23 05:50 Plt Count 252 10^3/cmm (157-399) 07/02/23 05:50 MPV 10.0 fL (7.4-10.4) 07/02/23 05:50 Neut % (Auto) 72.3 % 07/02/23 05:50 Lymph % (Auto) 18.2 % 07/02/23 05:50 [place] % (Auto) 7.1 % 07/02/23 05:50 Eos % (Auto) 1.6 % 07/02/23 05:50 Baso % (Auto) 0.4 % 07/02/23 05:50 Neut # (Auto) 6.83 10^3/uL (1.8-7.7) 07/02/23 05:50 Lymph # (Auto) 1.7 10^3/uL (0.8-4.8) 07/02/23 05:50 [place] # (Auto) 0.7 10^3/uL (0.2-0.9) 07/02/23 05:50 Eos # (Auto) 0.2 10^3/uL (0.0-0.8) 07/02/23 05:50 Baso # (Auto) 0.0 10^3/uL (0.0-0.1) 07/02/23 05:50 Nucleated RBC % (auto) 0 % 07/02/23 05:50 Nucleated RBCs # 0.0 /100WBC 07/02/23 05:50 Sodium 139 mmol/L (136-145) 07/02/23 05:50 Potassium 4.5 mmol/L (3.5-5.1) 07/02/23 05:50 Chloride 102 mmol/L (98-107) 07/02/23 05:50 Carbon Dioxide 25 mmol/L (22-29) 07/02/23 05:50 Anion Gap 16.5 (5-19) 07/02/23 05:50 BUN 10 mg/dL (8-23) 07/02/23 05:50 Creatinine 1.1 mg/dL (0.7-1.2) 07/02/23 05:50 GFR Calculation Not Reportable 07/02/23 05:50 Glucose 122 mg/dL (65-115) H 07/02/23 05:50 Calculated Osmolality 288 mOsm/kg (285-295) 07/02/23 05:50 Calcium 9.5 mg/dL (8.5-10.5) 07/02/23 05:50 Total Bilirubin 1.5 mg/dL (0.15-1.2) H 07/02/23 05:50 AST 17 U/L (0-40) 07/02/23 05:50 ALT 10 U/L (0-41) 07/02/23 05:50 Alkaline Phosphatase 86 U/L (40-130) 07/02/23 05:50 NT-Pro-B Natriuret Pep 3676 pg/mL (0-450) H 07/02/23 05:50 Total Protein 8.6 g/dL (6.6-8.7) 07/02/23 05:50 Albumin 4.2 g/dL (3.5-5.2) 07/02/23 05:50 Globulin 4.4 g/dL (1.3-4.6) 07/02/23 05:50 Urine Color Yellow (Yellow) 07/02/23 06:58 Urine Appearance Clear (CLEAR) 07/02/23 06:58 Urine pH 6 (5-7) 07/02/23 06:58 Ur Specific [place] 1.010 (1.005-1.030) 07/02/23 06:58 Urine Protein Neg (Negative) 07/02/23 06:58 Urine Glucose (UA) Norm (Normal) 07/02/23 06:58 Urine Ketones Negative (Negative) 07/02/23 06:58 Urine Blood 2+ (Negative) H 07/02/23 06:58 Urine Nitrate Negative (Negative) 07/02/23 06:58 Urine Bilirubin Neg (Negative) 07/02/23 06:58 Urine Urobilinogen Neg mg/dL (Negative) 07/02/23 06:58 Ur Leukocyte Esterase Negative (Negative) 07/02/23 06:58 Urine RBC 5-10 /hpf (0-2) H 07/02/23 06:58 Urine WBC 0-4 /hpf (0-5) H 07/02/23 06:58 Ur Squamous Epith Cells 0-4 /hpf (0-5) H 07/02/23 06:58 Amorphous Sediment Not Reportable 07/02/23 06:58 Urine Bacteria Trace /hpf (NONE) 07/02/23 06:58 Hyaline Casts 0-4 /lpf H 07/02/23 06:58 Urine Mucus 1+ /hpf 07/02/23 06:58 All radiology interpretation(s) finalized by discharge Discharge Plan Discharge Patient Disposition: Home Clinical Impression: Chronic episodic atrial fibrillation Congestive heart failure Qualifiers: Heart failure type: unspecified Heart failure chronicity: chronic Qualified Code(s): I50.9 - Heart failure, unspecified Condition: Stable Prescriptions: No Action losartan 50 mg tablet 50 mg PO QAM Qty: 30 0RF aspirin 81 mg Tablet,Delayed Release (Dr/Ec) 81 mg PO QAM Qty: 30 0RF potassium chloride 8 mEq tablet extended release 8 meq PO QAM Qty: 30 0RF furosemide [Lasix] 20 mg tablet 20 mg PO DAILY Qty: 30 0RF vitamin E 268 mg (400 unit) Capsule 1 cap PO DAILY Toprol XL 25 mg tablet extended release 24 hr 25 mg PO DAILY Eliquis 5 mg tablet 5 mg PO DAILY Discharge Orders: Discharge ED (Routine); Ordered 07/02/23 Ordered By: Glynn David Referrals: Denis Nowak MD [Primary Care Provider] - Discharge Diet: Usual diet Discharge Activity: Increase activity as tolerated Patient Instructions: Opioid Safety, Pain Management Activity Restrictions/Additional Instructions: Thank you for choosing [facility] for your healthcare needs today. Please realize this is an emergency room and that we are providing you with a medical screening exam and this may not be complete and all inclusive of all the testing and or work up that you may need to determine your ailment or severity of your illness. It is very important that you follow up as instructed or that you return to the Emergency Department should you have concerns or if your condition changes or worsens in any way. You were seen today for complaints of shortness of breath. When he arrived here A-fib was causing a rapid heart rate. With medications given your rate controlled and your symptoms improved. Recommend increasing your Lasix to 40 mg daily. Increasing her Toprol-XL to 37 and half milligrams (1-1/2 tablets) at night and 1 full tablet in the morning. You should follow-up with your doctor within the next week. Case management make arrangements to help you get expedited follow-up to cardiology. 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
[2023-07-02] MEDS: metoprolol tartrate 1 mg/1 mL SDV 5 mL 2.5 MG IVP ×2 (06:04→06:51)
[2023-07-02 06:05] LABS: Basophils % 0.4 %; Eosinophils # 0.2 10^3/uL (0.0-0.8); Eosinophils % 1.6 %; Hematocrit 44.7 % (37-53); Lymphocytes # 1.7 10^3/uL (0.8-4.8); Lymphocytes % 18.2 %; Mean Corpuscular Hemoglobin 35.1 pg (27-33); Mean Corpuscular Volume 103.2 fl (82-101); Monocytes # 0.7 10^3/uL (0.2-0.9); Monocytes % 7.1 %; Neutrophils # 6.83 10^3/uL (1.8-7.7); Neutrophils % 72.3 %; Nucleated Red Blood Cells % 0 %; Platelet Count 252 10^3/cmm (157-399); Red Blood Count 4.33 10^6/uL (3.85-5.65); Red Cell Distribution Width 14.3 % (12.1-15.1); White Blood Count 9.45 10^3/uL (3.29-11.43)
[2023-07-02 06:10] VITALS: PULSE 93; RESP 17; O2SAT 96
[2023-07-02 06:30] LABS: Alanine Aminotransferase 10 U/L (0-41); Albumin Level 4.2 g/dL (3.5-5.2); Alkaline Phosphatase 86 U/L (40-130); Anion Gap 16.5 (5-19); Aspartate Amino Transferase 17 U/L (0-40); Blood Urea Nitrogen 10 mg/dL (8-23); Calcium 9.5 mg/dL (8.5-10.5); Carbon Dioxide 25 mmol/L (22-29); Chloride 102 mmol/L (98-107); Creatinine Clr Calc Pharmacy 54.6758; Globulin 4.4 g/dL (1.3-4.6); Glucose 122 mg/dL (65-115); NT Pro B Type Natriuretic Pept 3676 pg/mL (0-450); Osmolality Calculated 288 mOsm/kg (285-295); Potassium 4.5 mmol/L (3.5-5.1); Sodium 139 mmol/L (136-145); Total Bilirubin 1.5 mg/dL (0.15-1.2); Total Protein 8.6 g/dL (6.6-8.7)
[2023-07-02] MEDS: FUROsemide 10 mg/mL SDV 4mL 40 MG IVP (06:31)
[2023-07-02] MEDS: metoprolol succinate ER (24 HR) 50 mg Tablet 25 MG PO (06:31)
[2023-07-02 06:52] VITALS: BP 163/98
[2023-07-02] MEDS: losartan 50 mg Tablet 100 MG PO (06:52)
[2023-07-02 06:53] VITALS: BP 163/98; PULSE 101; RESP 24; O2SAT 96
--- NOTE | 2023-07-02 07:16 | PC.PHAR ---
pt states he takes care of his own medications-pt states he only takes his eliquis 5mg once a day ext shows last filled 06/26/23 30d/s 5mg bid-toprol xl 25mg daily ext shows last filled 06/26/23 30d/s 25mg bid-pt states he does not take lasix 20mg daily or kcl 8meq daily both filled 06/26/23 30d/s-pt states he takes his medications when he wants too-
[2023-07-02 07:24] LABS: Add Urine Microscopic? YES; Bacteria Urine TRACE /hpf; Bilirubin Urine Neg (Negative); Blood Urine 2+ (Negative); Glucose Urine UA Norm (Normal); Hyaline Casts Urine 0-4 /lpf; Ketones Urine Negative (Negative); Leukocyte Esterase Urine Negative (Negative); Mucus Urine 1+ /hpf; Nitrate Urine Negative (Negative); Protein Urine Neg (Negative); Squamous Epithelial Cell Urine 0-4 /hpf (0-5); Urine Appearance Clear (CLEAR); Urine Color Yellow (Yellow); Urobilinogen Urine Neg (Negative); WBC Urine 0-4 /hpf (0-5); pH Urine 6 (5-7)
[2023-07-02 07:25] LABS: Add Urine Culture? No
--- NOTE | 2023-07-02 09:54 | DCPLANNER ---
Patient has appt July 10 1030am with cardiology
== END 2023-07-02 10:47 | disposition home or self-care (01) ==
PROVIDERS: Emergency Provider Family Medicine; PCP Internal Medicine
DX: I48.20 Chronic atrial fibrillation, unspecified (principal); I11.0 Hypertensive heart disease with heart failure; I50.9 Heart failure, unspecified; Z79.01 Long term (current) use of anticoagulants; Z79.82 Long term (current) use of aspirin; E78.5 Hyperlipidemia, unspecified; I25.10 Atherosclerotic heart disease of native coronary artery without angina pectoris
CPT/HCPCS: 71045; 80053; 81001; 83880; 85025; 93005; 96374; 96375; 96376; 99285; J1940; J3490

== ENCOUNTER 2023-07-16 04:13 | Emergency (ER) | payer MEDICARE, MEDICAID, SELFPAY ==
--- NOTE | 2023-07-16 04:17 | ECG_ITS ---
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 Measurements Intervals [place] Rate: 116 P: 0 ND: 0 QRS: -1 QRSD: 89 T: 55 QT: 304 QTc: 423 Interpretive Statements ATRIAL FIBRILLATION WITH RAPID VENTRICULAR RESPONSE POSSIBLE ANTERIOR MYOCARDIAL INFARCTION , PROBABLY OLD [30 ms Q WAVE IN V3/V4, OR R < 0.2 mV IN V4] ABNORMAL RHYTHM ECG Compared to ECG 07/02/2023 05:50:54 Myocardial infarct finding now present ST (T wave) deviation no longer present Electronically Signed On 07-16-2023 19:59:06 CDT by Kavon Cordoba M.D. [id number] f
--- NOTE | 2023-07-16 04:17 | XRR_ITS ---
PROCEDURE INFORMATION: Exam: XR Chest Exam date and time: 07/16/2023 4:24 AM Age: 82 years old Clinical indication: Angina; Additional info: Chest pain TECHNIQUE: Imaging protocol: Radiologic exam of the chest. Views: 1 view. COMPARISON: CR (CHEST, ) 07/02/2023 5:59 AM FINDINGS: Lungs: No focal consolidation. Questionable mild pulmonary edema. Pleural spaces: No large pleural effusion. No distinct pneumothorax. Heart/Mediastinum: Cardiomediastinal silhouette is midline and stable in size. Bones/joints: Osseous structures are unchanged. XR/XR chest 1V portable [id number] IMPRESSION: Questionable mild pulmonary edema.
[2023-07-16 04:18] VITALS: BP 208/133; PULSE 117; RESP 22; TEMP 36.2; O2SAT 96; BMI 30.4
--- NOTE | 2023-07-16 04:26 | W.ED.CHESTPA ---
Documented by User: Remy Melgoza DO 07/16/23 05:27 HPI - Chest Pain General: Chief Complaint: Chest Pain Stated Complaint: Chest Pains Time Seen by Provider: 07/16/23 04:17 History of Present Illness: Patient presents to the ER after some chest pain and shortness of breath woke him up from sleep a couple hours ago. Patient states he took 325 mg aspirin prior to coming to the ER. Patient does have a history of A-fib and is on Eliquis. Patient also has a history of CHF is on Lasix. Patient is also on Toprol XL. Patient said that the pain is left-sided more pressure than anything that does not radiate. Patient denies diaphoresis nausea or vomiting. Patient says this was the same thing it happened last time he was here when he was in A-fib with RVR. Upon arrival patient's pulse is 117 beats a minute and irregular. Review of Systems General: Reports: 10 or more systems reviewed and unremarkable except in HPI and below PFSH ED PFSH: Medical History Left ureteral calculus Renal mass Calculus of kidney with calculus of ureter History of atrial fibrillation Dyslipidemia (high LDL; low HDL) Chronic episodic atrial fibrillation Benign essential HTN Atherosclerotic heart disease of [place] coronary artery without angina pectoris Insomnia History of colon polyps Lumbar disc disease GERD (gastroesophageal reflux disease) Fibromyalgia Surgical History History of cardiac cath History of cholecystectomy History of shoulder surgery History of colonoscopy Family History Brother No problems noted. Father , at age 93 Dementia Parkinson disease Mother , at age 75 No problems noted. Denies family history of Diabetes CAD (coronary artery disease) Clotting disorder Chronic kidney disease (CKD) Suicide Anesthesia complication Bleeding disorder Lung disease Cancer Stroke Social History Smoking and tobacco/nicotine status: never used tobacco/nicotine Alcohol intake: current Alcohol intake frequency: holidays/special occasions only Substance/Drug Use: never Housing: House Marital status: / Current occupational status: retired Physical Exam Const: COMMON NORMALS: no acute distress, average body habitus, patient oriented x3, no limitations, healthy appearing, alert and well nourished HENMT: COMMON NORMALS: normocephalic, atraumatic, hearing grossly normal bilaterally, external ears normal, Normal external nose present, moist oral mucous membranes and oropharynx normal HEAD & SCALP: normocephalic and atraumatic NOSE: Normal external nose present EXTERNAL EAR: Yes external ears normal Eye: COMMON NORMALS: Equal, round and reactive pupils present, EOMs intact bilaterally, conjunctivae normal and no scleral icterus CONJUNCTIVA: Yes conjunctivae normal PUPIL: Yes Equal, round and reactive pupils present Neck/C-Spine: COMMON NORMALS: no JVD Chest: COMMONS NORMALS: normal inspection of the chest and normal palpation of entire chest wall Resp: COMMON NORMALS: normal respiratory effort, No retractions, No use of accessory muscles and clear to auscultation bilaterally AUSCULTATION: clear to auscultation bilaterally Cardio: COMMON NORMALS: no JVD, S1 normal heart sound present, S2 normal heart sound present and No clicks present (Cardio); negative for regular rate (Irregularly irregular tachycardic rhythm) and negative for No murmurs present (Cardio) (About 2/6 to 3/6 systolic ejection murmur) RATE: abnormal rate (Irregularly irregular tachycardic rhythm) HEART SOUNDS: S1 normal heart sound present and S2 normal heart sound present GI: COMMON NORMALS: Normal to inspection, nondistended, normoactive bowel sounds present, Soft to palpation, non-tender, No hepatosplenomegaly present and no masses PALPATION: Yes Soft to palpation and Yes No hepatosplenomegaly present Neuro: COMMON NORMALS: patient oriented x3 SENSORIUM/ORIENTATION: Yes alert Course Vital Signs: Vital signs: Vital Signs Temperature 97.2 F L 07/16/23 04:18 Pulse Rate 92 07/16/23 06:30 Respiratory Rate 18 07/16/23 06:30 Blood Pressure 159/128 07/16/23 06:30 Pulse Oximetry 96 07/16/23 06:30 Oxygen Delivery Me thod Room Air 07/16/23 04:18 MDM - Chest Pain Differential Diagnosis Unlikely acute massive pulmonary embolism, acute respiratory failure, acute myocardial infarction, cardiac arrest or sudden cardiac Medical Records I reviewed the patient's medical records. Lab Data I reviewed the patient's lab results. 07/16/23 04:25 07/16/23 04:45 Radiology Impressions Chest X-Ray 07/16/23 04:17 IMPRESSION: Questionable mild pulmonary edema. Laboratory Results WBC 7.42 10^3/uL (3.29-11.43) 07/16/23 04:25 RBC 4.06 10^6/uL (3.85-5.65) 07/16/23 04:25 Hgb 14.30 g/dL (11.27-16.99) 07/16/23 04:25 Hct 42.1 % (37-53) 07/16/23 04:25 MCV 103.7 fl (82-101) H 07/16/23 04:25 MCH 35.2 pg (27-33) H 07/16/23 04:25 MCHC 34.0 g/dL (30-55) 07/16/23 04:25 RDW 15.3 % (12.1-15.1) H 07/16/23 04:25 Plt Count 214 10^3/cmm (157-399) 07/16/23 04:25 MPV 10.8 fL (7.4-10.4) H 07/16/23 04:25 Neut % (Auto) 58.1 % 07/16/23 04:25 Lymph % (Auto) 27.6 % 07/16/23 04:25 [place]ven % (Auto) 11.1 % 07/16/23 04:25 Eos % (Auto) 2.6 % 07/16/23 04:25 Baso % (Auto) 0.3 % 07/16/23 04:25 Neut # (Auto) 4.32 10^3/uL (1.8-7.7) 07/16/23 04:25 Lymph # (Auto) 2.1 10^3/uL (0.8-4.8) 07/16/23 04:25 [place]ven # (Auto) 0.8 10^3/uL (0.2-0.9) 07/16/23 04:25 Eos # (Auto) 0.2 10^3/uL (0.0-0.8) 07/16/23 04:25 Baso # (Auto) 0.0 10^3/uL (0.0-0.1) 07/16/23 04:25 Nucleated RBC % (auto) 0 % 07/16/23 04:25 Nucleated RBCs # 0.0 /100WBC 07/16/23 04:25 PT 15.90 SECONDS (12.1-14.9) H 07/16/23 04:45 INR 1.23 (0.8-1.2) H 07/16/23 04:45 Sodium 139 mmol/L (136-145) 07/16/23 04:45 Potassium 3.8 mmol/L (3.5-5.1) 07/16/23 04:45 Chloride 103 mmol/L (98-107) 07/16/23 04:45 Carbon Dioxide 23 mmol/L (22-29) 07/16/23 04:45 Anion Gap 16.8 (5-19) 07/16/23 04:45 BUN 12 mg/dL (8-23) 07/16/23 04:45 Creatinine 1.0 mg/dL (0.7-1.2) 07/16/23 04:45 GFR Calculation Not Reportable 07/16/23 04:45 Glucose 109 mg/dL (65-115) 07/16/23 04:45 Calculated Osmolality 288 mOsm/kg (285-295) 07/16/23 04:45 Calcium 8.8 mg/dL (8.5-10.5) 07/16/23 04:45 Total Bilirubin 1.5 mg/dL (0.15-1.2) H 07/16/23 04:45 AST 17 U/L (0-40) 07/16/23 04:45 ALT 8 U/L (0-41) 07/16/23 04:45 Alkaline Phosphatase 79 U/L (40-130) 07/16/23 04:45 Troponin T Baseline 14 ng/L (0-15) 07/16/23 04:45 Troponin T 120 Minute 14.29 ng/L (0-15) 07/16/23 06:20 Delta Troponin T 0.29 ABS# (0-10) 07/16/23 06:20 NT-Pro-B Natriuret Pep 2064 pg/mL (0-450) H 07/16/23 04:45 Total Protein 6.9 g/dL (6.6-8.7) 07/16/23 04:45 Albumin 3.8 g/dL (3.5-5.2) 07/16/23 04:45 Globulin 3.1 g/dL (1.3-4.6) 07/16/23 04:45 All radiology interpretation(s) finalized by discharge EKG Data EKG 1: I personally reviewed and interpreted this EKG as follows: EKG interpretation date: 07/16/23 EKG interpretation time: 04:17 Interpretation: Ventricular 816 bpm, QRS duration 89, QTc 373, A-fib with RVR, Discharge Plan Discharge Patient Disposition: Home Clinical Impression: Atrial fibrillation, Benign essential HTN Condition: Stable Prescriptions: New Toprol XL 50 mg tablet extended release 24 hr 50 mg PO BID Qty: 30 0RF Discontinued metoprolol succinate [Toprol XL] 25 mg tablet extended release 24 hr 25 mg PO DAILY No Action losartan 50 mg tablet 50 mg PO QAM Qty: 30 0RF aspirin 81 mg Tablet,Delayed Release (Dr/Ec) 81 mg PO QAM Qty: 30 0RF potassium chloride 8 mEq tablet extended release 8 meq PO QAM Qty: 30 0RF furosemide [Lasix] 20 mg tablet 20 mg PO DAILY Qty: 30 0RF vitamin E 268 mg (400 unit) Capsule 1 cap PO DAILY Eliquis 5 mg tablet 5 mg PO DAILY Discharge Orders: Discharge ED (Routine); Ordered 07/16/23 Ordered By: Glynn David Patient Instructions: Opioid Safety, Pain Management Activity Restrictions/Additional Instructions: Thank you for choosing [facility] for your healthcare needs today. Please realize this is an emergency room and that we are providing you with a medical screening exam and this may not be complete and all inclusive of all the testing and or work up that you may need to determine your ailment or severity of your illness. It is very important that you follow up as instructed or that you return to the Emergency Department should you have concerns or if your condition changes or worsens in any way. You are seen today for rapid heart rate and high blood pressure. Recommend you increase your Toprol to 50 mg twice a day. Continue your other medications. Strongly recommend you follow-up with a mangle catcher office as soon as you are able. It would be better to have your medications adjusted and managed through your mangle catcher within the through the emergency room. Sign Out Sign Out Data: Patient Sign Out occurred on 07/16/23 at 06:18. Patient's care was discussed, and care was transferred from Remy Melgoza DO to Glynn David DO. Coding Level of Care Code ED Radiation Safety Officer for Chg Fwd Documented by User: Glynn David DO 07/16/23 07:34 HPI - Chest Pain General: Chief Complaint: Chest Pain Stated Complaint: Chest Pains Time Seen by Provider: 07/16/23 04:17 PFSH ED PFSH: Medical History Left ureteral calculus Renal mass Calculus of kidney with calculus of ureter History of atrial fibrillation Dyslipidemia (high LDL; low HDL) Chronic episodic atrial fibrillation Benign essential HTN Atherosclerotic heart disease of [place] coronary artery without angina pectoris Insomnia History of colon polyps Lumbar disc disease GERD (gastroesophageal reflux disease) Fibromyalgia Surgical History History of cardiac cath History of cholecystectomy History of shoulder surgery History of colonoscopy Family History Brother No problems noted. Father , at age 93 Dementia Parkinson disease Mother , at age 75 No problems noted. Denies family history of Diabetes CAD (coronary artery disease) Clotting disorder Chronic kidney disease (CKD) Suicide Anesthesia complication Bleeding disorder Lung disease Cancer Stroke Social History Smoking and tobacco/nicotine status: never used tobacco/nicotine Alcohol intake: current Alcohol intake frequency: holidays/special occasions only Substance/Drug Use: never Housing: House Marital status: / Current occupational status: retired Course Vital Signs: Vital signs: Vital Signs Temperature 97.2 F L 07/16/23 04:18 Pulse Rate 92 07/16/23 06:30 Respiratory Rate 18 07/16/23 06:30 Blood Pressure 159/128 07/16/23 06:30 Pulse Oximetry 96 07/16/23 06:30 Oxygen Delivery Me thod Room Air 07/16/23 04:18 MDM - Chest Pain Medical Decision Making Unfortunately patient continues to return to the emergency room for medication adjustments. Some of this may be compliance with the medications some of this may be needs to have it continually titrated would not increase his Toprol to 50 XL twice daily. Strongly encourage patient to follow-up in the cardiology clinic. Lab Data 07/16/23 04:25 07/16/23 04:45 Radiology Impressions Chest X-Ray 07/16/23 04:17 IMPRESSION: Questionable mild pulmonary edema. Laboratory Results WBC 7.42 10^3/uL (3.29-11.43) 07/16/23 04:25 RBC 4.06 10^6/uL (3.85-5.65) 07/16/23 04:25 Hgb 14.30 g/dL (11.27-16.99) 07/16/23 04:25 Hct 42.1 % (37-53) 07/16/23 04:25 MCV 103.7 fl (82-101) H 07/16/23 04:25 MCH 35.2 pg (27-33) H 07/16/23 04:25 MCHC 34.0 g/dL (30-55) 07/16/23 04:25 RDW 15.3 % (12.1-15.1) H 07/16/23 04:25 Plt Count 214 10^3/cmm (157-399) 07/16/23 04:25 MPV 10.8 fL (7.4-10.4) H 07/16/23 04:25 Neut % (Auto) 58.1 % 07/16/23 04:25 Lymph % (Auto) 27.6 % 07/16/23 04:25 Craven % (Auto) 11.1 % 07/16/23 04:25 Eos % (Auto) 2.6 % 07/16/23 04:25 Baso % (Auto) 0.3 % 07/16/23 04:25 Neut # (Auto) 4.32 10^3/uL (1.8-7.7) 07/16/23 04:25 Lymph # (Auto) 2.1 10^3/uL (0.8-4.8) 07/16/23 04:25 [place] # (Auto) 0.8 10^3/uL (0.2-0.9) 07/16/23 04:25 Eos # (Auto) 0.2 10^3/uL (0.0-0.8) 07/16/23 04:25 Baso # (Auto) 0.0 10^3/uL (0.0-0.1) 07/16/23 04:25 Nucleated RBC % (auto) 0 % 07/16/23 04:25 Nucleated RBCs # 0.0 /100WBC 07/16/23 04:25 PT 15.90 SECONDS (12.1-14.9) H 07/16/23 04:45 INR 1.23 (0.8-1.2) H 07/16/23 04:45 Sodium 139 mmol/L (136-145) 07/16/23 04:45 Potassium 3.8 mmol/L (3.5-5.1) 07/16/23 04:45 Chloride 103 mmol/L (98-107) 07/16/23 04:45 Carbon Dioxide 23 mmol/L (22-29) 07/16/23 04:45 Anion Gap 16.8 (5-19) 07/16/23 04:45 BUN 12 mg/dL (8-23) 07/16/23 04:45 Creatinine 1.0 mg/dL (0.7-1.2) 07/16/23 04:45 GFR Calculation Not Reportable 07/16/23 04:45 Glucose 109 mg/dL (65-115) 07/16/23 04:45 Calculated Osmolality 288 mOsm/kg (285-295) 07/16/23 04:45 Calcium 8.8 mg/dL (8.5-10.5) 07/16/23 04:45 Total Bilirubin 1.5 mg/dL (0.15-1.2) H 07/16/23 04:45 AST 17 U/L (0-40) 07/16/23 04:45 ALT 8 U/L (0-41) 07/16/23 04:45 Alkaline Phosphatase 79 U/L (40-130) 07/16/23 04:45 Troponin T Baseline 14 ng/L (0-15) 07/16/23 04:45 Troponin T 120 Minute 14.29 ng/L (0-15) 07/16/23 06:20 Delta Troponin T 0.29 ABS# (0-10) 07/16/23 06:20 NT-Pro-B Natriuret Pep 2064 pg/mL (0-450) H 07/16/23 04:45 Total Protein 6.9 g/dL (6.6-8.7) 07/16/23 04:45 Albumin 3.8 g/dL (3.5-5.2) 07/16/23 04:45 Globulin 3.1 g/dL (1.3-4.6) 07/16/23 04:45 Discharge Plan Discharge Patient Disposition: Home Clinical Impression: Atrial fibrillation, Benign essential HTN Condition: Stable Prescriptions: New Toprol XL 50 mg tablet extended release 24 hr 50 mg PO BID Qty: 30 0RF Discontinued metoprolol succinate [Toprol XL] 25 mg tablet extended release 24 hr 25 mg PO DAILY No Action losartan 50 mg tablet 50 mg PO QAM Qty: 30 0RF aspirin 81 mg Tablet,Delayed Release (Dr/Ec) 81 mg PO QAM Qty: 30 0RF potassium chloride 8 mEq tablet extended release 8 meq PO QAM Qty: 30 0RF furosemide [Lasix] 20 mg tablet 20 mg PO DAILY Qty: 30 0RF vitamin E 268 mg (400 unit) Capsule 1 cap PO DAILY Eliquis 5 mg tablet 5 mg PO DAILY Discharge Orders: Discharge ED (Routine); Ordered 07/16/23 Ordered By: Glynn David Patient Instructions: Opioid Safety, Pain Management Activity Restrictions/Additional Instructions: Thank you for choosing [facility] for your healthcare needs today. Please realize this is an emergency room and that we are providing you with a medical screening exam and this may not be complete and all inclusive of all the testing and or work up that you may need to determine your ailment or severity of your illness. It is very important that you follow up as instructed or that you return to the Emergency Department should you have concerns or if your condition changes or worsens in any way. You are seen today for rapid heart rate and high blood pressure. Recommend you increase your Toprol to 50 mg twice a day. Continue your other medications. Strongly recommend you follow-up with a mangle catcher office as soon as you are able. It would be better to have your medications adjusted and managed through your mangle catcher within the through the emergency room. Sign Out Sign Out Data: Patient Sign Out occurred on 07/16/23 at 06:18. Patient's care was discussed, and care was transferred from Remy Melgoza DO to Glynn David DO. Coding Level of Care Code ED Radiation Safety Officer for Victor M Hale
[2023-07-16 04:30] VITALS: BP 158/106; PULSE 121; RESP 16; O2SAT 95
[2023-07-16 04:33] LABS: Basophils % 0.3 %; Eosinophils # 0.2 10^3/uL (0.0-0.8); Eosinophils % 2.6 %; Hematocrit 42.1 % (37-53); Lymphocytes # 2.1 10^3/uL (0.8-4.8); Lymphocytes % 27.6 %; Mean Corpuscular Hemoglobin 35.2 pg (27-33); Mean Corpuscular Volume 103.7 fl (82-101); Mean Platelet Volume 10.8 fL (7.4-10.4); Monocytes # 0.8 10^3/uL (0.2-0.9); Monocytes % 11.1 %; Neutrophils # 4.32 10^3/uL (1.8-7.7); Neutrophils % 58.1 %; Nucleated Red Blood Cells % 0 %; Platelet Count 214 10^3/cmm (157-399); Red Blood Count 4.06 10^6/uL (3.85-5.65); Red Cell Distribution Width 15.3 % (12.1-15.1); White Blood Count 7.42 10^3/uL (3.29-11.43)
[2023-07-16] MEDS: metoprolol tartrate 1 mg/1 mL SDV 5 mL 5 MG IVP (04:34)
[2023-07-16 05:03] LABS: INR 1.23 (0.8-1.2)
[2023-07-16 05:12] LABS: Troponin(5th) Baseline 14 ng/L (0-15)
[2023-07-16 05:13] VITALS: BP 159/119; PULSE 89; RESP 18; O2SAT 94
[2023-07-16 05:21] LABS: Alanine Aminotransferase 8 U/L (0-41); Albumin Level 3.8 g/dL (3.5-5.2); Alkaline Phosphatase 79 U/L (40-130); Anion Gap 16.8 (5-19); Aspartate Amino Transferase 17 U/L (0-40); Blood Urea Nitrogen 12 mg/dL (8-23); Calcium 8.8 mg/dL (8.5-10.5); Carbon Dioxide 23 mmol/L (22-29); Chloride 103 mmol/L (98-107); Creatinine Clr Calc Pharmacy 60.1434; Globulin 3.1 g/dL (1.3-4.6); Glucose 109 mg/dL (65-115); Osmolality Calculated 288 mOsm/kg (285-295); Potassium 3.8 mmol/L (3.5-5.1); Sodium 139 mmol/L (136-145); Total Bilirubin 1.5 mg/dL (0.15-1.2); Total Protein 6.9 g/dL (6.6-8.7)
[2023-07-16 05:22] LABS: NT Pro B Type Natriuretic Pept 2064 pg/mL (0-450)
[2023-07-16 05:30] VITALS: BP 168/110; PULSE 81; RESP 14; O2SAT 95
[2023-07-16 06:01] VITALS: BP 170/124; PULSE 89; RESP 18; O2SAT 96
--- NOTE | 2023-07-16 06:17 | ECG_ITS ---
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 Measurements Intervals [place] Rate: 84 P: 0 LA: 0 QRS: 1 QRSD: 90 T: 28 QT: 382 QTc: 454 Interpretive Statements ATRIAL FIBRILLATION POSSIBLE ANTERIOR MYOCARDIAL INFARCTION , PROBABLY OLD [30 ms Q WAVE IN V3/V4, OR R < 0.2 mV IN V4] ABNORMAL RHYTHM ECG Compared to ECG 07/16/2023 04:17:31 No significant changes Electronically Signed On 07-16-2023 20:08:19 CDT by Kavon Cordoba M.D. [email or web address]
[2023-07-16 06:30] VITALS: BP 159/128; PULSE 92; RESP 18; O2SAT 96
[2023-07-16 06:51] LABS: Troponin 5 2HR 14.29 ng/L (0-15); Troponin 5 2HR Delta 0.29 ABS# (0-10)
--- NOTE | 2023-07-16 07:17 | DCPLANNER ---
sent message to cardiology following ER visit
== END 2023-07-16 07:21 | disposition home or self-care (01) ==
PROVIDERS: Emergency Medicine; Emergency Provider Family Medicine
DX: I48.91 Unspecified atrial fibrillation (principal); I10 Essential (primary) hypertension; Z79.82 Long term (current) use of aspirin; Z79.01 Long term (current) use of anticoagulants; E78.5 Hyperlipidemia, unspecified; I25.10 Atherosclerotic heart disease of native coronary artery without angina pectoris
CPT/HCPCS: 71045; 80053; 83880; 84484; 85025; 85610; 93005; 96374; 99285; J3490

== ENCOUNTER 2023-07-17 04:49 | Emergency (ER) | payer MEDICARE, MEDICAID, SELFPAY ==
[2023-07-17 04:53] VITALS: BP 174/144; PULSE 105; RESP 15; TEMP 36.9; O2SAT 95; BMI 30.4
--- NOTE | 2023-07-17 04:57 | ECG_ITS ---
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 Measurements Intervals [place] Rate: 106 P: 0 MT: 0 QRS: 10 QRSD: 85 T: 55 QT: 350 QTc: 466 Interpretive Statements ATRIAL FIBRILLATION WITH RAPID VENTRICULAR RESPONSE MODERATE ST DEPRESSION [0.05+ mV ST DEPRESSION] Compared to ECG 07/16/2023 06:17:16 ST (T wave) deviation now present Myocardial infarct finding no longer present Electronically Signed On 07-17-2023 17:13:02 CDT by Maximino Berkowitz M.D. [id number]
--- NOTE | 2023-07-17 05:00 | ED_ITS ---
Documented by User: Remy Melgoza DO 07/17/23 05:02 HPI - SOB/Dyspnea 2 General: Chief Complaint: Shortness of Breath/Dyspnea Stated Complaint: SOB\Chest and Shoulders Hurts Time Seen by Provider: 07/17/23 04:50 History of Present Illness: HPI Narrative: Patient presents to the ER after waking up feeling short of breath, his heart racing, and having chest pain that radiated to the back. Patient is well-known to the ER as I have seen him early yesterday morning for the exact same thing. Patient says is exactly the way it was yesterday with no differences. Review of Systems 2 General: Reports: 10 or more systems reviewed and unremarkable except in HPI and below PFSH ED 2 PFSH: Medical History Left ureteral calculus Renal mass Calculus of kidney with calculus of ureter History of atrial fibrillation Dyslipidemia (high LDL; low HDL) Chronic episodic atrial fibrillation Benign essential HTN Atherosclerotic heart disease of [place] coronary artery without angina pectoris Insomnia History of colon polyps Lumbar disc disease GERD (gastroesophageal reflux disease) Fibromyalgia Surgical History History of cardiac cath History of cholecystectomy History of shoulder surgery History of colonoscopy Family History Brother No problems noted. Father , at age 93 Dementia Parkinson disease Mother , at age 75 No problems noted. Denies family history of Diabetes CAD (coronary artery disease) Clotting disorder Chronic kidney disease (CKD) Suicide Anesthesia complication Bleeding disorder Lung disease Cancer Stroke Social History Smoking and tobacco/nicotine status: never used tobacco/nicotine Alcohol intake: current Alcohol intake frequency: holidays/special occasions only Substance/Drug Use: never Housing: House Marital status: / Current occupational status: retired Physical Exam 2 Const: COMMON NORMALS: no acute distress, average body habitus, patient oriented x3, no limitations, healthy appearing, alert and well nourished HENMT: COMMON NORMALS: normocephalic, atraumatic, hearing grossly normal bilaterally, external ears normal, Normal external nose present, moist oral mucous membranes and oropharynx normal HEAD & SCALP: normocephalic and atraumatic NOSE: Normal external nose present EXTERNAL EAR: Yes external ears normal Neck/C-Spine: COMMON NORMALS: no JVD Chest: COMMONS NORMALS: normal inspection of the chest and normal palpation of entire chest wall Resp: COMMON NORMALS: normal respiratory effort, No retractions, No use of accessory muscles and clear to auscultation bilaterally AUSCULTATION: clear to auscultation bilaterally Cardio: COMMON NORMALS: no JVD, S1 normal heart sound present, S2 normal heart sound present, No gallops present (Cardio), No clicks present (Cardio) and No rub (Cardio); negative for regular rate (Irregularly irregular mildly tachycardic rhythm) and negative for No murmurs present (Cardio) (Approximately 2/6 to 3/6 systolic ejection murmur) RATE: abnormal rate (Irregularly irregular mildly tachycardic rhythm) HEART SOUNDS: S1 normal heart sound present and S2 normal heart sound present GI: COMMON NORMALS: Normal to inspection, nondistended, normoactive bowel sounds present, Soft to palpation, non-tender, No hepatosplenomegaly present and no masses PALPATION: Yes Soft to palpation and Yes No hepatosplenomegaly present Neuro: COMMON NORMALS: patient oriented x3 SENSORIUM/ORIENTATION: Yes alert Course 2 Vital Signs: Vital signs: Vital Signs Temperature 98.5 F 07/17/23 04:53 Pulse Rate 96 07/17/23 07:00 Respiratory Rate 16 07/17/23 06:44 Blood Pressure 177/114 07/17/23 07:00 Pulse Oximetry 96 07/17/23 07:00 Oxygen Delivery Me thod Room Air 07/17/23 07:00 MDM - SOB/Dyspnea Differential Diagnosis Unlikely acute exacerbation of chronic obstructive airways disease, congestive heart failure, community acquired pneumonia, asthma with exacerbation or pulmonary embolism Medical Records I reviewed the patient's medical records. Lab Data I reviewed the patient's lab results. 07/17/23 05:04 07/17/23 05:04 Labs/Radiology: Laboratory Results WBC 8.18 10^3/uL (3.29-11.43) 07/17/23 05:04 RBC 4.16 10^6/uL (3.85-5.65) 07/17/23 05:04 Hgb 14.90 g/dL (11.27-16.99) 07/17/23 05:04 Hct 43.3 % (37-53) 07/17/23 05:04 MCV 104.1 fl (82-101) H 07/17/23 05:04 MCH 35.8 pg (27-33) H 07/17/23 05:04 MCHC 34.4 g/dL (30-55) 07/17/23 05:04 RDW 14.9 % (12.1-15.1) 07/17/23 05:04 Plt Count 210 10^3/cmm (157-399) 07/17/23 05:04 MPV 10.0 fL (7.4-10.4) 07/17/23 05:04 Neut % (Auto) 66.6 % 07/17/23 05:04 Lymph % (Auto) 23.1 % 07/17/23 05:04 [place] % (Auto) 8.7 % 07/17/23 05:04 Eos % (Auto) 1.2 % 07/17/23 05:04 Baso % (Auto) 0.2 % 07/17/23 05:04 Neut # (Auto) 5.44 10^3/uL (1.8-7.7) 07/17/23 05:04 Lymph # (Auto) 1.9 10^3/uL (0.8-4.8) 07/17/23 05:04 [place] # (Auto) 0.7 10^3/uL (0.2-0.9) 07/17/23 05:04 Eos # (Auto) 0.1 10^3/uL (0.0-0.8) 07/17/23 05:04 Baso # (Auto) 0.0 10^3/uL (0.0-0.1) 07/17/23 05:04 Nucleated RBC % (auto) 0 % 07/17/23 05:04 Nucleated RBCs # 0.0 /100WBC 07/17/23 05:04 Sodium 136 mmol/L (136-145) 07/17/23 05:04 Potassium 4.0 mmol/L (3.5-5.1) 07/17/23 05:04 Chloride 100 mmol/L (98-107) 07/17/23 05:04 Carbon Dioxide 22 mmol/L (22-29) 07/17/23 05:04 Anion Gap 18.0 (5-19) 07/17/23 05:04 BUN 14 mg/dL (8-23) 07/17/23 05:04 Creatinine 1.0 mg/dL (0.7-1.2) 07/17/23 05:04 GFR Calculation Not Reportable 07/17/23 05:04 Glucose 130 mg/dL (65-115) H 07/17/23 05:04 Calculated Osmolality 284 mOsm/kg (285-295) L 07/17/23 05:04 Calcium 9.2 mg/dL (8.5-10.5) 07/17/23 05:04 Total Bilirubin 2.3 mg/dL (0.15-1.2) H 07/17/23 05:04 AST 17 U/L (0-40) 07/17/23 05:04 ALT 9 U/L (0-41) 07/17/23 05:04 Alkaline Phosphatase 83 U/L (40-130) 07/17/23 05:04 Troponin T Baseline 13 ng/L (0-15) 07/17/23 05:04 Troponin T 120 Minute 11.27 ng/L (0-15) 07/17/23 06:37 Delta Troponin T -1.73 ABS# (0-10) L 07/17/23 06:37 NT-Pro-B Natriuret Pep 4106 pg/mL (0-450) H 07/17/23 05:04 Total Protein 7.5 g/dL (6.6-8.7) 07/17/23 05:04 Albumin 4.0 g/dL (3.5-5.2) 07/17/23 05:04 Globulin 3.5 g/dL (1.3-4.6) 07/17/23 05:04 Discharge Plan Discharge Patient Disposition: Home Clinical Impression: Benign essential HTN, A-fib Dyspnea Qualifiers: Dyspnea type: unspecified Qualified Code(s): R06.00 - Dyspnea, unspecified Condition: Stable Prescriptions: New Lasix 40 mg tablet 40 mg PO DAILY Qty: 30 0RF Discontinued furosemide [Lasix] 20 mg tablet 20 mg PO DAILY Qty: 30 0RF No Action losartan 50 mg tablet 50 mg PO QAM Qty: 30 0RF aspirin 81 mg Tablet,Delayed Release (Dr/Ec) 81 mg PO QAM Qty: 30 0RF potassium chloride 8 mEq tablet extended release 8 meq PO QAM Qty: 30 0RF vitamin E 268 mg (400 unit) Capsule 1 cap PO DAILY Eliquis 5 mg tablet 5 mg PO DAILY metoprolol succinate [Toprol XL] 50 mg tablet extended release 24 hr 50 mg PO BID Qty: 30 0RF Discharge Orders: Discharge ED (Routine); Ordered 07/17/23 Ordered By: Chaz Lopez Discharge Diet: Advance as tolerated Discharge Activity: Resume usual activity Patient Instructions: A-fib (Atrial Fibrillation) (ED), Dyspnea (ED) Coding Level of Care 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 [employer] Documented by User: Chaz Lopez MD 07/17/23 07:30 HPI - SOB/Dyspnea 2 General: Chief Complaint: Shortness of Breath/Dyspnea Stated Complaint: SOB\Chest and Shoulders Hurts Time Seen by Provider: 07/17/23 04:50 PFSH ED 2 PFSH: Medical History Left ureteral calculus Renal mass Calculus of kidney with calculus of ureter History of atrial fibrillation Dyslipidemia (high LDL; low HDL) Chronic episodic atrial fibrillation Benign essential HTN Atherosclerotic heart disease of [place] coronary artery without angina pectoris Insomnia History of colon polyps Lumbar disc disease GERD (gastroesophageal reflux disease) Fibromyalgia Surgical History History of cardiac cath History of cholecystectomy History of shoulder surgery History of colonoscopy Family History Brother No problems noted. Father , at age 93 Dementia Parkinson disease Mother , at age 75 No problems noted. Denies family history of Diabetes CAD (coronary artery disease) Clotting disorder Chronic kidney disease (CKD) Suicide Anesthesia complication Bleeding disorder Lung disease Cancer Stroke Social History Smoking and tobacco/nicotine status: never used tobacco/nicotine Alcohol intake: current Alcohol intake frequency: holidays/special occasions only Substance/Drug Use: never Housing: House Marital status: / Current occupational status: retired Course 2 Vital Signs: Vital signs: Vital Signs Temperature 98.5 F 07/17/23 04:53 Pulse Rate 96 07/17/23 07:00 Respiratory Rate 16 07/17/23 06:44 Blood Pressure 177/114 07/17/23 07:00 Pulse Oximetry 96 07/17/23 07:00 Oxygen Delivery Me thod Room Air 07/17/23 07:00 MDM - SOB/Dyspnea Medical Decision Making Patient presents here with dyspnea all A-fib his heart rates much improved. He feels improved BNP is slightly elevated his x-ray is unchanged from yesterday he is in no distress here pulse ox normal did give him IV dose of Lasix will increase his Lasix from 20-40 he is to follow-up with PCP and return if worsening he understands agrees to plan Lab Data 07/17/23 05:04 07/17/23 05:04 Labs/Radiology: Laboratory Results WBC 8.18 10^3/uL (3.29-11.43) 07/17/23 05:04 RBC 4.16 10^6/uL (3.85-5.65) 07/17/23 05:04 Hgb 14.90 g/dL (11.27-16.99) 07/17/23 05:04 Hct 43.3 % (37-53) 07/17/23 05:04 MCV 104.1 fl (82-101) H 07/17/23 05:04 MCH 35.8 pg (27-33) H 07/17/23 05:04 MCHC 34.4 g/dL (30-55) 07/17/23 05:04 RDW 14.9 % (12.1-15.1) 07/17/23 05:04 Plt Count 210 10^3/cmm (157-399) 07/17/23 05:04 MPV 10.0 fL (7.4-10.4) 07/17/23 05:04 Neut % (Auto) 66.6 % 07/17/23 05:04 Lymph % (Auto) 23.1 % 07/17/23 05:04 [place] % (Auto) 8.7 % 07/17/23 05:04 Eos % (Auto) 1.2 % 07/17/23 05:04 Baso % (Auto) 0.2 % 07/17/23 05:04 Neut # (Auto) 5.44 10^3/uL (1.8-7.7) 07/17/23 05:04 Lymph # (Auto) 1.9 10^3/uL (0.8-4.8) 07/17/23 05:04 [place] # (Auto) 0.7 10^3/uL (0.2-0.9) 07/17/23 05:04 Eos # (Auto) 0.1 10^3/uL (0.0-0.8) 07/17/23 05:04 Baso # (Auto) 0.0 10^3/uL (0.0-0.1) 07/17/23 05:04 Nucleated RBC % (auto) 0 % 07/17/23 05:04 Nucleated RBCs # 0.0 /100WBC 07/17/23 05:04 Sodium 136 mmol/L (136-145) 07/17/23 05:04 Potassium 4.0 mmol/L (3.5-5.1) 07/17/23 05:04 Chloride 100 mmol/L (98-107) 07/17/23 05:04 Carbon Dioxide 22 mmol/L (22-29) 07/17/23 05:04 Anion Gap 18.0 (5-19) 07/17/23 05:04 BUN 14 mg/dL (8-23) 07/17/23 05:04 Creatinine 1.0 mg/dL (0.7-1.2) 07/17/23 05:04 GFR Calculation Not Reportable 07/17/23 05:04 Glucose 130 mg/dL (65-115) H 07/17/23 05:04 Calculated Osmolality 284 mOsm/kg (285-295) L 07/17/23 05:04 Calcium 9.2 mg/dL (8.5-10.5) 07/17/23 05:04 Total Bilirubin 2.3 mg/dL (0.15-1.2) H 07/17/23 05:04 AST 17 U/L (0-40) 07/17/23 05:04 ALT 9 U/L (0-41) 07/17/23 05:04 Alkaline Phosphatase 83 U/L (40-130) 07/17/23 05:04 Troponin T Baseline 13 ng/L (0-15) 07/17/23 05:04 Troponin T 120 Minute 11.27 ng/L (0-15) 07/17/23 06:37 Delta Troponin T -1.73 ABS# (0-10) L 07/17/23 06:37 NT-Pro-B Natriuret Pep 4106 pg/mL (0-450) H 07/17/23 05:04 Total Protein 7.5 g/dL (6.6-8.7) 07/17/23 05:04 Albumin 4.0 g/dL (3.5-5.2) 07/17/23 05:04 Globulin 3.5 g/dL (1.3-4.6) 07/17/23 05:04 All radiology interpretation(s) finalized by discharge Discharge Plan Discharge Patient Disposition: Home Clinical Impression: Benign essential HTN, A-fib Dyspnea Qualifiers: Dyspnea type: unspecified Qualified Code(s): R06.00 - Dyspnea, unspecified Condition: Stable Prescriptions: New Lasix 40 mg tablet 40 mg PO DAILY Qty: 30 0RF Discontinued furosemide [Lasix] 20 mg tablet 20 mg PO DAILY Qty: 30 0RF No Action losartan 50 mg tablet 50 mg PO QAM Qty: 30 0RF aspirin 81 mg Tablet,Delayed Release (Dr/Ec) 81 mg PO QAM Qty: 30 0RF potassium chloride 8 mEq tablet extended release 8 meq PO QAM Qty: 30 0RF vitamin E 268 mg (400 unit) Capsule 1 cap PO DAILY Eliquis 5 mg tablet 5 mg PO DAILY metoprolol succinate [Toprol XL] 50 mg tablet extended release 24 hr 50 mg PO BID Qty: 30 0RF Discharge Orders: Discharge ED (Routine); Ordered 07/17/23 Ordered By: Chaz Lopez Discharge Diet: Advance as tolerated Discharge Activity: Resume usual activity Patient Instructions: A-fib (Atrial Fibrillation) (ED), Dyspnea (ED) Coding Level of Care 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
[2023-07-17] MEDS: metoprolol tartrate 1 mg/1 mL SDV 5 mL 5 MG IVP (05:03)
[2023-07-17 05:14] LABS: Basophils % 0.2 %; Eosinophils # 0.1 10^3/uL (0.0-0.8); Eosinophils % 1.2 %; Hematocrit 43.3 % (37-53); Lymphocytes # 1.9 10^3/uL (0.8-4.8); Lymphocytes % 23.1 %; Mean Corpuscular HGB Conc 34.4 g/dL (30-55); Mean Corpuscular Hemoglobin 35.8 pg (27-33); Mean Corpuscular Volume 104.1 fl (82-101); Monocytes # 0.7 10^3/uL (0.2-0.9); Monocytes % 8.7 %; Neutrophils # 5.44 10^3/uL (1.8-7.7); Neutrophils % 66.6 %; Nucleated Red Blood Cells % 0 %; Platelet Count 210 10^3/cmm (157-399); Red Blood Count 4.16 10^6/uL (3.85-5.65); Red Cell Distribution Width 14.9 % (12.1-15.1); White Blood Count 8.18 10^3/uL (3.29-11.43)
[2023-07-17 05:25] VITALS: BP 173/117; PULSE 97; RESP 16; O2SAT 97
[2023-07-17 05:41] LABS: Troponin(5th) Baseline 13 ng/L (0-15)
[2023-07-17 05:50] LABS: Alanine Aminotransferase 9 U/L (0-41); Alkaline Phosphatase 83 U/L (40-130); Aspartate Amino Transferase 17 U/L (0-40); Blood Urea Nitrogen 14 mg/dL (8-23); Calcium 9.2 mg/dL (8.5-10.5); Carbon Dioxide 22 mmol/L (22-29); Chloride 100 mmol/L (98-107); Creatinine Clr Calc Pharmacy 60.1434; Globulin 3.5 g/dL (1.3-4.6); Glucose 130 mg/dL (65-115); Osmolality Calculated 284 mOsm/kg (285-295); Sodium 136 mmol/L (136-145); Total Bilirubin 2.3 mg/dL (0.15-1.2); Total Protein 7.5 g/dL (6.6-8.7)
[2023-07-17 05:51] LABS: NT Pro B Type Natriuretic Pept 4106 pg/mL (0-450)
--- NOTE | 2023-07-17 06:00 | XRR_ITS ---
PROCEDURE INFORMATION: Exam: XR Chest Exam date and time: 07/17/2023 6:40 AM Age: 82 years old Clinical indication: Shortness of breath; Patient HX: SOB; Chest/shoulder pain; No previous cardiac HX TECHNIQUE: Imaging protocol: Radiologic exam of the chest. Views: 1 view. COMPARISON: CR (CHEST, ) 07/16/2023 4:24 AM FINDINGS: Lungs: No focal consolidation. Questionable mild pulmonary edema, minimally improved. Pleural spaces: No large pleural effusion. No distinct pneumothorax. Heart/Mediastinum: Cardiomediastinal silhouette is midline and stable in size. Bones/joints: Osseous structures are unchanged. XR/XR chest 1V portable [id number] IMPRESSION: Questionable mild pulmonary edema, minimally improved from prior comparison.
[2023-07-17 06:03] VITALS: BP 173/106; PULSE 82; RESP 16; O2SAT 95
--- NOTE | 2023-07-17 06:39 | ECG_ITS ---
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 Measurements Intervals [place] Rate: 101 P: 0 DE: 0 QRS: 13 QRSD: 77 T: 51 QT: 371 QTc: 483 Interpretive Statements ATRIAL FIBRILLATION WITH RAPID VENTRICULAR RESPONSE Compared to ECG 07/16/2023 06:17:16 Myocardial infarct finding no longer present Electronically Signed On 07-17-2023 17:21:02 CDT by Maximino Berkowitz M.D. [email or web address] [email or web address] children's medical [email or web address]/store/[id number]
[2023-07-17 06:44] VITALS: BP 173/125; PULSE 85; RESP 16; O2SAT 96
[2023-07-17] MEDS: labetalol 5 mg/mL SDV 20mL 10 MG IVP (06:57)
[2023-07-17] MEDS: FUROsemide 10 mg/mL SDV 10mL 60 MG IVP (06:59)
[2023-07-17 07:00] VITALS: BP 177/114; PULSE 96; O2SAT 96
[2023-07-17 07:05] LABS: Troponin 5 2HR 11.27 ng/L (0-15)
[2023-07-17 07:07] LABS: Troponin 5 2HR Delta -1.73 ABS# (0-10)
[2023-07-17 07:35] VITALS: BP 170/99; PULSE 97; O2SAT 98
== END 2023-07-17 07:36 | disposition home or self-care (01) ==
PROVIDERS: Emergency Medicine; Emergency Provider Emergency Medicine
DX: R06.00 Dyspnea, unspecified (principal); I10 Essential (primary) hypertension; I48.91 Unspecified atrial fibrillation; Z79.82 Long term (current) use of aspirin; Z79.01 Long term (current) use of anticoagulants; E78.5 Hyperlipidemia, unspecified; I25.10 Atherosclerotic heart disease of native coronary artery without angina pectoris
CPT/HCPCS: 71045; 80053; 83880; 84484; 85025; 93005; 96374; 96375; 99285; J1940; J3490

== ENCOUNTER 2023-07-26 04:55 | Emergency (ER) | payer MEDICARE, MEDICAID, SELFPAY ==
[2023-07-26 05:08] VITALS: BP 181/143; PULSE 98; RESP 30; TEMP 36.4; O2SAT 95; BMI 30.4
--- NOTE | 2023-07-26 05:17 | ECG_ITS ---
[facility] Test Date: 2023-07-26 Pat Name: David Orozco Department: Room: Gender: Male Pleater: : 1940 Requested By: Wisam Avila Order Number: [id number] Lopez MD: Henna Louis M.D. Measurements Intervals [place] Rate: 106 P: 0 WV: 0 QRS: -1 QRSD: 89 T: 50 QT: 355 QTc: 472 Interpretive Statements ATRIAL FIBRILLATION WITH RAPID VENTRICULAR RESPONSE MODERATE ST DEPRESSION [0.05+ mV ST DEPRESSION] Compared to ECG 07/17/2023 06:39:14 ST (T wave) deviation now present Electronically Signed On 07-26-2023 12:08:27 CDT by Henna Louis M.D. [email or web address]/[id number] f
[2023-07-26 05:42] VITALS: BP 189/133; PULSE 85; RESP 16; O2SAT 95
--- NOTE | 2023-07-26 05:48 | XRR_ITS ---
PROCEDURE INFORMATION: Exam: XR Chest Exam date and time: 07/26/2023 6:04 AM Age: 82 years old Clinical indication: Shortness of breath; Patient HX: C/O SOB TECHNIQUE: Imaging protocol: Radiologic exam of the chest. Views: 1 view. COMPARISON: CR XR chest 1V portable [id number] 07/17/2023 6:40 AM FINDINGS: Lungs: Extremely minimal opacity in the left mid lung. Pleural spaces: Unremarkable. No pleural effusion. No pneumothorax. Heart/Mediastinum: Unremarkable. No cardiomegaly. Bones/joints: Unremarkable. XR/XR chest 1V portable [id number] IMPRESSION: Extremely minimal infiltrate or atelectasis in the left mid lung.
[2023-07-26 05:55] LABS: Basophils % 0.3 %; Eosinophils # 0.2 10^3/uL (0.0-0.8); Eosinophils % 2.3 %; Hematocrit 40.2 % (37-53); Lymphocytes # 1.7 10^3/uL (0.8-4.8); Lymphocytes % 18.2 %; Mean Corpuscular HGB Conc 34.1 g/dL (30-55); Mean Corpuscular Volume 105.5 fl (82-101); Mean Platelet Volume 11.2 fL (7.4-10.4); Monocytes # 0.9 10^3/uL (0.2-0.9); Monocytes % 10.2 %; Neutrophils # 6.21 10^3/uL (1.8-7.7); Neutrophils % 68.6 %; Nucleated Red Blood Cells % 0 %; Platelet Count 201 10^3/cmm (157-399); Red Blood Count 3.81 10^6/uL (3.85-5.65); Red Cell Distribution Width 14.9 % (12.1-15.1); White Blood Count 9.06 10^3/uL (3.29-11.43)
[2023-07-26] MEDS: metoprolol tartrate 1 mg/1 mL SDV 5 mL 5 MG IVP (06:19)
[2023-07-26] MEDS: FUROsemide 10 mg/mL SDV 10mL 60 MG IVP (06:19)
[2023-07-26 06:20] VITALS: BP 158/113; PULSE 92; RESP 20; O2SAT 94
--- NOTE | 2023-07-26 06:25 | ED_ITS ---
Documented by User: Wisam Mendez DO 07/28/23 04:41 HPI - SOB/Dyspnea 2 General: Chief Complaint: Shortness of Breath/Dyspnea Stated Complaint: SOB\Cough Time Seen by Provider: 07/26/23 05:30 History of Present Illness: HPI Narrative: 82-year-old gentleman with history of [place] PD and heart failure as well as atrial fibrillation. He presents with shortness of breath that woke him from sleep. He experiences pain between his shoulder blades. Instead of taking his normal morning medications, he came to emergency department. His symptoms are essentially resolved on his arrival here. He is hypertensive and mildly tachycardic, presumably from not taking his medicine this morning. He denies fever. He denies increased leg swelling. He denies significant cough. PFSH ED 2 PFSH: Medical History Left ureteral calculus Renal mass Calculus of kidney with calculus of ureter History of atrial fibrillation Dyslipidemia (high LDL; low HDL) Chronic episodic atrial fibrillation Benign essential HTN Atherosclerotic heart disease of [place] coronary artery without angina pectoris Insomnia History of colon polyps Lumbar disc disease GERD (gastroesophageal reflux disease) Fibromyalgia Surgical History History of cardiac cath History of cholecystectomy History of shoulder surgery History of colonoscopy Family History Brother No problems noted. Father , at age 93 Dementia Parkinson disease Mother , at age 75 No problems noted. Denies family history of Diabetes CAD (coronary artery disease) Clotting disorder Chronic kidney disease (CKD) Suicide Anesthesia complication Bleeding disorder Lung disease Cancer Stroke Social History Smoking and tobacco/nicotine status: never used tobacco/nicotine Alcohol intake: current Alcohol intake frequency: holidays/special occasions only Substance/Drug Use: never Housing: House Marital status: / Current occupational status: retired Physical Exam 2 Const: COMMON NORMALS: no acute distress GENERAL APPEARANCE: cooperative and frail appearing (mildly) HENMT: COMMON NORMALS: normocephalic, atraumatic and Normal external nose present HEAD & SCALP: normocephalic and atraumatic NOSE: Normal external nose present Chest: CHEST: Yes Symmetrical chest wall rise Resp: COMMON NORMALS: normal respiratory effort, No use of accessory muscles and clear to auscultation bilaterally AUSCULTATION: clear to auscultation bilaterally Cardio: COMMON NORMALS: regular rate and regular rhythm RATE: regular rate RHYTHM: regular rhythm GI: COMMON NORMALS: Normal to inspection, nondistended, normoactive bowel sounds present Course 2 Vital Signs: Vital signs: Vital Signs Temperature 97.6 F 07/26/23 05:08 Pulse Rate 97 07/26/23 10:03 Respiratory Rate 17 07/26/23 10:03 Blood Pressure 184/82 07/26/23 10:03 Pulse Oximetry 94 07/26/23 10:03 Oxygen Delivery Me thod Room Air 07/26/23 07:40 MDM - SOB/Dyspnea Medical Decision Making Mr. Orozco has become well-known to the ER service. He presents with some discomfort between his shoulder blades and shortness of breath this morning. His symptoms are resolved on his arrival. His CBC is normal. His EKG does not show acute ST wave changes. His chest x-ray is stable from prior, 9 days ago. He is given 40 mg of Lasix, and IV metoprolol here. His vitals are otherwise stable. He will be allowed discharge, to return to his home medications. Close outpatient follow-up. Return for worsening symptoms Lab Data 07/26/23 05:38 07/26/23 08:18 Labs/Radiology: Radiology Impressions Chest X-Ray 07/26/23 05:48 IMPRESSION: Extremely minimal infiltrate or atelectasis in the left mid lung. Laboratory Results WBC 9.06 10^3/uL (3.29-11.43) 07/26/23 05:38 RBC 3.81 10^6/uL (3.85-5.65) L 07/26/23 05:38 Hgb 13.70 g/dL (11.27-16.99) 07/26/23 05:38 Hct 40.2 % (37-53) 07/26/23 05:38 MCV 105.5 fl (82-101) H 07/26/23 05:38 MCH 36.0 pg (27-33) H 07/26/23 05:38 MCHC 34.1 g/dL (30-55) 07/26/23 05:38 RDW 14.9 % (12.1-15.1) 07/26/23 05:38 Plt Count 201 10^3/cmm (157-399) 07/26/23 05:38 MPV 11.2 fL (7.4-10.4) H 07/26/23 05:38 Neut % (Auto) 68.6 % 07/26/23 05:38 Lymph % (Auto) 18.2 % 07/26/23 05:38 [place] % (Auto) 10.2 % 07/26/23 05:38 Eos % (Auto) 2.3 % 07/26/23 05:38 Baso % (Auto) 0.3 % 07/26/23 05:38 Neut # (Auto) 6.21 10^3/uL (1.8-7.7) 07/26/23 05:38 Lymph # (Auto) 1.7 10^3/uL (0.8-4.8) 07/26/23 05:38 [place] # (Auto) 0.9 10^3/uL (0.2-0.9) 07/26/23 05:38 Eos # (Auto) 0.2 10^3/uL (0.0-0.8) 07/26/23 05:38 Baso # (Auto) 0.0 10^3/uL (0.0-0.1) 07/26/23 05:38 Nucleated RBC % (auto) 0 % 07/26/23 05:38 Nucleated RBCs # 0.0 /100WBC 07/26/23 05:38 Sodium 137 mmol/L (136-145) 07/26/23 08:18 Potassium 3.9 mmol/L (3.5-5.1) 07/26/23 08:18 Chloride 101 mmol/L (98-107) 07/26/23 08:18 Carbon Dioxide 19 mmol/L (22-29) L 07/26/23 08:18 Anion Gap 20.9 (5-19) H 07/26/23 08:18 BUN 14 mg/dL (8-23) 07/26/23 08:18 Creatinine 1.0 mg/dL (0.7-1.2) 07/26/23 08:18 GFR Calculation Not Reportable 07/26/23 08:18 Glucose 97 mg/dL (65-115) 07/26/23 08:18 Calculated Osmolality 284 mOsm/kg (285-295) L 07/26/23 08:18 Calcium 9.2 mg/dL (8.5-10.5) 07/26/23 08:18 Total Bilirubin 1.4 mg/dL (0.15-1.2) H 07/26/23 08:18 AST 18 U/L (0-40) 07/26/23 08:18 ALT 10 U/L (0-41) 07/26/23 08:18 Alkaline Phosphatase 82 U/L (40-130) 07/26/23 08:18 Troponin T Baseline 14 ng/L (0-15) 07/26/23 08:18 NT-Pro-B Natriuret Pep 3733 pg/mL (0-450) H 07/26/23 08:18 Total Protein 7.7 g/dL (6.6-8.7) 07/26/23 08:18 Albumin 4.1 g/dL (3.5-5.2) 07/26/23 08:18 Globulin 3.6 g/dL (1.3-4.6) 07/26/23 08:18 Discharge Plan Discharge Patient Disposition: Home Clinical Impression: Atherosclerotic heart disease of [place] coronary artery without angina pectoris Qualifiers: [place] vs. transplanted heart: ch[place]koot heart Qualified Code(s): I25.10 - Atherosclerotic heart disease of [place] coronary artery without angina pectoris Congestive heart failure Qualifiers: Heart failure type: unspecified Heart failure chronicity: chronic Qualified Code(s): I50.9 - Heart failure, unspecified A-fib Qualifiers: Atrial fibrillation type: longstanding persistent Qualified Code(s): I48.11 - Longstanding persistent atrial fibrillation Condition: Stable Prescriptions: No Action losartan 50 mg tablet 50 mg PO QAM Qty: 30 0RF aspirin 81 mg Tablet,Delayed Release (Dr/Ec) 81 mg PO QAM Qty: 30 0RF potassium chloride 8 mEq tablet extended release 8 meq PO QAM Qty: 30 0RF vitamin E 268 mg (400 unit) Capsule 1 cap PO DAILY Eliquis 5 mg tablet 5 mg PO DAILY metoprolol succinate [Toprol XL] 50 mg tablet extended release 24 hr 50 mg PO BID Qty: 30 0RF furosemide [Lasix] 40 mg tablet 40 mg PO DAILY Qty: 30 0RF Discharge Orders: Discharge ED (Routine); Ordered 07/26/23 Ordered By: Glynn David Patient Instructions: Heart Failure (ED), Opioid Safety, Pain Management Activity Restrictions/Additional Instructions: Be sure to take your regular morning medications when you get home. Resume medications as directed by your doctor. Follow-up with your doctor this week. Return for any worsening symptoms. Sign Out Sign Out Data: Patient Sign Out occurred on 07/26/23 at 08:05. Patient's care was discussed, and care was transferred from Wisam Mendez DO to Glynn David DO. Coding Level of Care Code ED Enginehouse Brakeman for Chg Fwd Documented by User: Glynn David DO 07/26/23 11:19 HPI - SOB/Dyspnea 2 General: Chief Complaint: Shortness of Breath/Dyspnea Stated Complaint: SOB\Cough Time Seen by Provider: 07/26/23 05:30 PFSH ED 2 PFSH: Medical History Left ureteral calculus Renal mass Calculus of kidney with calculus of ureter History of atrial fibrillation Dyslipidemia (high LDL; low HDL) Chronic episodic atrial fibrillation Benign essential HTN Atherosclerotic heart disease of [place] coronary artery without angina pectoris Insomnia History of colon polyps Lumbar disc disease GERD (gastroesophageal reflux disease) Fibromyalgia Surgical History History of cardiac cath History of cholecystectomy History of shoulder surgery History of colonoscopy Family History Brother No problems noted. Father , at age 93 Dementia Parkinson disease Mother , at age 75 No problems noted. Denies family history of Diabetes CAD (coronary artery disease) Clotting disorder Chronic kidney disease (CKD) Suicide Anesthesia complication Bleeding disorder Lung disease Cancer Stroke Social History Smoking and tobacco/nicotine status: never used tobacco/nicotine Alcohol intake: current Alcohol intake frequency: holidays/special occasions only Substance/Drug Use: never Housing: House Marital status: / Current occupational status: retired Course 2 Vital Signs: Vital signs: Vital Signs Temperature 97.6 F 07/26/23 05:08 Pulse Rate 97 07/26/23 10:03 Respiratory Rate 17 07/26/23 10:03 Blood Pressure 184/82 07/26/23 10:03 Pulse Oximetry 94 07/26/23 10:03 Oxygen Delivery Me thod Room Air 07/26/23 07:40 MDM - SOB/Dyspnea Medical Decision Making Mr. Orozco has become well-known to the ER service. He presents with some discomfort between his shoulder blades and shortness of breath this morning. His symptoms are resolved on his arrival. His CBC is normal. His EKG does not show acute ST wave changes. His chest x-ray is stable from prior, 9 days ago. He is given 40 mg of Lasix, and IV metoprolol here. His vitals are otherwise stable. He will be allowed discharge, to return to his home medications. Close outpatient follow-up. Return for worsening symptoms Care assumed at change of shift rate is better enzymes negative will discharge patient home symptoms have resolved encouraged follow-up with outpatient clinic Medical Records I reviewed the patient's medical records. Lab Data I reviewed the patient's lab results. 07/26/23 05:38 07/26/23 08:18 Labs/Radiology: Radiology Impressions Chest X-Ray 07/26/23 05:48 IMPRESSION: Extremely minimal infiltrate or atelectasis in the left mid lung. Laboratory Results WBC 9.06 10^3/uL (3.29-11.43) 07/26/23 05:38 RBC 3.81 10^6/uL (3.85-5.65) L 07/26/23 05:38 Hgb 13.70 g/dL (11.27-16.99) 07/26/23 05:38 Hct 40.2 % (37-53) 07/26/23 05:38 MCV 105.5 fl (82-101) H 07/26/23 05:38 MCH 36.0 pg (27-33) H 07/26/23 05:38 MCHC 34.1 g/dL (30-55) 07/26/23 05:38 RDW 14.9 % (12.1-15.1) 07/26/23 05:38 Plt Count 201 10^3/cmm (157-399) 07/26/23 05:38 MPV 11.2 fL (7.4-10.4) H 07/26/23 05:38 Neut % (Auto) 68.6 % 07/26/23 05:38 Lymph % (Auto) 18.2 % 07/26/23 05:38 [place] % (Auto) 10.2 % 07/26/23 05:38 Eos % (Auto) 2.3 % 07/26/23 05:38 Baso % (Auto) 0.3 % 07/26/23 05:38 Neut # (Auto) 6.21 10^3/uL (1.8-7.7) 07/26/23 05:38 Lymph # (Auto) 1.7 10^3/uL (0.8-4.8) 07/26/23 05:38 [place] # (Auto) 0.9 10^3/uL (0.2-0.9) 07/26/23 05:38 Eos # (Auto) 0.2 10^3/uL (0.0-0.8) 07/26/23 05:38 Baso # (Auto) 0.0 10^3/uL (0.0-0.1) 07/26/23 05:38 Nucleated RBC % (auto) 0 % 07/26/23 05:38 Nucleated RBCs # 0.0 /100WBC 07/26/23 05:38 Sodium 137 mmol/L (136-145) 07/26/23 08:18 Potassium 3.9 mmol/L (3.5-5.1) 07/26/23 08:18 Chloride 101 mmol/L (98-107) 07/26/23 08:18 Carbon Dioxide 19 mmol/L (22-29) L 07/26/23 08:18 Anion Gap 20.9 (5-19) H 07/26/23 08:18 BUN 14 mg/dL (8-23) 07/26/23 08:18 Creatinine 1.0 mg/dL (0.7-1.2) 07/26/23 08:18 GFR Calculation Not Reportable 07/26/23 08:18 Glucose 97 mg/dL (65-115) 07/26/23 08:18 Calculated Osmolality 284 mOsm/kg (285-295) L 07/26/23 08:18 Calcium 9.2 mg/dL (8.5-10.5) 07/26/23 08:18 Total Bilirubin 1.4 mg/dL (0.15-1.2) H 07/26/23 08:18 AST 18 U/L (0-40) 07/26/23 08:18 ALT 10 U/L (0-41) 07/26/23 08:18 Alkaline Phosphatase 82 U/L (40-130) 07/26/23 08:18 Troponin T Baseline 14 ng/L (0-15) 07/26/23 08:18 NT-Pro-B Natriuret Pep 3733 pg/mL (0-450) H 07/26/23 08:18 Total Protein 7.7 g/dL (6.6-8.7) 07/26/23 08:18 Albumin 4.1 g/dL (3.5-5.2) 07/26/23 08:18 Globulin 3.6 g/dL (1.3-4.6) 07/26/23 08:18 All radiology interpretation(s) finalized by discharge Discharge Plan Discharge Patient Disposition: Home Clinical Impression: Atherosclerotic heart disease of [place] coronary artery without angina pectoris Qualifiers: [place] vs. transplanted heart: ch[place]koot heart Qualified Code(s): I25.10 - Atherosclerotic heart disease of [place] coronary artery without angina pectoris Congestive heart failure Qualifiers: Heart failure type: unspecified Heart failure chronicity: chronic Qualified Code(s): I50.9 - Heart failure, unspecified A-fib Qualifiers: Atrial fibrillation type: longstanding persistent Qualified Code(s): I48.11 - Longstanding persistent atrial fibrillation Condition: Stable Prescriptions: No Action losartan 50 mg tablet 50 mg PO QAM Qty: 30 0RF aspirin 81 mg Tablet,Delayed Release (Dr/Ec) 81 mg PO QAM Qty: 30 0RF potassium chloride 8 mEq tablet extended release 8 meq PO QAM Qty: 30 0RF vitamin E 268 mg (400 unit) Capsule 1 cap PO DAILY Eliquis 5 mg tablet 5 mg PO DAILY metoprolol succinate [Toprol XL] 50 mg tablet extended release 24 hr 50 mg PO BID Qty: 30 0RF furosemide [Lasix] 40 mg tablet 40 mg PO DAILY Qty: 30 0RF Discharge Orders: Discharge ED (Routine); Ordered 07/26/23 Ordered By: Glynn David Patient Instructions: Heart Failure (ED), Opioid Safety, Pain Management Activity Restrictions/Additional Instructions: Be sure to take your regular morning medications when you get home. Resume medications as directed by your doctor. Follow-up with your doctor this week. Return for any worsening symptoms. Sign Out Sign Out Data: Patient Sign Out occurred on 07/26/23 at 08:05. Patient's care was discussed, and care was transferred from Wisam Mendez DO to Glynn David DO. Coding Level of Care Code ED Engine[employer] Brakeman for Victor M Hale
[2023-07-26 07:40] VITALS: BP 170/115; PULSE 103; O2SAT 91
--- NOTE | 2023-07-26 07:48 | ECG_ITS ---
[facility] Test Date: 2023-07-26 Pat Name: David Orozco Department: Room: Gender: Male Scrap Sorter: : 1940 Requested By: Wisam Avila Order Number: [id number] Jessica MD: Henna Louis M.D. Measurements Intervals [place] Rate: 91 P: 0 [place]: 0 QRS: 9 QRSD: 88 T: 61 QT: 371 QTc: 457 Interpretive Statements ATRIAL FIBRILLATION MINIMAL ST DEPRESSION [0.025+ mV ST DEPRESSION] ABNORMAL RHYTHM ECG Compared to ECG 07/26/2023 05:13:56 No significant changes Electronically Signed On 07-26-2023 12:44:20 CDT by Henna Louis M.D. [id number]
[2023-07-26 09:06] LABS: Troponin(5th) Baseline 14 ng/L (0-15)
[2023-07-26 09:20] LABS: Alanine Aminotransferase 10 U/L (0-41); Albumin Level 4.1 g/dL (3.5-5.2); Alkaline Phosphatase 82 U/L (40-130); Blood Urea Nitrogen 14 mg/dL (8-23); Calcium 9.2 mg/dL (8.5-10.5); Carbon Dioxide 19 mmol/L (22-29); Chloride 101 mmol/L (98-107); Creatinine Clr Calc Pharmacy 60.1434; Globulin 3.6 g/dL (1.3-4.6); Glucose 97 mg/dL (65-115); NT Pro B Type Natriuretic Pept 3733 pg/mL (0-450); Osmolality Calculated 284 mOsm/kg (285-295); Sodium 137 mmol/L (136-145); Total Bilirubin 1.4 mg/dL (0.15-1.2); Total Protein 7.7 g/dL (6.6-8.7)
[2023-07-26 09:24] LABS: Anion Gap 20.9 (5-19); Aspartate Amino Transferase 18 U/L (0-40); Potassium 3.9 mmol/L (3.5-5.1)
[2023-07-26 10:03] VITALS: BP 184/82; PULSE 97; RESP 17; O2SAT 94
== END 2023-07-26 10:06 | disposition home or self-care (01) ==
PROVIDERS: Emergency Medicine; Emergency Provider Family Medicine
DX: I25.10 Atherosclerotic heart disease of native coronary artery without angina pectoris (principal); I50.9 Heart failure, unspecified; I48.11 Longstanding persistent atrial fibrillation
CPT/HCPCS: 36415; 71045; 80053; 83880; 84484; 85025; 93005; 96374; 96375; 99285; J1940; J3490

== ENCOUNTER 2023-08-11 03:47 | Emergency (ER) | payer MEDICARE, MEDICAID, SELFPAY ==
[2023-08-11 03:53] VITALS: BP 165/130; PULSE 85; RESP 18; TEMP 36.4; O2SAT 94; BMI 30.4
--- NOTE | 2023-08-11 04:01 | XRR_ITS ---
PROCEDURE INFORMATION: Exam: XR Chest Exam date and time: 08/11/2023 4:27 AM Age: 82 years old Clinical indication: Shortness of breath; Chest pressure; Patient HX: C/O chest pain with SOB; Additional info: Cp SOB TECHNIQUE: Imaging protocol: Radiologic exam of the chest. Views: 1 view. COMPARISON: CR XR chest 1V portable [id number] 07/26/2023 6:04 AM FINDINGS: Lungs: There is pulmonary vascular congestion. There is atelectasis in the right infrahilar region. There are no definite infiltrates. Pleural spaces: Unremarkable. No pleural effusion. No pneumothorax. Heart/Mediastinum: The heart is mildly enlarged. Bones/joints: There are degenerative changes in the spine and shoulders XR/XR chest 1V portable [id number] IMPRESSION: 1. Stable cardiomegaly 2. Pulmonary vascular congestion without overt pulmonary edema 3. Mild atelectasis without definite infiltrate
--- NOTE | 2023-08-11 04:01 | ECG_ITS ---
[facility] Test Date: 2023-08-11 Pat Name: David Orozco Department: Room: Gender: Male News Producer: : 1940 Requested By: Wisam Avila Order Number: [id number] Jessica MD: Js Hendricks M.D. Measurements Intervals [place] Rate: 85 P: 0 [place]: 0 QRS: 35 QRSD: 80 T: 49 QT: 371 QTc: 442 Interpretive Statements ATRIAL FIBRILLATION ABNORMAL RHYTHM ECG Compared to ECG 07/26/2023 08:26:18 ST (T wave) deviation no longer present Electronically Signed On 08-11-2023 14:30:14 CDT by Js Hendricks M.D. [id number]
--- NOTE | 2023-08-11 04:17 | ED_ITS ---
HPI - Chest Pain 2 General: Chief Complaint: Chest Pain Stated Complaint: HePain around Heart Time Seen by Provider: 08/11/23 04:01 History of Present Illness: 82 year old gentleman with a history of heart disease, atrial fibrillation, and heart failure. He is well known to the emergency department. He often presents in the morning with symptoms of chest discomfort and shortness of breath that wake him from sleep. He has a very similar story this morning. He woke around 4:00 AM with symptoms. They are resolved on his arrival to the emergency department. He is still wanting to be seen and evaluated, as well as treated. He denies any fever. No significant cough. No significant leg swelling. Associated symptoms: Deny abdominal pain, fever(s), nausea or vomiting Review of Systems 2 Const: Denies: fever(s), chills or body aches Eyes: Denies: change in vision Resp: Denies: productive cough, non-productive cough or wheezing GI: Denies: abdominal pain, nausea, vomiting, diarrhea or hematochezia Skin/Breast: Denies: rash Neuro: Denies: headache(s), weakness in extremities, dizziness or confusion PFSH ED 2 PFSH: Medical History Left ureteral calculus Renal mass Calculus of kidney with calculus of ureter History of atrial fibrillation Dyslipidemia (high LDL; low HDL) Chronic episodic atrial fibrillation Benign essential HTN Atherosclerotic heart disease of [place] coronary artery without angina pectoris Insomnia History of colon polyps Lumbar disc disease GERD (gastroesophageal reflux disease) Fibromyalgia Surgical History History of cardiac cath History of cholecystectomy History of shoulder surgery History of colonoscopy Family History Brother No problems noted. Father , at age 93 Dementia Parkinson disease Mother , at age 75 No problems noted. Denies family history of Diabetes CAD (coronary artery disease) Clotting disorder Chronic kidney disease (CKD) Suicide Anesthesia complication Bleeding disorder Lung disease Cancer Stroke Social History Smoking and tobacco/nicotine status: never used tobacco/nicotine Alcohol intake: current Alcohol intake frequency: holidays/special occasions only Substance/Drug Use: never Housing: House Marital status: / Current occupational status: retired Physical Exam 2 Const: COMMON NORMALS: no acute distress GENERAL APPEARANCE: cooperative; not ill appearing and not frail appearing HENMT: COMMON NORMALS: normocephalic, atraumatic and Normal external nose present HEAD & SCALP: normocephalic and atraumatic FACE & SINUS: normal facial exam and face symmetric NOSE: Normal external nose present Eye: COMMON NORMALS: Equal, round and reactive pupils present and EOMs intact bilaterally PUPIL: Yes Equal, round and reactive pupils present Neck/C-Spine: GENERAL: Yes trachea midline Chest: CHEST: Yes Symmetrical chest wall rise Resp: COMMON NORMALS: normal respiratory effort, No retractions, No use of accessory muscles and clear to auscultation bilaterally AUSCULTATION: clear to auscultation bilaterally Cardio: COMMON NORMALS: regular rate RATE: regular rate RHYTHM: abnormal rhythm irregularly irregular GI: COMMON NORMALS: Normal to inspection, nondistended, normoactive bowel sounds present Extremity: COMMON NORMALS: no pedal edema Neuro: KIRA COMA SCALE: document GCS findings [place] coma scale eye opening: Spontaneous [place] coma scale verbal response: Orientated [place] coma scale motor response: Obey commands [place] coma scale total score: 15 S ENSORY EXAM: Yes extremities (intact) Psych: COMMON NORMALS: speech normal SPEECH: Yes normal speech Skin: COMMON NORMALS: no rashes or lesions noted GENERAL SKIN EXAM: no rashes or lesions noted Course 2 Vital Signs: Vital signs: Vital Signs Temperature 97.6 F 08/11/23 03:53 Pulse Rate 90 08/11/23 06:41 Respiratory Rate 29 H 08/11/23 06:41 Blood Pressure 165/116 08/11/23 06:41 Pulse Oximetry 96 08/11/23 06:41 Oxygen Delivery Me thod Room Air 08/11/23 03:53 MDM - Chest Pain Medical Decision Making Heart rate and blood pressure are somewhat improved after administration of intravenous metoprolol as well as his morning medication. He is asymptomatic. He has walked in the yard with improvement. He put out close to a liter of urine following administration of intravenous furosemide. He wants to go home. And he'll be allowed to go home with close outpatient cardiology follow up. He knows to return for any worsening symptoms. Laboratory. Troponin at baseline. BNP elevated but near his baseline levels. Other laboratory not terribly remarkable. Lab Data 08/11/23 04:33 08/11/23 04:33 Radiology Impressions Chest X-Ray 08/11/23 04:01 IMPRESSION: 1. Stable cardiomegaly 2. Pulmonary vascular congestion without overt pulmonary edema 3. Mild atelectasis without definite infiltrate Laboratory Results WBC 7.58 10^3/uL (3.29-11.43) 08/11/23 04:33 RBC 3.91 10^6/uL (3.85-5.65) 08/11/23 04:33 Hgb 13.90 g/dL (11.27-16.99) 08/11/23 04:33 Hct 41.1 % (37-53) 08/11/23 04:33 MCV 105.1 fl (82-101) H 08/11/23 04:33 MCH 35.5 pg (27-33) H 08/11/23 04:33 MCHC 33.8 g/dL (30-55) 08/11/23 04:33 RDW 14.1 % (12.1-15.1) 08/11/23 04:33 Plt Count 201 10^3/cmm (157-399) 08/11/23 04:33 MPV 10.2 fL (7.4-10.4) 08/11/23 04:33 Neut % (Auto) 67.5 % 08/11/23 04:33 Lymph % (Auto) 19.1 % 08/11/23 04:33 [place] % (Auto) 11.2 % 08/11/23 04:33 Eos % (Auto) 1.5 % 08/11/23 04:33 Baso % (Auto) 0.4 % 08/11/23 04:33 Neut # (Auto) 5.12 10^3/uL (1.8-7.7) 08/11/23 04:33 Lymph # (Auto) 1.5 10^3/uL (0.8-4.8) 08/11/23 04:33 [place] # (Auto) 0.9 10^3/uL (0.2-0.9) 08/11/23 04:33 Eos # (Auto) 0.1 10^3/uL (0.0-0.8) 08/11/23 04:33 Baso # (Auto) 0.0 10^3/uL (0.0-0.1) 08/11/23 04:33 Nucleated RBC % (auto) 0 % 08/11/23 04:33 Nucleated RBCs # 0.0 /100WBC 08/11/23 04:33 PT 19.50 SECONDS (12.1-14.9) H 08/11/23 04:33 INR 1.59 (0.8-1.2) H 08/11/23 04:33 APTT 29.6 SECONDS (23.9-36.7) 08/11/23 04:33 Sodium 137 mmol/L (136-145) 08/11/23 04:33 Potassium 4.3 mmol/L (3.5-5.1) 08/11/23 04:33 Chloride 105 mmol/L (98-107) 08/11/23 04:33 Carbon Dioxide 20 mmol/L (22-29) L 08/11/23 04:33 Anion Gap 16.3 (5-19) 08/11/23 04:33 BUN 14 mg/dL (8-23) 08/11/23 04:33 Creatinine 1.1 mg/dL (0.7-1.2) 08/11/23 04:33 GFR Calculation Not Reportable 08/11/23 04:33 Glucose 122 mg/dL (65-115) H 08/11/23 04:33 Calculated Osmolality 286 mOsm/kg (285-295) 08/11/23 04:33 Calcium 8.8 mg/dL (8.5-10.5) 08/11/23 04:33 Total Bilirubin 1.5 mg/dL (0.15-1.2) H 08/11/23 04:33 AST 24 U/L (0-40) 08/11/23 04:33 ALT 11 U/L (0-41) 08/11/23 04:33 Alkaline Phosphatase 76 U/L (40-130) 08/11/23 04:33 Troponin T Baseline 14 ng/L (0-15) 08/11/23 04:33 NT-Pro-B Natriuret Pep 4674 pg/mL (0-450) H 08/11/23 04:33 Total Protein 7.0 g/dL (6.6-8.7) 08/11/23 04:33 Albumin 3.8 g/dL (3.5-5.2) 08/11/23 04:33 Globulin 3.2 g/dL (1.3-4.6) 08/11/23 04:33 All radiology interpretation(s) finalized by discharge Discharge Plan Discharge Patient Disposition: Home Clinical Impression: A-fib Qualifiers: Atrial fibrillation type: longstanding persistent Qualified Code(s): I48.11 - Longstanding persistent atrial fibrillation Congestive heart failure Qualifiers: Heart failure type: unspecified Heart failure chronicity: chronic Qualified Code(s): I50.9 - Heart failure, unspecified Condition: Stable Prescriptions: No Action losartan 50 mg tablet 50 mg PO QAM Qty: 30 0RF aspirin 81 mg Tablet,Delayed Release (Dr/Ec) 81 mg PO QAM Qty: 30 0RF potassium chloride 8 mEq tablet extended release 8 meq PO QAM Qty: 30 0RF vitamin E 268 mg (400 unit) Capsule 1 cap PO DAILY Eliquis 5 mg tablet 5 mg PO DAILY metoprolol succinate [Toprol XL] 50 mg tablet extended release 24 hr 50 mg PO BID Qty: 30 0RF furosemide [Lasix] 40 mg tablet 40 mg PO DAILY Qty: 30 0RF Discharge Orders: Discharge ED (Routine); Ordered 08/11/23 Ordered By: Wisam Mendez Patient Instructions: Heart Failure (ED), A-fib (Atrial Fibrillation) (ED), Opioid Safety, Pain Management Activity Restrictions/Additional Instructions: Take your medications as directed. Return for worsening pain, shortness of breath, fever, other concerning symptoms. Be sure to see your doctor this week. Coding Level of Care Code ED Broadcast Maintenance Technician for Victor M Hale
[2023-08-11] MEDS: metoprolol tartrate 1 mg/1 mL SDV 5 mL 5 MG IVP (04:30)
[2023-08-11] MEDS: FUROsemide 10 mg/mL SDV 10mL 60 MG IVP (04:31)
[2023-08-11 04:33] VITALS: BP 183/116; PULSE 92; RESP 22; O2SAT 93
[2023-08-11 04:39] LABS: Basophils % 0.4 %; Eosinophils # 0.1 10^3/uL (0.0-0.8); Eosinophils % 1.5 %; Hematocrit 41.1 % (37-53); Lymphocytes # 1.5 10^3/uL (0.8-4.8); Lymphocytes % 19.1 %; Mean Corpuscular HGB Conc 33.8 g/dL (30-55); Mean Corpuscular Hemoglobin 35.5 pg (27-33); Mean Corpuscular Volume 105.1 fl (82-101); Mean Platelet Volume 10.2 fL (7.4-10.4); Monocytes # 0.9 10^3/uL (0.2-0.9); Monocytes % 11.2 %; Neutrophils # 5.12 10^3/uL (1.8-7.7); Neutrophils % 67.5 %; Nucleated Red Blood Cells % 0 %; Platelet Count 201 10^3/cmm (157-399); Red Blood Count 3.91 10^6/uL (3.85-5.65); Red Cell Distribution Width 14.1 % (12.1-15.1); White Blood Count 7.58 10^3/uL (3.29-11.43)
[2023-08-11 04:49] LABS: INR 1.59 (0.8-1.2)
[2023-08-11 04:50] LABS: Partial Thromboplastin Time 29.6 SECONDS (23.9-36.7)
[2023-08-11 04:58] LABS: Troponin(5th) Baseline 14 ng/L (0-15)
[2023-08-11 05:08] LABS: Alanine Aminotransferase 11 U/L (0-41); Albumin Level 3.8 g/dL (3.5-5.2); Alkaline Phosphatase 76 U/L (40-130); Blood Urea Nitrogen 14 mg/dL (8-23); Calcium 8.8 mg/dL (8.5-10.5); Carbon Dioxide 20 mmol/L (22-29); Chloride 105 mmol/L (98-107); Creatinine Clr Calc Pharmacy 54.6758; Globulin 3.2 g/dL (1.3-4.6); Glucose 122 mg/dL (65-115); NT Pro B Type Natriuretic Pept 4674 pg/mL (0-450); Osmolality Calculated 286 mOsm/kg (285-295); Sodium 137 mmol/L (136-145); Total Bilirubin 1.5 mg/dL (0.15-1.2)
[2023-08-11 05:09] LABS: Anion Gap 16.3 (5-19); Aspartate Amino Transferase 24 U/L (0-40); Potassium 4.3 mmol/L (3.5-5.1)
[2023-08-11] MEDS: metoprolol tartrate 50 mg Tablet PO (05:18)
[2023-08-11 06:41] VITALS: BP 165/116; PULSE 90; RESP 29; O2SAT 96
== END 2023-08-11 07:25 | disposition home or self-care (01) ==
PROVIDERS: Emergency Provider Emergency Medicine
DX: I48.11 Longstanding persistent atrial fibrillation (principal); I11.0 Hypertensive heart disease with heart failure; I50.9 Heart failure, unspecified; Z79.82 Long term (current) use of aspirin; Z79.01 Long term (current) use of anticoagulants; E78.5 Hyperlipidemia, unspecified; I25.10 Atherosclerotic heart disease of native coronary artery without angina pectoris
CPT/HCPCS: 71045; 80053; 83880; 84484; 85025; 85610; 85730; 93005; 96374; 96375; 99285; J1940; J3490

== ENCOUNTER 2023-08-13 04:03 | Emergency (ER) | payer MEDICARE, MEDICAID, SELFPAY ==
[2023-08-13 04:05] VITALS: BP 193/105; PULSE 93; RESP 18; TEMP 36.5; O2SAT 97; BMI 30.4
--- NOTE | 2023-08-13 04:09 | ECG_ITS ---
[facility] Test Date: 2023-08-13 Pat Name: David Orozco Department: Room: Gender: Male Hospital Pharmacy Technician: : 1940 Requested By: Ally Stephen Order Number: [id number] Lopez MD: Maximino Berkowitz M.D. Measurements Intervals [place] Rate: 89 P: 0 [place]: 0 QRS: -1 QRSD: 90 T: 16 QT: 363 QTc: 442 Interpretive Statements ATRIAL FIBRILLATION Compared to ECG 08/11/2023 03:56:56 No significant changes Electronically Signed On 08-13-2023 18:15:33 CDT by Maximino Berkowitz M.D. [id number]
--- NOTE | 2023-08-13 04:09 | XRR_ITS ---
PROCEDURE INFORMATION: Exam: XR Chest Exam date and time: 08/13/2023 4:18 AM Age: 82 years old Clinical indication: Shortness of breath TECHNIQUE: Imaging protocol: Radiologic exam of the chest. Views: 1 view. COMPARISON: CR (CHEST, ) 08/11/2023 4:27 AM FINDINGS: Lungs: Redemonstrated pulmonary vascular congestion. Redemonstrated central lung and lower lobe predominant scarring/atelectasis. No focal consolidation. Pleural spaces: Unremarkable. No pleural effusion. No pneumothorax. Heart/Mediastinum: Mild cardiomegaly. Bones/joints: Degenerative change of the visualized osseous structures. Postsurgical change of the humeral head. XR/XR chest 1V portable [id number] IMPRESSION: Unchanged exam from 08/11/2023.
--- NOTE | 2023-08-13 04:15 | W.ED.SOB ---
HPI - SOB/Dyspnea General: Chief Complaint: Shortness of Breath/Dyspnea Stated Complaint: SOB Time Seen by Provider: 08/13/23 04:05 History of Present Illness: HPI Narrative: 82-year-old man with history of A-fib on Eliquis and metoprolol, hyperlipidemia and hypertension who presents to the emergency room with shortness of breath. He has been to the emergency room quite frequently for this recently. He was here couple days ago and states he went home but still did not feel better. He says this particular episodes been going on for about 4 to 5 days. He just says he does not feel like he is breathing right. Some mild chest discomfort at times. No diaphoresis. No nausea or vomiting. No abdominal pain. No altered mental status. No focal motor deficits. No lower extremity swelling. Review of Systems Narrative: Constitutional symptoms: Negative except as documented in HPI. Skin symptoms: Negative except as documented in HPI. Eye symptoms: Negative except as documented in HPI. ENMT symptoms: Negative except as documented in HPI. Respiratory symptoms: Negative except as documented in HPI. Cardiovascular symptoms: Negative except as documented in HPI. Gastrointestinal symptoms: Negative except as documented in HPI. Genitourinary symptoms: Negative except as documented in HPI. Musculoskeletal symptoms: Negative except as documented in HPI. Neurologic symptoms: Negative except as documented in HPI. Psychiatric symptoms: Negative except as documented in HPI. Endocrine symptoms: Negative except as documented in HPI. [facility] PFSH: Medical History Left ureteral calculus Renal mass Calculus of kidney with calculus of ureter History of atrial fibrillation Dyslipidemia (high LDL; low HDL) Chronic episodic atrial fibrillation Benign essential HTN Atherosclerotic heart disease of [place] coronary artery without angina pectoris Insomnia History of colon polyps Lumbar disc disease GERD (gastroesophageal reflux disease) Fibromyalgia Surgical History History of cardiac cath History of cholecystectomy History of shoulder surgery History of colonoscopy Family History Brother No problems noted. Father , at age 93 Dementia Parkinson disease Mother , at age 75 No problems noted. Denies family history of Diabetes CAD (coronary artery disease) Clotting disorder Chronic kidney disease (CKD) Suicide Anesthesia complication Bleeding disorder Lung disease Cancer Stroke Social History Smoking and tobacco/nicotine status: never used tobacco/nicotine Alcohol intake: current Alcohol intake frequency: holidays/special occasions only Substance/Drug Use: never Housing: House Marital status: / Current occupational status: retired Physical Exam Narrative: EXAM NARRATIVE: General: Alert, no acute distress. Skin: Warm, dry. Head: Normocephalic, atraumatic. Neck: Supple, trachea midline. Eye: Extraocular movements are intact. Ears, nose, mouth and throat: mucosa moist. Cardiovascular: Regular, Normal peripheral perfusion. Respiratory: Lungs are clear to auscultation, respirations are non-labored, breath sounds are equal, Symmetrical chest wall expansion. Gastrointestinal: Soft, Nontender, Non distended, Normal bowel sounds. Musculoskeletal: Normal ROM, no deformity. Neurological: Alert and oriented, No focal neurological deficit observed. Psychiatric: Cooperative, appropriate mood & affect. Course Vital Signs: Vital signs: Vital Signs Temperature 97.7 F 08/13/23 04:05 Pulse Rate 80 08/13/23 05:25 Respiratory Rate 19 H 08/13/23 05:25 Blood Pressure 160/113 08/13/23 05:25 Pulse Oximetry 97 08/13/23 05:25 Oxygen Delivery Me thod Room Air 08/13/23 05:25 MDM - SOB/Dyspnea Medical Decision Making Differential diagnosis for patient with shortness of breath includes but is not limited to and based on the above HPI, review of systems and physical exam: Pneumonia. Bronchitis. Asthma or COPD with acute exacerbation. Acute coronary syndrome / [place]. Pulmonary embolism. Anxiety. Congestive heart failure. Viral infections including influenza and Covid-19. Atrial fibrillation. Anxiety. Pleural effusion. Pneumothorax. Workup: Lab work, chest X-ray and EKG ordered to evaluate, rule in and rule out above pathologies Lab Review: Laboratory results were reviewed and interpreted by myself the emergency room physician. BUN and creatinine are 25 and 1.3 which is fairly stable for this patient. His proBNP is about his baseline. EKG: Time 4:09 AM rate 89. Atrial fibrillation with controlled rate, No ST-T changes, no ectopy, This was reviewed and interpreted by myself the ER physician At 4:11 AM Chest x-ray: Cardiomegaly, increased interstitial edema and some fluid in the fissures. Think this indicates some congestive heart failure. This was reviewed and interpreted by myself the ER physician. I reviewed the patient's medical record. Reexamination: Patient remained stable. Blood pressure has come down quite a bit. He has not required any oxygen. No altered mental status. No increased work of breathing. Assessment and plan: CHF Hypertension ? 80 mg IV Lasix in the emergency room. - Discharged home - Discussed plan with patient. Answered any questions. - Evaluation and treatment of this problem were appropriate in the emergency setting. Lab Data 08/13/23 04:20 08/13/23 04:50 Labs/Radiology: Radiology Impressions Chest X-Ray 08/13/23 04:09 IMPRESSION: Unchanged exam from 08/11/2023. Laboratory Results WBC 7.39 10^3/uL (3.29-11.43) 08/13/23 04:20 RBC 4.06 10^6/uL (3.85-5.65) 08/13/23 04:20 Hgb 14.60 g/dL (11.27-16.99) 08/13/23 04:20 Hct 42.4 % (37-53) 08/13/23 04:20 MCV 104.4 fl (82-101) H 08/13/23 04:20 MCH 36.0 pg (27-33) H 08/13/23 04:20 MCHC 34.4 g/dL (30-55) 08/13/23 04:20 RDW 14.3 % (12.1-15.1) 08/13/23 04:20 Plt Count 202 10^3/cmm (157-399) 08/13/23 04:20 MPV 10.6 fL (7.4-10.4) H 08/13/23 04:20 Neut % (Auto) 64.4 % 08/13/23 04:20 Lymph % (Auto) 23.1 % 08/13/23 04:20 Sargent % (Auto) 9.1 % 08/13/23 04:20 Eos % (Auto) 2.6 % 08/13/23 04:20 Baso % (Auto) 0.4 % 08/13/23 04:20 Neut # (Auto) 4.76 10^3/uL (1.8-7.7) 08/13/23 04:20 Lymph # (Auto) 1.7 10^3/uL (0.8-4.8) 08/13/23 04:20 Sargent # (Auto) 0.7 10^3/uL (0.2-0.9) 08/13/23 04:20 Eos # (Auto) 0.2 10^3/uL (0.0-0.8) 08/13/23 04:20 Baso # (Auto) 0.0 10^3/uL (0.0-0.1) 08/13/23 04:20 Nucleated RBC % (auto) 0 % 08/13/23 04:20 Nucleated RBCs # 0.0 /100WBC 08/13/23 04:20 Sodium 139 mmol/L (136-145) 08/13/23 04:50 Potassium 3.5 mmol/L (3.5-5.1) 08/13/23 04:50 Chloride 105 mmol/L (98-107) 08/13/23 04:50 Carbon Dioxide 22 mmol/L (22-29) 08/13/23 04:50 Anion Gap 15.5 (5-19) 08/13/23 04:50 BUN 25 mg/dL (8-23) H 08/13/23 04:50 Creatinine 1.3 mg/dL (0.7-1.2) H 08/13/23 04:50 GFR Calculation Not Reportable 08/13/23 04:50 Glucose 90 mg/dL (65-115) 08/13/23 04:50 Calculated Osmolality 292 mOsm/kg (285-295) 08/13/23 04:50 Calcium 8.2 mg/dL (8.5-10.5) L 08/13/23 04:50 Total Bilirubin 1.2 mg/dL (0.15-1.2) 08/13/23 04:50 AST 17 U/L (0-40) 08/13/23 04:50 ALT 9 U/L (0-41) 08/13/23 04:50 Alkaline Phosphatase 64 U/L (40-130) 08/13/23 04:50 Troponin T Baseline 13 ng/L (0-15) 08/13/23 04:50 NT-Pro-B Natriuret Pep 2462 pg/mL (0-450) H 08/13/23 04:50 Total Protein 6.1 g/dL (6.6-8.7) L 08/13/23 04:50 Albumin 3.4 g/dL (3.5-5.2) L 08/13/23 04:50 Globulin 2.7 g/dL (1.3-4.6) 08/13/23 04:50 All radiology interpretation(s) finalized by discharge Discharge Plan Discharge Patient Disposition: Home Clinical Impression: Congestive heart failure, Accelerated hypertension Condition: Stable Prescriptions: No Action losartan 50 mg tablet 50 mg PO QAM Qty: 30 0RF aspirin 81 mg Tablet,Delayed Release (Dr/Ec) 81 mg PO QAM Qty: 30 0RF potassium chloride 8 mEq tablet extended release 8 meq PO QAM Qty: 30 0RF vitamin E 268 mg (400 unit) Capsule 1 cap PO DAILY Eliquis 5 mg tablet 5 mg PO DAILY metoprolol succinate [Toprol XL] 50 mg tablet extended release 24 hr 50 mg PO BID Qty: 30 0RF furosemide [Lasix] 40 mg tablet 40 mg PO DAILY Qty: 30 0RF Discharge Orders: Discharge ED (Routine); Ordered 08/13/23 Ordered By: Ally David Discharge Diet: Usual diet Discharge Activity: Resume usual activity Patient Instructions: Heart Failure (ED) Activity Restrictions/Additional Instructions: Please increase your Lasix to 2 tablets daily for the next 3 days. For a total of 80 mg a day. Thank you for choosing [facility] for your healthcare needs today. Please realize this is an emergency room and that we are providing you with a medical screening exam and this may not be complete and all inclusive of all the testing and or work up that you may need to determine your ailment or severity of your illness. You have been screened and evaluated and felt safe for discharge. Health conditions do change or evolve sometimes and as such it is important that you follow up with your Primary Doctor to be re checked, 3-5 days is a general good time frame for follow up. You are always welcome to return to the ED for re assessment if your symptoms are worsening or you have new concerns Coding Level of Care Code ED Psychiatric Security Nurse for [facility]
[2023-08-13 04:26] LABS: Basophils % 0.4 %; Eosinophils # 0.2 10^3/uL (0.0-0.8); Eosinophils % 2.6 %; Hematocrit 42.4 % (37-53); Lymphocytes # 1.7 10^3/uL (0.8-4.8); Lymphocytes % 23.1 %; Mean Corpuscular HGB Conc 34.4 g/dL (30-55); Mean Corpuscular Volume 104.4 fl (82-101); Mean Platelet Volume 10.6 fL (7.4-10.4); Monocytes # 0.7 10^3/uL (0.2-0.9); Monocytes % 9.1 %; Neutrophils # 4.76 10^3/uL (1.8-7.7); Neutrophils % 64.4 %; Nucleated Red Blood Cells % 0 %; Platelet Count 202 10^3/cmm (157-399); Red Blood Count 4.06 10^6/uL (3.85-5.65); Red Cell Distribution Width 14.3 % (12.1-15.1); White Blood Count 7.39 10^3/uL (3.29-11.43)
[2023-08-13 05:20] LABS: Troponin(5th) Baseline 13 ng/L (0-15)
[2023-08-13 05:25] VITALS: BP 160/113; PULSE 80; RESP 19; O2SAT 97
[2023-08-13 05:29] LABS: Alanine Aminotransferase 9 U/L (0-41); Albumin Level 3.4 g/dL (3.5-5.2); Alkaline Phosphatase 64 U/L (40-130); Anion Gap 15.5 (5-19); Aspartate Amino Transferase 17 U/L (0-40); Blood Urea Nitrogen 25 mg/dL (8-23); Calcium 8.2 mg/dL (8.5-10.5); Carbon Dioxide 22 mmol/L (22-29); Chloride 105 mmol/L (98-107); Globulin 2.7 g/dL (1.3-4.6); Glucose 90 mg/dL (65-115); NT Pro B Type Natriuretic Pept 2462 pg/mL (0-450); Osmolality Calculated 292 mOsm/kg (285-295); Potassium 3.5 mmol/L (3.5-5.1); Sodium 139 mmol/L (136-145); Total Bilirubin 1.2 mg/dL (0.15-1.2); Total Protein 6.1 g/dL (6.6-8.7)
[2023-08-13 05:30] LABS: Creatinine Clr Calc Pharmacy 46.2641
[2023-08-13] MEDS: FUROsemide 10 mg/mL SDV 10mL 80 MG IVP (05:35)
[2023-08-13 05:57] VITALS: BP 161/105; PULSE 86; RESP 25; O2SAT 97
== END 2023-08-13 05:59 | disposition home or self-care (01) ==
PROVIDERS: Emergency Provider Emergency Medicine
DX: I11.0 Hypertensive heart disease with heart failure (principal); I50.9 Heart failure, unspecified; Z79.82 Long term (current) use of aspirin; Z79.01 Long term (current) use of anticoagulants; E78.5 Hyperlipidemia, unspecified; I25.10 Atherosclerotic heart disease of native coronary artery without angina pectoris
CPT/HCPCS: 71045; 80053; 83880; 84484; 85025; 93005; 96374; 99285; J1940

== ENCOUNTER 2023-08-22 03:43 | Emergency (ER) | payer MEDICARE, MEDICAID, SELFPAY ==
[2023-08-22] VITALS (8 sets, daily range): BP systolic 166–197; BP diastolic 99–120; PULSE 89–108; RESP 18–20; TEMP 36.5; O2SAT 94–97; BMI 28.1
--- NOTE | 2023-08-22 03:53 | ECG_ITS ---
[facility] Test Date: 2023-08-22 Pat Name: David Orozco Department: Room: Gender: Male Clinical Unit Coordinator: : 1940 Requested By: Remy Melgoza Order Number: [id number] Lopez MD: Kavon Cordoba M.D. Measurements Intervals [place] Rate: 104 P: 0 TN: 0 QRS: 2 QRSD: 86 T: 59 QT: 334 QTc: 440 Interpretive Statements ATRIAL FIBRILLATION WITH RAPID VENTRICULAR RESPONSE POSSIBLE ANTERIOR MYOCARDIAL INFARCTION , PROBABLY OLD [30 ms Q WAVE IN V3/V4, OR R < 0.2 mV IN V4] ABNORMAL RHYTHM ECG Compared to ECG 08/13/2023 04:09:07 Myocardial infarct finding now present Electronically Signed On 08-22-2023 19:01:20 CDT by Kavon Cordoba M.D. [email or web address]
--- NOTE | 2023-08-22 03:58 | ED_ITS ---
Documented by User: Remy Melgoza DO 08/22/23 04:01 HPI - SOB/Dyspnea 2 General: Chief Complaint: Shortness of Breath/Dyspnea Stated Complaint: headache sob slight chest pressure Time Seen by Provider: 08/22/23 03:50 History of Present Illness: HPI Narrative: Patient presents to the ER with complaints of shortness of breath and mild intermittent chest pain. This all started a couple hours ago. Patient is had this multiple times before been worked up multiple times. He has even been seen twice within the last 11 days for similar instances. Patient is denying chest pain currently and is oxygen saturation 96% on room air but his pulse is approximate 104 beats a minute in A-fib pattern blood pressure is 197/120. Patient is in no acute distress and is nontoxic. Review of Systems 2 General: Reports: 10 or more systems reviewed and unremarkable except in HPI and below PFSH ED 2 PFSH: Medical History Left ureteral calculus Renal mass Calculus of kidney with calculus of ureter History of atrial fibrillation Dyslipidemia (high LDL; low HDL) Chronic episodic atrial fibrillation Benign essential HTN Atherosclerotic heart disease of [place] coronary artery without angina pectoris Insomnia History of colon polyps Lumbar disc disease GERD (gastroesophageal reflux disease) Fibromyalgia Surgical History History of cardiac cath History of cholecystectomy History of shoulder surgery History of colonoscopy Family History Brother No problems noted. Father , at age 93 Dementia Parkinson disease Mother , at age 75 No problems noted. Denies family history of Diabetes CAD (coronary artery disease) Clotting disorder Chronic kidney disease (CKD) Suicide Anesthesia complication Bleeding disorder Lung disease Cancer Stroke Social History Smoking and tobacco/nicotine status: never used tobacco/nicotine Alcohol intake: current Alcohol intake frequency: holidays/special occasions only Substance/Drug Use: never Housing: House Marital status: / Current occupational status: retired Physical Exam 2 Const: COMMON NORMALS: no acute distress, average body habitus, patient oriented x3, no limitations, healthy appearing, alert and well nourished Neck/C-Spine: COMMON NORMALS: no JVD Chest: COMMONS NORMALS: normal inspection of the chest and normal palpation of entire chest wall Resp: COMMON NORMALS: normal respiratory effort, No retractions, No use of accessory muscles and clear to auscultation bilaterally AUSCULTATION: clear to auscultation bilaterally Cardio: COMMON NORMALS: no JVD, S1 normal heart sound present, S2 normal heart sound present, No gallops present (Cardio), No clicks present (Cardio), No murmurs present (Cardio) and No rub (Cardio); negative for regular rate (Tachycardic) and negative for regular rhythm (Irregularly irregular) RATE: abnormal rate (Tachycardic) RHYTHM: abnormal rhythm (Irregularly irregular) HEART SOUNDS: S1 normal heart sound present and S2 normal heart sound present GI: COMMON NORMALS: Normal to inspection, nondistended, normoactive bowel sounds present, Soft to palpation, non-tender, No hepatosplenomegaly present and no masses PALPATION: Yes Soft to palpation and Yes No hepatosplenomegaly present Extremity: OTHER: Negative edema bilateral lower extremities Neuro: COMMON NORMALS: patient oriented x3 SENSORIUM/ORIENTATION: Yes alert Course 2 Vital Signs: Vital signs: Vital Signs Temperature 97.7 F 08/22/23 03:48 Pulse Rate 89 08/22/23 07:39 Respiratory Rate 18 08/22/23 07:39 Blood Pressure 167/113 08/22/23 07:39 Pulse Oximetry 95 08/22/23 07:39 Oxygen Delivery Me thod Room Air 08/22/23 03:48 MDM - SOB/Dyspnea Medical Records I reviewed the patient's medical records. Lab Data I reviewed the patient's lab results. 08/22/23 04:08 08/22/23 04:08 Labs/Radiology: Laboratory Results WBC 6.08 10^3/uL (3.29-11.43) 08/22/23 04:08 RBC 3.73 10^6/uL (3.85-5.65) L 08/22/23 04:08 Hgb 13.10 g/dL (11.27-16.99) 08/22/23 04:08 Hct 39.4 % (37-53) 08/22/23 04:08 MCV 105.6 fl (82-101) H 08/22/23 04:08 MCH 35.1 pg (27-33) H 08/22/23 04:08 MCHC 33.2 g/dL (30-55) 08/22/23 04:08 RDW 13.8 % (12.1-15.1) 08/22/23 04:08 Plt Count 179 10^3/cmm (157-399) 08/22/23 04:08 MPV 10.4 fL (7.4-10.4) 08/22/23 04:08 Neut % (Auto) 59.5 % 08/22/23 04:08 Lymph % (Auto) 24.2 % 08/22/23 04:08 [place] % (Auto) 13.7 % 08/22/23 04:08 Eos % (Auto) 2.0 % 08/22/23 04:08 Baso % (Auto) 0.3 % 08/22/23 04:08 Neut # (Auto) 3.62 10^3/uL (1.8-7.7) 08/22/23 04:08 Lymph # (Auto) 1.5 10^3/uL (0.8-4.8) 08/22/23 04:08 [place] # (Auto) 0.8 10^3/uL (0.2-0.9) 08/22/23 04:08 Eos # (Auto) 0.1 10^3/uL (0.0-0.8) 08/22/23 04:08 Baso # (Auto) 0.0 10^3/uL (0.0-0.1) 08/22/23 04:08 Nucleated RBC % (auto) 0 % 08/22/23 04:08 Nucleated RBCs # 0.0 /100WBC 08/22/23 04:08 Sodium 138 mmol/L (136-145) 08/22/23 04:08 Potassium 4.0 mmol/L (3.5-5.1) 08/22/23 04:08 Chloride 104 mmol/L (98-107) 08/22/23 04:08 Carbon Dioxide 21 mmol/L (22-29) L 08/22/23 04:08 Anion Gap 17.0 (5-19) 08/22/23 04:08 BUN 13 mg/dL (8-23) 08/22/23 04:08 Creatinine 1.0 mg/dL (0.7-1.2) 08/22/23 04:08 GFR Calculation Not Reportable 08/22/23 04:08 Glucose 114 mg/dL (65-115) 08/22/23 04:08 Calculated Osmolality 287 mOsm/kg (285-295) 08/22/23 04:08 Calcium 8.7 mg/dL (8.5-10.5) 08/22/23 04:08 Total Bilirubin 1.2 mg/dL (0.15-1.2) 08/22/23 04:08 AST 17 U/L (0-40) 08/22/23 04:08 ALT 11 U/L (0-41) 08/22/23 04:08 Alkaline Phosphatase 76 U/L (40-130) 08/22/23 04:08 Troponin T Baseline 23 ng/L (0-15) H 08/22/23 04:08 Troponin T 120 Minute 22.11 ng/L (0-15) H 08/22/23 05:29 Delta Troponin T -0.89 ABS# (0-10) L 08/22/23 05:29 NT-Pro-B Natriuret Pep 2556 pg/mL (0-450) H 08/22/23 04:08 Total Protein 6.7 g/dL (6.6-8.7) 08/22/23 04:08 Albumin 3.7 g/dL (3.5-5.2) 08/22/23 04:08 Globulin 3.0 g/dL (1.3-4.6) 08/22/23 04:08 No radiology studies performed this visit EKG Data EKG 1: I personally reviewed and interpreted this EKG as follows: EKG Interpretation Date: 08/22/23 EKG interpretation time: 03:53 Prior EKG tracings: available for review Interpretation: Ventricular rate 104 bpm, QRS duration 86, QTc 394, A-fib with RVR Discharge Plan Discharge Patient Disposition: Home Clinical Impression: Noncompliance with medication regimen A-fib Qualifiers: Atrial fibrillation type: longstanding persistent Qualified Code(s): I48.11 - Longstanding persistent atrial fibrillation Congestive heart failure Qualifiers: Heart failure type: unspecified Heart failure chronicity: chronic Qualified Code(s): I50.9 - Heart failure, unspecified Condition: Stable Prescriptions: No Action losartan 50 mg tablet 50 mg PO QAM Qty: 30 0RF aspirin 81 mg Tablet,Delayed Release (Dr/Ec) 81 mg PO QAM Qty: 30 0RF potassium chloride 8 mEq tablet extended release 8 meq PO QAM Qty: 30 0RF vitamin E 268 mg (400 unit) Capsule 1 cap PO DAILY Eliquis 5 mg tablet 5 mg PO DAILY metoprolol succinate [Toprol XL] 50 mg tablet extended release 24 hr 50 mg PO BID Qty: 30 0RF furosemide [Lasix] 40 mg tablet 40 mg PO DAILY Qty: 30 0RF Discharge Orders: Discharge ED (Routine); Ordered 08/22/23 Ordered By: Glynn David Discharge Diet: Usual diet Discharge Activity: Resume usual activity Patient Instructions: Opioid Safety, Pain Management Activity Restrictions/Additional Instructions: Thank you for choosing [facility] for your healthcare needs today. It is very important that you follow up as instructed or that you return to the Emergency Department should you have concerns or if your condition changes or worsens in any way. You were seen in the emergency room today with complaints of chest discomfort shortness of breath. Your laboratory tests did not show signs of acute coronary syndrome. You continue to be in atrial fibrillation but there is no acute changes in your EKG or your cardiac enzymes. Continue to take your medications regularly as prescribed you were given your morning doses of Lasix losartan and metoprolol in the emergency room. You will still need to take your Eliquis when you get home. It is very important that you see the spanish translator in the office sometime within the next week you should call immediately when you get home to make an appointment. Sign Out Sign Out Data: Patient Sign Out occurred on 08/22/23 at 06:25. Patient's care was discussed, and care was transferred from Remy Melgoza DO to Glynn David DO. Coding Level of Care Code ED Production Planning Manager for [facility] Documented by User: Glynn David DO 08/22/23 07:49 HPI - SOB/Dyspnea 2 General: Chief Complaint: Shortness of Breath/Dyspnea Stated Complaint: headache sob slight chest pressure Time Seen by Provider: 08/22/23 03:50 PFSH ED 2 PFSH: Medical History Left ureteral calculus Renal mass Calculus of kidney with calculus of ureter History of atrial fibrillation Dyslipidemia (high LDL; low HDL) Chronic episodic atrial fibrillation Benign essential HTN Atherosclerotic heart disease of [place] coronary artery without angina pectoris Insomnia History of colon polyps Lumbar disc disease GERD (gastroesophageal reflux disease) Fibromyalgia Surgical History History of cardiac cath History of cholecystectomy History of shoulder surgery History of colonoscopy Family History Brother No problems noted. Father , at age 93 Dementia Parkinson disease Mother , at age 75 No problems noted. Denies family history of Diabetes CAD (coronary artery disease) Clotting disorder Chronic kidney disease (CKD) Suicide Anesthesia complication Bleeding disorder Lung disease Cancer Stroke Social History Smoking and tobacco/nicotine status: never used tobacco/nicotine Alcohol intake: current Alcohol intake frequency: holidays/special occasions only Substance/Drug Use: never Housing: House Marital status: / Current occupational status: retired Course 2 Vital Signs: Vital signs: Vital Signs Temperature 97.7 F 08/22/23 03:48 Pulse Rate 89 08/22/23 07:39 Respiratory Rate 18 08/22/23 07:39 Blood Pressure 167/113 08/22/23 07:39 Pulse Oximetry 95 08/22/23 07:39 Oxygen Delivery Me thod Room Air 08/22/23 03:48 MDM - SOB/Dyspnea Medical Decision Making Care assumed at change of shift patient asymptomatic at this time. Rate is well-controlled. We did give him his morning medications he had not taken that showed he was given a single IV dose of metoprolol. Given losartan metoprolol and Lasix. Discussed with patient importance of outpatient follow-up with cardiology clinic he has had 2 canceled visits in the last 2 months. He had multiple ER visits. Unfortunately he is still not follow-up with cardiology clinic stressed importance of these issues should be managed at the clinic by his spanish translator. Lab Data 08/22/23 04:08 08/22/23 04:08 Labs/Radiology: Laboratory Results WBC 6.08 10^3/uL (3.29-11.43) 08/22/23 04:08 RBC 3.73 10^6/uL (3.85-5.65) L 08/22/23 04:08 Hgb 13.10 g/dL (11.27-16.99) 08/22/23 04:08 Hct 39.4 % (37-53) 08/22/23 04:08 MCV 105.6 fl (82-101) H 08/22/23 04:08 MCH 35.1 pg (27-33) H 08/22/23 04:08 MCHC 33.2 g/dL (30-55) 08/22/23 04:08 RDW 13.8 % (12.1-15.1) 08/22/23 04:08 Plt Count 179 10^3/cmm (157-399) 08/22/23 04:08 MPV 10.4 fL (7.4-10.4) 08/22/23 04:08 Neut % (Auto) 59.5 % 08/22/23 04:08 Lymph % (Auto) 24.2 % 08/22/23 04:08 [place] % (Auto) 13.7 % 08/22/23 04:08 Eos % (Auto) 2.0 % 08/22/23 04:08 Baso % (Auto) 0.3 % 08/22/23 04:08 Neut # (Auto) 3.62 10^3/uL (1.8-7.7) 08/22/23 04:08 Lymph # (Auto) 1.5 10^3/uL (0.8-4.8) 08/22/23 04:08 [place] # (Auto) 0.8 10^3/uL (0.2-0.9) 08/22/23 04:08 Eos # (Auto) 0.1 10^3/uL (0.0-0.8) 08/22/23 04:08 Baso # (Auto) 0.0 10^3/uL (0.0-0.1) 08/22/23 04:08 Nucleated RBC % (auto) 0 % 08/22/23 04:08 Nucleated RBCs # 0.0 /100WBC 08/22/23 04:08 Sodium 138 mmol/L (136-145) 08/22/23 04:08 Potassium 4.0 mmol/L (3.5-5.1) 08/22/23 04:08 Chloride 104 mmol/L (98-107) 08/22/23 04:08 Carbon Dioxide 21 mmol/L (22-29) L 08/22/23 04:08 Anion Gap 17.0 (5-19) 08/22/23 04:08 BUN 13 mg/dL (8-23) 08/22/23 04:08 Creatinine 1.0 mg/dL (0.7-1.2) 08/22/23 04:08 GFR Calculation Not Reportable 08/22/23 04:08 Glucose 114 mg/dL (65-115) 08/22/23 04:08 Calculated Osmolality 287 mOsm/kg (285-295) 08/22/23 04:08 Calcium 8.7 mg/dL (8.5-10.5) 08/22/23 04:08 Total Bilirubin 1.2 mg/dL (0.15-1.2) 08/22/23 04:08 AST 17 U/L (0-40) 08/22/23 04:08 ALT 11 U/L (0-41) 08/22/23 04:08 Alkaline Phosphatase 76 U/L (40-130) 08/22/23 04:08 Troponin T Baseline 23 ng/L (0-15) H 08/22/23 04:08 Troponin T 120 Minute 22.11 ng/L (0-15) H 08/22/23 05:29 Delta Troponin T -0.89 ABS# (0-10) L 08/22/23 05:29 NT-Pro-B Natriuret Pep 2556 pg/mL (0-450) H 08/22/23 04:08 Total Protein 6.7 g/dL (6.6-8.7) 08/22/23 04:08 Albumin 3.7 g/dL (3.5-5.2) 08/22/23 04:08 Globulin 3.0 g/dL (1.3-4.6) 08/22/23 04:08 Discharge Plan Discharge Patient Disposition: Home Clinical Impression: Noncompliance with medication regimen A-fib Qualifiers: Atrial fibrillation type: longstanding persistent Qualified Code(s): I48.11 - Longstanding persistent atrial fibrillation Congestive heart failure Qualifiers: Heart failure type: unspecified Heart failure chronicity: chronic Qualified Code(s): I50.9 - Heart failure, unspecified Condition: Stable Prescriptions: No Action losartan 50 mg tablet 50 mg PO QAM Qty: 30 0RF aspirin 81 mg Tablet,Delayed Release (Dr/Ec) 81 mg PO QAM Qty: 30 0RF potassium chloride 8 mEq tablet extended release 8 meq PO QAM Qty: 30 0RF vitamin E 268 mg (400 unit) Capsule 1 cap PO DAILY Eliquis 5 mg tablet 5 mg PO DAILY metoprolol succinate [Toprol XL] 50 mg tablet extended release 24 hr 50 mg PO BID Qty: 30 0RF furosemide [Lasix] 40 mg tablet 40 mg PO DAILY Qty: 30 0RF Discharge Orders: Discharge ED (Routine); Ordered 08/22/23 Ordered By: Glynn David Discharge Diet: Usual diet Discharge Activity: Resume usual activity Patient Instructions: Opioid Safety, Pain Management Activity Restrictions/Additional Instructions: Thank you for choosing [facility] for your healthcare needs today. It is very important that you follow up as instructed or that you return to the Emergency Department should you have concerns or if your condition changes or worsens in any way. You were seen in the emergency room today with complaints of chest discomfort shortness of breath. Your laboratory tests did not show signs of acute coronary syndrome. You continue to be in atrial fibrillation but there is no acute changes in your EKG or your cardiac enzymes. Continue to take your medications regularly as prescribed you were given your morning doses of Lasix losartan and metoprolol in the emergency room. You will still need to take your Eliquis when you get home. It is very important that you see the spanish translator in the office sometime within the next week you should call immediately when you get home to make an appointment. Sign Out Sign Out Data: Patient Sign Out occurred on 08/22/23 at 06:25. Patient's care was discussed, and care was transferred from Remy Melgoza DO to Glynn David DO. Coding Level of Care Code ED Production Planning Manager for Victor M Hale
[2023-08-22] MEDS: metoprolol tartrate 1 mg/1 mL SDV 5 mL 5 MG IVP (04:00)
[2023-08-22 04:15] LABS: Basophils % 0.3 %; Eosinophils # 0.1 10^3/uL (0.0-0.8); Hematocrit 39.4 % (37-53); Lymphocytes # 1.5 10^3/uL (0.8-4.8); Lymphocytes % 24.2 %; Mean Corpuscular HGB Conc 33.2 g/dL (30-55); Mean Corpuscular Hemoglobin 35.1 pg (27-33); Mean Corpuscular Volume 105.6 fl (82-101); Mean Platelet Volume 10.4 fL (7.4-10.4); Monocytes # 0.8 10^3/uL (0.2-0.9); Monocytes % 13.7 %; Neutrophils # 3.62 10^3/uL (1.8-7.7); Neutrophils % 59.5 %; Nucleated Red Blood Cells % 0 %; Platelet Count 179 10^3/cmm (157-399); Red Blood Count 3.73 10^6/uL (3.85-5.65); Red Cell Distribution Width 13.8 % (12.1-15.1); White Blood Count 6.08 10^3/uL (3.29-11.43)
[2023-08-22 04:35] LABS: Troponin(5th) Baseline 23 ng/L (0-15)
[2023-08-22 04:42] LABS: Alanine Aminotransferase 11 U/L (0-41); Albumin Level 3.7 g/dL (3.5-5.2); Alkaline Phosphatase 76 U/L (40-130); Aspartate Amino Transferase 17 U/L (0-40); Blood Urea Nitrogen 13 mg/dL (8-23); Calcium 8.7 mg/dL (8.5-10.5); Carbon Dioxide 21 mmol/L (22-29); Chloride 104 mmol/L (98-107); Creatinine Clr Calc Pharmacy 58.0269; Glucose 114 mg/dL (65-115); NT Pro B Type Natriuretic Pept 2556 pg/mL (0-450); Osmolality Calculated 287 mOsm/kg (285-295); Sodium 138 mmol/L (136-145); Total Bilirubin 1.2 mg/dL (0.15-1.2); Total Protein 6.7 g/dL (6.6-8.7)
[2023-08-22 05:53] LABS: Troponin 5 2HR 22.11 ng/L (0-15)
[2023-08-22 06:13] LABS: Troponin 5 2HR Delta -0.89 ABS# (0-10)
--- NOTE | 2023-08-22 07:22 | ECG_ITS ---
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 Measurements Intervals [place] Rate: 90 P: 0 [place]: 0 QRS: 19 QRSD: 80 T: 53 QT: 368 QTc: 452 Interpretive Statements ATRIAL FIBRILLATION POSSIBLE ANTERIOR MYOCARDIAL INFARCTION , PROBABLY OLD [30 ms Q WAVE IN V3/V4, OR R < 0.2 mV IN V4] ABNORMAL RHYTHM ECG Compared to ECG 08/22/2023 03:53:26 No significant changes Electronically Signed On 08-22-2023 19:15:45 CDT by Kavon Cordoba M.D. [email or web address]
[2023-08-22] MEDS: FUROsemide 40 mg Tablet PO (07:38)
[2023-08-22] MEDS: metoprolol succinate ER (24 HR) 50 mg Tablet PO (07:38)
[2023-08-22] MEDS: losartan 50 mg Tablet PO (07:49)
== END 2023-08-22 07:51 | disposition home or self-care (01) ==
PROVIDERS: Emergency Medicine; Emergency Provider Family Medicine
DX: I48.11 Longstanding persistent atrial fibrillation (principal); I11.0 Hypertensive heart disease with heart failure; I50.9 Heart failure, unspecified; Z91.148 Patient's other noncompliance with medication regimen for other reason; Z79.82 Long term (current) use of aspirin; Z79.01 Long term (current) use of anticoagulants; E78.5 Hyperlipidemia, unspecified; I25.10 Atherosclerotic heart disease of native coronary artery without angina pectoris
CPT/HCPCS: 36415; 80053; 83880; 84484; 85025; 93005; 96374; 99285; J3490

== ENCOUNTER 2023-09-05 06:55 | Emergency (ER) | payer MEDICARE, MEDICAID, SELFPAY ==
[2023-09-05] VITALS (10 sets, daily range): BP systolic 147–200; BP diastolic 99–127; PULSE 96–113; RESP 13–27; TEMP 36.4; O2SAT 94–98; BMI 27.3
--- NOTE | 2023-09-05 06:59 | ECG_ITS ---
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 Measurements Intervals [place] Rate: 107 P: 0 [place]: 0 QRS: 16 QRSD: 91 T: 45 QT: 322 QTc: 431 Interpretive Statements ATRIAL FIBRILLATION WITH RAPID VENTRICULAR RESPONSE MODERATE ST DEPRESSION [0.05+ mV ST DEPRESSION] Compared to ECG 08/22/2023 07:22:08 ST (T wave) deviation now present Myocardial infarct finding no longer present Electronically Signed On 09-05-2023 20:38:59 CDT by Kavon Cordoba M.D. [id number]
--- NOTE | 2023-09-05 07:10 | XR_ITS ---
WS: [id number] Exam: XR chest 1V portable [id number] Date/Time of Exam: 09/05/2023 7:12 AM Reason For Exam: dyspnea/cough Comparison 08/13/2023. Mild cardiac enlargement with slightly increased pulmonary vascularity. No consolidating infiltrates. No pleural effusions or pneumothorax. The mediastinum is normal in contour. Moderately advanced DJD of both shoulders. XR/XR chest 1V portable [id number] IMPRESSION: 1. Mild cardiac enlargement with slightly increased pulmonary vascularity. No a cute process noted.
--- NOTE | 2023-09-05 07:16 | ED_ITS ---
HPI - SOB/Dyspnea 2 General: Chief Complaint: Shortness of Breath/Dyspnea Stated Complaint: SOB Time Seen by Provider: 09/05/23 07:04 Source: patient Mode of arrival: ambulatory History of Present Illness: HPI Narrative: 82-year-old male presents emergency room complaining of shortness of breath and rapid heart rate. Patient is well-known to the emergency room he comes in frequently usually in the morning with similar complaint. He readily admits that he has not been taking the medication even nighttime or morning medications. He has not had any chest pain or discomfort he has noticed this morning with any activity his heart rate increases and he gets more short of breath. MD elicited complaint: shortness of breath Pertinent past history: other (Atrial fibrillation) Associated symptoms: Deny abdominal pain, chest pain or fever(s) Review of Systems 2 Const: Denies: fever(s) or chills Card: Denies: chest pain Resp: Denies: dyspnea GI: Denies: abdominal pain : Denies: dysuria, urinary frequency or urinary urgency Musc: Denies: neck pain or back pain Skin/Breast: Denies: rash PFSH ED 2 PFSH: Medical History Left ureteral calculus Renal mass Calculus of kidney with calculus of ureter History of atrial fibrillation Dyslipidemia (high LDL; low HDL) Chronic episodic atrial fibrillation Benign essential HTN Atherosclerotic heart disease of [place] coronary artery without angina pectoris Insomnia History of colon polyps Lumbar disc disease GERD (gastroesophageal reflux disease) Fibromyalgia Surgical History History of cardiac cath History of cholecystectomy History of shoulder surgery History of colonoscopy Family History Brother No problems noted. Father , at age 93 Dementia Parkinson disease Mother , at age 75 No problems noted. Denies family history of Diabetes CAD (coronary artery disease) Clotting disorder Chronic kidney disease (CKD) Suicide Anesthesia complication Bleeding disorder Lung disease Cancer Stroke Social History Smoking and tobacco/nicotine status: never used tobacco/nicotine Alcohol intake: current Alcohol intake frequency: holidays/special occasions only Substance/Drug Use: never Housing: House Marital status: / Current occupational status: retired Physical Exam 2 Const: GENERAL APPEARANCE: cooperative and comfortable O RIENTATION/CONSCIOUSNESS: Yes awake, Yes oriented to person, Yes oriented to place and Yes oriented to time HENMT: COMMON NORMALS: normocephalic, atraumatic and hearing grossly normal bilaterally HEAD & SCALP: normocephalic and atraumatic Resp: COMMON NORMALS: normal respiratory effort, No retractions, No use of accessory muscles and clear to auscultation bilaterally AUSCULTATION: clear to auscultation bilaterally Cardio: COMMON NORMALS: No murmurs present (Cardio) RATE: tachycardic R HYTHM: abnormal rhythm irregularly irregular GI: COMMON NORMALS: Soft to palpation and No hepatosplenomegaly present A USCULTATION: Yes normoactive bowel sounds PALPATION: Yes Soft to palpation, No Tenderness to palpation present (GI), No Guarding due to palpation present (GI) and Yes No hepatosplenomegaly present Extremity: COMMON NORMALS: normal to inspection, capillary refill normal, no clubbing, cyanosis or edema, no calf tenderness and no pedal edema Neuro: SENSORIUM/ORIENTATION: Yes oriented to person, Yes oriented to place and Yes oriented to time Skin: COMMON NORMALS: no rashes or lesions noted GENERAL SKIN EXAM: no rashes or lesions noted Course 2 Vital Signs: Vital signs: Vital Signs Temperature 97.6 F 09/05/23 07:03 Pulse Rate 106 H 09/05/23 10:20 Respiratory Rate 17 09/05/23 10:20 Blood Pressure 170/107 09/05/23 10:20 Pulse Oximetry 95 09/05/23 10:20 Oxygen Delivery Me thod Room Air 09/05/23 07:03 MDM - SOB/Dyspnea Medical Decision Making Rate controlled after his given his regular morning medications. He is feeling better he is not having any orthopnea his oxygen sats are maintaining normally. He has had some urine output. Clinic visit is all largely driven once again by noncompliance with his medication regiment. Will discharge the patient home and set him up to get her home health referral. Discussed with family importance of regular taking his medications were hoping that home health can help him organize his system for his medications. Advised family if they are not able to get home health that they should buy medication demand planner and fill it and monitor it regularly to make sure he takes it appropriately. Additionally we have asked case management to make a follow-up appointment with cardiology he still has not been back to the cardiology clinic throughout these multiple ER visits. Stressed him the importance of that the clinic should be managing his long-term health issues and medications. Medical Records I reviewed the patient's medical records. Lab Data I reviewed the patient's lab results. 09/05/23 07:33 09/05/23 07:33 Labs/Radiology: Radiology Impressions Chest X-Ray 09/05/23 07:10 IMPRESSION: 1. Mild cardiac enlargement with slightly increased pulmonary vascularity. No acute process noted. Laboratory Results WBC 7.86 10^3/uL (3.29-11.43) 09/05/23 07:33 RBC 3.98 10^6/uL (3.85-5.65) 09/05/23 07:33 Hgb 14.40 g/dL (11.27-16.99) 09/05/23 07:33 Hct 41.8 % (37-53) 09/05/23 07:33 MCV 105.0 fl (82-101) H 09/05/23 07:33 MCH 36.2 pg (27-33) H 09/05/23 07:33 MCHC 34.4 g/dL (30-55) 09/05/23 07:33 RDW 13.5 % (12.1-15.1) 09/05/23 07:33 Plt Count 199 10^3/cmm (157-399) 09/05/23 07:33 MPV 9.8 fL (7.4-10.4) 09/05/23 07:33 Neut % (Auto) 70.7 % 09/05/23 07:33 Lymph % (Auto) 17.4 % 09/05/23 07:33 [place] % (Auto) 9.3 % 09/05/23 07:33 Eos % (Auto) 1.8 % 09/05/23 07:33 Baso % (Auto) 0.3 % 09/05/23 07:33 Neut # (Auto) 5.56 10^3/uL (1.8-7.7) 09/05/23 07:33 Lymph # (Auto) 1.4 10^3/uL (0.8-4.8) 09/05/23 07:33 [place] # (Auto) 0.7 10^3/uL (0.2-0.9) 09/05/23 07:33 Eos # (Auto) 0.1 10^3/uL (0.0-0.8) 09/05/23 07:33 Baso # (Auto) 0.0 10^3/uL (0.0-0.1) 09/05/23 07:33 Nucleated RBC % (auto) 0 % 09/05/23 07:33 Nucleated RBCs # 0.0 /100WBC 09/05/23 07:33 Sodium 138 mmol/L (136-145) 09/05/23 07:33 Potassium 3.8 mmol/L (3.5-5.1) 09/05/23 07:33 Chloride 104 mmol/L (98-107) 09/05/23 07:33 Carbon Dioxide 21 mmol/L (22-29) L 09/05/23 07:33 Anion Gap 16.8 (5-19) 09/05/23 07:33 BUN 13 mg/dL (8-23) 09/05/23 07:33 Creatinine 1.2 mg/dL (0.7-1.2) 09/05/23 07:33 GFR Calculation Not Reportable 09/05/23 07:33 Glucose 94 mg/dL (65-115) 09/05/23 07:33 Calculated Osmolality 286 mOsm/kg (285-295) 09/05/23 07:33 Calcium 8.7 mg/dL (8.5-10.5) 09/05/23 07:33 Total Bilirubin 1.8 mg/dL (0.15-1.2) H 09/05/23 07:33 AST 17 U/L (0-40) 09/05/23 07:33 ALT 9 U/L (0-41) 09/05/23 07:33 Alkaline Phosphatase 84 U/L (40-130) 09/05/23 07:33 NT-Pro-B Natriuret Pep 2079 pg/mL (0-450) H 09/05/23 07:33 Total Protein 7.5 g/dL (6.6-8.7) 09/05/23 07:33 Albumin 3.8 g/dL (3.5-5.2) 09/05/23 07:33 Globulin 3.7 g/dL (1.3-4.6) 09/05/23 07:33 All radiology interpretation(s) finalized by discharge Discharge Plan Discharge Patient Disposition: Home Clinical Impression: CHF (congestive heart failure) A-fib Qualifiers: Atrial fibrillation type: longstanding persistent Qualified Code(s): I48.11 - Longstanding persistent atrial fibrillation Condition: Stable Prescriptions: No Action losartan 50 mg tablet 50 mg PO QAM Qty: 30 0RF aspirin 81 mg Tablet,Delayed Release (Dr/Ec) 81 mg PO QAM Qty: 30 0RF potassium chloride 8 mEq tablet extended release 8 meq PO QAM Qty: 30 0RF vitamin E 268 mg (400 unit) Capsule 1 cap PO DAILY Eliquis 5 mg tablet 5 mg PO DAILY metoprolol succinate [Toprol XL] 50 mg tablet extended release 24 hr 50 mg PO BID Qty: 30 0RF furosemide [Lasix] 40 mg tablet 40 mg PO DAILY Qty: 30 0RF Discharge Orders: Discharge ED (Routine); Ordered 09/05/23 Ordered By: Glynn David Discharge Diet: Usual diet Discharge Activity: Limit activity as instructed Patient Instructions: Opioid Safety, Pain Management Activity Restrictions/Additional Instructions: Thank you for choosing [facility] for your healthcare needs today. It is very important that you follow up as instructed or that you return to the Emergency Department should you have concerns or if your condition changes or worsens in any way. You were seen today for complaints of shortness of breath. Your symptoms are due to your atrial fibrillation. It is very important to take your medications regularly. You were given your regular morning medications in the emergency room as well as a dose of Lasix. We have referred you to home health care to assist with medication management. Were also having case management make arrangements for you to have a follow-up appointment with cardiology this is very important for long-term management of your chronic medical problems. Coding Level of Care Code ED Barn And Property Manager for Victor M Hale
[2023-09-05 07:52] LABS: Basophils % 0.3 %; Eosinophils # 0.1 10^3/uL (0.0-0.8); Eosinophils % 1.8 %; Hematocrit 41.8 % (37-53); Lymphocytes # 1.4 10^3/uL (0.8-4.8); Lymphocytes % 17.4 %; Mean Corpuscular HGB Conc 34.4 g/dL (30-55); Mean Corpuscular Hemoglobin 36.2 pg (27-33); Mean Platelet Volume 9.8 fL (7.4-10.4); Monocytes # 0.7 10^3/uL (0.2-0.9); Monocytes % 9.3 %; Neutrophils # 5.56 10^3/uL (1.8-7.7); Neutrophils % 70.7 %; Nucleated Red Blood Cells % 0 %; Platelet Count 199 10^3/cmm (157-399); Red Blood Count 3.98 10^6/uL (3.85-5.65); Red Cell Distribution Width 13.5 % (12.1-15.1); White Blood Count 7.86 10^3/uL (3.29-11.43)
[2023-09-05] MEDS: metoprolol succinate ER (24 HR) 50 mg Tablet PO (08:02)
[2023-09-05] MEDS: losartan 50 mg Tablet PO (08:02)
[2023-09-05 08:21] LABS: Alanine Aminotransferase 9 U/L (0-41); Albumin Level 3.8 g/dL (3.5-5.2); Alkaline Phosphatase 84 U/L (40-130); Anion Gap 16.8 (5-19); Aspartate Amino Transferase 17 U/L (0-40); Blood Urea Nitrogen 13 mg/dL (8-23); Calcium 8.7 mg/dL (8.5-10.5); Carbon Dioxide 21 mmol/L (22-29); Chloride 104 mmol/L (98-107); Creatinine Clr Calc Pharmacy 47.7677; Globulin 3.7 g/dL (1.3-4.6); Glucose 94 mg/dL (65-115); NT Pro B Type Natriuretic Pept 2079 pg/mL (0-450); Osmolality Calculated 286 mOsm/kg (285-295); Potassium 3.8 mmol/L (3.5-5.1); Sodium 138 mmol/L (136-145); Total Bilirubin 1.8 mg/dL (0.15-1.2); Total Protein 7.5 g/dL (6.6-8.7)
[2023-09-05] MEDS: FUROsemide 10 mg/mL SDV 4mL 40 MG IVP (08:34)
[2023-09-05] MEDS: metoprolol tartrate 1 mg/1 mL SDV 5 mL 2.5 MG IVP (08:34)
--- NOTE | 2023-09-05 13:46 | DCPLANNER ---
message cardiology for er f/u
== END 2023-09-05 10:22 | disposition home or self-care (01) ==
PROVIDERS: Emergency Provider Family Medicine
DX: I11.0 Hypertensive heart disease with heart failure (principal); I50.9 Heart failure, unspecified; I48.11 Longstanding persistent atrial fibrillation; Z79.82 Long term (current) use of aspirin; Z79.01 Long term (current) use of anticoagulants; E78.5 Hyperlipidemia, unspecified; I25.10 Atherosclerotic heart disease of native coronary artery without angina pectoris
CPT/HCPCS: 36415; 71045; 80053; 83880; 85025; 93005; 96374; 96375; 99285; J1940; J3490

== ENCOUNTER 2023-09-11 02:58 | Emergency (ER) | payer MEDICARE, MEDICAID, SELFPAY ==
[2023-09-11 03:04] VITALS: BP 180/121; PULSE 105; RESP 18; TEMP 36.5; O2SAT 92; BMI 30.4
--- NOTE | 2023-09-11 03:05 | ECG_ITS ---
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 Measurements Intervals [place] Rate: 106 P: 0 NV: 0 QRS: 23 QRSD: 83 T: 58 QT: 334 QTc: 445 Interpretive Statements ATRIAL FIBRILLATION WITH RAPID VENTRICULAR RESPONSE SEPTAL MYOCARDIAL INFARCTION , OF INDETERMINATE AGE [40+ ms Q WAVE IN V1/V2] Compared to ECG 09/05/2023 06:59:53 Myocardial infarct finding now present ST (T wave) deviation no longer present Electronically Signed On 09-11-2023 10:59:48 CDT by Maximino Berkowitz M.D. [id number]
--- NOTE | 2023-09-11 03:12 | ED_ITS ---
HPI - Chest Pain 2 General: Chief Complaint: Chest Pain Stated Complaint: Chest pains Time Seen by Provider: 09/11/23 03:04 History of Present Illness: Patient comes in complaining of chest pain fast heart rate and shortness of breath all starting this morning. Patient's been seen multiple times for this. Patient states this is normal thing with no difference. Patient's heart rate is 105 beats a minute blood pressure 180/121 and O2 sat 92% on room air. Patient is nonacute and nontoxic in appearance. Patient is currently on Eliquis and metoprolol XL 50 mg twice daily Review of Systems 2 General: Reports: 10 or more systems reviewed and unremarkable except in HPI and below PFSH ED 2 PFSH: Medical History Left ureteral calculus Renal mass Calculus of kidney with calculus of ureter History of atrial fibrillation Dyslipidemia (high LDL; low HDL) Chronic episodic atrial fibrillation Benign essential HTN Atherosclerotic heart disease of [place] coronary artery without angina pectoris Insomnia History of colon polyps Lumbar disc disease GERD (gastroesophageal reflux disease) Fibromyalgia Surgical History History of cardiac cath History of cholecystectomy History of shoulder surgery History of colonoscopy Family History Brother No problems noted. Father , at age 93 Dementia Parkinson disease Mother , at age 75 No problems noted. Denies family history of Diabetes CAD (coronary artery disease) Clotting disorder Chronic kidney disease (CKD) Suicide Anesthesia complication Bleeding disorder Lung disease Cancer Stroke Social History Smoking and tobacco/nicotine status: never used tobacco/nicotine Alcohol intake: current Alcohol intake frequency: holidays/special occasions only Substance/Drug Use: never Housing: House Marital status: / Current occupational status: retired Physical Exam 2 Const: COMMON NORMALS: no acute distress, average body habitus, patient oriented x3, no limitations, healthy appearing, alert and well nourished HENMT: COMMON NORMALS: normocephalic, atraumatic, hearing grossly normal bilaterally, external ears normal, Normal external nose present and moist oral mucous membranes HEAD & SCALP: normocephalic and atraumatic NOSE: Normal external nose present EXTERNAL EAR: Yes external ears normal Neck/C-Spine: COMMON NORMALS: no JVD Chest: COMMONS NORMALS: normal inspection of the chest and normal palpation of entire chest wall Resp: COMMON NORMALS: normal respiratory effort, No retractions, No use of accessory muscles and clear to auscultation bilaterally AUSCULTATION: clear to auscultation bilaterally Cardio: COMMON NORMALS: no JVD, regular rate, S1 normal heart sound present, S2 normal heart sound present, No gallops present (Cardio), No clicks present (Cardio), No murmurs present (Cardio) and No rub (Cardio); negative for regular rhythm (Irregularly irregular rhythm) RATE: regular rate RHYTHM: abnormal rhythm (Irregularly irregular rhythm) HEART SOUNDS: S1 normal heart sound present and S2 normal heart sound present GI: COMMON NORMALS: Normal to inspection, nondistended, normoactive bowel sounds present, Soft to palpation, non-tender, No hepatosplenomegaly present and no masses PALPATION: Yes Soft to palpation and Yes No hepatosplenomegaly present Neuro: COMMON NORMALS: patient oriented x3 SENSORIUM/ORIENTATION: Yes alert Course 2 Vital Signs: Vital signs: Vital Signs Temperature 97.7 F 09/11/23 03:04 Pulse Rate 89 09/11/23 05:12 Respiratory Rate 16 09/11/23 05:12 Blood Pressure 166/116 09/11/23 05:12 Pulse Oximetry 96 09/11/23 05:12 Oxygen Delivery Me thod Room Air 09/11/23 03:04 MDM - Chest Pain Medical Decision Making Patient is worked up in a standard chest pain fashion with serial EKGs, and lab work, no chest x-ray was obtained this time because patient has had multiple ones done. Patient was given 2 doses of metoprolol 5 mg each IV this decreases heart rate from 105 to about 89. Decrease his blood pressure from 180/121 to 166/116. Patient said he is feeling much better. Upon talking him about his medicine patient states he only takes his metoprolol once a day. This was instructed him to take it twice a day. Differential Diagnosis Unlikely acute massive pulmonary embolism, acute respiratory failure, acute myocardial infarction, cardiac arrest or sudden cardiac Medical Records I reviewed the patient's medical records. Lab Data I reviewed the patient's lab results. 09/11/23 03:11 09/11/23 03:27 Laboratory Results WBC 5.71 10^3/uL (3.29-11.43) 09/11/23 03:11 RBC 4.00 10^6/uL (3.85-5.65) 09/11/23 03:11 Hgb 14.50 g/dL (11.27-16.99) 09/11/23 03:11 Hct 43.0 % (37-53) 09/11/23 03:11 MCV 107.5 fl (82-101) H 09/11/23 03:11 MCH 36.3 pg (27-33) H 09/11/23 03:11 MCHC 33.7 g/dL (30-55) 09/11/23 03:11 RDW 13.9 % (12.1-15.1) 09/11/23 03:11 Plt Count 241 10^3/cmm (157-399) 09/11/23 03:11 MPV 10.6 fL (7.4-10.4) H 09/11/23 03:11 Neut % (Auto) 58.4 % 09/11/23 03:11 Lymph % (Auto) 29.4 % 09/11/23 03:11 [place] % (Auto) 8.8 % 09/11/23 03:11 Eos % (Auto) 2.6 % 09/11/23 03:11 Baso % (Auto) 0.4 % 09/11/23 03:11 Neut # (Auto) 3.34 10^3/uL (1.8-7.7) 09/11/23 03:11 Lymph # (Auto) 1.7 10^3/uL (0.8-4.8) 09/11/23 03:11 [place] # (Auto) 0.5 10^3/uL (0.2-0.9) 09/11/23 03:11 Eos # (Auto) 0.2 10^3/uL (0.0-0.8) 09/11/23 03:11 Baso # (Auto) 0.0 10^3/uL (0.0-0.1) 09/11/23 03:11 Nucleated RBC % (auto) 0 % 09/11/23 03:11 Nucleated RBCs # 0.0 /100WBC 09/11/23 03:11 Sodium 141 mmol/L (136-145) 09/11/23 03:27 Potassium 4.3 mmol/L (3.5-5.1) 09/11/23 03:27 Chloride 104 mmol/L (98-107) 09/11/23 03:27 Carbon Dioxide 24 mmol/L (22-29) 09/11/23 03:27 Anion Gap 17.3 (5-19) 09/11/23 03:27 BUN 18 mg/dL (8-23) 09/11/23 03:27 Creatinine 1.3 mg/dL (0.7-1.2) H 09/11/23 03:27 GFR Calculation Not Reportable 09/11/23 03:27 Glucose 110 mg/dL (65-115) 09/11/23 03:27 Calculated Osmolality 295 mOsm/kg (285-295) 09/11/23 03:27 Calcium 9.1 mg/dL (8.5-10.5) 09/11/23 03:27 Total Bilirubin 1.3 mg/dL (0.15-1.2) H 09/11/23 03:27 AST 20 U/L (0-40) 09/11/23 03:27 ALT 10 U/L (0-41) 09/11/23 03:27 Alkaline Phosphatase 89 U/L (40-130) 09/11/23 03:27 Troponin T Baseline 26 ng/L (0-15) H 09/11/23 03:27 Troponin T 120 Minute 21.87 ng/L (0-15) H 09/11/23 05:13 Delta Troponin T -4.13 ABS# (0-10) L 09/11/23 05:13 Total Protein 7.7 g/dL (6.6-8.7) 09/11/23 03:27 Albumin 4.2 g/dL (3.5-5.2) 09/11/23 03:27 Globulin 3.5 g/dL (1.3-4.6) 09/11/23 03:27 No radiology studies performed this visit Discharge Plan Discharge Patient Disposition: Home Clinical Impression: Atypical chest pain, History of atrial fibrillation Hypertension Qualifiers: Hypertension type: unspecified Qualified Code(s): I10 - Essential (primary) hypertension Condition: Stable Prescriptions: No Action losartan 50 mg tablet 50 mg PO QAM Qty: 30 0RF aspirin 81 mg Tablet,Delayed Release (Dr/Ec) 81 mg PO QAM Qty: 30 0RF potassium chloride 8 mEq tablet extended release 8 meq PO QAM Qty: 30 0RF vitamin E 268 mg (400 unit) Capsule 1 cap PO DAILY Eliquis 5 mg tablet 5 mg PO DAILY metoprolol succinate [Toprol XL] 50 mg tablet extended release 24 hr 50 mg PO BID Qty: 30 0RF furosemide [Lasix] 40 mg tablet 40 mg PO DAILY Qty: 30 0RF Discharge Orders: Discharge ED (Routine); Ordered 09/11/23 Ordered By: Remy Melgoza Patient Instructions: Chest Pain (ED) Activity Restrictions/Additional Instructions: Please go home and take your blood pressure medicine as directed. This may be metoprolol XL 50 mg 1 pill twice a day, losartan 50 mg 1 pill in the morning, Lasix 40 mg 1 pill daily, and Eliquis 5 mg daily. Please keep a blood pressure log and follow-up with your family practice physician and/or typecasting machine operator for the next 7 days for further evaluation and treatment. Coding Level of Care Code ED Acoustic Engineer for Victor M Hale
[2023-09-11 03:17] LABS: Basophils % 0.4 %; Eosinophils # 0.2 10^3/uL (0.0-0.8); Eosinophils % 2.6 %; Lymphocytes # 1.7 10^3/uL (0.8-4.8); Lymphocytes % 29.4 %; Mean Corpuscular HGB Conc 33.7 g/dL (30-55); Mean Corpuscular Hemoglobin 36.3 pg (27-33); Mean Corpuscular Volume 107.5 fl (82-101); Mean Platelet Volume 10.6 fL (7.4-10.4); Monocytes # 0.5 10^3/uL (0.2-0.9); Monocytes % 8.8 %; Neutrophils # 3.34 10^3/uL (1.8-7.7); Neutrophils % 58.4 %; Nucleated Red Blood Cells % 0 %; Platelet Count 241 10^3/cmm (157-399); Red Cell Distribution Width 13.9 % (12.1-15.1); White Blood Count 5.71 10^3/uL (3.29-11.43)
[2023-09-11] MEDS: metoprolol tartrate 1 mg/1 mL SDV 5 mL 5 MG IVP ×2 (03:18→04:27)
[2023-09-11 03:29] VITALS: BP 177/125; PULSE 92; RESP 16; O2SAT 97
[2023-09-11 03:49] LABS: Troponin(5th) Baseline 26 ng/L (0-15)
[2023-09-11 03:52] LABS: Alanine Aminotransferase 10 U/L (0-41); Albumin Level 4.2 g/dL (3.5-5.2); Alkaline Phosphatase 89 U/L (40-130); Anion Gap 17.3 (5-19); Aspartate Amino Transferase 20 U/L (0-40); Blood Urea Nitrogen 18 mg/dL (8-23); Calcium 9.1 mg/dL (8.5-10.5); Carbon Dioxide 24 mmol/L (22-29); Chloride 104 mmol/L (98-107); Creatinine Clr Calc Pharmacy 46.2641; Globulin 3.5 g/dL (1.3-4.6); Glucose 110 mg/dL (65-115); Osmolality Calculated 295 mOsm/kg (285-295); Potassium 4.3 mmol/L (3.5-5.1); Sodium 141 mmol/L (136-145); Total Bilirubin 1.3 mg/dL (0.15-1.2); Total Protein 7.7 g/dL (6.6-8.7)
[2023-09-11 04:30] VITALS: BP 165/108; PULSE 96; RESP 18; O2SAT 94
[2023-09-11 05:12] VITALS: BP 166/116; PULSE 89; RESP 16; O2SAT 96
[2023-09-11 05:42] LABS: Troponin 5 2HR 21.87 ng/L (0-15)
[2023-09-11 05:46] LABS: Troponin 5 2HR Delta -4.13 ABS# (0-10)
[2023-09-11 06:06] VITALS: BP 166/116; PULSE 89; RESP 16; TEMP 36.5; O2SAT 96
== END 2023-09-11 06:07 | disposition home or self-care (01) ==
PROVIDERS: Emergency Provider Emergency Medicine
DX: R07.89 Other chest pain (principal); I10 Essential (primary) hypertension; Z79.82 Long term (current) use of aspirin; Z79.01 Long term (current) use of anticoagulants; E78.5 Hyperlipidemia, unspecified; I25.10 Atherosclerotic heart disease of native coronary artery without angina pectoris
CPT/HCPCS: 80053; 84484; 85025; 93005; 96374; 96376; 99284; J3490

== ENCOUNTER 2023-09-13 03:04 | Emergency (ER) | payer MEDICARE, MEDICAID, SELFPAY ==
[2023-09-13 03:09] VITALS: BP 184/128; PULSE 121; RESP 24; TEMP 36.6; O2SAT 97; BMI 30.4
--- NOTE | 2023-09-13 03:13 | ECG_ITS ---
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 Measurements Intervals [place] Rate: 109 P: 0 MT: 0 QRS: 15 QRSD: 85 T: 64 QT: 338 QTc: 456 Interpretive Statements ATRIAL FIBRILLATION WITH RAPID VENTRICULAR RESPONSE POSSIBLE ANTERIOR MYOCARDIAL INFARCTION , PROBABLY OLD [30 ms Q WAVE IN V3/V4, OR R < 0.2 mV IN V4] Compared to ECG 09/11/2023 02:57:16 No significant changes Electronically Signed On 09-14-2023 19:22:24 CDT by Maximino Berkowitz M.D. [id number]
[2023-09-13] MEDS: metoprolol tartrate 1 mg/1 mL SDV 5 mL 5 MG IVP (03:25)
[2023-09-13 03:32] LABS: Basophils % 0.3 %; Eosinophils # 0.1 10^3/uL (0.0-0.8); Eosinophils % 1.6 %; Hematocrit 39.2 % (37-53); Lymphocytes # 1.3 10^3/uL (0.8-4.8); Lymphocytes % 18.1 %; Mean Corpuscular HGB Conc 33.4 g/dL (30-55); Mean Corpuscular Hemoglobin 35.6 pg (27-33); Mean Corpuscular Volume 106.5 fl (82-101); Mean Platelet Volume 10.7 fL (7.4-10.4); Monocytes # 0.7 10^3/uL (0.2-0.9); Neutrophils # 5.15 10^3/uL (1.8-7.7); Neutrophils % 70.6 %; Nucleated Red Blood Cells % 0 %; Platelet Count 175 10^3/cmm (157-399); Red Blood Count 3.68 10^6/uL (3.85-5.65); Red Cell Distribution Width 13.9 % (12.1-15.1)
[2023-09-13 03:43] VITALS: BP 181/128; PULSE 84; RESP 20; O2SAT 95
--- NOTE | 2023-09-13 03:43 | W.ED.CHESTPA ---
HPI - Chest Pain General: Chief Complaint: Chest Pain Stated Complaint: SOB Time Seen by Provider: 09/13/23 03:13 History of Present Illness: Patient woke up early this morning with pain between his shoulder blades pain in his chest and shortness of breath. He noticed his heart was racing that he had to come to the ER to get checked out. Patient still unsure about his medicine and if he took it or not and this was the exact same feeling that he had last night when he was seen for the exact same thing. Review of Systems General: Reports: 10 or more systems reviewed and unremarkable except in HPI and below PFSH ED PFSH: Medical History Left ureteral calculus Renal mass Calculus of kidney with calculus of ureter History of atrial fibrillation Dyslipidemia (high LDL; low HDL) Chronic episodic atrial fibrillation Benign essential HTN Atherosclerotic heart disease of [place] coronary artery without angina pectoris Insomnia History of colon polyps Lumbar disc disease GERD (gastroesophageal reflux disease) Fibromyalgia Surgical History History of cardiac cath History of cholecystectomy History of shoulder surgery History of colonoscopy Family History Brother No problems noted. Father , at age 93 Dementia Parkinson disease Mother , at age 75 No problems noted. Denies family history of Diabetes CAD (coronary artery disease) Clotting disorder Chronic kidney disease (CKD) Suicide Anesthesia complication Bleeding disorder Lung disease Cancer Stroke Social History Smoking and tobacco/nicotine status: never used tobacco/nicotine Alcohol intake: current Alcohol intake frequency: holidays/special occasions only Substance/Drug Use: never Housing: House Marital status: / Current occupational status: retired Physical Exam Const: COMMON NORMALS: no acute distress, average body habitus, patient oriented x3, no limitations, healthy appearing, alert and well nourished HENMT: COMMON NORMALS: normocephalic, atraumatic, hearing grossly normal bilaterally, external ears normal, Normal external nose present and moist oral mucous membranes HEAD & SCALP: normocephalic and atraumatic NOSE: Normal external nose present EXTERNAL EAR: Yes external ears normal Neck/C-Spine: COMMON NORMALS: no JVD Chest: COMMONS NORMALS: normal inspection of the chest and normal palpation of entire chest wall Resp: COMMON NORMALS: normal respiratory effort, No retractions, No use of accessory muscles and clear to auscultation bilaterally AUSCULTATION: clear to auscultation bilaterally Cardio: COMMON NORMALS: no JVD, S1 normal heart sound present, S2 normal heart sound present, No gallops present (Cardio), No clicks present (Cardio) and No murmurs present (Cardio); negative for regular rhythm (Irregularly irregular tachycardic rhythm) RHYTHM: abnormal rhythm (Irregularly irregular tachycardic rhythm) HEART SOUNDS: S1 normal heart sound present and S2 normal heart sound present GI: COMMON NORMALS: Normal to inspection, nondistended, normoactive bowel sounds present, Soft to palpation, non-tender, No hepatosplenomegaly present and no masses PALPATION: Yes Soft to palpation and Yes No hepatosplenomegaly present Neuro: COMMON NORMALS: patient oriented x3 SENSORIUM/ORIENTATION: Yes alert Course Vital Signs: Vital signs: Vital Signs Temperature 98 F 09/13/23 03:09 Pulse Rate 101 H 09/13/23 07:00 Respiratory Rate 19 H 09/13/23 07:00 Blood Pressure 169/139 09/13/23 07:00 Pulse Oximetry 98 09/13/23 07:00 Oxygen Delivery Me thod Room Air 09/13/23 06:03 MDM - Chest Pain Medical Decision Making Patient presents to the ER with his normal shortness of breath and chest pain that woke him up. Patient be worked up in a standard cardiac fashion. With serial EKGs and, serial troponins, care transferred over to Dr. Ruff at shift change, Differential Diagnosis Unlikely acute massive pulmonary embolism, acute respiratory failure, acute myocardial infarction, cardiac arrest or sudden cardiac Medical Records I reviewed the patient's medical records. Lab Data I reviewed the patient's lab results. 09/13/23 03:24 09/13/23 03:24 Laboratory Results WBC 7.30 10^3/uL (3.29-11.43) 09/13/23 03:24 RBC 3.68 10^6/uL (3.85-5.65) L 09/13/23 03:24 Hgb 13.10 g/dL (11.27-16.99) 09/13/23 03:24 Hct 39.2 % (37-53) 09/13/23 03:24 MCV 106.5 fl (82-101) H 09/13/23 03:24 MCH 35.6 pg (27-33) H 09/13/23 03:24 MCHC 33.4 g/dL (30-55) 09/13/23 03:24 RDW 13.9 % (12.1-15.1) 09/13/23 03:24 Plt Count 175 10^3/cmm (157-399) 09/13/23 03:24 MPV 10.7 fL (7.4-10.4) H 09/13/23 03:24 Neut % (Auto) 70.6 % 09/13/23 03:24 Lymph % (Auto) 18.1 % 09/13/23 03:24 [place] % (Auto) 9.0 % 09/13/23 03:24 Eos % (Auto) 1.6 % 09/13/23 03:24 Baso % (Auto) 0.3 % 09/13/23 03:24 Neut # (Auto) 5.15 10^3/uL (1.8-7.7) 09/13/23 03:24 Lymph # (Auto) 1.3 10^3/uL (0.8-4.8) 09/13/23 03:24 [place] # (Auto) 0.7 10^3/uL (0.2-0.9) 09/13/23 03:24 Eos # (Auto) 0.1 10^3/uL (0.0-0.8) 09/13/23 03:24 Baso # (Auto) 0.0 10^3/uL (0.0-0.1) 09/13/23 03:24 Nucleated RBC % (auto) 0 % 09/13/23 03:24 Nucleated RBCs # 0.0 /100WBC 09/13/23 03:24 Sodium 137 mmol/L (136-145) 09/13/23 03:24 Potassium 4.1 mmol/L (3.5-5.1) 09/13/23 03:24 Chloride 103 mmol/L (98-107) 09/13/23 03:24 Carbon Dioxide 21 mmol/L (22-29) L 09/13/23 03:24 Anion Gap 17.1 (5-19) 09/13/23 03:24 BUN 15 mg/dL (8-23) 09/13/23 03:24 Creatinine 1.1 mg/dL (0.7-1.2) 09/13/23 03:24 GFR Calculation Not Reportable 09/13/23 03:24 Glucose 104 mg/dL (65-115) 09/13/23 03:24 Calculated Osmolality 285 mOsm/kg (285-295) 09/13/23 03:24 Calcium 8.8 mg/dL (8.5-10.5) 09/13/23 03:24 Total Bilirubin 1.7 mg/dL (0.15-1.2) H 09/13/23 03:24 AST 21 U/L (0-40) 09/13/23 03:24 ALT 9 U/L (0-41) 09/13/23 03:24 Alkaline Phosphatase 77 U/L (40-130) 09/13/23 03:24 Troponin T Baseline 39 ng/L (0-15) H 09/13/23 03:24 Troponin T 120 Minute 35.38 ng/L (0-15) H 09/13/23 06:00 Delta Troponin T -3.62 ABS# (0-10) L 09/13/23 06:00 Total Protein 7.4 g/dL (6.6-8.7) 09/13/23 03:24 Albumin 3.7 g/dL (3.5-5.2) 09/13/23 03:24 Globulin 3.7 g/dL (1.3-4.6) 09/13/23 03:24 No radiology studies performed this visit Discharge Plan Discharge Patient Disposition: Home Clinical Impression: Benign essential HTN A-fib Qualifiers: Atrial fibrillation type: longstanding persistent Qualified Code(s): I48.11 - Longstanding persistent atrial fibrillation Dyspnea Qualifiers: Dyspnea type: unspecified Qualified Code(s): R06.00 - Dyspnea, unspecified Condition: Stable Prescriptions: No Action losartan 50 mg tablet 50 mg PO QAM Qty: 30 0RF aspirin 81 mg Tablet,Delayed Release (Dr/Ec) 81 mg PO QAM Qty: 30 0RF potassium chloride 8 mEq tablet extended release 8 meq PO QAM Qty: 30 0RF vitamin E 268 mg (400 unit) Capsule 1 cap PO DAILY Eliquis 5 mg tablet 5 mg PO DAILY metoprolol succinate [Toprol XL] 50 mg tablet extended release 24 hr 50 mg PO BID Qty: 30 0RF furosemide [Lasix] 40 mg tablet 40 mg PO DAILY Qty: 30 0RF Discharge Orders: Discharge ED (Routine); Ordered 09/13/23 Ordered By: Jennifer Ruff Discharge Diet: Usual diet Discharge Activity: Increase activity as tolerated Patient Instructions: Opioid Safety, Pain Management Activity Restrictions/Additional Instructions: Take medications exactly as prescribed. Follow up with your doctor. Coding Level of Care Code ED Housing And Residence Life Director for Victor M Hale
[2023-09-13 03:50] LABS: Troponin(5th) Baseline 39 ng/L (0-15)
[2023-09-13 03:55] LABS: Alanine Aminotransferase 9 U/L (0-41); Albumin Level 3.7 g/dL (3.5-5.2); Alkaline Phosphatase 77 U/L (40-130); Blood Urea Nitrogen 15 mg/dL (8-23); Calcium 8.8 mg/dL (8.5-10.5); Carbon Dioxide 21 mmol/L (22-29); Chloride 103 mmol/L (98-107); Creatinine Clr Calc Pharmacy 54.6758; Globulin 3.7 g/dL (1.3-4.6); Glucose 104 mg/dL (65-115); Osmolality Calculated 285 mOsm/kg (285-295); Sodium 137 mmol/L (136-145); Total Bilirubin 1.7 mg/dL (0.15-1.2); Total Protein 7.4 g/dL (6.6-8.7)
[2023-09-13 03:56] LABS: Anion Gap 17.1 (5-19); Aspartate Amino Transferase 21 U/L (0-40); Potassium 4.1 mmol/L (3.5-5.1)
[2023-09-13 04:34] VITALS: BP 152/110; PULSE 92; O2SAT 96
[2023-09-13 05:40] VITALS: BP 166/114; PULSE 95; O2SAT 94
--- NOTE | 2023-09-13 06:01 | ECG_ITS ---
[facility] Test Date: 2023-09-13 Pat Name: David Orozco Department: Room: Gender: Male Project Facilitator: : 1940 Requested By: Remy Melgoza Order Number: [id number] Lopez MD: Maximino Berkowitz M.D. Measurements Intervals [place] Rate: 104 P: 0 MI: 0 QRS: 28 QRSD: 83 T: 44 QT: 352 QTc: 463 Interpretive Statements ATRIAL FIBRILLATION WITH RAPID VENTRICULAR RESPONSE POSSIBLE ANTERIOR MYOCARDIAL INFARCTION , PROBABLY OLD [30 ms Q WAVE IN V3/V4, OR R < 0.2 mV IN V4] Compared to ECG 09/11/2023 02:57:16 No significant changes Electronically Signed On 09-14-2023 19:32:44 CDT by Maximino Berkowitz M.D. [id number]
[2023-09-13 06:03] VITALS: PULSE 95; RESP 21; O2SAT 96
[2023-09-13 06:24] LABS: Troponin 5 2HR 35.38 ng/L (0-15); Troponin 5 2HR Delta -3.62 ABS# (0-10)
[2023-09-13] MEDS: metoprolol succinate ER (24 HR) 50 mg Tablet PO (06:37)
[2023-09-13 07:00] VITALS: BP 169/139; PULSE 101; RESP 19; O2SAT 98
== END 2023-09-13 07:44 | disposition home or self-care (01) ==
PROVIDERS: Emergency Medicine; Emergency Provider Emergency Medicine
DX: I10 Essential (primary) hypertension (principal); I48.11 Longstanding persistent atrial fibrillation; I25.10 Atherosclerotic heart disease of native coronary artery without angina pectoris; E78.5 Hyperlipidemia, unspecified; Z79.899 Other long term (current) drug therapy; Z79.01 Long term (current) use of anticoagulants; Z79.82 Long term (current) use of aspirin
CPT/HCPCS: 36415; 80053; 84484; 85025; 93005; 96374; 99284; J3490

== ENCOUNTER 2023-09-16 03:26 | Emergency (ER) | payer MEDICARE, MEDICAID, SELFPAY ==
[2023-09-16 03:37] VITALS: BP 149/97; PULSE 96; RESP 18; TEMP 36.6; O2SAT 95; BMI 26.6
--- NOTE | 2023-09-16 03:38 | ECG_ITS ---
[facility] Test Date: 2023-09-16 Pat Name: David Orozco Department: Room: Gender: Male End Maker: : 1940 Requested By: Ally Stephen Order Number: [id number] Lopez MD: Kavon Cordoba M.D. Measurements Intervals [place] Rate: 96 P: 0 NM: 0 QRS: 237 QRSD: 82 T: 260 QT: 359 QTc: 454 Interpretive Statements ATRIAL FIBRILLATION POSSIBLE RIGHT VENTRICULAR HYPERTROPHY [SOME/ALL OF: PROMINENT R IN V1, LATE TRANSITION, RAD, MICHELLE, SSS] INFERIOR MYOCARDIAL INFARCTION , OF INDETERMINATE AGE [40+ ms Q WAVE AND/OR ST/T ABNORMALITY IN II/aVF] Compared to ECG 09/13/2023 06:01:29 Atrial abnormality now present Myocardial infarct finding still present Electronically Signed On 09-16-2023 23:26:32 CDT by Kavon Cordoba M.D. [id number] f
--- NOTE | 2023-09-16 03:38 | XRR_ITS ---
PROCEDURE INFORMATION: Exam: XR Chest Exam date and time: 09/16/2023 3:54 AM Age: 82 years old Clinical indication: Shortness of breath TECHNIQUE: Imaging protocol: Radiologic exam of the chest. Views: 1 view. COMPARISON: CR XR chest 1V portable [id number] 09/05/2023 7:38 AM FINDINGS: Lungs: There may be minimal central vascular congestion. Pleural spaces: Unremarkable. No pleural effusion. No pneumothorax. Heart/Mediastinum: The heart is enlarged. Bones/joints: Unremarkable. XR/XR chest 1V portable [id number] IMPRESSION: 1. Cardiomegaly with minimal central vascular congestion.
--- NOTE | 2023-09-16 04:06 | ED_ITS ---
HPI - SOB/Dyspnea 2 General: Chief Complaint: Shortness of Breath/Dyspnea Stated Complaint: SOB Time Seen by Provider: 09/16/23 03:34 History of Present Illness: HPI Narrative: 82-year-old male with history of atrial fibrillation and hypertension who presents to the emergency room with shortness of breath. He says it started earlier today. No lower extremity swelling. No chest pain. The patient frequents the emergency room quite regularly and has been here twice in the last week for similar complaints with no acute abnormal findings. Ask him if he ever goes to his primary physician for follow-up and he says no. He then tells me that he would rather give us something to do in the emergency room. Review of Systems 2 Narrative: Constitutional symptoms: Negative except as documented in HPI. Skin symptoms: Negative except as documented in HPI. Eye symptoms: Negative except as documented in HPI. ENMT symptoms: Negative except as documented in HPI. Respiratory symptoms: Negative except as documented in HPI. Cardiovascular symptoms: Negative except as documented in HPI. Gastrointestinal symptoms: Negative except as documented in HPI. Genitourinary symptoms: Negative except as documented in HPI. Musculoskeletal symptoms: Negative except as documented in HPI. Neurologic symptoms: Negative except as documented in HPI. Psychiatric symptoms: Negative except as documented in HPI. Endocrine symptoms: Negative except as documented in HPI. PFSH ED 2 PFSH: Medical History Left ureteral calculus Renal mass Calculus of kidney with calculus of ureter History of atrial fibrillation Dyslipidemia (high LDL; low HDL) Chronic episodic atrial fibrillation Benign essential HTN Atherosclerotic heart disease of [place] coronary artery without angina pectoris Insomnia History of colon polyps Lumbar disc disease GERD (gastroesophageal reflux disease) Fibromyalgia Surgical History History of cardiac cath History of cholecystectomy History of shoulder surgery History of colonoscopy Family History Brother No problems noted. Father , at age 93 Dementia Parkinson disease Mother , at age 75 No problems noted. Denies family history of Diabetes CAD (coronary artery disease) Clotting disorder Chronic kidney disease (CKD) Suicide Anesthesia complication Bleeding disorder Lung disease Cancer Stroke Social History Smoking and tobacco/nicotine status: never used tobacco/nicotine Alcohol intake: current Alcohol intake frequency: holidays/special occasions only Substance/Drug Use: never Housing: House Marital status: / Current occupational status: retired Physical Exam 2 Narrative: EXAM NARRATIVE: General: Alert, no acute distress. Skin: Warm, dry. Head: Normocephalic, atraumatic. Neck: Supple, trachea midline. Eye: Extraocular movements are intact. Ears, nose, mouth and throat: mucosa moist. Cardiovascular: Irregularly irregular, Normal peripheral perfusion. Respiratory: Lungs are clear to auscultation, respirations are non-labored, breath sounds are equal, Symmetrical chest wall expansion. Gastrointestinal: Soft, Nontender, Non distended Musculoskeletal: Normal ROM, no deformity. Neurological: Alert and oriented, No focal neurological deficit observed. Psychiatric: Cooperative, appropriate mood & affect. Course 2 Vital Signs: Vital signs: Vital Signs Temperature 97.8 F 09/16/23 03:37 Pulse Rate 85 09/16/23 04:54 Respiratory Rate 16 09/16/23 04:54 Blood Pressure 149/97 09/16/23 04:54 Pulse Oximetry 94 09/16/23 04:54 Oxygen Delivery Me thod Room Air 09/16/23 04:54 MDM - SOB/Dyspnea Medical Decision Making Differential diagnosis for patient with shortness of breath includes but is not limited to and based on the above HPI, review of systems and physical exam: Pneumonia. Bronchitis. Asthma or COPD with acute exacerbation. Acute coronary syndrome / [place]. Pulmonary embolism. Anxiety. Congestive heart failure. Viral infections including influenza and Covid-19. Atrial fibrillation. Anxiety. Pleural effusion. Pneumothorax. Workup: Lab work, chest X-ray and EKG ordered to evaluate, rule in and rule out above pathologies EKG: Time 3:38 AM. Rate 96. Atrial fibrillation with controlled rate, No ST-T changes, no ectopy, This was reviewed and interpreted by myself the ER physician at 3:42 AM Chest x-ray: Stable cardiomegaly. No acute process. No infiltrate. No pneumothorax. This was reviewed and interpreted by myself the ER physician. Lab Review: Laboratory results were reviewed and interpreted by myself the emergency room physician. No leukocytosis. No anemia. No renal failure. proBNP is 1500 which is actually below his baseline. Troponin is 27 which is at or below his normal. I reviewed the patient's medical record. Reexamination: Patient continues to require no oxygen. No increased work of breathing. No altered mental status. No focal motor deficits. Assessment and plan: Shortness of breath - Discharged home - Discussed findings and plan with patient. Answered any questions. - All laboratory values were reviewed and interpreted personally by myself, the ER physician - All imaging was reviewed and interpreted personally by myself, the ER physician. - Evaluation and treatment of this problem were appropriate in the emergency setting Lab Data 09/16/23 04:15 09/16/23 04:15 Labs/Radiology: Laboratory Results WBC 5.86 10^3/uL (3.29-11.43) 09/16/23 04:15 RBC 3.57 10^6/uL (3.85-5.65) L 09/16/23 04:15 Hgb 12.80 g/dL (11.27-16.99) 09/16/23 04:15 Hct 38.3 % (37-53) 09/16/23 04:15 MCV 107.3 fl (82-101) H 09/16/23 04:15 MCH 35.9 pg (27-33) H 09/16/23 04:15 MCHC 33.4 g/dL (30-55) 09/16/23 04:15 RDW 14.2 % (12.1-15.1) 09/16/23 04:15 Plt Count 197 10^3/cmm (157-399) 09/16/23 04:15 MPV 10.0 fL (7.4-10.4) 09/16/23 04:15 Neut % (Auto) 61.1 % 09/16/23 04:15 Lymph % (Auto) 23.5 % 09/16/23 04:15 [place] % (Auto) 12.1 % 09/16/23 04:15 Eos % (Auto) 2.7 % 09/16/23 04:15 Baso % (Auto) 0.3 % 09/16/23 04:15 Neut # (Auto) 3.57 10^3/uL (1.8-7.7) 09/16/23 04:15 Lymph # (Auto) 1.4 10^3/uL (0.8-4.8) 09/16/23 04:15 [place] # (Auto) 0.7 10^3/uL (0.2-0.9) 09/16/23 04:15 Eos # (Auto) 0.2 10^3/uL (0.0-0.8) 09/16/23 04:15 Baso # (Auto) 0.0 10^3/uL (0.0-0.1) 09/16/23 04:15 Nucleated RBC % (auto) 0 % 09/16/23 04:15 Nucleated RBCs # 0.0 /100WBC 09/16/23 04:15 Sodium 139 mmol/L (136-145) 09/16/23 04:15 Potassium 4.0 mmol/L (3.5-5.1) 09/16/23 04:15 Chloride 104 mmol/L (98-107) 09/16/23 04:15 Carbon Dioxide 20 mmol/L (22-29) L 09/16/23 04:15 Anion Gap 19.0 (5-19) 09/16/23 04:15 BUN 16 mg/dL (8-23) 09/16/23 04:15 Creatinine 1.1 mg/dL (0.7-1.2) 09/16/23 04:15 GFR Calculation Not Reportable 09/16/23 04:15 Glucose 98 mg/dL (65-115) 09/16/23 04:15 Calculated Osmolality 289 mOsm/kg (285-295) 09/16/23 04:15 Calcium 8.8 mg/dL (8.5-10.5) 09/16/23 04:15 Total Bilirubin 1.2 mg/dL (0.15-1.2) 09/16/23 04:15 AST 18 U/L (0-40) 09/16/23 04:15 ALT 10 U/L (0-41) 09/16/23 04:15 Alkaline Phosphatase 89 U/L (40-130) 09/16/23 04:15 Troponin T Baseline 27 ng/L (0-15) H 09/16/23 04:15 NT-Pro-B Natriuret Pep 1750 pg/mL (0-450) H 09/16/23 04:15 Total Protein 7.4 g/dL (6.6-8.7) 09/16/23 04:15 Albumin 3.9 g/dL (3.5-5.2) 09/16/23 04:15 Globulin 3.5 g/dL (1.3-4.6) 09/16/23 04:15 XR interpretation done by ED provider, pending radiology final review Discharge Plan Discharge Patient Disposition: Home Clinical Impression: Dyspnea Qualifiers: Dyspnea type: unspecified Qualified Code(s): R06.00 - Dyspnea, unspecified Condition: Stable Prescriptions: No Action losartan 50 mg tablet 50 mg PO QAM Qty: 30 0RF aspirin 81 mg Tablet,Delayed Release (Dr/Ec) 81 mg PO QAM Qty: 30 0RF potassium chloride 8 mEq tablet extended release 8 meq PO QAM Qty: 30 0RF vitamin E 268 mg (400 unit) Capsule 1 cap PO DAILY Eliquis 5 mg tablet 5 mg PO DAILY metoprolol succinate [Toprol XL] 50 mg tablet extended release 24 hr 50 mg PO BID Qty: 30 0RF furosemide [Lasix] 40 mg tablet 40 mg PO DAILY Qty: 30 0RF Discharge Orders: Discharge ED (Routine); Ordered 09/16/23 Ordered By: Ally David Discharge Diet: Usual diet Discharge Activity: Increase activity as tolerated Patient Instructions: Opioid Safety, Pain Management Activity Restrictions/Additional Instructions: Thank you for choosing [facility] for your healthcare needs today. Please realize this is an emergency room and that we are providing you with a medical screening exam and this may not be complete and all inclusive of all the testing and or work up that you may need to determine your ailment or severity of your illness. You have been screened and evaluated and felt safe for discharge. Health conditions do change or evolve sometimes and as such it is important that you follow up with your Primary Doctor to be re checked, 3-5 days is a general good time frame for follow up. You are always welcome to return to the ED for re assessment if your symptoms are worsening or you have new concerns Coding Level of Care Code ED Social Media Executive for Vcitor M Hale
[2023-09-16 04:19] LABS: Basophils % 0.3 %; Eosinophils # 0.2 10^3/uL (0.0-0.8); Eosinophils % 2.7 %; Hematocrit 38.3 % (37-53); Lymphocytes # 1.4 10^3/uL (0.8-4.8); Lymphocytes % 23.5 %; Mean Corpuscular HGB Conc 33.4 g/dL (30-55); Mean Corpuscular Hemoglobin 35.9 pg (27-33); Mean Corpuscular Volume 107.3 fl (82-101); Monocytes # 0.7 10^3/uL (0.2-0.9); Monocytes % 12.1 %; Neutrophils # 3.57 10^3/uL (1.8-7.7); Neutrophils % 61.1 %; Nucleated Red Blood Cells % 0 %; Platelet Count 197 10^3/cmm (157-399); Red Blood Count 3.57 10^6/uL (3.85-5.65); Red Cell Distribution Width 14.2 % (12.1-15.1); White Blood Count 5.86 10^3/uL (3.29-11.43)
[2023-09-16 04:23] VITALS: BP 143/97; PULSE 108; RESP 20; O2SAT 93
[2023-09-16 04:36] LABS: Troponin(5th) Baseline 27 ng/L (0-15)
[2023-09-16 04:54] VITALS: BP 149/97; PULSE 85; RESP 16; O2SAT 94
[2023-09-16 04:58] LABS: Alanine Aminotransferase 10 U/L (0-41); Albumin Level 3.9 g/dL (3.5-5.2); Alkaline Phosphatase 89 U/L (40-130); Aspartate Amino Transferase 18 U/L (0-40); Blood Urea Nitrogen 16 mg/dL (8-23); Calcium 8.8 mg/dL (8.5-10.5); Carbon Dioxide 20 mmol/L (22-29); Chloride 104 mmol/L (98-107); Creatinine Clr Calc Pharmacy 51.4688; Globulin 3.5 g/dL (1.3-4.6); Glucose 98 mg/dL (65-115); NT Pro B Type Natriuretic Pept 1750 pg/mL (0-450); Osmolality Calculated 289 mOsm/kg (285-295); Sodium 139 mmol/L (136-145); Total Bilirubin 1.2 mg/dL (0.15-1.2); Total Protein 7.4 g/dL (6.6-8.7)
[2023-09-16 05:20] VITALS: BP 149/97; PULSE 85; RESP 16; TEMP 36.6; O2SAT 94
== END 2023-09-16 05:21 | disposition home or self-care (01) ==
PROVIDERS: Emergency Provider Emergency Medicine
DX: R06.00 Dyspnea, unspecified (principal); Z79.82 Long term (current) use of aspirin; Z79.01 Long term (current) use of anticoagulants; I48.91 Unspecified atrial fibrillation; E78.5 Hyperlipidemia, unspecified; I10 Essential (primary) hypertension; I25.10 Atherosclerotic heart disease of native coronary artery without angina pectoris
CPT/HCPCS: 36415; 71045; 80053; 83880; 84484; 85025; 93005; 99285

== ENCOUNTER 2023-09-22 22:12 | Emergency (ER) | payer MEDICARE, MEDICAID, SELFPAY ==
--- NOTE | 2023-09-22 22:15 | ECG_ITS ---
[facility] Test Date: 2023-09-22 Pat Name: David Orozco Department: Room: Gender: Male Construction Inspector: : 1940 Requested By: Remy Melgoza Order Number: [id number] Lopez MD: Maximino Berkowitz M.D. Measurements Intervals [place] Rate: 109 P: 0 GA: 0 QRS: -15 QRSD: 84 T: 40 QT: 324 QTc: 438 Interpretive Statements ATRIAL FIBRILLATION WITH RAPID VENTRICULAR RESPONSE POSSIBLE ANTERIOR MYOCARDIAL INFARCTION , OF INDETERMINATE AGE [30 ms Q WAVE IN V3/V4, OR R < 0.2 mV IN V4] Compared to ECG 09/16/2023 03:38:40 Atrial abnormality no longer present Myocardial infarct finding still present Electronically Signed On 09-22-2023 23:21:04 CDT by Maximino Berkowitz M.D. [id number]
[2023-09-22 22:21] VITALS: BP 170/102; PULSE 103; RESP 20; TEMP 36.3; O2SAT 97; BMI 30.4
[2023-09-22 23:25] LABS: Basophils % 0.3 %; Eosinophils # 0.2 10^3/uL (0.0-0.8); Eosinophils % 2.5 %; Hematocrit 39.8 % (37-53); Lymphocytes # 1.4 10^3/uL (0.8-4.8); Lymphocytes % 21.7 %; Mean Corpuscular HGB Conc 33.4 g/dL (30-55); Mean Corpuscular Hemoglobin 35.1 pg (27-33); Mean Platelet Volume 9.7 fL (7.4-10.4); Monocytes # 0.8 10^3/uL (0.2-0.9); Monocytes % 13.3 %; Neutrophils # 3.91 10^3/uL (1.8-7.7); Neutrophils % 61.9 %; Nucleated Red Blood Cells % 0 %; Platelet Count 244 10^3/cmm (157-399); Red Blood Count 3.79 10^6/uL (3.85-5.65); Red Cell Distribution Width 13.5 % (12.1-15.1); White Blood Count 6.32 10^3/uL (3.29-11.43)
[2023-09-22 23:36] LABS: Alanine Aminotransferase 8 U/L (0-41); Albumin Level 3.7 g/dL (3.5-5.2); Alkaline Phosphatase 81 U/L (40-130); Anion Gap 17.9 (5-19); Aspartate Amino Transferase 14 U/L (0-40); Blood Urea Nitrogen 13 mg/dL (8-23); Calcium 9.3 mg/dL (8.5-10.5); Carbon Dioxide 22 mmol/L (22-29); Chloride 102 mmol/L (98-107); Creatinine Clr Calc Pharmacy 60.1434; Globulin 3.8 g/dL (1.3-4.6); Glucose 137 mg/dL (65-115); Lipase 65 U/L (13-60); Osmolality Calculated 288 mOsm/kg (285-295); Potassium 3.9 mmol/L (3.5-5.1); Sodium 138 mmol/L (136-145); Total Bilirubin 0.9 mg/dL (0.15-1.2); Total Protein 7.5 g/dL (6.6-8.7)
[2023-09-23 00:24] LABS: Troponin(5th) Baseline 13 ng/L (0-15)
[2023-09-23 00:33] VITALS: BP 156/100; PULSE 91; RESP 13; TEMP 36.6; O2SAT 97
[2023-09-23 00:49] VITALS: BP 160/105; PULSE 88; RESP 17; O2SAT 95
--- NOTE | 2023-09-23 01:01 | ECG_ITS ---
[facility] Test Date: 2023-09-23 Pat Name: David Orozco Department: Room: Gender: Male Laser Cutter: : 1940 Requested By: Remy Melgoza Order Number: [id number] Lopez MD: Kavon Cordoba M.D. Measurements Intervals [place] Rate: 92 P: 0 MS: 0 QRS: -2 QRSD: 78 T: 38 QT: 351 QTc: 435 Interpretive Statements ATRIAL FIBRILLATION POSSIBLE ANTERIOR MYOCARDIAL INFARCTION , PROBABLY OLD [30 ms Q WAVE IN V3/V4, OR R < 0.2 mV IN V4] ABNORMAL RHYTHM ECG Compared to ECG 09/22/2023 22:15:10 No significant changes Electronically Signed On 09-23-2023 21:35:12 CDT by Kavon Cordoba M.D. [id number]
[2023-09-23 01:02] LABS: Add Urine Culture? No; Add Urine Microscopic? YES; Bacteria Urine TRACE /hpf; Bilirubin Urine 1+ (Negative); Blood Urine 3+ (Negative); Glucose Urine UA Norm (Normal); Ketones Urine Negative (Negative); Leukocyte Esterase Urine Negative (Negative); Nitrate Urine Negative (Negative); Protein Urine Trace (Negative); Specific Gravity, Urine 1.025 (1.005-1.030); Urine Appearance Clear (CLEAR); Urine Color Yellow (Yellow); Urobilinogen Urine 1 mg/dL (Negative); pH Urine 5 (5-7)
--- NOTE | 2023-09-23 01:18 | ED_ITS ---
HPI - Abdominal Pain 2 General: Chief Complaint: Abdominal Pain Stated Complaint: SOB\Side Pain Time Seen by Provider: 09/23/23 00:21 History of Present Illness: Patient presents to the ER with complaints of left lower quadrant abdominal pain that started about 4 hours ago. Patient describes this as dull and there is a little bit over to the right but primarily stays in the left. Denies any nausea vomiting diarrhea coughs colds fevers chills diarrhea or constipation. Review of Systems 2 General: Reports: 10 or more systems reviewed and unremarkable except in HPI and below PFSH ED 2 PFSH: Medical History Left ureteral calculus Renal mass Calculus of kidney with calculus of ureter History of atrial fibrillation Dyslipidemia (high LDL; low HDL) Chronic episodic atrial fibrillation Benign essential HTN Atherosclerotic heart disease of [place] coronary artery without angina pectoris Insomnia History of colon polyps Lumbar disc disease GERD (gastroesophageal reflux disease) Fibromyalgia Surgical History History of cardiac cath History of cholecystectomy History of shoulder surgery History of colonoscopy Family History Brother No problems noted. Father , at age 93 Dementia Parkinson disease Mother , at age 75 No problems noted. Denies family history of Diabetes CAD (coronary artery disease) Clotting disorder Chronic kidney disease (CKD) Suicide Anesthesia complication Bleeding disorder Lung disease Cancer Stroke Social History Smoking and tobacco/nicotine status: never used tobacco/nicotine Alcohol intake: current Alcohol intake frequency: holidays/special occasions only Substance/Drug Use: never Housing: House Marital status: / Current occupational status: retired Physical Exam 2 Const: COMMON NORMALS: no acute distress, average body habitus, patient oriented x3, no limitations, healthy appearing, alert and well nourished HENMT: COMMON NORMALS: normocephalic, atraumatic, hearing grossly normal bilaterally, external ears normal, Normal external nose present and moist oral mucous membranes HEAD & SCALP: normocephalic and atraumatic NOSE: Normal external nose present EXTERNAL EAR: Yes external ears normal Neck/C-Spine: COMMON NORMALS: no JVD Chest: COMMONS NORMALS: normal inspection of the chest and normal palpation of entire chest wall Resp: COMMON NORMALS: normal respiratory effort, No retractions, No use of accessory muscles and clear to auscultation bilaterally AUSCULTATION: clear to auscultation bilaterally Cardio: COMMON NORMALS: no JVD, regular rate, regular rhythm, S1 normal heart sound present, S2 normal heart sound present, No gallops present (Cardio), No clicks present (Cardio), No murmurs present (Cardio) and No rub (Cardio) R ATE: regular rate RHYTHM: regular rhythm HEART SOUNDS: S1 normal heart sound present and S2 normal heart sound present GI: COMMON NORMALS: Normal to inspection, nondistended, normoactive bowel sounds present, Soft to palpation, non-tender, No hepatosplenomegaly present and no masses PALPATION: Yes Soft to palpation and Yes No hepatosplenomegaly present Neuro: COMMON NORMALS: patient oriented x3 SENSORIUM/ORIENTATION: Yes alert Course 2 Vital Signs: Vital signs: Vital Signs Temperature 97.8 F 09/23/23 00:33 Pulse Rate 88 09/23/23 00:49 Respiratory Rate 17 09/23/23 00:49 Blood Pressure 160/105 09/23/23 00:49 Pulse Oximetry 95 09/23/23 00:49 Oxygen Delivery Me thod Room Air 09/23/23 00:49 MDM - Abdominal Pain Medical Decision Making Patient was evaluated physically and with lab work to include CBC CMP troponins EKG, urinalysis, urinalysis showed 3+ blood and 5-10 red blood cells otherwise everything was essentially benign. Patient be discharged home with diagnosis of left lower quadrant pain and told to follow-up with his PCP Differential Diagnosis Likely abdominal pain Medical Records I reviewed the patient's medical records. Lab Data I reviewed the patient's lab results. 09/22/23 23:05 09/22/23 23:05 Labs/Radiology: Laboratory Results WBC 6.32 10^3/uL (3.29-11.43) 09/22/23 23:05 RBC 3.79 10^6/uL (3.85-5.65) L 09/22/23 23:05 Hgb 13.30 g/dL (11.27-16.99) 09/22/23 23:05 Hct 39.8 % (37-53) 09/22/23 23:05 MCV 105.0 fl (82-101) H 09/22/23 23:05 MCH 35.1 pg (27-33) H 09/22/23 23:05 MCHC 33.4 g/dL (30-55) 09/22/23 23:05 RDW 13.5 % (12.1-15.1) 09/22/23 23:05 Plt Count 244 10^3/cmm (157-399) 09/22/23 23:05 MPV 9.7 fL (7.4-10.4) 09/22/23 23:05 Neut % (Auto) 61.9 % 09/22/23 23:05 Lymph % (Auto) 21.7 % 09/22/23 23:05 [place] % (Auto) 13.3 % 09/22/23 23:05 Eos % (Auto) 2.5 % 09/22/23 23:05 Baso % (Auto) 0.3 % 09/22/23 23:05 Neut # (Auto) 3.91 10^3/uL (1.8-7.7) 09/22/23 23:05 Lymph # (Auto) 1.4 10^3/uL (0.8-4.8) 09/22/23 23:05 [place] # (Auto) 0.8 10^3/uL (0.2-0.9) 09/22/23 23:05 Eos # (Auto) 0.2 10^3/uL (0.0-0.8) 09/22/23 23:05 Baso # (Auto) 0.0 10^3/uL (0.0-0.1) 09/22/23 23:05 Nucleated RBC % (auto) 0 % 09/22/23 23:05 Nucleated RBCs # 0.0 /100WBC 09/22/23 23:05 Sodium 138 mmol/L (136-145) 09/22/23 23:05 Potassium 3.9 mmol/L (3.5-5.1) 09/22/23 23:05 Chloride 102 mmol/L (98-107) 09/22/23 23:05 Carbon Dioxide 22 mmol/L (22-29) 09/22/23 23:05 Anion Gap 17.9 (5-19) 09/22/23 23:05 BUN 13 mg/dL (8-23) 09/22/23 23:05 Creatinine 1.0 mg/dL (0.7-1.2) 09/22/23 23:05 GFR Calculation Not Reportable 09/22/23 23:05 Glucose 137 mg/dL (65-115) H 09/22/23 23:05 Calculated Osmolality 288 mOsm/kg (285-295) 09/22/23 23:05 Calcium 9.3 mg/dL (8.5-10.5) 09/22/23 23:05 Total Bilirubin 0.9 mg/dL (0.15-1.2) 09/22/23 23:05 AST 14 U/L (0-40) 09/22/23 23:05 ALT 8 U/L (0-41) 09/22/23 23:05 Alkaline Phosphatase 81 U/L (40-130) 09/22/23 23:05 Troponin T Baseline 13 ng/L (0-15) 09/22/23 23:05 Troponin T 120 Minute 12.20 ng/L (0-15) 09/23/23 01:08 Total Protein 7.5 g/dL (6.6-8.7) 09/22/23 23:05 Albumin 3.7 g/dL (3.5-5.2) 09/22/23 23:05 Globulin 3.8 g/dL (1.3-4.6) 09/22/23 23:05 Lipase 65 U/L (13-60) H 09/22/23 23:05 Urine Color Yellow (Yellow) 09/23/23 00:51 Urine Appearance Clear (CLEAR) 09/23/23 00:51 Urine pH 5 (5-7) 09/23/23 00:51 Ur Specific [place] 1.025 (1.005-1.030) 09/23/23 00:51 Urine Protein Trace (Negative) 09/23/23 00:51 Urine Glucose (UA) Norm (Normal) 09/23/23 00:51 Urine Ketones Negative (Negative) 09/23/23 00:51 Urine Blood 3+ (Negative) H 09/23/23 00:51 Urine Nitrate Negative (Negative) 09/23/23 00:51 Urine Bilirubin 1+ (Negative) H 09/23/23 00:51 Urine Urobilinogen 1 mg/dL (Negative) H 09/23/23 00:51 Ur Leukocyte Esterase Negative (Negative) 09/23/23 00:51 Urine RBC 5-10 /hpf (0-2) H 09/23/23 00:51 Urine WBC None /hpf (0-5) 09/23/23 00:51 Ur Squamous Epith Cells None /hpf (0-5) 09/23/23 00:51 Amorphous Sediment Not Reportable 09/23/23 00:51 Urine Bacteria Trace /hpf (NONE) 09/23/23 00:51 No radiology studies performed this visit EKG Data EKG 1: I personally reviewed and interpreted this EKG as follows: EKG interpretation date: 09/23/23 EKG interpretation time: 01:01 Interpretation: Ventricular rate 92 bpm, QRS duration 78, QTc of 4 1, atrial fibrillation EKG 2: I personally reviewed and interpreted this EKG as follows: EKG interpretation date: 09/22/23 EKG interpretation time: 22:15 Interpretation: Ventricular rate 109 bpm, QRS duration 84, QTc of 388, A-fib with RVR Discharge Plan Discharge Patient Disposition: Home Clinical Impression: Abdominal pain, acute, left lower quadrant Condition: Stable Prescriptions: No Action losartan 50 mg tablet 50 mg PO QAM Qty: 30 0RF aspirin 81 mg Tablet,Delayed Release (Dr/Ec) 81 mg PO QAM Qty: 30 0RF potassium chloride 8 mEq tablet extended release 8 meq PO QAM Qty: 30 0RF vitamin E 268 mg (400 unit) Capsule 1 cap PO DAILY Eliquis 5 mg tablet 5 mg PO DAILY metoprolol succinate [Toprol XL] 50 mg tablet extended release 24 hr 50 mg PO BID Qty: 30 0RF furosemide [Lasix] 40 mg tablet 40 mg PO DAILY Qty: 30 0RF Discharge Orders: Discharge ED (Routine); Ordered 09/23/23 Ordered By: Remy Melgoza Patient Instructions: Abdominal Pain (ED) Activity Restrictions/Additional Instructions: Your workup did not show any acute cause of your left lower quadrant abdominal pain. Please follow-up with your family practice physician for further evaluation and treatment. Coding Level of Care Code ED Cheesemaking Laborer for Victor M Hale
== END 2023-09-23 01:46 | disposition home or self-care (01) ==
PROVIDERS: Emergency Provider Emergency Medicine
DX: R10.32 Left lower quadrant pain (principal); Z79.01 Long term (current) use of anticoagulants; Z79.82 Long term (current) use of aspirin; E78.5 Hyperlipidemia, unspecified; I10 Essential (primary) hypertension; I25.10 Atherosclerotic heart disease of native coronary artery without angina pectoris; Z87.442 Personal history of urinary calculi
CPT/HCPCS: 36415; 80053; 81001; 83690; 84484; 85025; 93005; 99284

== ENCOUNTER 2023-10-10 02:58 | Emergency (ER) | payer MEDICARE, MEDICAID, SELFPAY ==
[2023-10-10 03:01] VITALS: BP 184/93; PULSE 97; RESP 18; TEMP 36.6; O2SAT 94; BMI 25.8
--- NOTE | 2023-10-10 03:14 | XRR_ITS ---
PROCEDURE INFORMATION: Exam: XR Chest Exam date and time: 10/10/2023 3:35 AM Age: 82 years old Clinical indication: Pain; Chest pressure; Additional info: SOB TECHNIQUE: Imaging protocol: Radiologic exam of the chest. Views: 1 view. COMPARISON: CR (CHEST, ) 09/16/2023 3:54 AM FINDINGS: Lungs: Mild coarsening of the interstitium stable from prior. Negative for consolidation. Negative for mass. Reduced lung volumes without significant change. Pleural spaces: Unremarkable. No pleural effusion. No pneumothorax. Heart/Mediastinum: Cardiomegaly redemonstrated. No change in size or contour. Bones/joints: Unremarkable. XR/XR chest 1V portable [id number] IMPRESSION: No focal acute pulmonary disease identified.
--- NOTE | 2023-10-10 03:14 | ECG_ITS ---
[facility] Test Date: 2023-10-10 Pat Name: Davdi Orozco Department: Room: Gender: Male Demo Specialist: : 1940 Requested By: Robert Jon Order Number: [id number] Lopez MD: Maximino Berkowitz M.D. Measurements Intervals [place] Rate: 110 P: 0 FL: 0 QRS: -3 QRSD: 83 T: 52 QT: 326 QTc: 442 Interpretive Statements ATRIAL FIBRILLATION WITH RAPID VENTRICULAR RESPONSE POSSIBLE ANTERIOR MYOCARDIAL INFARCTION , PROBABLY OLD [30 ms Q WAVE IN V3/V4, OR R < 0.2 mV IN V4] ABNORMAL RHYTHM ECG Compared to ECG 09/23/2023 01:01:45 No significant changes Electronically Signed On 10-10-2023 9:06:34 CDT by Maximino Berkowitz M.D. [id number]
[2023-10-10 03:21] LABS: Basophils % 0.4 %; Eosinophils # 0.3 10^3/uL (0.0-0.8); Eosinophils % 3.9 %; Lymphocytes # 1.2 10^3/uL (0.8-4.8); Lymphocytes % 15.4 %; Mean Corpuscular HGB Conc 33.5 g/dL (30-55); Mean Corpuscular Hemoglobin 35.2 pg (27-33); Mean Platelet Volume 10.5 fL (7.4-10.4); Monocytes # 0.8 10^3/uL (0.2-0.9); Monocytes % 10.2 %; Neutrophils # 5.61 10^3/uL (1.8-7.7); Neutrophils % 69.9 %; Nucleated Red Blood Cells % 0 %; Platelet Count 213 10^3/cmm (157-399); Red Blood Count 3.81 10^6/uL (3.85-5.65); Red Cell Distribution Width 13.5 % (12.1-15.1); White Blood Count 8.03 10^3/uL (3.29-11.43)
--- NOTE | 2023-10-10 03:21 | W.ED.SOB ---
HPI - SOB/Dyspnea General: Chief Complaint: Shortness of Breath/Dyspnea Stated Complaint: CP SOB Time Seen by Provider: 10/10/23 03:02 History of Present Illness: HPI Narrative: 82-year-old male presents with feeling that he cannot catch his breath. Patient states it awoke him from sleep. No reports of fever or chills. He denies chest pain to me. Associated symptoms: Deny chest pain, fever(s) or palpitations Review of Systems Const: Denies: fever(s) or chills Card: Denies: chest pain or palpitations Resp: Reports: other (Please see HPI) : Denies: flank pain or difficulty urinating Musc: Denies: neck pain or back pain PFSH ED PFSH: Medical History Left ureteral calculus Renal mass Calculus of kidney with calculus of ureter History of atrial fibrillation Dyslipidemia (high LDL; low HDL) Chronic episodic atrial fibrillation Benign essential HTN Atherosclerotic heart disease of [place] coronary artery without angina pectoris Insomnia History of colon polyps Lumbar disc disease GERD (gastroesophageal reflux disease) Fibromyalgia Surgical History History of cardiac cath History of cholecystectomy History of shoulder surgery History of colonoscopy Family History Brother No problems noted. Father , at age 93 Dementia Parkinson disease Mother , at age 75 No problems noted. Denies family history of Diabetes CAD (coronary artery disease) Clotting disorder Chronic kidney disease (CKD) Suicide Anesthesia complication Bleeding disorder Lung disease Cancer Stroke Social History Smoking and tobacco/nicotine status: never used tobacco/nicotine Alcohol intake: current Alcohol intake frequency: holidays/special occasions only Substance/Drug Use: never Housing: House Marital status: / Current occupational status: retired Physical Exam Const: COMMON NORMALS: no acute distress, patient oriented x3, no limitations and alert Resp: COMMON NORMALS: normal respiratory effort, No use of accessory muscles and clear to auscultation bilaterally AUSCULTATION: clear to auscultation bilaterally Cardio: RATE: tachycardic RHYTHM: abnormal rhythm HEART SOUNDS: Murmur heart sound present Neuro: COMMON NORMALS: patient oriented x3, moves all extremities, no focal motor deficits and no sensory deficits noted SENSORIUM/ORIENTATION: Yes alert Psych: COMMON NORMALS: mental status grossly normal, Normal thought process present and cooperative THOUGHT PROCESS: Normal thought process present Skin: COMMON NORMALS: turgor normal GENERAL SKIN EXAM: turgor normal Course Vital Signs: Vital signs: Vital Signs Temperature 98 F 10/10/23 03:01 Pulse Rate 97 10/10/23 04:46 Respiratory Rate 18 10/10/23 03:01 Blood Pressure 184/93 10/10/23 03:01 Pulse Oximetry 93 10/10/23 04:46 Oxygen Delivery Me thod Room Air 10/10/23 03:01 MDM - SOB/Dyspnea Medical Decision Making Patient with numerous similar visits frequently. Patient x-ray was ordered reviewed with initial interpretation of similar to previous x-rays biweekly with no acute findings. Patient's vital signs were stable. He is in chronic A-fib on his EKG with no acute changes. Patient O2 saturation was in the mid to upper 90s throughout his stay. Following labs and x-ray he reports that he is ready to be discharged home. He was stable upon discharge. Lab Data 10/10/23 03:10 10/10/23 03:10 Labs/Radiology: Radiology Impressions Chest X-Ray 10/10/23 03:14 IMPRESSION: No focal acute pulmonary disease identified. Laboratory Results WBC 8.03 10^3/uL (3.29-11.43) 10/10/23 03:10 RBC 3.81 10^6/uL (3.85-5.65) L 10/10/23 03:10 Hgb 13.40 g/dL (11.27-16.99) 10/10/23 03:10 Hct 40.0 % (37-53) 10/10/23 03:10 MCV 105.0 fl (82-101) H 10/10/23 03:10 MCH 35.2 pg (27-33) H 10/10/23 03:10 MCHC 33.5 g/dL (30-55) 10/10/23 03:10 RDW 13.5 % (12.1-15.1) 10/10/23 03:10 Plt Count 213 10^3/cmm (157-399) 10/10/23 03:10 MPV 10.5 fL (7.4-10.4) H 10/10/23 03:10 Neut % (Auto) 69.9 % 10/10/23 03:10 Lymph % (Auto) 15.4 % 10/10/23 03:10 [place] % (Auto) 10.2 % 10/10/23 03:10 Eos % (Auto) 3.9 % 10/10/23 03:10 Baso % (Auto) 0.4 % 10/10/23 03:10 Neut # (Auto) 5.61 10^3/uL (1.8-7.7) 10/10/23 03:10 Lymph # (Auto) 1.2 10^3/uL (0.8-4.8) 10/10/23 03:10 [place] # (Auto) 0.8 10^3/uL (0.2-0.9) 10/10/23 03:10 Eos # (Auto) 0.3 10^3/uL (0.0-0.8) 10/10/23 03:10 Baso # (Auto) 0.0 10^3/uL (0.0-0.1) 10/10/23 03:10 Nucleated RBC % (auto) 0 % 10/10/23 03:10 Nucleated RBCs # 0.0 /100WBC 10/10/23 03:10 Sodium 141 mmol/L (136-145) 10/10/23 03:10 Potassium 3.9 mmol/L (3.5-5.1) 10/10/23 03:10 Chloride 105 mmol/L (98-107) 10/10/23 03:10 Carbon Dioxide 22 mmol/L (22-29) 10/10/23 03:10 Anion Gap 17.9 (5-19) 10/10/23 03:10 BUN 11 mg/dL (8-23) 10/10/23 03:10 Creatinine 1.1 mg/dL (0.7-1.2) 10/10/23 03:10 GFR Calculation Not Reportable 10/10/23 03:10 Glucose 115 mg/dL (65-115) 10/10/23 03:10 Calculated Osmolality 292 mOsm/kg (285-295) 10/10/23 03:10 Calcium 9.1 mg/dL (8.5-10.5) 10/10/23 03:10 Magnesium 1.7 mg/dL (1.7-2.3) 10/10/23 03:10 NT-Pro-B Natriuret Pep 3982 pg/mL (0-450) H 10/10/23 03:10 XR interpretation done by ED provider, pending radiology final review Discharge Plan Discharge Patient Disposition: Home Clinical Impression: Atrial fibrillation, chronic Condition: Stable Prescriptions: No Action losartan 50 mg tablet 50 mg PO QAM Qty: 30 0RF aspirin 81 mg Tablet,Delayed Release (Dr/Ec) 81 mg PO QAM Qty: 30 0RF potassium chloride 8 mEq tablet extended release 8 meq PO QAM Qty: 30 0RF vitamin E 268 mg (400 unit) Capsule 1 cap PO DAILY Eliquis 5 mg tablet 5 mg PO DAILY metoprolol succinate [Toprol XL] 50 mg tablet extended release 24 hr 50 mg PO BID Qty: 30 0RF furosemide [Lasix] 40 mg tablet 40 mg PO DAILY Qty: 30 0RF Discharge Orders: Discharge ED (Routine); Ordered 10/10/23 Ordered By: Robert Jon Discharge Diet: Usual diet Discharge Activity: Increase activity as tolerated Patient Instructions: Atrial Fibrillation, Opioid Safety, Pain Management Activity Restrictions/Additional Instructions: Please be sure you are taking your 40 mg of Lasix daily. Please follow your primary care provider next week for recheck of your symptoms. Coding Level of Care Code ED Ribbon Hanking Machine Operator for Victor M Hale
[2023-10-10 03:33] LABS: Anion Gap 17.9 (5-19); Blood Urea Nitrogen 11 mg/dL (8-23); Calcium 9.1 mg/dL (8.5-10.5); Carbon Dioxide 22 mmol/L (22-29); Chloride 105 mmol/L (98-107); Creatinine Clr Calc Pharmacy 50.8274; Glucose 115 mg/dL (65-115); Magnesium 1.7 mg/dL (1.7-2.3); Osmolality Calculated 292 mOsm/kg (285-295); Potassium 3.9 mmol/L (3.5-5.1); Sodium 141 mmol/L (136-145)
[2023-10-10 03:43] LABS: NT Pro B Type Natriuretic Pept 3982 pg/mL (0-450)
[2023-10-10 04:46] VITALS: PULSE 97; O2SAT 93
== END 2023-10-10 04:33 | disposition home or self-care (01) ==
PROVIDERS: Emergency Provider Student in an Organized Health Care Education/Training Program
DX: I48.20 Chronic atrial fibrillation, unspecified (principal); Z79.82 Long term (current) use of aspirin; Z79.01 Long term (current) use of anticoagulants; E78.5 Hyperlipidemia, unspecified; I10 Essential (primary) hypertension; I25.10 Atherosclerotic heart disease of native coronary artery without angina pectoris
CPT/HCPCS: 71045; 80048; 83735; 83880; 85025; 93005; 99285

== ENCOUNTER 2023-10-12 06:14 | Emergency (ER) | payer MEDICARE, MEDICAID, SELFPAY ==
[2023-10-12 06:22] VITALS: BP 174/118; PULSE 106; RESP 18; TEMP 36.6; O2SAT 94; BMI 30.4
[2023-10-12 06:25] VITALS: BP 177/122; PULSE 110; RESP 22; O2SAT 98
--- NOTE | 2023-10-12 06:29 | ECG_ITS ---
[facility] Test Date: 2023-10-12 Pat Name: David Orozco Department: Room: Gender: Male Parish Nurse: : 1940 Requested By: Glynn Stephen Order Number: [id number] Jessica MD: Js Hendricks M.D. Measurements Intervals [place] Rate: 101 P: 0 [place]: 0 QRS: 33 QRSD: 81 T: 59 QT: 339 QTc: 441 Interpretive Statements ATRIAL FIBRILLATION WITH RAPID VENTRICULAR RESPONSE MINIMAL ST DEPRESSION [0.025+ mV ST DEPRESSION] ABNORMAL RHYTHM ECG Compared to ECG 10/10/2023 03:04:32 ST (T wave) deviation now present Myocardial infarct finding no longer present Electronically Signed On 10-13-2023 14:06:10 CDT by Js Hendricks M.D. [id number]
[2023-10-12 07:00] VITALS: BP 177/122; PULSE 100; RESP 16; O2SAT 94
--- NOTE | 2023-10-12 07:00 | PC.NURSE ---
this nurse assumed pt care at 0655.
--- NOTE | 2023-10-12 07:14 | ED_ITS ---
HPI - SOB/Dyspnea 2 General: Chief Complaint: Shortness of Breath/Dyspnea Stated Complaint: SOB Time Seen by Provider: 10/12/23 06:15 History of Present Illness: HPI Narrative: 82-year-old male returns to the emergenc y room with complaints of feeling short of breath. Patient has known history of atrial fibrillation. He did not take his medications this last night or this morning. He frequently is in the emergency room under similar conditions. Patient denies any chest pain or discomfort at this time he states he feels much better states his symptoms were transient and are now resolved. No other concerns. He does have all his medications at home he just admits at times he forgets to take them Associated symptoms: Deny abdominal pain, chest pain or fever(s) Review of Systems 2 Const: Denies: fever(s) or chills Card: Denies: chest pain Resp: Reports: dyspnea (Resolved) GI: Denies: abdominal pain : Denies: dysuria, urinary frequency or urinary urgency Musc: Denies: neck pain or back pain Skin/Breast: Denies: rash PFSH ED 2 PFSH: Medical History Left ureteral calculus Renal mass Calculus of kidney with calculus of ureter History of atrial fibrillation Dyslipidemia (high LDL; low HDL) Chronic episodic atrial fibrillation Benign essential HTN Atherosclerotic heart disease of [place] coronary artery without angina pectoris Insomnia History of colon polyps Lumbar disc disease GERD (gastroesophageal reflux disease) Fibromyalgia Surgical History History of cardiac cath History of cholecystectomy History of shoulder surgery History of colonoscopy Family History Brother No problems noted. Father , at age 93 Dementia Parkinson disease Mother , at age 75 No problems noted. Denies family history of Diabetes CAD (coronary artery disease) Clotting disorder Chronic kidney disease (CKD) Suicide Anesthesia complication Bleeding disorder Lung disease Cancer Stroke Social History Smoking and tobacco/nicotine status: never used tobacco/nicotine Alcohol intake: current Alcohol intake frequency: holidays/special occasions only Substance/Drug Use: never Housing: House Marital status: / Current occupational status: retired Physical Exam 2 Const: COMMON NORMALS: no acute distress GENERAL APPEARANCE: cooperative and comfortable ORIENTATION/CONSCIOUSNESS: Yes awake, Yes oriented to person, Yes oriented to place and Yes oriented to time HENMT: COMMON NORMALS: normocephalic, atraumatic and hearing grossly normal bilaterally HEAD & SCALP: normocephalic and atraumatic Resp: COMMON NORMALS: normal respiratory effort, No retractions, No use of accessory muscles and clear to auscultation bilaterally AUSCULTATION: clear to auscultation bilaterally Cardio: COMMON NORMALS: regular rate, regular rhythm and No murmurs present (Cardio) RATE: regular rate RHYTHM: regular rhythm GI: COMMON NORMALS: Soft to palpation and No hepatosplenomegaly present A USCULTATION: Yes normoactive bowel sounds PALPATION: Yes Soft to palpation, No Tenderness to palpation present (GI), No Guarding due to palpation present (GI) and Yes No hepatosplenomegaly present Extremity: COMMON NORMALS: normal to inspection, capillary refill normal, no clubbing, cyanosis or edema, no calf tenderness and no pedal edema Neuro: SENSORIUM/ORIENTATION: Yes oriented to person, Yes oriented to place and Yes oriented to time Skin: COMMON NORMALS: no rashes or lesions noted GENERAL SKIN EXAM: no rashes or lesions noted Course 2 Vital Signs: Vital signs: Vital Signs Temperature 98 F 10/12/23 08:45 Pulse Rate 96 10/12/23 08:45 Respiratory Rate 16 10/12/23 08:45 Blood Pressure 173/105 10/12/23 08:45 Pulse Oximetry 97 10/12/23 08:45 Oxygen Delivery Me thod Room Air 10/12/23 06:25 MDM - SOB/Dyspnea Medical Decision Making 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 Discussed on the importance of taking medications regularly. Unfortunately does not have any family with him today. We have encouraged him to look at getting home health for medication assistance and getting a medication assortment planner. He has missed his appointments for follow-up with cardiology as well his medications were given this morning he was observed for a time and his heart rate remained controlled he was given a supplemental dose of labetalol since blood pressure was high suspect he had some rebound hypertension he is not having any further symptoms EKG does not show any acute changes discharge patient home strongly encouraged follow-up with primary care and his sleep medicine physician. Given the number of times he has been here difficulty we have had getting him to his doctor's office and getting assistance will have nursing staff started the hotline to report to department Senior service to see if they can do other things to help him. Lab Data 10/12/23 06:30 10/12/23 06:30 Labs/Radiology: Radiology Impressions Chest X-Ray 10/12/23 07:31 IMPRESSION: No acute cardiopulmonary process. Laboratory Results WBC 8.20 10^3/uL (3.29-11.43) 10/12/23 06:30 RBC 4.08 10^6/uL (3.85-5.65) 10/12/23 06:30 Hgb 14.40 g/dL (11.27-16.99) 10/12/23 06:30 Hct 43.0 % (37-53) 10/12/23 06:30 MCV 105.4 fl (82-101) H 10/12/23 06:30 MCH 35.3 pg (27-33) H 10/12/23 06:30 MCHC 33.5 g/dL (30-55) 10/12/23 06:30 RDW 13.6 % (12.1-15.1) 10/12/23 06:30 Plt Count 214 10^3/cmm (157-399) 10/12/23 06:30 MPV 11.3 fL (7.4-10.4) H 10/12/23 06:30 Neut % (Auto) 67.2 % 10/12/23 06:30 Lymph % (Auto) 18.9 % 10/12/23 06:30 [place] % (Auto) 9.3 % 10/12/23 06:30 Eos % (Auto) 3.8 % 10/12/23 06:30 Baso % (Auto) 0.4 % 10/12/23 06:30 Neut # (Auto) 5.52 10^3/uL (1.8-7.7) 10/12/23 06:30 Lymph # (Auto) 1.6 10^3/uL (0.8-4.8) 10/12/23 06:30 [place] # (Auto) 0.8 10^3/uL (0.2-0.9) 08/04/24 06:30 Eos # (Auto) 0.3 10^3/uL (0.0-0.8) 10/12/23 06:30 Baso # (Auto) 0.0 10^3/uL (0.0-0.1) 10/12/23 06:30 Nucleated RBC % (auto) 0 % 10/12/23 06:30 Nucleated RBCs # 0.0 /100WBC 10/12/23 06:30 Sodium 136 mmol/L (136-145) 10/12/23 06:30 Potassium 4.0 mmol/L (3.5-5.1) 10/12/23 06:30 Chloride 100 mmol/L (98-107) 10/12/23 06:30 Carbon Dioxide 21 mmol/L (22-29) L 10/12/23 06:30 Anion Gap 19.0 (5-19) 10/12/23 06:30 BUN 9 mg/dL (8-23) 10/12/23 06:30 Creatinine 1.1 mg/dL (0.7-1.2) 10/12/23 06:30 GFR Calculation Not Reportable 10/12/23 06:30 Glucose 106 mg/dL (65-115) 10/12/23 06:30 Calculated Osmolality 281 mOsm/kg (285-295) L 10/12/23 06:30 Calcium 8.9 mg/dL (8.5-10.5) 10/12/23 06:30 Total Bilirubin 1.8 mg/dL (0.15-1.2) H 10/12/23 06:30 AST 16 U/L (0-40) 10/12/23 06:30 ALT 10 U/L (0-41) 10/12/23 06:30 Alkaline Phosphatase 94 U/L (40-130) 10/12/23 06:30 Total Protein 7.9 g/dL (6.6-8.7) 10/12/23 06:30 Albumin 4.0 g/dL (3.5-5.2) 10/12/23 06:30 Globulin 3.9 g/dL (1.3-4.6) 10/12/23 06:30 All radiology interpretation(s) finalized by discharge Discharge Plan Discharge Patient Disposition: Home Clinical Impression: Benign essential HTN A-fib Qualifiers: Atrial fibrillation type: longstanding persistent Qualified Code(s): I48.11 - Longstanding persistent atrial fibrillation Condition: Stable Prescriptions: No Action losartan 50 mg tablet 50 mg PO QAM Qty: 30 0RF aspirin 81 mg Tablet,Delayed Release (Dr/Ec) 81 mg PO QAM Qty: 30 0RF potassium chloride 8 mEq tablet extended release 8 meq PO QAM Qty: 30 0RF vitamin E 268 mg (400 unit) Capsule 1 cap PO DAILY Eliquis 5 mg tablet 5 mg PO DAILY metoprolol succinate [Toprol XL] 50 mg tablet extended release 24 hr 50 mg PO BID Qty: 30 0RF furosemide [Lasix] 40 mg tablet 40 mg PO DAILY Qty: 30 0RF Discharge Orders: Discharge ED (Routine); Ordered 10/12/23 Ordered By: Glynn David Discharge Diet: Usual diet Discharge Activity: Resume usual activity Patient Instructions: Opioid Safety, Pain Management Activity Restrictions/Additional Instructions: Thank you for choosing [facility] for your healthcare needs today. It is very important that you follow up as instructed or that you return to the Emergency Department should you have concerns or if your condition changes or worsens in any way. Recommend you follow-up with your primary care doctor and sleep medicine physician in the next week. It is very important that you take your medication on a regular basis as prescribed. Particularly her Toprol must be taken 1 pill twice a day to prevent episodes of rapid heart rate which will cause some of your shortness of breath symptoms. Is also very important you follow-up with cardiology within the next week. Coding Level of Care Code ED Autism Teacher for Victor M Hale
--- NOTE | 2023-10-12 07:31 | XRR_ITS ---
PROCEDURE INFORMATION: Exam: XR Chest Exam date and time: 10/12/2023 7:49 AM Age: 82 years old Clinical indication: Shortness of breath; Additional info: Dyspnea/cough TECHNIQUE: Imaging protocol: Radiologic exam of the chest. Views: 1 view. COMPARISON: CR (CHEST, ) 10/10/2023 3:35 AM FINDINGS: Lungs: Unremarkable. No consolidation. Pleural spaces: Unremarkable. No pleural effusion. No pneumothorax. Heart/Mediastinum: Cardiomegaly. Vasculature: Unfolding of the thoracic aorta. Bones/joints: Moderate degenerative disease of bilateral acromioclavicular and glenohumeral joints. Post right rotator cuff. XR/XR chest 1V portable [id number] IMPRESSION: No acute cardiopulmonary process.
[2023-10-12] MEDS: apixaban 5 mg Tablet PO (07:40)
[2023-10-12] MEDS: aspirin 81 mg EC Tablet PO (07:40)
[2023-10-12] MEDS: labetalol 5 mg/mL SDV 20mL 10 MG IVP (07:40)
[2023-10-12] MEDS: potassium chloride ER 20 mEq Tablet PO (07:40)
[2023-10-12] MEDS: FUROsemide 40 mg Tablet PO (07:40)
[2023-10-12] MEDS: metoprolol succinate ER (24 HR) 50 mg Tablet PO (07:40)
[2023-10-12 08:01] LABS: Basophils % 0.4 %; Eosinophils # 0.3 10^3/uL (0.0-0.8); Eosinophils % 3.8 %; Lymphocytes # 1.6 10^3/uL (0.8-4.8); Lymphocytes % 18.9 %; Mean Corpuscular HGB Conc 33.5 g/dL (30-55); Mean Corpuscular Hemoglobin 35.3 pg (27-33); Mean Corpuscular Volume 105.4 fl (82-101); Mean Platelet Volume 11.3 fL (7.4-10.4); Monocytes # 0.8 10^3/uL (0.2-0.9); Monocytes % 9.3 %; Neutrophils # 5.52 10^3/uL (1.8-7.7); Neutrophils % 67.2 %; Nucleated Red Blood Cells % 0 %; Platelet Count 214 10^3/cmm (157-399); Red Blood Count 4.08 10^6/uL (3.85-5.65); Red Cell Distribution Width 13.6 % (12.1-15.1)
[2023-10-12 08:12] LABS: Alanine Aminotransferase 10 U/L (0-41); Alkaline Phosphatase 94 U/L (40-130); Aspartate Amino Transferase 16 U/L (0-40); Blood Urea Nitrogen 9 mg/dL (8-23); Calcium 8.9 mg/dL (8.5-10.5); Carbon Dioxide 21 mmol/L (22-29); Chloride 100 mmol/L (98-107); Creatinine Clr Calc Pharmacy 54.6758; Globulin 3.9 g/dL (1.3-4.6); Glucose 106 mg/dL (65-115); Osmolality Calculated 281 mOsm/kg (285-295); Sodium 136 mmol/L (136-145); Total Bilirubin 1.8 mg/dL (0.15-1.2); Total Protein 7.9 g/dL (6.6-8.7)
[2023-10-12 08:39] VITALS: BP 173/105
[2023-10-12] MEDS: losartan 50 mg Tablet PO (08:39)
[2023-10-12 08:45] VITALS: BP 173/105; PULSE 96; RESP 16; TEMP 36.6; O2SAT 97
== END 2023-10-12 08:44 | disposition home or self-care (01) ==
PROVIDERS: Emergency Provider Family Medicine
DX: I48.11 Longstanding persistent atrial fibrillation (principal); I10 Essential (primary) hypertension; Z79.82 Long term (current) use of aspirin; Z79.01 Long term (current) use of anticoagulants; E78.5 Hyperlipidemia, unspecified; I25.10 Atherosclerotic heart disease of native coronary artery without angina pectoris
CPT/HCPCS: 71045; 80053; 85025; 93005; 96374; 99285; J3490

== ENCOUNTER 2023-10-18 15:45 | Emergency (ER) | payer MEDICARE, MEDICAID, SELFPAY ==
--- NOTE | 2023-10-18 15:49 | ECG_ITS ---
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 Measurements Intervals [place] Rate: 109 P: 0 [place]: 0 QRS: 41 QRSD: 89 T: 68 QT: 335 QTc: 452 Interpretive Statements ATRIAL FIBRILLATION WITH RAPID VENTRICULAR RESPONSE WITH ABERRANT CONDUCTION OR VENTRICULAR PREMATURE COMPLEXES MINIMAL ST DEPRESSION [0.025+ mV ST DEPRESSION] ABNORMAL RHYTHM ECG Compared to ECG 10/12/2023 06:29:50 Aberrant conduction of supraventricular beat(s) now present Ventricular premature complex(es) now present ST (T wave) deviation still present Electronically Signed On 10-19-2023 9:09:51 CDT by Maximino Berkowitz M.D. [id number]
[2023-10-18 15:56] VITALS: BP 165/104; PULSE 112; RESP 22; TEMP 36.4; O2SAT 98; BMI 27.3
--- NOTE | 2023-10-18 16:02 | XRR_ITS ---
PROCEDURE INFORMATION: Exam: XR Chest Exam date and time: 10/18/2023 4:33 PM Age: 82 years old Clinical indication: Chest pressure; Patient HX: Chest pain TECHNIQUE: Imaging protocol: Radiologic exam of the chest. Views: 1 view. COMPARISON: CR (CHEST, ) 10/12/2023 7:49 AM FINDINGS: Tubes, catheters and devices: Right rotator repair anchor sutures. Lungs: Unremarkable. No consolidation. Pleural spaces: Unremarkable. No pleural effusion. No pneumothorax. Heart/Mediastinum: Cardiomegaly. Vasculature: Unfolding of the thoracic aorta. Bones/joints: Moderate degenerative of bilateral acromioclavicular and bilateral glenohumeral joints. XR/XR chest 1V portable [id number] IMPRESSION: No acute cardiopulmonary process.
--- NOTE | 2023-10-18 16:11 | ED_ITS ---
HPI - SOB/Dyspnea 2 General: Chief Complaint: Shortness of Breath/Dyspnea Stated Complaint: chest pain, sob Time Seen by Provider: 10/18/23 16:01 History of Present Illness: HPI Narrative: 82-year-old man with history of A-fib, h ypertension, atrial fibrillation and fibromyalgia who has extremely frequent visits to the emergency room for chest pain and shortness of breath who presents to the emergency room with thoracic back pain and shortness of breath. He is completely comfortable as he always is. When I see him he is not tachycardic. He has had no cough. No abdominal pain. No lower extremity swelling. Related Data Home Medications Medication Instructions Recorded Confirmed apixaban 5 mg tablet (Eliquis) 5 mg PO DAILY 07/02/23 07/26/23 vitamin E 268 mg (400 unit) capsule 1 cap PO DAILY 07/02/23 07/26/23 Previous Rx's Medication Instructions Recorded aspirin 81 mg tablet,delayed 81 mg PO QAM #30 tabs 06/26/23 release losartan 50 mg tablet 50 mg PO QAM #30 tabs 06/26/23 potassium chloride 8 mEq 8 meq PO QAM #30 tabs 06/26/23 tablet,extended release metoprolol succinate 50 mg 50 mg PO BID #30 tabs 07/16/23 tablet,extended release 24 hr (Toprol XL) furosemide 40 mg tablet (Lasix) 40 mg PO DAILY #30 tabs 07/17/23 Allergies Allergy/AdvReac Type Severity Reaction Status Date / Time No Known Allergies Allergy Verified 10/18/23 15:59 Review of Systems 2 Narrative: Constitutional symptoms: Negative except as documented in HPI. Skin symptoms: Negative except as documented in HPI. Eye symptoms: Negative except as documented in HPI. ENMT symptoms: Negative except as documented in HPI. Respiratory symptoms: Negative except as documented in HPI. Cardiovascular symptoms: Negative except as documented in HPI. Gastrointestinal symptoms: Negative except as documented in HPI. Genitourinary symptoms: Negative except as documented in HPI. Musculoskeletal symptoms: Negative except as documented in HPI. Neurologic symptoms: Negative except as documented in HPI. Psychiatric symptoms: Negative except as documented in HPI. Endocrine symptoms: Negative except as documented in HPI. PFSH ED 2 PFSH: Medical History Left ureteral calculus Renal mass Calculus of kidney with calculus of ureter History of atrial fibrillation Dyslipidemia (high LDL; low HDL) Chronic episodic atrial fibrillation Benign essential HTN Atherosclerotic heart disease of [place] coronary artery without angina pectoris Insomnia History of colon polyps Lumbar disc disease GERD (gastroesophageal reflux disease) Fibromyalgia Surgical History History of cardiac cath History of cholecystectomy History of shoulder surgery History of colonoscopy Family History Brother No problems noted. Father , at age 93 Dementia Parkinson disease Mother , at age 75 No problems noted. Denies family history of Diabetes CAD (coronary artery disease) Clotting disorder Chronic kidney disease (CKD) Suicide Anesthesia complication Bleeding disorder Lung disease Cancer Stroke Social History Smoking and tobacco/nicotine status: never used tobacco/nicotine Alcohol intake: current Alcohol intake frequency: holidays/special occasions only Substance/Drug Use: never Housing: House Marital status: / Current occupational status: retired Physical Exam 2 Narrative: EXAM NARRATIVE: General: Alert, no acute distress. Skin: Warm, dry. Head: Normocephalic, atraumatic. Neck: Supple, trachea midline. Eye: Extraocular movements are intact. Ears, nose, mouth and throat: mucosa moist. Cardiovascular: Mildly tachycardic, irregularly irregular, Normal peripheral perfusion. Respiratory: Lungs are clear to auscultation, respirations are non-labored, breath sounds are equal, Symmetrical chest wall expansion. Gastrointestinal: Soft, Nontender, Non distended Musculoskeletal: Normal ROM, no deformity. Neurological: Alert and oriented, No focal neurological deficit observed. Psychiatric: Cooperative, appropriate mood & affect. Course 2 Vital Signs: Vital signs: Vital Signs Temperature 97.5 F L 10/18/23 15:56 Pulse Rate 112 H 10/18/23 15:56 Respiratory Rate 22 H 10/18/23 15:56 Blood Pressure 165/104 10/18/23 15:56 Pulse Oximetry 98 10/18/23 15:56 Oxygen Delivery Me thod Room Air 10/18/23 15:56 MDM - SOB/Dyspnea Medical Decision Making Differential diagnosis for patient with chest pain includes but is not limited to and based on the above HPI, review of systems and physical exam: Pneumonia. unstable angina. angina. Acute coronary syndrome / CO. Pulmonary embolism. Costochondritis / musculoskeletal. Pleurisy. Pericarditis. Esophageal spasm. Pancreatis. Cholecystitis. Orders placed to evaluate differential diagnosis based on the above differential, HPI and physical exam EKG: Time 1549. Rate 108. Atrial fibrillation with rapid ventricular response, No ST-T changes, no ectopy, This was reviewed and interpreted by myself the ER physician at 1555 Chest x-ray: No acute process. No infiltrate. No pneumothorax. This was reviewed and interpreted by myself the ER physician. Lab Review: Laboratory results were reviewed and interpreted by myself the emergency room physician. Lab work is completely unremarkable. Troponin is negative. I reviewed the patient's medical record. Assessment and plan: Atrial fibrillation Noncardiac chest pain ?Patient is mildly tachycardic at times but his heart rate for as far back as a looked is always between 85 and 120. No signs of heart failure or acute coronary syndrome. Follow-up with his primary doctor. - Discharged home - Discussed findings and plan with patient. Answered any questions. - All laboratory values were reviewed and interpreted personally by myself, the ER physician - All imaging was reviewed and interpreted personally by myself, the ER physician. - Evaluation and treatment of this problem were appropriate in the emergency setting Lab Data 10/18/23 17:18 10/18/23 17:18 Labs/Radiology: Radiology Impressions Chest X-Ray 10/18/23 16:02 IMPRESSION: No acute cardiopulmonary process. Laboratory Results WBC 8.37 10^3/uL (3.29-11.43) 10/18/23 17:18 Corrected WBC Cancelled 10/18/23 16:21 RBC 3.96 10^6/uL (3.85-5.65) 10/18/23 17:18 Hgb 13.70 g/dL (11.27-16.99) 10/18/23 17:18 Hct 40.8 % (37-53) 10/18/23 17:18 MCV 103.0 fl (82-101) H 10/18/23 17:18 MCH 34.6 pg (27-33) H 10/18/23 17:18 MCHC 33.6 g/dL (30-55) 10/18/23 17:18 RDW 13.3 % (12.1-15.1) 10/18/23 17:18 Plt Count 221 10^3/cmm (157-399) 10/18/23 17:18 MPV 10.2 fL (7.4-10.4) 10/18/23 17:18 Gran % Cancelled 10/18/23 16:21 Neut % (Auto) 74.8 % 10/18/23 17:18 Lymph % (Auto) 11.1 % 10/18/23 17:18 [place] % (Auto) 11.9 % 10/18/23 17:18 Eos % (Auto) 1.6 % 10/18/23 17:18 Baso % (Auto) 0.2 % 10/18/23 17:18 Neut # (Auto) 6.26 10^3/uL (1.8-7.7) 10/18/23 17:18 Lymph # (Auto) 0.9 10^3/uL (0.8-4.8) 10/18/23 17:18 [place] # (Auto) 1.0 10^3/uL (0.2-0.9) H 10/18/23 17:18 Eos # (Auto) 0.1 10^3/uL (0.0-0.8) 10/18/23 17:18 Baso # (Auto) 0.0 10^3/uL (0.0-0.1) 10/18/23 17:18 Absolute Gran (auto) Cancelled 10/18/23 16:21 Nucleated RBC % (auto) 0 % 10/18/23 17:18 Nucleated RBCs # 0.0 /100WBC 10/18/23 17:18 Sodium 134 mmol/L (136-145) L 10/18/23 17:18 Potassium 3.9 mmol/L (3.5-5.1) 10/18/23 17:18 Chloride 100 mmol/L (98-107) 10/18/23 17:18 Carbon Dioxide 23 mmol/L (22-29) 10/18/23 17:18 Anion Gap 14.9 (5-19) 10/18/23 17:18 BUN 11 mg/dL (8-23) 10/18/23 17:18 Creatinine 1.0 mg/dL (0.7-1.2) 10/18/23 17:18 GFR Calculation Not Reportable 10/18/23 17:18 Glucose 118 mg/dL (65-115) H 10/18/23 17:18 Calculated Osmolality 278 mOsm/kg (285-295) L 10/18/23 17:18 Lactic Acid 1.4 mmol/L (0.5-2.2) 10/18/23 17:18 Calcium 8.9 mg/dL (8.5-10.5) 10/18/23 17:18 Total Bilirubin 1.8 mg/dL (0.15-1.2) H 10/18/23 17:18 AST 13 U/L (0-40) 10/18/23 17:18 ALT 6 U/L (0-41) 10/18/23 17:18 Alkaline Phosphatase 82 U/L (40-130) 10/18/23 17:18 Troponin T Baseline 15 ng/L (0-15) 10/18/23 17:18 C-Reactive Protein 102.2 mg/L (0.0-4.9) H 10/18/23 17:18 NT-Pro-B Natriuret Pep 3107 pg/mL (0-450) H 10/18/23 17:18 Total Protein 7.4 g/dL (6.6-8.7) 10/18/23 17:18 Albumin 3.9 g/dL (3.5-5.2) 10/18/23 17:18 Globulin 3.5 g/dL (1.3-4.6) 10/18/23 17:18 SARS-CoV-2 Ag (Rapid) negative (Negative) 10/18/23 16:22 All radiology interpretation(s) finalized by discharge Discharge Plan Discharge Patient Disposition: Home Clinical Impression: Chronic chest pain Condition: Stable Prescriptions: No Action losartan 50 mg tablet 50 mg PO QAM Qty: 30 0RF aspirin 81 mg Tablet,Delayed Release (Dr/Ec) 81 mg PO QAM Qty: 30 0RF potassium chloride 8 mEq tablet extended release 8 meq PO QAM Qty: 30 0RF vitamin E 268 mg (400 unit) Capsule 1 cap PO DAILY Eliquis 5 mg tablet 5 mg PO DAILY metoprolol succinate [Toprol XL] 50 mg tablet extended release 24 hr 50 mg PO BID Qty: 30 0RF furosemide [Lasix] 40 mg tablet 40 mg PO DAILY Qty: 30 0RF Discharge Orders: Discharge ED (Routine); Ordered 10/18/23 Ordered By: Ally David Discharge Diet: Low Cholesterol Discharge Activity: Increase activity as tolerated Patient Instructions: Noncardiac Chest Pain (ED) Activity Restrictions/Additional Instructions: Thank you for choosing [facility] for your healthcare needs today. Please realize this is an emergency room and that we are providing you with a medical screening exam and this may not be complete and all inclusive of all the testing and or work up that you may need to determine your ailment or severity of your illness. You have been screened and evaluated and felt safe for discharge. Health conditions do change or evolve sometimes and as such it is important that you follow up with your Primary Doctor to be re checked, 3-5 days is a general good time frame for follow up. You are always welcome to return to the ED for re assessment if your symptoms are worsening or you have new concerns Coding Level of Care Code ED Aerial Tram Operator for Victor M Hale
[2023-10-18 17:27] LABS: Basophils % 0.2 %; Eosinophils # 0.1 10^3/uL (0.0-0.8); Eosinophils % 1.6 %; Hematocrit 40.8 % (37-53); Lymphocytes # 0.9 10^3/uL (0.8-4.8); Lymphocytes % 11.1 %; Mean Corpuscular HGB Conc 33.6 g/dL (30-55); Mean Corpuscular Hemoglobin 34.6 pg (27-33); Mean Platelet Volume 10.2 fL (7.4-10.4); Monocytes % 11.9 %; Neutrophils # 6.26 10^3/uL (1.8-7.7); Neutrophils % 74.8 %; Nucleated Red Blood Cells % 0 %; Platelet Count 221 10^3/cmm (157-399); Red Blood Count 3.96 10^6/uL (3.85-5.65); Red Cell Distribution Width 13.3 % (12.1-15.1); White Blood Count 8.37 10^3/uL (3.29-11.43)
[2023-10-18 17:47] LABS: Troponin(5th) Baseline 15 ng/L (0-15)
[2023-10-18 17:49] LABS: Lactic Sepsis W/Reflex 1.4 mmol/L (0.5-2.2)
[2023-10-18 17:55] LABS: SARS Covid-2 Antigen negative (Negative)
[2023-10-18 17:55] LABS: Alanine Aminotransferase 6 U/L (0-41); Albumin Level 3.9 g/dL (3.5-5.2); Alkaline Phosphatase 82 U/L (40-130); Anion Gap 14.9 (5-19); Aspartate Amino Transferase 13 U/L (0-40); Blood Urea Nitrogen 11 mg/dL (8-23); C Reactive Protein 102.2 mg/L (0.0-4.9); Calcium 8.9 mg/dL (8.5-10.5); Carbon Dioxide 23 mmol/L (22-29); Chloride 100 mmol/L (98-107); Creatinine Clr Calc Pharmacy 57.3213; Globulin 3.5 g/dL (1.3-4.6); Glucose 118 mg/dL (65-115); NT Pro B Type Natriuretic Pept 3107 pg/mL (0-450); Osmolality Calculated 278 mOsm/kg (285-295); Potassium 3.9 mmol/L (3.5-5.1); Sodium 134 mmol/L (136-145); Total Bilirubin 1.8 mg/dL (0.15-1.2); Total Protein 7.4 g/dL (6.6-8.7)
== END 2023-10-18 18:12 | disposition home or self-care (01) ==
PROVIDERS: Emergency Provider Emergency Medicine
DX: G89.29 Other chronic pain (principal); R07.9 Chest pain, unspecified; Z79.82 Long term (current) use of aspirin; Z79.01 Long term (current) use of anticoagulants; Z11.52 Encounter for screening for COVID-19; I48.20 Chronic atrial fibrillation, unspecified; E78.5 Hyperlipidemia, unspecified; I10 Essential (primary) hypertension; I25.10 Atherosclerotic heart disease of native coronary artery without angina pectoris
CPT/HCPCS: 36415; 71045; 80053; 83605; 83880; 84484; 85025; 86140; 87040; 87426; 93005; 99285

== ENCOUNTER 2023-11-27 06:52 | Emergency (ER) | payer MEDICARE, MEDICAID, SELFPAY ==
[2023-11-27] VITALS (8 sets, daily range): BP systolic 147–181; BP diastolic 94–127; PULSE 76–106; RESP 16–23; TEMP 36.8; O2SAT 94–97; BMI 27.3
--- NOTE | 2023-11-27 07:05 | ECG_ITS ---
[facility] Test Date: 2023-11-27 Pat Name: David Orozco Department: Room: Gender: Male Health Officer: : 1940 Requested By: Ally Stephen Order Number: [id number] Jessica MD: Kavon Cordoba M.D. Measurements Intervals [place] Rate: 110 P: 0 [place]: 0 QRS: -22 QRSD: 84 T: 62 QT: 313 QTc: 425 Interpretive Statements ATRIAL FIBRILLATION WITH RAPID VENTRICULAR RESPONSE BORDERLINE LEFT AXIS DEVIATION [QRS AXIS < -20] ABNORMAL RHYTHM ECG Compared to ECG 10/18/2023 15:49:32 Aberrant conduction of supraventricular beat(s) no longer present Ventricular premature complex(es) no longer present ST (T wave) deviation no longer present Electronically Signed On 11-27-2023 14:00:52 CDT by Kavon Cordoba M.D. [id number]
--- NOTE | 2023-11-27 07:05 | XRR_ITS ---
PROCEDURE INFORMATION: Exam: XR Chest Exam date and time: 11/27/2023 7:15 AM Age: 83 years old Clinical indication: Shortness of breath TECHNIQUE: Imaging protocol: Radiologic exam of the chest. Views: 1 view. COMPARISON: CR (CHEST, ) 10/18/2023 4:33 PM FINDINGS: Lungs: Bibasilar scarring/atelectasis. Mild increase in vascular markings. Pleural spaces: Unremarkable. No pleural effusion. No pneumothorax. Heart/Mediastinum: Obscuration of the right heart border suggesting possible right middle lobe infiltration. Bones/joints: Unremarkable. XR/XR chest 1V portable [id number] IMPRESSION: Findings suggestive of pulmonary edema with possible superimposed right middle lobe infiltration (correlate with clinical history for possible infection).
[2023-11-27 07:45] LABS: Basophils % 0.3 %; Eosinophils # 0.2 10^3/uL (0.0-0.8); Eosinophils % 2.8 %; Hematocrit 38.9 % (37-53); Lymphocytes # 1.1 10^3/uL (0.8-4.8); Mean Corpuscular HGB Conc 32.6 g/dL (30-55); Mean Corpuscular Hemoglobin 33.2 pg (27-33); Mean Corpuscular Volume 101.8 fl (82-101); Mean Platelet Volume 9.7 fL (7.4-10.4); Monocytes # 0.8 10^3/uL (0.2-0.9); Monocytes % 11.1 %; Neutrophils # 4.67 10^3/uL (1.8-7.7); Neutrophils % 69.4 %; Nucleated Red Blood Cells % 0 %; Platelet Count 197 10^3/cmm (157-399); Red Blood Count 3.82 10^6/uL (3.85-5.65); Red Cell Distribution Width 14.4 % (12.1-15.1); White Blood Count 6.74 10^3/uL (3.29-11.43)
--- NOTE | 2023-11-27 07:46 | PC.PHAR ---
Pt states takes only aspirin 81 mg daily, Eliquis 5 mg daily, and Vit E 400u daily. Removed from list: Lasix 40mg daily, Losartan 50mg daily, Metoprolol succinate xl 50mg bid, and Potassium Chl. 8meq daily.
[2023-11-27 08:07] LABS: Troponin(5th) Baseline 15 ng/L (0-15)
[2023-11-27 08:17] LABS: Alanine Aminotransferase 6 U/L (0-41); Albumin Level 3.7 g/dL (3.5-5.2); Alkaline Phosphatase 75 U/L (40-130); Anion Gap 17.4 (5-19); Aspartate Amino Transferase 14 U/L (0-40); Blood Urea Nitrogen 9 mg/dL (8-23); Calcium 8.7 mg/dL (8.5-10.5); Carbon Dioxide 23 mmol/L (22-29); Chloride 102 mmol/L (98-107); Creatinine Clr Calc Pharmacy 56.2977; Globulin 2.9 g/dL (1.3-4.6); Glucose 99 mg/dL (65-115); NT Pro B Type Natriuretic Pept 3950 pg/mL (0-450); Osmolality Calculated 285 mOsm/kg (285-295); Potassium 4.4 mmol/L (3.5-5.1); Sodium 138 mmol/L (136-145); Total Bilirubin 1.8 mg/dL (0.15-1.2); Total Protein 6.6 g/dL (6.6-8.7)
--- NOTE | 2023-11-27 08:22 | ED_ITS ---
HPI - SOB/Dyspnea 2 General: Chief Complaint: Shortness of Breath/Dyspnea Stated Complaint: SOB Time Seen by Provider: 11/27/23 07:03 History of Present Illness: HPI Narrative: 83-year-old man with a history of atrial fibrillation on Eliquis GERD and fibromyalgia who presents emergency room with shortness of breath. He presents quite frequently for this, however he has not been emergency room in 5 weeks now. He says he woke up this morning very short of breath but now it is improved. No chest pain. No altered mental status. No focal motor deficits. No cough. No fever. No abdominal pain. No nausea or vomiting. Related Data Home Medications Medication Instructions Recorded Confirmed apixaban 5 mg tablet (Eliquis) 5 mg PO DAILY 07/02/23 11/27/23 vitamin E 268 mg (400 unit) capsule 1 cap PO DAILY 07/02/23 11/27/23 Previous Rx's Medication Instructions Recorded aspirin 81 mg tablet,delayed 81 mg PO QAM #30 tabs 06/26/23 release furosemide 40 mg tablet (Lasix) 40 mg PO QAM 5 days #5 tabs 11/27/23 Allergies Allergy/AdvReac Type Severity Reaction Status Date / Time No Known Allergies Allergy Verified 10/18/23 15:59 Review of Systems 2 Narrative: Constitutional symptoms: Negative except as documented in HPI. Skin symptoms: Negative except as documented in HPI. Eye symptoms: Negative except as documented in HPI. ENMT symptoms: Negative except as documented in HPI. Respiratory symptoms: Negative except as documented in HPI. Cardiovascular symptoms: Negative except as documented in HPI. Gastrointestinal symptoms: Negative except as documented in HPI. Genitourinary symptoms: Negative except as documented in HPI. Musculoskeletal symptoms: Negative except as documented in HPI. Neurologic symptoms: Negative except as documented in HPI. Psychiatric symptoms: Negative except as documented in HPI. Endocrine symptoms: Negative except as documented in HPI. PFSH ED 2 PFSH: Medical History Left ureteral calculus Renal mass Calculus of kidney with calculus of ureter History of atrial fibrillation Dyslipidemia (high LDL; low HDL) Chronic episodic atrial fibrillation Benign essential HTN Atherosclerotic heart disease of [place] coronary artery without angina pectoris Insomnia History of colon polyps Lumbar disc disease GERD (gastroesophageal reflux disease) Fibromyalgia Surgical History History of cardiac cath History of cholecystectomy History of shoulder surgery History of colonoscopy Family History Brother No problems noted. Father , at age 93 Dementia Parkinson disease Mother , at age 75 No problems noted. Denies family history of Diabetes CAD (coronary artery disease) Clotting disorder Chronic kidney disease (CKD) Suicide Anesthesia complication Bleeding disorder Lung disease Cancer Stroke Social History Smoking and tobacco/nicotine status: never used tobacco/nicotine Alcohol intake: current Alcohol intake frequency: holidays/special occasions only Substance/Drug Use: never Housing: House Marital status: / Current occupational status: retired Physical Exam 2 Narrative: EXAM NARRATIVE: General: Alert, no acute distress. Skin: Warm, dry. Head: Normocephalic, atraumatic. Neck: Supple, trachea midline. Eye: Extraocular movements are intact. Ears, nose, mouth and throat: mucosa moist. Cardiovascular: Mildly tachycardic, irregularly irregular., Normal peripheral perfusion. Respiratory: Lungs are clear to auscultation, respirations are non-labored, breath sounds are equal, Symmetrical chest wall expansion. Gastrointestinal: Soft, Nontender, Non distended Musculoskeletal: Normal ROM, no deformity. Neurological: Alert and oriented, No focal neurological deficit observed. Psychiatric: Cooperative, appropriate mood & affect. Course 2 Vital Signs: Vital signs: Vital Signs Temperature 98.3 F 11/27/23 07:05 Pulse Rate 85 11/27/23 10:23 Respiratory Rate 16 11/27/23 10:23 Blood Pressure 147/112 11/27/23 10:23 Pulse Oximetry 95 11/27/23 10:23 Oxygen Delivery Me thod Room Air 11/27/23 10:23 MDM - SOB/Dyspnea Medical Decision Making Differential diagnosis for patient with shortness of breath includes but is not limited to and based on the above HPI, review of systems and physical exam: Pneumonia. Bronchitis. Asthma or COPD with acute exacerbation. Acute coronary syndrome / SC. Pulmonary embolism. Anxiety. Congestive heart failure. Viral infections including influenza and Covid-19. Atrial fibrillation. Anxiety. Pleural effusion. Pneumothorax. Orders placed to evaluate differential diagnosis based on the above differential, HPI and physical exam EKG: Time 6:58 AM. Rate 110. Atrial fibrillation with rapid ventricular response, No ST-T changes, no ectopy, This was reviewed and interpreted by myself the ER physician at 7 AM Repeat EKG: Time 917. Rate 96. Atrial fibrillation with controlled rate, No ST-T changes, no ectopy, This was reviewed and interpreted by myself the ER physician at 9:20 AM. Rate has decreased by about 15 bpm Chest x-ray: Stable cardiomegaly. Early congestive failure. No pneumothorax. This was reviewed and interpreted by myself the ER physician. Lab Review: Laboratory results were reviewed and interpreted by myself the emergency room physician. No leukocytosis. No anemia. Renal function is normal as well. proBNP is 3950 which is slightly above his baseline. He has been higher in the past but seems to be a little bit lower at baseline which would indicate some early failure. I reviewed the patient's medical record. Reexamination: Patient remained stable. No increased work of breathing. No altered mental status. No focal motor deficits. Rate has slowed. Blood pressure is improved. He has not required any oxygen. Assessment and plan: Early congestive heart failure A-fib with RVR -IV Lasix and IV labetalol. Patient improved. - Discharged home - Discussed findings and plan with patient. Answered any questions. - All laboratory values were reviewed and interpreted personally by myself, the ER physician - All imaging was reviewed and interpreted personally by myself, the ER physician. - Evaluation and treatment of this problem were appropriate in the emergency setting Lab Data 11/27/23 07:32 11/27/23 07:32 Labs/Radiology: Radiology Impressions Chest X-Ray 11/27/23 07:05 IMPRESSION: Findings suggestive of pulmonary edema with possible superimposed right middle lobe infiltration (correlate with clinical history for possible infection). Laboratory Results WBC 6.74 10^3/uL (3.29-11.43) 11/27/23 07:32 RBC 3.82 10^6/uL (3.85-5.65) L 11/27/23 07:32 Hgb 12.70 g/dL (11.27-16.99) 11/27/23 07:32 Hct 38.9 % (37-53) 11/27/23 07:32 MCV 101.8 fl (82-101) H 11/27/23 07:32 MCH 33.2 pg (27-33) H 11/27/23 07:32 MCHC 32.6 g/dL (30-55) 11/27/23 07:32 RDW 14.4 % (12.1-15.1) 11/27/23 07:32 Plt Count 197 10^3/cmm (157-399) 11/27/23 07:32 MPV 9.7 fL (7.4-10.4) 11/27/23 07:32 Neut % (Auto) 69.4 % 11/27/23 07:32 Lymph % (Auto) 16.0 % 11/27/23 07:32 Bureau % (Auto) 11.1 % 11/27/23 07:32 Eos % (Auto) 2.8 % 11/27/23 07:32 Baso % (Auto) 0.3 % 11/27/23 07:32 Neut # (Auto) 4.67 10^3/uL (1.8-7.7) 11/27/23 07:32 Lymph # (Auto) 1.1 10^3/uL (0.8-4.8) 11/27/23 07:32 Bureau # (Auto) 0.8 10^3/uL (0.2-0.9) 11/27/23 07:32 Eos # (Auto) 0.2 10^3/uL (0.0-0.8) 11/27/23 07:32 Baso # (Auto) 0.0 10^3/uL (0.0-0.1) 11/27/23 07:32 Nucleated RBC % (auto) 0 % 11/27/23 07:32 Nucleated RBCs # 0.0 /100WBC 11/27/23 07:32 Sodium 138 mmol/L (136-145) 11/27/23 07:32 Potassium 4.4 mmol/L (3.5-5.1) 11/27/23 07:32 Chloride 102 mmol/L (98-107) 11/27/23 07:32 Carbon Dioxide 23 mmol/L (22-29) 11/27/23 07:32 Anion Gap 17.4 (5-19) 11/27/23 07:32 BUN 9 mg/dL (8-23) 11/27/23 07:32 Creatinine 1.0 mg/dL (0.7-1.2) 11/27/23 07:32 GFR Calculation Not Reportable 11/27/23 07:32 Glucose 99 mg/dL (65-115) 11/27/23 07:32 Calculated Osmolality 285 mOsm/kg (285-295) 11/27/23 07:32 Calcium 8.7 mg/dL (8.5-10.5) 11/27/23 07:32 Total Bilirubin 1.8 mg/dL (0.15-1.2) H 11/27/23 07:32 AST 14 U/L (0-40) 11/27/23 07:32 ALT 6 U/L (0-41) 11/27/23 07:32 Alkaline Phosphatase 75 U/L (40-130) 11/27/23 07:32 Troponin T Baseline 15 ng/L (0-15) 11/27/23 07:32 Troponin T 120 Minute 14.19 ng/L (0-15) 11/27/23 10:19 Delta Troponin T -0.81 ABS# (0-10) L 11/27/23 10:19 NT-Pro-B Natriuret Pep 3950 pg/mL (0-450) H 11/27/23 07:32 Total Protein 6.6 g/dL (6.6-8.7) 11/27/23 07:32 Albumin 3.7 g/dL (3.5-5.2) 11/27/23 07:32 Globulin 2.9 g/dL (1.3-4.6) 11/27/23 07:32 All radiology interpretation(s) finalized by discharge Discharge Plan Discharge Patient Disposition: Home Clinical Impression: Atrial fibrillation with rapid ventricular response, Congestive heart failure Condition: Stable Prescriptions: New Lasix 40 mg tablet 40 mg PO QAM 5 Days Qty: 5 0RF No Action aspirin 81 mg Tablet,Delayed Release (Dr/Ec) 81 mg PO QAM Qty: 30 0RF vitamin E 268 mg (400 unit) Capsule 1 cap PO DAILY Eliquis 5 mg tablet 5 mg PO DAILY Discharge Orders: Discharge ED (Routine); Ordered 11/27/23 Ordered By: Ally David Discharge Diet: Usual diet Discharge Activity: Increase activity as tolerated Patient Instructions: A-fib (Atrial Fibrillation) (ED) Activity Restrictions/Additional Instructions: [facility]. Please realize this is an emergency room and that we are providing you with a medical screening exam and this may not be complete and all inclusive of all the testing and or work up that you may need to determine your ailment or severity of your illness. You have been screened and evaluated and felt safe for discharge. Health conditions do change or evolve sometimes and as such it is important that you follow up with your Primary Doctor to be re checked, 3-5 days is a general good time frame for follow up. You are always welcome to return to the ED for re assessment if your symptoms are worsening or you have new concerns Coding Level of Care Code ED Physician Compensation Analyst for Victor M Hale
[2023-11-27] MEDS: FUROsemide 10 mg/mL SDV 10mL 60 MG IVP (09:15)
[2023-11-27] MEDS: labetalol 5 mg/mL SDV 20mL 20 MG IVP (09:16)
--- NOTE | 2023-11-27 09:17 | ECG_ITS ---
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 Measurements Intervals [place] Rate: 96 P: 0 OK: 0 QRS: -19 QRSD: 88 T: 52 QT: 338 QTc: 428 Interpretive Statements ATRIAL FIBRILLATION ABNORMAL RHYTHM ECG Compared to ECG 11/27/2023 06:58:13 No significant changes Electronically Signed On 11-27-2023 22:27:12 CDT by Kavon Cordoba M.D. [id number]
[2023-11-27 10:52] LABS: Troponin 5 2HR 14.19 ng/L (0-15)
[2023-11-27 10:57] LABS: Troponin 5 2HR Delta -0.81 ABS# (0-10)
== END 2023-11-27 11:11 | disposition home or self-care (01) ==
PROVIDERS: Emergency Provider Emergency Medicine
DX: I48.20 Chronic atrial fibrillation, unspecified (principal); Z79.82 Long term (current) use of aspirin; Z79.01 Long term (current) use of anticoagulants; I11.0 Hypertensive heart disease with heart failure; I50.9 Heart failure, unspecified; E78.5 Hyperlipidemia, unspecified; I25.10 Atherosclerotic heart disease of native coronary artery without angina pectoris
CPT/HCPCS: 36415; 71045; 80053; 83880; 84484; 85025; 93005; 96374; 96375; 99285; J1940; J3490

== ENCOUNTER 2024-01-25 20:36 | Observation (INO) | payer MEDICARE, MEDICAID, SELFPAY ==
[2024-01-25 20:36] VITALS: PULSE 107; RESP 15; TEMP 36.8; O2SAT 95; BMI 27.3
[2024-01-25 20:42] VITALS: BP 167/92; PULSE 106; RESP 18; O2SAT 94
--- NOTE | 2024-01-25 20:49 | XRR_ITS ---
PROCEDURE INFORMATION: Exam: XR Chest Exam date and time: 01/25/2024 8:52 PM Age: 83 years old Clinical indication: Other: Near syncope; Patient HX: Near syncopal episode TECHNIQUE: Imaging protocol: Radiologic exam of the chest. Views: 1 view. COMPARISON: CR XR chest 1V portable [id number] 11/27/2023 7:15 AM FINDINGS: Lungs: Unremarkable. No consolidation. Pleural spaces: Unremarkable. No pleural effusion. No pneumothorax. Heart/Mediastinum: Cardiomegaly. Bones/joints: Unremarkable. Right proximal humerus surgical screws are present. XR/XR chest 1V portable [id number] IMPRESSION: Negative for acute pathology.
--- NOTE | 2024-01-25 20:50 | ECG_ITS ---
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 Measurements Intervals [place] Rate: 104 P: 0 AL: 0 QRS: 35 QRSD: 96 T: 58 QT: 353 QTc: 466 Interpretive Statements ATRIAL FIBRILLATION WITH RAPID VENTRICULAR RESPONSE ABNORMAL RHYTHM ECG Compared to ECG 11/27/2023 09:17:13 No significant changes Electronically Signed On 01-26-2024 19:19:58 HYDRO STATION OPERATOR by Kavon Cordoba M.D. [id number]
[2024-01-25 21:15] LABS: Basophils % 0.4 %; Eosinophils # 0.1 10^3/uL (0.0-0.8); Eosinophils % 1.3 %; Hematocrit 37.6 % (37-53); Lymphocytes % 14.7 %; Mean Corpuscular Hemoglobin 32.9 pg (27-33); Mean Corpuscular Volume 99.7 fl (82-101); Mean Platelet Volume 10.3 fL (7.4-10.4); Monocytes # 0.8 10^3/uL (0.2-0.9); Monocytes % 11.2 %; Neutrophils % 72.1 %; Nucleated Red Blood Cells % 0 %; Platelet Count 224 10^3/cmm (157-399); Red Blood Count 3.77 10^6/uL (3.85-5.65); Red Cell Distribution Width 14.5 % (12.1-15.1)
[2024-01-25 21:27] LABS: INR 1.29 (0.8-1.2)
[2024-01-25 21:28] LABS: Partial Thromboplastin Time 30.4 SECONDS (23.9-36.7)
[2024-01-25] MEDS: sodium chloride 0.9% 500 ML 999 ML IV (21:33)
[2024-01-25 21:34] LABS: Troponin(5th) Baseline 19 ng/L (0-15)
[2024-01-25] MEDS: metoprolol tartrate 1 mg/1 mL SDV 5 mL 2.5 MG IVP (21:34)
[2024-01-25 21:35] VITALS: BP 161/85; PULSE 93; RESP 18; O2SAT 96
[2024-01-25 21:43] LABS: Alanine Aminotransferase 8 U/L (0-41); Alkaline Phosphatase 89 U/L (40-130); Anion Gap 13.8 (5-19); Aspartate Amino Transferase 16 U/L (0-40); Blood Urea Nitrogen 14 mg/dL (8-23); Calcium 9.2 mg/dL (8.5-10.5); Carbon Dioxide 26 mmol/L (22-29); Chloride 101 mmol/L (98-107); Creatinine Clr Calc Pharmacy 43.3059; Glucose 120 mg/dL (65-115); NT Pro B Type Natriuretic Pept 2345 pg/mL (0-450); Osmolality Calculated 286 mOsm/kg (285-295); Potassium 3.8 mmol/L (3.5-5.1); Sodium 137 mmol/L (136-145); Total Bilirubin 1.6 mg/dL (0.15-1.2)
[2024-01-25 22:00] VITALS: BP 152/98; PULSE 86; O2SAT 96
--- NOTE | 2024-01-25 22:55 | CTR_ITS ---
PROCEDURE INFORMATION: Exam: CT Lumbar Spine Without Contrast Exam date and time: 01/25/2024 11:08 PM Age: 83 years old Clinical indication: Lumbago; Patient HX: Lower back pain; PT felt pop when going from bending to standing position; AMS; Lower extremity discoordination; Imbalance; Syncope TECHNIQUE: Imaging protocol: Computed tomography of the lumbar spine without contrast. Radiation optimization: All CT scans at this facility use at least one of these dose optimization techniques: automated exposure control; mA and/or kV adjustment per patient size (includes targeted exams where dose is matched to clinical indication); or iterative reconstruction. COMPARISON: CT lumbar spine wo con* [id number] 02/05/2017 3:03 PM RADIATION DOSE METRICS: Total DLP (mGy-cm): 751.49 FINDINGS: Bones/joints: Demineralized bones. No acute fractures are identified. Negative for traumatic malalignment.The lumbar spine demonstrates marked discogenic and apophyseal joint degenerative changes at multiple levels. Partial osseous ankylosis of L3-L4 new from the remote comparison. Diffuse facet joint arthropathy. Variable severity intervertebral disc disease. Rightward convex scoliosis redemonstrated without interval change. There is variable severity spinal canal stenosis throughout the lumbar spine which is severe at L4-L5 secondary to combination of disc bulge, ligamentum flavum thickening, facet joint arthropathy. Pleural spaces: Small volume right-sided pleural effusion partially included. Gallbladder and biliary ducts: Cholecystectomy. Kidneys and ureters: Several nonobstructing bilateral kidney stones. Negative for hydronephrosis. Numerous circumscribed bilateral renal lesions of variable densities to include simple cysts and likely hyperdense proteinaceous cyst. Incomplete characterization without contrast. Stomach and bowel: Diverticulosis coli. Soft tissues: Unremarkable. CT/CT lumbar spine wo con* [id number] IMPRESSION: Negative for acute lumbar spine pathology. COMMENTS: Consistent with the [place] [employer]'s Incidental Findings Committee white paper (J Am Eyal Radiol 2018): Any incidental renal lesion less than 1 cm or classified as too small to characterize, or any incidental cystic renal lesion characterized as simple-appearing, is likely benign. No follow-up imaging is recommended for these lesions per consensus recommendations based on imaging criteria.
--- NOTE | 2024-01-25 22:55 | CTR_ITS ---
PROCEDURE INFORMATION: Exam: CTA Head With Contrast, Arteriography Exam date and time: 01/25/2024 11:12 PM Age: 83 years old Clinical indication: Dizziness and giddiness; Patient HX: Lower back pain; PT felt pop when going from bending to standing position; AMS; Lower extremity discoordination; Imbalance; Syncope TECHNIQUE: Imaging protocol: Computed tomographic angiography of the head with contrast. Exam focused on the arteries. 3D rendering (Not supervised by radiologist): MIP and/or 3D reconstructed images were created by the technologist. Radiation optimization: All CT scans at this facility use at least one of these dose optimization techniques: automated exposure control; mA and/or kV adjustment per patient size (includes targeted exams where dose is matched to clinical indication); or iterative reconstruction. Contrast material: OMNIPAQUE 350; Contrast volume: 100 ml; Contrast route: INTRAVENOUS (IV); COMPARISON: CT head wo con* [id number] 02/09/2023 7:56 AM RADIATION DOSE METRICS: Total DLP (mGy-cm): 1140.43 FINDINGS: ANTERIOR CIRCULATION: Right internal carotid artery: Intracranial segment is patent with no significant stenosis. No aneurysm. Right middle cerebral artery: The right middle cerebral artery is patent. Right anterior cerebral artery: The right anterior cerebral artery is patent. Left internal carotid artery: There are atherosclerotic calcifications of the left intracranial internal carotid artery/left carotid siphon with mild stenosis. Left middle cerebral artery: The left middle cerebral artery is patent. Left anterior cerebral artery: The left anterior cerebral artery is patent. POSTERIOR CIRCULATION: Right vertebral artery: The intracranial right vertebral artery is non dominant and patent. Left vertebral artery: The intracranial left vertebral artery is patent and dominant. Basilar artery: The basilar artery is patent. Right posterior cerebral artery: No occlusion or significant stenosis. No aneurysm. Left posterior cerebral artery: No occlusion or significant stenosis. No aneurysm. Other arteries: Vasculature: There are atherosclerotic calcifications of the carotid siphons and the V4 segments of the vertebral arteries. There are atherosclerotic calcifications of the intracranial internal carotid artery/carotid siphon with mild or ibgo-sk-rtjcxpyt stenosis. Brain: No acute intra- or extra axial fluid collections are identified. The basal cisterns are patent. No mass effect or midline shift is seen. The hammer-white matter differentiation is normal. Confluent periventricular hypoattenuation are nonspecific but likely the sequela of chronic small vessel ischemic disease. A CSF space posterior to the cerebellum could represent zane cisterna magna or retro cerebellar arachnoid cyst. There is a partial empty sella. Cerebral ventricles: Hkzv-jx-outtgiyc cerebral volume loss and ex vacuo dilation of the ventricles.. Orbital cavities: The patient is status post cataract extraction.. Mastoid air cells: There is opacification in the dependent right mastoid air cells. Paranasal sinuses: Minimal paranasal sinus disease. There are small tri bullosa of the middle turbinates, minimally opacified on the left. A small septal spur directed to the right. Bones/joints: No acute calvarial fracture is identified. Soft tissues: No soft tissue abnormalities identified. Other findings: The posterior cerebral arteries are patent. PROCEDURE INFORMATION: Exam: CTA Neck With Contrast Exam date and time: 01/25/2024 11:12 PM Age: 83 years old Clinical indication: Dizziness and giddiness; Patient HX: Lower back pain; PT felt pop when going from bending to standing position; AMS; Lower extremity discoordination; Imbalance; Syncope TECHNIQUE: Imaging protocol: Computed tomographic angiography of the neck with contrast. Exam focused on the cervical segments of the vasculature. 3D rendering (Not supervised by radiologist): MIP and/or 3D reconstructed images were created by the technologist. Radiation optimization: All CT scans at this facility use at least one of these dose optimization techniques: automated exposure control; mA and/or kV adjustment per patient size (includes targeted exams where dose is matched to clinical indication); or iterative reconstruction. Contrast material: OMNIPAQUE 350; Contrast volume: 100 ml; Contrast route: INTRAVENOUS (IV); COMPARISON: CT angio chest w abd pel w con 05/08/2023 6:50 AM RADIATION DOSE METRICS: Total DLP (mGy-cm): 1140.43 FINDINGS: Right common carotid artery: There is atherosclerotic disease of the right common carotid artery and tortuosity without high-grade stenosis. There are atherosclerotic calcifications of the right carotid bifurcation with less than 50% stenosis of the origin of the right internal carotid artery by NASCET criteria. Right internal carotid artery: See Right common carotid artery finding. Right external carotid artery: No occlusion or stenosis of the origin. Left common carotid artery: There are atherosclerotic calcifications of the left common carotid artery without significant stenosis. There are atherosclerotic calcifications of the left carotid bifurcation with less than 50% stenosis of the origin of the left internal carotid artery by NASCET criteria. Left internal carotid artery: The remaining cervical left internal carotid artery is tortuous and atherosclerotic without significant stenosis. Left external carotid artery: No occlusion or stenosis of the origin. Right vertebral artery: The right vertebral artery is tortuous and atherosclerotic with mild stenosis at its origin due to atherosclerotic disease. Left vertebral artery: The left vertebral artery is dominant and tortuous with minimal atherosclerosis but no significant stenosis. Brachiocephalic artery: There are atherosclerotic calcifications of the brachiocephalic trunk without significant stenosis. Right subclavian artery: There are atherosclerotic calcifications of the right subclavian artery without significant stenosis. Left subclavian artery: There are atherosclerotic calcifications of the left subclavian artery without significant stenosis. Aorta: There are atherosclerotic calcifications of the aortic arch. Teeth: The patient is edentulous. Soft tissues: Normal. No significant soft tissue swelling. Bones/joints: There are degenerative changes of the cervical spine with snna-ef-aedhxpvf spinal canal stenosis at the levels of C5-C6, C6-C7, and C7-T1 due to atherosclerotic disease. Prominent band surrounding the odontoid process resulting in mild indentation on the ventral aspect of the thecal sac. Multilevel neural foraminal stenoses, up to severe in the mid cervical spine due to degenerative disc and joint disease. Lungs: Focal bronchiectasis with air-fluid cystic lesion in the right lung apex measuring approximately 11 mm, (series 13, image 25). A follow-up chest CT could be obtained for further evaluation. Other findings: The arch bifurcation is typical. The remaining cervical internal carotid artery is tortuous and atherosclerotic without significant stenosis. CT/CT angio headneck* [id number] IMPRESSION: 1. No evidence of acute intracranial hemorrhage, mass effect, or midline shift. 2. Atherosclerotic disease of the intracranial arterial visits as outlined above. 3. No large vessel occlusion, aneurysm, or hemodynamically significant stenosis in the head. IMPRESSION: 1. 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 2. No large vessel occlusion or hemodynamically significant stenosis in the neck. 3. Cystic lesion with air-fluid level in the right lung apex. CT of the a nonemergent CT of the chest is recommended for further evaluation. 4. Cervical spondylosis. REFERENCES: NASCET CRITERIA. The degree of stenosis in the cervical segment of the internal carotid artery is based on NASCET criteria. Normal is no stenosis. Mild is less than 50% stenosis. Moderate is 50-69% stenosis. Severe is 70% to 99% stenosis. Total occlusion is no detectable patent lumen.
[2024-01-25 22:56] VITALS: BP 158/99; PULSE 96; RESP 18; O2SAT 97
[2024-01-25] MEDS: iohexol 350 mg/mL 500 mL Btl (per mL) IV (23:08)
[2024-01-25 23:23] LABS: Troponin 5 2HR 16.39 ng/L (0-15)
[2024-01-25 23:24] LABS: Troponin 5 2HR Delta -2.61 ABS# (0-10)
[2024-01-25 23:30] VITALS: BP 158/99; PULSE 91; O2SAT 94
--- NOTE | 2024-01-25 23:51 | ED_ITS ---
HPI - Back Pain/Injury 2 General: Chief Complaint: Back Pain/Injury Stated Complaint: BACK INJURY Time Seen by Provider: 01/25/24 20:42 History of Present Illness: 83-year-old male gentleman who says that earlier in the day he bent over to put some air in his tire at the gas station, and nearly passed out. He remembers falling to the ground. He was able to get up, and drive home. Since that time though, he has had some trouble walking. He could not walk at home, so family brought him to the hospital. He complains of some mild back pain on and off, although he says it is better now. He did not hit his head. He does not have a headache. He has no language problems, vision problems, focal weakness, numbness or tingling. He says he is not dizzy. Related Data Home Medications Medication Instructions Recorded Confirmed apixaban 5 mg tablet (Eliquis) 5 mg PO DAILY 07/02/23 01/26/24 vitamin E 268 mg (400 unit) capsule 1 cap PO DAILY 07/02/23 01/26/24 Previous Rx's Medication Instructions Recorded aspirin 81 mg tablet,delayed 81 mg PO QAM #30 tabs 06/26/23 release Allergies Allergy/AdvReac Type Severity Reaction Status Date / Time No Known Allergies Allergy Verified 10/18/23 15:59 [facility] ED 2 PFSH: Medical History Left ureteral calculus Renal mass Calculus of kidney with calculus of ureter History of atrial fibrillation Dyslipidemia (high LDL; low HDL) Chronic episodic atrial fibrillation Benign essential HTN Atherosclerotic heart disease of [place] coronary artery without angina pectoris Insomnia History of colon polyps Lumbar disc disease GERD (gastroesophageal reflux disease) Fibromyalgia Surgical History History of cardiac cath History of cholecystectomy History of shoulder surgery History of colonoscopy Family History Brother No problems noted. Father , at age 93 Dementia Parkinson disease Mother , at age 75 No problems noted. Denies family history of Diabetes CAD (coronary artery disease) Clotting disorder Chronic kidney disease (CKD) Suicide Anesthesia complication Bleeding disorder Lung disease Cancer Stroke Social History Smoking and tobacco/nicotine status: never used tobacco/nicotine Alcohol intake: current Alcohol intake frequency: holidays/special occasions only Substance/Drug Use: never Housing: House Marital status: / Current occupational status: retired Physical Exam 2 Const: COMMON NORMALS: no acute distress GENERAL APPEARANCE: cooperative; not ill appearing ORIENTATION/CONSCIOUSNESS: Yes awake, Yes oriented to person and Yes oriented to place HENMT: COMMON NORMALS: normocephalic, atraumatic and Normal external nose present HEAD & SCALP: normocephalic and atraumatic FACE & SINUS: normal facial exam NOSE: Normal external nose present Eye: COMMON NORMALS: Equal, round and reactive pupils present, EOMs intact bilaterally and conjunctivae normal CONJUNCTIVA: Yes conjunctivae normal P UPIL: Yes Equal, round and reactive pupils present Neck/C-Spine: GENERAL: Yes trachea midline Resp: COMMON NORMALS: normal respiratory effort, No use of accessory muscles and clear to auscultation bilaterally AUSCULTATION: clear to auscultation bilaterally Cardio: COMMON NORMALS: regular rate and regular rhythm RATE: regular rate RHYTHM: regular rhythm HEART SOUNDS: Murmur heart sound present Back/Pelvis: OTHER: Examination lumbar spine reveals no reproducible tenderness. There is no deformity. No pain on pelvic compression. Straight leg raise testing is negative bilaterally. Neuro: SENSORIUM/ORIENTATION: Yes oriented to person and Yes oriented to place COORDINATION/BALANCE: [id number] test normal and [id number]-cc-[id number] test normal SPEECH: speech normal SENSORY EXAM: Yes extremities (Intact) C OORDINATION: [id number]-[id number] test normal and wafp-[id number] test normal Course 2 Vital Signs: Vital signs: Vital Signs Temperature 98.0 F 01/26/24 04:00 Pulse Rate 97 01/26/24 04:00 Respiratory Rate 20 H 01/26/24 04:00 Blood Pressure 156/118 01/26/24 04:00 Pulse Oximetry 94 01/26/24 04:00 Oxygen Delivery Me thod Room Air 01/26/24 04:00 MDM - Back Pain/Injury Medical Decision Making The patient seems to have coordination while lying. Strength is equal bilaterally. On standing, his legs shake, and he cannot take a step. He has no reproducible back pain. No back pain on standing. This does not seem to be a lumbar issue. He is not dizzy, and has no other signs of posterior circulation deficit. CTA of the head and does not show any significant occlusion. There is no subacute stroke finding. No hemorrhage. Chest x-ray is negative. CT of the lumbar spine shows some severe spinal stenosis at L5-S1 without acute findings. There was some question of impingement of the thecal sac on CTA of the neck at the level of the odontoid process. We spoke with radiology, and they do not believe that this would be a cause of discoordination or weakness to the bilateral lower extremities while standing. Still yet, the patient cannot walk. He is able to urinate on his own to some degree. Hospitalist is seen and consulted on the patient. He will be observed in the hospital, further imaging studies when available later this morning. Labs 01/25/24 21:08 01/25/24 21:08 Radiology Impressions Chest X-Ray 01/25/24 20:49 IMPRESSION: Negative for acute pathology. Head/Neck CTA 01/25/24 22:55 IMPRESSION: 1. No evidence of acute intracranial hemorrhage, mass effect, or midline shift. 2. Atherosclerotic disease of the intracranial arterial visits as outlined above. 3. No large vessel occlusion, aneurysm, or hemodynamically significant stenosis in the head. IMPRESSION: 1. 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 2. No large vessel occlusion or hemodynamically significant stenosis in the neck. 3. Cystic lesion with air-fluid level in the right lung apex. CT of the a nonemergent CT of the chest is recommended for further evaluation. 4. Cervical spondylosis. REFERENCES: NASCET CRITERIA. The degree of stenosis in the cervical segment of the internal carotid artery is based on NASCET criteria. Normal is no stenosis. Mild is less than 50% stenosis. Moderate is 50-69% stenosis. Severe is 70% to 99% stenosis. Total occlusion is no detectable patent lumen. ADDENDUM: 01/26/24 021 ADDENDUM: Findings were discussed with FOSTER Ogden at 01/26/2024 2:07 AM [employer]IL[employer] ECOLOGY PROFESSOR. Dr. Mendez relates that the patient had sudden onset bilateral lower extremity weakness and discoordination, and reportedly cannot walk. The degenerative changes in the cervical spine appear chronic, and while there is some mass effect upon the thecal sac from the degenerative pannus by the odontoid process, this is not resulting in severe spinal canal stenosis or obvious compression of the cervicomedullary junction. Would consider further evaluation with MRI spine, with inclusion of the thoracic and lumbar spine given the lower extremity weakness. Lumbar Spine CT 01/25/24 22:55 IMPRESSION: Negative for acute lumbar spine pathology. COMMENTS: Consistent with the [employer]'s Incidental Findings Committee white paper (J Am Eyal Radiol 2018): Any incidental renal lesion less than 1 cm or classified as too small to characterize, or any incidental cystic renal lesion characterized as simple-appearing, is likely benign. No follow-up imaging is recommended for these lesions per consensus recommendations based on imaging criteria. Laboratory Results WBC 6.80 10^3/uL (3.29-11.43) 01/25/24 21:08 RBC 3.77 10^6/uL (3.85-5.65) L 01/25/24 21:08 Hgb 12.40 g/dL (11.27-16.99) 01/25/24 21:08 Hct 37.6 % (37-53) 01/25/24 21:08 MCV 99.7 fl (82-101) 01/25/24 21:08 MCH 32.9 pg (27-33) 01/25/24 21:08 MCHC 33.0 g/dL (30-55) 01/25/24 21:08 RDW 14.5 % (12.1-15.1) 01/25/24 21:08 Plt Count 224 10^3/cmm (157-399) 01/25/24 21:08 MPV 10.3 fL (7.4-10.4) 01/25/24 21:08 Neut % (Auto) 72.1 % 01/25/24 21:08 Lymph % (Auto) 14.7 % 01/25/24 21:08 [place] % (Auto) 11.2 % 01/25/24 21:08 Eos % (Auto) 1.3 % 01/25/24 21:08 Baso % (Auto) 0.4 % 01/25/24 21: Neut # (Auto) 4.90 10^3/uL (1.8-7.7) 01/25/24 21:08 Lymph # (Auto) 1.0 10^3/uL (0.8-4.8) 01/25/24 21:08 [place] # (Auto) 0.8 10^3/uL (0.2-0.9) 01/25/24 21:08 Eos # (Auto) 0.1 10^3/uL (0.0-0.8) 01/25/24 21:08 Baso # (Auto) 0.0 10^3/uL (0.0-0.1) 01/25/24 21:08 Nucleated RBC % (auto) 0 % 01/25/24 21:08 Nucleated RBCs # 0.0 /100WBC 01/25/24 21:08 PT 16.60 SECONDS (12.1-14.9) H 01/25/24 21:08 INR 1.29 (0.8-1.2) H 01/25/24 21:08 APTT 30.4 SECONDS (23.9-36.7) 01/25/24 21:08 Sodium 137 mmol/L (136-145) 01/25/24 21:08 Potassium 3.8 mmol/L (3.5-5.1) 01/25/24 21:08 Chloride 101 mmol/L (98-107) 01/25/24 21:08 Carbon Dioxide 26 mmol/L (22-29) 01/25/24 21:08 Anion Gap 13.8 (5-19) 01/25/24 21:08 BUN 14 mg/dL (8-23) 01/25/24 21:08 Creatinine 1.3 mg/dL (0.7-1.2) H 01/25/24 21:08 GFR Calculation Not Reportable 01/25/24 21:08 Glucose 120 mg/dL (65-115) H 01/25/24 21:08 Calculated Osmolality 286 mOsm/kg (285-295) 01/25/24 21:08 Calcium 9.2 mg/dL (8.5-10.5) 01/25/24 21:08 Magnesium 2.0 mg/dL (1.7-2.3) 01/25/24 21:08 Total Bilirubin 1.6 mg/dL (0.15-1.2) H 01/25/24 21:08 AST 16 U/L (0-40) 01/25/24 21:08 ALT 8 U/L (0-41) 01/25/24 21:08 Alkaline Phosphatase 89 U/L (40-130) 01/25/24 21:08 Troponin T Baseline 19 ng/L (0-15) H 01/25/24 21:08 Troponin T 120 Minute 16.39 ng/L (0-15) H 01/25/24 23:01 Delta Troponin T -2.61 ABS# (0-10) L 01/25/24 23:01 NT-Pro-B Natriuret Pep 2345 pg/mL (0-450) H 01/25/24 21:08 Total Protein 7.0 g/dL (6.6-8.7) 01/25/24 21:08 Albumin 4.0 g/dL (3.5-5.2) 01/25/24 21:08 Globulin 3.0 g/dL (1.3-4.6) 01/25/24 21:08 Vitamin B12 162 pg/mL (232-1245) L 01/25/24 21:08 TSH 5.08 uIU/mL (0.27-4.20) H 01/25/24 21:08 Urine Color Yellow (Yellow) 01/25/24 23:50 Urine Appearance Clear (CLEAR) 01/25/24 23:50 Urine pH 6.0 (5-7) 01/25/24 23:50 Ur Specific [place] 1.088 (1.005-1.030) H 01/25/24 23:50 Urine Protein 1+ (Negative) A 01/25/24 23:50 Urine Glucose (UA) Negative (Normal) 01/25/24 23:50 Urine Ketones Negative (Negative) 01/25/24 23:50 Urine Blood Non-haemolysed trace (Negative) 01/25/24 23:50 Urine Nitrate Negative (Negative) 01/25/24 23:50 Urine Bilirubin Negative (Negative) 01/25/24 23:50 Urine Urobilinogen 1.0 mg/dL (Negative) 01/25/24 23:50 Ur Leukocyte Esterase Negative (Negative) 01/25/24 23:50 Urine RBC 6-10 /hpf (0-2) 01/25/24 23:50 Urine WBC 0-5 /hpf (0-5) 01/25/24 23:50 Ur Squamous Epith Cells 0-5 /hpf (0-5) 01/25/24 23:50 Amorphous Sediment Not Reportable 01/25/24 23:50 Urine Bacteria None seen /hpf (NONE) 01/25/24 23:50 Hyaline Casts 3.04 /lpf 01/25/24 23:50 Urine Mucus Trace /hpf 01/25/24 23:50 All radiology interpretation(s) finalized by discharge Discharge Plan Discharge Patient Disposition: Placed in Observation Admit Provider: Jimbo Torres Clinical Impression: Lumbar stenosis with neurogenic claudication, Syncope, Leg weakness, bilateral Coding Level of Care Code ED [employer] Operator for Victor M Hale
[2024-01-26] VITALS (9 sets, daily range): BP systolic 145–166; BP diastolic 91–118; PULSE 77–101; RESP 14–26; TEMP 36.5–37.1; O2SAT 92–98
[2024-01-26] LABS: Bilirubin Urine Negative (Negative); Blood Urine Non-haemolysed trace (Negative); Glucose Urine UA Negative (Normal); Ketones Urine Negative (Negative); Leukocyte Esterase Urine Negative (Negative); Nitrate Urine Negative (Negative); Protein Urine 1+ (Negative); Urine Appearance Clear (CLEAR); Urine Color Yellow (Yellow)
[2024-01-26 00:03] LABS: Add Urine Microscopic? YES; Bacteria Urine None Seen /hpf; Hyaline Casts Urine 3.04 /lpf; Squamous Epithelial Cell Urine 0-5 /hpf (0-5); Universal Test for UA Present (0); WBC Urine 0-5 /hpf (0-5)
[2024-01-26 00:23] LABS: Add Urine Culture? No; Mucus Urine TRACE /hpf; Specific Gravity, Urine 1.088 (1.005-1.030)
--- NOTE | 2024-01-26 01:28 | PC.NURSE ---
RN x 2 at bedside to attempt to ambulate pt. Pt unable to ambulate at this time. Pt was able to stand straight up without assistance, but then states nope, I cannot do it. PT then sits down. Pt denies dizziness or pain. States his legs just feel like they are not working.
[2024-01-26 02:02] LABS: Thyroid Stimulating Hormone 5.08 uIU/mL (0.27-4.20); Vitamin B12 162 pg/mL (232-1245)
--- NOTE | 2024-01-26 02:05 | P.CONIM_ITS ---
Providers/Reason For Consult 2 Consulting Physician/Specialty*: Jimbo Torres MD, hospitalist Reason for Consult*: Cannot walk Requesting Physician: Dr. Mendez History of Present Illness History of Present Illness David Orozco is a 83 year old male presenting to the emergency department reporting he cannot seem to walk currently. Patient reports that he was at the gas station, addressing a low tire stooped over when he apparently fainted. When he came to he felt he was okay, but a bystander was somewhat worried about him. He convinced him that he could drive home which he did, and reports the bystander followed him home. He then talked to his sister, who directed him to the hospital. He states he does not feel like he can walk at this time. He denies any head pain, neck pain, spine pain/back pain or leg pain. He reports he can still urinate, and does not feel any paresthesias. His history varies somewhat, from the ER record where he complained of some back pain. He denies ever having these symptoms before. He reports he typically takes care of himself, and initially denied any medical problems. However, when I pointed out his history of chronic A-fib, hypertension, etc. he acknowledged she has some of that but stopped all his medicines. There have been concerns in the past regarding cognitive deficit. Review of Systems 2 General: Reports: 10 or more systems reviewed and unremarkable except in HPI and below Medications/Allergies Home Medications Medication Instructions Recorded Confirmed Last Taken Type aspirin 81 mg tablet,delayed 81 mg PO QAM #30 tabs 06/26/23 11/27/23 11/26/23 Rx release apixaban 5 mg tablet (Eliquis) 5 mg PO DAILY 07/02/23 11/27/23 11/26/23 History vitamin E 268 mg (400 unit) capsule 1 cap PO DAILY 07/02/23 11/27/23 11/26/23 History Allergies Allergy/AdvReac Type Severity Reaction Status Date / Time No Known Allergies Allergy Verified 10/18/23 15:59 PFSH Acute 2 PFSH: Medical History Left ureteral calculus Renal mass Calculus of kidney with calculus of ureter History of atrial fibrillation Dyslipidemia (high LDL; low HDL) Chronic episodic atrial fibrillation Benign essential HTN Atherosclerotic heart disease of [place] coronary artery without angina pectoris Insomnia History of colon polyps Lumbar disc disease GERD (gastroesophageal reflux disease) Fibromyalgia Surgical History History of cardiac cath History of cholecystectomy History of shoulder surgery History of colonoscopy Family History Brother No problems noted. Father , at age 93 Dementia Parkinson disease Mother , at age 75 No problems noted. Denies family history of Diabetes CAD (coronary artery disease) Clotting disorder Chronic kidney disease (CKD) Suicide Anesthesia complication Bleeding disorder Lung disease Cancer Stroke Social History Smoking and tobacco/nicotine status: never used tobacco/nicotine Alcohol intake: current Alcohol intake frequency: holidays/special occasions only Substance/Drug Use: never Housing: House Marital status: / Current occupational status: retired Vitals/I&O/Wt Last Vital Signs Temp 98.2 F 01/25/24 20:36 Pulse 94 01/26/24 01:28 Resp 18 01/26/24 01:28 BP 145/91 01/26/24 00:30 Pulse Ox 98 01/26/24 01:28 O2 Del Method Room Air 01/26/24 01:28 01/25/24 01/25/24 01/26/24 14:59 22:59 06:59 Intake Total 500 / 500 Balance 500 / 500 Weight last 48 hrs Weight 81.647 kg Physical Exam 2 Narrative: General exam is a conversive white male denying headache or any pain anywhere. When we get him up to ambulate, he will stand, and then report his legs are too weak, wanting to sit back down. When distracted he bears more weight, and can alternate legs. He tends to want to sit back quickly, but during standing he denies any dizziness, headache, vertigo Neuro: No focal deficits, cranial nerves II through XII intact. No cerebellar dysfunction. No drift. With movement of his neck he has no symptoms of pain, paresthesia, or Lhermitte sign. No sacral paresthesias. No hyperreflexia. Neck supple no lymphadenopathy thyromegaly Cardiovascular irregular, irregular with a 3/6 systolic murmur heard best in the mitral area Lungs clear no wheezing or crackles Abdomen is soft nontender with positive bowel sounds. No obvious organomegaly exam is deferred Extremities no cyanosis clubbing or edema, cap refill brisk. No clonus. Data 01/25/24 21:08 01/25/24 21:08 Other Labs: Lumbar spine CT is negative for acute pathology, DJD is noted Head neck CTA no large vessel occlusion, CVA. Thecal sac indentation at close to odontoid. Cystic lung finding as below in assessment Chest x-ray which I reviewed demonstrates prior right humerus surgery, no infiltrate EKG which I reviewed demonstrates atrial fibrillation, rapid ventricular rate with a rate of 105, normal axis, nonspecific ST-T wave changes LFTs normal with the exception of total bilirubin of 1.6 Magnesium normal Calcium and albumin are normal BNP 2345 Troponin 19 with repeat of 16 TSH 5.08 A&P Assessment and plan (1) Syncope: Patient presents with syncope Observation Telemetry Echocardiogram CTA head and neck no large vessel occlusion, obvious CVA Orthostatic blood pressures (2) A-fib: Patient with history of atrial fibrillation He is not taking any medications currently, as he stopped them on his own Initiate metoprolol, aspirin He has stopped his apixaban multiple times, and with concern with leg weakness I will not start this currently Check TSH Qualifiers: Atrial fibrillation type: longstanding persistent Qualified Code(s): I 48.11 - Longstanding persistent atrial fibrillation (3) Heart murmur: Patient with significant heart murmur Check echo Previously he had at least moderately severe mitral regurgitation. (4) Leg weakness, bilateral: Patient has significant bilateral leg weakness, more subjective, with standing. On CTA head and neck there was some concern of small indention of the thecal sac at the odontoid. This has been reviewed verbally by second radiologist, and they did not think this was significantly concerning. Certainly for more symptoms 1 could consider further MRI imaging of the spine. This does not seem to be related to CVA, or posterior stroke with no dizziness, other neurologic symptoms, and the fact the weakness is bilateral. I have some concern with his interaction that with distraction he seems to bear more weight and have better balance. At this point given his symptoms I will arrange for an MRI of the spine tomorrow. (5) Memory loss: Patient has significant memory loss, and difficulty with history. This impairs ability to quickly diagnose, and I have concerns regarding him living at home alone. Will need to consult with family's ability to continue to do so, and to his caregivers are. Check TSH and B12 Plan Low vitamin B12. Of 1000 mcg IM times now, then 1000 mcg p.o. daily. Cystic lesion right lung apex, nonemergent CT chest as outpatient Other medical problems as outlined in past medical history Full code currently Lovenox for DVT prophylaxis Consult Attestations 2 Medical Necessity Statement: Will require less than 2 midnight stay for evaluation and treatment of lower extremity weakness, syncope Diagnoses Syncope R55 A-fib I48.11 Atrial fibrillation type: longstanding persistent Heart murmur R01.1 Leg weakness, bilateral R29.898 Memory loss R41.3 Time Spent (min) 69
--- NOTE | 2024-01-26 03:16 | MR_ITS ---
WS: [id number] MRI LUMBAR SPINE NONCONTRAST HISTORY: LE weakness COMPARISON: 11/18/2016 TECHNIQUE: Sagittal and axial multisequence imaging is submitted. Moderate degenerative rotary scoliosis with convexity to the RIGHT. Advanced degenerative changes thr oughout the lumbar spine. Loss of disc space height and osteophytic ridging. Progression of findings and stenosis since 2017. Complete loss of disc space height of L3-4 with bone upon bone. The remaining discs are narrowed and desiccated. No acute fracture. Conus terminates normally at L1-2 disc level. L1-L2: Diffuse osteophytic ridging with facet disease and ligamentum flavum hypertrophy. Shallow RIGH T foraminal disc protrusion. Mild central with moderate bilateral foraminal stenosis. Slightly greate r encroachment upon the exiting L1 nerve roots. L2-L3: 3 mm retrolisthesis of L2. Osteophytic ridging with disc bulging and marked facet arthritis. M oderate central with severe bilateral subarticular recess and foraminal stenosis. There is disc encro achment upon the L2 and L3 nerve roots. L3-L4: Slight retrolisthesis of L3. Osteophytic ridging. Marked facet with ligamentum flavum arthriti s. Shallow RIGHT paracentral disc protrusion. Moderate to severe central with severe bilateral subart icular recess and foraminal stenosis. Disc contacting the L3 and L4 nerve roots. L4-L5: Severe annular disc bulging with osteophytic ridging. Marked ligamentum flavum and facet arthr itis. Severe central, bilateral subarticular recess and foraminal stenosis. There is marked encroachm ent and deformity of the L4 and L5 nerve roots. L5-S1: Diffuse marked annular disc bulging with ligamentum flavum and facet arthritis. Disc encroachm ent upon the ventral thecal sac. Severe central, bilateral subarticular recess and foraminal stenosis . Fluid in the facet joints. Mild LEFT renal atrophy with acquired renal cysts. MR/MR lumbar spine wo con* [id number] IMPRESSION: 1. Significant progression of stenosis and rotary scoliosis and facet arthropa thy since 2016. Stenosis is due to combination of scoliosis, osteophytosis, dis c disease, facet and ligamentum flavum disease. 2. Degenerative RIGHT rotary scoliosis. 3. L3-4: Moderate to severe central with severe bilateral subarticular recess and foraminal stenosis. 4. L4-5 and L5-S1: Severe central, bilateral subarticular recess and foraminal stenosis. 5. L2-3: Moderate central with severe bilateral subarticular recess and forami nal stenosis. 6. L1-2: Mild central with moderate bilateral foraminal stenosis.
--- NOTE | 2024-01-26 03:16 | USCV_ITS ---
David Orozco Age: 83 Gender: M : 1940 Exam Date: 01/26/2024 09:02 Ordering Phys: Jimbo Torres MD Technologist: Exam Location: [facility] [place] Indication: BP: 166 / 104 HR: 148 Rhythm: Sinus Technical Quality: Adequate MEASUREMENTS (Male / Female) Normal Values 2D ECHO LV Diastolic Diameter PLAX 4.5 cm 4.2 - 5.9 / 3.9 - 5.3 cm IVS Diastolic Thickness 1.4 cm 0.6 - 1.0 / 0.6 - 0.9 cm IVS Systolic Thickness 1.4 cm LVPW Diastolic Thickness 1.2 cm 0.6 - 1.0 / 0.6 - 0.9 cm LVPW Systolic Thickness 1.5 cm LVOT Diameter 2.0 cm LV Ejection Fraction 2D Teich 66.8 % LV Ejection Fraction MOD 4C 61.3 % LV Ejection Fraction MOD 2C 72.0 % LV Ejection Fraction 2C AL 71.3 % LA Diameter 4.3 cm RA Systolic Volume 4C AL 65.2 ml RA Systolic Volume 4C MOD 61.6 ml Aorta at Sinotubular Diameter 2.8 cm IVC Diameter 2.0 cm M-MODE LA Ao Ratio MM 1.4 AV Cusp Separation MM 1.9 cm DOPPLER AV Peak Velocity 111.0 cm/s LVOT Peak Velocity 64.0 cm/s AV Area Cont Eq vti 2.7 cm squared AV Area Cont Eq pk 1.8 cm squared MV Peak Velocity 174.0 cm/s MV Area PHT 6.6 cm squared Mitral E to A Ratio 1.1 TV Peak Velocity 419.5 cm/s TR Peak Velocity 454.0 cm/s TR Peak Gradient 82.4 mmHg TV Peak E Velocity 77.0 cm/s Right Atrial Pressure 3.0 mmHg Pulmonary Artery Systolic Pressu 85.4 mmHg PV Peak Velocity 111.0 cm/s FINDINGS Left Ventricle Normal left ventricular size, systolic function and wall thickness, with no regional wall motion abnormalities. Left ventricular ejection fraction is estimated at 60 %. Grade II/IV diastolic dysfunction, moderately elevated filling pressures. Right Ventricle The right ventricle is normal in size and function. Severe pulmonary hypertension, RVSP 85.4 mmHg. Right Atrium The right atrium is normal in size. Left Atrium Moderately increased left atrial size. Mitral Valve Moderately thickened mitral valve. No mitral valve stenosis. Moderate mitral valve regurgitation. Aortic Valve Moderate aortic valve calcification. No aortic valve stenosis. Mild aortic valve regurgitation. Tricuspid Valve Moderate aortic valve calcification. No aortic valve stenosis. Mild aortic valve regurgitation. Pulmonic Valve Mild pulmonary valve regurgitation. Pericardium Normal pericardium without effusion. Aorta Normal ascending aorta dimension. IVC The inferior vena cava appears normal. CONCLUSIONS Normal left ventricular size, systolic function and wall thickness, with no regional wall motion abnormalities. Left ventricular ejection fraction is estimated at 60 %. Grade II/IV diastolic dysfunction, moderately elevated filling pressures. Moderately increased left atrial size. Moderately thickened mitral valve. No mitral valve stenosis. Moderate mitral valve regurgitation. Moderate aortic valve calcification. No aortic valve stenosis. Mild aortic valve regurgitation. Moderate aortic valve calcification. No aortic valve stenosis. Mild aortic valve regurgitation. There is no pericardial effusion. The right ventricle is normal in size and function. Severe pulmonary hypertension, RVSP 85.4 mmHg. Right atrial pressure is around 15 mm of mercury. Antoinette Choi MD (Electronically Signed) Final Date: 30 January 2024 17:03 S
--- NOTE | 2024-01-26 03:16 | MR_ITS ---
WS: [id number] MRI CERVICAL SPINE NONCONTRAST HISTORY: lower ext weakness, abnormal CT COMPARISON: 02/14/2012 Technique: Multiplanar, multisequence noncontrast imaging of the cervical spine. Slight retrolisthesis of C5 by 2 mm. No acute fractures or marrow edema. Disc bases are narrowed and desiccated, most significant at C5-6 and C6-7. Craniocervical junction, C1 and C2 relationship, odontoid process and soft tissues are normal. 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 C2-C3: Mild bilateral facet arthritis and disc bulging. Moderate LEFT foraminal stenosis. C3-C4: Bilateral mild facet arthritis. Bilateral mild to moderate foraminal stenosis. C4-C5: Mild annular disc bulging with bilateral facet arthritis. Moderate RIGHT and mild LEFT foramin al stenosis. C5-C6: Osteophytic ridging, disc bulging and facet arthritis. Moderate central with severe bilateral foraminal stenosis. C6-C7: Diffuse annular disc bulging with a central disc protrusion, osteophytic ridging and facet art hritis. Moderate central with severe RIGHT and moderate LEFT foraminal stenosis. C7-T1: Mild annular disc bulging and facet arthritis. Severe bilateral foraminal stenosis. Paraspinal soft tissue are normal. MR/MR cervical spin wo con* [id number] IMPRESSION: 1. Progression of degenerative cervical spondylosis since 2011 and stenosis. 2. Multilevel central and foraminal stenosis on the basis of osteophytes, disc and facet disease. 3. C5-6: Moderate central with severe bilateral foraminal stenosis. 4. C6-7: Moderate central with severe RIGHT and moderate LEFT foraminal stenos is. 5. C7-T1: Severe bilateral foraminal stenosis. 6. C2-3: Moderate LEFT foraminal stenosis. 7. C3-4 mild to moderate bilateral foraminal stenosis. 8. C4-5 moderate RIGHT and mild LEFT foraminal stenosis.
[2024-01-26] MEDS: cyanocobalamin 1,000 mcg/mL SDV 1000 MCG IM (03:56)
[2024-01-26 03:59] LABS: Troponin 5 6HR 16.84 ng/L (0-15)
[2024-01-26 04:22] LABS: Troponin 5 6HR Delta -2.16 ng/L (0-12)
[2024-01-26] MEDS: aspirin 81 mg EC Tablet PO (05:11)
[2024-01-26] MEDS: metoprolol tartrate 25 mg Tablet PO (09:00)
[2024-01-26] MEDS: cyanocobalamin 1,000 mcg Tablet 1000 MCG PO (09:00)
[2024-01-26] MEDS: losartan 50 mg Tablet 25 MG PO (09:00)
[2024-01-26] MEDS: enoxaparin 40 mg/0.4 mL Syringe SUBCUT (09:00)
--- NOTE | 2024-01-26 10:12 | P.CONIM_ITS ---
Providers/Reason For Consult 2 Consulting Physician/Specialty*: Hospitalist Reason for Consult*: Leg weakness Attending Physician: Tasha Meadows MD History of Present Illness History of Present Illness David Orozco is a 83 year old there is currently in [facility]. Patient reports that he was at the gas station, addressing a low tire stooped over when he apparently fainted. When he came to he felt he was okay, but a bystander was somewhat worried about him. He convinced him that he could drive home which he did, and reports the bystander followed him home. He then talked to his sister, who directed him to the hospital. He denies any head pain, neck pain, spine pain/back pain or leg pain. He reports he can still urinate, and does not feel any paresthesias. Review of Systems 2 Const: Denies: fever(s) or chills Card: Denies: chest pain Resp: Reports: dyspnea (Resolved) GI: Denies: abdominal pain : Denies: dysuria, urinary frequency or urinary urgency Musc: Denies: neck pain or back pain Skin/Breast: Denies: rash Medications/Allergies Home Medications Medication Instructions Recorded Confirmed Last Taken Type aspirin 81 mg tablet,delayed 81 mg PO QAM #30 tabs 06/26/23 01/26/24 11/26/23 Rx release apixaban 5 mg tablet (Eliquis) 5 mg PO DAILY 07/02/23 01/26/24 11/26/23 History vitamin E 268 mg (400 unit) capsule 1 cap PO DAILY 07/02/23 01/26/24 11/26/23 History Allergies Allergy/AdvReac Type Severity Reaction Status Date / Time No Known Allergies Allergy Verified 10/18/23 15:59 Current Medications Generic Name Dose Route Start Last Admin Trade Name Freq PRN Reason Stop Dose Admin Aspirin 81 mg 01/26/24 06:00 01/26/24 05:11 Aspirin 81 Mg Ec Tablet PO 81 mg QAM MISTY Administration Cyanocobalamin 1,000 mcg 01/26/24 09:00 01/26/24 09:00 Cyanocobalamin 1,000 Mcg Tablet PO 1,000 mcg DAILY MISTY Administration Enoxaparin Sodium 40 mg 01/26/24 09:00 01/26/24 09:00 Enoxaparin 40 Mg/0.4 Ml Syringe SUBCUT 40 mg Q24H MISTY Administration Losartan Potassium 25 mg 01/26/24 09:00 01/26/24 09:00 Losartan 50 Mg Tablet PO 25 mg DAILY MISTY Administration Metoprolol Tartrate 25 mg 01/26/24 09:00 01/26/24 09:00 Metoprolol Tartrate 25 Mg Tablet PO 25 mg BID@0900,2100 MISTY Administration PFSH Acute 2 PFSH: Medical History Left ureteral calculus Renal mass Calculus of kidney with calculus of ureter History of atrial fibrillation Dyslipidemia (high LDL; low HDL) Chronic episodic atrial fibrillation Benign essential HTN Atherosclerotic heart disease of [place] coronary artery without angina pectoris Insomnia History of colon polyps Lumbar disc disease GERD (gastroesophageal reflux disease) Fibromyalgia Surgical History History of cardiac cath History of cholecystectomy History of shoulder surgery History of colonoscopy Family History Brother No problems noted. Father , at age 93 Dementia Parkinson disease Mother , at age 75 No problems noted. Denies family history of Diabetes CAD (coronary artery disease) Clotting disorder Chronic kidney disease (CKD) Suicide Anesthesia complication Bleeding disorder Lung disease Cancer Stroke Social History Smoking and tobacco/nicotine status: never used tobacco/nicotine Alcohol intake: current Alcohol intake frequency: holidays/special occasions only Substance/Drug Use: never Housing: House Marital status: / Current occupational status: retired Vitals/I&O/Wt Last Vital Signs Temp 98.2 F 01/26/24 08:00 Pulse 101 H 01/26/24 08:00 Resp 26 H 01/26/24 08:00 BP 166/104 01/26/24 08:00 Pulse Ox 96 01/26/24 08:00 O2 Del Method Room Air 01/26/24 08:00 01/25/24 01/26/24 01/26/24 22:59 06:59 14:59 Intake Total 500 / 500 360 / 360 Output Total 150 / 150 Balance 500 / 500 -150 / 350 360 / 360 Weight last 48 hrs Weight 182 lb 8 oz Weight 180 lb Weight 186 lb 6.4 oz Weight 180 lb Physical Exam 2 Narrative: On physical exam patient is alert and oriented. Patient's leg strength was tested he has 5 out of strength bilaterally. Sensation intact bilaterally. Deep tendon reflexes are 1 out of 4. Data 01/25/24 21:08 01/25/24 21:08 A&P Assessment and plan (1) Lumbar stenosis with neurogenic claudication: Patient MRIs reviewed he does have severe stenosis at L4-5 L5-S1. However patient never had the symptoms before. At this point I am unsure that this is from his back causing compression on the nerves. He does not have any weakness on physical exam or any decrease in sensation. Or any loss in significant deep tendon reflexes that would be expected. At this point would possibly put him on a steroid taper to see if he has improvement. Will see him in the clinic on to see if he has any improvement. However moment unsure if this is coming from his back. Coding Level of Care Code Acute [facility] Diagn[facility] Lumbar stenosis with neurogenic claudication M48.062
--- NOTE | 2024-01-26 11:50 | PM.DCS ---
Discharge Providers Date of Admission: 01/26/24 02:23 Date of Discharge: January 26, 2024 Attending Provider at Admission: Jimbo Torres MD Attending Provider at Discharge: Tasha Meadows MD Diagnoses at Discharge Discharge Diagnosis (1) Lumbar stenosis with neurogenic claudication: Status: Acute Reason for Visit Reason for Visit: NACK INJURY Hospital Course Hospital Course Patient is a noncompliant person has not been taking his beta-antoinette or Eliquis. He reported that he could not walk initially. He stated that he had apparently a syncopal episode however upon asking again his story changed. He did complain of some back pain. He says the pain acutely started few days ago however when later asked he stated that it started yesterday. However for further workup MRI lumbar spine and cervical spine were obtained which did show spinal stenosis however his symptoms are none consistent with his imaging findings. It is unclear what true symptoms are as his story does change. He does have a evidence of memory loss difficulty with history.. Discussed with patient's daughter over the phone who states he is very functional and lives alone at home. There is a lot of family support present. Family will be coming to pick him up. Discussed with family regarding compliance to medications and follow-up with spine surgery as an outpatient. At this time discussed with patient and he is willing to go home. He has bilateral leg weakness has resolved. Apparently is more subjective when standing however he did walk and at that time did not experience any issues. Patient will be discharged home at this time with refills for his medications and to follow-up with spine surgeon as an outpatient. Physical Exam Narrative: General: Alert oriented x3, very poor historian HEENT: Normocephalic, atraumatic, EOMI, b room air Cardio: Regular rate rhythm, normal S1-S2 Respiratory: Clear to auscultation bilaterally no wheezes no rhonchi no crackles GI: Abdomen soft, nontender, nondistended, bowel sounds + Behavior: Appropriate and cooperative Extremities: No edema bilateral lower extremities Discharge Data Studies Completed and Pending Completed Studies During Hospitalization Category Date Time Status CT lumbar spine wo con* [id number] Stat Cat Scan 01/25/24 22:55 Completed CTA head neck [CT angio headneck* [id number]] Stat Cat Scan 01/25/24 22:55 Completed XR chest 1V portable [id number] Stat Exams 01/25/24 20:49 Completed MR cervical spin wo con* [id number] Routine MRI 01/26/24 03:16 Completed MR lumbar spine wo con* [id number] Routine MRI 01/26/24 03:16 Completed Pending at discharge Category Date Time Status Complete Blood Count w/Auto AM LABS Lab 01/27/24 04:00 Ordered Comprehensive Metabolic Panel AM LABS Lab 01/27/24 04:00 Ordered Magnesium AM LABS Lab 01/27/24 04:00 Ordered CV. echo complete* [id number] Routine Ultrasound 01/26/24 03:16 Taken Radiology Impressions Chest X-Ray 01/25/24 20:49 IMPRESSION: Negative for acute pathology. Head/Neck CTA 01/25/24 22:55 IMPRESSION: 1. No evidence of acute intracranial hemorrhage, mass effect, or midline shift. 2. Atherosclerotic disease of the intracranial arterial visits as outlined above. 3. No large vessel occlusion, aneurysm, or hemodynamically significant stenosis in the head. IMPRESSION: 1. 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 2. No large vessel occlusion or hemodynamically significant stenosis in the neck. 3. Cystic lesion with air-fluid level in the right lung apex. CT of the a nonemergent CT of the chest is recommended for further evaluation. 4. Cervical spondylosis. REFERENCES: NASCET CRITERIA. The degree of stenosis in the cervical segment of the internal carotid artery is based on NASCET criteria. Normal is no stenosis. Mild is less than 50% stenosis. Moderate is 50-69% stenosis. Severe is 70% to 99% stenosis. Total occlusion is no detectable patent lumen. ADDENDUM: 01/26/24 0212 ADDENDUM: Findings were discussed with FOSTER Ogden at 01/26/2024 2:07 AM INSTRUCTIONAL TECHNOLOGY INSTRUCTOR. Dr. Mendez relates that the patient had sudden onset bilateral lower extremity weakness and discoordination, and reportedly cannot walk. The degenerative changes in the cervical spine appear chronic, and while there is some mass effect upon the thecal sac from the degenerative pannus by the odontoid process, this is not resulting in severe spinal canal stenosis or obvious compression of the cervicomedullary junction. Would consider further evaluation with MRI spine, with inclusion of the thoracic and lumbar spine given the lower extremity weakness. Lumbar Spine CT 01/25/24 22:55 IMPRESSION: Negative for acute lumbar spine pathology. COMMENTS: Consistent with the [employer]'s Incidental Findings Committee white paper (J Am Eyal Radiol 2018): Any incidental renal lesion less than 1 cm or classified as too small to characterize, or any incidental cystic renal lesion characterized as simple-appearing, is likely benign. No follow-up imaging is recommended for these lesions per consensus recommendations based on imaging criteria. Cervical Spine MRI 01/26/24 03:16 IMPRESSION: 1. Progression of degenerative cervical spondylosis since 2011 and stenosis. 2. Multilevel central and foraminal stenosis on the basis of osteophytes, disc and facet disease. 3. C5-6: Moderate central with severe bilateral foraminal stenosis. 4. C6-7: Moderate central with severe RIGHT and moderate LEFT foraminal stenosis. 5. C7-T1: Severe bilateral foraminal stenosis. 6. C2-3: Moderate LEFT foraminal stenosis. 7. C3-4 mild to moderate bilateral foraminal stenosis. 8. C4-5 moderate RIGHT and mild LEFT foraminal stenosis. Lumbar Spine MRI 01/26/24 03:16 IMPRESSION: 1. Significant progression of stenosis and rotary scoliosis and facet arthropathy since 2017. Stenosis is due to combination of scoliosis, osteophytosis, disc disease, facet and ligamentum flavum disease. 2. Degenerative RIGHT rotary scoliosis. 3. L3-4: Moderate to severe central with severe bilateral subarticular recess and foraminal stenosis. 4. L4-5 and L5-S1: Severe central, bilateral subarticular recess and foraminal stenosis. 5. L2-3: Moderate central with severe bilateral subarticular recess and foraminal stenosis. 6. L1-2: Mild central with moderate bilateral foraminal stenosis. Laboratory Results WBC 6.80 10^3/uL (3.29-11.43) 01/25/24 21:08 RBC 3.77 10^6/uL (3.85-5.65) L 01/25/24 21:08 Hgb 12.40 g/dL (11.27-16.99) 01/25/24 21:08 Hct 37.6 % (37-53) 01/25/24 21:08 MCV 99.7 fl (82-101) 01/25/24 21:08 MCH 32.9 pg (27-33) 01/25/24 21:08 MCHC 33.0 g/dL (30-55) 01/25/24 21:08 RDW 14.5 % (12.1-15.1) 01/25/24 21:08 Plt Count 224 10^3/cmm (157-399) 01/25/24 21:08 MPV 10.3 fL (7.4-10.4) 01/25/24 21:08 Neut % (Auto) 72.1 % 01/25/24 21:08 Lymph % (Auto) 14.7 % 01/25/24 21:08 [place] % (Auto) 11.2 % 01/25/24 21:08 Eos % (Auto) 1.3 % 01/25/24 21:08 Baso % (Auto) 0.4 % 01/25/24 21:08 Neut # (Auto) 4.90 10^3/uL (1.8-7.7) 01/25/24 21:08 Lymph # (Auto) 1.0 10^3/uL (0.8-4.8) 01/25/24 21:08 [place] # (Auto) 0.8 10^3/uL (0.2-0.9) 01/25/24 21:08 Eos # (Auto) 0.1 10^3/uL (0.0-0.8) 01/25/24 21:08 Baso # (Auto) 0.0 10^3/uL (0.0-0.1) 01/25/24 21:08 Nucleated RBC % (auto) 0 % 01/25/24 21:08 Nucleated RBCs # 0.0 /100WBC 01/25/24 21:08 PT 16.60 SECONDS (12.1-14.9) H 01/25/24 21:08 INR 1.29 (0.8-1.2) H 01/25/24 21:08 APTT 30.4 SECONDS (23.9-36.7) 01/25/24 21:08 Sodium 137 mmol/L (136-145) 01/25/24 21:08 Potassium 3.8 mmol/L (3.5-5.1) 01/25/24 21:08 Chloride 101 mmol/L (98-107) 01/25/24 21:08 Carbon Dioxide 26 mmol/L (22-29) 01/25/24 21:08 Anion Gap 13.8 (5-19) 01/25/24 21:08 BUN 14 mg/dL (8-23) 01/25/24 21:08 Creatinine 1.3 mg/dL (0.7-1.2) H 01/25/24 21:08 GFR Calculation Not Reportable 01/25/24 21:08 Glucose 120 mg/dL (65-115) H 01/25/24 21:08 Calculated Osmolality 286 mOsm/kg (285-295) 01/25/24 21:08 Calcium 9.2 mg/dL (8.5-10.5) 01/25/24 21:08 Magnesium 2.0 mg/dL (1.7-2.3) 01/25/24 21:08 Total Bilirubin 1.6 mg/dL (0.15-1.2) H 01/25/24 21:08 AST 16 U/L (0-40) 01/25/24 21:08 ALT 8 U/L (0-41) 01/25/24 21:08 Alkaline Phosphatase 89 U/L (40-130) 01/25/24 21:08 Troponin T Baseline 19 ng/L (0-15) H 01/25/24 21:08 Troponin T 120 Minute 16.39 ng/L (0-15) H 01/25/24 23:01 Delta Troponin T -2.61 ABS# (0-10) L 01/25/24 23:01 Troponin T Hi Sens 6Hr 16.84 ng/L (0-15) H 01/26/24 03:10 Troponin T Hi Sens 6Hr Delta -2.16 ng/L (0-12) L 01/26/24 03:10 NT-Pro-B Natriuret Pep 2345 pg/mL (0-450) H 01/25/24 21:08 Total Protein 7.0 g/dL (6.6-8.7) 01/25/24 21:08 Albumin 4.0 g/dL (3.5-5.2) 01/25/24 21:08 Globulin 3.0 g/dL (1.3-4.6) 01/25/24 21:08 Vitamin B12 162 pg/mL (232-1245) L 01/25/24 21:08 TSH 5.08 uIU/mL (0.27-4.20) H 01/25/24 21:08 Urine Color Yellow (Yellow) 01/25/24 23:50 Urine Appearance Clear (CLEAR) 01/25/24 23:50 Urine pH 6.0 (5-7) 01/25/24 23:50 Ur Specific [place] 1.088 (1.005-1.030) H 01/25/24 23:50 Urine Protein 1+ (Negative) A 01/25/24 23:50 Urine Glucose (UA) Negative (Normal) 01/25/24 23:50 Urine Ketones Negative (Negative) 01/25/24 23:50 Urine Blood Non-haemolysed trace (Negative) 01/25/24 23:50 Urine Nitrate Negative (Negative) 01/25/24 23:50 Urine Bilirubin Negative (Negative) 01/25/24 23:50 Urine Urobilinogen 1.0 mg/dL (Negative) 01/25/24 23:50 Ur Leukocyte Esterase Negative (Negative) 01/25/24 23:50 Urine RBC 6-10 /hpf (0-2) 01/25/24 23:50 Urine WBC 0-5 /hpf (0-5) 01/25/24 23:50 Ur Squamous Epith Cells 0-5 /hpf (0-5) 01/25/24 23:50 Amorphous Sediment Not Reportable 01/25/24 23:50 Urine Bacteria None seen /hpf (NONE) 01/25/24 23:50 Hyaline Casts 3.04 /lpf 01/25/24 23:50 Urine Mucus Trace /hpf 01/25/24 23:50 Vitals Last Vital Signs Temp 98.0 F 01/26/24 10:56 Pulse 88 01/26/24 10:56 Resp 19 H 01/26/24 10:56 BP 150/94 01/26/24 10:56 Pulse Ox 95 01/26/24 10:56 O2 Del Method Room Air 01/26/24 10:56 Discharge Plan Discharge Patient Disposition: Home Condition: Stable Prescriptions: New losartan 50 mg Tablet 25 mg PO DAILY Qty: 60 0RF metoprolol tartrate 25 mg Tablet 25 mg PO BID@0900,2100 Qty: 60 0RF Continued aspirin 81 mg Tablet,Delayed Release (Dr/Ec) 81 mg PO QAM Qty: 30 0RF Eliquis 5 mg tablet 5 mg PO DAILY No Action prednisone 20 mg tablet 20 mg PO DAILY Qty: 15 0RF Rx Instructions: 60mg for three days, 40mg for two days, 20mg for two days Eliquis 5 mg tablet 5 mg PO BID Qty: 60 0RF metoprolol succinate [Toprol XL] 50 mg tablet extended release 24 hr 75 mg PO DAILY Qty: 30 0RF Discharge Orders: Discharge Order (Routine); Ordered 01/26/24 Ordered By: Tasha Meadows Referrals: Chuck Gardner DO [Physician] - 01/29/24 1:00 pm (jan 28) Discharge Diet: Cardiac Discharge Activity: Resume usual activity Patient Instructions: Opioid Safety Activity Restrictions/Additional Instructions: Please follow-up with your primary care doctor within 4 to 7 days of discharge. Please also follow-up with Dr. Gardner upcoming . Discharge Attestations Time Spent in Discharge Care*: greater than 30 min Quality Metrics Clinical Quality Measures [ No reported AMI, CVA or VTE this stay] Coding Level of Care Code Acute Code for [facility] Diagnoses Lumbar stenosis with neurogenic claudication M48.062
== END 2024-01-26 14:58 | disposition home or self-care (01) ==
LOC: ER 01-26 01:10 → CSU 01-26 02:42
PROVIDERS: Admitting Provider Internal Medicine; Emergency Provider Emergency Medicine; Visit Provider Internal Medicine
DX: M48.062 Spinal stenosis, lumbar region with neurogenic claudication (principal); R55 Syncope and collapse; I48.91 Unspecified atrial fibrillation; E78.5 Hyperlipidemia, unspecified; I48.20 Chronic atrial fibrillation, unspecified; I25.10 Atherosclerotic heart disease of native coronary artery without angina pectoris; K21.9 Gastro-esophageal reflux disease without esophagitis; M79.7 Fibromyalgia
CPT/HCPCS: 36415; 70496; 70498; 71045; 72131; 72141; 72148; 80053; 81001; 82607; 83735; 83880; 84443; 84484; 85025; 85610; 85730; 93005; 93306; 96361; 96372; 96374; 97116; 97161; 99285; G0378; J1650; J3420; J3490; J7040

== ENCOUNTER → 2024-01-29 13:02 | Outpatient (BNVA) | payer MEDICARE, MEDICAID, SELFPAY | PROVIDERS: Visit Provider Orthopaedic Surgery | DX: M54.9 Dorsalgia, unspecified (principal); M48.062 Spinal stenosis, lumbar region with neurogenic claudication | CPT/HCPCS: 99213 ==

== ENCOUNTER 2024-02-02 07:33 | Emergency (ER) | payer MEDICARE, MEDICAID, SELFPAY ==
[2024-02-02 07:34] VITALS: BP 187/135; PULSE 90; RESP 18; TEMP 37; O2SAT 93; BMI 28.1
--- NOTE | 2024-02-02 07:36 | XR_ITS ---
WS: [id number] Portable AP upright chest, 02/02/2024 Clinical Data: dyspnea/cough Comparison: Portable chest, 01/25/2024 Findings: No nodules, masses or effusions are seen. The heart is slightly enlarged. The pulmonary vas cularity is not increased. No pneumonia or pneumothorax is seen. The aortic arch shows tortuosity. Th ere are monitor leads on the chest wall. There are orthopedic anchors in the right humeral head. XR/XR chest 1V portable [id number] Impression: Cardiomegaly and atherosclerosis.
--- NOTE | 2024-02-02 07:36 | ECG_ITS ---
[facility] Test Date: 2024-02-02 Pat Name: David Orozco Department: Room: Gender: Male Obiee Report Developer: : 1940 Requested By: Glynn Stephen Order Number: [id number] Jessica MD: VIRGINIA FORTE Measurements Intervals [place] Rate: 96 P: 0 IL: 0 QRS: -6 QRSD: 90 T: 45 QT: 344 QTc: 436 Interpretive Statements ATRIAL FIBRILLATION POSSIBLE ANTERIOR MYOCARDIAL INFARCTION , PROBABLY OLD [30 ms Q WAVE IN V3/V4, OR R < 0.2 mV IN V4] ABNORMAL RHYTHM ECG Compared to ECG 01/25/2024 21:15:05 Myocardial infarct finding now present Electronically Signed On 02-02-2024 18:53:56 SENIOR CYTOGENETICS LABORATORY DIRECTOR by VIRGINIA FORTE [email or web address]
[2024-02-02 07:40] VITALS: BP 187/135; PULSE 90; RESP 18; TEMP 37; O2SAT 93
[2024-02-02] MEDS: metoprolol tartrate 25 mg Tablet PO ×2 (07:53→10:22)
[2024-02-02 08:27] VITALS: BP 164/109; PULSE 97; RESP 18; O2SAT 97
[2024-02-02 08:50] LABS: Alanine Aminotransferase 62 U/L (0-41); Albumin Level 3.8 g/dL (3.5-5.2); Alkaline Phosphatase 78 U/L (40-130); Anion Gap 20.8 (5-19); Aspartate Amino Transferase 62 U/L (0-40); Blood Urea Nitrogen 31 mg/dL (8-23); Calcium 9.5 mg/dL (8.5-10.5); Carbon Dioxide 20 mmol/L (22-29); Chloride 100 mmol/L (98-107); Creatinine Clr Calc Pharmacy 40.7076; Globulin 3.6 g/dL (1.3-4.6); Glucose 87 mg/dL (65-115); Osmolality Calculated 288 mOsm/kg (285-295); Potassium 4.8 mmol/L (3.5-5.1); Sodium 136 mmol/L (136-145); Total Bilirubin 2.8 mg/dL (0.15-1.2); Total Protein 7.4 g/dL (6.6-8.7)
[2024-02-02 08:51] VITALS: BP 160/118; PULSE 99; RESP 14; O2SAT 95
--- NOTE | 2024-02-02 08:54 | ED_ITS ---
HPI - SOB/Dyspnea 2 General: Chief Complaint: Shortness of Breath/Dyspnea Stated Complaint: SOB Time Seen by Provider: 02/02/24 07:35 History of Present Illness: HPI Narrative: 83 male with a history of atrial fibrill ation frequently is noncompliant with his medications. From the looks his medication list of medicines have changed we had titrated him up because he been in the ER so many times does not look like he ever made it to the doctor's office. He had repeatedly shown A-fib with RVR often because of noncompliance with medications we switched him to a once a day to try to make complaints easier to achieve. At this point pharmacy techs have verified his med list and have him down his metoprolol 25 twice daily. Looking through his old records I do not see that he has been to cardiology clinic in had instructions to change his medicines from them. Associated symptoms: Reports palpitations; Deny abdominal pain, chest pain or fever(s) Related Data Home Medications Medication Instructions Recorded Confirmed apixaban 5 mg tablet (Eliquis) 5 mg PO DAILY 07/02/23 02/02/24 Previous Rx's Medication Instructions Recorded aspirin 81 mg tablet,delayed 81 mg PO QAM #30 tabs 06/26/23 release losartan 50 mg tablet 25 mg (1/2 x 50 mg) PO DAILY #60 01/26/24 tabs metoprolol tartrate 25 mg tablet 25 mg PO BID@0900,2100 #60 tabs 01/26/24 prednisone 20 mg tablet 20 mg PO DAILY #15 tabs 01/29/24 apixaban 5 mg tablet (Eliquis) 5 mg PO BID #60 tabs 02/02/24 metoprolol succinate 50 mg 75 mg (1.5 x 50 mg) PO DAILY #30 02/02/24 tablet,extended release 24 hr tabs (Toprol XL) Allergies Allergy/AdvReac Type Severity Reaction Status Date / Time No Known Allergies Allergy Verified 01/29/24 13:09 Review of Systems 2 Const: Denies: fever(s) or chills Card: Reports: palpitations; Denies: chest pain Resp: Reports: dyspnea GI: Denies: abdominal pain : Denies: dysuria, urinary frequency or urinary urgency Musc: Denies: neck pain or back pain Skin/Breast: Denies: rash PFSH ED 2 PFSH: Medical History Left ureteral calculus Renal mass Calculus of kidney with calculus of ureter History of atrial fibrillation Dyslipidemia (high LDL; low HDL) Chronic episodic atrial fibrillation Benign essential HTN Atherosclerotic heart disease of [place] coronary artery without angina pectoris Insomnia History of colon polyps Lumbar disc disease GERD (gastroesophageal reflux disease) Fibromyalgia Surgical History History of cardiac cath History of cholecystectomy History of shoulder surgery History of colonoscopy Family History Brother No problems noted. Father , at age 93 Dementia Parkinson disease Mother , at age 75 No problems noted. Denies family history of Diabetes CAD (coronary artery disease) Clotting disorder Chronic kidney disease (CKD) Suicide Anesthesia complication Bleeding disorder Lung disease Cancer Stroke Social History Smoking and tobacco/nicotine status: former use of tobacco/nicotine Alcohol intake: current Alcohol intake frequency: holidays/special occasions only Substance/Drug Use: never Housing: House Marital status: / Current occupational status: retired Physical Exam 2 Const: COMMON NORMALS: no acute distress GENERAL APPEARANCE: cooperative and comfortable ORIENTATION/CONSCIOUSNESS: Yes awake, Yes oriented to person, Yes oriented to place and Yes oriented to time HENMT: COMMON NORMALS: normocephalic, atraumatic and hearing grossly normal bilaterally HEAD & SCALP: normocephalic and atraumatic Resp: COMMON NORMALS: normal respiratory effort, No retractions, No use of accessory muscles and clear to auscultation bilaterally AUSCULTATION: clear to auscultation bilaterally Cardio: COMMON NORMALS: regular rate, regular rhythm and No murmurs present (Cardio) RATE: regular rate RHYTHM: regular rhythm GI: COMMON NORMALS: Soft to palpation and No hepatosplenomegaly present A USCULTATION: Yes normoactive bowel sounds PALPATION: Yes Soft to palpation, No Tenderness to palpation present (GI), No Guarding due to palpation present (GI) and Yes No hepatosplenomegaly present Extremity: COMMON NORMALS: normal to inspection, capillary refill normal, no clubbing, cyanosis or edema, no calf tenderness and no pedal edema Neuro: SENSORIUM/ORIENTATION: Yes oriented to person, Yes oriented to place and Yes oriented to time Skin: COMMON NORMALS: no rashes or lesions noted GENERAL SKIN EXAM: no rashes or lesions noted Course 2 Vital Signs: Vital signs: Vital Signs Temperature 98.6 F 02/02/24 07:40 Pulse Rate 79 02/02/24 10:21 Respiratory Rate 14 02/02/24 08:51 Blood Pressure 145/108 02/02/24 10:21 Pulse Oximetry 95 02/02/24 10:21 Oxygen Delivery Me thod Room Air 02/02/24 08:51 MDM - SOB/Dyspnea Medical Decision Making Reviewing the chart while we have not seen him for some time does not appear Mr. Orozco has made it to the cloth colors examiner office. We had previously had him on metoprolol succinate and looks like he has reverted back to the metoprolol tartrate I do not see where that change was made in the chart is suspected manage is been a prescription ran out. I do think he be better served by a long-acting metoprolol to help improve his compliance. Will give him another prescription try to get him set up to see cardiology his rate is improved and now. His blood pressure is still markedly elevated will increase him to 75 once a day of the metoprolol succinate. I encouraged him to follow-up with cardiology. Patient tells me he also is out of his Eliquis we will refill that as well. Medical Records I reviewed the patient's medical records. Lab Data I reviewed the patient's lab results. 02/02/24 08:23 02/02/24 08:23 Labs/Radiology: Radiology Impressions Chest X-Ray 02/02/24 07:36 Impression: Cardiomegaly and atherosclerosis. Laboratory Results WBC 9.53 10^3/uL (3.29-11.43) 02/02/24 08:23 RBC 4.02 10^6/uL (3.85-5.65) 02/02/24 08:23 Hgb 13.00 g/dL (11.27-16.99) 02/02/24 08:23 Hct 41.2 % (37-53) 02/02/24 08:23 MCV 102.5 fl (82-101) H 02/02/24 08:23 MCH 32.3 pg (27-33) 02/02/24 08:23 MCHC 31.6 g/dL (30-55) 02/02/24 08:23 RDW 14.7 % (12.1-15.1) 02/02/24 08:23 Plt Count 220 10^3/cmm (157-399) 02/02/24 08:23 MPV 11.2 fL (7.4-10.4) H 02/02/24 08:23 Neut % (Auto) 76.1 % 02/02/24 08:23 Lymph % (Auto) 10.4 % 02/02/24 08:23 [place] % (Auto) 12.6 % 02/02/24 08:23 Eos % (Auto) 0.1 % 02/02/24 08:23 Baso % (Auto) 0.1 % 02/02/24 08:23 Neut # (Auto) 7.25 10^3/uL (1.8-7.7) 02/02/24 08:23 Lymph # (Auto) 1.0 10^3/uL (0.8-4.8) 02/02/24 08:23 [place] # (Auto) 1.2 10^3/uL (0.2-0.9) H 02/02/24 08:23 Eos # (Auto) 0.0 10^3/uL (0.0-0.8) 02/02/24 08:23 Baso # (Auto) 0.0 10^3/uL (0.0-0.1) 02/02/24 08:23 Nucleated RBC % (auto) 0 % 02/02/24 08:23 Nucleated RBCs # 0.0 /100WBC 02/02/24 08:23 Sodium 136 mmol/L (136-145) 02/02/24 08:23 Potassium 4.8 mmol/L (3.5-5.1) 02/02/24 08:23 Chloride 100 mmol/L (98-107) 02/02/24 08:23 Carbon Dioxide 20 mmol/L (22-29) L 02/02/24 08:23 Anion Gap 20.8 (5-19) H 02/02/24 08:23 BUN 31 mg/dL (8-23) H 02/02/24 08:23 Creatinine 1.4 mg/dL (0.7-1.2) H 02/02/24 08:23 GFR Calculation Not Reportable 02/02/24 08:23 Glucose 87 mg/dL (65-115) 02/02/24 08:23 Calculated Osmolality 288 mOsm/kg (285-295) 02/02/24 08:23 Calcium 9.5 mg/dL (8.5-10.5) 02/02/24 08:23 Total Bilirubin 2.8 mg/dL (0.15-1.2) H 02/02/24 08:23 AST 62 U/L (0-40) H 02/02/24 08:23 ALT 62 U/L (0-41) H 02/02/24 08:23 Alkaline Phosphatase 78 U/L (40-130) 02/02/24 08:23 Total Protein 7.4 g/dL (6.6-8.7) 02/02/24 08:23 Albumin 3.8 g/dL (3.5-5.2) 02/02/24 08:23 Globulin 3.6 g/dL (1.3-4.6) 02/02/24 08:23 All radiology interpretation(s) finalized by discharge Discharge Plan Discharge Patient Disposition: Home Clinical Impression: A-fib Qualifiers: Atrial fibrillation type: longstanding persistent Qualified Code(s): I48.11 - Longstanding persistent atrial fibrillation Hypertension Qualifiers: Hypertension type: unspecified Qualified Code(s): I10 - Essential (primary) hypertension Condition: Stable Prescriptions: New Eliquis 5 mg tablet 5 mg PO BID Qty: 60 0RF metoprolol succinate [Toprol XL] 50 mg tablet extended release 24 hr 75 mg PO DAILY Qty: 30 0RF No Action prednisone 20 mg tablet 20 mg PO DAILY Qty: 15 0RF Rx Instructions: 60mg for three days, 40mg for two days, 20mg for two days aspirin 81 mg Tablet,Delayed Release (Dr/Ec) 81 mg PO QAM Qty: 30 0RF Eliquis 5 mg tablet 5 mg PO DAILY losartan 50 mg Tablet 25 mg PO DAILY Qty: 60 0RF metoprolol tartrate 25 mg Tablet 25 mg PO BID@0900,2100 Qty: 60 0RF Discharge Orders: Discharge ED (Routine); Ordered 02/02/24 Ordered By: Glynn David Discharge Diet: Cardiac and Low Salt Discharge Activity: Resume usual activity Patient Instructions: Opioid Safety, Pain Management Activity Restrictions/Additional Instructions: Thank you for choosing [facility] for your healthcare needs today. It is very important that you follow up as instructed or that you return to the Emergency Department should you have concerns or if your condition changes or worsens in any way. You were seen in the emergency room with complaints of shortness of breath. Believe this is related to your atrial fibrillation is very important that you take your medicine regularly. To help make this process easier recommend that you switch to metoprolol succinate. You can take this medicine once a day rather than having to take the other version twice a day. Recommend you take a tablet and a half once daily. You had mentioned that you were also out of your Eliquis you are given a 30-day supply. It is very important you follow-up with your cloth colors examiner for maintenance of these issues going forward. Coding Level of Care Code ED Hair And Makeup Designer for Victor M Hale
[2024-02-02 08:56] LABS: Basophils % 0.1 %; Eosinophils % 0.1 %; Hematocrit 41.2 % (37-53); Lymphocytes % 10.4 %; Mean Corpuscular HGB Conc 31.6 g/dL (30-55); Mean Corpuscular Hemoglobin 32.3 pg (27-33); Mean Corpuscular Volume 102.5 fl (82-101); Mean Platelet Volume 11.2 fL (7.4-10.4); Monocytes # 1.2 10^3/uL (0.2-0.9); Monocytes % 12.6 %; Neutrophils # 7.25 10^3/uL (1.8-7.7); Neutrophils % 76.1 %; Nucleated Red Blood Cells % 0 %; Platelet Count 220 10^3/cmm (157-399); Red Blood Count 4.02 10^6/uL (3.85-5.65); Red Cell Distribution Width 14.7 % (12.1-15.1); White Blood Count 9.53 10^3/uL (3.29-11.43)
[2024-02-02 10:21] VITALS: BP 145/108; PULSE 79; O2SAT 95
--- NOTE | 2024-02-02 10:23 | PC.NURSE ---
PATIENT DID NOT TAKE MORNING MEDS. PATIENT GIVEN METOPROLOL PRIOR TO DISCHARGE.
== END 2024-02-02 10:28 | disposition home or self-care (01) ==
PROVIDERS: Emergency Provider Family Medicine
DX: I48.11 Longstanding persistent atrial fibrillation (principal); I10 Essential (primary) hypertension; Z79.82 Long term (current) use of aspirin; Z79.01 Long term (current) use of anticoagulants; Z87.891 Personal history of nicotine dependence; E78.5 Hyperlipidemia, unspecified; I25.10 Atherosclerotic heart disease of native coronary artery without angina pectoris
CPT/HCPCS: 36415; 71045; 80053; 85025; 93005; 99285

== ENCOUNTER 2024-02-06 19:49 | Emergency (ER) | payer MEDICARE, MEDICAID, SELFPAY ==
[2024-02-06 19:50] VITALS: PULSE 83; RESP 18; TEMP 36.5; O2SAT 98; BMI 27.3
--- NOTE | 2024-02-06 20:01 | XRR_ITS ---
PROCEDURE INFORMATION: Exam: XR Left Elbow Exam date and time: 02/06/2024 8:25 PM Age: 83 years old Clinical indication: Left; Patient HX: Lt elbow pain after fall with limited rom TECHNIQUE: Imaging protocol: Radiologic exam of the left elbow. Views: 3 or more views. COMPARISON: No relevant prior studies available. FINDINGS: Bones/joints: No definite acute fracture or dislocation. Moderate degenerative changes of the elbow. Mild cortical irregularity at the radial neck likely representing a marginal osteophyte. Soft tissues: Normal. XR/XR elbow LT min 3V* [id number] IMPRESSION: No acute fracture or dislocation.
[2024-02-06] MEDS: ketorolac 60 mg/2 mL INJ IM (20:09)
--- NOTE | 2024-02-06 20:17 | W.ED.EXTPRO ---
HPI - Extremity Problem General: Chief complaint: Extremity Injury, Upper Stated complaint: left arm pain Time Seen by Provider: 02/06/24 19:50 History of Present Illness: Presents by EMS for complaints of left arm pain, nontraumatic. He states his left arm hurts from his wrist all the way up to his shoulder. He denies any trauma. Does hurt to move or palpate. When family arrived they said he did have a fall several days ago and this is what the pain is from probably. Patient denies any other symptoms at this time. Related Data Home Medications Medication Instructions Recorded Confirmed apixaban 5 mg tablet (Eliquis) 5 mg PO DAILY 07/02/23 02/02/24 Previous Rx's Medication Instructions Recorded aspirin 81 mg tablet,delayed 81 mg PO QAM #30 tabs 06/26/23 release losartan 50 mg tablet 25 mg (1/2 x 50 mg) PO DAILY #60 01/26/24 tabs metoprolol tartrate 25 mg tablet 25 mg PO BID@0900,2100 #60 tabs 01/26/24 prednisone 20 mg tablet 20 mg PO DAILY #15 tabs 01/29/24 apixaban 5 mg tablet (Eliquis) 5 mg PO BID #60 tabs 02/02/24 metoprolol succinate 50 mg 75 mg (1.5 x 50 mg) PO DAILY #30 02/02/24 tablet,extended release 24 hr tabs (Toprol XL) Allergies Allergy/AdvReac Type Severity Reaction Status Date / Time No Known Allergies Allergy Verified 01/29/24 13:09 Review of Systems General: Reports: 10 or more systems reviewed and unremarkable except in HPI and below PFSH ED PFSH: Medical History Left ureteral calculus Renal mass Calculus of kidney with calculus of ureter History of atrial fibrillation Dyslipidemia (high LDL; low HDL) Chronic episodic atrial fibrillation Benign essential HTN Atherosclerotic heart disease of [place] coronary artery without angina pectoris Insomnia History of colon polyps Lumbar disc disease GERD (gastroesophageal reflux disease) Fibromyalgia Surgical History History of cardiac cath History of cholecystectomy History of shoulder surgery History of colonoscopy Family History Brother No problems noted. Father , at age 93 Dementia Parkinson disease Mother , at age 75 No problems noted. Denies family history of Diabetes CAD (coronary artery disease) Clotting disorder Chronic kidney disease (CKD) Suicide Anesthesia complication Bleeding disorder Lung disease Cancer Stroke Social History Smoking and tobacco/nicotine status: former use of tobacco/nicotine Alcohol intake: current Alcohol intake frequency: holidays/special occasions only Substance/Drug Use: never Housing: House Marital status: / Current occupational status: retired Physical Exam Const: COMMON NORMALS: no acute distress, average body habitus, patient oriented x3, no limitations, healthy appearing, alert and well nourished Neck/C-Spine: COMMON NORMALS: no JVD Chest: COMMONS NORMALS: normal inspection of the chest and normal palpation of entire chest wall Resp: COMMON NORMALS: normal respiratory effort, No retractions, No use of accessory muscles and clear to auscultation bilaterally AUSCULTATION: clear to auscultation bilaterally Cardio: COMMON NORMALS: no JVD, S1 normal heart sound present, S2 normal heart sound present, No gallops present (Cardio) and No clicks present (Cardio); negative for regular rate (Irregularly irregular rhythm) RATE: abnormal rate (Irregularly irregular rhythm) HEART SOUNDS: S1 normal heart sound present and S2 normal heart sound present GI: COMMON NORMALS: Normal to inspection, nondistended, normoactive bowel sounds present, Soft to palpation, non-tender, No hepatosplenomegaly present and no masses PALPATION: Yes Soft to palpation and Yes No hepatosplenomegaly present Extremity: NARRATIVE EXTREMITY EXAM: Tender with palpation over elbow and proximal forearm region as well as distal humerus region, no obvious deformity crepitus noted. Neuro: COMMON NORMALS: patient oriented x3 SENSORIUM/ORIENTATION: Yes alert Course Vital Signs: Vital signs: Vital Signs Temperature 97.7 F 02/06/24 19:50 Pulse Rate 112 H 02/06/24 20:43 Respiratory Rate 18 02/06/24 19:50 Blood Pressure 189/98 02/06/24 20:43 Pulse Oximetry 98 02/06/24 20:43 Oxygen Delivery Me thod Room Air 02/06/24 20:43 MDM - Extremity (Nontraumatic) Medical Decision Making X-rays read by radiologist as negative for fracture. Patient was given 60 mg Toradol IM. Patient be discharged home. Medical Records I reviewed the patient's medical records. Lab Data I reviewed the patient's lab results. Radiology Impressions Elbow X-Ray 02/06/24 20:01 IMPRESSION: No acute fracture or dislocation. All radiology interpretation(s) finalized by discharge Discharge Plan Discharge Patient Disposition: Home Clinical Impression: Arm pain, left, Fall Condition: Stable Prescriptions: No Action prednisone 20 mg tablet 20 mg PO DAILY Qty: 15 0RF Rx Instructions: 60mg for three days, 40mg for two days, 20mg for two days aspirin 81 mg Tablet,Delayed Release (Dr/Ec) 81 mg PO QAM Qty: 30 0RF Eliquis 5 mg tablet 5 mg PO DAILY losartan 50 mg Tablet 25 mg PO DAILY Qty: 60 0RF metoprolol tartrate 25 mg Tablet 25 mg PO BID@0900,2100 Qty: 60 0RF Eliquis 5 mg tablet 5 mg PO BID Qty: 60 0RF metoprolol succinate [Toprol XL] 50 mg tablet extended release 24 hr 75 mg PO DAILY Qty: 30 0RF Discharge Orders: Discharge ED (Routine); Ordered 02/06/24 Ordered By: Remy Melgoza Patient Instructions: Musculoskeletal Pain (ED) Activity Restrictions/Additional Instructions: Your x-ray is read by the radiologist as negative for acute fracture. Please continue take [id number] Tylenol as needed for pain. Please follow-up with your family practice doctor within the next 7 days for further evaluation treatment as needed. Coding Level of Care Code ED Paintings Conservator for Victor M Hale
[2024-02-06 20:43] VITALS: BP 189/98; PULSE 112; O2SAT 98
[2024-02-06] MEDS: HYDROcodone-acetaminophen 5-325 mg Tablet 1 TAB PO (21:48)
[2024-02-06 21:58] VITALS: BP 158/99; PULSE 87; O2SAT 97
== END 2024-02-06 21:58 | disposition home or self-care (01) ==
PROVIDERS: Emergency Provider Emergency Medicine
DX: M79.602 Pain in left arm (principal); Z79.82 Long term (current) use of aspirin; Z79.01 Long term (current) use of anticoagulants; Z87.891 Personal history of nicotine dependence; E78.5 Hyperlipidemia, unspecified; I25.10 Atherosclerotic heart disease of native coronary artery without angina pectoris; I10 Essential (primary) hypertension
CPT/HCPCS: 73080; 96372; 99284; J1885

== ENCOUNTER 2024-02-11 18:12 | Emergency (ER) | payer MEDICARE, MEDICAID, SELFPAY ==
[2024-02-11] VITALS (15 sets, daily range): BP systolic 111–146; BP diastolic 72–93; PULSE 78–88; RESP 12–19; TEMP 36.3; O2SAT 93–98; BMI 27.3
--- NOTE | 2024-02-11 18:17 | CTR_ITS ---
PROCEDURE INFORMATION: Exam: CT Head Without Contrast Exam date and time: 02/11/2024 6:56 PM Age: 83 years old Clinical indication: Injury or trauma; Fall; Blunt trauma (contusions or hematomas); Consciousness not specified; Injury date: 02/11/2024; Additional info: Fall, head injury TECHNIQUE: Imaging protocol: Computed tomography of the head without contrast. Radiation optimization: All CT scans at this facility use at least one of these dose optimization techniques: automated exposure control; mA and/or kV adjustment per patient size (includes targeted exams where dose is matched to clinical indication); or iterative reconstruction. COMPARISON: CT angio headneck* [id number] 01/25/2024 11:12 PM RADIATION DOSE METRICS: Total DLP (mGy-cm): 1363.89 FINDINGS: Brain: Similar generalized cortical volume loss. No hemorrhage. Periventricular and subcortical white matter hypodensities likely represent chronic small vessel ischemic changes. No mass effect. Cerebral ventricles: No ventriculomegaly. Pituitary gland and sella: Partially empty sella again noted. Paranasal sinuses: Visualized sinuses are unremarkable. No fluid levels. Mastoid air cells: Small right mastoid effusion. Orbital cavities: Bilateral lens replacements. Bones: Unremarkable. No acute fracture. Soft tissues: Unremarkable. CT/CT head wo con* [id number] IMPRESSION: 1. No acute intracranial findings. 2. Small right mastoid effusion.
--- NOTE | 2024-02-11 18:42 | W.ED.FALL ---
HPI - Fall General: Chief Complaint: Fall Stated Complaint: Fall Time Seen by Provider: 02/11/24 18:15 History of Present Illness: 83-year-old man who presents emergency room for having a fall. He is anticoagulated on Eliquis. He hit the back of his head. No loss of consciousness. No altered mental status. No focal motor deficits. EMS reports that persons that were there at the apartment complex so he may have some early dementia. Related Data Home Medications Medication Instructions Recorded Confirmed apixaban 5 mg tablet (Eliquis) 5 mg PO DAILY 07/02/23 02/02/24 Previous Rx's Medication Instructions Recorded aspirin 81 mg tablet,delayed 81 mg PO QAM #30 tabs 06/26/23 release losartan 50 mg tablet 25 mg (1/2 x 50 mg) PO DAILY #60 01/26/24 tabs metoprolol tartrate 25 mg tablet 25 mg PO BID@0900,2100 #60 tabs 01/26/24 prednisone 20 mg tablet 20 mg PO DAILY #15 tabs 01/29/24 apixaban 5 mg tablet (Eliquis) 5 mg PO BID #60 tabs 02/02/24 metoprolol succinate 50 mg 75 mg (1.5 x 50 mg) PO DAILY #30 02/02/24 tablet,extended release 24 hr tabs (Toprol XL) Allergies Allergy/AdvReac Type Severity Reaction Status Date / Time No Known Allergies Allergy Verified 02/11/24 18:26 Review of Systems Narrative: Constitutional symptoms: Negative except as documented in HPI. Skin symptoms: Negative except as documented in HPI. Eye symptoms: Negative except as documented in HPI. ENMT symptoms: Negative except as documented in HPI. Respiratory symptoms: Negative except as documented in HPI. Cardiovascular symptoms: Negative except as documented in HPI. Gastrointestinal symptoms: Negative except as documented in HPI. Genitourinary symptoms: Negative except as documented in HPI. Musculoskeletal symptoms: Negative except as documented in HPI. Neurologic symptoms: Negative except as documented in HPI. Psychiatric symptoms: Negative except as documented in HPI. Endocrine symptoms: Negative except as documented in HPI. [facility] ED PFSH: Medical History Left ureteral calculus Renal mass Calculus of kidney with calculus of ureter History of atrial fibrillation Dyslipidemia (high LDL; low HDL) Chronic episodic atrial fibrillation Benign essential HTN Atherosclerotic heart disease of [place] coronary artery without angina pectoris Insomnia History of colon polyps Lumbar disc disease GERD (gastroesophageal reflux disease) Fibromyalgia Surgical History History of cardiac cath History of cholecystectomy History of shoulder surgery History of colonoscopy Family History Brother No problems noted. Father , at age 93 Dementia Parkinson disease Mother , at age 75 No problems noted. Denies family history of Diabetes CAD (coronary artery disease) Clotting disorder Chronic kidney disease (CKD) Suicide Anesthesia complication Bleeding disorder Lung disease Cancer Stroke Social History Smoking and tobacco/nicotine status: former use of tobacco/nicotine Alcohol intake: current Alcohol intake frequency: holidays/special occasions only Substance/Drug Use: never Housing: House Marital status: / Current occupational status: retired Physical Exam Narrative: EXAM NARRATIVE: General: Alert, no acute distress. Skin: Warm, dry. Head: Normocephalic, atraumatic. Neck: Supple, trachea midline. Eye: Extraocular movements are intact. Ears, nose, mouth and throat: mucosa moist. Cardiovascular: Regular, Normal peripheral perfusion. Respiratory: Lungs are clear to auscultation, respirations are non-labored, breath sounds are equal, Symmetrical chest wall expansion. Gastrointestinal: Soft, Nontender, Non distended Musculoskeletal: Normal ROM, no deformity. Neurological: Alert and oriented, No focal neurological deficit observed. Psychiatric: Cooperative, appropriate mood & affect. Course Vital Signs: Vital signs: Vital Signs Temperature 97.4 F L 02/11/24 18:16 Pulse Rate 82 02/11/24 19:30 Respiratory Rate 13 02/11/24 19:30 Blood Pressure 128/93 02/11/24 19:10 Pulse Oximetry 96 02/11/24 19:30 Oxygen Delivery Me thod Room Air 02/11/24 18:16 MDM - Fall Medical Decision Making CT head: No acute intracranial process. no intracranial hemorrhage, no evidence of infarct. no evidence of acute fracture.This was reviewed and interpreted by myself the ER physician. Assessment and plan: Head injury Fall - Discharged home - Discussed plan with patient. Answered any questions. - Evaluation and treatment of this problem were appropriate in the emergency setting. Lab Data Radiology Impressions Head CT 02/11/24 18:17 IMPRESSION: 1. No acute intracranial findings. 2. Small right mastoid effusion. All radiology interpretation(s) finalized by discharge Discharge Plan Discharge Patient Disposition: Home Clinical Impression: Head injury Condition: Stable Prescriptions: No Action prednisone 20 mg tablet 20 mg PO DAILY Qty: 15 0RF Rx Instructions: 60mg for three days, 40mg for two days, 20mg for two days aspirin 81 mg Tablet,Delayed Release (Dr/Ec) 81 mg PO QAM Qty: 30 0RF Eliquis 5 mg tablet 5 mg PO DAILY losartan 50 mg Tablet 25 mg PO DAILY Qty: 60 0RF metoprolol tartrate 25 mg Tablet 25 mg PO BID@0900,2100 Qty: 60 0RF Eliquis 5 mg tablet 5 mg PO BID Qty: 60 0RF metoprolol succinate [Toprol XL] 50 mg tablet extended release 24 hr 75 mg PO DAILY Qty: 30 0RF Discharge Orders: Discharge ED (Routine); Ordered 02/11/24 Ordered By: Ally David Discharge Diet: Usual diet Discharge Activity: Increase activity as tolerated Patient Instructions: Fall Prevention for Older Adults (ED), Opioid Safety, Pain Management Activity Restrictions/Additional Instructions: Thank you for choosing [facility] for your healthcare needs today. Please realize this is an emergency room and that we are providing you with a medical screening exam and this may not be complete and all inclusive of all the testing and or work up that you may need to determine your ailment or severity of your illness. You have been screened and evaluated and felt safe for discharge. Health conditions do change or evolve sometimes and as such it is important that you follow up with your Primary Doctor to be re checked, 3-5 days is a general good time frame for follow up. You are always welcome to return to the ED for re assessment if your symptoms are worsening or you have new concerns Coding Level of Care Code ED Follow Up Clerk for Victor M Hale
--- NOTE | 2024-02-11 21:45 | PC.NURSE ---
This nurse spoke with patient's daughter, Sharri, who is coming to pick patient up from the emergency department.
== END 2024-02-11 22:17 | disposition home or self-care (01) ==
PROVIDERS: Emergency Provider Emergency Medicine
DX: S09.90XA Unspecified injury of head, initial encounter (principal); W19.XXXA Unspecified fall, initial encounter; Z79.01 Long term (current) use of anticoagulants; Z79.82 Long term (current) use of aspirin; Z87.891 Personal history of nicotine dependence; I25.10 Atherosclerotic heart disease of native coronary artery without angina pectoris; I10 Essential (primary) hypertension; E78.5 Hyperlipidemia, unspecified
CPT/HCPCS: 70450; 99284

== ENCOUNTER 2024-02-22 07:34 | Emergency (ER) | payer MEDICARE, MEDICAID, SELFPAY ==
[2024-02-22 07:35] VITALS: BP 184/120; PULSE 108; RESP 16; O2SAT 100
--- NOTE | 2024-02-22 07:41 | XRR_ITS ---
PROCEDURE INFORMATION: Exam: XR Chest Exam date and time: 02/22/2024 8:01 AM Age: 83 years old Clinical indication: Shortness of breath; Additional info: SOB TECHNIQUE: Imaging protocol: Radiologic exam of the chest. Views: 1 view. COMPARISON: CR XR chest 1V portable [id number] 02/02/2024 8:35 AM FINDINGS: Lungs: Unremarkable. No consolidation. Pleural spaces: Unremarkable. No pleural effusion. No pneumothorax. Heart/Mediastinum: The heart is enlarged. Vasculature: Unfolding of the thoracic aorta. Bones/joints: Moderate degenerative disease of bilateral acromioclavicular joints. Post right rotator cuff repair. There are moderate degenerative changes of the glenohumeral joint. There is narrowing of the left subacromial distance, consistent with chronic rotator cuff diseaseThe thoracic spine demonstrates mild degenerative changes at multiple levels. XR/XR chest 1V portable [id number] IMPRESSION: No acute cardiopulmonary process.
[2024-02-22 08:03] LABS: Basophils % 0.5 %; Eosinophils # 0.2 10^3/uL (0.0-0.8); Eosinophils % 2.9 %; Lymphocytes # 0.6 10^3/uL (0.8-4.8); Lymphocytes % 9.5 %; Mean Corpuscular HGB Conc 32.4 g/dL (30-55); Mean Corpuscular Hemoglobin 33.2 pg (27-33); Mean Corpuscular Volume 102.5 fl (82-101); Mean Platelet Volume 10.5 fL (7.4-10.4); Monocytes # 0.7 10^3/uL (0.2-0.9); Monocytes % 10.5 %; Neutrophils % 76.1 %; Nucleated Red Blood Cells % 0 %; Platelet Count 195 10^3/cmm (157-399); Red Blood Count 3.61 10^6/uL (3.85-5.65); Red Cell Distribution Width 14.9 % (12.1-15.1); White Blood Count 6.18 10^3/uL (3.29-11.43)
--- NOTE | 2024-02-22 08:10 | ECG_ITS ---
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 Measurements Intervals [place] Rate: 112 P: 0 [place]: 0 QRS: -3 QRSD: 82 T: 56 QT: 351 QTc: 481 Interpretive Statements ATRIAL FIBRILLATION WITH RAPID VENTRICULAR RESPONSE ABNORMAL RHYTHM ECG Compared to ECG 02/02/2024 07:38:37 Myocardial infarct finding no longer present Electronically Signed On 02-22-2024 22:22:39 IMPLANT COORDINATOR by Kavon Cordoba M.D. [id number]
--- NOTE | 2024-02-22 08:19 | W.ED.SOB ---
HPI - SOB/Dyspnea General: Chief Complaint: Shortness of Breath/Dyspnea Stated Complaint: sob Time Seen by Provider: 02/22/24 07:40 Source: patient and EMS Mode of arrival: EMS Limitations: no limitations History of Present Illness: HPI Narrative: 83-year-old male states he has been having some shortness of breath since this morning he states he woke up 4 AM and is feeling slightly short of breath he states it is improved currently he denies any cough denies any fever denies any chest pain patient's pulse ox here is 96% on room air he does have a history of A-fib. Associated symptoms: Deny abdominal pain, chest pain, fever(s), nausea or vomiting Related Data Home Medications Medication Instructions Recorded Confirmed apixaban 5 mg tablet (Eliquis) 5 mg PO DAILY 07/02/23 02/02/24 Previous Rx's Medication Instructions Recorded aspirin 81 mg tablet,delayed 81 mg PO QAM #30 tabs 06/26/23 release losartan 50 mg tablet 25 mg (1/2 x 50 mg) PO DAILY #60 01/26/24 tabs metoprolol tartrate 25 mg tablet 25 mg PO BID@0900,2100 #60 tabs 01/26/24 prednisone 20 mg tablet 20 mg PO DAILY #15 tabs 01/29/24 apixaban 5 mg tablet (Eliquis) 5 mg PO BID #60 tabs 02/02/24 metoprolol succinate 50 mg 75 mg (1.5 x 50 mg) PO DAILY #30 02/02/24 tablet,extended release 24 hr tabs (Toprol XL) furosemide 40 mg tablet (Lasix) 20 mg (1/2 x 40 mg) PO DAILY #30 02/22/24 tabs Allergies Allergy/AdvReac Type Severity Reaction Status Date / Time No Known Allergies Allergy Verified 02/11/24 18:26 Review of Systems Const: Denies: fever(s), chills, body aches or change in appetite ENMT: Denies: throat pain or dental pain Card: Denies: chest pain Resp: Reports: dyspnea GI: Denies: abdominal pain, nausea, vomiting or diarrhea : Denies: dysuria Musc: Denies: neck pain or back pain Skin/Breast: Denies: rash Neuro: Denies: headache(s) PFSH ED PFSH: Medical History Left ureteral calculus Renal mass Calculus of kidney with calculus of ureter History of atrial fibrillation Dyslipidemia (high LDL; low HDL) Chronic episodic atrial fibrillation Benign essential HTN Atherosclerotic heart disease of [place] coronary artery without angina pectoris Insomnia History of colon polyps Lumbar disc disease GERD (gastroesophageal reflux disease) Fibromyalgia Surgical History History of cardiac cath History of cholecystectomy History of shoulder surgery History of colonoscopy Family History Brother No problems noted. Father , at age 93 Dementia Parkinson disease Mother , at age 75 No problems noted. Denies family history of Diabetes CAD (coronary artery disease) Clotting disorder Chronic kidney disease (CKD) Suicide Anesthesia complication Bleeding disorder Lung disease Cancer Stroke Social History Smoking and tobacco/nicotine status: former use of tobacco/nicotine Alcohol intake: current Alcohol intake frequency: holidays/special occasions only Substance/Drug Use: never Housing: House Marital status: / Current occupational status: retired Physical Exam Const: COMMON NORMALS: no acute distress, patient oriented x3 and healthy appearing HENMT: COMMON NORMALS: normocephalic and atraumatic HEAD & SCALP: normocephalic and atraumatic Eye: COMMON NORMALS: Equal, round and reactive pupils present and EOMs intact bilaterally PUPIL: Yes Equal, round and reactive pupils present Neck/C-Spine: COMMON NORMALS: full ROM and supple Chest: COMMONS NORMALS: normal inspection of the chest and normal palpation of entire chest wall Resp: COMMON NORMALS: normal respiratory effort, No retractions, No use of accessory muscles and clear to auscultation bilaterally AUSCULTATION: clear to auscultation bilaterally Cardio: COMMON NORMALS: regular rate and regular rhythm RATE: regular rate RHYTHM: regular rhythm HEART SOUNDS: Murmur heart sound present systolic GI: COMMON NORMALS: Normal to inspection, nondistended, normoactive bowel sounds present, Soft to palpation, non-tender and no masses PALPATION: Yes Soft to palpation Extremity: COMMON NORMALS: normal to inspection and full ROM Neuro: COMMON NORMALS: patient oriented x3, moves all extremities and no focal motor deficits Psych: COMMON NORMALS: mental status grossly normal, Normal thought process present and cooperative THOUGHT PROCESS: Normal thought process present Skin: COMMON NORMALS: no rashes or lesions noted and no wounds GENERAL SKIN EXAM: no rashes or lesions noted Course Vital Signs: Vital signs: Vital Signs Pulse Rate 105 H 02/22/24 09:57 Respiratory Rate 28 H 02/22/24 09:10 Blood Pressure 162/114 02/22/24 09:57 Pulse Oximetry 91 02/22/24 09:57 MDM - SOB/Dyspnea Medical Decision Making Patient presents here with some shortness of breath has been elevated BNP he is not requiring any oxygen here x-ray shows no pneumonia we will start him on Lasix did give him IV Lasix here he stable for discharge follow-up with PCP return if worsening Medical Records I reviewed the patient's medical records. Lab Data I reviewed the patient's lab results. 02/22/24 07:55 02/22/24 07:55 Labs/Radiology: Radiology Impressions Chest X-Ray 02/22/24 07:41 IMPRESSION: No acute cardiopulmonary process. Laboratory Results WBC 6.18 10^3/uL (3.29-11.43) 02/22/24 07:55 RBC 3.61 10^6/uL (3.85-5.65) L 02/22/24 07:55 Hgb 12.00 g/dL (11.27-16.99) 02/22/24 07:55 Hct 37.0 % (37-53) 02/22/24 07:55 MCV 102.5 fl (82-101) H 02/22/24 07:55 MCH 33.2 pg (27-33) H 02/22/24 07:55 MCHC 32.4 g/dL (30-55) 02/22/24 07:55 RDW 14.9 % (12.1-15.1) 02/22/24 07:55 Plt Count 195 10^3/cmm (157-399) 02/22/24 07:55 MPV 10.5 fL (7.4-10.4) H 02/22/24 07:55 Neut % (Auto) 76.1 % 02/22/24 07:55 Lymph % (Auto) 9.5 % 02/22/24 07:55 [place] % (Auto) 10.5 % 02/22/24 07:55 Eos % (Auto) 2.9 % 02/22/24 07:55 Baso % (Auto) 0.5 % 02/22/24 07:55 Neut # (Auto) 4.70 10^3/uL (1.8-7.7) 02/22/24 07:55 Lymph # (Auto) 0.6 10^3/uL (0.8-4.8) L 02/22/24 07:55 [place] # (Auto) 0.7 10^3/uL (0.2-0.9) 02/22/24 07:55 Eos # (Auto) 0.2 10^3/uL (0.0-0.8) 02/22/24 07:55 Baso # (Auto) 0.0 10^3/uL (0.0-0.1) 02/22/24 07:55 Nucleated RBC % (auto) 0 % 02/22/24 07:55 Nucleated RBCs # 0.0 /100WBC 02/22/24 07:55 PT 22.50 SECONDS (12.1-14.9) H 02/22/24 07:55 INR 1.90 (0.8-1.2) H 02/22/24 07:55 Sodium 139 mmol/L (136-145) 02/22/24 07:55 Potassium 4.9 mmol/L (3.5-5.1) 02/22/24 07:55 Chloride 104 mmol/L (98-107) 02/22/24 07:55 Carbon Dioxide 21 mmol/L (22-29) L 02/22/24 07:55 Anion Gap 18.9 (5-19) 02/22/24 07:55 BUN 20 mg/dL (8-23) 02/22/24 07:55 Creatinine 1.3 mg/dL (0.7-1.2) H 02/22/24 07:55 GFR Calculation Not Reportable 02/22/24 07:55 Glucose 108 mg/dL (65-115) 02/22/24 07:55 Calculated Osmolality 291 mOsm/kg (285-295) 02/22/24 07:55 Calcium 9.2 mg/dL (8.5-10.5) 02/22/24 07:55 Total Bilirubin 1.9 mg/dL (0.15-1.2) H 02/22/24 07:55 AST 21 U/L (0-40) 02/22/24 07:55 ALT 17 U/L (0-41) 02/22/24 07:55 Alkaline Phosphatase 108 U/L (40-130) 02/22/24 07:55 NT-Pro-B Natriuret Pep 34881 pg/mL (0-450) H 02/22/24 07:55 Total Protein 6.9 g/dL (6.6-8.7) 02/22/24 07:55 Albumin 3.4 g/dL (3.5-5.2) L 02/22/24 07:55 Globulin 3.5 g/dL (1.3-4.6) 02/22/24 07:55 Coronavirus (PCR) Negative (Negative) 02/22/24 08:18 Influenza A (PCR) Negative (Negative) 02/22/24 08:18 Influenza Type B (PCR) Negative (Negative) 02/22/24 08:18 RSV (PCR) Negative (Negative) 02/22/24 08:18 All radiology interpretation(s) finalized by discharge EKG Data EKG 1: I personally reviewed and interpreted this EKG as follows: EKG Interpretation Date: 02/22/24 EKG interpretation time: 08:10 Interpretation: afib with rvr hr [address] or t wave abnormalities qrs 82 qtc 417 Discharge Plan Discharge Patient Disposition: Home Clinical Impression: Breath shortness Condition: Stable Prescriptions: New furosemide [Lasix] 40 mg tablet 20 mg PO DAILY Qty: 30 0RF No Action prednisone 20 mg tablet 20 mg PO DAILY Qty: 15 0RF Rx Instructions: 60mg for three days, 40mg for two days, 20mg for two days aspirin 81 mg Tablet,Delayed Release (Dr/Ec) 81 mg PO QAM Qty: 30 0RF Eliquis 5 mg tablet 5 mg PO DAILY losartan 50 mg Tablet 25 mg PO DAILY Qty: 60 0RF metoprolol tartrate 25 mg Tablet 25 mg PO BID@0900,2100 Qty: 60 0RF Eliquis 5 mg tablet 5 mg PO BID Qty: 60 0RF metoprolol succinate [Toprol XL] 50 mg tablet extended release 24 hr 75 mg PO DAILY Qty: 30 0RF Discharge Orders: Discharge ED (Routine); Ordered 02/22/24 Ordered By: Chza Lopez Discharge Diet: Advance as tolerated Discharge Activity: Resume usual activity Patient Instructions: Dyspnea (ED) Coding Level of Care Code ED Quality Coordinator for Victor M Hale
[2024-02-22] MEDS: labetalol 5 mg/mL SDV 20mL 10 MG IVP (08:28)
[2024-02-22 08:34] LABS: Alanine Aminotransferase 17 U/L (0-41); Albumin Level 3.4 g/dL (3.5-5.2); Alkaline Phosphatase 108 U/L (40-130); Anion Gap 18.9 (5-19); Aspartate Amino Transferase 21 U/L (0-40); Blood Urea Nitrogen 20 mg/dL (8-23); Calcium 9.2 mg/dL (8.5-10.5); Carbon Dioxide 21 mmol/L (22-29); Chloride 104 mmol/L (98-107); Creatinine Clr Calc Pharmacy 43.3059; Globulin 3.5 g/dL (1.3-4.6); Glucose 108 mg/dL (65-115); NT Pro B Type Natriuretic Pept 10143 pg/mL (0-450); Osmolality Calculated 291 mOsm/kg (285-295); Potassium 4.9 mmol/L (3.5-5.1); Sodium 139 mmol/L (136-145); Total Bilirubin 1.9 mg/dL (0.15-1.2); Total Protein 6.9 g/dL (6.6-8.7)
[2024-02-22 08:40] VITALS: BP 148/101; PULSE 100; RESP 23; O2SAT 97
[2024-02-22 09:02] LABS: Covid PCR NEGATIVE (Negative); Influenza A NEGATIVE (Negative); Influenza B NEGATIVE (Negative); Respiratory Syncytial Virus Ce NEGATIVE (Negative)
[2024-02-22 09:10] VITALS: BP 134/102; PULSE 98; RESP 28; O2SAT 96
[2024-02-22] MEDS: FUROsemide 10 mg/mL SDV 10mL 60 MG IVP (09:42)
[2024-02-22 09:57] VITALS: BP 162/114; PULSE 105; O2SAT 91
== END 2024-02-22 10:01 | disposition home or self-care (01) ==
PROVIDERS: Emergency Provider Emergency Medicine
DX: R06.02 Shortness of breath (principal); Z79.82 Long term (current) use of aspirin; Z79.01 Long term (current) use of anticoagulants; Z11.52 Encounter for screening for COVID-19; Z87.891 Personal history of nicotine dependence; E78.5 Hyperlipidemia, unspecified; I10 Essential (primary) hypertension; I25.10 Atherosclerotic heart disease of native coronary artery without angina pectoris
CPT/HCPCS: 0241U; 36415; 71045; 80053; 83880; 85025; 85610; 93005; 96374; 96375; 99285; J1940; J3490

== ENCOUNTER 2024-04-18 08:31 | Emergency (ER) | payer MEDICARE, MEDICAID, SELFPAY ==
[2024-04-18 08:34] VITALS: BP 121/72; PULSE 75; RESP 16; TEMP 36.7; O2SAT 91; BMI 26.6
--- NOTE | 2024-04-18 08:38 | ECG_ITS ---
[facility] Test Date: 2024-04-18 Pat Name: David Orozco Department: Room: Gender: Male Program Manager: : 1940 Requested By: Jennifer Stephen Order Number: [id number] Reading MD: VIRGINIA FORTE Measurements Intervals [place] Rate: 78 P: 0 [place]: 0 QRS: -1 QRSD: 111 T: 38 QT: 386 QTc: 440 Interpretive Statements ATRIAL FIBRILLATION LOW QRS VOLTAGE IN PRECORDIAL LEADS [QRS DEFLECTION < 1.0 mV IN CHEST LEADS] MODERATE INTRAVENTRICULAR CONDUCTION DELAY [110+ ms QRS DURATION] ABNORMAL RHYTHM ECG Compared to ECG 02/22/2024 08:10:07 Low QRS voltage now present Intraventricular conduction delay now present Electronically Signed On 04-18-2024 20:49:12 CLINICAL INFORMATICS PHYSICIAN by VIRGINIA FORTE [email or web address] [id number]
[2024-04-18 09:14] LABS: Basophils % 0.2 %; Eosinophils # 0.2 10^3/uL (0.0-0.8); Hematocrit 40.6 % (37-53); Lymphocytes # 2.3 10^3/uL (0.8-4.8); Lymphocytes % 23.9 %; Mean Corpuscular HGB Conc 32.3 g/dL (30-55); Mean Corpuscular Hemoglobin 30.3 pg (27-33); Mean Platelet Volume 9.8 fL (7.4-10.4); Monocytes # 1.2 10^3/uL (0.2-0.9); Monocytes % 12.8 %; Neutrophils # 5.71 10^3/uL (1.8-7.7); Neutrophils % 60.6 %; Nucleated Red Blood Cells % 0 %; Platelet Count 333 10^3/cmm (157-399); Red Blood Count 4.32 10^6/uL (3.85-5.65); Red Cell Distribution Width 15.1 % (12.1-15.1); White Blood Count 9.44 10^3/uL (3.29-11.43)
[2024-04-18 09:30] LABS: Troponin(5th) Baseline 18 ng/L (0-15)
[2024-04-18 09:37] LABS: Alanine Aminotransferase 24 U/L (0-41); Alkaline Phosphatase 89 U/L (40-130); Aspartate Amino Transferase 22 U/L (0-40); Blood Urea Nitrogen 26 mg/dL (8-23); Calcium 9.4 mg/dL (8.5-10.5); Carbon Dioxide 25 mmol/L (22-29); Chloride 97 mmol/L (98-107); Creatinine Clr Calc Pharmacy 46.3372; Globulin 3.8 g/dL (1.3-4.6); Glucose 106 mg/dL (65-115); NT Pro B Type Natriuretic Pept 1470 pg/mL (0-450); Osmolality Calculated 287 mOsm/kg (285-295); Sodium 136 mmol/L (136-145); Total Bilirubin 1.2 mg/dL (0.15-1.2); Total Protein 7.8 g/dL (6.6-8.7)
[2024-04-18 09:38] LABS: Anion Gap 18.5 (5-19); Potassium 4.5 mmol/L (3.5-5.1)
[2024-04-18 11:08] LABS: Troponin 5 2HR 16.04 ng/L (0-15); Troponin 5 2HR Delta -1.96 ABS# (0-10)
--- NOTE | 2024-04-18 11:13 | ECG_ITS ---
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
--- NOTE | 2024-04-18 11:39 | ED_ITS ---
HPI - Chest Pain 2 General: Chief Complaint: Chest Pain Stated Complaint: chest pain Time Seen by Provider: 04/18/24 09:01 History of Present Illness: This patient is an 83-year-old presenting with an episode of chest pain. He has a history of A-fib and cardiac issues. He is frequently seen in the ED for this. He also has a history of dementia. His family reports that he gets confused and they are not really sure what exactly all his symptoms have been today. On my exam he is denying chest pain. He did complain of a slight cough. No fevers. He really denies any significant complaints to me. Related Data Home Medications ?Medication ?Instructions ?Recorded ?Confirmed acetaminophen 325 mg capsule 325 mg PO QID PRN Pain 04/18/24 apixaban 2.5 mg tablet (Eliquis) 2.5 mg PO BID 5 04/18/24 bisacodyl 10 mg rectal suppository 10 mg AL DAILY PRN Constipation 04/18/24 04/18/24 (Dulcolax (bisacodyl)) furosemide 20 mg tablet 20 mg PO DAILY 04/18/2412/02 magnesium hydroxide 400 mg/5 mL 30 ml PO DAILY PRN Con stipation 04/18/24 04/18/24 oral suspension (Milk of Magnesia) Previous Rx's ?Medication ?Instructions ?Recorded aspirin 81 mg tablet,delayed 81 mg PO QAM #30 tabs release metoprolol tartrate 25 mg tablet 25 mg PO BID@0900,210 0 #60 tabs 01/26/24 Allergies Allergy/AdvReac Type Severity Reaction Status Date / Time No Known Allergies Allergy Verified 02/11/24 18:26 [facility] ED 2 [facility]: Medical History Left ureteral calculus Renal mass Calculus of kidney with calculus of ureter History of atrial fibrillation Dyslipidemia (high LDL; low HDL) Chronic episodic atrial fibrillation Benign essential HTN Atherosclerotic heart disease of [place] coronary artery without angina pectoris Insomnia History of colon polyps Lumbar disc disease GERD (gastroesophageal reflux disease) Fibromyalgia Surgical History History of cardiac cath History of cholecystectomy History of shoulder surgery History of colonoscopy Family History Brother No problems noted. Father , at age 93 Dementia Parkinson disease Mother , at age 75 No problems noted. Denies family history of Diabetes CAD (coronary artery disease) Clotting disorder Chronic kidney disease (CKD) Suicide Anesthesia complication Bleeding disorder Lung disease Cancer Stroke Social History Smoking and tobacco/nicotine status: former use of tobacco/nicotine Alcohol intake: current Alcohol intake frequency: holidays/special occasions only Substance/Drug Use: never Housing: House Marital status: / Current occupational status: retired Physical Exam 2 Const: COMMON NORMALS: no acute distress, patient oriented x3, no limitations and alert GENERAL APPEARANCE: cooperative and comfortable HENMT: HEAD & SCALP: normal to inspection FACE & SINUS: normal facial exam Eye: GENERAL EYE: appearance normal, both eyes and all related structures Neck/C-Spine: COMMON NORMALS: supple, no meningeal signs and no JVD Chest: COMMONS NORMALS: normal inspection of the chest Resp: COMMON NORMALS: normal respiratory effort, No use of accessory muscles and clear to auscultation bilaterally AUSCULTATION: clear to auscultation bilaterally Cardio: COMMON NORMALS: no JVD, No murmurs present (Cardio) and Peripheral pulses 2+ throughout RHYTHM: abnormal rhythm irregularly irregular P ERIPHERAL PULSES: Peripheral pulses 2+ throughout GI: COMMON NORMALS: Normal to inspection, nondistended, normoactive bowel sounds present, Soft to palpation and non-tender INSPECTION: Yes normal to inspection AUSCULTATION: Yes normoactive bowel sounds PALPATION: Yes Soft to palpation Back/Pelvis: COMMON NORMALS: thoracic and lumbar spine normal to inspection Extremity: COMMON NORMALS: normal to inspection Neuro: COMMON NORMALS: patient oriented x3, moves all extremities, no focal motor deficits and no sensory deficits noted SENSORIUM/ORIENTATION: Yes alert MENINGEAL SIGNS: Yes no meningeal signs Psych: COMMON NORMALS: mental status grossly normal, cooperative and normal affect Skin: COMMON NORMALS: no rashes or lesions noted and turgor normal GENERAL SKIN EXAM: no rashes or lesions noted and turgor normal Course 2 Vital Signs: Vital signs: Vital Signs Temperature 98.1 F 04/18/24 08:34 Pulse Rate 78 04/18/24 12:37 Respiratory Rate 16 04/18/24 08:34 Blood Pressure 114/76 04/18/24 12:37 Pulse Oximetry 97 04/18/24 12:37 Oxygen Delivery Me thod Room Air 04/18/24 12:29 MDM - Chest Pain Medical Decision Making Patient has a negative workup in terms of any cardiac disease. His troponin is negative with a negative delta. His BNP is slightly elevated but much below his prior levels. He was not noted to have any cough or shortness of breath in the ED. His sat is 91% on room air which looking back through prior records is fairly typical for him. He will be discharged back to his assisted living facility. Family is now at the bedside and will take him home. Lab Data 04/18/24 08:24 04/18/24 08:24 Laboratory Results WBC 9.44 10^3/uL (3.29-11.43) 04/18/24 08:24 RBC 4.32 10^6/uL (3.85-5.65) 04/18/24 08:24 Hgb 13.10 g/dL (11.27-16.99) 04/18/24 08:24 Hct 40.6 % (37-53) 04/18/24 08:24 MCV 94.0 fl (82-101) 04/18/24 08:24 MCH 30.3 pg (27-33) 04/18/24 08:24 MCHC 32.3 g/dL (30-55) 04/18/24 08:24 RDW 15.1 % (12.1-15.1) 04/18/24 08:24 Plt Count 333 10^3/cmm (157-399) 04/18/24 08:24 MPV 9.8 fL (7.4-10.4) 04/18/24 08:24 Neut % (Auto) 60.6 % 04/18/24 08:24 Lymph % (Auto) 23.9 % 04/18/24 08:24 [place] % (Auto) 12.8 % 04/18/24 08:24 Eos % (Auto) 2.0 % 04/18/24 08:24 Baso % (Auto) 0.2 % 04/18/24 08:24 Neut # (Auto) 5.71 10^3/uL (1.8-7.7) 04/18/24 08:24 Lymph # (Auto) 2.3 10^3/uL (0.8-4.8) 04/18/24 08:24 [place] # (Auto) 1.2 10^3/uL (0.2-0.9) H 04/18/24 08:24 Eos # (Auto) 0.2 10^3/uL (0.0-0.8) 04/18/24 08:24 Baso # (Auto) 0.0 10^3/uL (0.0-0.1) 04/18/24 08:24 Nucleated RBC % (auto) 0 % 04/18/24 08:24 Nucleated RBCs # 0.0 /100WBC 04/18/24 08:24 Sodium 136 mmol/L (136-145) 04/18/24 08:24 Potassium 4.5 mmol/L (3.5-5.1) 04/18/24 08:24 Chloride 97 mmol/L (98-107) L 04/18/24 08:24 Carbon Dioxide 25 mmol/L (22-29) 04/18/24 08:24 Anion Gap 18.5 (5-19) 04/18/24 08:24 BUN 26 mg/dL (8-23) H 04/18/24 08:24 Creatinine 1.2 mg/dL (0.7-1.2) 04/18/24 08:24 GFR Calculation Not Reportable 04/18/24 08:24 Glucose 106 mg/dL (65-115) 04/18/24 08:24 Calculated Osmolality 287 mOsm/kg (285-295) 04/18/24 08:24 Calcium 9.4 mg/dL (8.5-10.5) 04/18/24 08:24 Total Bilirubin 1.2 mg/dL (0.15-1.2) 04/18/24 08:24 AST 22 U/L (0-40) 04/18/24 08:24 ALT 24 U/L (0-41) 04/18/24 08:24 Alkaline Phosphatase 89 U/L (40-130) 04/18/24 08:24 Troponin T Baseline 18 ng/L (0-15) H 04/18/24 08:24 Troponin T 120 Minute 16.04 ng/L (0-15) H 04/18/24 10:22 Delta Troponin T -1.96 ABS# (0-10) L 04/18/24 10:22 NT-Pro-B Natriuret Pep 1470 pg/mL (0-450) H 04/18/24 08:24 Total Protein 7.8 g/dL (6.6-8.7) 04/18/24 08:24 Albumin 4.0 g/dL (3.5-5.2) 04/18/24 08:24 Globulin 3.8 g/dL (1.3-4.6) 04/18/24 08:24 All radiology interpretation(s) finalized by discharge Discharge Plan Discharge Patient Disposition: Home Clinical Impression: History of atrial fibrillation, Atypical chest pain Condition: Stable Prescriptions: No Action aspirin 81 mg Tablet,Delayed Release (Dr/Ec) 81 mg PO QAM Qty: 30 0RF metoprolol tartrate 25 mg Tablet 25 mg PO BID@0900,2100 Qty: 60 0RF Eliquis 2.5 mg Tablet 2.5 mg PO BID magnesium hydroxide [Milk of Magnesia] 400 mg/5 mL Suspension 30 ml PO DAILY PRN (Reason: Constipation) bisacodyl [Dulcolax (bisacodyl)] 10 mg Suppository 10 mg AL DAILY PRN (Reason: Constipation) furosemide 20 mg tablet 20 mg PO DAILY acetaminophen [Tylenol] 325 mg Capsule 325 mg PO QID PRN (Reason: Pain) Discharge Orders: Discharge ED (Routine); Ordered 04/18/24 Ordered By: Jennifer Ruff Discharge Diet: Advance as tolerated Discharge Activity: Increase activity as tolerated Patient Instructions: Opioid Safety, Pain Management Print Language: Lithuanian Coding Level of Care Code ED Cross Country/Track And Field Coach for Victor M Hale
[2024-04-18 12:29] VITALS: BP 114/76; PULSE 72; O2SAT 98
[2024-04-18 12:37] VITALS: BP 114/76; PULSE 78; O2SAT 97
== END 2024-04-18 12:39 | disposition home or self-care (01) ==
PROVIDERS: Emergency Provider Emergency Medicine
DX: R07.89 Other chest pain (principal); Z79.82 Long term (current) use of aspirin; Z79.01 Long term (current) use of anticoagulants; Z87.891 Personal history of nicotine dependence; I25.10 Atherosclerotic heart disease of native coronary artery without angina pectoris; I10 Essential (primary) hypertension
CPT/HCPCS: 36415; 80053; 83880; 84484; 85025; 93005; 99284